=== PATIENT | female | born 1945 | race Caucasian/White ===

== ENCOUNTER 2017-12-26 02:15 | Outpatient (CLI) | payer MEDICARE, OTHER, SELFPAY ==
[2017-12-26 11:42] LABS: Cholesterol 213 mg/dL (50-200); HDL Cholesterol 80 mg/dL (40-60); LDL CHOLESTEROL 115 mg/dL (<100); Triglyceride 146 mg/dL (30-150)
== END 2017-12-26 02:35 ==
PROVIDERS: PCP Family Medicine; Visit Provider Family Medicine
DX: E78.5 Hyperlipidemia, unspecified (principal)
CPT/HCPCS: 36415; 80061; 83721

== ENCOUNTER 2018-02-16 02:15 | Outpatient (CLI) | payer MEDICARE, OTHER, SELFPAY ==
[2018-02-16 12:13] LABS: ALT 33 U/L (12-78); AST 18 U/L (15-37); Albumin 3.6 g/dL (3.4-5.0); Alkaline Phosphatase 65 U/L (46-116); Anion Gap 7.1 mmol/L (3-11); BUN 17 mg/dL (7-18); Bilirubin, Total 0.4 mg/dL (0.2-1.0); CO2 30.9 mmol/L (21.0-32.0); CREATININE 1.08 mg/dL (0.55-1.02); Calcium 9.1 mg/dL (8.5-10.1); Chloride 104 mmol/L (98-107); Estimated GFR 49.87 (mL/min/1.73m2); Glucose 92 mg/dL (70-100); Potassium 4.2 mmol/L (3.5-5.1); Sodium 142 mmol/L (136-145); Total Protein 6.9 g/dL (6.4-8.2)
[2018-02-19 10:58] LABS: Hepatitis C Ab w Rflx HCV PCR Negative (NEGAT)
== END 2018-02-16 02:35 ==
PROVIDERS: PCP Family Medicine; Visit Provider Family Medicine
DX: R73.9 Hyperglycemia, unspecified (principal); N81.9 Female genital prolapse, unspecified; Z11.59 Encounter for screening for other viral diseases
CPT/HCPCS: 36415; 80053; 86803

== ENCOUNTER 2018-03-12 10:12 | Outpatient (CLI) | payer MEDICARE, OTHER, SELFPAY | END 2018-03-12 10:32 | PROVIDERS: PCP Family Medicine; Visit Provider Internal Medicine Interventional Cardiology | DX: R07.9 Chest pain, unspecified (principal); I31.9 Disease of pericardium, unspecified; I51.9 Heart disease, unspecified; I27.20 Pulmonary hypertension, unspecified; G47.30 Sleep apnea, unspecified; R00.2 Palpitations; I11.9 Hypertensive heart disease without heart failure | CPT/HCPCS: 93005; 93010; 99213 ==

== ENCOUNTER 2018-06-25 10:44 | Outpatient (CLI) | payer MEDICARE, OTHER, SELFPAY ==
[2018-06-25 15:20] LABS: NT-proBNP 82 pg/mL
== END 2018-06-25 11:04 ==
PROVIDERS: PCP Family Medicine; Visit Provider Internal Medicine Interventional Cardiology
DX: I27.20 Pulmonary hypertension, unspecified; R07.9 Chest pain, unspecified; I31.9 Disease of pericardium, unspecified; I51.9 Heart disease, unspecified; R06.02 Shortness of breath; I11.9 Hypertensive heart disease without heart failure
CPT/HCPCS: 36415; 99214; 83880; 93005; 93010

== ENCOUNTER 2018-07-04 00:35 | Outpatient (CLI) | payer MEDICARE, OTHER, SELFPAY ==
--- NOTE | 2018-07-04 06:39 | MERGEMPI_ITS ---
*[facility]* *[facility]* [address] [place] [address] Myocardial Perfusion Imaging - SPECT Greg protocol Date of study: 07/04/2018 *PATIENT PRESENTATION* Height: 161.3cm (63.5in) Blood Pressure: Weight: 104.1kg (229lb) BSA: 2.21m^2 Referring physician: Toño Vaca Ordering physician: Javid Perez MD Impressions: Abnormal study after maximal exercise with reproduction of symptoms. The stress electrocardiography portion appears to be a false positive. Summary: 1. Myocardial perfusion imaging: There is a moderate sized, moderately intense, fully reversible defect involving the anterior wall(s). Since this defect resolves completely with attenuation correction and the wall motion is normal this is consistent with breast artifact rather than ischemia. 2. The calculated left ventricular ejection fraction after stress: 61%. LV global systolic function is normal. No left ventricular regional motion abnormality. 3. Stress ECG conclusions: The stress ECG is positive. The stress ECG is indeterminate due to baseline ST/T wave abnormality. 4. Stress: The target heart rate was achieved. The heart rate response to stress is normal. There is resting hypertension with an appropriate response to stress. Stress-induced chest pain which resolved spontaneously. Exercise capacity is average for age. 5. Baseline ECG: Nonspecific ST changes. 6. Treadmill exercise testing was performed using the Greg protocol. The patient exercised for 4 min 52 sec, to protocol stage 2, to a maximal work rate of 6.9mets. Exercise was terminated due to fatigue. Imaging information: gated. Image quality reduced due to breast attenuation. Attenuation correction used. Recommendations: Clinical correlation is recommended. Indication: I50.30. History: REASON FOR TESTING: PATIENT HERE TODAY FOR SURGICAL CLEARANCE FOR A PELVIC PROLAPSE PROCEDURE AT [facility] [place] [facility] FURTHER RISK STRATIFICATION FOR DIASTOLIC HEART DISEASE. SINCE LAST FALL PATIENT REPORTS MIDSTERNAL CHEST PAIN/PRESSURE (09/17) WITH WALKING UP STAIRS, SHOVELING SNOW, AND OCCASIONALLY AT REST. THIS CHEST PAIN/PRESSURE MAY LAST BETWEEN 5 TO 30 MINUTES. OCCASIONALLY HER CHEST PAIN IS ASSOCIATED WITH HORRIBLE MUSCLE YVETTE IN HER LEFT ARM. SHE ALSO NOTES COUGHING WITH CHEST PRESSURE WHEN WALKING UP AND DOWN STAIRS. PATIENT DENIES CHEST PAIN /PRESSURE UP ON ARRIVAL TO TESTING TODAY. SIGNIFICANT PAST MEDICAL HISTORY: DIASTOLIC DYSFUNCTION, PERICARDIAL EFFUSION WITH PERICARDIAL WINDOW, SJOGREN'S DISEASE. SMOKING STATUS: QUIT 2009. SMOKED FOR 50 YEARS, 1 PPD. EXERCISE ROUTINE: ACTIVE WITH DAILY ADL'S OF RUNNING HER INN. Risk factors: Family history of coronary artery disease. Hypertension. Obesity. Dyslipidemia. Cholesterol: 213mg/dl. HDL: 80mg/dl. LDL: 115mg/dl. Triglycerides: 146mg/dl. ALLERGIES: CODEINE, MORPHINE, OXYCODONE, LACTOSE, PENTAZOCINE, VARENICLINE, AUGMENTIN. MEDICATIONS: VITAMIN D 2000 UNITS DAILY, ASPIRIN 81 DAILY, MECLIZINE 12.5 TO 25 MG TID PRN, SUCRALFATE 1 GM DAILY, TRIAMCINOLONE OINTMENT BID, OMEPRRAZOLE 20 MG DAILY, SERTRALINE 25 MG DAILY, TRAMADOL 50 MG PRN, ESTRADOIL 0.01% VAGINAL CREAM PRN, ISOSORBIDE MONONITRATE ER 30 MG DAILY, SPIRONOLACTONE (UNSURE OF DOSE) DAILY. Imaging Technique: Protocol: Greg protocol. Acquisition: Gated SPECT; 1 day - rest/stress. The patient was imaged in the supine position. Attenuation correction used. Isotope administration: - Rest. Tc[99m]-sestamibi. Dose: 9.7mCi. Injection time: 08:30 AM. Injection to stress time: 00:45. - Stress. Tc[99m]-sestamibi. Dose: 31.3mCi. Injection time: 10:10 AM. 1-2 min before end of exercise Baseline ECG: SINUS RHYTHM. HR [address] changes. Stress protocol: + +---+ + !Stage !HR !BP (mmHg) ! + +---+ + !Baseline supine !60 !160/84 (109)! + +---+ + !Baseline standing !67 !160/90 (113)! + +---+ + !Stage I; 1.7mph, 10degrees; 3 min!124!160/80 (107)! + +---+ + !Peak stress !135! ! + +---+ + !Immediate post stress !110!180/80 (113)! + +---+ + !Recovery; 5 min !81 !160/78 (105)! + +---+ + !Recovery; 7 min !77 !150/80 (103)! + +---+ + !Recovery; 10 min !74 !148/80 (103)! + +---+ + * Stress results: STRESS TEST ENDED IN 4 MINUTES 52 SECONDS DUE TO FATIGUE. NORMAL HEART RATE AND BLOOD PRESSURE RESPONSE TO EXERCISE. MAX HEART RATE: 135. 91 % OF TARGET HEART RATE ACHIEVED. MET'S: 6.87. RARE PAC'S IN RECOVERY. HORIZONTAL ST SEGMENT DEPRESSIONS IN LEADS V4, V5 AND V6 AT 4 MINUTES 49 SECONDS OF EXERCISE, BECOMING DOWNWARD SLOPING AT 2 MINUTES [address] SEGMENT DEPRESSIONS RETURN TO BASELINE AT 10 MINUTES 1 SECOND OF RECOVERY. CHEST PRESSURE 6/10 AT PEAK EXERCISE. CHEST PRESSURE 3/10 AT 1 MINUTE OF RECOVERY. CHEST PRESSURE SUBSIDED BY 6 MINUTES OF RECOVERY. FUNCTIONAL CAPACITY: AVERAGE CAPACITY. Maximal heart rate during stress was 135bpm (91% of maximal predicted heart rate). The maximal predicted heart rate was 148bpm. The target heart rate was achieved. The heart rate response to stress is normal. There is resting hypertension with an appropriate response to stress. The rate-pressure product for the peak heart rate and blood pressure was 61171jn Hg/min. Stress-induced chest pain which resolved spontaneously. Exercise capacity is average for age. Stress ECG: The stress ECG is positive. The stress ECG is indeterminate due to baseline ST/T wave abnormality. Stress ECG change: horizontal depression. Severity: 2.0-3.0mm. In lead groups: II, III, aVF and V3 - V6. Myocardial perfusion: Imaging information: gated. Image quality reduced due to breast attenuation. Left ventricular size is normal. There is a moderate sized, moderately intense, fully reversible defect involving the anterior wall(s). Since this defect resolves completely with attenuation correction and the wall motion is normal this is consistent with breast artifact rather than ischemia. Ventricular Function (Wall Motion): The calculated left ventricular ejection fraction after stress: 61%. LV global systolic function is normal. No left ventricular regional motion abnormality. Study data: Toño Vaca MD supervised and was readily available during the procedure. This study was interpreted by [facility]. Study status: Routine. Consent: The risks, benefits, and alternatives to the procedure were explained to the patient and informed consent was obtained. Procedure: Initial setup. A baseline ECG was recorded. Surface ECG leads and manual cuff blood pressure measurements were monitored. Heart sounds: Normal. Lung sounds: Normal. Treadmill exercise testing was performed using the Greg protocol. The patient exercised for 4 min 52 sec, to protocol stage 2, to a maximal work rate of 6.9mets. Exercise was terminated due to fatigue. Study completion: All catheters inserted during the procedure were removed. The patient tolerated the procedure well and was discharged from the lab. Discharge: The patient left the laboratory in stable condition. Birthdate: Patient birthdate: 1945. Sex: Gender: female. Study date: Study date: 07/04/2018. Study time: 00:01 AM. Signature Documentation: - The imaging portion of this study was interpreted by Nuclear Crisis Counselor Toño Vaca MD. - The imaging portion of this study was interpreted by Nuclear Radiologist More Dalal MD. - The Stress ECG portion of this study was interpreted by Toño Vaca MD. Electronically signed by Toño Vaca 07/04/2018 14:58
== END 2018-07-04 00:55 ==
PROVIDERS: PCP Family Medicine; Visit Provider Internal Medicine Interventional Cardiology
DX: R07.89 Other chest pain (principal); I50.30 Unspecified diastolic (congestive) heart failure; R94.30 Abnormal result of cardiovascular function study, unspecified; Z01.810 Encounter for preprocedural cardiovascular examination
CPT/HCPCS: 78452; 93016; 93018; 93017

== ENCOUNTER 2018-07-09 00:44 | Outpatient (CLI) | payer MEDICARE, OTHER, SELFPAY ==
--- NOTE | 2018-07-09 13:55 | MERGE_ITS ---
*[facility]* *[facility]* [address] [place] [address] Date of study: 07/09/2018 Transthoracic Echocardiography M-mode, complete 2D, complete spectral Doppler, and color Doppler *STUDY CONCLUSIONS* Summary: 1. Left ventricle: The cavity size was normal. Systolic function was normal. The estimated ejection fraction was 60-65%. Diastolic parameters were normal for age. There was no evidence of elevated ventricular filling pressure by Doppler parameters. 2. Right ventricle: The cavity size was normal. Wall thickness was normal. Systolic function was normal. 3. Atrial septum: No defect or patent foramen ovale was identified. 4. Pulmonary arteries: Pulmonary systolic pressure was >= 25mm Hg. 5. Inferior vena cava: Poorly visualized. *PATIENT PRESENTATION* Height: 162.6cm ((64in) ) S/D Pressure: 132 / 78 Weight: 103.9kg ((228.5lb) ) BSA: 2.22m^2 Test start time: 01:55 PM. Test stop time: 02:50 PM. ORDERING Javid Perez MD REFERRING Javid Perez MD PERFORMING Unknown CONSULTING Loida Duarte PERFORMING [facility] ROD DRAWER RT Adrienne Montes)(ORDERICK)ANGELA *PROCEDURE DATA* Procedure information: The patient was identified by two identifiers. This study was interpreted by [facility]. Pertinent images and digital data are archived for permanent storage and are available for subsequent review. Comparison was made to the study of 11/19/2013. Study status: Routine. Transthoracic echocardiography. M-mode, complete 2D, complete spectral Doppler, and color Doppler. A Transthoracic Echocardiogram was performed. Scanning was performed from the parasternal, apical, subcostal, and suprasternal notch acoustic windows. Images were obtained using an [id number] cardiac ultrasound machine. Image quality was adequate. Study completion: The patient tolerated the procedure well. History: PMH: Diastolic congestive heart failure I50.30 *CARDIAC ANATOMY* Left ventricle: The cavity size was normal. Systolic function was normal. The estimated ejection fraction was 60-65%. The tissue Doppler parameters were abnormal. Diastolic parameters were normal for age. There was no evidence of elevated ventricular filling pressure by Doppler parameters. Aortic valve: Trileaflet. Doppler: There was no stenosis. There was no regurgitation. VTI ratio of LVOT to aortic valve: 0.71. Valve area (VTI): 1.8cm^2. Indexed valve area (VTI): 0.8cm^2/m^2. Peak velocity ratio of LVOT to aortic valve: 0.83. Valve area (Vmax): 2.1cm^2. Indexed valve area (Vmax): 0.9cm^2/m^2. Mean velocity ratio of LVOT to aortic valve: 0.7. Valve area (Vmean): 1.8cm^2. Indexed valve area (Vmean): 0.8cm^2/m^2. Mean gradient (S): 7.2mm Hg. Peak gradient (S): 13.1mm Hg. Aorta: Aortic root: The aortic root was normal in size. Ascending aorta: The ascending aorta was at upper normal limits. Mitral valve: Doppler: There was no evidence for stenosis. There was no significant regurgitation. Valve area by pressure half-time: 4.1cm^2. Indexed valve area by pressure half-time: 1.9cm^2/m^2. Peak gradient (D): 2.2mm Hg. Left atrium: The atrium was normal in size. Atrial septum: No defect or patent foramen ovale was identified. Right ventricle: The cavity size was normal. Wall thickness was normal. Systolic function was normal. Pulmonic valve: Doppler: There was no evidence for stenosis. There was mild regurgitation. Peak gradient (S): 3.3mm Hg. Tricuspid valve: Doppler: There was mild regurgitation. Pulmonary artery: Poorly visualized. Pulmonary systolic pressure was >= 25mm Hg. Right atrium: The atrium was normal in size. Pericardium: There was no pericardial effusion. Systemic veins: Inferior vena cava: Poorly visualized. Baseline ECG: Normal sinus rhythm. Measurements Left ventricle Value Reference LV ID, ED, PLAX 5.2 cm 3.5 - 6.0 LV ID, ES, PLAX 3.4 cm 2.1 - 4.0 LV PW thickness, ED, PLAX 1.1 cm LV end-diastolic volume, 1-p A2C 39 ml LV ejection fraction, 1-p A2C 62 % LV end-diastolic volume, 1-p A4C 49 ml LV ejection fraction, 1-p A4C 64 % LV e', lateral 0.093 m/sec LV E/e', lateral 8 LV e', medial 0.062 m/sec LV E/e', medial 12 LV e', average 0.078 m/sec LV E/e', average 10 Ventricular septum Value Reference IVS thickness, ED, PLAX 1.1 cm LVOT Value Reference LVOT ID, A-P 1.8 cm LVOT area 2.5 cm^2 LVOT peak velocity, S 1.5 m/sec LVOT mean velocity, S 0.89 m/sec LVOT VTI, S 27.0 cm LVOT peak gradient, S 9 mm Hg LVOT mean gradient, S 3.9 mm Hg Stroke volume (SV), LVOT DP 68 ml Stroke index (SV/bsa), LVOT DP 31 ml/m^2 Aortic valve Value Reference Aortic valve peak velocity, S 1.8 m/sec Aortic valve mean velocity, S 1.27 m/sec Aortic valve VTI, S 38.0 cm Aortic mean gradient, S 7.2 mm Hg Aortic peak gradient, S 13.1 mm Hg VTI ratio, LVOT/AV 0.71 Aortic valve area, VTI 1.8 cm^2 Velocity ratio, peak, LVOT/AV 0.83 Aortic valve area, peak velocity 2.1 cm^2 Velocity ratio, mean, LVOT/AV 0.7 Aortic valve area, mean velocity 1.8 cm^2 Aortic valve area/bsa, mean velocity 0.8 cm^2/m^2 Aorta Value Reference Aortic root ID, ED 2.7 cm Ascending aorta ID, A-P, S 3.1 cm Left atrium Value Reference LA ID, A-P, ES 4.3 cm LA ID/bsa, A-P 1.9 cm/m^2 <=2.2 LA area, ES, A4C 19.9 cm^2 8.8 - 23.4 LA area, ES, A2C 16 cm^2 LA volume/bsa, ES, 1-p A4C 30 ml/m^2 LA volume, ES, 2-p 47 ml LA volume/bsa, ES, 2-p 21 ml/m^2 LA/aortic root ratio 1.59 Mitral valve Value Reference Mitral E-wave peak velocity 0.74 m/sec Mitral A-wave peak velocity 0.88 m/sec Mitral deceleration time 183 ms 150 - 230 Mitral pressure half-time 53 ms Mitral peak gradient, D 2.2 mm Hg Mitral E/A ratio, peak 0.84 Mitral valve area, PHT, DP 4.1 cm^2 Pulmonary veins Value Reference Pulmonary vein peak velocity, S 0.52 m/sec Pulmonary vein peak velocity, D 0.52 m/sec Pulmonary vein velocity ratio, peak, 1.01 S/D Pulmonary vein A-wave reversal peak 0.35 m/sec velocity Pulmonary vein A-wave reversal 149 ms duration Tricuspid valve Value Reference Tricuspid regurg peak velocity 2.7 m/sec Tricuspid peak RV-RA gradient 30 mm Hg Right atrium Value Reference RA area, ES, A4C 14.4 cm^2 8.3 - 19.5 Pulmonic valve Value Reference Pulmonic peak gradient, S 3.3 mm Hg Legend: (L) and (H) juan carlos values outside specified reference range. I have personally reviewed the images and have reviewed and edited the reported findings. Electronically signed by Javid Perez MD 07/09/2018 18:12
== END 2018-07-09 01:04 ==
PROVIDERS: PCP Family Medicine; Visit Provider Internal Medicine Interventional Cardiology
DX: I50.30 Unspecified diastolic (congestive) heart failure (principal)
CPT/HCPCS: 93306

== ENCOUNTER 2018-07-20 10:04 | Outpatient (CLI) | payer MEDICARE, OTHER, SELFPAY ==
[2018-07-20 13:40] LABS: Anion Gap 10.3 mmol/L (3-11); BUN 20 mg/dL (7-18); CO2 29.7 mmol/L (21.0-32.0); CREATININE 1.08 mg/dL (0.55-1.02); Calcium 9.4 mg/dL (8.5-10.1); Chloride 102 mmol/L (98-107); Estimated GFR 49.87 (mL/min/1.73m2); Glucose 99 mg/dL (70-100); NT-proBNP 55 pg/mL; Potassium 3.8 mmol/L (3.5-5.1); Sodium 142 mmol/L (136-145)
== END 2018-07-20 10:24 ==
PROVIDERS: PCP Family Medicine; Visit Provider Internal Medicine Interventional Cardiology
DX: I50.30 Unspecified diastolic (congestive) heart failure (principal); I31.9 Disease of pericardium, unspecified
CPT/HCPCS: 36415; 80048; 83880

== ENCOUNTER 2018-07-23 09:41 | Outpatient (CLI) | payer MEDICARE, OTHER, SELFPAY | END 2018-07-23 10:01 | PROVIDERS: PCP Family Medicine; Visit Provider Internal Medicine Interventional Cardiology | DX: R07.9 Chest pain, unspecified (principal); I11.9 Hypertensive heart disease without heart failure; I31.9 Disease of pericardium, unspecified; I51.9 Heart disease, unspecified | CPT/HCPCS: 99214; 99215 ==

== ENCOUNTER 2018-09-10 08:38 | Outpatient (CLI) | payer MEDICARE, OTHER, SELFPAY | END 2018-09-10 08:58 | PROVIDERS: PCP Family Medicine; Visit Provider Internal Medicine Interventional Cardiology | DX: R07.9 Chest pain, unspecified (principal); I11.9 Hypertensive heart disease without heart failure; I31.9 Disease of pericardium, unspecified; I51.9 Heart disease, unspecified; I27.20 Pulmonary hypertension, unspecified; R11.0 Nausea | CPT/HCPCS: 99214; 99215 ==

== ENCOUNTER 2018-09-13 02:06 | Outpatient (CLI) | payer MEDICARE, OTHER, SELFPAY ==
[2018-09-13 11:06] LABS: Abs Immature Grans 0.01 k/cumm (0.0-0.09); Absolute Basophil Count 0.03 k/cumm (0.0-0.2); Absolute Eosinophil Count 0.15 k/cumm (0.0-0.7); Absolute Lymphocyte Count 2.17 k/cumm (1.2-3.4); Absolute Neutrophil Count 2.71 k/cumm (1.2-6.7); Basophils % 0.5; Eosinophils % 2.6; HCT 38.9 % (36.0-46.0); HGB 12.8 g/dL (12.0-15.5); Immature Grans % 0.2; Lymphocytes % 38.3; Mean Corp. HGB Concentration 32.9 g/dL (32.0-36.0); Mean Corpuscular Volume 97.3 fL (80-95); Mean Platelet Volume 9.6 fL (8.0-11.0); Monocytes % 10.6; Neutrophils % 47.8; Platelet Count 225 x1000/uL (130-400); RBC Distribution Width 12.9 % (11.7-14.6); White Blood Cell Count 5.67 k/cumm (4.4-10.8)
[2018-09-13 11:17] LABS: ALT 27 U/L (12-78); AST 16 U/L (15-37); Albumin 3.5 g/dL (3.4-5.0); Alkaline Phosphatase 68 U/L (46-116); Anion Gap 9.2 mmol/L (3-11); BUN 13 mg/dL (7-18); Bilirubin, Total 0.4 mg/dL (0.2-1.0); CO2 27.8 mmol/L (21.0-32.0); CREATININE 1.14 mg/dL (0.55-1.02); Calcium 8.6 mg/dL (8.5-10.1); Chloride 105 mmol/L (98-107); Estimated GFR 46.85 (mL/min/1.73m2); Glucose 101 mg/dL (70-100); Potassium 4.2 mmol/L (3.5-5.1); Sodium 142 mmol/L (136-145); Total Protein 6.5 g/dL (6.4-8.2)
[2018-09-13 11:18] LABS: Iron 85 ug/dL (50-175); Total Iron Binding Capacity 301 ug/dL (250-450); Transferrin Sat 28 % (15-50)
== END 2018-09-13 02:26 ==
PROVIDERS: PCP Family Medicine; Visit Provider Family Medicine
DX: R10.9 Unspecified abdominal pain (principal); Z86.2 Personal history of diseases of the blood and blood-forming organs and certain disorders involving the immune mechanism
CPT/HCPCS: 36415; 80053; 83540; 83550; 85025

== ENCOUNTER 2018-11-21 15:52 | Outpatient (CLI) | payer MEDICARE, OTHER, SELFPAY ==
--- NOTE | 2018-11-21 15:52 | DI.RAD_ITS ---
SYMPTOMS/DIAGNOSIS: LEFT FOOT PAIN WITH EDEMA/TENDERNESS, LATERAL FOOT, M79.672 LEFT FOOT: Comparison is made with December,. There is minimal deformity of the medial 1st metatarsal head, likely reflecting previous bunionectomy. There are mild degenerative changes at the 1st MTP joint. There are degenerative changes at the 1st tarsometatarsal joint and prior proximal 1st metatarsal osteotomy. The remaining MTP joints are unremarkable. No bony erosions are seen. IMPRESSION: Stable degenerative and postsurgical changes.
[2018-11-21 16:37] LABS: Abs Immature Grans 0.01 k/cumm (0.0-0.09); Absolute Basophil Count 0.03 k/cumm (0.0-0.2); Absolute Monocyte Count 1.01 k/cumm (0.11-0.7); Absolute Neutrophil Count 3.44 k/cumm (1.2-6.7); Basophils % 0.4; Eosinophils % 2.6; HCT 39.1 % (36.0-46.0); Immature Grans % 0.1; Mean Corp. HGB Concentration 33.2 g/dL (32.0-36.0); Mean Corpuscular Volume 96.3 fL (80-95); Mean Platelet Volume 9.1 fL (8.0-11.0); Monocytes % 13.1; Neutrophils % 44.8; Platelet Count 238 x1000/uL (130-400); RBC 4.06 m/cumm (4.00-5.20); RBC Distribution Width 12.6 % (11.7-14.6); White Blood Cell Count 7.69 k/cumm (4.4-10.8)
[2018-11-21 17:43] LABS: C-Reactive Protein 0.47 mg/dL (0.0-0.3); Uric Acid 5.4 mg/dL (2.6-6.0)
== END 2018-11-21 16:12 ==
PROVIDERS: PCP Family Medicine; Visit Provider Family Medicine
DX: M79.672 Pain in left foot (principal); M19.072 Primary osteoarthritis, left ankle and foot
CPT/HCPCS: 36415; 73630; 84550; 85025; 86140

== ENCOUNTER 2019-01-29 02:14 | Outpatient (CLI) | payer MEDICARE, SELFPAY ==
[2019-01-29 12:12] LABS: BUN 17 mg/dL (7-18); Calcium 9.5 mg/dL (8.5-10.1); Calculated LDL 129 mg/dL; Chloride 105 mmol/L (98-107); Cholesterol 230 mg/dL (50-200); Estimated GFR 44.04 (mL/min/1.73m2); Glucose 93 mg/dL (70-100); HDL Cholesterol 70 mg/dL (40-60); Potassium 4.2 mmol/L (3.5-5.1); Sodium 144 mmol/L (136-145); Triglyceride 155 mg/dL (30-150)
== END 2019-01-29 02:34 ==
PROVIDERS: PCP Family Medicine; Visit Provider Family Medicine
DX: E78.5 Hyperlipidemia, unspecified (principal)
CPT/HCPCS: 36415; 80048; 80061

== ENCOUNTER 2019-02-28 03:20 | Outpatient (CLI) | payer MEDICARE, SELFPAY ==
[2019-02-28 10:46] LABS: Iron 73 ug/dL (50-170)
[2019-02-28 11:01] LABS: Anion Gap 7.1 mmol/L (3-11); BUN 16 mg/dL (7-18); CO2 31.9 mmol/L (21.0-32.0); CREATININE 1.12 mg/dL (0.55-1.02); Calcium 9.5 mg/dL (8.5-10.1); Chloride 104 mmol/L (98-107); Estimated GFR 47.69 (mL/min/1.73m2); Ferritin 181 ng/mL (8-252); Glucose 101 mg/dL (74-106); Potassium 4.4 mmol/L (3.5-5.1); Sodium 143 mmol/L (136-145); TSH 4.85 uIU/mL (0.36-3.74)
== END 2019-02-28 03:40 ==
PROVIDERS: PCP Family Medicine; Visit Provider Family Medicine
DX: D12.6 Benign neoplasm of colon, unspecified (principal); F32.9 Major depressive disorder, single episode, unspecified; G25.81 Restless legs syndrome; R79.89 Other specified abnormal findings of blood chemistry
CPT/HCPCS: 36415; 80048; 82728; 83540; 84443

== ENCOUNTER → 2019-03-12 13:05 | Outpatient (BNVA) | payer MEDICARE, OTHER, SELFPAY | PROVIDERS: PCP Family Medicine; Referring Provider Family Medicine; Visit Provider Internal Medicine Cardiovascular Disease | DX: I31.9 Disease of pericardium, unspecified (principal); I51.9 Heart disease, unspecified; I10 Essential (primary) hypertension; F17.200 Nicotine dependence, unspecified, uncomplicated | CPT/HCPCS: 99205; 99215 ==

== ENCOUNTER 2019-03-14 01:16 | Outpatient (CLI) | payer MEDICARE, OTHER, SELFPAY ==
--- NOTE | 2019-03-14 12:15 | DI.MAMMO_ITS ---
EXAM: MAMMO SCREENING CLINICAL HISTORY: screening, Z12.39 TECHNIQUE: Mammograms were interpreted according to the usual protocol including computer analysis w [employer] CAD system, tomosynthesis and C-view imaging. COMPARISON: 2009 through 2017. FINDINGS: The breasts are composed of scattered fibroglandular densities, breast density category B. No suspic ious masses or suspicious microcalcifications are seen. There is a stable area of nodularity central ly in the inferior left breast. IMPRESSION: Category 2, negative mammogram with benign findings. Yearly screening mammography is recommended. BI-RADS Cat 2 - Benign Findings Breast Density - Category B - Scattered areas of fibroglandular density
== END 2019-03-14 01:36 ==
PROVIDERS: PCP Family Medicine; Visit Provider Family Medicine
DX: Z12.31 Encounter for screening mammogram for malignant neoplasm of breast (principal)
CPT/HCPCS: 77063; 77067

== ENCOUNTER 2019-05-27 14:49 | Outpatient (CLI) | payer MEDICARE, SELFPAY ==
--- NOTE | 2019-05-27 14:30 | DI.RAD_ITS ---
EXAM: XR CHEST 2V PA AND LATERAL INDICATION: SHORTNESS OF BREATH/HX OF PERICARDITIS, R06.02. COMPARISON: CHEST 2 VIEWS PA,LAT from 10/31/2012 TECHNIQUE: 2D digital imaging was performed. FINDINGS: The heart size and pulmonary vasculature are within normal limits. The lungs are clear. No pleural effusion or pneumothorax is present. Age-appropriate degenerative changes are seen in the spine. IMPRESSION: No acute pulmonary process.
[2019-05-27 15:42] LABS: Abs Immature Grans 0.02 k/cumm (0.0-0.09); Absolute Basophil Count 0.03 k/cumm (0.0-0.2); Absolute Eosinophil Count 0.21 k/cumm (0.0-0.7); Absolute Lymphocyte Count 3.15 k/cumm (1.2-3.4); Absolute Monocyte Count 0.98 k/cumm (0.11-0.7); Absolute Neutrophil Count 3.64 k/cumm (1.2-6.7); Basophils % 0.4; Eosinophils % 2.6; HCT 41.8 % (36.0-46.0); HGB 13.5 g/dL (12.0-15.5); Immature Grans % 0.2 %; Lymphocytes % 39.2; Mean Corp. HGB Concentration 32.3 g/dL (32.0-36.0); Mean Corpuscular Hemoglobin 30.8 pg (27.0-33.0); Mean Corpuscular Volume 95.2 fL (80-95); Monocytes % 12.2; Neutrophils % 45.4; Platelet Count 264 x1000/uL (130-400); RBC 4.39 m/cumm (4.00-5.20); White Blood Cell Count 8.03 k/cumm (4.4-10.8)
[2019-05-27 17:01] LABS: Magnesium 2.1 mg/dL (1.8-2.4); TSH 4.65 uIU/mL (0.36-3.74)
[2019-05-27 17:39] LABS: Anion Gap 9.5 mmol/L (3-11); BUN 17 mg/dL (7-18); CO2 28.5 mmol/L (21.0-32.0); CREATININE 1.04 mg/dL (0.55-1.02); Calcium 8.8 mg/dL (8.5-10.1); Chloride 104 mmol/L (98-107); Estimated GFR 51.94 (mL/min/1.73m2); Glucose 85 mg/dL (74-106); Potassium 4.1 mmol/L (3.5-5.1); Sodium 142 mmol/L (136-145)
== END 2019-05-27 15:09 ==
PROVIDERS: Internal Medicine Cardiovascular Disease; PCP Family Medicine; Visit Provider Family Medicine
DX: R06.02 Shortness of breath (principal); I10 Essential (primary) hypertension; E83.42 Hypomagnesemia; R79.89 Other specified abnormal findings of blood chemistry
CPT/HCPCS: 36415; 80048; 71046; 83735; 84443; 85025

== ENCOUNTER 2019-08-20 01:34 | Outpatient (CLI) | payer MEDICARE, SELFPAY ==
[2019-08-20 16:23] LABS: TSH (W/Ref FT4) 2.75 uIU/mL (0.36-3.74)
== END 2019-08-20 01:54 ==
PROVIDERS: PCP Family Medicine; Visit Provider Family Medicine
DX: E03.9 Hypothyroidism, unspecified (principal)
CPT/HCPCS: 36415; 84443

== ENCOUNTER → 2019-09-13 13:31 | Outpatient (BNVA) | payer MEDICARE, SELFPAY | PROVIDERS: PCP Family Medicine; Referring Provider Family Medicine; Visit Provider Internal Medicine Cardiovascular Disease | DX: R06.02 Shortness of breath (principal); I31.9 Disease of pericardium, unspecified | CPT/HCPCS: 99214 ==

== ENCOUNTER 2019-10-14 20:31 | Outpatient (REF) | payer MEDICARE, SELFPAY ==
[2019-10-14 21:34] LABS: Absolute Basophil Count 0.01 k/cumm (0.0-0.2); Absolute Eosinophil Count 0.16 k/cumm (0.0-0.7); Absolute Lymphocyte Count 2.99 k/cumm (1.2-3.4); Absolute Monocyte Count 0.84 k/cumm (0.11-0.7); Absolute Neutrophil Count 3.49 k/cumm (1.2-6.7); Basophils % 0.1; Eosinophils % 2.1; HCT 41.5 % (36.0-46.0); HGB 13.3 g/dL (12.0-15.5); Lymphocytes % 39.9; Mean Corpuscular Hemoglobin 30.7 pg (27.0-33.0); Mean Corpuscular Volume 95.8 fL (80-95); Mean Platelet Volume 10.4 fL (8.0-11.0); Monocytes % 11.2; Neutrophils % 46.7; Platelet Count 256 x1000/uL (130-400); RBC 4.33 m/cumm (4.00-5.20); RBC Distribution Width 13.4 % (11.7-14.6); White Blood Cell Count 7.49 k/cumm (4.4-10.8)
[2019-10-14 21:45] LABS: ALT 38 U/L (14-59); AST 25 U/L (15-37); Albumin 3.9 g/dL (3.4-5.0); Alkaline Phosphatase 67 U/L (46-116); Anion Gap 9.8 mmol/L (3-11); BUN 14 mg/dL (7-18); Bilirubin, Total 0.4 mg/dL (0.2-1.0); CO2 28.2 mmol/L (21.0-32.0); CREATININE 1.15 mg/dL (0.55-1.02); Calcium 8.9 mg/dL (8.5-10.1); Chloride 104 mmol/L (98-107); Estimated GFR 46.25 (mL/min/1.73m2); Glucose 97 mg/dL (74-106); NT-proBNP 81 pg/mL (<300); Potassium 3.7 mmol/L (3.5-5.1); Sodium 142 mmol/L (136-145); Total Protein 7.1 g/dL (6.4-8.2)
== END 2019-10-14 20:51 ==
LOC: LBN 20:31
PROVIDERS: PCP Family Medicine; Visit Provider Family Medicine
DX: R06.02 Shortness of breath (principal); H81.10 Benign paroxysmal vertigo, unspecified ear
CPT/HCPCS: 80053; 83880; 85025

== ENCOUNTER 2019-11-08 11:20 | Outpatient (CLI) | payer MEDICARE, SELFPAY ==
--- NOTE | 2019-11-08 11:15 | DI.RAD_ITS ---
EXAM: XR PELVIS AP CLINICAL HISTORY: eval bilateral R>L hip pain. TECHNIQUE: 2D digital imaging was performed. COMPARISON: No exams were available for comparison FINDINGS: BONES: No acute fracture is present. No bony destructive lesion is seen. There is sacralization of the right L5 transverse process. JOINTS: No dislocation present. No joint space narrowing is present. There is mild to moderate aceta bular spurring, greatest superiorly on the right. There is mild spurring of the SI joints. SOFT TISSUE: Normal. IMPRESSION: Mild degenerative changes, greater of the right hip. DATA REPOSITORY: RADIATION DOSE DELIVERED:
--- NOTE | 2019-11-08 11:15 | DI.RAD_ITS ---
EXAM: XR KNEE LT 3V AP,LAT,JUNIOR CLINICAL HISTORY: eval L knee pain. TECHNIQUE: 2D digital imaging was performed. COMPARISON: MR MRI L LOWER JOINT WO CONT from 03/13/2013 FINDINGS: BONES: No acute fracture is present. No bony destructive lesion is seen. JOINTS: There is moderate narrowing of the medial femoral tibial joint. There is mild periarticular spurring.. No joint effusion is seen. SOFT TISSUE: Normal. IMPRESSION: Moderate degenerative changes of the medial femoral tibial joint. DATA REPOSITORY: RADIATION DOSE DELIVERED:
--- NOTE | 2019-11-08 11:15 | DI.RAD_ITS ---
EXAM: XR KNEE RT 3V AP,LAT,JUNIOR CLINICAL HISTORY: eval R knee pain. TECHNIQUE: 2D digital imaging was performed. COMPARISON: CR XR KNEE LT 3V AP,LAT,JUNIOR from 11/08/2019 FINDINGS: BONES: No acute fracture is present. No bony destructive lesion is seen. JOINTS: The knee is normally aligned. No joint effusion is seen. There is moderate narrowing of the m edial femoral tibial joint space and mild periarticular spurring. There is spurring at the quadricep s insertion on the patella. SOFT TISSUE: Normal. IMPRESSION: Moderate degenerative changes. DATA REPOSITORY: RADIATION DOSE DELIVERED:
== END 2019-11-08 11:40 ==
PROVIDERS: PCP Family Medicine; Referring Provider Family Medicine; Visit Provider Student in an Organized Health Care Education/Training Program
DX: M25.561 Pain in right knee (principal); M25.562 Pain in left knee; M25.551 Pain in right hip; M25.552 Pain in left hip; M17.11 Unilateral primary osteoarthritis, right knee; M17.12 Unilateral primary osteoarthritis, left knee; M25.851 Other specified joint disorders, right hip; M25.852 Other specified joint disorders, left hip; M16.0 Bilateral primary osteoarthritis of hip
CPT/HCPCS: 20610; 73562; 99203; 99214; 72170; J1040

== ENCOUNTER 2019-11-13 03:12 | Outpatient (CLI) | payer MEDICARE, SELFPAY ==
--- NOTE | 2019-11-13 13:56 | DI.US_ITS ---
APPROVED REPORT EXAM: Comprehensive 2D, Doppler, and color-flow Echocardiogram Patient Location: Out-Patient [place] [facility] Repairer: Lexi Capellan RDCS (AE) Indications: SOB, Murmur Other Information Study Quality: Adequate Conclusion Left Ventricle : Left ventricle is borderline dilated. The left ventricular systolic function is norm al. The left ventricular ejection fraction is within the normal range. There is normal left ventricul ar wall thickness. There is normal LV segmental wall motion. The left ventricular diastolic function is normal. LVEF is 55-60%. Right Ventricle : The right ventricle is normal size. The right ventricular systolic function is norm al. The RVSP is 29.9 mmHg. Atria : The left atrium size is normal. The right atrium size is normal. Valves: There are no hemodynamically significant valvular lesions. Great Vessels : The aortic root is normal in size. The ascending aorta is mildly dilated. IVC is norm al in size and collapses >50% with inspiration. Compared to study from 07/09/2018, there is no significant change. Wall motion Left Ventricle Left ventricle is borderline dilated. The left ventricular systolic function is normal. The left vent ricular ejection fraction is within the normal range. There is normal left ventricular wall thickness . There is normal LV segmental wall motion. The left ventricular diastolic function is normal. There is no ventricular septal defect visualized. LVEF is 55-60%. Right Ventricle The right ventricle is normal size. The right ventricular systolic function is normal. The RVSP is 29 .9 mmHg. Atria The left atrium size is normal. The right atrium size is normal. The interatrial septum is intact wit h no evidence for an atrial septal defect. Aortic Valve Aortic valve is trileaflet. There is no aortic valvular stenosis. No aortic regurgitation is present. Mitral Valve The mitral valve is normal in structure. Mild mitral annular calcification. No evidence of mitral jolly ve stenosis. Trace to mild mitral regurgitation. Tricuspid Valve The tricuspid valve is normal in structure. There is no tricuspid valve stenosis. Trace tricuspid reg urgitation. Pulmonic Valve The pulmonary valve is normal in structure. There is no pulmonic valvular stenosis. Trace to mild pul riley regurgitation. Great Vessels The aortic root is normal in size. The ascending aorta is mildly dilated. IVC is normal in size and c ollapses >50% with inspiration. Pericardium There is no pericardial effusion. 2D Dimensions IVSD d PLAX 0.69 cm F: 0.6-1.0 LV Vol A2C d MOD 83.5 mL LVPW d PLAX 0.70 cm F: 0.6 - 1.0 LV Vol A4C d MOD 91.4 mL LVID d PLAX 5.40 cm F: 3.8 - 5.2 LA vol/ BSA A2C s A-L 22.5 mL/m2 LVDs 3.80 cm F: 2.2 - 3.5 LA vol/ BSA A4C s A-L 27.1 mL/m2 Ao Root d 2.23 cm F: 2.7 - 3.3 LA Vol/ BSA Biplane s A-L 24.9 mL/m2 RA Area A4C 10.57 cm2 LA Area A4C s MOD 19.08 cm2 RA Vol/ BSA A4C s A-L 10.2 mL/m2 LA Area A2C s MOD 17.25 cm2 Ao Asc Diam d 3.28 cm F: 2.3 - 3.1 LV EF A4C MOD 53.7 % LV EF Teichholz 55.6 % LV EF A2C MOD 59.7 % LVEF (Paz's) 54.58 % F: 54 - 74 LV EF Biplane MOD 54.6 % LV Volume 64.67 mL F: 46 - 106 SV 47.69 mL LV Volume Index 31.09 mL/m2 F: 29 - 61 SV Index 22.90 mL/m2 LV Vol Biplane MOD 87.4 mL FS 29.25 % M-Mode TAPSE 2.17 cm (M/F) >1.7 LV Diastology MV E' medial 0.067 (>0.07 m/s) E/A Ratio 0.8 LV E/e MED 10.20 (<14) MV E Vmax 0.69 (0.4-1.3 m/s) MV E' lateral 0.120 (>0.1 m/s) MV A Vmax 0.85 (0.4-1.3 m/s) LV E/e LAT 5.75 (<14) MV E/A Ratio 0.81 MV E/E' medial 10.25 MV E/E' lateral 5.75 Aortic Valve LVOT Area 2.88 cm2 AoV Area Vmax 2.75 cm2 LVOT Vmax 1.58 m/s AoV Area/ BSA (Vmax) 1.32 cm2/m2 LVOT Mean Smith. 0.86 m/s RASHIDA Mean Smith. 2.24 cm2 LVOT Peak Grad 10.0 mmHg RASHIDA Mean Smith. Index 1.08 cm2/m2 LVOT Mean Grad 3.8 mmHg LVOT VTI 0.318 m LVOT Diam s 1.90 cm AoV Vmax 1.65 m/s Velocity Ratio 0.95 AoV Mean Smith. 1.11 m/s AoV Peak Grad 10.9 mmHg LVOT SV 91.60 mL AoV Mean Grad 5.6 mmHg AoV VTI 0.349 m AoV Area VTI 2.62 cm2 AoV Area/ BSA (VTI) 1.26 cm/m2 Mitral Valve MV DT 173 (160-240 msec) MV PHT 50 msec MV Area PHT 4.39 cm2 Pulmonary Valve PV Vmax 0.96 (0.5-1.5 m/s) RVOT Peak Gr. 2.21 mmHg PV Peak Grad 3.7 mmHg RVOT Mean Gr. 1.15 mmHg PV Mean Grad 2.1 mmHg RVOT VTI 0.163 m PV VTI 0.212 m RVOT Vmax 0.74 m/s Tricuspid Valve TR Peak Grad 26.8 mmHg TR Vmax 2.59 m/s RA Pressure 3.00 mmHg RVSP (TR) 29.9 mmHg
== END 2019-11-13 03:32 ==
PROVIDERS: PCP Family Medicine; Visit Provider Family Medicine
DX: R06.02 Shortness of breath (principal); I77.810 Thoracic aortic ectasia; I34.0 Nonrheumatic mitral (valve) insufficiency
CPT/HCPCS: 93306

== ENCOUNTER 2019-12-11 18:22 | Outpatient (REF) | payer MEDICARE, SELFPAY ==
[2019-12-11 23:00] LABS: Abs Immature Grans 0.02 10^3/uL (0.0-0.06); Absolute Basophil Count 0.03 10^3/uL (0.0-0.2); Absolute Eosinophil Count 0.16 10^3/uL (0.0-0.7); Absolute Lymphocyte Count 3.44 10^3/uL (1.2-3.4); Absolute Monocyte Count 0.92 10^3/uL (0.1-0.8); Absolute Neutrophil Count 3.38 10^3/uL (1.2-6.7); Basophils % 0.4; HCT 42.2 % (36.0-46.0); HGB 13.6 g/dL (11.2-15.7); Immature Grans % 0.3; Lymphocytes % 43.3; MCHC 32.2 % (32.0-36.0); MCV 96.1 fL (80-95); MPV 10.4 fL (8.0-11.0); Monocytes % 11.6; Neutrophils % 42.4; Nucleated RBC 0 %; Platelet Count 243 10^3/uL (130-400); RBC 4.39 10^6/uL (3.93-5.22); RDW 12.7 % (11.7-14.6); WBC 7.95 10^3/uL (4.4-10.8)
[2019-12-11 23:28] LABS: ALT 45 U/L (14-59); AST 26 U/L (15-37); Albumin 3.7 g/dL (3.4-5.0); Alkaline Phosphatase 66 U/L (46-116); Amylase 46 U/L (25-115); Anion Gap 7.4 mmol/L (3-11); BUN 15 mg/dL (7-18); Bilirubin, Total 0.3 mg/dL (0.2-1.0); C-Reactive Protein 0.43 mg/dL (0.0-0.3); CO2 29.6 mmol/L (21.0-32.0); Calcium 9.1 mg/dL (8.5-10.1); Chloride 104 mmol/L (98-107); Estimated GFR 48.55 (mL/min/1.73m2); Glucose 85 mg/dL (74-106); Lipase 103 U/L (73-393); Potassium 4.3 mmol/L (3.5-5.1); Sodium 141 mmol/L (136-145); TSH 4.67 uIU/mL (0.36-3.74); Total Protein 7.1 g/dL (6.4-8.2)
== END 2019-12-11 18:42 ==
LOC: LBN 18:22
PROVIDERS: PCP Family Medicine; Visit Provider Family Medicine
DX: R10.9 Unspecified abdominal pain (principal); E03.9 Hypothyroidism, unspecified; R07.9 Chest pain, unspecified
CPT/HCPCS: 80053; 83690; 82150; 84443; 85025; 86140

== ENCOUNTER → 2019-12-31 11:20 | Outpatient (BNVA) | payer MEDICARE, SELFPAY | PROVIDERS: PCP Family Medicine; Referring Provider Family Medicine; Visit Provider Surgery | DX: K21.9 Gastro-esophageal reflux disease without esophagitis (principal); R13.10 Dysphagia, unspecified; R19.7 Diarrhea, unspecified; K44.9 Diaphragmatic hernia without obstruction or gangrene; M79.18 Myalgia, other site; M35.00 Sjogren syndrome, unspecified; Z11.59 Encounter for screening for other viral diseases | CPT/HCPCS: 99213 ==

== ENCOUNTER 2020-01-17 07:47 | Outpatient (CLI) | payer MEDICARE, SELFPAY ==
[2020-01-19 12:40] LABS: COVID-19 RT-PCR Result NEGATIVE (Negative)
== END 2020-01-17 08:07 ==
PROVIDERS: PCP Family Medicine; Visit Provider Surgery
DX: Z11.59 Encounter for screening for other viral diseases (principal); Z01.818 Encounter for other preprocedural examination
CPT/HCPCS: U0003

== ENCOUNTER 2020-01-22 06:23 | Day surgery (SDC) | payer MEDICARE, SELFPAY ==
--- NOTE | 2020-01-22 06:33 | W.PM.ENDDOP ---
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 Ibanez is a pleasant 74 year old female who is here today to discuss an upper endoscopy. She is known to have gastroesophageal reflux disease and has been on omeprazole 40 mg daily for quite some years. She tells me that she had a CT scan done in 2018 which showed a large hiatal hernia. Over the last month or so she has noted increased reflux symptoms. She has to sleep propped up otherwise she wakes up either burping or throwing up foam and bile. 2 weeks ago she was changed from omeprazole to pantoprazole 40 mg twice daily and she has not noted much difference in her symptoms. She tells me that she continues to throw up foam and bile sometimes tinged with a little bit of blood. She has been eating a bland diet. If she tries to eat anything fatty or spicy she will have worse heartburn and reflux type symptoms. She is able to eat chicken rice bread without any difficulty. She has not lost any weight. She also states that she feels like food even water sometimes gets stuck in her esophagus and she has to regurgitate them. She also notes increased episodes of diarrhea. She denies any melena or hematochezia. She has never had an upper endoscopy before. She did have a colonoscopy and is due for another 1 in the spring 2020. FINDINGS: duodenal mass- looks like a lipoma mild inflammation of the pylorus and antrum. Multiple <1 cm fundic gland polyps Hiatal hernia Mild inflammation of the GE junction PROCEDURE DESCRIPTION: After informed consent was obtained the patient was take to the procedure room and placed in a supine position. Monitors were applied and a time out was done. The patients name, date of , procedure type, allergies to medications and metal in their body was reviewed. A bite block was placed and the patient was sedated. Once sedated and comfortable the gastroscope was advanced through the oropharynx which was grossly normal into the esophagus. The proximal and mid-esophagus were normal. In the distal esophagus there was a Hiatal Hernia noted and mild inflammation noted. The scope was advanced into the stomach and through the pylorus into the 3rd portion of the duodenum. There was a well circumscribed, and soft mass in the 3rd portion of the duodenum. The mucosa was normal. This was consistent with a lipoma. Biopsies were done of the presumed lipoma. The scope was retracted back into the stomach. There was mild inflammation noted of the pylorus and body of the stomach. There were numerous small (<1 cm) benign appearing polyps. Biopsies were done of the pylorus and antrum to rule out H. pylori. There were no ulcers. The scope was retro-flexed. The cardia and fundus were noted to be normal. There was a hiatal hernia noted. The scope was retracted back into the esophagus and biopsies were done of the GE junction to rule out Schneider's. The Z line was irregular. The distal esophagus was tortuous. The GE junction was at 32 cm. The scope was removed and the patient was woken up and taken back to [facility] in stable condition. Follow up: 2 weeks. Will start on Carafate to see if this helps.
--- NOTE | 2020-01-22 06:35 | PDOC.DSDIS_ITS ---
Discharge Plan Disposition Patient Disposition: HOME Condition: Good Discharge Details Reason For Visit: EGD Attending Provider: Therese Smith Primary Care Provider: Loida Duarte Home Meds and New Rx's Prescriptions: New sucralfate [Carafate] 1 gram tablet 1 g PO TID Qty: 42 RF: 0 Continued halobetasol propionate 0.05 % ointment 1 applic TP BID RF: 0 triamcinolone acetonide 0.5 % ointment 1 applic TP BID Qty: 15 RF: 4 losartan 25 mg tablet 25 mg PO DAILY Qty: 90 RF: 4 tramadol 50 mg tablet 50 mg PO DAILY Qty: 30 RF: 4 furosemide 40 mg tablet 40 mg PO DAILY Qty: 90 RF: 3 sertraline 25 mg tablet 25 mg PO DAILY RF: 0 cholecalciferol (vitamin D3) [Vitamin D3] 2,000 UNIT capsule 2,000 unit PO DAILY RF: 0 meclizine 25 MG tablet 0.5 - 1 tab PO TID PRNQty: 30 RF: 2 isosorbide mononitrate 30 mg tablet extended release 24 hr 30 mg PO DAILY Qty: 90 RF: 4 ropinirole 2 mg tablet 2 mg PO QHS Qty: 90 RF: 2 pantoprazole 40 mg tablet,delayed release (DR/EC) 40 mg PO BID Qty: 60 RF: 1 levothyroxine 50 mcg tablet 50 mcg PO DAILY Qty: 30 RF: 2 aspirin [Aspir-81] 81 MG tablet,delayed release (DR/EC) 81 mg PO DAILY RF: 0 colchicine 0.6 mg tablet 0.6 mg PO BID RF: 0 Discontinued meloxicam 15 mg tablet 15 mg PO DAILY Qty: 30 RF: 2 Hold Instructions: Home Medication placed on hold at Doctor's office Discharge Instructions Instructions: Diet for Stomach Ulcers and Gastritis (ED), Gastritis (DC), Hiatal Hernia (DC) Additional Instructions: Findings: mild inflammation of the stomach and esophagus Small Hiatal Hernia Follow up: 2 weeks Please call if you develop: fevers >101.5 Nausea or Vomiting Abdominal pain that is not transient DAY SURGERY UNIT POST ENDOSCOPY INSTRUCTIONS 1. Because there will be medication in your system for the next 24 hours, you may feel a little sleepy. Your coordination will be affected. Therefore: a. Do not drive or operate dangerous equipment for 24 hours. b. Do not drink alcohol beverages for 24 hours (not even beer). c. Plan to go home and rest for the day. 2. Generally there are no restrictions on your activity after a day or so has gone by, but you may feel a bit fatigued for a few days. 3 After you arrive home you may have a light meal and return to a normal diet as you can tolerate it without feeling sick to your stomach. 4. After surgery, you may feel pain or discomfort. This should be only transient, but if it persists please contact your doctor. 5. If there are any questions regarding the findings of your procedure, please feel free to contact your doctor. 6. If you are unable to contact your doctor with a problem, contact the hospital at [phone]. 7. Continue all your regular medications unless directed otherwise. I understand the above instructions and have no questions. Signature of Patient or Responsible Adult Escort Date/Time Name of Responsible Adult Escort Signature of Nurse Date/Time Referrals: Therese Smith MD [ [facility] STAFF PHYSICIAN] - Activity:: Activity as Tolerated Diet:: low acid diet Discharge Orders Discharge Orders: Discharge Order (Routine); Ordered 01/22/20 Ordered By: Therese Smith
[2020-01-22 06:39] VITALS: BP 124/70; PULSE 66; RESP 16; TEMP 36.5; O2SAT 95
[2020-01-22] MEDS: Lactated Ringers 1,000 ML 80 ML IV (07:05)
--- NOTE | 2020-01-22 07:31 | STOM_PTH ---
PATIENT: Fe Ibanez LOC: [facility] U#:[id number] AGE/SX: 74/F ROOM: RE01/22/[address]: Therese Smith MD : 1945 BED: DIS: 01/22/2020 SPEC #: [id number] RECD: 01/22/20 12:32 STATUS: DEMIAN REQ #: [id number] MICHAEL: 01/22/20 07:[address]: Therese Smith DEPT: Surgical Specimen RECD BY: Kassy Gilmore ENTERED: 01/22/20 12:35 SP TYPE: STOMACH OTHR DR: Loida Duarte MD Tissues: 1 - BIOPSY BOWEL 2 - STOMACH BIOPSY 3 - STOMACH BIOPSY 4 - ESOPHAGUS BIOPSY Procedures: GROSS AND MICRO LEVEL 4 IMMUNOPEROXIDASE STAIN Comments: [id number]
[2020-01-22 08:16] VITALS: BP 105/67; PULSE 61; RESP 16; TEMP 36.3; O2SAT 96
== END 2020-01-22 09:23 | disposition home or self-care (01) ==
PROVIDERS: PCP Family Medicine; Visit Provider Surgery
PROC: 0DJ68ZZ Inspection of Stomach, Via Natural or Artificial Opening Endoscopic (ICD-10-PCS; CPT 43235; principal; 2020-01-22 07:30)
DX: K21.9 Gastro-esophageal reflux disease without esophagitis (principal); K31.7 Polyp of stomach and duodenum
CPT/HCPCS: 43239; 88305; 88361; J2001

== ENCOUNTER → 2020-02-04 10:23 | Outpatient (BNVA) | payer MEDICARE, SELFPAY | PROVIDERS: PCP Family Medicine; Referring Provider Family Medicine; Visit Provider Surgery | DX: K21.9 Gastro-esophageal reflux disease without esophagitis (principal); K29.50 Unspecified chronic gastritis without bleeding | CPT/HCPCS: 99212; 99213 ==

== ENCOUNTER → 2020-03-23 13:56 | Outpatient (BNVA) | payer MEDICARE, SELFPAY | PROVIDERS: PCP Family Medicine; Referring Provider Family Medicine; Visit Provider Student in an Organized Health Care Education/Training Program | DX: M17.12 Unilateral primary osteoarthritis, left knee (principal); M17.11 Unilateral primary osteoarthritis, right knee; R22.31 Localized swelling, mass and lump, right upper limb | CPT/HCPCS: 20610; 99213; J1040 ==

== ENCOUNTER 2020-03-25 02:34 | Outpatient (CLI) | payer MEDICARE, SELFPAY ==
[2020-03-31 09:50] LABS: COVID-19 RT-PCR UVMMC Result Negative (Negative)
== END 2020-03-25 02:54 ==
PROVIDERS: PCP Family Medicine; Visit Provider Family Medicine
DX: Z20.828 Contact with and (suspected) exposure to other viral communicable diseases (principal)
CPT/HCPCS: U0003

== ENCOUNTER 2020-04-21 02:05 | Outpatient (CLI) | payer MEDICARE, SELFPAY ==
[2020-04-21 13:01] LABS: TSH 3.04 uIU/mL (0.36-3.74)
== END 2020-04-21 02:25 ==
PROVIDERS: PCP Family Medicine; Visit Provider Family Medicine
DX: E03.9 Hypothyroidism, unspecified (principal)
CPT/HCPCS: 36415; 84443

== ENCOUNTER 2020-05-04 15:11 | Outpatient (CLI) | payer MEDICARE, SELFPAY ==
--- NOTE | 2020-05-04 14:45 | DI.RAD_ITS ---
EXAM: XR WRIST LT COMPLETE CLINICAL HISTORY: L wrist pain. TECHNIQUE: 2D digital imaging was performed. COMPARISON: No exams were available for comparison FINDINGS: Three views reveal the presence of a prosthesis at the articulation between the thumb metacarpal and distal carpal row, laterally.. The prosthesis is long stem into the level of the junction of the yuval physis and neck region of the thumb metacarpal. There is mild uniform lucency around the diaphysis c omponent, possibly significant. No radiographic evidence of osteomyelitis. There is also a 4.4 by 4 .3 millimeter calcification just lateral to the prostheSis component. Proximal carpal row appears un remarkable. Distal radius and ulna appear unremarkable. No significant ulnar variance. No osseous lesions. IMPRESSION: DATA REPOSITORY: RADIATION DOSE DELIVERED:
== END 2020-05-04 15:31 ==
PROVIDERS: PCP Family Medicine; Referring Provider Family Medicine; Visit Provider Student in an Organized Health Care Education/Training Program
DX: M25.532 Pain in left wrist (principal); Z96.692 Finger-joint replacement of left hand; G56.02 Carpal tunnel syndrome, left upper limb; R22.32 Localized swelling, mass and lump, left upper limb
CPT/HCPCS: 99214; 73110

== ENCOUNTER 2020-05-15 02:14 | Outpatient (CLI) | payer MEDICARE, SELFPAY ==
[2020-05-15 10:15] LABS: CREATININE 1.1 mg/dL (0.55-1.02); Estimated GFR 48.55 (mL/min/1.73m2)
[2020-05-15] MEDS: Normal Saline Flush 10 ML SYR IVP (10:20)
[2020-05-15] MEDS: Gadoterate meglumine 20 ML VIAL IVP (10:21)
--- NOTE | 2020-05-15 11:15 | DI.MRI_ITS ---
EXAM: MR UPPER JOINT LT WO/W CLINICAL HISTORY: LT WRIST PAIN, MASS LT WRIST,M25.532,R22.32. TECHNIQUE: Multiplanar multisequence MRI was performed. COMPARISON: None. FINDINGS: The examination is limited due to patient motion artifact. BONES: There is no fracture or contusion pattern. Postsurgical changes of a joint prosthesis at the 1 st [facility] joint is noted. JOINTS: The radiocarpal joint is unremarkable. The carpal joints are unremarkable. TENDONS: Flexors: Unremarkable. Extensors: Unremarkable. MUSCLES: Unremarkable. MEDIAN NERVE: Unremarkable on this noncontrast examination. ULNAR NERVE: Unremarkable on this noncontrast examination. SOFT TISSUES: There is a well-circumscribed fat density lesion on the dorsal medial aspect of the wri st in the subcutaneous tissues measuring 3.0 cm craniocaudad by 1.1 cm AP x 2.1 cm transverse. There is no enhancement following contrast administration. The finding is most consistent with a lipoma. There appears to be a similar lesion at the anterior medial aspect of the wrist measuring 1.1 cm cc by 0.6 cm AP x 2.1 cm transverse also consistent with a lipoma. There is a 3rd lesion lateral to the radius in the subcutaneous tissues. It measures 1.1 craniocaudad by 1.1 AP by 0.9 transverse cm. I t is fat density on all pulse sequences. Following contrast administration there does appear there d oes appear to be septal enhancement and enhancement of the periphery. Due to its enhancement pattern , a liposarcoma cannot be excluded. There is no involvement of the underlying bone tendons or muscle s. LIGAMENTS: Unremarkable. TRIANGULAR FIBROCARTILAGE: Unremarkable. OTHER: IMPRESSION: 1. Two fat density nonenhancing lesions, 1 in the dorsal medial soft tissues and 1 in the anterior me dial soft tissues, most consistent with lipomas. 2. Enhancing fat density lesion in the medial soft tissues measuring 1.1 x 1.1 x 0.9 cm. Due to it i ts enhancement pattern, a liposarcoma cannot be excluded. DATA REPOSITORY:
== END 2020-05-15 02:15 | disposition home or self-care (01) ==
LOC: DI 02:14
PROVIDERS: PCP Family Medicine; Visit Provider Student in an Organized Health Care Education/Training Program
DX: R22.32 Localized swelling, mass and lump, left upper limb (principal); M25.532 Pain in left wrist
CPT/HCPCS: 73223; 82565; 82575

== ENCOUNTER → 2020-06-16 11:32 | Outpatient (BNVA) | payer MEDICARE, SELFPAY | PROVIDERS: PCP Family Medicine; Referring Provider Student in an Organized Health Care Education/Training Program; Visit Provider Psychiatry & Neurology Neurology | DX: R20.2 Paresthesia of skin (principal) | CPT/HCPCS: 95909; 99213 ==

== ENCOUNTER 2020-08-20 02:05 | Outpatient (CLI) | payer MEDICARE, SELFPAY ==
[2020-08-20 13:03] LABS: ALT 42 U/L (14-59); AST 21 U/L (15-37); Albumin 3.7 g/dL (3.4-5.0); Alkaline Phosphatase 67 U/L (46-116); Anion Gap 7.6 mmol/L (3-11); BUN 15 mg/dL (7-18); Bilirubin, Total 0.4 mg/dL (0.2-1.0); CO2 30.4 mmol/L (21.0-32.0); CREATININE 1.1 mg/dL (0.55-1.02); Calcium 9.3 mg/dL (8.5-10.1); Chloride 106 mmol/L (98-107); Estimated GFR 48.55 (mL/min/1.73m2); Glucose 103 mg/dL (74-106); Potassium 4.2 mmol/L (3.5-5.1); Sodium 144 mmol/L (136-145); TSH (W/Ref FT4) 1.91 uIU/mL (0.36-3.74); Total Protein 6.9 g/dL (6.4-8.2)
== END 2020-08-20 02:06 | disposition home or self-care (01) ==
LOC: LOS 02:05
DX: E03.9 Hypothyroidism, unspecified (principal)
CPT/HCPCS: 36415; 80053; 84443

== ENCOUNTER 2020-11-13 10:40 | Outpatient (CLI) | payer MEDICARE, SELFPAY ==
--- NOTE | 2020-11-13 10:16 | DI.RAD_ITS ---
Exam(s) XR ANKLE LT COMPLETE EXAM: XR ANKLE LT COMPLETE CLINICAL HISTORY: left ankle pain TECHNIQUE: COMPARISON: CR LEFT ANKLE COMPLETE from 01/06/2014 FINDINGS: Three views were obtained. The ankle mortise appears fairly well maintained. Mild marginal osteophy te formation noted involving the tibiotalar joint and talofibular joint. No other bony or soft tissu e abnormality seen. IMPRESSION: Mild DJD tibiotalar joint. RADIATION DOSE DELIVERED: Total DLP
== END 2020-11-13 10:41 | disposition home or self-care (01) ==
LOC: DIORS 10:41
PROVIDERS: Visit Provider Student in an Organized Health Care Education/Training Program
DX: M25.572 Pain in left ankle and joints of left foot (principal); R22.32 Localized swelling, mass and lump, left upper limb
CPT/HCPCS: 99213; 73610

== ENCOUNTER 2020-11-23 02:04 | Outpatient (CLI) | payer MEDICARE, SELFPAY ==
--- NOTE | 2020-11-23 11:55 | DI.MRI_ITS ---
Exam(s) MR LOWER JOINT LT WO EXAM: MR LOWER JOINT LT WO CLINICAL HISTORY: Evaluate subtalar joint calcaneus,LT HEEL PAIN,M79.672 TECHNIQUE: Multiplanar multisequence MRI was performed without intravenous contrast. COMPARISON: No exams were available for comparison FINDINGS: SKIN: No evidence of ulcer nor subcutaneous tract. However, there is subcutaneous edema over both si antonio of the ankle evident. BONES/JOINTS: No evidence of fracture nor bone contusion. There is a small ankle joint effusion. Th e talar dome appears unremarkable. The ankle mortise is maintained. There is no evidence of para-ar ticular ganglion.There is no evidence of osseous tarsal coalition. Mild increased signal in the dist al calcaneus is noted. LIGAMENTS: The anterior and posterior tibiofibular and calcaneofibular ligaments are intact. The ante rior and posterior talofibular ligaments are intact. The deltoid ligament is intact. SINUS TARSI: There is no effacement of the normal fat signal in this space. Interosseous ligament is intact. There is no evidence of sinus tarsi ganglion cyst. ANTEROLATERAL GUTTER:Some fluid is seen in this region but this is from the ankle joint effusion. MUSCULOTENDINOUS STRUCTURES: Achilles tendon: Abnormal. There is fusiform thickening of the Achilles tendon which exhibits AP braulio surement of 8-9 millimeters and also exhibits intrasubstance signal abnormality consistent with parti al intrasubstance tearing. There is no full-thickness tear of this structure. There is no fluid in the pre Achilles-retrocalcaneal bursa. Mild increased signal in the pre Achilles fat pad noted. Plantar fascia: Abnormal. There is increased signal at the attachment of the dominant medial band to the inferior calcaneus consistent with plantar fasciitis-mild tearing. There is a small inferior ca lcaneal spur. No abnormal intraosseous signal. No evidence of fat pad fluid collection. Anterior Extensor tendons: Unremarkable. Medial Tendons: Posterior Tibialis: Mild increased signal at its attachment to the navicular tuberosity. No abnormal intraosseous signal within the navicular tuberosity itself. Also no evidence of sesamoid bone withi n the distal tendon at this level. Flexor Digitorum longus: Unremarkable. No tear or tenosynovitis evident. Flexor Hallicus longus: Unremarkable. No tear or tenosynovitis evident. Lateral Tendons: Peroneus longus: Unremarkable. No tear nor tenosynovitis evident. Peroneus brevis:Unremarkable. No tear nor tenosynovitis evident. SUBTALAR JOINT: APPEARS UNREMARKABLE. NO DEGENERATIVE SUBARTICULAR CYSTS. SINUS TARSI APPEARS UNREM ARKABLE. CALCANEOCUBOID JOINT: This articulation exhibits mild osteoarthritic degenerative changes. No joint effusion or para-articular ganglion noted. OTHER FINDINGS: Main Lisfranc ligament appears intact IMPRESSION: 1. Main findings here are related to the Achilles tendon and plantar fascia. There is thickening and signal abnormality in the Achilles tendon consistent with chronic tendinosis of the Achilles with so me intrasubstance high signal consistent with superimposed tendinitis and mild intrasubstance tearing . There is, however, no high-grade tear of this structure. 2. Abnormal signal in the posterior aspect of the medial band of the plantar fascia with slight thick ening, consistent with plantar fasciitis. 3. Subtalar joint appears unremarkable (as per request). Some mild degenerative changes noted in the calcaneocuboid joint. DATA REPOSITORY:
== END 2020-11-23 02:24 ==
PROVIDERS: PCP Student in an Organized Health Care Education/Training Program; Visit Provider Student in an Organized Health Care Education/Training Program
DX: M19.072 Primary osteoarthritis, left ankle and foot (principal)
CPT/HCPCS: 73721

== ENCOUNTER → 2020-12-18 09:54 | Outpatient (BNVA) | payer MEDICARE, SELFPAY | PROVIDERS: PCP Student in an Organized Health Care Education/Training Program; Visit Provider Student in an Organized Health Care Education/Training Program | DX: M17.12 Unilateral primary osteoarthritis, left knee (principal); M17.11 Unilateral primary osteoarthritis, right knee; M72.2 Plantar fascial fibromatosis | CPT/HCPCS: 20610; J1040 ==

== ENCOUNTER 2020-12-28 01:30 | Outpatient (CLI) | payer MEDICARE, SELFPAY ==
--- NOTE | 2020-12-28 08:15 | DI.CTLCSR_ITS ---
Exam(s) CT CHEST LUNG CANCER SCREEN EXAM: CT CHEST LUNG CANCER SCREEN CLINICAL HISTORY: Screening for lung cancer, former smoker, F17.210. TECHNIQUE: Imaging Protocol: Low Dose Technique CONTRAST MATERIAL: None COMPARISON: CT CHEST WITH CONTRAST from 07/07/2012 FINDINGS: CHEST: LUNGS:. Benign-appearing increased markings are noted in the anterior segment of the right upper lobe , unchanged. Also mild subpleural increased markings in the lateral segment of the right middle lobe . There is a 4 millimeter pleural-based nodule posteriorly over the right lower lobe which does not appear to have been present in 2013. No pleural effusion. Decreased left hemithoracic volume is again noted but the previously present pleural thickening and i nfiltrate has decreased when compared to 2013. Mild benign-appearing increased markings and atelecta sis are noted in the left lower lobe. No pleural effusions. MEDIASTINUM: There is no obvious hilar nor mediastinal adenopathy. Prominent retrocardiac hiatal her khloe noted, this 7 cm wide by 5 cm AP. Larger than previous. CARDIAC: Heart size is normal. There is no pericardial effusion.Caliber of the thoracic aorta is wit hin normal limits. OTHER: OSSEOUS: No significant osseous lesions.. IMPRESSION: 1. There is a 4 millimeter pleural base nodule in the right lower lobe which was not evident on the 2 [address]13 study. Follow-up CT scan 6 months recommended. 2. Other findings as above. No pleural effusions. No obvious adenopathy. Prominent retrocardiac hi atal hernia, larger than previous. 3. Lung RADS Cat 3 - Probably Benign: Probably benign finding(s) - short term follow-up suggested; in clude nodules with a low likelihood of becoming a clinically active cancer. Lung-RADS 1.0 CATEGORIES: Category 0 - Prior chest CT exam(s) being located for comparison. Category 1 - Annual screening in 12 months. No nodules or definitely benign nodules. Category 2 - Annual screening in 12 months. Benign appearance. Nodules with low likelihood of becomin g active cancer. Category 3 - 6-month follow-up. Probably benign. Short-term follow-up suggested. Nodules with low lik elihood of becoming active cancer. Category 4A - 3-month follow-up and CT/PET if >8 mm in size. Suspicious finding. Findings which requi re additional testing. Category 4B - Findings which require additional testing and tissue sampling. Modifier S- Potentially clinically significant findings (non lung cancer) RADIATION DOSE DELIVERED: 85.74mGy.cm Total DLP CTDIvol DATA REPOSITORY: All CT scans at this facility are submitted to the National Radiology Data Registry (NRDR) Dose Index Registry (DIR) with the [employer] ([employer]). RADIATION OPTIMIZATION: All CT scans at this facility use at least one of these dose optimization te chniques: automated exposure control; mA and/or kV adjustment per patient size (includes targeted exa ms where dose is matched to clinical indication); or iterative reconstruction.
== END 2020-12-28 01:50 ==
PROVIDERS: PCP Student in an Organized Health Care Education/Training Program; Visit Provider Student in an Organized Health Care Education/Training Program
DX: F17.210 Nicotine dependence, cigarettes, uncomplicated (principal); Z12.2 Encounter for screening for malignant neoplasm of respiratory organs; R91.1 Solitary pulmonary nodule; K44.9 Diaphragmatic hernia without obstruction or gangrene
CPT/HCPCS: 71271

== ENCOUNTER 2021-01-11 03:01 | Outpatient (CLI) | payer MEDICARE, SELFPAY ==
[2021-01-11 11:00] LABS: Source Nasal/Nares
[2021-01-11 15:41] LABS: COVID-19 PCR Negative (Negative)
== END 2021-01-11 03:02 | disposition home or self-care (01) ==
PROVIDERS: PCP Student in an Organized Health Care Education/Training Program; Visit Provider Student in an Organized Health Care Education/Training Program
DX: Z20.822 Contact with and (suspected) exposure to COVID-19 (principal); Z01.818 Encounter for other preprocedural examination
CPT/HCPCS: 87635

== ENCOUNTER 2021-01-12 11:22 | Day surgery (SDC) | payer MEDICARE, SELFPAY ==
--- NOTE | 2021-01-12 10:13 | W.PM.DSUDISC ---
Documented by User: Cyndi Gillis 01/12/21 10:17 Discharge Plan Disposition Patient Disposition: HOME Condition: Good Discharge Details Reason For Visit: Left wrist cyst Attending Provider: Guanako Bartholomew Primary Care Provider: Mariajose Cuenca Home Meds and New Rx's Prescriptions: New acetaminophen 500 mg tablet 1,000 mg PO Q8H PRN (Reason: pain) Qty: 60 RF: 3 ibuprofen 600 mg tablet 600 mg PO TID PRN (Reason: pain) Qty: 30 RF: 3 Continued isosorbide mononitrate 30 mg tablet extended release 24 hr 30 mg PO DAILY Qty: 90 RF: 4 triamcinolone acetonide 0.5 % ointment 1 applic TP BID Qty: 15 RF: 4 losartan 25 mg tablet 25 mg PO DAILY Qty: 90 RF: 3 nitroglycerin 0.4 mg tablet, sublingual 0.4 mg sublingual Q5M PRN (Reason: chest pain) Qty: 30 RF: 1 albuterol sulfate [ProAir HFA] 90 mcg/actuation HFA aerosol inhaler 2 puff inhalation Q6H PRN (Reason: shortness of breath or wheezing) Qty: 8.5 RF: 0 halobetasol propionate 0.05 % ointment 1 applic topical BID Qty: 50 RF: 4 cholecalciferol (vitamin D3) [Vitamin D3] 2,000 UNIT capsule 2,000 unit PO DAILY RF: 0 sertraline 25 mg tablet 25 mg PO DAILY Qty: 90 RF: 4 meclizine 25 mg tablet 12.5 - 25 mg PO TID PRN (Reason: dizziness) Qty: 30 RF: 4 levothyroxine 50 mcg tablet 50 mcg PO DAILY Qty: 90 RF: 1 ropinirole 2 mg tablet 2 mg PO QHS Qty: 90 RF: 2 tramadol 50 mg tablet 50 mg PO BID PRN (Reason: pain) Qty: 60 RF: 1 pantoprazole 40 mg tablet,delayed release (DR/EC) 40 mg PO BID Qty: 60 RF: 0 sucralfate 100 mg/mL suspension 10 ml PO QACHS Qty: 420 RF: 1 famotidine 40 mg tablet 40 mg PO QHS Qty: 30 RF: 1 aspirin [Aspir-81] 81 MG tablet,delayed release (DR/EC) 81 mg PO DAILY RF: 0 Discontinued meloxicam 15 mg tablet 15 mg PO DAILY MDD 15mg Qty: 90 RF: 3 Discharge Instructions Additional Instructions: Cyst Excision Discharge Instructions Activity: You may use your fingers for light activity. You should limit any excessive motion or forceful gripping until the sutures have been removed. Dressings: You should keep the initial surgical dressing in place for at least 3 days. You may remove your dressings and get the wound wet after 3 days. You should keep the dressings and the wound clean at all times. You may keep the initial dressing in place until your follow-up but keep the wound covered with light gauze until the sutures are removed. Medications: - You should take Tylenol and Ibuprofen around the clock as prescribed or per chemical dependency professional's recommendations. Follow-up: 7-10 days for wound check and suture removal. Referrals: Guanako Bartholomew MD [ [facility] STAFF PHYSICIAN] - Activity:: Elevate Remove Dressings/Wound Care:: 72 hours Shower/Bathe:: 72 hours Diet:: As Tolerated Discharge Orders Discharge Orders: Discharge Order (Routine); Ordered 01/12/21 Ordered By: Cyndi Gillis DS: Diagnosis Discharge Diagnosis (1) Mass of left wrist: Status: Acute Documented by User: Guanako Bartholomew MD 01/12/21 12:15 Discharge Plan Disposition Patient Disposition: HOME Condition: Good Discharge Details Reason For Visit: Left wrist cyst Attending Provider: Guanako Bartholomew Primary Care Provider: Mariajose Cuenca Home Meds and New Rx's Prescriptions: New acetaminophen 500 mg tablet 1,000 mg PO Q8H PRN (Reason: pain) Qty: 60 RF: 3 ibuprofen 600 mg tablet 600 mg PO TID PRN (Reason: pain) Qty: 30 RF: 3 Continued isosorbide mononitrate 30 mg tablet extended release 24 hr 30 mg PO DAILY Qty: 90 RF: 4 triamcinolone acetonide 0.5 % ointment 1 applic TP BID Qty: 15 RF: 4 losartan 25 mg tablet 25 mg PO DAILY Qty: 90 RF: 3 nitroglycerin 0.4 mg tablet, sublingual 0.4 mg sublingual Q5M PRN (Reason: chest pain) Qty: 30 RF: 1 albuterol sulfate [ProAir HFA] 90 mcg/actuation HFA aerosol inhaler 2 puff inhalation Q6H PRN (Reason: shortness of breath or wheezing) Qty: 8.5 RF: 0 halobetasol propionate 0.05 % ointment 1 applic topical BID Qty: 50 RF: 4 cholecalciferol (vitamin D3) [Vitamin D3] 2,000 UNIT capsule 2,000 unit PO DAILY RF: 0 sertraline 25 mg tablet 25 mg PO DAILY Qty: 90 RF: 4 meclizine 25 mg tablet 12.5 - 25 mg PO TID PRN (Reason: dizziness) Qty: 30 RF: 4 levothyroxine 50 mcg tablet 50 mcg PO DAILY Qty: 90 RF: 1 ropinirole 2 mg tablet 2 mg PO QHS Qty: 90 RF: 2 tramadol 50 mg tablet 50 mg PO BID PRN (Reason: pain) Qty: 60 RF: 1 pantoprazole 40 mg tablet,delayed release (DR/EC) 40 mg PO BID Qty: 60 RF: 0 sucralfate 100 mg/mL suspension 10 ml PO QACHS Qty: 420 RF: 1 famotidine 40 mg tablet 40 mg PO QHS Qty: 30 RF: 1 aspirin [Aspir-81] 81 MG tablet,delayed release (DR/EC) 81 mg PO DAILY RF: 0 Discontinued meloxicam 15 mg tablet 15 mg PO DAILY MDD 15mg Qty: 90 RF: 3 Discharge Instructions Additional Instructions: Cyst Excision Discharge Instructions Activity: You may use your fingers for light activity. You should limit any excessive motion or forceful gripping until the sutures have been removed. Dressings: You should keep the initial surgical dressing in place for at least 3 days. You may remove your dressings and get the wound wet after 3 days. You should keep the dressings and the wound clean at all times. You may keep the initial dressing in place until your follow-up but keep the wound covered with light gauze until the sutures are removed. Medications: - You should take Tylenol and Ibuprofen around the clock as prescribed or per chemical dependency professional's recommendations. Follow-up: 7-10 days for wound check and suture removal. Referrals: Guanako Bartholomew MD [ [facility] STAFF PHYSICIAN] - Activity:: Elevate Remove Dressings/Wound Care:: 72 hours Shower/Bathe:: 72 hours Diet:: As Tolerated Discharge Orders Discharge Orders: Discharge Order (Routine); Ordered 01/12/21 Ordered By: Cyndi Gillis
[2021-01-12 11:46] VITALS: BP 121/73; PULSE 75; RESP 18; TEMP 36.1; O2SAT 96
[2021-01-12] MEDS: Lactated Ringers 1,000 ML 80 ML IV (12:24)
--- NOTE | 2021-01-12 13:02 | W.PREOPHP ---
Date of service: 01/12/21 Time of Service: 13:02 Assessment and Plan Assessment and plan (1) Ganglion cyst of dorsum of left wrist: Status: Acute Assessment and plan: Fe is a 75-year-old cyst left wrist. She also has notable arthritis at this point. The cyst separately. I discussed that it would be difficult excision. Discussed the risk to include bleeding, infection, pain, stiffness, recurrent, damage to nerves and vessels. Despite these, she elects to proceed. History of Present Illness History of Present Illness Chief Complaint: Left dorsal wrist cyst Narrative: Fe is a 25-year-old who has a known cyst about the left wrist. She also has significant arthritis about the left wrist. The cyst has been bothering her and she therefore wants it removed. She has been evaluated by a hand surgeon for second opinion desires to have this left wrist cyst removed. Review of Systems All systems reviewed & are unremarkable except as noted in HPI and below PFSH Medical History Abnormal finding on imaging CT (Lung Ca Screen), 12/2020: Increased markings, 4mm RLL nodule, Dec volume, widened hiatal hernia. Achilles tendonitis Left, with plantar fasciitis Acute nonintractable headache BPPV (benign paroxysmal positional vertigo) Chronic renal insufficiency, stage II (mild) Mild-Mod, GFR 48, 08/2020 Colon cancer screening Diastolic dysfunction Per Cardio (Chris), 09/2018 ... June 29, 2010: LVEDP 23 mm mercury. January 31, 2000. LVEDP 7 mm mercury, rising to 21 mm mercury after 1 L normal saline over 10 minutes. Wedge pressure 19 mm mercury .. mild pulmonary hypertension on right heart catheterization (40-45 MmHG). Hx recurrent pericarditis/ pericardial effusion, Sjogren's syndrome. Fatigue Femoroacetabular impingement of both hips Former smoker Quit 05/2009 GERD (gastroesophageal reflux disease) Herpes simplex Hiatal hernia Widened retrocardiac hiatal hernia, 7cm x 5cm AP. Larger than 2012..Hx GERD, with possible new symptoms (12/2020). Surgery? Hyperlipidemia (07/23/12) Hypothyroidism Increased BMI (body mass index) (05/11/17) Lichen sclerosus et atrophicus Halbetasol per [facility], 01/2021. (2019. Patient advised to begin topical steroid to vulva) Localized osteoarthritis of right knee Low back pain Lung nodule < 6cm on CT 4mm, per 12/2020 CT (new since 2012).. 6 mo FU [ ] Neoplasm of uncertain behavior of skin (05/15/14) Left forehead, status post excision with primary closure. Seborrheic keratosis by final pathology. 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 Perez on 01/06/20 Pneumonia, organism unspecified Post-nasal drip Screening mammography declined Shortness of breath Sialoadenitis (10/31/13) Sjogren's disease Skin lesion of neck Snoring Stopped smoking with greater than 40 pack year history Tobacco dependence Tubular adenoma of colon (04/25/16) Unilateral primary osteoarthritis, left knee Surgical History Abdominal hysterectomy ENDOMETRIOSIS; ONE OVARY REMAINS Colonoscopy - IV Sedation (04/25/16) History of ankle surgery hardware present History of bunionectomy of both great toes History of carpal tunnel surgery of left wrist History of colpocleisis History of suburethral sling procedure 12/18/18 Vaginectomy/colpocleisis with Posterior colporrhapy and transobturator mid urethral sling at [facility] [place] Hx of appendectomy Hx of thumb surgery Prolapse of female pelvic organs Stage III post hysterectomy vaginal prolapse with stress incontinence. Rx at [facility] [place] 12/18/18. Status post abdominal hysterectomy Status post tonsillectomy 2018? Tonsillectomy Family History Mother , AGE 91 Alzheimer disease Father , AGE 86 Essential hypertension AAA (abdominal aortic aneurysm) Alzheimer disease Heart disease Hyperlipidemia Bladder cancer Sister No problems noted. Maternal Grandfather , SHOT AGE 35 No problems noted. Paternal Grandfather , AGE 93 Heart disease Maternal Grandmother , AGE 64 Uterine cancer Paternal Grandmother , AGE 73 AAA (abdominal aortic aneurysm) Stroke Son No problems noted. Son Asthma Son No problems noted. Social History Smoking/Tobacco Use Status: Former Tobacco Use Tobacco: How many years used: 45 Smoking risk assessment performed?: Yes Alcohol Intake: current Alcohol Intake frequency: holidays/special occasions only Alcohol type: beer and wine Drug use: Never Substance use type: does not use Counseling given: No Counseling provided: other Adopted: No Caregiver/Support person: No Foster care: No Household members: none Housing: house Number of Children: 3 number of grandchildren: 6 Communication Needs: None Education Level: college Details: Associate's Degree Do you need help understanding health information?: Never 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 on [employer] Pets and animals: No Sexually active: No Do you think of yourself as: straight/heterosexual Current gender identity: female What is your relationship status?: How often do you talk on the phone with friends or family?: three or more times per week How often do you get together with friends or relatives?: twice per week Do you belong to any clubs or organized social groups?: yes Panel score (0-1 are the most socially isolated patients): 2 What type of physical activity do you participate in: weight lifting and occasional exercise Duration: > 90 minutes/day Frequency: daily Any/Hoahaoism: Zoroastrianism Special any needs: No Seatbelt use: always Helmet use: No Drive intox or ride w/intox ups driver: No Do you feel safe at home: Yes Additional Social history: lives alone Female Reproductive History Menstrual Menopause type: surgical History History 3 Para Hx # Term Pregnancies 3 Multiple births Hx # Pregnancies Ectopic pregnancies AB induced Hx Number of Living Children AB spontaneous Meds Allergies and Home Medications Allergies Allergy/AdvReac Type Severity Reaction Status Date / Time codeine Allergy Severe Anaphylaxsi Verified 01/12/21 11:59 s morphine Allergy Severe Anaphylaxsi Verified 01/12/21 11:59 s oxycodone Allergy Severe Anaphylaxsi Verified 01/12/21 11:59 s amoxicillin [From Augmentin] AdvReac Intermediate Hives Verified 01/12/21 11:59 Swelling clavulanic acid AdvReac Intermediate Hives Verified 01/12/21 11:59 [From Augmentin] Swelling lisinopril AdvReac Intermediate cough Verified 01/12/21 11:59 pentazocine AdvReac Intermediate Other (See Verified 01/12/21 11:59 Comment) diphenhydramine AdvReac Mild Benadryl Verified 01/12/21 11:59 [From Benadryl] and Tylenol PM poorly tolerated, wound up. varenicline AdvReac Mild Other (See Verified 01/12/21 11:59 Comment) lactose AdvReac Diarrhea Verified 01/12/21 11:59 Home Medications Medication Instructions Recorded Confirmed Type cholecalciferol (vitamin D3) 2,000 unit PO DAILY 07/01/15 01/12/21 History [Vitamin D3] aspirin [Aspir-81] 81 mg PO DAILY 01/12/17 01/12/21 History sertraline 25 mg tablet 25 mg PO DAILY #90 tab 05/14/20 01/12/21 Rx meclizine 25 mg tablet 12.5 - 25 mg PO TID PRN #30 tab 06/16/20 01/12/21 Rx levothyroxine 50 mcg tablet 50 mcg PO DAILY #90 tab 07/13/20 01/12/21 Rx ropinirole 2 mg tablet 2 mg PO QHS #90 tab 07/20/20 01/12/21 Rx isosorbide mononitrate 30 mg 30 mg PO DAILY #90 tab-cap 08/25/20 01/12/21 Rx tablet,extended release 24 hr triamcinolone acetonide 0.5 % 1 applic TP BID #15 gm 08/25/20 01/12/21 Rx topical ointment tramadol 50 mg tablet 50 mg PO BID PRN #60 tab 12/05/20 01/12/21 Rx losartan 25 mg tablet 25 mg PO DAILY #90 tab 12/11/20 01/12/21 Rx nitroglycerin 0.4 mg sublingual 0.4 mg SUBLINGUAL Q5M PRN #30 tab 12/12/20 01/12/21 Rx tablet pantoprazole 40 mg tablet,delayed 40 mg PO BID #60 tab 01/04/21 01/12/21 Rx release halobetasol propionate 0.05 % 1 applic TOPICAL BID #50 g 01/05/21 01/12/21 Rx topical ointment albuterol sulfate 90 mcg/actuation 2 puff INHALATION Q6H PRN #8.5 g 01/11/21 01/11/21 Rx aerosol inhaler famotidine 40 mg tablet 40 mg PO QHS #30 tab 01/11/21 01/12/21 Rx sucralfate 100 mg/mL oral 10 ml PO QACHS #420 ml 01/11/21 01/12/21 Rx suspension acetaminophen 1,000 mg PO Q8H PRN #60 tab 01/12/21 Rx ibuprofen 600 mg PO TID PRN #30 tab 01/12/21 Rx Exam Resp Effort & Inspection: normal respiratory effort Auscultation: clear to auscultation bilaterally Cardio Rate: regular rate Rhythm: regular rhythm Results Last Vital Signs Temp 36.1 C L 01/12/21 11:46 Pulse 75 01/12/21 11:46 Resp 18 01/12/21 11:46 BP 121/73 01/12/21 11:46 Pulse Ox 96 01/12/21 11:46
[2021-01-12] MEDS: CLINDAMYCIN 900 MG/50 ML BAG 50 MG IVPB (13:07)
[2021-01-12] MEDS: Sodium Bicarbonate 50 MEQ/50 ML VIAL (13:47)
[2021-01-12 14:04] VITALS: BP 120/67; PULSE 72; RESP 17; TEMP 36.3; O2SAT 96
--- NOTE | 2021-01-12 15:34 | SOFT_PTH ---
PATIENT: eF Ibanez LOC: [facility] U#:[id number] AGE/SX: 75/F ROOM: RE01/12/[address]: Guanako Bartholomew MD : 1945 BED: DIS: 01/12/2021 SPEC #: [id number] RECD: 01/13/21 12:42 STATUS: DEMIAN REQ #: [id number] MICHAEL: 01/12/21 15:[address]: Guanako Bartholomew DEPT: Surgical Specimen RECD BY: Kassy Gilmore ENTERED: 01/13/21 12:43 SP TYPE: SOFT OTHR DR: Mariajose Cuenca DO Tissues: 1 - SOFT TISSUE-CYST(NOT LIPOMA) Procedures: GROSS AND MICRO LEVEL 4 Comments: [id number]
--- NOTE | 2021-01-12 21:54 | W.PM.OP ---
Date of service: 01/12/21 Time of Service: 13:37 Operative Note Operative Note DATE OF PROCEDURE: 01/12/21 PRE-OP DIAGNOSIS: Left Wrist Lipoma and Mass POST-OP DIAGNOSIS: same PROCEDURE: Excisional biopsy of left wrist mass and excision of left wrist lipoma SURGEON: Gaunako Bartholomew ANESTHESIA TYPE: Local By Surgeon Refer to Anesthesia Record ESTIMATED BLOOD LOSS: 5 PATHOLOGY: none sent TOURNIQUET TIME: 0 COMPLICATIONS: None Patient was transported to: PACU Patient's condition: stable Indications: Fe is a 75-year-old have seen for painful left wrist along with left wrist masses. She has been previously evaluated by hand specialist who did not see any benefit and proceeding with treatment of the arthritis itself but did agree with removal of the masses if problematic. Fe continues to be bothered by the size of the mass as well as pain. MRI detected to primary masses which correspond to her symptoms, dorsal wrist and radial wrist. The radial wrist had the appearance of a lipoma but did have some peripheral enhancement in the more dorsal lipoma no peripheral enhancement. Given the still cause her significant discomfort I did offer excisional biopsy of the radial base mass and excision of the dorsal lipoma. I discussed the risks to include bleeding, infection, pain, stiffness, damage to nerve and vessels, recurrence, need for repeat procedures. Despite these risks, she elects to proceed. Findings: There is a 12 mm well-circumscribed lesion over the radial aspect of the wrist buried within significant adiposity. It was easily dissected away from the surrounding tissues with no significant vascularity into or out of the lesion. The outer capsule was left intact and it was sent as a complete specimen to pathology. There was a irregularly shaped lipoma over the dorsum of the wrist which was able to be removed in whole. Procedure Description: Fe was greeted in the preoperative holding area. Identity was confirmed and the correct site was identified and marked. Consent was reviewed the patient and signed. History and physical was updated. The patient to take not to the operating room placed in supine position. All bony prominences were well-padded. The left arm was prepped with ChloraPrep and draped in a standard fashion. The surgical sites were marked on the skin and injected with 1% lidocaine with epinephrine buffered with sodium bicarbonate. Number incisions were planned, 1 over the radial aspect of the wrist and 1 over the dorsal ulnar aspect of the wrist by at least 6 cm. The sites were injected and given time to set up such that the skin was blanched and Fe had adequate anesthesia. Starting with the radial base mass, the skin was incised sharply. Deeper dissection was carried out with tenotomy scissors and careful attention to neurovascular branches in this area. There was significant adiposity seen in this area. Gentle dissection through the adiposity was continued until the symptomatic mass was encountered, identifying his location by palpation. The mass was identified and protected with dissection carried around. There was a well-circumscribed mass with a dense capsule. There is no significant vascularity seen entering or exiting this mass. The surrounding tissue was easily dissected away from the mass and the mass was removed in whole and sent to pathology. The wound was then thoroughly irrigated. The wound was dry. The deep layer was reapproximated with a 3-0 Vicryl. It was then turned to the dorsal wrist. A longitudinal incision was made over the dorsal ulnar aspect of the wrist. Sharp dissection was carried down through the skin. Neurovascular branches were protected and the lipoma was identified. The capsule lipoma was entered and the lipoma was expressed through the wound and with gentle traction the lipoma was pulled out of the distal wrist and any of its connection adhesions were sharply dissected away such that it was removed in whole. There was surrounding adiposity but no other lipoma identified. The wound was then thoroughly irrigated. The deep tissue was closed with a 3-0 Vicryl. The skin of both wounds were closed with a running 4-0 Monocryl followed by skin glue, gauze, and Barrett wrap. At the end the case all counts were correct. Fe was transferred back to the same-day surgery area in a stable condition. There were no noted complications.
--- NOTE | 2021-01-12 21:57 | HPE_ITS ---
Date of service: 01/12/21 Time of Service: 12:28 Assessment and Plan Assessment and plan (1) Mass of left wrist: Status: Acute (2) Lipoma of left upper extremity: Status: Acute Assessment and plan: Fe is a 75-year-old who has symptomatic masses about the left wrist. They both appear to be lipomas. However, the more radial mass does have some peripheral enhancement. I had a long discussion with Fe about treatment options. She did see Dr. Khan at [facility] suggested not treating some of the other issues about the left wrist with focusing on the masses if she feels her symptomatic. Due to convenience, I offered to take care of that appear. Rather than a imaging guided biopsy of the radial left wrist I did offer an excisional biopsy today given that the potential for this to be carcinoma is present and may require secondary procedure. I would also remove the lipoma over the dorsum of the left wrist as well. I reviewed all this with her. She desires these masses to be removed as they impinge motion and cause pain. I discussed the risk of the procedure to include bleeding, infection, pain, stiffness, recurrence, damage to nerves and vessels, need for repeat procedures. Despite these risk, she elects to proceed. History of Present Illness History of Present Illness Chief Complaint: Left Wrist Mass and Lipoma Narrative: Fe is a 75-year-old who I have seen for pain of the left wrist with masses. She has a complex history with persistent numbness and tingling about the left wrist as well as a silicone first CMC implant. MRI was performed which demonstrated what appeared to be a large lipoma over the dorsal aspect of the left wrist with a lipomatous mass about the radial aspect of the wrist with some slight enhancement. She was seen at [facility] who did not recommend any intervention for the first CMC joint or for other arthritis. It was suggested to have the masses removed potential biopsy of the enhancing lipomatous type mass. She contacted my office to see this could be performed locally which I agreed to do. In general, both the radial mass and the dorsal mass cause pain over the radial 1 is worse. She has no skin discoloration. The mass have been present for some time and may be slowly getting worse. She denies any skin changes. She does have some persistent numbness of the thumb, index, and middle finger. No skin discoloration or skin changes. Review of Systems All systems reviewed & are unremarkable except as noted in HPI and below PFSH Medical History Abnormal finding on imaging CT (Lung Ca Screen), 12/2020: Increased markings, 4mm RLL nodule, Dec volume, widened hiatal hernia. Achilles tendonitis Left, with plantar fasciitis Acute nonintractable headache BPPV (benign paroxysmal positional vertigo) Chronic renal insufficiency, stage II (mild) Mild-Mod, GFR 48, 08/2020 Colon cancer screening Diastolic dysfunction Per Cardio (Chris), 09/2018 ... June 29, 2010: LVEDP 23 mm mercury. January 31, 2000. LVEDP 7 mm mercury, rising to 21 mm mercury after 1 L normal saline over 10 minutes. Wedge pressure 19 mm mercury .. mild pulmonary hypertension on right heart catheterization (40-45 MmHG). Hx recurrent pericarditis/ pericardial effusion, Sjogren's syndrome. Fatigue Femoroacetabular impingement of both hips Former smoker Quit 05/2009 GERD (gastroesophageal reflux disease) Herpes simplex Hiatal hernia Widened retrocardiac hiatal hernia, 7cm x 5cm AP. Larger than 2013..Hx GERD, with possible new symptoms (12/2020). Surgery? Hyperlipidemia (07/23/12) Hypothyroidism Increased BMI (body mass index) (05/11/17) Lichen sclerosus et atrophicus Halbetasol per [facility], 01/2021. (2019. Patient advised to begin topical steroid to vulva) Localized osteoarthritis of right knee Low back pain Lung nodule < 6cm on CT 4mm, per 12/2020 CT (new since 2012).. 6 mo FU [ ] Neoplasm of uncertain behavior of skin (05/15/14) Left forehead, status post excision with primary closure. Seborrheic keratosis by final pathology. 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 Perez on 01/06/20 Pneumonia, organism unspecified Post-nasal drip Screening mammography declined Shortness of breath Sialoadenitis (10/31/13) Dr.Godfrey Sjogren's disease Skin lesion of neck Snoring Stopped smoking with greater than 40 pack year history Tobacco dependence Tubular adenoma of colon (04/25/16) Unilateral primary osteoarthritis, left knee Surgical History Abdominal hysterectomy ENDOMETRIOSIS; ONE OVARY REMAINS Colonoscopy - IV Sedation (04/25/16) History of ankle surgery hardware present History of bunionectomy of both great toes History of carpal tunnel surgery of left wrist History of colpocleisis History of suburethral sling procedure 12/18/18 Vaginectomy/colpocleisis with Posterior colporrhapy and transobturator mid urethral sling at [facility] Hx of appendectomy Hx of thumb surgery Prolapse of female pelvic organs Stage III post hysterectomy vaginal prolapse with stress incontinence. Rx at [facility] 12/18/18. Status post abdominal hysterectomy Status post tonsillectomy 2018? Tonsillectomy Family History Mother , AGE 91 Alzheimer disease Father , AGE 86 Essential hypertension AAA (abdominal aortic aneurysm) Alzheimer disease Heart disease Hyperlipidemia Bladder cancer Sister No problems noted. Maternal Grandfather , SHOT AGE 35 No problems noted. Paternal Grandfather , AGE 93 Heart disease Maternal Grandmother , AGE 64 Uterine cancer Paternal Grandmother , AGE 73 AAA (abdominal aortic aneurysm) Stroke Son No problems noted. Son Asthma Son No problems noted. Social History Smoking/Tobacco Use Status: Former Tobacco Use Tobacco: How many years used: 45 Smoking risk assessment performed?: Yes Alcohol Intake: current Alcohol Intake frequency: holidays/special occasions only Alcohol type: beer and wine Drug use: Never Substance use type: does not use Counseling given: No Counseling provided: other Adopted: No Caregiver/Support person: No Foster care: No Household members: none Housing: house Number of Children: 3 number of grandchildren: 6 Communication Needs: None Education Level: college Details: Associate's Degree Do you need help understanding health information?: Never 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[employer] Pets and animals: No Sexually active: No Do you think of yourself as: straight/heterosexual Current gender identity: female What is your relationship status?: How often do you talk on the phone with friends or family?: three or more times per week How often do you get together with friends or relatives?: twice per week Do you belong to any clubs or organized social groups?: yes Panel score (0-1 are the most socially isolated patients): 2 What type of physical activity do you participate in: weight lifting and occasional exercise Duration: > 90 minutes/day Frequency: daily Any/Confucianism: Confucianism Special any needs: No Seatbelt use: always Helmet use: No 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 Do you feel safe at home: Yes Additional Social history: lives alone Female Reproductive History Menstrual Menopause type: surgical History History 3 Para Hx # Term Pregnancies 3 Multiple births Hx # Pregnancies Ectopic pregnancies AB induced Hx Number of Living Children AB spontaneous Meds Allergies and Home Medications Allergies Allergy/AdvReac Type Severity Reaction Status Date / Time codeine Allergy Severe Anaphylaxsi Verified 01/12/21 11:59 s morphine Allergy Severe Anaphylaxsi Verified 01/12/21 11:59 s oxycodone Allergy Severe Anaphylaxsi Verified 01/12/21 11:59 s amoxicillin [From Augmentin] AdvReac Intermediate Hives Verified 01/12/21 11:59 Swelling clavulanic acid AdvReac Intermediate Hives Verified 01/12/21 11:59 [From Augmentin] Swelling lisinopril AdvReac Intermediate cough Verified 01/12/21 11:59 pentazocine AdvReac Intermediate Other (See Verified 01/12/21 11:59 Comment) diphenhydramine AdvReac Mild Benadryl Verified 01/12/21 11:59 [From Benadryl] and Tylenol PM poorly tolerated, wound up. varenicline AdvReac Mild Other (See Verified 01/12/21 11:59 Comment) lactose AdvReac Diarrhea Verified 01/12/21 11:59 Home Medications Medication Instructions Recorded Confirmed Type cholecalciferol (vitamin D3) 2,000 unit PO DAILY 07/01/15 01/12/21 History [Vitamin D3] aspirin [Aspir-81] 81 mg PO DAILY 01/12/17 01/12/21 History sertraline 25 mg tablet 25 mg PO DAILY #90 tab 05/14/20 01/12/21 Rx meclizine 25 mg tablet 12.5 - 25 mg PO TID PRN #30 tab 06/16/20 01/12/21 Rx levothyroxine 50 mcg tablet 50 mcg PO DAILY #90 tab 07/13/20 01/12/21 Rx ropinirole 2 mg tablet 2 mg PO QHS #90 tab 07/20/20 01/12/21 Rx isosorbide mononitrate 30 mg 30 mg PO DAILY #90 tab-cap 08/25/20 01/12/21 Rx tablet,extended release 24 hr triamcinolone acetonide 0.5 % 1 applic TP BID #15 gm 08/25/20 01/12/21 Rx topical ointment tramadol 50 mg tablet 50 mg PO BID PRN #60 tab 12/05/20 01/12/21 Rx losartan 25 mg tablet 25 mg PO DAILY #90 tab 12/11/20 01/12/21 Rx nitroglycerin 0.4 mg sublingual 0.4 mg SUBLINGUAL Q5M PRN #30 tab 12/12/20 01/12/21 Rx tablet pantoprazole 40 mg tablet,delayed 40 mg PO BID #60 tab 01/04/21 01/12/21 Rx release halobetasol propionate 0.05 % 1 applic TOPICAL BID #50 g 01/05/21 01/12/21 Rx topical ointment albuterol sulfate 90 mcg/actuation 2 puff INHALATION Q6H PRN #8.5 g 01/11/21 01/11/21 Rx aerosol inhaler famotidine 40 mg tablet 40 mg PO QHS #30 tab 01/11/21 01/12/21 Rx sucralfate 100 mg/mL oral 10 ml PO QACHS #420 ml 01/11/21 01/12/21 Rx suspension acetaminophen 1,000 mg PO Q8H PRN #60 tab 01/12/21 Rx ibuprofen 600 mg PO TID PRN #30 tab 01/12/21 Rx Exam Narrative Exam Narrative: Evaluation of the left wrist shows an obvious prominence to the dorsal aspect of the wrist. This is soft and well-circumscribed soft tissues over the dorsal aspect of the left wrist. There is also some prominence to the radial aspect of the left wrist with a firm well-circumscribed lesion which is mobile and causes pain to palpation. There is no sign of infection. No pain with passive range of motion of the left wrist. Resp Effort & Inspection: normal respiratory effort Auscultation: clear to auscultation bilaterally Cardio Rate: regular rate Rhythm: regular rhythm Results Imaging Imaging Studies: MRI of the left wrist demonstrate a large lipoma over the dorsal aspect of the left wrist. This is well-circumscribed and shows no enhancing lesion. There is a more linear and less distinct lipoma seen over the more volar aspect of the wrist on the ulnar side. There does appear to be a lipoma about the radial aspect of the wrist which is well-circumscribed but does have some slight enhancement peripherally. No other suspicious finding within it. Last Vital Signs Temp 36.3 C L 01/12/21 14:04 Pulse 72 01/12/21 14:04 Resp 17 01/12/21 14:04 BP 120/67 01/12/21 14:04 Pulse Ox 96 01/12/21 14:04
== END 2021-01-12 14:30 | disposition home or self-care (01) ==
LOC: SUR 11:23
PROVIDERS: PCP Student in an Organized Health Care Education/Training Program; Visit Provider Student in an Organized Health Care Education/Training Program
PROC: (CPT 11402; principal; 2021-01-12 13:30)
DX: D17.22 Benign lipomatous neoplasm of skin and subcutaneous tissue of left arm (principal); N18.2 Chronic kidney disease, stage 2 (mild)
CPT/HCPCS: 11402 ×2; 88305

== ENCOUNTER 2021-01-15 07:51 | Outpatient (CLI) | payer MEDICARE, SELFPAY ==
[2021-01-15] MEDS: Albuterol HFA 18 GM 200 PUFF INH IH (13:54)
[2021-01-15] MEDS: Inhaler, Assist Device 1 EACH MC (13:55)
--- NOTE | 2021-01-15 15:48 | W.PFT ---
Date of service: 01/15/21 Time of Service: 13:04 Pulmonary Function Test Result Requesting Provider Mariajose Cuenca Indications: Dyspnea Interpretation Spirometry: There is no airflow limitation. There is a restrictive pattern to the spirometry. There is no significant bronchodilator effect. Impression Restrictive pattern of spirometry. Can consider lung volumes to further evaluate for restrictive lung disease. Note: When compared to spirometry performed 02/23/2012 there is a significant decline in both the FVC and FEV1. Clinical Correlation therefore is recommended.
== END 2021-01-15 07:52 | disposition home or self-care (01) ==
LOC: RT 07:55
PROVIDERS: PCP Student in an Organized Health Care Education/Training Program; Visit Provider Student in an Organized Health Care Education/Training Program
DX: R91.1 Solitary pulmonary nodule (principal); Z87.891 Personal history of nicotine dependence; R06.09 Other forms of dyspnea; R94.2 Abnormal results of pulmonary function studies
CPT/HCPCS: 94060

== ENCOUNTER → 2021-01-21 10:37 | Outpatient (BNVA) | payer MEDICARE, SELFPAY | PROVIDERS: PCP Student in an Organized Health Care Education/Training Program; Visit Provider Student in an Organized Health Care Education/Training Program | DX: Z47.89 Encounter for other orthopedic aftercare (principal); D17.22 Benign lipomatous neoplasm of skin and subcutaneous tissue of left arm; R22.32 Localized swelling, mass and lump, left upper limb; M76.822 Posterior tibial tendinitis, left leg ==

== ENCOUNTER 2021-02-09 02:32 | Outpatient (CLI) | payer MEDICARE, SELFPAY ==
--- NOTE | 2021-02-19 10:36 | W.PFT ---
Date of service: 02/09/21 Time of Service: 09:59 Pulmonary Function Test Result Requesting Provider Duchene Indications: Restrictive lung disease Interpretation Spirometry: Muscle pressures are decreased Lung Volumes: There may be mild restrictive lung disease however only 2 efforts for plethymography were acceptable. Diffusion Capacity: With the diffusion is reduced. Airway Pressure: Airways resistance is normal. Impression Possible mild restrictive lung disease with decreased muscle pressures and a reduced diffusion. Note: When compared to 02/23/2012 the total lung capacity is reduced and the diffusion is reduced. Clinical Correlation therefore is recommended.
== END 2021-02-09 02:33 | disposition home or self-care (01) ==
LOC: RT 02:32
PROVIDERS: PCP Student in an Organized Health Care Education/Training Program; Visit Provider Student in an Organized Health Care Education/Training Program
DX: J98.4 Other disorders of lung (principal); R94.2 Abnormal results of pulmonary function studies
CPT/HCPCS: 94200; 94726; 94729

== ENCOUNTER 2021-02-10 00:33 | Outpatient (CLI) | payer MEDICARE, SELFPAY ==
--- NOTE | 2021-02-10 06:45 | DI.RAD_ITS ---
Exam(s) XR CHEST 2V PA LATERAL EXAM: XR CHEST 2V PA LATERAL CLINICAL HISTORY: PRE VQ LUNG SCAN,RESTRICTIVE LUNG DISEASE,J98.4. TECHNIQUE: 2D digital imaging was performed. COMPARISON: CR XR CHEST 2V PA LATERAL from 05/27/2019 CR XR CHEST 2V PA LATERAL from 05/27/[address] CHEST LUNG CANCER SCREEN from 12/28/[address] CHEST LUNG CANCER SCREEN from 12/28/2020 FINDINGS: Moderate size retrocardiac hiatal hernia is again noted. Heart size is upper normal, unchanged. Mediastinum not widened. Right lung is clear. There subsegm ental platelike atelectasis in the superior lingular segment of the left lung more evident than previ ous. No pleural effusions. IMPRESSION: Platelike atelectasis in the superior lingular segment of the left lung. No other pulmonary findings . Moderate size retrocardiac hiatal hernia again evident. DATA REPOSITORY: RADIATION DOSE DELIVERED:
--- NOTE | 2021-02-10 10:45 | DI.NM_ITS ---
Exam(s) NM LUNG SCAN VENT PERF GRP EXAM: NM LUNG SCAN VENT PERF GRP CLINICAL HISTORY: low DLCO, no PH, concern for CTED,RESTRICTIVE LUNG DISEASE,J98.4. TECHNIQUE: Injected Dose: Ventilation: 35 mCi Tc-99m DTPA via inhalation Perfusion: 4.8 mCi Tc-99m MAA via IV COMPARISON: CR XR CHEST 2V PA LATERAL from 02/10/2021 FINDINGS: There is a small matched defect in the superior segment of the left lower lobe. There are no promine nt V/Q mismatches. IMPRESSION: 1. By the PIOPED criteria this scan is low probability for the presence of recent hemodynamically sig nificant pulmonary emboli. Modified PIOPED II criteria Probability Criteria High Two or more segments of V/Q mismatch Low Normal Perfusion, Non segmental perfusion abnormalitie s, pleural effusion in at least 1/3 of pleural cavity with no other defect Radiograph/perfusion matched defect in mid to upper lung confined to segment, one to three small segmental perfusion defects (<25% of segment) Perfusion defect smaller than corresponding radiogra phic lesion. Intermediate All other findings DATA REPOSITORY:
== END 2021-02-10 00:53 ==
PROVIDERS: PCP Student in an Organized Health Care Education/Training Program; Visit Provider Student in an Organized Health Care Education/Training Program
DX: J98.4 Other disorders of lung (principal); J98.11 Atelectasis
CPT/HCPCS: 78582; 71046

== ENCOUNTER → 2021-03-18 10:38 | Outpatient (BNVA) | payer MEDICARE, SELFPAY | PROVIDERS: PCP Student in an Organized Health Care Education/Training Program; Referring Provider Student in an Organized Health Care Education/Training Program; Visit Provider Student in an Organized Health Care Education/Training Program | DX: M76.822 Posterior tibial tendinitis, left leg (principal); M17.12 Unilateral primary osteoarthritis, left knee | CPT/HCPCS: 99213 ==

== ENCOUNTER 2021-05-28 21:37 | Outpatient (CLI) | payer MEDICARE, SELFPAY ==
--- NOTE | 2021-05-28 11:15 | DI.CT_ITS ---
Exam(s) CT ABDOMEN PELVIS W EXAM: CT ABDOMEN PELVIS W CLINICAL HISTORY: right thigh pain, severe rt groin pain, R10.31, M79.651 TECHNIQUE: Imaging Protocol: Axial computed tomography images with coronal and sagittal reformatted images were created and reviewed CONTRAST MATERIAL: Intravenous: Omnipaque 350 Contrast volume:100 mL Oral: Yes COMPARISON: CT UPPER ABD WITH CONTRAST (P) from 05/09/2017 FINDINGS: ABDOMEN: Lung Bases: Normal where visualized. There is a large hiatal hernia. Liver: Normal density. No measurable mass. Portal, Superior Mesenteric, and Splenic Veins: Unremarkable. Gallbladder and Biliary Tract: There appear to be stones within the dependent portion of the gallblad joan. No biliary ductal dilatation. Pancreas: Normal density, no abnormal calcifications or inflammatory process. Spleen: Normal. Adrenals: There is a stable left adrenal nodule. The right adrenal gland is unremarkable. Kidneys: Normal size, contour and axis. No radiodense stones or obstructive uropathy. No masses seen. Note is made of a circum aortic left renal vein. Abdominal Aorta: Abdominal portion non-dilated. Atherosclerosis. Bowel: No obstruction or bowel wall thickening. No evidence of appendicitis. There is diverticulosis in the colon but no evidence of acute diverticulitis. Peritoneal Cavity: No ascites, collection or mesenteric inflammatory response. No free air. Lymph Nodes: Within normal limits. Bones: Within normal limits for the patient's age. Soft Tissues: No evidence of an inguinal hernia. PELVIS: Bladder: Symmetric distention, no gross wall thickening. Reproductive Organs: Status post hysterectomy. Lymph Nodes: Within normal limits. Bones: Within normal limits for the patient's age. IMPRESSION: No acute abdominal or pelvic process. RADIATION DOSE DELIVERED: 1,596.14mGy.cm Total DLP DATA REPOSITORY: All CT scans at this facility are submitted to the National Radiology Data Registry (NRDR) Dose Index Registry (DIR) with the [employer] (ACR). RADIATION OPTIMIZATION: All CT scans at this facility use at least one of these dose optimization te chniques: automated exposure control; mA and/or kV adjustment per patient size (includes targeted exa ms where dose is matched to clinical indication); or iterative reconstruction.
[2021-05-28 11:52] LABS: CREATININE 1.1 mg/dL (0.55-1.02); Estimated GFR 48.42 (mL/min/1.73m2)
[2021-05-28] MEDS: Breeza Beverage 473 ML BTL PO ×2 (11:53→11:54)
[2021-05-28] MEDS: Omnipaque 350 MG/ML 50 ML BTL PO (11:54)
[2021-05-28 11:59] LABS: Anion Gap 2.3 mmol/L (3-11); BUN 27 mg/dL (7-18); CO2 30.7 mmol/L (21.0-32.0); CREATININE 1.1 mg/dL (0.55-1.02); Calcium 8.8 mg/dL (8.5-10.1); Calculated LDL 89 mg/dL (<100); Chloride 103 mmol/L (98-107); Cholesterol 236 mg/dL (<200); Estimated GFR 48.42 (mL/min/1.73m2); Glucose 98 mg/dL (74-106); HDL Cholesterol 138 mg/dL (40-60); Potassium 4.4 mmol/L (3.5-5.1); Sodium 136 mmol/L (136-145); Triglyceride 45 mg/dL (<150)
[2021-05-28] MEDS: Omnipaque 350 MG/ML 100 ML BTL IJ (13:55)
== END 2021-05-28 21:57 ==
PROVIDERS: PCP Student in an Organized Health Care Education/Training Program; Visit Provider Obstetrics & Gynecology
DX: R10.31 Right lower quadrant pain (principal); K44.9 Diaphragmatic hernia without obstruction or gangrene; K80.20 Calculus of gallbladder without cholecystitis without obstruction; E03.9 Hypothyroidism, unspecified; R79.89 Other specified abnormal findings of blood chemistry
CPT/HCPCS: 80048; 80061; 74177; 82565; J3490; Q9967

== ENCOUNTER 2021-06-10 03:37 | Outpatient (CLI) | payer MEDICARE, SELFPAY ==
--- NOTE | 2021-06-10 07:00 | DI.MRI_ITS ---
Exam(s) MR LOWER EXTREMITY RT WO EXAM: MR LOWER EXTREMITY RT WO CLINICAL HISTORY: OUT OF PROPORTION leg pain,m79.606. TECHNIQUE: Multiplanar multisequence MRI was performed. Large [id number] implied extending from hip to knee. COMPARISON: None. FINDINGS: The exam is limited by patient body habitus and patient motion.. BONES/JOINTS: No evidence of fracture. No evidence of bone lesion. No joint space narrowing identifie d. A moderate-sized hip joint effusion is seen. SOFT TISSUES: Subcutaneous edema greater laterally, increasing distally. No muscle edema. No soft t issue mass. No drainable fluid collection.. IMPRESSION: Subcutaneous edema, greater disc greater laterally and distally. No evidence of soft tissue mass or hematoma. Moderate-sized hip joint effusion. DATA REPOSITORY:
== END 2021-06-10 03:57 ==
PROVIDERS: PCP Student in an Organized Health Care Education/Training Program; Visit Provider Family Medicine
DX: M79.604 Pain in right leg (principal); R60.9 Edema, unspecified; M25.451 Effusion, right hip
CPT/HCPCS: 73718

== ENCOUNTER → 2021-06-14 13:04 | Outpatient (BNVA) | payer MEDICARE, SELFPAY | PROVIDERS: PCP Student in an Organized Health Care Education/Training Program; Referring Provider Student in an Organized Health Care Education/Training Program; Visit Provider Student in an Organized Health Care Education/Training Program | DX: R69 Illness, unspecified (principal) ==

== ENCOUNTER 2021-06-14 16:36 | Outpatient (CLI) | payer MEDICARE, SELFPAY ==
--- NOTE | 2021-06-14 16:26 | DI.RAD_ITS ---
Exam(s) RF JOINT INJECTION FLUORO GUID EXAM: RF JOINT INJECTION FLUORO GUID CLINICAL HISTORY: Right hip pain M25.551. TECHNIQUE: Fluoroscopy was provided for the referring physician for guidance with performing injecti on procedure. COMPARISON: No exams were available for comparison FINDINGS: A single hard copy image shows a needle projecting at the margin of the right femoral head with injec tion of a small quantity of contrast. Please see procedure note for details. Fluoro time: 1 second RADIATION DOSE DELIVERED: maria Blunt=12.0 mGy
[2021-06-14] MEDS: Bupivacaine 0.5% Pres-Free 10 ML VIAL IJ (16:37)
[2021-06-14] MEDS: methylPREDNISolone ACETATE 80 MG/ML VIAL IM (16:38)
[2021-06-14] MEDS: Omnipaque 300 MG/ML 10 ML BTL IJ (16:38)
--- NOTE | 2021-06-14 18:12 | OPPNE_ITS ---
Date of service: 06/14/21 Time of Service: 16:20 Procedure Note Date of procedure: 06/14/21 Procedure: Right Hip Aspiration and Injection with Fluoroscopic Guidance Surgeon/Proceduralist/Physician: Guanako Bartholomew Procedure Diagnosis: Acute Right Hip Pain and Effusion Procedure Indications: Fe has had acute onset of debilitating pain of the RIGHT hip and groin. The pain has only worsened despite nonoperative treatments and recent MRI demonstrated a large effusion about the hip. To serve as both diagnostic and therapeutic, an aspiration and injection under fluoroscopy was recommended. I had discussed the risks of the procedure and the patient elected to proceed. Procedure Description: Fe was greeted in the flouroscopy room. The correct side was identified and the consent was reviewed with the patient and signed. The patient was then placed in the supine position on the fluoroscopy table. The RIGHT hip was then prepped with Chloraprep. The anterolateral injection starting point was identiifed by bony landmarks and fluoroscopy. The skin and soft tissue in the tract of the injection was anesthetized with 1% Lidocaine. A spinal needle was then inserted deep into the hip joint at the level of the lateral femoral neck under fluoroscopic guidance. Immediately, there was joint fluid which extravasated through the needle. I aspirated about 8cc of normal appearing joint fluid with some blood at the end of the aspiration. There was no gross purulence. A small amount of Omnipaque solution was injected to confirm intraarticular placement. Once confirmed, the hip was injected with 6cc of 0.5% Bupivicaine and 80mg of Depo-Medrol. A bandaid was placed on the injection site. The patient tolerated the procedure well and noted improvement in pre- injection pain.
== END 2021-06-14 16:56 ==
PROVIDERS: PCP Student in an Organized Health Care Education/Training Program; Visit Provider Student in an Organized Health Care Education/Training Program
DX: M25.551 Pain in right hip; M25.451 Effusion, right hip
CPT/HCPCS: 20610; 77002; J1040

== ENCOUNTER 2021-06-14 17:35 | Outpatient (REF) | payer MEDICARE, SELFPAY ==
[2021-06-14 17:17] LABS: Clarity Cloudy; Nucleated Cells 373 uL (0)
[2021-06-14 17:35] LABS: Mononuclear Cells 82 %; Polynuclear Cells 18 %
== END 2021-06-14 17:36 | disposition home or self-care (01) ==
LOC: LBN 17:35
PROVIDERS: PCP Student in an Organized Health Care Education/Training Program; Visit Provider Student in an Organized Health Care Education/Training Program
DX: M79.651 Pain in right thigh (principal); M25.551 Pain in right hip
CPT/HCPCS: 87070; 87205; 89051

== ENCOUNTER 2021-07-01 02:06 | Outpatient (CLI) | payer MEDICARE, SELFPAY ==
--- NOTE | 2021-07-01 07:30 | DI.CT_ITS ---
Exam(s) CT CHEST WO EXAM: CT CHEST WO CLINICAL HISTORY: abnl finding, nodule,r91.1,r93.89,z87.891. TECHNIQUE: Imaging protocol: Axial computed tomography images were obtained and coronal and sagittal reformatted images were created and reviewed. COMPARISON: CT CT CHEST LUNG CANCER SCREEN from 12/28/2020 FINDINGS: Tracheobronchial tree: Patent where visualized. Pulmonary parenchyma: There is a 3 mm nodule in the superior segment of the right lower lobe. There is a stable 4.3 mm nodule in the right lower lobe. There is a 2.5 mm nodule in the left upper lobe. No other pulmonary nodules are identified. There is scarring seen in the lingula, right middle lobe and left lower lobe. No focal consolidating infiltrates are present. No architectural distortion. Mediastinum and Chelsi: No dominant adenopathy or fluid collection. There is a large hiatal hernia. Thyroid gland: Unremarkable. Pleura: No effusion or pneumothorax. Heart: The heart is not dilated. Coronary artery calcification is present. No pericardial effusion. Aorta: Thoracic aorta non-dilated. Atherosclerosis. Upper abdomen: Hyperdense debris is seen in the gallbladder suspicious for cholelithiasis. There is a stable left adrenal nodule. Lymph nodes: Within normal limits. Soft tissues: Unremarkable. Bones:Within normal limits for the patient's age. IMPRESSION: 1. Right and left pulmonary nodules. The previously seen right lower lobe pulmonary nodule appears st able. 2. Lung RADS Cat 2 - Benign Appearance / Behavior: Nodules with a very low likelihood of becoming a clinically active cancer due to size or lack of growth RADIATION DOSE DELIVERED: 724.75mGy.cm Total DLP 724.75mGy.cm Total DLP DATA REPOSITORY: All CT scans at this facility are submitted to the National Radiology Data Registry (NRDR) Dose Index Registry (DIR) with the [employer] (ACR). RADIATION OPTIMIZATION: All CT scans at this facility use at least one of these dose optimization te chniques: automated exposure control; mA and/or kV adjustment per patient size (includes targeted exa ms where dose is matched to clinical indication); or iterative reconstruction.
== END 2021-07-01 02:26 ==
PROVIDERS: PCP Student in an Organized Health Care Education/Training Program; Visit Provider Student in an Organized Health Care Education/Training Program
DX: R91.1 Solitary pulmonary nodule (principal); R93.89 Abnormal findings on diagnostic imaging of other specified body structures; Z87.891 Personal history of nicotine dependence
CPT/HCPCS: 71250

== ENCOUNTER 2021-07-19 15:40 | Outpatient (CLI) | payer MEDICARE, SELFPAY ==
--- NOTE | 2021-07-19 15:30 | DI.RAD_ITS ---
Exam(s) XR LUMBAR SPINE AP, LAT EXAM: XR LUMBAR SPINE AP, LAT CLINICAL HISTORY: pain. TECHNIQUE: 2D digital imaging was performed. COMPARISON: No exams were available for comparison FINDINGS: Vertebral bodies are well maintained in height. The disc spaces are well maintained. There are endp late osteophytes throughout. No spondylolysis or spondylolisthesis. Facet degenerative changes are present, greatest at L5-S1. There is partial lumbarization S1. The SI joints show minimal degenerat bashir changes. Calcification is seen in the aorta. IMPRESSION: Mild degenerative disc changes. DATA REPOSITORY: RADIATION DOSE DELIVERED:
== END 2021-07-19 15:41 | disposition home or self-care (01) ==
LOC: DIORS 15:40
PROVIDERS: PCP Student in an Organized Health Care Education/Training Program; Referring Provider Student in an Organized Health Care Education/Training Program; Visit Provider Student in an Organized Health Care Education/Training Program
DX: M54.50 Low back pain, unspecified (principal); M16.0 Bilateral primary osteoarthritis of hip; M48.061 Spinal stenosis, lumbar region without neurogenic claudication
CPT/HCPCS: 99214; 72100

== ENCOUNTER 2021-07-20 03:15 | Outpatient (CLI) | payer MEDICARE, SELFPAY ==
[2021-07-20 14:11] LABS: Anion Gap 8.9 mmol/L (3-11); BUN 20 mg/dL (7-18); CO2 33.1 mmol/L (21.0-32.0); CREATININE 1.5 mg/dL (0.55-1.02); Calcium 9.4 mg/dL (8.5-10.1); Chloride 101 mmol/L (98-107); Estimated GFR 33.85 (mL/min/1.73m2); Glucose 95 mg/dL (74-106); Magnesium 2.2 mg/dL (1.8-2.4); Potassium 3.5 mmol/L (3.5-5.1); Sodium 143 mmol/L (136-145)
== END 2021-07-20 03:16 | disposition home or self-care (01) ==
LOC: LBO 03:15
PROVIDERS: PCP Student in an Organized Health Care Education/Training Program; Referring Provider Student in an Organized Health Care Education/Training Program; Visit Provider Student in an Organized Health Care Education/Training Program
DX: E87.6 Hypokalemia (principal); N18.2 Chronic kidney disease, stage 2 (mild)
CPT/HCPCS: 36415; 80048; 83735

== ENCOUNTER → 2021-07-29 01:33 | Outpatient (CLI) | payer MEDICARE, SELFPAY ==
--- NOTE | 2021-07-29 07:00 | DI.RAD_ITS ---
Exam(s) RF JOINT INJECTION FLUORO GUID EXAM: RF JOINT INJECTION FLUORO GUID CLINICAL HISTORY: L HIP INJ UNDER FLUORO, LT HIP PAIN,M25.552 TECHNIQUE: Fluoroscopy provided. Radiologist not present. CONTRAST MATERIAL: None COMPARISON: No exams were available for comparison FINDINGS: Fluoroscopy was provided for therapeutic left hip joint injection. Submitted image(s) reveal needle placement femoral head junction contrast injection into the intra-ar ticular space. Please refer to the procedure report for complete details. Cumulative Dose: maria Blunt=2.72 mGy IMPRESSION: RADIATION DOSE DELIVERED:
--- NOTE | 2021-07-29 13:40 | OPPNE_ITS ---
Date of service: 07/29/21 Time of Service: 13:25 Procedure Note Date of procedure: 07/29/21 Procedure: Left Hip Injection with Fluoroscopic Guidance Surgeon/Proceduralist/Physician: Guanako Bartholomew Procedure Diagnosis: Left Hip Pain Procedure Indications: Fe has had persistent pain of the LEFT hip and groin. Noninvasive measures have been tried. To serve as both diagnostic and therapeutic, an injection under fluoroscopy was recommended. I had discussed the risks of the procedure and the patient elected to proceed. Procedure Description: Fe was greeted in the flouroscopy room. The correct side was identified and the consent was reviewed with the patient and signed. The patient was then placed in the supine position on the fluoroscopy table. The LEFT hip was then prepped with Chloraprep. The anterolateral injection starting point was identiifed by bony landmarks and fluoroscopy. The skin and soft tissue in the tract of the injection was anesthetized with 1% Lidocaine. A spinal needle was then inserted deep into the hip joint at the level of the lateral femoral neck under fluoroscopic guidance. Immediately a reyes of clear synovial fluid came through the needle. I was able to aspirate about 5cc of clear, normal appearing joint fluid. Then, a small amount of Omnipaque solution was injected to confirm intraarticular placement. Once confirmed, the hip was injected with 6cc of 0.5% Bupivicaine and 80mg of Depo-Medrol. A bandaid was placed on the injection site. The patient tolerated the procedure well and noted improvement in pre- injection pain.
[2021-07-29] MEDS: Bupivacaine 0.5% Pres-Free 30 ML VIAL 5 ML IJ (13:54)
[2021-07-29] MEDS: methylPREDNISolone ACETATE 80 MG/ML VIAL IM (14:14)
[2021-07-29] MEDS: Omnipaque 300 MG/ML 10 ML BTL IJ (14:15)
== END ==
PROVIDERS: PCP Student in an Organized Health Care Education/Training Program; Visit Provider Student in an Organized Health Care Education/Training Program
DX: M25.552 Pain in left hip (principal)
CPT/HCPCS: 20610; 77002; J1040

== ENCOUNTER → 2021-08-03 04:13 | Outpatient (CLI) | payer MEDICARE, SELFPAY ==
--- NOTE | 2021-08-03 08:15 | DI.MRI_ITS ---
Exam(s) MR LUMBAR SPINE WO EXAM: MR LUMBAR SPINE WO CLINICAL HISTORY: BACK PAIN, LUMBAR RADICULOPATHY,M54.16. TECHNIQUE: Multiplanar multisequence MRI of the Lumbar spine was performed. COMPARISON: CR XR LUMBAR SPINE AP, LAT from 07/19/2021 FINDINGS: Bones: The last intervertebral disc space is designated the L5/S1 level for the numbering purpose of this examination. The vertebral body heights are well maintained. There is partial lumbarization o f S1. Alignment is satisfactory. Degenerative endplate signal changes and endplate osteophytes are se en at multiple levels of the lumbar spine. Cord: The conus tip ends at the L1-L2 level. It is of normal size and signal intensity. T12-L1: No disc herniations or bulges are present. No central spinal canal or neural foraminal stenos is. L1-2: There is a small right-sided disc herniation with extrusion posterior to the L2 vertebral body. No central spinal canal or neural foraminal stenosis. L2-3: There is a mild diffuse disc bulge. No central spinal canal or neural foraminal stenosis. L3-4: No disc herniations or bulges are present. No central spinal canal or neural foraminal stenosis . L4-5: There is a diffuse disc bulge. There is a left paracentral disc herniation with extrusion post erior to the L4 vertebral body. It causes left lateral recess stenosis with compression on the left L4 nerve root. There is mild narrowing of the central spinal canal. There is mild narrowing of the left neural foramen. The right neural foramen is unremarkable. L5-S1: There is a mild diffuse disc bulge. There are degenerative changes of the facets. No signifi cant central spinal canal stenosis is present. No significant neural foraminal stenosis is identifie d. Soft tissues: The visualized SI joints and sacrum are well maintained. The paraspinal soft tissues ar e unremarkable. IMPRESSION: 1. Multilevel degenerative changes in the lumbar spine resulting in central spinal canal neural yuki inal stenosis as described above. 2. Left paracentral disc herniation with extrusion posterior to the L4 vertebral body causing left la teral recess stenosis with compression of the left L4 nerve root. 3. Small right-sided L1-L2 disc herniation with extrusion posterior to L2. DATA REPOSITORY:
== END ==
PROVIDERS: PCP Student in an Organized Health Care Education/Training Program; Visit Provider Student in an Organized Health Care Education/Training Program
DX: M51.16 Intervertebral disc disorders with radiculopathy, lumbar region; M51.37 Other intervertebral disc degeneration, lumbosacral region; M99.83 Other biomechanical lesions of lumbar region
CPT/HCPCS: 72148

== ENCOUNTER 2021-08-10 02:32 | Outpatient (CLI) | payer MEDICARE, SELFPAY ==
[2021-08-10 12:50] LABS: Anion Gap 5.7 mmol/L (3-11); BUN 18 mg/dL (7-18); CO2 32.3 mmol/L (21.0-32.0); CREATININE 1.4 mg/dL (0.55-1.02); Chloride 103 mmol/L (98-107); Estimated GFR 36.66 (mL/min/1.73m2); Glucose 99 mg/dL (74-106); Potassium 3.9 mmol/L (3.5-5.1); Sodium 141 mmol/L (136-145)
== END 2021-08-10 02:33 | disposition home or self-care (01) ==
LOC: LBO 02:32
PROVIDERS: PCP Student in an Organized Health Care Education/Training Program; Visit Provider Student in an Organized Health Care Education/Training Program
DX: I50.9 Heart failure, unspecified (principal); N28.9 Disorder of kidney and ureter, unspecified; R79.89 Other specified abnormal findings of blood chemistry
CPT/HCPCS: 36415; 80048

== ENCOUNTER 2021-08-12 09:14 | Outpatient (CLI) | payer MEDICARE, SELFPAY ==
--- NOTE | 2021-08-12 06:00 | DI.RAD_ITS ---
Exam(s) XR PAIN CLINIC LUMBAR SP 2V EXAM: XR PAIN CLINIC LUMBAR SP 2V CLINICAL HISTORY: lumbar radiculopathy TECHNIQUE: 2D and realtime digital imaging was performed. COMPARISON: No exams were available for comparison FINDINGS: C-arm fluoroscopy was utilized by Dr. Macias during apparent lumbar epidural injection. Hard copy show s epidural injection at the midline at the L5-S1 level. IMPRESSION: RADIATION DOSE DELIVERED: maria Blunt=14.22 mGy
[2021-08-12 09:45] VITALS: BP 112/73; PULSE 76; RESP 22; TEMP 36.6; O2SAT 98
--- NOTE | 2021-08-12 10:38 | PDOC.PAIN ---
Pain Clinic Procedure Note Procedure Note Procedure Note: Lumbar Epidural Steroid Injection Procedure Note COMMENTS: I discussed her signs and symptoms with Dr. Bartholomew. She is having progressive pain and weakness to the bilateral legs. She has a new lumbar spine MRI with an L4-L5 disc herniation, which is likely contributing to her signs and symptoms. For this reason we did expedite her scheduling for this procedure. I did explain all of this to the patient and she understands and does consent. She apreciates the expedited appointment as she is in severe pain and has lots to do. Pre-procedure pain VAS = 10/10 Dx: Lumbosacral radiculopathy Fe Ibanez has been referred to the [facility] for lumbar epidural steroid injection. The patient was greeted by the nurse who verified patients name and . Patient was then taken to the fluoroscopy suite. The patient was interviewed and the medial record reviewed. There were no medical, pharmacologic, radiographic, or other structural contraindications to attempting fluoroscopically guided lumbar epidural steroid injection. Risks and expected side effects as well as potential benefits of the procedure were reviewed and voiced concerns expressed. The patient consent form was signed and witnessed. Standard patient time-out procedure was performed. The patient was placed in the prone position on the fluoroscopy table and automated blood pressure cuff and pulse oximeter applied. The skin entry point for entering/approaching the epidural space at L5-S1 and marked. Following thorough chlorhexadine preparation of the skin and draping and 1% lidocaine infiltration of the skin entry point and subcutaneous tissues, a 18 gauge Touhy needle was placed under fluoroscopic guidance and with loss of resistance technique into the epidural space. Needle tip placement and depth were aided and confirmed by fluoroscopy. There was no paresthesia or return of blood or CSF through the needle. 1 cc's of Omnipaque 240 was injected with clear epidural spread confirmed with fluoroscopy. 80mg depomedrol was injected. There was not any unusual discomfort expressed by Fe Ibanez. Patient's vital signs were stable throughout the procedure and were as recorded in nursing records. Follow up plans and appointments were discussed with patient. Post procedure instruction was given as documented in nursing records and having met discharge criteria and was discharged from the [facility]. COMMENTS: If this procedure is helpful, it can be completed up to 3 times per 12 months. Post-procedure pain VAS = 7/10. Kirby Macias DO, MPH [facility]
[2021-08-12] MEDS: methylPREDNISolone ACETATE 80 MG/ML VIAL IJ (10:42)
[2021-08-12] MEDS: Omnipaque 240 MG/ML 50 ML BTL IJ (10:42)
[2021-08-12 10:43] VITALS: BP 119/76; PULSE 87; RESP 19; O2SAT 100
== END 2021-08-12 09:15 | disposition home or self-care (01) ==
LOC: PC 09:15
PROVIDERS: PCP Student in an Organized Health Care Education/Training Program; Visit Provider Preventive Medicine Occupational Medicine
DX: M54.16 Radiculopathy, lumbar region (principal)
CPT/HCPCS: 62323; 72100; J1040; Q9967

== ENCOUNTER 2021-09-03 12:44 | Outpatient (CLI) | payer MEDICARE, SELFPAY ==
[2021-09-03 12:14] LABS: ALT 23 U/L (14-59); AST 16 U/L (15-37); Albumin 3.7 g/dL (3.4-5.0); Alkaline Phosphatase 85 U/L (46-116); Anion Gap 8.6 mmol/L (3-11); BUN 28 mg/dL (7-18); Bilirubin, Total 0.4 mg/dL (0.2-1.0); CO2 29.4 mmol/L (21.0-32.0); CREATININE 1.7 mg/dL (0.55-1.02); Calcium 9.7 mg/dL (8.5-10.1); Chloride 103 mmol/L (98-107); Glucose 100 mg/dL (74-106); Potassium 4.2 mmol/L (3.5-5.1); Sodium 141 mmol/L (136-145); Total Protein 7.3 g/dL (6.4-8.2)
--- OUTSIDE RECORDS SUMMARY | 2021-09-03 16:43 | XMS_ITS | Encounter Summary ---
:1945 Author Care Team Providers Name Role Phone Mariajose Cuenca Primary Care Provider [phone] Javid Perez MD Resident Associate [phone] Annia Cassidy NP Sleep Medicine Unavailable Reason for Visit None recorded. Assessment and Plan Assessment Note Pt came in this morning for IV lasix , patient lost a total of 6.5 pounds since yesterday. Her vitals were 146/ 74 P 88 . We will check in with her Monday morning to see how she is doing . Discussion Note: None recorded.Patient educational handouts: No information available. Plan of Care Reminders Provider Appointments Office 15 09/09/2021 3:00PM Nurse Cardio logy ? Follow up 10/18/2021 8:30AM Javid Perez MD ? Office 11/19/2021 10:00AM Annia garcia NP Lab None recorded. ? ? Referral None recorded. ? ? Procedures None recorded. ? ? Surgeries None recorded. ? ? Imaging None recorded. ? ? Medications Name Start Date ? ? albuterol sulfate HFA 90 mcg/actuation aerosol inhaler ? INHALE 2 PUFFS EVERY 6 HOURS NEEDED FOR SHORTNESS OF BREATH OR WHEEZING, TRAIL TWO TIMES A DAY FOR 1 WEEK FOR FOR SHORTNESS OF BREATH aspirin 81 mg tablet,delayed release ? Take 1 tablet every day by oral route. atorvastatin 40 mg tablet ? Take 1 tablet every day by oral route at bedtime. Entresto 97 mg-103 mg tablet ? Take 1 tablet twice a day by oral route. famotidine 40 mg tablet ? TAKE 1 TABLET BY MOUTH AT BEDTIME TO HELP WITH MORNIN G NAUSEA/REFLUX Farxiga 10 mg tablet ? Take 1 tablet every day by oral route. halobetasol propionate 0.05 % topical cream ? APPLY A THIN LAYER TO THE AFFECTED AREA (S) BY TOPICAL ROUTE ONCE DAILY DO NOT EXCEED 50 GRAMS PER WEEK OR 2 WEEKS DURATION halobetasol propionate 0.05 % topical ointment ? APPLY TINY AMOUNT TO VULVAR TWO TIMES A DAY FOR 2 WEEKS THEN DAILY FOR 2 WEEKS THEN TWICE WEEKLY ibuprofen 600 mg tablet ? TAKE ONE TABLET BY MOUTH THREE TIMES A DAY NEEDED isosorbide mononitrate ER 60 mg tablet,extended releas e 24 hr ? Take 1 tablet every day by oral route. levothyroxine 50 mcg tablet ? TAKE ONE TABLET BY MOUTH EVERY DAY meclizine 25 mg tablet ? TAKE 1/2 TO 1 TABLET BY MOUTH THREE TIMES A DAY NE EDED FOR DIZZINESS meloxicam 15 mg tablet ? TAKE 1 TABLET BY MOUTH DAILY MAX DAILY DOSE 15MG nitroglycerin 0.4 mg sublingual tablet ? PLACE ONE TABLET UNDER THE TONGUE EVERY 5 MINUTES FOR UP TO 3 DOSES NEEDED FOR CHEST PAIN. IF CHEST PAIN STILL PERSISTS CONTACT 911 pantoprazole 40 mg tablet,delayed release ? TAKE ONE TABLET BY MOUTH TWICE A DAY potassium chloride ER 20 mEq tablet,extended release ? Take 1 tablet every day by oral route. ropinirole 3 mg tablet ? TAKE ONE TABLET BY MOUTH 1-3 HOURS BEFORE BEDTIME (ST OP 2MG) sertraline 25 mg tablet ? TAKE 1 TABLET BY MOUTH DAILY sucralfate 1 gram tablet ? TAKE 1 TABLET BY MOUTH DIRECTED BEFORE MEALS AND A T BEDTIME torsemide 20 mg tablet ? Take 2 tablets every day by oral route. take 2 tablets in the morning to equal 40 MG tramadol 50 mg tablet ? TAKE ONE TABLET BY MOUTH TWICE A DAY NEEDED FOR PA IN triamcinolone acetonide 0.5 % topical ointment ? APPLY TINY AMOUNT TO VULVA TWO TIMES A DAY FOR 2 WEEKS THEN DAILY FOR 2 WEEKS THEN TWICE WEEKLY Vitamin D3 ? 1 tablet daily Medications Administered None recorded. Vitals None recorded. Results Lab Results None recorded. Allergies Code Code System Name Reaction Severity Onset 257112 RxNorm Augmentin Hives Moderate to Severe ? 2670 RxNorm Codeine ? ? ? 1311 RxNorm Lactose ? ? ? 1171 RxNorm Morphine Anaphylaxis Severe ? 1554 RxNorm Oxycodone ? ? ? 8431 RxNorm Pentazocine ? ? ? 754346 RxNorm Varenicline ? ? ? Notes: No seafood/contrast allergy. Problems Name Status Onset Date Source ? Snoring Active 04/30/2021 ? Restless Legs Active ? ? Benign Paroxysmal Positional Vertigo Active ? ? Hypertensive Disorder Active ? ? Pulmonary Hypertension Active ? ? Gastroesophageal Reflux Disease Active ? ? Sj?Gren's Syndrome Active ? ? Chest Pain Active ? History Lichen Sclerosus Et Atrophicus Active ? ? Procedures Date Name Performed by ? ? Cardiac Catheterization Information not available Notes: LHC 06/18 LHC/RHC ? Adenoidectomy Information not avai lable ? Appendectomy Information not avai lable ? Hysterectomy Information not avai lable ? Tonsillectomy Information not avai lable Vaccine List None recorded. Social History Tobacco Smoking Status Former Smoker Notes: QUIT 8 Animal exposure? N What is your level of alcohol Occasional Notes: b eer or wine on special consumption? occasions or holiday s only Live alone or with others? alone Are you currently employed? N Do you have any pets? N Are you blind or do you have N Notes: gl asses difficulty seeing? What is your code status? 0 Are you deaf or do you have serious N difficulty hearing? What was the date of your most 06/17/2020 recent tobacco screening? What is your level of caffeine Occasional Notes: 1 cup and 1-2 soda QD consumption? What is your occupation? Retired What is your exercise level? 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 Family History Relation Problem Onset Age of Age Notes Father Abdominal aortic aneurysm (No Information) N/A (No Notes) Father Coronary arteriosclerosis (No Information) N/A (No Notes) Father Hyperlipidemia (No Information) N/A (No Notes ) Functional Status No Impairment. Past Encounters 06/17/2021 Javid Perez MD: [address] [place] [address], Ph. 06/16/2021 Javid Perez MD: [address] [place] [address], Ph. History of Present Illness None recorded. Review of Systems None recorded. Physical Exam None recorded.
--- OUTSIDE RECORDS SUMMARY | 2021-09-03 16:43 | XMS_ITS | Encounter Summary ---
:1945 Author Care Team Providers Name Role Phone Mariajose Cuenca Primary Care Provider [phone] Javid Perez MD Extrusion Die Repair Manager [phone] Annia Cassidy NP Sleep Medicine Unavailable Reason for Visit None recorded. Assessment and Plan Assessment Note Called pt to check on weight and B/P . Her weight at home today was 253.5 which is 9.5 pounds less then last week . Patient states she is doing better on the Toresmide 20 Mg then she was on the lasix . Her B/ P today before medication was 152/88 and after medication was 140/78. Per s we will up her Entresto to the next level 49 mg-51 Mg and recheck labs and B/P in two weeks . Discussion Note: None recorded.Patient educational handouts: [...] Code Code System Name Reaction Severity Onset 529616 RxNorm Augmentin Hives Moderate to Severe ? 8840 RxNorm Codeine ? ? ? 3811 RxNorm Lactose ? ? ? 3975 RxNorm Morphine Anaphylaxis Severe ? 3642 RxNorm Oxycodone ? ? ? 9421 RxNorm Pentazocine ? ? ? 729409 RxNorm Varenicline ? ? ? Notes: No [...] your exercise level? 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 Family History Relation Problem Onset Age of Age Notes Father Abdominal aortic aneurysm (No Information) N/A (No Notes) Father Coronary arteriosclerosis (No Information) N/A (No Notes) Father Hyperlipidemia (No Information) N/A (No Notes ) Functional Status No Impairment. Past Encounters 06/21/2021 Javid Perez MD: [address] [place] [address], Ph. 06/17/2021 Javid Perez MD: [address] [place] [address], Ph. 06/16/2021 Javid Perze MD: [address] [place] [address], Ph. History of Present Illness None recorded. Review of Systems None recorded. Physical Exam None recorded.
--- OUTSIDE RECORDS SUMMARY | 2021-09-03 16:43 | XMS_ITS ---
:1945 Author Care Team Providers Name Role Phone TAMARA CASSIDY NP Sleep Medicine Unavailable JAVID TRAORE MD Law Firm Administrator [phone] SANDY WARD DO Primary Care Provider [phone] Allergies Code Code System Name Reaction Severity Status Onset 507389 RxNorm Augmentin Hives Moderate to Severe Active ? 2670 RxNorm Codeine ? ? Active ? 3811 RxNorm Lactose ? ? Active ? 0265 RxNorm Morphine Anaphylaxis Severe Active ? 5972 RxNorm Oxycodone ? ? Active ? 800 RxNorm Pentazocine ? ? Active ? [id number] RxNorm Varenicline ? ? Active ? Notes: No seafood/contrast allergy. Medications Name Status Start Date Stop Date ? ? albuterol sulfate HFA 90 mcg/actuation aerosol inhaler Active ? Not available INHALE 2 PUFFS EVERY 6 HOURS NEEDED FOR SHORTNESS OF BREATH OR WHEEZING, TRAIL TWO TIMES A DAY FOR 1 WEEK FOR FOR SHORTNESS OF BREATH aspirin 81 mg tablet,delayed release Active ? Not available Take 1 tablet every day by oral route. atorvastatin 40 mg tablet Active ? Not av ailable Take 1 tablet every day by oral route at bedtime. carvedilol 25 mg tablet Completed ? 08/10/19 22 Take 1 tablet twice a day by oral route. colchicine 0.6 mg tablet Completed ? 021 TAKE 1 TABLET BY MOUTH TWICE DAILY doxycycline monohydrate 100 mg capsule Completed ? 01/06/2020 Entresto 24 mg-26 mg tablet Completed ? 06/09 TAKE ONE TABLET BY MOUTH TWICE A DAY Entresto 49 mg-51 mg tablet Completed ? 07/09 Take 1 tablet twice a day by oral route. Entresto 97 mg-103 mg tablet Active ? Not available Take 1 tablet twice a day by oral route. famotidine 40 mg tablet Active ? Not avai lable TAKE 1 TABLET BY MOUTH AT BEDTIME TO HELP WITH MORNING NAUSEA/R EFLUX Farxiga 10 mg tablet Active ? Not availab le Take 1 tablet every day by oral route. Fish Oil Completed ? 05/03/2021 QD Flovent HFA 110 mcg/actuation aerosol inhaler Completed 04/23/2017 1 Puff(s): bid - twice daily furosemide 20 mg tablet Completed ? 01/06/20 20 furosemide 40 mg tablet Completed ? 06/18/19 22 Take 1 tablet every day by oral route. halobetasol propionate 0.05 % topical cream Active ? Not available APPLY A THIN LAYER TO THE AFFECTED AREA (S) BY TOPICAL ROUTE ONCE DAILY DO NOT EXCEED 50 GRAMS PER WEEK OR 2 WEEKS DURATION halobetasol propionate 0.05 % topical ointment Active ? Not available APPLY TINY AMOUNT TO VULVAR TWO TIMES A DAY FOR 2 WEEKS THEN DAILY FOR 2 WEEKS THEN TWICE WEEKLY ibuprofen 600 mg tablet Active ? Not avai lable TAKE ONE TABLET BY MOUTH THREE TIMES A DAY NEEDED isosorbide mononitrate ER 30 mg tablet,extended release 24 hr Co mpleted ? 04/22/2021 TAKE ONE TABLET BY MOUTH EVERY DAY isosorbide mononitrate ER 60 mg tablet,extended Active ? Not available release 24 hr Jardiance 10 mg tablet Completed ? 2 Take 1 tablet every day by oral route. levofloxacin 500 mg tablet Completed ? 01/05 levothyroxine 25 mcg tablet Completed ? 12/10 levothyroxine 50 mcg tablet Active ? Not available TAKE ONE TABLET BY MOUTH EVERY DAY losartan 25 mg tablet Completed ? 04/22/2021 meclizine 25 mg tablet Active ? Not avail able TAKE 1/2 TO 1 TABLET BY MOUTH THREE TIMES A DAY NEEDED FOR D IZZINESS meloxicam 15 mg tablet Active ? Not avail able TAKE 1 TABLET BY MOUTH DAILY MAX DAILY DOSE 15MG nitrofurantoin monohydrate/macrocrystals 100 mg Completed ? 01/06/2020 capsule nitroglycerin 0.4 mg sublingual tablet Active ? Not available PLACE ONE TABLET UNDER THE TONGUE EVERY 5 MINUTES FOR UP TO 3 DOSES NEEDED FOR CHEST PAIN. IF CHEST PAIN STILL PERSISTS CONTACT 911 omeprazole 20 mg capsule,delayed release Completed ? 01/06/2020 ondansetron 4 mg disintegrating tablet Completed ? 01/06/2020 pantoprazole 40 mg tablet,delayed release Active ? Not available TAKE ONE TABLET BY MOUTH TWICE A DAY potassium chloride ER 20 mEq tablet,extended release Active ? Not available Take 1 tablet every day by oral route. Pravachol 80 mg tablet Completed 04/06/2012 8 1 Tablet: qd - daily Prilosec OTC 20 mg tablet,delayed release Completed 201104/23/[address]: qd - daily ropinirole 0.5 mg tablet Completed ? 020 ropinirole 1 mg tablet Completed ? 0 ropinirole 2 mg tablet Completed ? 2 TAKE 1 TABLET BY MOUTH ONE TO THREE HOURS BEFORE BEDTIME ropinirole 3 mg tablet Active ? Not avail able TAKE ONE TABLET BY MOUTH 1-3 HOURS BEFORE BEDTIME (STOP 2MG) sertraline 25 mg tablet Active ? Not avai lable TAKE 1 TABLET BY MOUTH DAILY sucralfate 1 gram tablet Active ? Not denice ilable TAKE 1 TABLET BY MOUTH DIRECTED BEFORE MEALS AND AT BEDTIME torsemide 20 mg tablet Active ? Not avail able Take 2 tablets every day by oral route. take 2 tablets in the morning to equal 40 MG tramadol 50 mg tablet Active ? Not availa ble TAKE ONE TABLET BY MOUTH TWICE A DAY NEEDED FOR PAIN triamcinolone acetonide 0.5 % topical ointment Active ? Not available APPLY TINY AMOUNT TO VULVA TWO TIMES A DAY FOR 2 WEEKS THEN DAILY FOR 2 WEEKS THEN TWICE WEEKLY Vitamin D3 Active ? Not available 1 tablet daily Problems Name Status Onset Date Source ? [...] lable ? Tonsillectomy Information not avai lable 04/13/2021 US, Echocardiogram, Transthoracic, [facility] Radiology (Internal) Complete [address] [place] [address] (Work Place) Results Lab Results Date Name Specimen Result Interpretation Description Value Range Status Address ? 07/06/2021 CBC W/ Auto BLD ? Wbc 7.0 5.0-10.0 Final [place] Diff 10*3/uL 10*3/uL [facility] (Internal) : [address] ? ? BLD Low Rbc 3.89 4.10-5.30 Final [place] 10*6/uL 10*6/uL [facility] (Internal) : [address] t ? ? BLD ? Hgb 12.0 12.0-16.0 Final [place] g/dL g/dL [facility] L ab (Internal) : [address] t ? ? BLD Low Hct 36.6 % 37.0-47.0 Final [facility] L ab (Internal) : [address] t ? ? BLD ? Mcv 94.1 fL 80.0-96.0 Final [facility] L ab (Internal) : [address] ? ? BLD ? Mch 30.8 pg 26.0-32.0 Final [facility] (Internal) : [address] t ? ? BLD ? Mchc 32.8 31.0-35.0 Final [place] g/dL g/dL [facility] L ab (Internal) : [address] t ? ? BLD ? Rdw 14.2 % 11.5-14.5 Final [facility] L ab (Internal) : [address] t ? ? BLD ? Plt 253 130-450 Final [place] 10*3/uL 10*3/uL [facility] L ab (Internal) : [address] ? ? BLD ? Anc 3.60 ? Final [place] 10*3/uL [facility] L ab (Internal) : [address] t ? ? BLD ? Nlr 1.47 0.00-3.20 Final [facility] L ab (Internal) : [address] t ? ? BLD ? Neutro 51.6 % 40.0-75.0 Final [facility] L ab (Internal) : [address] ? ? BLD ? Lymph 35.2 % 20.0-50.0 Final [facility] [address] ? ? BLD High [place] 10.5 % 2.0-10.0 Final [facility] : [address] ? ? BLD ? Eos 2.2 % 1.0-6.0 % Final [facility] (Internal) : [address] ? ? BLD ? Baso 0.4 % 0.0-1.0 % Final [facility] (Internal) : [address] ? ? BLD ? Ig 0.1 % 0.0-0.9 % Final [facility] (Internal) : [address] 07/06/2021 BNP (B-type S ? Nt-bnp 70 pg/mL 0-450 Final [place] Natriuretic pg/mL Count ry Peptide), Hospita l Lab Prohormone (Inter nal): N-terminal, [address], [place] Immunoassay, Blood 07/06/2021 Renal S High g/r 115 74-106 Final [place] Function mg/dL mg/dL Country Panel, Serum Hosp ital Lab (Internal) : [address] ? ? S ? Bun 14 mg/dL 7-18 Final [place] mg/dL [facility] (Internal) : [address] t ? ? S High Crea 1.4 0.6-1.0 Final [facility] mg/dL mg/dL [facility] ([facility] : [address] t ? ? S ? Ca 9.2 8.5-10.1 Final [facility] mg/dL mg/dL [facility] ([facility] : [address] ? ? S Low Phos 2.3 2.6-4.7 Final [facility] mg/dL mg/dL [facility] (Internal) : [address] ? ? S ? Na 143 136-145 Final [facility] mmol/L mmol/L [facility] (Internal) : [address] ? ? S Low K 2.8 3.5-5.1 Final [facility] mmol/L mmol/L [facility] (Internal) : [address] t ? ? S ? Cl 101 98-107 Final [facility] mmol/l mmol/l [facility] (Internal) : [address] t ? ? S High Tco2 36.9 21.0-32.0 Final [facility] mmol/L mmol/L [facility] (Internal) : [address] t ? ? S ? Alb 3.4 g/dL 3.4-5.0 Final [facility] g/dL [facility] ([facility] : [address] ? ? S Low GFR (Calc) 36 >89 Final [facility] (Internal) : [address] 07/06/2021 BMP, Serum or S High g/r 116 74-106 Final [facility] Plasma mg/dL mg/dL [facility] (Internal) : [address] t ? ? S ? Bun 15 mg/dL 7-18 Final [facility] mg/dL [facility] ([facility]) : [address] t ? ? S High Crea 1.4 0.6-1.0 Final [facility] mg/dL mg/dL [facility] (Internal) : [address] t ? ? S ? Ca 9.3 8.5-10.1 Final [facility] mg/dL mg/dL [facility] (Internal) : [address] t ? ? S ? Na 145 136-145 Final [facility] mmol/L mmol/L [facility] ([facility]) : [address] t ? ? S Low K 2.9 3.5-5.1 Final [facility] mmol/L mmol/L [facility] ([facility]) : [address] t ? ? S ? Cl 101 98-107 Final [facility] mmol/l mmol/l [facility] (Internal) : [address] t ? ? S High Tco2 37.1 21.0-32.0 Final [facility] mmol/L mmol/L [facility] ([facility]) : [address] 07/06/2021 BNP (B-type S ? Nt-bnp 73 pg/mL 0-450 Final [facility] Natriuretic pg/mL Count ry Peptide), Hospita l Lab Prohormone (Inter nal): N-terminal, [address], [address] Immunoassay, Blood 07/06/2021 Hepatic S ? Tbil 0.40 0.20-1.00 Final No rth Function mg/dL mg/dL [facility] Panel, Serum Hosp ital Lab (Internal) : [address] t ? ? S ? Dbil 0.11 0.00-0.20 Final [place] mg/dL mg/dL [facility] (Internal) : [address] t ? ? S ? Alp 87 U/L 46-116 Final [place] U/L [facility] L ab (Internal) : [address] ? ? S ? Alt (Sgpt) 33 U/L 14-59 U/L Final No rth [facility] L ab (Internal) : [address] ? ? S ? Ast (Sgot) 18 U/L 15-37 U/L Final No rth [facility] (Internal) : [address] t ? ? S ? Ggt 27 U/L 5-55 U/L Final [facility] L ab (Internal) : [address] t ? ? S ? Tp 6.8 g/dL 6.4-8.2 Final [place] g/dL [facility] L ab (Internal) : [address] ? ? S ? Alb 3.4 g/dL 3.4-5.0 Final [place] g/dL [facility] (Internal) : [address] 06/17/2021 CBC W/ Auto BLD ? Wbc 9.1 5.0-10.0 Final [place] Diff 10*3/uL 10*3/uL [facility] : [address] ? ? BLD ? Rbc 4.35 4.10-5.30 Final [place] 10*6/uL 10*6/uL [facility] (Internal) : [address] ? ? BLD ? Hgb 13.5 12.0-16.0 Final [place] g/dL g/dL [facility] (Internal) : [address] ? ? BLD ? Hct 40.9 % 37.0-47.0 Final [facility] (Internal) : [address] [place] ? ? BLD ? Mcv 94.0 fL 80.0-96.0 Final [facility] (Internal) : [address] [place] ? ? BLD ? Mch 31.0 pg 26.0-32.0 Final [place] pg [facility] (Internal) : [address] [place] ? ? BLD ? Mchc 33.0 31.0-35.0 Final [place] g/dL g/dL [facility] (Internal) : [address] [place] ? ? BLD ? Rdw 13.5 % 11.5-14.5 Final [facility] (Internal) : [address] [place] ? ? BLD ? Plt 283 130-450 Final [place] 10*3/uL 10*3/uL [facility] (Internal) : [address] [place] ? ? BLD ? Anc 6.32 ? Final [place] 10*3/uL [facility] (Internal) : [address] [place] ? ? BLD ? Nlr 3.02 0.00-3.20 Final [facility] L ab (Internal) : [address] [place] ? ? BLD ? Neutro 69.5 % 40.0-75.0 Final [facility] (Internal) : [address] [place] ? ? BLD ? Lymph 22.9 % 20.0-50.0 Final [facility] (Internal) : [address] [place] ? ? BLD ? [place] 6.9 % 2.0-10.0 Final [facility] (Internal) : [address] [place] ? ? BLD Low Eos 0.1 % 1.0-6.0 % Final [facility] (Internal) : [address] [place] ? ? BLD ? Baso 0.1 % 0.0-1.0 % Final [facility] (Internal) : [address] [place] ? ? BLD ? Ig 0.5 % 0.0-0.9 % Final [facility] ([facility]) : [address] 06/17/2021 Renal S High g/r 115 74-106 Final [facility] Function mg/dL mg/dL [facility] Panel, Serum Hosp ital Lab (Internal) : [address] ? ? S High Bun 25 mg/dL 7-18 Final [facility] mg/dL [facility] ([facility] : [address] ? ? S High Crea 1.3 0.6-1.0 Final [facility] mg/dL mg/dL [facility] ([facility]) : [address] t ? ? S ? Ca 9.0 8.5-10.1 Final [facility] mg/dL mg/dL [facility] (Internal) : [address] ? ? S ? Phos 4.1 2.6-4.7 Final [facility] mg/dL mg/dL [facility] (Internal) : [address] ? ? S ? Na 141 136-145 Final [facility] mmol/L mmol/L [facility] (Internal) : [address] ? ? S Low K 3.4 3.5-5.1 Final [place] mmol/L mmol/L [facility] (Internal) : [address] ? ? S ? Cl 99 98-107 Final [facility] mmol/l mmol/l [facility] (Internal) : [address] ? ? S High Tco2 33.3 21.0-32.0 Final [facility] mmol/L mmol/L [facility] (Internal) : [address] ? ? S ? Alb 3.6 g/dL 3.4-5.0 Final [facility] g/dL [facility] (Internal) : [address] ? ? S Low GFR (Calc) 42 >89 Final [facility] (Internal) : [address] 06/17/2021 BMP, Serum or S High g/r 115 74-106 Final [facility] Plasma mg/dL mg/dL [facility] (Internal) : [address] ? ? S High Bun 25 mg/dL 7-18 Final [facility] mg/dL [facility] (Internal) : [address] ? ? S High Crea 1.3 0.6-1.0 Final [facility] mg/dL mg/dL [facility] (Internal) : [address] ? ? S ? Ca 9.0 8.5-10.1 Final [facility] mg/dL mg/dL [facility] (Internal) : [address] ? ? S ? Na 141 136-145 Final [place] mmol/L mmol/L [facility] (Internal) : [address] ? ? S Low K 3.4 3.5-5.1 Final [facility] mmol/L mmol/L [facility] (Internal) : [address] ? ? S ? Cl 99 98-107 Final [facility] mmol/l mmol/l [facility] (Internal) : [address] ? ? S High Tco2 33.3 21.0-32.0 Final [facility] mmol/L mmol/L [facility] (Internal) : [address] 06/17/2021 Lipid Panel, S High Chol 269 0-200 Final [facility] Serum mg/dL mg/dL [facility] (Internal) : [address] ? ? S ? Trig 64 mg/dL 0-150 Final [facility] mg/dL [facility] (Internal) : [address] ? ? S High Hdl 120 40-60 Final [facility] mg/dL mg/dL [facility] (Internal) : [address] ? ? S High Ldl 136 0-130 Final [facility] mg/dL mg/dL [facility] (Internal) : [address] 06/17/2021 Hepatic S ? Tbil 0.50 0.20-1.00 Final No rth Function mg/dL mg/dL [facility] Panel, Serum Hosp ital Lab (Internal) : [address] ? ? S ? Dbil 0.15 0.00-0.20 Final [facility] mg/dL mg/dL [facility] (Internal) : [address] ? ? S ? Alp 68 U/L 46-116 Final [place] U/L [facility] (Internal) : [address] ? ? S ? Alt (Sgpt) 45 U/L 14-59 U/L Final No rth [facility] L ab (Internal) : [address] ? ? S ? Ast (Sgot) 20 U/L 15-37 U/L Final No rth [facility] L ab (Internal) : [address] ? ? S ? Ggt 37 U/L 5-55 U/L Final [facility] L ab (Internal) : [address] ? ? S ? Tp 7.1 g/dL 6.4-8.2 Final [place] g/dL [facility] L ab (Internal) : [address] ? ? S ? Alb 3.6 g/dL 3.4-5.0 Final [place] g/dL [facility] (Internal) : [address] 01/07/2020 EKG Done by ? No ? ? ? N orth Lab observation Count ry recorded. Hospita l Lab (Internal) : [address] Past Encounters 08/09/2021 Javid Traore MD: [address], [place] [address], Ph. 07/21/2021 Javid Traore MD: [address], [place] [address], Ph. 07/05/2021 Javid Traore MD: [address], [place] [address], Ph. 06/21/2021 Javid Traore MD: [address], [place] [address], Ph. 06/17/2021 Javid Traore MD: [address], [place] [address], Ph. 06/16/2021 Javid Traore MD: [address], [place] [address], Ph. 05/03/2021 Snoring; Restless Legs Tamara Cassidy NP: [address] [place] [address], Ph. 04/22/2021 Javid Traore MD: [address] [place] [address], Ph. 04/15/2021 Javid Traore MD: [address] [place] [address], Ph. 04/13/2021 Javid Traore MD: [address] [place] [address], Ph. 06/17/2020 Javid Traore MD: [address] [place] [address], Ph. Social History Tobacco Smoking Status Former Smoker Notes: QUIT 8 Vaccine List None recorded. Plan of Care Reminders Provider Appointments None recorded. ? ? Lab None recorded. ? ? Referral None recorded. ? ? Procedures None recorded. ? ? Surgeries None recorded. ? ? Imaging None recorded. ? ? Vitals 05/03/2021 12:30PM New Patient 45 Height Weight BMI Blood Pressure 160.02 cm 115.85 kg 45.2 kg/m2 159/97 mm[Hg] 04/22/2021 10:00AM Office 15 Height 160.02 cm 04/13/2021 11:00AM Follow Up 30 Height Weight BMI Blood Pressure 160.02 cm 116 kg 45.3 kg/m2 149/77 mm[Hg] 06/17/2020 01:45PM Follow Up 30 Height Weight BMI Blood Pressure 160.02 cm 122/69 mm[Hg] 01/06/2020 10:00AM Follow Up 30 Height Weight BMI Blood Pressure 160.02 cm 110 kg 43 kg/m2 122/84 mm[Hg]
--- OUTSIDE RECORDS SUMMARY | 2021-09-03 16:43 | XMS_ITS | Encounter Summary ---
:1945 Author Care Team Providers Name Role Phone Mariajose Cuenca Primary Care Provider [phone] Javid Perez MD Cafeteria Team Leader [phone] Annia Cassidy NP Sleep Medicine Unavailable Reason for Visit None recorded. Assessment and Plan Assessment Note Called patient today to do a B/P check 135/79 weight of 253,per will up her Entresto to 97 mg-103 mg and we will recheck in 2 weeks . Discussion Note: None recorded.Patient educational [...] Code Code System Name Reaction Severity Onset 661116 RxNorm Augmentin Hives Moderate to Severe ? 2670 RxNorm Codeine ? ? ? 5211 RxNorm Lactose ? ? ? 2871 RxNorm Morphine Anaphylaxis Severe ? 8514 RxNorm Oxycodone ? ? ? 8001 RxNorm Pentazocine ? ? ? 365120 RxNorm Varenicline ? ? ? Notes: No [...] your exercise level? 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 Family History Relation Problem Onset Age of Age Notes Father Abdominal aortic aneurysm (No Information) N/A (No Notes) Father Coronary arteriosclerosis (No Information) N/A (No Notes) Father Hyperlipidemia (No Information) N/A (No Notes ) Functional Status No Impairment. Past Encounters 07/21/2021 Javid Perez MD: [address] [place] [address], Ph. 07/05/2021 Javid Perez MD: [address] [place] [address], Ph. 06/21/2021 Javid Perez MD: [address] [place] [address], Ph. History of Present Illness None recorded. Review of Systems None recorded. Physical Exam None recorded.
--- OUTSIDE RECORDS SUMMARY | 2021-09-03 16:43 | XMS_ITS | Encounter Summary ---
:1945 Author Care Team Providers Name Role Phone Mariajose Cuenca Primary Care Provider [phone] Javid Perez MD Raw Sampler [phone] Annia Cassidy NP Sleep Medicine Unavailable Reason for Visit None recorded. Assessment and Plan Assessment Note Pt called today for her nurse visit, sh e stated that her B/P was 135/104 with a pulse of [address] Perez she will ta ke Carvedilol 25 MG BID. We will recheck her numbers and she will get her labs done t his week . Her weight is down another pound to 252.0 . Discussion Note: None recorded.Patient educational handouts: [...] Code Code System Name Reaction Severity Onset 010029 RxNorm Augmentin Hives Moderate to Severe ? 7410 RxNorm Codeine ? ? ? 9965 RxNorm Lactose ? ? ? 1364 RxNorm Morphine Anaphylaxis Severe ? 4014 RxNorm Oxycodone ? ? ? 1861 RxNorm Pentazocine ? ? ? 174554 RxNorm Varenicline ? ? ? Notes: No [...] ? Cardiac Catheterization Information not available Notes: C 06/18 LHC/RHC ? Adenoidectomy Information not avai [...] your exercise level? 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 Family History Relation Problem Onset Age of Age Notes Father Abdominal aortic aneurysm (No Information) N/A (No Notes) Father Coronary arteriosclerosis (No Information) N/A (No Notes) Father Hyperlipidemia (No Information) N/A (No Notes ) Functional Status No Impairment. Past Encounters 07/05/2021 Javid Perez MD: [address] [place] [address], Ph. 06/21/2021 Javid Perez MD: [address] [place] [address], Ph. 06/17/2021 Javid Perez MD: [address] [place] [address], Ph. 06/16/2021 Javid Perez MD: [address] [facility] [address], Ph. History of Present Illness None recorded. Review of Systems None recorded. Physical Exam None recorded.
--- OUTSIDE RECORDS SUMMARY | 2021-09-03 16:43 | XMS_ITS | Encounter Summary ---
:1945 Author Care Team Providers Name Role Phone Mariajose Cuenca Primary Care Provider [phone] Javid Perez MD Surgical Services Manager [phone] Annia Cassidy NP Sleep Medicine Unavailable Reason for Visit Telehealth - Audio/Phone; BP check Assessment and Plan Assessment Note Patient was called for a telephone BP c heck today. Weight has been stable and recent at home BP was 139/78, pulse [address] Perez we will do another phone BP check in about a month and patient is to start Jardiance 10 mg QD, depending on affordability. Patient in agreement with plan. Discussion Note: None recorded.Patient educational handouts: No [...] Code Code System Name Reaction Severity Onset 457322 RxNorm Augmentin Hives Moderate to Severe ? 6680 RxNorm Codeine ? ? ? 7527 RxNorm Lactose ? ? ? 8310 RxNorm Morphine Anaphylaxis Severe ? 6823 RxNorm Oxycodone ? ? ? 2823 RxNorm Pentazocine ? ? ? 238193 RxNorm Varenicline ? ? ? Notes: No [...] ? Cardiac Catheterization Information not available Notes: [facility] 06/18 [facility] ? Adenoidectomy Information not avai [...] your exercise level? 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 Family History Relation Problem Onset Age of Age Notes Father Abdominal aortic aneurysm (No Information) N/A (No Notes) Father Coronary arteriosclerosis (No Information) N/A (No Notes) Father Hyperlipidemia (No Information) N/A (No Notes ) Functional Status No Impairment. Past Encounters 08/09/2021 Javid Perez MD: [address] [place] [address], Ph. 07/21/2021 Javid Perez MD: [address] [place] [address], Ph. History of Present Illness Note: This visit was performed virtually an audio connection via phone. As such, the physical examinationis necessarily limited. The risks and benefits of the use of this alternative platform were discussed with the patient and or guardian and verbal consent was obtained. My assessment and plans are basedon such examination. Further evaluation, including in-person examination, may be needed depending onthe response to management or today's recommendation.

The patient is home.

The provider is {{home in the office}}.

The patient has been positively identified and has consented to a phone visit.
I have determined that it was clinically appropriate to deliver health care services to the patient by audio-only telephone.

The time spent in counseling and coordination of care was

Patient is receiving audio-only care due to: {{Broadband Access / Reliability Concerns Technical Barrier Other than Broadband Patient Comfort or Preference Clinical Indication Other:}}
Review of Systems None recorded. Physical Exam None recorded.
--- OUTSIDE RECORDS SUMMARY | 2021-09-03 16:44 | XMS_ITS | Encounter Summary ---
:1945 Author Care Team Providers Name Role Phone Mariajose Cuenca Primary Care Provider [phone] Javid Perez MD Certified Social Workers In Health Care [phone] Annia Cassidy NP Sleep Medicine Unavailable Reason for Visit None recorded. Assessment and Plan Assessment Note Pt called and stated that her feet were lie footballs and her legs were very swollen as well , she also stated that her face and neck had fluid as well. Per Dr. Perez we had her come into [facility] and he ordered IV lasix . Pt came in weighing 262.5 and when she left she weighed 258.0 . Her vitals remained stable at 140/&8 with a pulse of 69 o2 97 on room air . we will repeat this tomorrow at 8 am . Discussion Note: None recorded.Patient educational handouts: [...] Code Code System Name Reaction Severity Onset 271952 RxNorm Augmentin Hives Moderate to Severe ? 7910 RxNorm Codeine ? ? ? 9001 RxNorm Lactose ? ? ? 8944 RxNorm Morphine Anaphylaxis Severe ? 3181 RxNorm Oxycodone ? ? ? 5521 RxNorm Pentazocine ? ? ? 096836 RxNorm Varenicline ? ? ? Notes: No [...] your exercise level? 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 Family History Relation Problem Onset Age of Age Notes Father Abdominal aortic aneurysm (No Information) N/A (No Notes) Father Coronary arteriosclerosis (No Information) N/A (No Notes) Father Hyperlipidemia (No Information) N/A (No Notes ) Functional Status No Impairment. Past Encounters 06/16/2021 Javid Perez MD: [address] [facility] [place] [address], Ph. History of Present Illness None recorded. Review of Systems None recorded. Physical Exam None recorded.
[2021-09-03 18:21] LABS: Lab Add On Test DONE
[2021-09-03 18:49] LABS: NT-proBNP 107 pg/mL (<300)
[2021-09-03 19:32] LABS: Lab Add On Test DONE
[2021-09-03 19:55] LABS: TSH (W/Ref FT4) 3.95 uIU/mL (0.36-3.74)
[2021-09-03 20:22] LABS: FREE T4 1.16 ng/dL (0.76-1.46)
== END 2021-09-03 12:45 | disposition home or self-care (01) ==
LOC: LBO 16:42
PROVIDERS: PCP Student in an Organized Health Care Education/Training Program; Visit Provider Student in an Organized Health Care Education/Training Program
DX: E03.9 Hypothyroidism, unspecified (principal); I50.9 Heart failure, unspecified; N28.9 Disorder of kidney and ureter, unspecified; R79.89 Other specified abnormal findings of blood chemistry
CPT/HCPCS: 36415; 80053; 83880; 84439; 84443

== ENCOUNTER 2021-09-09 16:27 | Inpatient (IN) | payer MEDICARE, SELFPAY ==
[2021-09-09] VITALS (44 sets, daily range): BP systolic 93–130; BP diastolic 62–110; PULSE 72–106; RESP 11–30; TEMP 36–36.2; O2SAT 83–100
--- NOTE | 2021-09-09 16:15 | RT.EKG_ITS ---
APPROVED REPORT Exam: Resting ECG Reason for Exam: HYPOXIC Patient Location: E HR:92 bpm ECG Measurements Heart Rate 92 AXIS LA 172 P 35 QRSd 102 QRS 41 QT 376 T -12 QTc 466 Conclusion Sinus rhythm...normal P axis, V-rate 60- 99
--- NOTE | 2021-09-09 16:45 | DI.RAD_ITS ---
Exam(s) XR CHEST 2V PA LATERAL EXAM: XR CHEST 2V PA LATERAL CLINICAL HISTORY: sob, EDEMA TECHNIQUE: 2D digital imaging was performed of the chest. Two images were obtained. PA and lateral views were obtained. COMPARISON: CR XR CHEST 2V PA LATERAL from 02/10/2021 FINDINGS: MEDIASTINUM: Normal. HEART: Normal. PULMONARY VASCULATURE: Normal. LUNGS: Clear. The lungs are hyperinflated suggesting underlying COPD. PLEURAL SPACE: No pleural effusion or pneumothorax. BONE:Within normal limits for the patient's age. OTHER FINDINGS:Normal. IMPRESSION: No acute pulmonary findings. DATA REPOSITORY: RADIATION DOSE DELIVERED:
--- NOTE | 2021-09-09 16:58 | W.ED.GENAD ---
Discharge Plan Disposition Patient Disposition: [facility] INPATIENT Condition: Stable Discharge Details Clinical Impression: Hypoxia, Edema of both lower legs Primary Care Provider: Mariajose Cuenca ED Provider: Kole Higgins Home Meds and New Rx's Prescriptions: No Action triamcinolone acetonide 0.5 % ointment 1 applic TP BID Qty: 15 4RF Rx Instructions: apply tiny amount to vulva twice daily for 2weeks then daily for two weeks then twice weekly. nitroglycerin 0.4 mg tablet, sublingual 0.4 mg sublingual Q5M PRN (Reason: chest pain) Qty: 30 1RF Rx Instructions: do not exceed 3 doses per episode halobetasol propionate 0.05 % ointment 1 applic topical BID Qty: 50 4RF Rx Instructions: apply tiny amount to vulvar bid for 2weeks then daily for 2weeks then twice weekly clotrimazole 1 % ointment 1 applic topical BID 14 Days Qty: 90 1RF Rx Instructions: apply to lower abdomen and upper thigh rash ammonium lactate 12 % cream 1 applic topical BID Qty: 385 1RF Rx Instructions: Trial for dry skin, edema Entresto 49-51 mg tablet 1 tab PO BID atorvastatin 40 mg tablet 40 mg PO DAILY isosorbide mononitrate 30 mg tablet extended release 24 hr 60 mg PO DAILY Label Comments: Pt states she takes 60mg daily (Dr. Perez - Cardiology) No [facility] hosp. 04/2021 EO Stiolto Respimat 2.5-2.5 mcg/actuation mist 2 puff inhalation DAILY Qty: 4 5RF gabapentin 300 mg capsule See Rx Instructions PO BID PRN (Reason: neuralgia) Qty: 60 1RF Rx Instructions: 300mg orally twice a day PRN; may hold daytime dose for drowsiness hydrocodone-acetaminophen 5-325 mg tablet 1 tab PO BID MDD 10mg hydrocodone PRN (Reason: pain) Qty: 10 0RF Rx Instructions: For severe hip pain, short-term torsemide 20 mg tablet See Rx Instructions PO DAILY MDD 60mg Qty: 90 1RF Rx Instructions: 40mg, 60mg for severe edema as per discussion with Cardiology or PCP orally daily; Increased dose for diuresis; may consider 60mg for severe edema. spironolactone 25 mg tablet 25 mg PO DAILY Qty: 30 0RF Rx Instructions: Trial for severe edema cholecalciferol (vitamin D3) [Vitamin D3] 2,000 UNIT capsule 2,000 unit PO DAILY Label Comments: 01/18/17-now takes 5000U/pps meclizine 25 mg tablet 12.5 - 25 mg PO TID PRN (Reason: dizziness) Qty: 30 4RF levothyroxine 50 mcg tablet 50 mcg PO DAILY Qty: 90 1RF Rx Instructions: take one tablet daily ropinirole 3 mg tablet 3 mg PO QHS Qty: 90 1RF Rx Instructions: 03-16-21 Increased dose/ take one tablet 1-3 hours before bedtime pantoprazole 40 mg tablet,delayed release (DR/EC) 40 mg PO BID Qty: 60 2RF sucralfate 100 mg/mL suspension 10 ml PO QACHS Qty: 420 1RF Rx Instructions: Trial for break-through reflux celecoxib 200 mg capsule 200 mg PO BID Qty: 60 0RF Hold Instructions: CHF levothyroxine 75 mcg tablet 75 mcg PO DAILY Qty: 90 1RF Rx Instructions: Increase based on 09/03/21 labs aspirin [Aspir-81] 81 MG tablet,delayed release (DR/EC) 81 mg PO DAILY Medical Decision Making <Mateo Dumont MD - Last Filed: 09/09/21 19:39> 75-year-old female presents from home with 2 weeks of progressive lower extremity edema and dyspnea which is primarily exertional. She also has been struggling with some L4-5 back pain and resultant sciatica-like symptoms for which she has been taking hydrocodone. Today she presented to the emergency department due to inability to perform her activities of daily living due to shortness of breath and lower extremity edema. Patient arrives with room air hypoxia approximately 85 to 88%. She is placed on a night monitor, given supplemental oxygen, IV access established, and for laboratory testing and chest x-ray. She has had persistent left sciatic type pain and is given hydrocodone and subsequently parenteral analgesia. Patient's labs reveal a white count of 6, hematocrit 33, platelets 246. Sodium 139 potassium 4.2, chloride 100, BUN 27, creatinine 1.7, GFR of 30. BNP is 47, troponin I less than 50. Chest x-ray reveals hyperinflation, no acute infiltrates or edema appreciated per report. Given the patient's lower extremity edema and hypoxia, must consider PE and D-dimer added to her laboratory profile. Patient will be signed out to Dr Higgins pending lab results and disposition. <Kole Higgins, DO - Last Filed: 09/09/21 22:39> 75-year-old female presents from home with 2 weeks of progressive lower extremity edema and dyspnea which is primarily exertional. She also has been struggling with some L4-5 back pain and resultant sciatica-like symptoms for which she has been taking hydrocodone. Today she presented to the emergency department due to inability to perform her activities of daily living due to shortness of breath and lower extremity edema. Patient arrives with room air hypoxia approximately 85 to 88%. She is placed on a night monitor, given supplemental oxygen, IV access established, and for laboratory testing and chest x-ray. She has had persistent left sciatic type pain and is given hydrocodone and subsequently parenteral analgesia. Patient's labs reveal a white count of 6, hematocrit 33, platelets 246. Sodium 139 potassium 4.2, chloride 100, BUN 27, creatinine 1.7, GFR of 30. BNP is 47, troponin I less than 50. Chest x-ray reveals hyperinflation, no acute infiltrates or edema appreciated per report. Given the patient's lower extremity edema and hypoxia, must consider PE and D-dimer added to her laboratory profile. Patient will be signed out to Dr Higgins pending lab results and disposition. Dr. Higgins's documentation 10:03 PM Case was signed out to me pending D-dimer and subsequent decision for CTA. D-dimer was notably elevated at 1776. CTA was ordered, demonstrates no evidence of pulmonary embolism or aneurysm. There is bronchiectasis, mild bronchial wall thickening suggestive of a component of bronchitis but no infiltrates. No effusion. Patient still remains notably short of breath with any activity or mobility. She does live at home alone and states that she does not even have the energy to get up the stairs to her apartment. Her symptoms have notably worsened over the last few days. Her lower extremities definitely demonstrate bilateral edema roughly +2. However her pro proBNP is only 47. COVID, flu, RSV are negative. There is some redness anteriorly bilaterally on her shins, it is slightly warm, the patient states that this is been there for quite some time. More likely a component of bilateral chronic venous stasis rather than cellulitis. Patient has no fever, white count, bandemia or left shift. Symptoms appearing clinically inconsistent with significant cellulitis clinically at this time. With the patient's persistent oxygen demand, subjective shortness of breath, I do feel that she would benefit from admission, additionally she could get an ultrasound tomorrow for further evaluation of her lower extremities for possible DVT. We will contact the hospitalist for admission. Discussed the case with Dr. Dowell, he agrees with the assessment and plan. He has requested that we start Levaquin antibiotics for potential infection and check blood cultures as well. We will do this. have extensively reviewed the treatment plan with the patient. I have addressed all patient concerns at this time. I have also discussed the plan with the admitting physician and they agree with the current assessment and plan and have agreed to assume responsibility for the patient. All parties demonstrate verbal understanding and agreement with our assessment and plan at this time. The documentation in this chart was dictated using Weeb[employer] dictation software. Please excuse any dictation errors. FINDINGS: Pulmonary arteries: Pulmonary arteries well opacified. No embolism. Aorta: Thoracic aorta without aneurysm or dissection. Atherosclerotic calcium. Lungs: Moderate bronchiectasis and mild bronchial wall thickening. These features are consistent with COPD. Cannot exclude acute bronchitis versus chronic bronchitis. The degree of bronchial wall thickening is slightly greater on current study in comparison with a previous exam 07/01/2021 which suggests a component of acute bronchial inflammation. No peripheral infiltrates or pneumonitis. Posterior lung base scarring. Pleural spaces: No pleural effusion. Heart: Normal heart size. No pericardial effusion. Mild coronary artery atherosclerotic calcium. Lymph nodes: Unremarkable. No enlarged lymph nodes. Diaphragm: Large hiatal hernia. No acute features. A small amount of fluid seen anterior to the hiatal hernia and distal esophagus is noted on series 4, images 28 through 37. Significance of this is uncertain. This was present 07/01/2021 and is essentially stable. 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 This has benign features. Liver: Liver with fatty infiltration. Bones/joints: Degenerative thoracic spine changes. No acute fracture. Soft tissues: Unremarkable. IMPRESSION: 1. Bronchiectasis consistent with COPD. 2. Mild bronchial wall thickening suggesting a component of bronchitis. No peripheral infiltrates. 3. No pleural effusion. 4. No pulmonary arterial embolism evident. 5. Thoracic aorta without aneurysm or dissection. 6. Moderate size hiatal hernia. No acute features. 7. Fatty liver change. Thank you for allowing us to participate in the care of your patient. Dictated and Authenticated by: Demetrius Shah MD 09/09/2021 9:43 PM Eastern Time ([place] & [place]) HPI <Mateo Dumont MD - Last Filed: 09/09/21 19:39> General Mode of arrival: ambulatory. Date/Time Provider Initiated Documentation: 09/09/21 16:39. Limitations to Documentation: no limitations. Information obtained by: patient. History of Present Illness 75 year old F presents to the emergency department with the chief complaint of Shortness of breath, lower extremity edema, chronic back pain, described as moderate, and is localized to the chest. Patient started experiencing this day(s) and it has been intermittent. Rest improves symptom(s), Movement worsens symptoms . Patient notes shortness of breath and other (Left low back pain radiating to buttock); denies chest pain, syncope and weakness. Patient did receive the following treatments prior to arrival, none Related Data Home Medications Medication Instructions Recorded Confirmed cholecalciferol (vitamin D3) 50 2,000 unit PO DAILY 07/01/15 09/09/21 mcg (2,000 unit) capsule (Vitamin D3) aspirin 81 mg tablet,delayed 81 mg PO DAILY 01/12/17 09/09/21 release (Aspir-) meclizine 25 mg tablet 12.5 - 25 mg PO TID PRN dizziness 06/16/20 09/09/21 #30 tabs triamcinolone acetonide 0.5 % 1 applic topical BID #15 grams 08/25/20 09/09/21 topical ointment nitroglycerin 0.4 mg sublingual 0.4 mg sublingual Q5M PRN chest 12/12/20 09/09/21 tablet pain #30 tabs halobetasol propionate 0.05 % 1 applic topical BID #50 grams 01/05/21 09/09/21 topical ointment levothyroxine 50 mcg tablet 50 mcg PO DAILY #90 tabs 03/16/21 09/09/21 ropinirole 3 mg tablet 3 mg PO QHS #90 tabs 03/16/21 09/09/21 isosorbide mononitrate 30 mg 60 mg PO DAILY 05/21/21 09/09/21 tablet,extended release 24 hr pantoprazole 40 mg tablet,delayed 40 mg PO BID #60 tabs 05/27/21 09/09/21 release sucralfate 100 mg/mL oral 10 ml PO QACHS #420 mL 05/27/21 09/09/21 suspension clotrimazole 1 % topical ointment 1 applic topical BID 2 weeks #90 06/17/21 09/09/21 grams atorvastatin 40 mg tablet 40 mg PO DAILY 06/25/21 09/09/21 sacubitril 49 mg-valsartan 51 mg 1 tab PO BID 06/25/21 09/09/21 tablet (Entresto) tiotropium 2.5 mcg-olodaterol 2.5 2 puff inhalation DAILY #4 grams 07/12/21 09/09/21 mcg/actuation mist for inhalation (Stiolto Respimat) ammonium lactate 12 % topical cream 1 applic topical BID #385 grams 07/15/21 09/09/21 celecoxib 200 mg capsule 200 mg PO BID #60 caps 07/30/21 09/09/21 gabapentin 300 mg capsule See Rx Instructions PO BID PRN 09/03/21 09/09/21 neuralgia #60 caps hydrocodone 5 mg-acetaminophen 325 1 tab PO BID PRN pain #10 tabs 09/03/21 09/09/21 mg tablet levothyroxine 75 mcg tablet 75 mcg PO DAILY #90 tabs 09/03/21 09/09/21 spironolactone 25 mg tablet 25 mg PO DAILY #30 tabs 09/03/21 09/09/21 torsemide 20 mg tablet See Rx Instructions PO DAILY #90 09/03/21 09/09/21 tabs Previous Rx's Medication Instructions Recorded meclizine 25 mg tablet 12.5 - 25 mg PO TID PRN dizziness 06/16/20 #30 tabs triamcinolone acetonide 0.5 % 1 applic topical BID #15 grams 08/25/20 topical ointment nitroglycerin 0.4 mg sublingual 0.4 mg sublingual Q5M PRN chest 12/12/20 tablet pain #30 tabs halobetasol propionate 0.05 % 1 applic topical BID #50 grams 01/05/21 topical ointment levothyroxine 50 mcg tablet 50 mcg PO DAILY #90 tabs 03/16/21 ropinirole 3 mg tablet 3 mg PO QHS #90 tabs 03/16/21 pantoprazole 40 mg tablet,delayed 40 mg PO BID #60 tabs 05/27/21 release sucralfate 100 mg/mL oral 10 ml PO QACHS #420 mL 05/27/21 suspension clotrimazole 1 % topical ointment 1 applic topical BID 2 weeks #90 06/17/21 grams tiotropium 2.5 mcg-olodaterol 2.5 2 puff inhalation DAILY #4 grams 07/12/21 mcg/actuation mist for inhalation (Stiolto Respimat) ammonium lactate 12 % topical cream 1 applic topical BID #385 grams 07/15/21 celecoxib 200 mg capsule 200 mg PO BID #60 caps 07/30/21 gabapentin 300 mg capsule See Rx Instructions PO BID PRN 09/03/21 neuralgia #60 caps hydrocodone 5 mg-acetaminophen 325 1 tab PO BID PRN pain #10 tabs 09/03/21 mg tablet levothyroxine 75 mcg tablet 75 mcg PO DAILY #90 tabs 09/03/21 spironolactone 25 mg tablet 25 mg PO DAILY #30 tabs 09/03/21 torsemide 20 mg tablet See Rx Instructions PO DAILY #90 09/03/21 tabs Allergies Allergy/AdvReac Type Severity Reaction Status Date / Time codeine Allergy Severe Anaphylaxsi Verified 09/09/21 16:37 s morphine Allergy Severe Anaphylaxsi Verified 09/09/21 16:37 s oxycodone Allergy Severe Anaphylaxsi Verified 09/09/21 16:37 s amoxicillin [From Augmentin] AdvReac Intermediate Hives Verified 09/09/21 16:37 Swelling budesonide AdvReac Intermediate thrush Verified 09/09/21 16:37 clavulanic acid AdvReac Intermediate Hives Verified 09/09/21 16:37 [From Augmentin] Swelling lisinopril AdvReac Intermediate cough Verified 09/09/21 16:37 pentazocine AdvReac Intermediate elevated Verified 09/09/21 16:37 LFT's diphenhydramine AdvReac Mild Benadryl Verified 09/09/21 16:37 [From Benadryl] and Tylenol PM poorly tolerated, wound up. fluconazole AdvReac Mild Nausea Verified 09/09/21 16:37 prednisone AdvReac Mild flu like Verified 09/09/21 16:37 illness varenicline AdvReac Mild I got Verified 09/09/21 16:37 ugly lactose AdvReac Diarrhea Verified 09/09/21 16:37 General Stated Complaint: [facility] TERESA: 2 Review of Systems <Mateo Dumont MD - Last Filed: 09/09/21 19:39> Narrative: Chronic back pain, reports 50 pound weight gain over months time, lower extremity edema. No syncope. No recent illness. 8 systems were reviewed and otherwise negative PFSH <Mateo Dumont MD - Last Filed: 09/09/21 19:39> All Active Problems (Updated 09/09/21 @ 19:42 by Mateo Dumont MD) Hypoxia (Acute) Edema of both lower legs (Acute) Bilateral groin pain (Acute) & buttock .. see PMR note, 08/2021. JOSTIN (acute kidney injury) (Acute) Cr 1.7 vs 1.5, 09/03/21 .. complicating diuresis. Chronic renal insufficiency, stage II (mild) (Chronic) Mild-Mod CKD G3a (GFR 48, 08/2020). Edema due to congestive heart failure (Acute) Acute on chronic, presumed CHF.. following diuresis per Dr. Perez direction, 06/2021. Diastolic dysfunction (Chronic) Per Cardio Avani), 09/2018 ... June 29, 2010: LVEDP 23 mm mercury. January 31, 2000. LVEDP 7 mm mercury, rising to 21 mm mercury after 1 L normal saline over 10 minutes. Wedge pressure 19 mm mercury .. mild pulmonary hypertension on right heart catheterization (40-45 MmHG). Hx recurrent pericarditis/ pericardial effusion, Sjogren's syndrome. Sacroiliac dysfunction (Acute) 08/23/21 [facility] Pain and spine note Displacement of lumbar intervertebral disc (Acute) 08/23/21 [facility] Pain and spine note Lumbar stenosis (Acute) with lumbosacral radiculopathy per [facility] Hiatal hernia (Chronic) General/Bariatric Surgery on HOLD 2' CHF, Hip Pain. Widened retrocardiac hiatal hernia, 7cm x 5cm AP. Larger than 2012..Hx GERD, with possible new symptoms (12/2020). Surgery? Osteoarthritis of hips, bilateral (Acute 06/03/21) [facility] xray Abnormal chest CT (Acute) [facility] 06/03/21: Recommendations to be discussed w/ pt; 1. F/u imaging of enlarged subcarinal node 3-6mo. 2. Correlating mammography or breast u/s for breast nodules (non-emergent). 3. Dedicated imaging for indeterminate splenic lesion. 4. Repeat Chest CT Q12mo to f/u on nodules bi-lat. Lung nodule < 6cm on CT (Acute) 4mm, per 12/2020 CT (new since 2012).. 6 mo FU [ ] Shrinking lung syndrome (Acute) Restrictive lung disease (Acute) PFT, 01/2021 (Spirometry: Muscle pressures are decreased.. diffusion [capacity] reduced.. Airway resistance normal...Possible mild restrictive lung disease with decreased muscle pressures and a reduced diffusion. (compared to 02/23/2012, total lung capacity & diffusion is reduced .. Clinical Correlation (?) ik Sjogren's disease (Chronic) GERD (gastroesophageal reflux disease) (Chronic) Tubular adenoma of colon (Chronic 04/25/16) Prediabetes (Acute) A1C 5.8 Hypothyroidism (Chronic) Medical History Abnormal finding on imaging CT (Lung Ca Screen), 12/2020: Increased markings, 4mm RLL nodule, Dec volume, widened hiatal hernia. Achilles tendonitis Left, with plantar fasciitis Acute nonintractable headache Anterior epistaxis BPPV (benign paroxysmal positional vertigo) Chronic antral gastritis Chronic pain Dysphagia Fatigue severe, sudden onset, napped x hours this week (2' fluconazole?) Femoroacetabular impingement of both hips Former smoker Quit 05/2009 Herpes simplex Hip effusion, right Aspirated, Ortho, 06/2021 Hyperlipidemia (07/23/12) Hx declining statin? Increased BMI (body mass index) (05/11/17) Morbid obesity per [facility] Gen Surge 04/21/21 note Left carpal tunnel syndrome Lichen sclerosus et atrophicus Halbetasol per [facility], 01/2021. (2019. Patient advised to begin topical steroid to vulva) Lipoma of left upper extremity Localized osteoarthritis of right knee Low back pain Neoplasm of uncertain behavior of skin (05/15/14) Left forehead, status post excision with primary closure. Seborrheic keratosis by final pathology. 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 TAYLER ([facility]) shows borderline/normal results. 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 Perez on 01/06/20 Posterior tibial tendon dysfunction, left Restless leg syndrome Screening mammography declined 12/2020 EO Severe obstructive sleep apnea 06/13/21 Sleep study note Severe right groin pain x 2 weeks, with Hx low grade discomfort x months. Hx UrSling. Rt thigh pain described. Shortness of breath Sialoadenitis (10/31/13) Skin lesion of neck Snoring Stopped smoking with greater than 40 pack year history Strain of muscle of right groin region Tobacco dependence Unilateral primary osteoarthritis, left knee Surgical History Abdominal hysterectomy ENDOMETRIOSIS; ONE OVARY REMAINS Colonoscopy - IV Sedation (04/25/16) History of ankle surgery hardware present History of arthroplasty of finger of left hand History of bunionectomy of both great toes History of carpal tunnel surgery of left wrist History of colpocleisis History of suburethral sling procedure 12/18/18 Vaginectomy/colpocleisis with Posterior colporrhapy and transobturator mid urethral sling at [facility] Hx of appendectomy Hx of thumb surgery Prolapse of female pelvic organs Stage III post hysterectomy vaginal prolapse with stress incontinence. Rx at [facility] 12/18/18. Status post abdominal hysterectomy Status post tonsillectomy 2017? Tonsillectomy Family History Mother , AGE 91 Alzheimer disease Father , AGE 86 Essential hypertension AAA (abdominal aortic aneurysm) Alzheimer disease Heart disease Hyperlipidemia Bladder cancer Sister No problems noted. Maternal Grandfather , SHOT AGE 35 No problems noted. Paternal Grandfather , AGE 93 Heart disease Maternal Grandmother , AGE 64 Uterine cancer Paternal Grandmother , AGE 73 AAA (abdominal aortic aneurysm) Stroke Son No problems noted. Son Asthma Son No problems noted. Social History Smoking/Tobacco Use Status: Former Tobacco Use Tobacco: How many years used: 45 Smoking risk assessment performed?: Yes Alcohol Intake: current Alcohol Intake frequency: holidays/special occasions only Alcohol type: beer and wine Drug use: Never Substance use type: does not use Counseling given: No Counseling provided: other Adopted: No Caregiver/Support person: No Foster care: No Household members: none Housing: house Number of Children: 3 number of grandchildren: 6 Communication Needs: None Education Level: college Details: Associate's Degree Do you need help understanding health information?: Never 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 [employer] Pets and animals: No Sexually active: No Do you think of yourself as: straight/heterosexual Current gender identity: female What is your relationship status?: How often do you talk on the phone with friends or family?: three or more times per week How often do you get together with friends or relatives?: twice per week Do you belong to any clubs or organized social groups?: yes Panel score (0-1 are the most socially isolated patients): 2 What type of physical activity do you participate in: weight lifting and occasional exercise Duration: > 90 minutes/day Frequency: daily Any/Taoism: Jewish Special any needs: No Seatbelt use: always Helmet use: No Drive intox or ride w/intox 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 Pleasant, well groomed, interactive. HEAD: Normocephalic, atraumatic ENT: Mucous membranes moist, oropharynx unremarkable, External ear exam unremarkable EYES: PERRL, EOMI NECK: Full ROM, no MARLEN, no menigismus CHEST/RESP: Nontender, rales at the bases although diminished by room background noise CARDIOVASCULAR: Distant RRR, no murmur, rub abel appreciated 2+ Rad pulse bilateral ABDOMEN: Soft, nontender, no mass. +Bowel sounds EXT: Full ROM, pitting tense edema to both lower extremities Neuro: Grossly normal neurologic exam, conversant, interactive. Psych: Speech fluent, thoughts congruent, affect normal Course <Mateo Dumont MD - Last Filed: 09/09/21 19:39> Vital Signs Vital signs: Vital Signs Temperature 36.0 C L 09/09/21 16:31 Pulse 94 H 09/09/21 16:31 Respiratory Rate 19 09/09/21 16:31 Blood Pressure 116/110 H 09/09/21 16:31 Pulse Oximetry 94 09/09/21 16:31 Temperature 36.0 C L 09/09/21 16:31 Temperature Source Temporal Artery Scan 09/09/21 16:31 Pulse 94 H 09/09/21 16:31 Respiratory Rate 19 09/09/21 16:31 Respiratory Effort 09/09/21 16:31 Blood Pressure 116/110 H 09/09/21 16:31 Blood Pressure Position Supine 09/09/21 16:31 Pulse Oximetry 94 09/09/21 16:31 Oxygen Delivery Method Room Air 09/09/21 16:31 Oxygen Flow Rate 0 09/09/21 16:31 Pain Level 7 09/09/21 16:31 Sign Out <Mateo Dumont MD - Last Filed: 09/09/21 19:39> Sign Out Data: Sign Out Comment: Followup DDimer, probable admission Last updated by Mateo Dumont MD at 09/09/21 19:46
[2021-09-09] MEDS: HYDROcodone 5/Acetaminophen 325 TAB PO (17:10)
--- NOTE | 2021-09-09 17:41 | DI.VRAD_ITS ---
PROCEDURE INFORMATION: Exam: XR Chest Exam date and time: 09/09/2021 5:19 PM Age: 75 years old Clinical indication: Shortness of breath TECHNIQUE: Imaging protocol: XR of the chest. Views: 2 views. COMPARISON: CT CHEST WO 07/01/2021 1:43 PM FINDINGS: Lungs: Hyperinflation consistent with emphysema/COPD. No acute infiltrates. No edema. Pleural spaces: No pleural effusion. No pneumothorax. Heart/Mediastinum: Normal heart size. Bones/joints: Degenerative thoracic spine disease. IMPRESSION: 1. Hyperinflation consistent with emphysema/COPD. 2. Degenerative thoracic spine disease. 3. No acute infiltrates, edema, or pleural disease. Dictated and Authenticated by: Demetrius Shah MD. Ordering:CHELSEA Galindo MD
[2021-09-09 18:00] LABS: COVID-19 PCR Negative (Negative); Influenza A PCR Negative (Negative); Influenza B PCR Negative (Negative); RSV PCR Negative (Negative)
[2021-09-09 18:03] LABS: Abs Immature Grans 0.01 10^3/uL (0.0-0.06); Absolute Basophil Count 0.03 10^3/uL (0.0-0.2); Absolute Eosinophil Count 0.17 10^3/uL (0.0-0.7); Absolute Lymphocyte Count 2.42 10^3/uL (1.2-3.4); Absolute Monocyte Count 0.59 10^3/uL (0.1-0.8); Absolute Neutrophil Count 3.45 10^3/uL (1.2-6.7); Basophils % 0.4; Eosinophils % 2.5; HCT 33.4 % (36.0-46.0); HGB 11.2 g/dL (11.2-15.7); Immature Grans % 0.1; Lymphocytes % 36.3; MCH 32.5 pg (27.0-33.0); MCHC 33.5 % (32.0-36.0); MCV 97 fL (80-95); MPV 9.2 fL (8.0-11.0); Monocytes % 8.8; Neutrophils % 51.9; Platelet Count 246 10^3/uL (130-400); RBC 3.45 10^6/uL (3.93-5.22); RDW 13.2 % (11.7-14.6); RDW-SD 46.7 fL; WBC 6.67 10^3/uL (4.4-10.8)
[2021-09-09 18:12] LABS: Source Nasopharynx
[2021-09-09 18:19] LABS: ALT 20 U/L (14-59); AST 16 U/L (15-37); Albumin 3.6 g/dL (3.4-5.0); Alkaline Phosphatase 78 U/L (46-116); Anion Gap 7.1 mmol/L (3-11); BUN 27 mg/dL (7-18); Bilirubin, Total 0.4 mg/dL (0.2-1.0); CO2 31.9 mmol/L (21.0-32.0); CREATININE 1.7 mg/dL (0.55-1.02); Calcium 9.9 mg/dL (8.5-10.1); Chloride 100 mmol/L (98-107); Glucose 89 mg/dL (74-106); Magnesium 2.3 mg/dL (1.8-2.4); NT-proBNP 47 pg/mL (<300); Potassium 4.2 mmol/L (3.5-5.1); Sodium 139 mmol/L (136-145); Total Protein 7.1 g/dL (6.4-8.2); Troponin I < 50 ng/L (<or=60)
[2021-09-09] MEDS: ACETAMINOPHEN 1,000 MG/100 ML BTL 400 MG IVPB (19:10)
[2021-09-09] MEDS: HYDROmorphone 2 MG/ML VIAL 0.5 MG IVP (19:11)
[2021-09-09 20:30] LABS: D-Dimer 1776 ng/mlFEU (<500)
--- NOTE | 2021-09-09 20:30 | DI.CT_ITS ---
Exam(s) CT CHEST PE CTA EXAM: CT CHEST PE CTA CLINICAL HISTORY: hypoxic, elevated dimer, r/o pe. TECHNIQUE: Imaging Protocol: Axial CT angiography was performed with multi-slice acquisition and mu lti-planar and/or 3D reconstructions. CONTRAST MATERIAL: Intravenous: Visipaque 320ml contrast volume:100 mL COMPARISON: CT CT CHEST WO from 07/01/2021 FINDINGS: The examination is limited due to patient motion artifact. Tracheobronchial tree: Patent where visualized. Pulmonary parenchyma: Atelectasis or scarring is seen in the lung bases. No focal consolidating infi ltrates are present. There are stable pulmonary nodules. No new pulmonary nodules are present. The re do appear to be a few cystic areas within the lungs suggesting COPD. Pulmonary Arteries: No evidence of filling defect to suggest pulmonary emboli. Mediastinum and Chelsi: No dominant adenopathy or fluid collection. The esophagus is unremarkable. Th ere is a large hiatal hernia. Visualized thyroid gland: Unremarkable. Pleura: No effusion or pneumothorax. Heart: Mild cardiomegaly. Coronary artery calcifications are present. No pericardial effusion. Aorta: Thoracic aorta non-dilated. No evidence of dissection. Atherosclerosis is present. Upper abdomen: Unremarkable. Soft tissues: Unremarkable. Bones: Within normal limits for the patient's age. IMPRESSION: 1. No evidence of pulmonary embolism, thoracic aortic dissection or aneurysm. 2. Mild COPD. 3. No focal consolidating infiltrates. RADIATION DOSE DELIVERED: 553.57mGy.cm Total DLP DATA REPOSITORY: All CT scans at this facility are submitted to the National Radiology Data Registry (NRDR) Dose Index Registry (DIR) with the [employer] (A[employer]). RADIATION OPTIMIZATION: All CT scans at this facility use at least one of these dose optimization te chniques: automated exposure control; mA and/or kV adjustment per patient size (includes targeted exa ms where dose is matched to clinical indication); or iterative reconstruction.
--- NOTE | 2021-09-09 21:43 | DI.VRAD_ITS ---
PROCEDURE INFORMATION: Exam: CTA Chest With Contrast Exam date and time: 09/09/2021 9:10 PM Age: 75 years old Clinical indication: Shortness of breath; Additional info: SOB, hypoxia, R/O pe TECHNIQUE: Imaging protocol: Computed tomographic angiography of the chest with contrast. 3D rendering (Not supervised by radiologist): MIP and/or 3D reconstructed images were created by the technologist. Radiation optimization: All CT scans at this facility use at least one of these dose optimization techniques: automated exposure control; mA and/or kV adjustment per patient size (includes targeted exams where dose is matched to clinical indication); or iterative reconstruction. Contrast material: VISIPAQUE 320; Contrast volume: 100 ml; Contrast route: INTRAVENOUS (IV); COMPARISON: CT CHEST WO 07/01/2021 1:43 PM FINDINGS: Pulmonary arteries: Pulmonary arteries well opacified. No embolism. Aorta: Thoracic aorta without aneurysm or dissection. Atherosclerotic calcium. Lungs: Moderate bronchiectasis and mild bronchial wall thickening. These features are consistent with COPD. Cannot exclude acute bronchitis versus chronic bronchitis. The degree of bronchial wall thickening is slightly greater on current study in comparison with a previous exam 07/01/2021 which suggests a component of acute bronchial inflammation. No peripheral infiltrates or pneumonitis. Posterior lung base scarring. Pleural spaces: No pleural effusion. Heart: Normal heart size. No pericardial effusion. Mild coronary artery atherosclerotic calcium. Lymph nodes: Unremarkable. No enlarged lymph nodes. Diaphragm: Large hiatal hernia. No acute features. A small amount of fluid seen anterior to the hiatal hernia and distal esophagus is noted on series 4, images 28 through 37. Significance of this is uncertain. This was present 07/01/2021 and is essentially stable. 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 This has benign features. Liver: Liver with fatty infiltration. Bones/joints: Degenerative thoracic spine changes. No acute fracture. Soft tissues: Unremarkable. IMPRESSION: 1. Bronchiectasis consistent with COPD. 2. Mild bronchial wall thickening suggesting a component of bronchitis. No peripheral infiltrates. 3. No pleural effusion. 4. No pulmonary arterial embolism evident. 5. Thoracic aorta without aneurysm or dissection. 6. Moderate size hiatal hernia. No acute features. 7. Fatty liver change. Dictated and Authenticated by: Demetrius Shah MD. Ordering:ALLYN Sharif MD
[2021-09-09] MEDS: Albuterol/Ipratropium 3 ML UPD VIAL UPD (22:13)
[2021-09-09] MEDS: levoFLOXacin 750 MG/150 ML BAG 100 MG IVPB (22:40)
[2021-09-09] MEDS: HYDROmorphone 2 MG/ML VIAL 1 MG IVP (22:48)
[2021-09-09] MEDS: Normal Saline Flush 10 ML SYR IVP (22:49)
--- NOTE | 2021-09-09 23:01 | HPE_ITS ---
Date of service: 09/09/21 Time of Service: 22:01 Assessment and Plan Assessment and plan (1) Hypoxia: Start date: 09/09/21 Status: Acute Assessment and plan: This is a 55-year-old lady who was not using home oxygen and required oxygen when she was further evaluated in the ED and alcohol oxygen supplement. She has no overt pneumonia but is on Levaquin for possible cellulitis over lower extremities with edema. Imaging was unrevealing except for chronic lung disease. Patient will have updated echocardiogram with a history of right-sided heart failure in the past and continue oral diuretics for now with patient having had increased oral diuretics for the last several days prior to admission without improvement of her swelling or progressive hypoxemia. (2) Edema of both lower legs: Status: Chronic Assessment and plan: Patient has had progressive lower extremity edema which is nonpitting most likely secondary to change in activity, obesity and right-sided heart failure by history. (3) Bilateral groin pain: Status: Chronic Assessment and plan: This pain is associated with her back mostly with his somewhat tender to range of motion but not the primary source of her pain according to patient. Consider imaging and follow-up with his evaluation in the future. (4) Edema due to congestive heart failure: Status: Chronic Assessment and plan: This is a chronic problem worsening with nonpitting edema and erythema with some concerns of early cellulitis. Patient will be placed on Levaquin. (5) Lumbar stenosis: Status: Chronic Assessment and plan: Patient had an MRI revealing lumbar stenosis or degenerative disc disease with radiculopathy on the left. Continue follow-up with [facility] [place] and pain clinic at [facility]. PT evaluation while inpatient. History of Present Illness History of Present Illness Chief Complaint: 4 weeks history of increased swelling and redness over legs with pain Narrative: This is a 75-year-old lady who had sudden onset of low back pain in May 2021 which went through her left hip. She had no specific injury but is overweight and sedentary. With her increased pain she has been gaining weight and slowly increasing swelling in her lower extremities which is nonpitting but becoming hard and red with erythema over the anterior legs along with atrophy of the skin but no breakdown. The patient's PCP has been increasing her oral intake for several days prior to presentation. This did not help her edema. The patient has had progressive discomfort in her left lower extremity with pain in the L4 nerve root region causing radicular symptoms. She has been seen by the pain clinic and has received an epidural with some relief for short time She did have an MRI prior to that procedure revealing degenerative disc disease with nerve root compression at the L4 level on the left. There is no plan for surgery at this time. She reported to the ED because of hypoxemia with a pulse oximeter in the mid 80% range and evaluation did not reveal acute pulmonary embolus and labs were fairly stable except for positive D-dimer which could be from inflammation. Because of the patient's erythema and tenderness over her legs she was started on Levaquin though the WBC was normal and no fever was reported. She did have tenderness which was noted. The patient does live alone and was difficult to perform ADL activity. Review of Systems Narrative: 13 point review of systems otherwise unrevealing or stable. Patient is gaining weight slowly since she has been less active in the last several months. PFSH All Active Problems (Updated 09/10/21 @ 13:21 by Kirby Dowell) Hypoxia (Acute) Edema of both lower legs (Chronic) Bilateral groin pain (Chronic) & buttock .. see PMR note, 08/2021. JOSTIN (acute kidney injury) (Acute) Cr 1.7 vs 1.5, 09/03/21 .. complicating diuresis. Chronic renal insufficiency, stage II (mild) (Chronic) Mild-Mod CKD G3a (GFR 48, 08/2020). Edema due to congestive heart failure (Chronic) Acute on chronic, presumed CHF.. following diuresis per Dr. Perez direction, 06/2021. Diastolic dysfunction (Chronic) Per Cardio (Chris), 09/2018 ... June 29, 2010: LVEDP 23 mm mercury. January 31, 2000. LVEDP 7 mm mercury, rising to 21 mm mercury after 1 L normal saline over 10 minutes. Wedge pressure 19 mm mercury .. mild pulmonary hypertension on right heart catheterization (40-45 MmHG). Hx recurrent pericarditis/ pericardial effusion, Sjogren's syndrome. Sacroiliac dysfunction (Acute) 08/23/21 [facility] Pain and spine note Displacement of lumbar intervertebral disc (Acute) 08/23/21 [facility] Pain and spine note Lumbar stenosis (Chronic) with lumbosacral radiculopathy per Pain Clinic Hiatal hernia (Chronic) General/Bariatric Surgery on HOLD 2' CHF, Hip Pain. Widened retrocardiac hiatal hernia, 7cm x 5cm AP. Larger than 2013..Hx GERD, with possible new symptoms (12/2020). Surgery? Osteoarthritis of hips, bilateral (Acute 06/03/21) [facility] xray Abnormal chest CT (Acute) [facility] 06/03/21: Recommendations to be discussed w/ pt; 1. F/u imaging of enlarged subcarinal node 3-6mo. 2. Correlating mammography or breast u/s for breast nodules (non-emergent). 3. Dedicated imaging for indeterminate splenic lesion. 4. Repeat Chest CT Q12mo to f/u on nodules bi-lat. Lung nodule < 6cm on CT (Acute) 4mm, per 12/2020 CT (new since 2012).. 6 mo FU [ ] Shrinking lung syndrome (Acute) Restrictive lung disease (Acute) PFT, 01/2021 (Spirometry: Muscle pressures are decreased.. diffusion [capacity] reduced.. Airway resistance normal...Possible mild restrictive lung disease with decreased muscle pressures and a reduced diffusion. (compared to 02/23/2012, total lung capacity & diffusion is reduced .. Clinical Correlation (?) ik Sjogren's disease (Chronic) GERD (gastroesophageal reflux disease) (Chronic) Tubular adenoma of colon (Chronic 04/25/16) Prediabetes (Acute) A1C 5.8 Hypothyroidism (Chronic) Medical History Abnormal finding on imaging CT (Lung Ca Screen), 12/2020: Increased markings, 4mm RLL nodule, Dec volume, widened hiatal hernia. Achilles tendonitis Left, with plantar fasciitis Acute nonintractable headache Anterior epistaxis BPPV (benign paroxysmal positional vertigo) Chronic antral gastritis Chronic pain Dysphagia Fatigue severe, sudden onset, napped x hours this week (2' fluconazole?) Femoroacetabular impingement of both hips Former smoker Quit 05/2009 Herpes simplex Hip effusion, right Aspirated, Ortho, 06/2021 Hyperlipidemia (07/23/12) Hx declining statin? Increased BMI (body mass index) (05/11/17) Morbid obesity per [facility] Gen Surge 04/21/21 note Left carpal tunnel syndrome Lichen sclerosus et atrophicus Halbetasol per [facility], 01/2021. (2019. Patient advised to begin topical steroid to vulva) Lipoma of left upper extremity Localized osteoarthritis of right knee Low back pain Neoplasm of uncertain behavior of skin (05/15/14) Left forehead, status post excision with primary closure. Seborrheic keratosis by final pathology. 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 TAYLER ([facility]) shows borderline/normal results. 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 Perez on 01/06/20 Posterior tibial tendon dysfunction, left Restless leg syndrome Screening mammography declined 12/2020 EO Severe obstructive sleep apnea 06/13/21 Sleep study note Severe right groin pain x 2 weeks, with Hx low grade discomfort x months. Hx UrSling. Rt thigh pain described. Shortness of breath Sialoadenitis (10/31/13) Skin lesion of neck Snoring Stopped smoking with greater than 40 pack year history Strain of muscle of right groin region Tobacco dependence Unilateral primary osteoarthritis, left knee Surgical History Abdominal hysterectomy ENDOMETRIOSIS; ONE OVARY REMAINS Colonoscopy - IV Sedation (04/25/16) History of ankle surgery hardware present History of arthroplasty of finger of left hand History of bunionectomy of both great toes History of carpal tunnel surgery of left wrist History of colpocleisis History of suburethral sling procedure 12/18/18 Vaginectomy/colpocleisis with Posterior colporrhapy and transobturator mid urethral sling at [facility] Hx of appendectomy Hx of thumb surgery Prolapse of female pelvic organs Stage III post hysterectomy vaginal prolapse with stress incontinence. Rx at [facility] 12/18/18. Status post abdominal hysterectomy Status post tonsillectomy 2018? Tonsillectomy Family History Mother , AGE 91 Alzheimer disease Father , AGE 86 Essential hypertension AAA (abdominal aortic aneurysm) Alzheimer disease Heart disease Hyperlipidemia Bladder cancer Sister No problems noted. Maternal Grandfather , SHOT AGE 35 No problems noted. Paternal Grandfather , AGE 93 Heart disease Maternal Grandmother , AGE 64 Uterine cancer Paternal Grandmother , AGE 73 AAA (abdominal aortic aneurysm) Stroke Son No problems noted. Son Asthma Son No problems noted. Social History Smoking/Tobacco Use Status: Former Tobacco Use Tobacco: How many years used: 45 Smoking risk assessment performed?: Yes Alcohol Intake: current Alcohol Intake frequency: holidays/special occasions only Alcohol type: beer and wine Drug use: Never Substance use type: does not use Counseling given: No Counseling provided: other Adopted: No Caregiver/Support person: No Foster care: No Household members: none Housing: house Number of Children: 3 number of grandchildren: 6 Communication Needs: None Education Level: college Details: Associate's Degree Do you need help understanding health information?: Never 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[employer] [place] Pets and animals: No Sexually active: No Do you think of yourself as: straight/heterosexual Current gender identity: female What is your relationship status?: How often do you talk on the phone with friends or family?: three or more times per week How often do you get together with friends or relatives?: twice per week Do you belong to any clubs or organized social groups?: yes Panel score (0-1 are the most socially isolated patients): 2 What type of physical activity do you participate in: weight lifting and occasional exercise Duration: > 90 minutes/day Frequency: daily Any/Lutheran: Shinto Special any needs: No Seatbelt use: always Helmet use: No Drive intox or ride w/intox otr hazmat 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 driver: No Do you feel safe at home: Yes Additional Social history: lives alone Female Reproductive History Menstrual Menopause type: surgical History History 3 Para Hx # Term Pregnancies 3 Multiple births Hx # Pregnancies Ectopic pregnancies AB induced Hx Number of Living Children AB spontaneous Meds Allergies and Home Medications Allergies Allergy/AdvReac Type Severity Reaction Status Date / Time codeine Allergy Severe Anaphylaxsi Verified 09/09/21 16:37 s morphine Allergy Severe Anaphylaxsi Verified 09/09/21 16:37 s oxycodone Allergy Severe Anaphylaxsi Verified 09/09/21 16:37 s amoxicillin [From Augmentin] AdvReac Intermediate Hives Verified 09/09/21 16:37 Swelling budesonide AdvReac Intermediate thrush Verified 09/09/21 16:37 clavulanic acid AdvReac Intermediate Hives Verified 09/09/21 16:37 [From Augmentin] Swelling lisinopril AdvReac Intermediate cough Verified 09/09/21 16:37 pentazocine AdvReac Intermediate elevated Verified 09/09/21 16:37 LFT's diphenhydramine AdvReac Mild Benadryl Verified 09/09/21 16:37 [From Benadryl] and Tylenol PM poorly tolerated, wound up. fluconazole AdvReac Mild Nausea Verified 09/09/21 16:37 prednisone AdvReac Mild flu like Verified 09/09/21 16:37 illness varenicline AdvReac Mild I got Verified 09/09/21 16:37 ugly lactose AdvReac Diarrhea Verified 09/09/21 16:37 Home Medications Medication Instructions Recorded Confirmed Type cholecalciferol (vitamin D3) 50 2,000 unit PO DAILY 07/01/15 09/09/21 History mcg (2,000 unit) capsule (Vitamin D3) aspirin 81 mg tablet,delayed 81 mg PO DAILY 01/12/17 09/09/21 History release (Aspir-) meclizine 25 mg tablet 12.5 - 25 mg PO TID PRN dizziness 06/16/20 09/09/21 Rx #30 tabs triamcinolone acetonide 0.5 % 1 applic topical BID #15 grams 08/25/20 09/09/21 Rx topical ointment nitroglycerin 0.4 mg sublingual 0.4 mg sublingual Q5M PRN chest 12/12/2006/01 Rx tablet pain #30 tabs halobetasol propionate 0.05 % 1 applic topical BID #50 grams 01/05/21 09/09/21 Rx topical ointment levothyroxine 50 mcg tablet 50 mcg PO DAILY #90 tabs 03/16/21 09/09/21 Rx ropinirole 3 mg tablet 3 mg PO QHS #90 tabs 03/16/21 09/09/21 Rx isosorbide mononitrate 30 mg 60 mg PO DAILY 05/21/21 09/09/21 History tablet,extended release 24 hr pantoprazole 40 mg tablet,delayed 40 mg PO BID #60 tabs 05/27/21 09/09/21 Rx release sucralfate 100 mg/mL oral 10 ml PO QACHS #420 mL 05/27/21 09/09/21 Rx suspension clotrimazole 1 % topical ointment 1 applic topical BID 2 weeks #90 06/17/21 09/09/21 Rx grams atorvastatin 40 mg tablet 40 mg PO DAILY 06/25/21 09/09/21 History sacubitril 49 mg-valsartan 51 mg 1 tab PO BID 06/25/21 09/09/21 History tablet (Entresto) tiotropium 2.5 mcg-olodaterol 2.5 2 puff inhalation DAILY #4 grams 07/12/21 09/09/21 Rx mcg/actuation mist for inhalation (Stiolto Respimat) ammonium lactate 12 % topical cream 1 applic topical BID #385 grams 07/15/21 09/09/21 Rx celecoxib 200 mg capsule 200 mg PO BID #60 caps 07/30/21 09/09/21 Rx gabapentin 300 mg capsule See Rx Instructions PO BID PRN 09/03/21 09/09/21 Rx neuralgia #60 caps hydrocodone 5 mg-acetaminophen 325 1 tab PO BID PRN pain #10 tabs 09/03/21 09/09/21 Rx mg tablet levothyroxine 75 mcg tablet 75 mcg PO DAILY #90 tabs 09/03/21 09/09/21 Rx spironolactone 25 mg tablet 25 mg PO DAILY #30 tabs 09/03/21 09/09/21 Rx torsemide 20 mg tablet See Rx Instructions PO DAILY #90 09/03/21 09/09/21 Rx tabs Exam Narrative Exam Narrative: General: Patient appears older than stated age, moderately obese and in no acute distress. She is very talkative. Alert and oriented x3. HEENT: Normocephalic, eyes with pupils equal and reactive to light symmetrically, extraocular movement intact and sclera anicteric. Oropharynx with moist mucosa. Neck: Supple without JVD. Back: Kyphotic without CVA tenderness. Lungs: Fair aeration with no focalizing rales or rhonchi. Bronchovesicular breath sounds diffusely. Breast: Exam deferred. Heart: Regular rate and rhythm with quiet systolic murmur over apex, no appreciable gallops or rubs. Abdomen: Obese contour, soft nontender to palpation with no palpable hepatosplenomegaly. Genitalia/rectal: Exam deferred. Extremities: Hips have decreased range of motion especially with rotation of the left more than right, straight leg test positive on the left, peripheral pulses decreased with good capillary refill, no clubbing, cyanosis or pitting edema with 3+ nonpitting edema both lower extremities below her feet and 2. Weight the knees with atrophic, shiny erythematous skin with increased warmth to touch over the anterior aspect of the legs. Negative Trever sign bilaterally. Joints have decreased range of motion with no acute joint swelling. Skin: Pale, warm dry skin changes over legs. Neuro: Cranial nerves II to XII grossly intact, no focal motor deficits and no t remor. Psych: Anxious with slightly pressured speech, mood normal though some rumination over somatic complaints. No abnormal thought processes. Remote and recent memory intact. Results Imaging Imaging Studies: EXAM:? XR CHEST 2V PA ? LATERAL CLINICAL HISTORY:? sob, EDEMA TECHNIQUE:? 2D digital imaging was performed of the chest.? Two images were obtained.? PA and lateral views were obtained. COMPARISON:? CR XR CHEST 2V PA ? LATERAL from 02/10/2021 FINDINGS: MEDIASTINUM: Normal.? HEART: Normal. PULMONARY VASCULATURE: Normal. LUNGS: Clear.? The lungs are hyperinflated suggesting underlying COPD. PLEURAL SPACE: No pleural effusion or pneumothorax. BONE:Within normal limits for the patient's age.? OTHER FINDINGS:Normal.? IMPRESSION: No acute pulmonary findings. CT CHEST PE CTA EXAM: ? CT CHEST PE CTA CLINICAL HISTORY: ? hypoxic, elevated dimer, r/o pe. TECHNIQUE:? Imaging Protocol:? Axial CT angiography was performed with multi- slice acquisition and multi-planar and/or 3D reconstructions. CONTRAST MATERIAL:? Intravenous: Visipaque 320ml contrast volume:100 mL COMPARISON:? CT CT CHEST WO from 07/01/2021 FINDINGS: The examination is limited due to patient motion artifact.? Tracheobronchial tree: Patent where visualized. Pulmonary parenchyma: Atelectasis or scarring is seen in the lung bases.? No focal consolidating infiltrates are present.? There are stable pulmonary nodules.? No new pulmonary nodules are present.? There do appear to be a few cystic areas within the lungs suggesting COPD.? Pulmonary Arteries: No evidence of filling defect to suggest pulmonary emboli. Mediastinum and Chelsi: No dominant adenopathy or fluid collection.? The esophagus is unremarkable.? There is a large hiatal hernia. Visualized thyroid gland: Unremarkable.? Pleura: No effusion or pneumothorax. Heart: Mild cardiomegaly.? Coronary artery calcifications are present.? No pericardial effusion.? Aorta: Thoracic aorta non-dilated. No evidence of dissection. Atherosclerosis is present. Upper abdomen:? Unremarkable. Soft tissues: Unremarkable.? Bones: Within normal limits for the patient's age. IMPRESSION: 1. No evidence of pulmonary embolism, thoracic aortic dissection or aneurysm. 2. Mild COPD. 3. No focal consolidating infiltrates Labs Result diagrams: 09/10/21 05:52 09/10/21 05:52 Labs: Laboratory Results - last 24 hr 09/09/21 09/09/21 09/09/21 17:15 17:50 17:50 WBC 6.67 RBC 3.45 L Hgb 11.2 Hct 33.4 L MCV 97 H MCH 32.5 MCHC 33.5 RDW 13.2 Plt Count 246 MPV 9.2 Immature Gran % 0.1 Neutrophils % 51.9 Lymphocytes % 36.3 Monocytes % 8.8 Eosinophils % 2.5 Basophils % 0.4 Nucleated RBC % 0.0 Absolute Neutrophils 3.45 Absolute Lymphocytes 2.42 Absolute Monocytes 0.59 Absolute Eosinophils 0.17 Absolute Basophils 0.03 D-Dimer Sodium 139 Potassium 4.2 Chloride 100 Carbon Dioxide 31.9 Anion Gap 7.1 BUN 27 H Creatinine 1.7 H Estimated GFR/1.73 m2 29.30 Glucose 89 Calcium 9.9 Magnesium 2.3 Total Bilirubin 0.4 AST 16 ALT 20 Alkaline Phosphatase 78 Troponin I < 50 NT-Pro-B Natriuret Pep 47 Total Protein 7.1 Albumin 3.6 COVID-19 Source Nasopharynx SARS-CoV-2 (PCR) Negative Influenza Type A (PCR) Negative Influenza Type B (PCR) Negative RSV (PCR) Negative 09/09/21 09/09/21 19:20 19:54 WBC RBC Hgb Hct MCV MCH MCHC RDW Plt Count MPV Immature Gran % Neutrophils % Lymphocytes % Monocytes % Eosinophils % Basophils % Nucleated RBC % Absolute Neutrophils Absolute Lymphocytes Absolute Monocytes Absolute Eosinophils Absolute Basophils D-Dimer 1776 H Sodium Potassium Chloride Carbon Dioxide Anion Gap BUN Creatinine Estimated GFR/1.73 m2 Glucose Calcium Magnesium Total Bilirubin AST ALT Alkaline Phosphatase Troponin I Cancelled NT-Pro-B Natriuret Pep Total Protein Albumin COVID-19 Source SARS-CoV-2 (PCR) Influenza Type A (PCR) Influenza Type B (PCR) RSV (PCR) Last Vital Signs Temp 36.0 C L 09/09/21 16:31 Pulse 94 H 09/09/21 22:13 Resp 12 09/09/21 22:50 BP 130/62 09/09/21 21:27 Pulse Ox 96 09/09/21 22:50
[2021-09-09 23:54] LABS: TSH (W/Ref FT4) 3.52 uIU/mL (0.36-3.74)
[2021-09-10] VITALS (8 sets, daily range): BP systolic 90–141; BP diastolic 62–70; PULSE 76–101; RESP 12–20; TEMP 36.1–36.7; O2SAT 93–100
[2021-09-10] MEDS: rOPINIRole 1 MG TAB 3 MG PO ×2 (00:17→22:11)
[2021-09-10] MEDS: Normal Saline Flush 10 ML SYR IVP ×3 (00:17→23:59)
[2021-09-10] MEDS: Albuterol/Ipratropium 3 ML UPD VIAL UPD (04:51)
[2021-09-10] MEDS: HYDROcodone 5/Acetaminophen 325 TAB PO ×2 (04:51→10:44)
[2021-09-10] MEDS: Gabapentin 300 MG CAP PO (04:51)
[2021-09-10] MEDS: Levothyroxine 75 MCG TAB PO (05:19)
[2021-09-10 06:13] LABS: Abs Immature Grans 0.01 10^3/uL (0.0-0.06); Absolute Basophil Count 0.02 10^3/uL (0.0-0.2); Absolute Eosinophil Count 0.17 10^3/uL (0.0-0.7); Absolute Lymphocyte Count 2.53 10^3/uL (1.2-3.4); Absolute Monocyte Count 0.86 10^3/uL (0.1-0.8); Absolute Neutrophil Count 2.84 10^3/uL (1.2-6.7); Basophils % 0.3; Eosinophils % 2.6; HCT 32.6 % (36.0-46.0); HGB 10.5 g/dL (11.2-15.7); Immature Grans % 0.2; Lymphocytes % 39.3; MCH 31.8 pg (27.0-33.0); MCHC 32.2 % (32.0-36.0); MCV 99 fL (80-95); Monocytes % 13.4; Neutrophils % 44.2; Platelet Count 221 10^3/uL (130-400); RDW-SD 47.1 fL; WBC 6.43 10^3/uL (4.4-10.8)
[2021-09-10 06:37] LABS: ALT 19 U/L (14-59); AST 17 U/L (15-37); Albumin 3.2 g/dL (3.4-5.0); Alkaline Phosphatase 75 U/L (46-116); Anion Gap 8.9 mmol/L (3-11); BUN 23 mg/dL (7-18); Bilirubin, Total 0.4 mg/dL (0.2-1.0); CO2 29.1 mmol/L (21.0-32.0); CREATININE 1.6 mg/dL (0.55-1.02); Calcium 9.6 mg/dL (8.5-10.1); Chloride 103 mmol/L (98-107); Estimated GFR 31.42 (mL/min/1.73m2); Glucose 100 mg/dL (74-106); Potassium 3.9 mmol/L (3.5-5.1); Sodium 141 mmol/L (136-145); Total Protein 6.6 g/dL (6.4-8.2)
--- NOTE | 2021-09-10 07:00 | DI.US_ITS ---
Exam(s) US EXTREMITY VENOUS BI EXAM: US EXTREMITY VENOUS BI CLINICAL HISTORY: Worsening lower extremity edema. TECHNIQUE: Bilateral lower extremity venous ultrasound performed using grayscale, color-flow, and sp ectral Doppler analysis. COMPARISON: No exams were available for comparison FINDINGS: The bilateral common femoral, femoral and popliteal veins demonstrate normal compressibility, augment ation, and color Doppler. The posterior tibial veins are patent. The saphenofemoral junctions are unr emarkable. There is no evidence of a Ambrose's cyst. The soft tissues are unremarkable. IMPRESSION: Right: Negative for DVT Left: Negative for DVT DATA REPOSITORY:
--- NOTE | 2021-09-10 07:00 | DI.US_ITS ---
APPROVED REPORT EXAM: Comprehensive 2D, Doppler, and color-flow Echocardiogram Patient Location: In-Patient Room/Bed: 229 Tobacco Stripper: Lexi Capellan RDCS (AE) Indications: Worsening CHF Other Information Study Quality: Fair. Technically limited study due to body habitus, inability to position patient sca n done supine on stetcher. Conclusion Normal left ventricular wall thickness and chamber size. Estimated ejection fraction is 60%. Wall m otion is normal Normal right ventricular size and systolic function The left atrium is mildly dilated. The right atrium is normal in size Normal aortic valve without stenosis or regurgitation Normal mitral valve with mild regurgitation Normal tricuspid valve, trace regurgitation. Right ventricular systolic pressure could not be estima tone Wall motion Left Ventricle The left ventricle is normal size. The left ventricular systolic function is normal. The left ventric ular ejection fraction is within the normal range. There is normal left ventricular wall thickness. T here is normal LV segmental wall motion. There is no ventricular septal defect visualized. LVEF is 60 %. Right Ventricle Right ventricle is grossly normal in size. Right ventricular systolic function is grossly normal. Atria Left atrium is mildly dilated. The right atrium size is normal. The interatrial septum is intact with no evidence for an atrial septal defect. Aortic Valve The aortic valve is normal in structure. Aortic valve is trileaflet. There is no aortic valvular sten osis. No aortic regurgitation is present. Mitral Valve The mitral valve is normal in structure. No evidence of mitral valve stenosis. Mild mitral regurgitat ion. Tricuspid Valve The tricuspid valve is normal in structure. There is no tricuspid valve stenosis. Trace tricuspid reg urgitation. Unable to assess PA pressure. Pulmonic Valve The pulmonary valve is normal in structure. There is no pulmonic valvular stenosis. Trace pulmonic re gurgitation. Great Vessels The aortic root is normal in size. The ascending aorta is normal in size. Aortic arch is normal in ca liber. IVC is normal in size and collapses >50% with inspiration. Pericardium There is no pericardial effusion. 2D Dimensions IVSD d PLAX 0.87 cm F: 0.6-1.0 LV Vol A2C d MOD 94.3 mL LVPW d PLAX 0.90 cm F: 0.6 - 1.0 LV Vol A4C d MOD 78.0 mL LVID d PLAX 5.15 cm F: 3.8 - 5.2 LA vol/ BSA A2C s A-L 25.3 mL/m2 LVDs 3.55 cm F: 2.2 - 3.5 LA vol/ BSA A4C s A-L 11.0 mL/m2 Ao Root d 2.39 cm F: 2.7 - 3.3 LA Vol/ BSA Biplane s A-L 20.5 mL/m2 RA Area A4C 12.79 cm2 LA Area A4C s MOD 10.49 cm2 RA Vol/ BSA A4C s A-L 13.0 mL/m2 LA Area A2C s MOD 19.55 cm2 Ao Asc Diam d 3.22 cm F: 2.3 - 3.1 LV EF A4C MOD 61.0 % LV EF Teichholz 57.0 % LV EF A2C MOD 61.0 % LVEF (Paz's) 60.49 % F: 54 - 74 LV EF Biplane MOD 60.5 % LV Volume 62.78 mL F: 46 - 106 SV 51.87 mL LV Volume Index 29.20 mL/m2 F: 29 - 61 SV Index 24.08 mL/m2 LV Vol Biplane MOD 85.7 mL FS 30.05 % M-Mode TAPSE 2.50 cm (M/F) >1.7 LV Diastology MV E' medial 0.135 (>0.07 m/s) E/A Ratio 1.0 LV E/e MED 7.05 (<14) MV E Vmax 0.96 (0.4-1.3 m/s) MV E' lateral 0.085 (>0.1 m/s) MV A Vmax 0.95 (0.4-1.3 m/s) LV E/e LAT 11.25 (<14) MV E/A Ratio 0.96 MV E/E' medial 7.06 MV E/E' lateral 11.27 Aortic Valve LVOT Area 2.93 cm2 AoV Area Vmax 2.53 cm2 LVOT Vmax 1.65 m/s AoV Area/ BSA (Vmax) 1.17 cm2/m2 LVOT Mean Smith. 0.99 m/s RASHIDA Mean Smith. 2.26 cm2 LVOT Peak Grad 10.9 mmHg RASHIDA Mean Smith. Index 1.05 cm2/m2 LVOT Mean Grad 4.8 mmHg LVOT VTI 0.311 m LVOT Diam s 1.90 cm AoV Vmax 1.91 m/s Velocity Ratio 0.86 AoV Mean Smith. 1.28 m/s AoV Peak Grad 14.6 mmHg LVOT SV 91.30 mL AoV Mean Grad 7.6 mmHg AoV VTI 0.312 m AoV Area VTI 2.93 cm2 AoV Area/ BSA (VTI) 1.36 cm/m2 Mitral Valve MV DT 210 (160-240 msec) MV PHT 61 msec MV Area PHT 3.61 cm2 MV VTI 0.306 m MV Area VTI 2.98 (4.0-6.0 cm2) Pulmonary Valve PV Vmax 1.12 (0.5-1.5 m/s) RVOT Peak Gr. 2.29 mmHg PV Peak Grad 5.1 mmHg RVOT Mean Gr. 1.10 mmHg PV Mean Grad 2.5 mmHg RVOT VTI 0.132 m PV VTI 0.200 m RVOT Vmax 0.76 m/s
[2021-09-10] MEDS: Aspirin E.C. 81 MG TABEC PO (08:22)
[2021-09-10] MEDS: Enoxaparin 30 MG/0.3 ML SYR SC (08:24)
[2021-09-10] MEDS: Clotrimazole 1% 15 GM TUBE TP ×2 (08:24→19:46)
[2021-09-10] MEDS: Cholecalciferol (Vitamin D3) 1,000 UNIT TAB 2000 UNITS PO (08:24)
[2021-09-10] MEDS: Sucralfate 1 GM TAB PO ×4 (08:25→22:12)
[2021-09-10] MEDS: Pantoprazole 40 MG TABCR PO ×2 (08:25→19:46)
[2021-09-10] MEDS: Isosorbide Mononitrate 30 MG TABCR 60 MG PO (08:25)
[2021-09-10] MEDS: Tiotropium/Olodaterol 10 PUFF INHALER 2 PUFF IH (08:28)
[2021-09-10] MEDS: Spironolactone 25 MG TAB PO (08:28)
[2021-09-10 08:33] LABS: Lab Add On Test DONE
[2021-09-10 08:47] LABS: C-Reactive Protein 1.01 mg/dL (0.0-0.3)
--- NOTE | 2021-09-10 09:00 | PDOC.CMIN ---
- If Service Date Differs Date of service: 09/10/21 Time of Service: 09:00 Care Management Initial Assess REASON FOR HOSPITALIZATION:: Hypoxia, LLE, Bilateral groin pain, CHF PAST MEDICAL HISTORY/PAST SURGICAL HISTORY:: All Active Problems (Updated 09/09/21 @ 19:42 by Mateo Dumont MD). Hypoxia (Acute). Edema of both lower legs (Acute). Bilateral groin pain (Acute). & buttock .. see PMR note, 08/2021. JOSTIN (acute kidney injury) (Acute). Cr 1.7 vs 1.5, 09/03/21 .. complicating diuresis. Chronic renal insufficiency, stage II (mild) (Chronic). Mild-Mod CKD G3a (GFR 48, 08/2020). Edema due to congestive heart failure (Acute). Acute on chronic, presumed CHF.. following diuresis per Dr. Perez direction, 06/2021. Diastolic dysfunction (Chronic). Per Cardio Avani), 09/2018 ... June 29, 2010: LVEDP 23 mm mercury. January 31, 2000. LVEDP 7 mm mercury, rising to 21 mm mercury after 1 L normal saline over 10 minutes. Wedge pressure 19 mm mercury .. mild pulmonary hypertension on right heart catheterization (40-45 MmHG). Hx recurrent pericarditis/ pericardial effusion, Sjogren's syndrome. Sacroiliac dysfunction (Acute). 08/23/21 [facility] Pain and spine note. Displacement of lumbar intervertebral disc (Acute). 08/23/21 [facility] Pain and spine note. Lumbar stenosis (Acute). with lumbosacral radiculopathy per Pain Clinic. Hiatal hernia (Chronic). General/Bariatric Surgery on HOLD 2' CHF, Hip Pain. Widened retrocardiac hiatal hernia, 7cm x 5cm AP. Larger than 2012..Hx GERD, with possible new symptoms (12/2020). Surgery? Osteoarthritis of hips, bilateral (Acute 06/03/21). [facility] xray. Abnormal chest CT (Acute). [facility] 06/03/21: Recommendations to be discussed w/ pt;. 1. F/u imaging of enlarged subcarinal node 3-6mo. 2. Correlating mammography or breast u/s for breast nodules (non-emergent). 3. Dedicated imaging for indeterminate splenic lesion. 4. Repeat Chest CT Q12mo to f/u on nodules bi-lat. Lung nodule < 6cm on CT (Acute). 4mm, per 12/2020 CT (new since 2012).. 6 mo FU [ ]. Shrinking lung syndrome (Acute). Restrictive lung disease (Acute). PFT, 01/2021 (Spirometry: Muscle pressures are decreased.. diffusion [capacity] reduced.. Airway resistance normal...Possible mild restrictive lung disease with decreased muscle pressures and a reduced diffusion. (compared to 02/23/2012, total lung capacity & diffusion is reduced .. Clinical Correlation (?) ik. Sjogren's disease (Chronic). GERD (gastroesophageal reflux disease) (Chronic). Tubular adenoma of colon (Chronic 04/25/16). Prediabetes (Acute). A1C 5.8. Hypothyroidism (Chronic). Medical History . Abnormal finding on imaging. CT (Lung Ca Screen), 12/2020: Increased markings, 4mm RLL nodule, Dec volume, widened hiatal hernia. Achilles tendonitis. Left, with plantar fasciitis. Acute nonintractable headache. Anterior epistaxis. BPPV (benign paroxysmal positional vertigo). Chronic antral gastritis. Chronic pain. Dysphagia. Fatigue. severe, sudden onset, napped x hours this week (2' fluconazole?). Femoroacetabular impingement of both hips. Former smoker. Quit 05/2009. Herpes simplex. Hip effusion, right. Aspirated, Ortho, 06/2021. Hyperlipidemia (07/23/12). Hx declining statin? Increased BMI (body mass index) (05/11/17). Morbid obesity per [facility] Gen Surge 04/21/21 note. Left carpal tunnel syndrome. Lichen sclerosus et atrophicus. Halbetasol per [facility], 01/2021. (2019. Patient advised to begin topical steroid to vulva). Lipoma of left upper extremity. Localized osteoarthritis of right knee. Low back pain. Neoplasm of uncertain behavior of skin (05/15/14). Left forehead, status post excision with primary closure. Seborrheic keratosis by final pathology. 05/22. 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 MILD, per 03/2021 Vascular Eval ([facility])(No intervention planned).. TAYLER ([facility]) shows borderline/normal results. Pericardial disease (07/23/12). 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 2012: recurrence - responded to indocin and colchicine. 2020: F/U with Dr. Perez on 01/06/20. Posterior tibial tendon dysfunction, left. Restless leg syndrome. Screening mammography declined. 12/2020 EO. Severe obstructive sleep apnea. 06/13/21 Sleep study note. Severe right groin pain. x 2 weeks, with Hx low grade discomfort x months. Hx UrSling. Rt thigh pain described. Shortness of breath. Sialoadenitis (10/31/13). . Skin lesion of neck. Snoring. Stopped smoking with greater than 40 pack year history. Strain of muscle of right groin region. Tobacco dependence. Unilateral primary osteoarthritis, left knee. Surgical History . Abdominal hysterectomy. ENDOMETRIOSIS; ONE OVARY REMAINS. Colonoscopy - IV Sedation (04/25/16). History of ankle surgery. hardware present. History of arthroplasty of finger of left hand. History of bunionectomy of both great toes. History of carpal tunnel surgery of left wrist. History of colpocleisis. History of suburethral sling procedure. 12/18/18 Vaginectomy/colpocleisis with Posterior colporrhapy and transobturator mid urethral sling at [facility]. Hx of appendectomy. Hx of thumb surgery. Prolapse of female pelvic organs. Stage III post hysterectomy vaginal prolapse with stress incontinence. Rx at [facility] 12/18/18. Status post abdominal hysterectomy. Status post tonsillectomy. 2018? Tonsillectomy PREVIOUS FUNCTIONAL STATUS/SOCIAL/FAMILY SUPPORTS:: Fe lives in [place] alone. 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 Fe uses a cane and drives and is independent at baseline. She has 3 sons that live out of State. Her friend Alisha Taveras is supportive and brings her groceries when she is unable to get to the grocery store herself. CURRENT FUNCTIONAL STATUS:: Fe was lying in bed when CM met with her. She is AAOX3 and talkative. Fe shares that her pain is currenlty a 10 out of 10. She is tearful. Provider came in and assessed, orders for lidocaine patch and vicoden were placed. Fe shares that she has been suffering with debilitating back pain, and recently had fluid from the bursa in her hips drained. She also reports having an epidural, without much relief. Fe reportedly had a helpful visit at [facility] pain clinic a couple weeks ago. The provider spent 2 hours with her and explained everything. Fe is scheduled to establish care with [facility] Cardiology mid-September. She had been seeing Dr. Perez in [facility]. ADVANCE DIRECTIVES:: [facility] is alt. Wil agent Timi Stone Has patient been provided with info about the portal/API?: Yes Did the patient sign up for the portal?: Yes (Prior to admission) CODE STATUS:: Full Code INSURANCE COVERAGE / FINANCIAL ISSUES:: Medicare. [place] CURRENT HOME/COMMUNITY SERVICES/EQUIPMENT:: Uses a cane and walker (PRN) PRIMARY CARE PHYSICIAN:: Mariajose Cates PATIENT/FAMILY EDUCATION NEEDS:: Review discharge instructions, limitations, medications and plan to follow up with community providers. ask me three. TRANSPORTATION:: Via private vehicle with family. PLAN:: Fe is on telemetry. Her sx are being closely monitored and treated. She is afebrile and her O2 Sat is 99% on RA. Anticipate, Fe will discharge home with [facility] services (if indicated) when medically ready. She will transport via private vehicle with family and follow up with her community providers and discharge plan of care as prescribed.
[2021-09-10 09:18] LABS: Procalcitonin < 0.1 ng/mL
[2021-09-10] MEDS: Sacubitril/Valsartan 49 mg/51 mg TAB 1 EACH PO ×2 (10:45→19:45)
--- NOTE | 2021-09-10 10:51 | IN_ITS ---
Date of service: 09/10/21 Time of Service: 10:51 PT Notes Visit Reasons: Hypoxemia, Pulmonary Hypertension, Edema Physical Therapy Inpatient Initial Evaluation Date: 09/10/2021 Referring Doctor: Azar Escobar MD PT Orders: PT CONSULT: Fall safety assessment Precautions: Fall. Standard. Activity as tolerated. Patient Profile/Admitting Diagnosis: Fe is a 75-year-old female who presented to the ED on 09/09/2021 due to worsening low back pain and sciatica-like symptoms, increasing shortness of breath, and lower extremity edema . Patient is diagnosed with hypoxia, edema of bilateral lower extremities, bilateral groin pain, congestive heart failure exacerbation, and lumbar stenosis. Lumbar spine MRI as of 08/03/2021 revealed : 1. Multilevel degenerative changes in the lumbar spine resulting in central spinal canal neural foraminal stenosis as described above. 2. Left paracentral disc herniation with extrusion posterior to the L4 vertebral body causing left lateral recess stenosis with compression of the left L4 nerve root. 3. Small right-sided L1-L2 disc herniation with extrusion posterior to L PMHX: All Active Problems?(Updated 09/10/21 @ 13:21 by Kirby Dowell) Hypoxia (Acute) Edema of both lower legs (Chronic) Bilateral groin pain (Chronic) & buttock .. see PMR note, 08/2021. JOSTIN (acute kidney injury) (Acute) Cr 1.7 vs 1.5, 09/03/21 .. complicating diuresis. Chronic renal insufficiency, stage II (mild) (Chronic) Mild-Mod CKD G3a (GFR 48, 08/2020). Edema due to congestive heart failure (Chronic) Acute on chronic, presumed CHF.. following diuresis per Dr. Perez direction, 06/2021. Diastolic dysfunction (Chronic) Per Cardio Avani), 09/2018 ... June 29, 2010: LVEDP 23 mm mercury. January 31, 2000. LVEDP 7 mm mercury, rising to 21 mm mercury after 1 L normal saline over 10 minutes. Wedge pressure 19 mm mercury .. mild pulmonary hypertension on right heart catheterization (40-45 MmHG). Hx recurrent pericarditis/ pericardial effusion Sjogren's syndrome. Sacroiliac dysfunction (Acute) 08/23/21 [facility] Pain and spine note Displacement of lumbar intervertebral disc (Acute) 08/23/21 [facility] Pain and spine noteLumbar stenosis (Chronic) with lumbosacral radiculopathy per Pain [facility] Hiatal hernia (Chronic) General/Bariatric Surgery on HOLD 2' CH Hip Pain Widened retrocardiac hiatal hernia, 7cm x 5cm AP. Larger than 2013 Hx GERD, with possible new symptoms (12/2020). Surgery? Osteoarthritis of hips, bilateral (Acute 06/03/21) [facility] xray Abnormal chest CT (Acute) [facility] 06/03/21:? Recommendations to be discussed w/ pt; 1.? F/u imaging of enlarged subcarinal node 3-6mo. 2.? Correlating mammography or breast u/s for breast nodules (non-emergent). 3.? Dedicated imaging for indeterminate splenic lesion. 4.? Repeat Chest CT Q12mo to f/u on nodules bi-lat.Lung nodule < 6cm on CT (Acute) 4mm, per 12/2020 CT (new since 2012).. 6 mo FU [ ]Shrinking lung syndrome (Acute) Restrictive lung disease (Acute) PFT, 01/2021 (Spirometry: Muscle pressures are decreased.. diffusion [capacity] reduced.. Airway resistance normal...Possible mild restrictive lung disease with decreased muscle pressures and a reduced diffusion. (compared to 02/23/2012, total lung capacity & diffusion is reduced .. Clinical Correlation (?) Sjogren's disease (Chronic) GERD (gastroesophageal reflux disease) (Chronic) Tubular adenoma of colon (Chronic 04/25/16) Prediabetes (Acute) A1C 5.8 Hypothyroidism (Chronic) Medical History? Abnormal finding on imaging CT (Lung Ca Screen), 12/2020: Increased markings, 4mm RLL nodule, Dec volume, widened hiatal hernia. Achilles tendonitis Left, with plantar fasciitis Acute nonintractable headache Anterior epistaxis BPPV (benign paroxysmal positional vertigo) Chronic antral gastritis Chronic pain Dysphagia Fatigue severe, sudden onset, napped x hours this week (2' fluconazole?) Femoroacetabular impingement of both hips Former smoker Quit 05/2009 Herpes simplex Hip effusion, right Aspirated, Ortho, 06/2021 Hyperlipidemia (07/23/12) Hx declining statin? Increased BMI (body mass index) (05/11/17) Morbid obesity per [facility] Gen Surge 04/21/21 note Left carpal tunnel syndrome Lichen sclerosus et atrophicus Halbetasol per [facility], 01/2021. (2019. Patient advised to begin topical steroid to vulva) Lipoma of left upper extremity Localized osteoarthritis of right knee Low back pain Neoplasm of uncertain behavior of skin (05/15/14) Left forehead, status post excision with primary closure. Seborrheic keratosis by final pathology. 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 [facility] ([facility]) shows borderline/normal results. 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 Perez on 01/06/20 Posterior tibial tendon dysfunction, left Restless leg syndrome Screening mammography declined 12/2020 EO Severe obstructive sleep apnea 06/13/21 Sleep study noteSevere right groin pain x 2 weeks, with Hx low grade discomfort x months. Hx UrSling. Rt thigh pain described. Shortness of breath Sialoadenitis (10/31/13) To Skin lesion of neck Snoring Stopped smoking with greater than 40 pack year history Strain of muscle of right groin region Tobacco dependence Unilateral primary osteoarthritis, left knee Surgical History? Abdominal hysterectomy ENDOMETRIOSIS; ONE OVARY REMAINS Colonoscopy - IV Sedation (04/25/16) History of ankle surgery hardware present History of arthroplasty of finger of left hand History of bunionectomy of both great toes History of carpal tunnel surgery of left wrist History of colpocleisis History of suburethral sling procedure 12/18/18 Vaginectomy/colpocleisis with Posterior colporrhapy and transobturator mid urethral sling at [facility] Hx of appendectomy Hx of thumb surgery Prolapse of female pelvic organs Stage III post hysterectomy vaginal prolapse with stress incontinence. Rx at [facility] 12/18/18. Status post abdominal hysterectomy Status post tonsillectomy 2018? Tonsillectomy Social History/Home Situation: Lives alone on the second floor of an apartment building with 15 steps to enter with rails on B sides. She states that however that she is planning on moving onto the first floor and will start working on it once she returns home. 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 Independent with [employer] for all mobility ADL tasks at baseline. Still drives. Has a friend who has been a great help to her with grocery shopping. Equipment Owned/DME: [employer] Subjective: Reports 8-9/10 pain in the low back area that radiates to the left side with certain positions and leg movements. Very cautious about how she moves due to pain. Objective: General Observation: In mild distress due to pain level. High BMI. B legs erythematous and shiny, non-pitting edema seen. Mental Status: Alert and oriented as to person, place, time, and purpose. Able to pay attention, focus, and respond appropriately. Pain: 8-9/10 in low back, bilateral groin, and pelvis ROM: Right Upper Extremity: Shoulder Flexion WFL. Shoulder abduction WFL. Elbow flexion WFL. Wrist flexion WFL. Functional opening and closing of hand WFL. Left Upper Extremity: Shoulder Flexion WFL. Shoulder abduction WFL. Elbow flexion WFL. Wrist flexion WFL. Functional opening and closing of hand WFL. Right Lower Extremity: Hip flexion WFL. Hip abduction WFL. Knee flexion WFL. Ankle dorsiflexion WFL. Ankle plantarflexion WFL. Left Lower Extremity: Unable to slide heel in supine due to pain but was able to bedn B knees with assistance from PT. Adducting at the hip caused more pain Strength: Right Upper Extremity: Shoulder flexors 4/5. Shoulder abductors 4/5. Elbow flexors 4/5. Elbow extensors 4/5. 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 Left Upper Extremity: Shoulder flexors 4/5. Shoulder abductors 4/5. Elbow flexors 4/5. Elbow extensors 4/5. 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 Right Lower Extremity: Hip flexors 4-/5. Hip abductors 4-/5. Knee flexors 4-/5. Knee extensors 4-/5. Ankle dorsiflexors 4-/5. Ankle plantarflexors 4-/5. Left Lower Extremity: Hip flexors 2--/5. Hip abductors unable due to pain. Knee flexors 2--/5. Knee extensors 2-/5. Ankle dorsiflexors 4-/5. Ankle plantarflexors 4-/5. Sensation: Denies numbness and tingling in B LE. Pain and light touch intact in B LE Palpation: TTP L lumbar paraspinals Bed Mobility/Transfers: Supine to sit minimal assist to L LE using leg coding specialist home health Sit to stand contact guard assist Stand to sit stand by assist using FWW Bed to wheelchair standby assist using FWW Gait: Instructed patient with level surface ambulation of 10 steps requiring stand by assist using FWW with step-to gait pattern. Gait antalgic. Balance: Static Sitting: Normal Dynamic Sittin: Good Static Standing: Fair Dynamic Standing: Fair Special Tests: Mobility Limitations Standardized Measure [facility] AM-PAC 6 clicks Basic Mobility Inpatient Short Form: Raw Score: 16 CMS Score: 54% deficit Other tests: SLR: positive for R and L ( L worse than R). Unable to raise L leg due to pain. ABle to raise R LE for about 20 degrees due to pain. Trunk mobility: Unable to do trunk motions in sitting or standing due to pain level Informed Consent/Education: Patient was instructed in purpose of PT consult and plan of care. Agreeable to proceed with established PT POC to achieve personal goals. Assessment: Assessment is limited by pain report at 8-10. Premedicate for pain for PT sessions. Patient demonstrates functional mobility decline now requiring a walker for all mobility appointments. Patient presents with clinical signs and symptoms consistent with current/admitting diagnoses that have resulted to mobility limitations, gait instability, generalized weakness, and overall ADL decline as demonstrated by the following impairment level findings: 1. Decreased strength to B LE major muscle groups 2. Impaired sitting/standing balance 3. Impaired activity tolerance 4. Limitation of joint range of motion in B LE joints 5. Shortness of breath 6. Swelling in B legs Impairments are contributing to the following functional limitations: 1. Decline in bed mobility skills 2. Decline in transfer skills 3. Difficulty with ambulation without assistive device and physical assistance 4. Increased completion time for mobility ADL performance 5. Increased risk for falls 6. Difficulty with managing steps alone safely Patient is assessed as a 01260 moderate complexity based on the following: History: 35-year-old femalewith past medical history as indicated above Examination: Demonstrable impairment in strength, balance, and mobility level with underlying impairments and functional limitations as exhibited above as well as deficit score of 54% utilizing the [facility] Mobility Inpatient Short Form Presentation: Evolving Decision Makin moderate complexity Goals: Goals X1 week 1. Supine-Sit independent 2. Sit-Supine independent 3. Sit-Stand independent 4. Stand-Sit independent with FWW 5. Bed-Chair independent with FWW 6. Chair-Bed independent with FWW 7. Independent gait on level surface with use of FWW for at least 300 feet without report of pain nor dyspnea 8. Independent stair negotiation while holding onto B rails for at least 15 steps without report of pain nor dyspnea THERA EX: Posterior pelvic tilt exacerbated pain. Patient responded better to anterior pelvic tilt x 5. Tolerated abdominal drawing-in maneuver held for 5 counts x 5 reps. Only completed x 3 bridging exercises due to pain increase. Plan of Care/Treatment Plan: 1-2x/day, 7 days/week x 1 week. Plan of care has been reviewed with the [employer] [facility] providing the service under Physical Therapy direction. 1. Gradually work on pelvic stabilization exercises as patient can tolerate. 2. Manual therapy to lumbar paraspinals with goal to down regulate muscle guarding to allow functional mobility progression. 3. Initiate Physical Therapy intervention for pain management as needed, strengthening, bed mobility, transfers, gait, stairs, balance training, and use of assistive device. DISCHARGE RECOMMENDATIONS: [] Home with no services [] [] Home with services [specify] [X] Home with outpatient PT. Home when medically cleared by hospitalist. Will benefit from outpatient physical therapy services to continue back rehabilitation to regain independent prior level of function. [] SNF for continued rehabilitation [] [] [facility] [] [] SNF versus LTC based on ability to participate and progress [] TREATMENT CODE/TIME: 75071 x 26 minutes beginning at 10:51 AM. Thank you for the opportunity to participate in the care of this patient. Ameena Miner PT, DPT, CLT [facility] [place], [place]
[2021-09-10] MEDS: Torsemide 20 MG TAB 40 MG PO (12:17)
[2021-09-10] MEDS: Lidocaine 5% Patch 1 PATCH TP (12:17)
--- NOTE | 2021-09-10 13:00 | PT.INTREAT ---
Date of service: 09/10/21 Time of Service: 12:34 PT Notes Visit Reasons: Hypoxemia, Pulmonary Hypertension, Edema Inpatient Physical Therapy Treatment Note [facility] Date: 09/10/2021 PRECAUTIONS: Activity as tolerated, WBAT B SUBJECTIVE: Fe is pleasant and agreeable to participating in PT. She reports that she has not been able to tolerate much ambulation due to significant groin and pelvic pain. OBJECTIVE: PAIN: Patient c/o groin pain, bilaterally, with transfers, gait training and ther ex BED MOBILITY/TRANSFERS Sit-supine: SBA with use of leg area field person Sit-stand: SBA Stand-sit: SBA Chair-bed: SBA GAIT Assistive Device: FWW Weight bearing: WBAT B Assist: SBA Distance: 20' Deviation: Antalgic gait, increased pain THEREX: Patient was instructed in a lower extremity strengthening and stabilization program, completed in a supine position, to include ankle pumps, quad sets and glute sets. Patient was unable to tolerate heel slide and hip abduction exercsie due to pain. ASSESSMENT: Patient tolerated session with complaint of increased groin pain, bilaterally with all activity. She was able to tolerate a slight progression in gait distance with use of FWW support, demonstrating antalgic gait. PLAN: Continue with global strengthening and mobility training for improved mobility and activity tolerance, as tolerated. TREATMENT CODE/TIME: 25 minutes; 74538 x2 (12:34)
--- NOTE | 2021-09-10 16:13 | PGE_ITS ---
Date of Service Date of service: 09/10/21 Time of Service: 15:13 Assessment and Plan Assessment and plan (1) Hypoxia: Start date: 09/10/21 Start time: 15:21 Status: Resolved Assessment and plan: Xray showed no overt pneumonia; she is on Levaquin for possible cellulitis of bilateral lower extremities with edema. Imaging was unrevealing except for chronic lung disease. Patient will have updated echocardiogram with a history of past right-sided heart failure and continue oral diuretics, patient having had increased oral diuretics for the last several days prior to admission without improvement of her swelling or progressive hypoxemia She is maintaing SPO2 >98% on RA. . (2) Edema of both lower legs: Status: Chronic Assessment and plan: Patient has had progressive lower extremity edema which is nonpitting most likely secondary to change in activity, obesity and right-sided heart failure by history. BLE US - no DVT- red 3/4 way up and very warm and painful to touch, +2 pitting edema (3) Bilateral groin pain: Status: Chronic Assessment and plan: This pain is associated with her back mostly with his somewhat tender to range of motion but not the primary source of her pain according to patient. Consider imaging and follow-up with his evaluation in the future. Vicodin for pain Later in the day states the pain is worse, c/o nausea which she reports she frequently has for no obvious reason - ondansetron and hyrdromorphone ordered prn (4) Edema due to congestive heart failure: Status: Chronic Assessment and plan: This is a chronic problem worsening with nonpitting edema and erythema with some concerns of early cellulitis. Continue Levoquin (5) Lumbar stenosis: Status: Chronic Assessment and plan: Patient had an MRI revealing lumbar stenosis or degenerative disc disease with radiculopathy on the left. Continue follow-up with spine [place] and pain clinic at [facility]. PT evaluation while inpatient. Subjective Subjective Patient reports: still having pain, tolerating liquids well, tolerating a regular diet, voiding w/o difficulty and bowel movement; denies diarrhea, vomiting, shortness of breath or fever Interval history since last seen: C/O left buttock pain going down leg usually improved with Gabapentin Exam Narrative Exam Narrative: General: Patient appears older than stated age, moderately obese and in no acute distress. She is very talkative. Alert and oriented x3. HEENT: Normocephalic, eyes with pupils equal and reactive to light symmetrically, extraocular movement intact and sclera anicteric. Oropharynx with moist mucosa. Neck: Supple without JVD. Back: Kyphotic without CVA tenderness. Lungs: Bronchovesicular breath sounds diffusely. Breast: Exam deferred. Heart: Regular rate and rhythm with quiet systolic murmur over apex, no appreciable gallops or rubs. Abdomen: Obese contour, soft nontender to palpation with no palpable hepatosplenomegaly. Genitalia/rectal: Exam deferred. Extremities: Hips have decreased range of motion especially with rotation of the left more than right, straight leg test positive on the left, peripheral pulses decreased with good capillary refill, no clubbing, cyanosis or pitting edema with 3+ nonpitting edema both lower extremities below her feet and 2. Weight the knees with atrophic, shiny erythematous skin with increased warmth to touch over the anterior aspect of the legs. Negative Trever sign bilaterally. Joints have decreased range of motion with no acute joint swelling. Skin: Pale, warm dry skin changes over legs. Neuro: Cranial nerves II to XII grossly intact, no focal motor deficits and no tremor. Psych: Mood normal. No abnormal thought processes. Remote and recent memory intact. Objective Last Vital Signs Temp 36.1 C L 09/10/21 15:05 Pulse 77 09/10/21 15:05 Resp 12 09/10/21 15:05 BP 106/68 09/10/21 15:05 Pulse Ox 100 09/10/21 15:05 Laboratory Results - last 24 hr 09/09/21 09/09/21 09/09/21 17:15 17:50 17:50 WBC 6.67 RBC 3.45 L Hgb 11.2 Hct 33.4 L MCV 97 H MCH 32.5 MCHC 33.5 RDW 13.2 Plt Count 246 MPV 9.2 Immature Gran % 0.1 Neutrophils % 51.9 Lymphocytes % 36.3 Monocytes % 8.8 Eosinophils % 2.5 Basophils % 0.4 Nucleated RBC % 0.0 Absolute Neutrophils 3.45 Absolute Lymphocytes 2.42 Absolute Monocytes 0.59 Absolute Eosinophils 0.17 Absolute Basophils 0.03 D-Dimer Sodium 139 Potassium 4.2 Chloride 100 Carbon Dioxide 31.9 Anion Gap 7.1 BUN 27 H Creatinine 1.7 H Estimated GFR/1.73 m2 29.30 Glucose 89 Calcium 9.9 Magnesium 2.3 Total Bilirubin 0.4 AST 16 ALT 20 Alkaline Phosphatase 78 Troponin I < 50 C-Reactive Protein NT-Pro-B Natriuret Pep 47 Total Protein 7.1 Albumin 3.6 Procalcitonin TSH COVID-19 Source Nasopharynx SARS-CoV-2 (PCR) Negative Influenza Type A (PCR) Negative Influenza Type B (PCR) Negative RSV (PCR) Negative Add-On Test Request 09/09/21 09/09/21 09/09/21 19:20 19:54 20:17 WBC RBC Hgb Hct MCV MCH MCHC RDW Plt Count MPV Immature Gran % Neutrophils % Lymphocytes % Monocytes % Eosinophils % Basophils % Nucleated RBC % Absolute Neutrophils Absolute Lymphocytes Absolute Monocytes Absolute Eosinophils Absolute Basophils D-Dimer 1776 H Sodium Potassium Chloride Carbon Dioxide Anion Gap BUN Creatinine Estimated GFR/1.73 m2 Glucose Calcium Magnesium Total Bilirubin AST ALT Alkaline Phosphatase Troponin I Cancelled C-Reactive Protein NT-Pro-B Natriuret Pep Total Protein Albumin Procalcitonin TSH 3.52 COVID-19 Source SARS-CoV-2 (PCR) Influenza Type A (PCR) Influenza Type B (PCR) RSV (PCR) Add-On Test Request 09/10/21 09/10/21 09/10/21 05:52 05:52 05:52 WBC 6.43 RBC 3.30 L Hgb 10.5 L Hct 32.6 L MCV 99 H MCH 31.8 MCHC 32.2 D RDW 13.0 Plt Count 221 MPV 9.0 Immature Gran % 0.2 Neutrophils % 44.2 Lymphocytes % 39.3 Monocytes % 13.4 Eosinophils % 2.6 Basophils % 0.3 Nucleated RBC % 0.0 Absolute Neutrophils 2.84 Absolute Lymphocytes 2.53 Absolute Monocytes 0.86 H Absolute Eosinophils 0.17 Absolute Basophils 0.02 D-Dimer Sodium 141 Potassium 3.9 Chloride 103 Carbon Dioxide 29.1 Anion Gap 8.9 BUN 23 H Creatinine 1.6 H Estimated GFR/1.73 m2 31.42 Glucose 100 Calcium 9.6 Magnesium Total Bilirubin 0.4 AST 17 ALT 19 Alkaline Phosphatase 75 Troponin I C-Reactive Protein NT-Pro-B Natriuret Pep Total Protein 6.6 Albumin 3.2 L Procalcitonin TSH COVID-19 Source SARS-CoV-2 (PCR) Influenza Type A (PCR) Influenza Type B (PCR) RSV (PCR) Add-On Test Request DONE 09/10/21 09/10/21 05:52 05:52 WBC RBC Hgb Hct MCV MCH MCHC RDW Plt Count MPV Immature Gran % Neutrophils % Lymphocytes % Monocytes % Eosinophils % Basophils % Nucleated RBC % Absolute Neutrophils Absolute Lymphocytes Absolute Monocytes Absolute Eosinophils Absolute Basophils D-Dimer Sodium Potassium Chloride Carbon Dioxide Anion Gap BUN Creatinine Estimated GFR/1.73 m2 Glucose Calcium Magnesium Total Bilirubin AST ALT Alkaline Phosphatase Troponin I C-Reactive Protein 1.01 H NT-Pro-B Natriuret Pep Total Protein Albumin Procalcitonin < 0.1 TSH COVID-19 Source SARS-CoV-2 (PCR) Influenza Type A (PCR) Influenza Type B (PCR) RSV (PCR) Add-On Test Request Reviewed Pertinent PMH: Yes
[2021-09-10] MEDS: Docusate Sodium 100 MG CAP PO (16:59)
[2021-09-10] MEDS: Ondansetron 4 MG/2 ML VIAL IVP (18:29)
[2021-09-10] MEDS: HYDROmorphone 2 MG/ML SYR 1 MG IVP ×2 (18:33→23:58)
[2021-09-11] VITALS (13 sets, daily range): BP systolic 92–118; BP diastolic 59–81; PULSE 62–107; RESP 8–19; TEMP 37–37.5; O2SAT 92–99
[2021-09-11] MEDS: Levothyroxine 75 MCG TAB PO (05:11)
[2021-09-11] MEDS: HYDROmorphone 2 MG/ML SYR 1 MG IVP ×2 (05:21→23:39)
[2021-09-11 06:18] LABS: Abs Immature Grans 0.02 10^3/uL (0.0-0.06); Absolute Basophil Count 0.04 10^3/uL (0.0-0.2); Absolute Eosinophil Count 0.14 10^3/uL (0.0-0.7); Absolute Lymphocyte Count 2.88 10^3/uL (1.2-3.4); Absolute Monocyte Count 0.87 10^3/uL (0.1-0.8); Absolute Neutrophil Count 4.16 10^3/uL (1.2-6.7); Basophils % 0.5; Eosinophils % 1.7; HCT 33.2 % (36.0-46.0); HGB 10.6 g/dL (11.2-15.7); Immature Grans % 0.2; Lymphocytes % 35.5; MCHC 31.9 % (32.0-36.0); MCV 100 fL (80-95); Monocytes % 10.7; Neutrophils % 51.4; Platelet Count 251 10^3/uL (130-400); RBC 3.31 10^6/uL (3.93-5.22); RDW 13.2 % (11.7-14.6); RDW-SD 49.2 fL; WBC 8.11 10^3/uL (4.4-10.8)
[2021-09-11 06:26] LABS: BUN 23 mg/dL (7-18); CREATININE 1.8 mg/dL (0.55-1.02); Calcium 9.7 mg/dL (8.5-10.1); Chloride 100 mmol/L (98-107); Estimated GFR 27.43 (mL/min/1.73m2); Glucose 121 mg/dL (74-106); Potassium 4.1 mmol/L (3.5-5.1); Sodium 139 mmol/L (136-145)
[2021-09-11] MEDS: Albuterol/Ipratropium 3 ML UPD VIAL UPD ×3 (07:47→17:38)
[2021-09-11] MEDS: Tiotropium/Olodaterol 10 PUFF INHALER 2 PUFF IH (07:49)
[2021-09-11] MEDS: Aspirin E.C. 81 MG TABEC PO (08:05)
[2021-09-11] MEDS: Clotrimazole 1% 15 GM TUBE TP ×2 (08:34→20:00)
[2021-09-11] MEDS: Normal Saline Flush 10 ML SYR IVP (08:35)
[2021-09-11] MEDS: Sucralfate 1 GM TAB PO ×4 (08:35→22:31)
[2021-09-11] MEDS: Torsemide 20 MG TAB 40 MG PO (08:35)
[2021-09-11] MEDS: Ondansetron 4 MG/2 ML VIAL IVP (08:35)
[2021-09-11] MEDS: Pantoprazole 40 MG TABCR PO ×2 (08:36→19:59)
[2021-09-11] MEDS: Sacubitril/Valsartan 49 mg/51 mg TAB 1 EACH PO ×2 (08:36→19:59)
[2021-09-11] MEDS: Spironolactone 25 MG TAB PO (08:36)
[2021-09-11] MEDS: Cholecalciferol (Vitamin D3) 1,000 UNIT TAB 2000 UNITS PO (08:36)
[2021-09-11] MEDS: Atorvastatin 40 MG TAB PO (08:36)
[2021-09-11] MEDS: Enoxaparin 30 MG/0.3 ML SYR SC (08:37)
[2021-09-11] MEDS: Isosorbide Mononitrate 30 MG TABCR 60 MG PO (08:44)
--- NOTE | 2021-09-11 10:48 | W.PM.PROGNOT ---
Date of Service Date of service: 09/11/21 Time of Service: 09:49 Assessment and Plan Assessment and plan (1) Hypoxia: Start date: 09/10/21 Start time: 15:21 Status: Resolved Assessment and plan: resolved, oxygenating well on room air will continue pulmonary toileting add incentive spirometer (2) Edema of both lower legs: Status: Chronic Assessment and plan: Patient has had progressive lower extremity edema which is nonpitting most likely secondary to change in activity, obesity and right-sided heart failure by history. BLE US - no DVT- red 3/4 way up and very warm and painful to touch, +2 pitting edema on diuresis add compression elevation continue levaquin day 2 (3) Bilateral groin pain: Status: Chronic Assessment and plan: improving and more chronic now. This pain is associated with her back mostly with his somewhat tender to range of motion but not the primary source of her pain according to patient. Consider imaging and follow-up with his evaluation in the future. she is followed by spine clinic. continue current pain regimen with no changes at this time. ondansetron and hyrdromorphone ordered prn (4) Edema due to congestive heart failure: Status: Chronic Assessment and plan: This is a chronic problem worsening with nonpitting edema and erythema with some concerns of early cellulitis. Continue Levoquin (5) Lumbar stenosis: Status: Chronic Assessment and plan: Patient had an MRI revealing lumbar stenosis or degenerative disc disease with radiculopathy on the left. Continue follow-up with spine [place] and [place] clinic [place] [facility] [place] PT evaluation while inpatient. discussed with DR Zhang (6) DVT prophylaxis: Status: Acute Assessment and plan: heparin in setting of CKD add tubigrips for compression (7) Discharge planning issues: Status: Acute Assessment and plan: anticipate discharge to [facility] discussed with Dr Zhang. Exam Const General: cooperative, comfortable, no acute distress and ill appearing chronically Nutritional Appearance: obese Orientation: alert, awake and oriented x3 HENMT Head: normal to inspection, normocephalic and atraumatic Mouth: oral mucosae normal Chest Chest: normal inspection of the chest Resp Effort & Inspection: normal respiratory effort Auscultation: diminished lung sounds bilaterally, no rhonchi and no wheezes Cardio Rate: regular rate Rhythm: regular rhythm GI Inspection: normal to inspection and obesity Palpation: soft Skin Lesions: no lesions Rashes: rashes noted (bilateral discoloration/erythema L>R, reports improved) Neuro General: patient alert, patient awake, patient oriented x3 and no focal motor deficits Extrem General: edema Laterality: bilateral Objective Last Vital Signs Temp 37.5 C 09/11/21 08:12 Pulse 62 09/11/21 08:12 Resp 16 09/11/21 08:12 BP 100/69 09/11/21 08:12 Pulse Ox 99 09/11/21 08:12 Laboratory Results - last 24 hr 09/11/21 09/11/21 05:57 05:57 WBC 8.11 RBC 3.31 L Hgb 10.6 L Hct 33.2 L MCV 100 H MCH 32.0 MCHC 31.9 L RDW 13.2 Plt Count 251 MPV 9.0 Immature Gran % 0.2 Neutrophils % 51.4 Lymphocytes % 35.5 Monocytes % 10.7 Eosinophils % 1.7 Basophils % 0.5 Nucleated RBC % 0.0 Absolute Neutrophils 4.16 Absolute Lymphocytes 2.88 Absolute Monocytes 0.87 H Absolute Eosinophils 0.14 Absolute Basophils 0.04 Sodium 139 Potassium 4.1 Chloride 100 Carbon Dioxide 33.0 H Anion Gap 6.0 BUN 23 H Creatinine 1.8 H Estimated GFR/1.73 m2 27.43 Glucose 121 H Calcium 9.7
[2021-09-11] MEDS: Lidocaine 5% Patch 1 PATCH TP (10:51)
[2021-09-11] MEDS: HYDROcodone 5/Acetaminophen 325 TAB PO ×2 (10:51→18:23)
--- NOTE | 2021-09-11 13:21 | PT.INTREAT ---
PT Notes Visit Reasons: Hypoxemia, Pulmonary Hypertension, Edema SUBJECTIVE: Pt in recliner when approached for therapy this afternoon, Pt reports groin pain, Pt agreed to participating with therapy despite discomfort. OBJECTIVE:? PAIN: Patient c/o groin pain, bilaterally, with transfers, gait training and ther ex ? TRANSFERS:? Sit-stand: SBA Stand-sit: SBA ? GAIT? Assistive Device: FWW Weight bearing: WBAT B Assist: SBA Distance: 30', 50', 30'? Deviation: Antalgic gait, Pt taking seated rest breaks in between distances. ? STAIRS: Step to 6 steps L/R 5x2set each with pt taking seated rest break in between set. ASSESSMENT: Pt able to complete gait training distance as well as stair activity given enough rest breaks to accommodate increase groin pain with activity. PLAN: Continue with global strengthening and mobility training for improved mobility and activity tolerance, as tolerated. TREATMENT CODE/TIME: 40 minutes; 10964 x3 (12:20 to 1:20)
[2021-09-11] MEDS: Gabapentin 300 MG CAP PO (19:59)
[2021-09-11] MEDS: Heparin 5,000 UNITS/ML VIAL 5000 UNITS SC (20:01)
[2021-09-11] MEDS: rOPINIRole 1 MG TAB 3 MG PO (22:30)
[2021-09-11] MEDS: levoFLOXacin 500 MG/100 ML BAG 100 MG IVPB (22:31)
[2021-09-12] VITALS (12 sets, daily range): BP systolic 94–105; BP diastolic 49–61; PULSE 72–90; RESP 8–18; TEMP 36.1–36.9; O2SAT 95–99
[2021-09-12] MEDS: Levothyroxine 75 MCG TAB PO (05:11)
[2021-09-12] MEDS: Tiotropium/Olodaterol 10 PUFF INHALER 2 PUFF IH (07:51)
[2021-09-12] MEDS: Sacubitril/Valsartan 49 mg/51 mg TAB 1 EACH PO ×2 (07:56→21:08)
[2021-09-12] MEDS: Spironolactone 25 MG TAB PO (07:56)
[2021-09-12] MEDS: Cholecalciferol (Vitamin D3) 1,000 UNIT TAB 2000 UNITS PO (07:56)
[2021-09-12] MEDS: Aspirin E.C. 81 MG TABEC PO (07:56)
[2021-09-12] MEDS: Torsemide 20 MG TAB 40 MG PO (07:57)
[2021-09-12] MEDS: Sucralfate 1 GM TAB PO ×4 (07:57→22:28)
[2021-09-12] MEDS: Atorvastatin 40 MG TAB PO (07:57)
[2021-09-12] MEDS: Pantoprazole 40 MG TABCR PO ×2 (07:57→21:08)
[2021-09-12] MEDS: Isosorbide Mononitrate 30 MG TABCR 60 MG PO (07:57)
[2021-09-12] MEDS: Heparin 5,000 UNITS/ML VIAL 5000 UNITS SC ×2 (07:58→21:08)
[2021-09-12] MEDS: Clotrimazole 1% 15 GM TUBE TP ×2 (07:59→21:08)
--- NOTE | 2021-09-12 09:57 | W.PM.PROGNOT ---
Date of Service Date of service: 09/12/21 Time of Service: 08:58 Assessment and Plan Assessment and plan (1) Hypoxia: Start date: 09/10/21 Start time: 15:21 Status: Resolved Assessment and plan: resolved, oxygenating well on room air will continue pulmonary toileting add incentive spirometer (2) Edema of both lower legs: Status: Chronic Assessment and plan: Patient has had progressive lower extremity edema which is nonpitting most likely secondary to change in activity, obesity and right-sided heart failure by history. BLE US - no DVT- red 3/4 way up and very warm and painful to touch, non pitting edema on diuretics and compression, elevation continue levaquin day 2 (3) Bilateral groin pain: Status: Chronic Assessment and plan: improving and more chronic now. This pain is associated with her back mostly. She is somewhat tender to range of motion but not the primary source of her pain according to patient. Consider imaging and follow-up with his evaluation in the future. she is followed by spine clinic. continue current pain regimen with no changes at this time. ondansetron and hyrdromorphone ordered prn (4) Edema due to congestive heart failure: Status: Chronic Assessment and plan: This is a chronic problem worsening with nonpitting edema and erythema with some concerns of early cellulitis. Continue Levoquin (5) Lumbar stenosis: Status: Chronic Assessment and plan: Patient had an MRI revealing lumbar stenosis or degenerative disc disease with radiculopathy on the left. Continue follow-up with spine [place] and pain clinic at [facility] [place]. PT evaluation while inpatient. discussed with Dr Zhang (6) DVT prophylaxis: Status: Deleted Assessment and plan: heparin in setting of CKD add tubigrips for compression (7) Discharge planning issues: Status: Deleted Assessment and plan: anticipate discharge to [facility] facility discussed with Dr Zhang. Subjective Subjective Patient reports: still having pain, tolerating liquids well, tolerating a regular diet, voiding w/o difficulty and bowel movement; denies diarrhea, vomiting, shortness of breath or fever Interval history since last seen: C/O left buttock pain going down leg usually improved with Gabapentin Exam Const General: cooperative, comfortable, no acute distress and ill appearing chronically Nutritional Appearance: obese Orientation: alert, awake and oriented x3 HENMT Head: normal to inspection, normocephalic and atraumatic Mouth: oral mucosae normal Chest Chest: normal inspection of the chest Resp Effort & Inspection: normal respiratory effort Auscultation: diminished lung sounds bilaterally, no rhonchi and no wheezes Cardio Rate: regular rate Rhythm: regular rhythm GI Inspection: normal to inspection and obesity Palpation: soft Skin Lesions: no lesions Rashes: rashes noted (bilateral discoloration/erythema L>R, reports improved) Neuro General: patient alert, patient awake, patient oriented x3 and no focal motor deficits Extrem General: edema Laterality: bilateral Objective Last Vital Signs Temp 36.9 C 09/12/21 08:13 Pulse 83 09/12/21 08:13 Resp 17 09/12/21 08:13 BP 105/49 L 09/12/21 08:13 Pulse Ox 95 09/12/21 08:13 Reviewed Pertinent PMH: Yes
[2021-09-12] MEDS: HYDROcodone 5/Acetaminophen 325 TAB PO ×3 (10:15→22:28)
[2021-09-12] MEDS: Polyethylene Glycol 3350 17 GM PACKET PO (10:20)
[2021-09-12] MEDS: Gabapentin 300 MG CAP PO ×2 (10:20→21:08)
[2021-09-12] MEDS: Lidocaine 5% Patch 1 PATCH TP (10:20)
[2021-09-12] MEDS: Docusate Sodium 100 MG CAP PO (10:20)
--- NOTE | 2021-09-12 11:29 | PT.INTREAT ---
PT Notes Visit Reasons: Hypoxemia, Pulmonary Hypertension, Edema SUBJECTIVE: Pt reports that she had a rough night, not able to sleep well due to groin/hip pain, Pt suspects that the step up activity from previous session might have brought about the pain, Pt agrees to participating with therapy session this morning. OBJECTIVE:? PAIN: Patient c/o groin pain, bilaterally, with transfers, gait training and ther ex ? TRANSFERS:? Sit-stand: SBA Stand-sit: SBA ? GAIT? Assistive Device: FWW Weight bearing: WBAT B Assist: SBA Distance: 70', 110' with WC follow and seated rest break in between distances.? Deviation: Antalgic gait, Pt requiring seated rest breaks in between distances. ASSESSMENT: Pt able to tolerate increased distance and duration with this session as long as pt takes enough rest period to accommodate SOB and pt groin discomfort. PLAN: Continue with global strengthening and mobility training for improved mobility and activity tolerance, as tolerated. TREATMENT CODE/TIME: 30 minutes; 66242 x2 (9:48 to 10:18)
[2021-09-12] MEDS: Albuterol/Ipratropium 3 ML UPD VIAL UPD ×3 (11:53→23:19)
[2021-09-12] MEDS: rOPINIRole 1 MG TAB 3 MG PO (22:28)
[2021-09-13] VITALS (13 sets, daily range): BP systolic 84–110; BP diastolic 56–69; PULSE 68–98; RESP 8–20; TEMP 36.4–37; O2SAT 95–100
[2021-09-13] MEDS: HYDROmorphone 2 MG/ML SYR 1 MG IVP ×2 (01:48→22:38)
[2021-09-13] MEDS: Albuterol/Ipratropium 3 ML UPD VIAL UPD ×3 (06:09→16:53)
[2021-09-13] MEDS: Levothyroxine 75 MCG TAB PO (06:09)
[2021-09-13] MEDS: Tiotropium/Olodaterol 10 PUFF INHALER 2 PUFF IH (08:31)
[2021-09-13] MEDS: Aspirin E.C. 81 MG TABEC PO (09:02)
[2021-09-13] MEDS: Sucralfate 1 GM TAB PO ×4 (09:02→21:20)
[2021-09-13] MEDS: Cholecalciferol (Vitamin D3) 1,000 UNIT TAB 2000 UNITS PO (09:02)
[2021-09-13] MEDS: Atorvastatin 40 MG TAB PO (09:03)
[2021-09-13] MEDS: Pantoprazole 40 MG TABCR PO ×2 (09:03→19:34)
[2021-09-13] MEDS: Heparin 5,000 UNITS/ML VIAL 5000 UNITS SC ×2 (09:03→19:36)
[2021-09-13] MEDS: Clotrimazole 1% 15 GM TUBE TP ×2 (09:04→19:35)
[2021-09-13] MEDS: Lidocaine 5% Patch 1 PATCH TP (10:33)
[2021-09-13] MEDS: Docusate Sodium 100 MG CAP PO ×2 (10:38→19:35)
[2021-09-13] MEDS: HYDROcodone 5/Acetaminophen 325 TAB PO ×2 (10:38→17:58)
[2021-09-13] MEDS: Polyethylene Glycol 3350 17 GM PACKET PO (10:38)
--- NOTE | 2021-09-13 10:50 | PTTR_ITS ---
Date of service: 09/13/21 Time of Service: 10:20 PT Notes Visit Reasons: Hypoxemia, Pulmonary Hypertension, Edema Inpatient Physical Therapy Treatment Note [facility] Date: 09/13/2021 PRECAUTIONS: LBP, Activity as tolerated SUBJECTIVE: Fe is pleasant and agreeable to participating in PT. She reports that she had been doing better with ambulation this weekend and feels that she could successfully discharge to home versus SNF. She states that she has help at home and would like services. OBJECTIVE: PAIN: Patient rates LBP as an 8/10 with ambulation with FWW BED MOBILITY/TRANSFERS Supine-sit: I with HOB at 50 degrees Sit-supine: SBA with HOB flat Sit-stand: I Stand-sit: I Bed-Chair: I Chair-bed: I GAIT Assistive Device: FWW Weight bearing: Full Assist: I in a.m.; S in p.m. Distance: 20' +15' in a.m.; 75' + 125' in p.m. Deviation: Slightly antalgic gait, seated rest (in p.m.) THEREX: Patient was instructed in an UE and LE strengthening program, completed in a seated position, to include: heel raises, ankle pumps, hip flexion, LAQ, hip aduction (with pain), shoulder flexion and shoulder horizontal abduction. TOILETING: Patient toileted independently STAIRS: Up/down 3x4 and 2x6 using B rails and a step-to pattern with supervision and cueing for sequence for pain management ASSESSMENT: Patient tolerated session with complaint of increased LBP with gait training and ther ex completion. She does demonstrate independence with short- distance ambulation with FWW support and with toileting at this time. PLAN: Continue with global strengthening and transfer training for improved mobility and activity tolerance. TREATMENT CODE/TIME: Session 1: 21 minutes; 64720 (10:20) Session 2: 21 minutes; [id number] x2 (13:53)
[2021-09-13] MEDS: Gabapentin 300 MG CAP PO ×2 (11:02→17:58)
[2021-09-13 12:32] LABS: Abs Immature Grans 0.01 10^3/uL (0.0-0.06); Absolute Basophil Count 0.02 10^3/uL (0.0-0.2); Absolute Eosinophil Count 0.22 10^3/uL (0.0-0.7); Absolute Lymphocyte Count 1.67 10^3/uL (1.2-3.4); Absolute Monocyte Count 0.49 10^3/uL (0.1-0.8); Absolute Neutrophil Count 3.42 10^3/uL (1.2-6.7); Basophils % 0.3; Eosinophils % 3.8; HCT 32.7 % (36.0-46.0); HGB 10.7 g/dL (11.2-15.7); Immature Grans % 0.2; Lymphocytes % 28.6; MCH 32.3 pg (27.0-33.0); MCHC 32.7 % (32.0-36.0); MCV 99 fL (80-95); MPV 8.9 fL (8.0-11.0); Monocytes % 8.4; Neutrophils % 58.7; Platelet Count 231 10^3/uL (130-400); RBC 3.31 10^6/uL (3.93-5.22); RDW-SD 46.5 fL; WBC 5.83 10^3/uL (4.4-10.8)
[2021-09-13 12:52] LABS: Anion Gap 7.9 mmol/L (3-11); BUN 33 mg/dL (7-18); CO2 32.1 mmol/L (21.0-32.0); CREATININE 2.1 mg/dL (0.55-1.02); Calcium 9.2 mg/dL (8.5-10.1); Chloride 99 mmol/L (98-107); Estimated GFR 22.96 (mL/min/1.73m2); Glucose 100 mg/dL (74-106); Potassium 4.5 mmol/L (3.5-5.1); Sodium 139 mmol/L (136-145)
--- NOTE | 2021-09-13 14:11 | PDOC.CMPRO ---
- If Service Date Differs Date of service: 09/13/21 Time of Service: 14:11 Care Management Progress Note S/O: Fe was sitting in her chair when CM met with her. She is alert, oriented and easy to engage in conversation. Fe became dizzy and hypotensive this morning and her vitals are being monitored. eF and PT discussed SNF for STR vs discharge home with full VNA services (with lift assist). Fe would like to discharge home when medically ready, PT agrees to this plan. A: 75 year old female admitted to [facility] on 09/09/21 for Hypoxemia, Pulmonary HTN, Edema P: Anticipate, Fe will discharge home with [facility] (RN, PT, OT, [employer]) when medically ready. She will transport via [facility] W/C van with LIFT assist. Fe will follow up with her community providers and discharge plan of care as prescribed.
--- NOTE | 2021-09-13 14:37 | PGE_ITS ---
Date of Service Date of service: 09/13/21 Time of Service: 13:37 Assessment and Plan Assessment and plan (1) Edema of both lower legs: Status: Chronic Assessment and plan: Patient has had progressive lower extremity edema which is nonpitting most likely secondary to change in activity, obesity and right-sided heart failure by history. BLE US - no DVT- red 3/4 way up and very warm and painful to touch, +2 pitting edema on diuresis add compression elevation continue levaquin day 07/15 (2) Bilateral groin pain: Status: Chronic Assessment and plan: improving and more chronic now. This pain is associated with her back mostly with his somewhat tender to range of motion but not the primary source of her pain according to patient. Consider imaging and follow-up with his evaluation in the future. she is followed by spine clinic. continue current pain regimen with no changes at this time. ondansetron and hyrdromorphone ordered prn (3) Edema due to congestive heart failure: Status: Chronic Assessment and plan: This is a chronic problem worsening with nonpitting edema and erythema with some concerns of early cellulitis. (4) Lumbar stenosis: Status: Chronic Assessment and plan: Patient had an MRI revealing lumbar stenosis or degenerative disc disease with radiculopathy on the left. Continue follow-up with spine [place] and [place] [facility] [place] PT evaluation while inpatient. (5) DVT prophylaxis: Status: Acute Assessment and plan: heparin in setting of CKD add tubigrips for compression (6) Discharge planning issues: Status: Acute Assessment and plan: anticipate discharge to home with new home health services. discussed with Dr Zhang. Subjective Subjective Patient reports: no new complaints, feels better, tolerating liquids well, tolerating a regular diet and afebrile Interval history since last seen: working with PT and now would prefer to go home Exam Const General: cooperative, comfortable, no acute distress and ill appearing chronically Nutritional Appearance: obese Orientation: alert, awake and oriented x3 HENMT Head: normal to inspection, normocephalic and atraumatic Mouth: oral mucosae normal Chest Chest: normal inspection of the chest Resp Effort & Inspection: normal respiratory effort Auscultation: diminished lung sounds bilaterally, no rhonchi and no wheezes Cardio Rate: regular rate Rhythm: regular rhythm GI Inspection: normal to inspection and obesity Palpation: soft Skin Lesions: no lesions Rashes: rashes noted (bilateral discoloration/erythema L>R, reports improved) Neuro General: patient alert, patient awake, patient oriented x3 and no focal motor deficits Extrem General: edema Laterality: bilateral Objective Last Vital Signs Temp 37 C 09/13/21 07:48 Pulse 98 H 09/13/21 12:54 Resp 18 09/13/21 07:48 BP 101/69 09/13/21 12:54 Pulse Ox 99 09/13/21 07:48 Laboratory Results - last 24 hr 09/13/21 09/13/21 12:05 12:05 WBC 5.83 RBC 3.31 L Hgb 10.7 L Hct 32.7 L MCV 99 H MCH 32.3 MCHC 32.7 D RDW 13.0 Plt Count 231 MPV 8.9 Immature Gran % 0.2 Neutrophils % 58.7 Lymphocytes % 28.6 Monocytes % 8.4 Eosinophils % 3.8 Basophils % 0.3 Nucleated RBC % 0.0 Absolute Neutrophils 3.42 Absolute Lymphocytes 1.67 Absolute Monocytes 0.49 Absolute Eosinophils 0.22 Absolute Basophils 0.02 Sodium 139 Potassium 4.5 Chloride 99 Carbon Dioxide 32.1 H Anion Gap 7.9 BUN 33 H Creatinine 2.1 H Estimated GFR/1.73 m2 22.96 Glucose 100 Calcium 9.2
[2021-09-13] MEDS: Sacubitril/Valsartan 49 mg/51 mg TAB 1 EACH PO (19:35)
[2021-09-13] MEDS: Acetaminophen 325 MG TAB 650 MG PO (19:35)
[2021-09-13] MEDS: levoFLOXacin 500 MG/100 ML BAG 100 MG IVPB (21:20)
[2021-09-13] MEDS: rOPINIRole 1 MG TAB 3 MG PO (21:20)
[2021-09-14] VITALS (10 sets, daily range): BP systolic 99–111; BP diastolic 54–73; PULSE 82–100; RESP 1–20; TEMP 36.5–36.6; O2SAT 93–99
[2021-09-14] MEDS: Albuterol/Ipratropium 3 ML UPD VIAL UPD ×3 (00:41→11:16)
[2021-09-14] MEDS: HYDROcodone 5/Acetaminophen 325 TAB PO (04:08)
[2021-09-14] MEDS: Levothyroxine 75 MCG TAB PO (06:05)
[2021-09-14 06:19] LABS: Platelet Count 204 10^3/uL (130-400)
[2021-09-14] MEDS: Tiotropium/Olodaterol 10 PUFF INHALER 2 PUFF IH (07:33)
[2021-09-14] MEDS: Spironolactone 25 MG TAB PO (07:52)
[2021-09-14] MEDS: Cholecalciferol (Vitamin D3) 1,000 UNIT TAB 2000 UNITS PO (07:52)
[2021-09-14] MEDS: Atorvastatin 40 MG TAB PO (07:52)
[2021-09-14] MEDS: Torsemide 20 MG TAB 40 MG PO (07:52)
[2021-09-14] MEDS: Aspirin E.C. 81 MG TABEC PO (07:52)
[2021-09-14] MEDS: Sucralfate 1 GM TAB PO ×2 (07:52→10:58)
[2021-09-14] MEDS: Heparin 5,000 UNITS/ML VIAL 5000 UNITS SC (07:53)
[2021-09-14] MEDS: Pantoprazole 40 MG TABCR PO (07:53)
[2021-09-14] MEDS: Sacubitril/Valsartan 49 mg/51 mg TAB 1 EACH PO (07:53)
[2021-09-14] MEDS: Isosorbide Mononitrate 30 MG TABCR 60 MG PO (07:53)
[2021-09-14] MEDS: Clotrimazole 1% 15 GM TUBE TP (08:01)
[2021-09-14] MEDS: Lidocaine 5% Patch 1 PATCH TP (10:58)
--- NOTE | 2021-09-14 11:22 | PDOC.CMDIS ---
- If Service Date Differs Date of service: 09/14/21 Time of Service: 11:22 LACE Index Scoring Tool - Questions: Length of Stay (in days): 4 - 6 Acuity (Admit via E.D.?): Yes Comorbidities: Any Tumor, Liver or Renal Disease E.D. Visits: 1 - Answers: Total Score: 13 Risk of Readmission: High Risk Care Management Discharge Reason for Hospitalization: Hypoxia, LLE, Bilateral groin pain, CHF Discharge Plan: Fe is discharged home via [facility] W[facility] Van, with lift assistance. Ryan Milian/Marilia MCGEE RN/PT/OT/BUSINESS CONTROL SPECIALIST services ordered.Fe will follow up with her community providers as scheduled and discharge plan of care as prescribed. Patient/Family Education Needs: Review discharge instructions, limitations, medications and plan to follow up with community providers. ask me three. Services Needed at Discharge: Home Health Care Services (Rukhsana MCGEE RN, PT, OT, BUSINESS CONTROL SPECIALIST. (CM faxed referral and notified VNA).), Transportation ([facility] with Lift Assist ([facility]) coordinated by JAIDEN)
--- NOTE | 2021-09-14 11:36 | W.PM.DS.N ---
Date of service: 09/14/21 Time of Service: 11:36 DS: Diagnosis Discharge Diagnosis (1) Edema of both lower legs: Status: Chronic Asessment and Plan: diuresed with improvement encourage compression, elevation (2) Bilateral groin pain: Status: Chronic Asessment and Plan: chronic, improved (3) Edema due to congestive heart failure: Status: Chronic Asessment and Plan: improved. [place] [facility] [place]4) Lumbar stenosis: Status: Chronic Asessment and Plan: followed by [place] [facility] [place] Plan Disposition Patient Disposition: HOME W/HOME HEALTH SERVICE Condition: Stable Discharge Details Reason For Visit: Hypoxemia, Pulmonary Hypertension, Edema Admit Date/Time: 09/09/21 22:40 Admit Provider: Kirby Dowell Attending Provider: Kirby Dowell Primary Care Provider: Mariajose Cuenca Hospital Course Hospital Course: This is a 75-year-old lady who had sudden onset of low back pain in May 2021 which went through her left hip.? She had no specific injury but is overweight and sedentary.? With her increased pain she has been gaining weight and slowly increasing swelling in her lower extremities which is nonpitting but becoming hard and red with erythema over the anterior legs along with atrophy of the skin but no breakdown.? The patient's PCP has been increasing her oral intake for several days prior to presentation.? This did not help her edema.? The patient has had progressive discomfort in her left lower extremity with pain in the L4 nerve root region causing radicular symptoms.? She has been seen by the pain clinic and has received an epidural with some relief for short time? She did have an MRI prior to that procedure revealing degenerative disc disease with nerve root compression at the L4 level on the left.? There is no plan for surgery at this time.? She reported to the ED because of hypoxemia with a pulse oximeter in the mid 80% range and evaluation did not reveal acute pulmonary embolus and labs were fairly stable except for positive D-dimer which could be from inflammation.? Because of the patient's erythema and tenderness over her legs she was started on Levaquin though the WBC was normal and no fever was reported.? She did have tenderness which was noted.? The patient does live alone and was difficult to perform ADL activity. She was admitted to med/surg for further monitoring and management. PT evaluated and she was reambulated safely. She was diuresed with good effect. and she completed 6 days of levaquin with improvement in all her symptoms. She initially was referred to skilled facility but now feels safe to be discharged home. case management has been following and she will be discharged to home with home health services. she should continue to follow up outpatient with [place] clinic [place] [facility] and cardiology as scheduled. discharge discussed with DR Flanagan Home Meds and New Rx's Prescriptions: Continued nitroglycerin 0.4 mg tablet, sublingual 0.4 mg sublingual Q5M PRN (Reason: chest pain) Qty: 30 1RF Rx Instructions: do not exceed 3 doses per episode halobetasol propionate 0.05 % ointment 1 applic topical BID Qty: 50 4RF Rx Instructions: apply tiny amount to vulvar bid for 2weeks then daily for 2weeks then twice weekly clotrimazole 1 % ointment 1 applic topical BID 14 Days Qty: 90 1RF Rx Instructions: apply to lower abdomen and upper thigh rash ammonium lactate 12 % cream 1 applic topical BID Qty: 385 1RF Rx Instructions: Trial for dry skin, edema Entresto 49-51 mg tablet 1 tab PO BID atorvastatin 40 mg tablet 40 mg PO DAILY isosorbide mononitrate 30 mg tablet extended release 24 hr 60 mg PO DAILY Label Comments: Pt states she takes 60mg daily (Dr. Perez - Cardiology) No country hosp. 04/2021 EO Stiolto Respimat 2.5-2.5 mcg/actuation mist 2 puff inhalation DAILY Qty: 4 5RF gabapentin 300 mg capsule See Rx Instructions PO BID PRN (Reason: neuralgia) Qty: 60 1RF Rx Instructions: 300mg orally twice a day PRN; may hold daytime dose for drowsiness torsemide 20 mg tablet See Rx Instructions PO DAILY MDD 60mg Qty: 90 1RF Rx Instructions: 40mg, 60mg for severe edema as per discussion with Cardiology or PCP orally daily; Increased dose for diuresis; may consider 60mg for severe edema. spironolactone 25 mg tablet 25 mg PO DAILY Qty: 30 0RF Rx Instructions: Trial for severe edema cholecalciferol (vitamin D3) [Vitamin D3] 2,000 UNIT capsule 2,000 unit PO DAILY Label Comments: 01/18/17-now takes 5000U/pps meclizine 25 mg tablet 12.5 - 25 mg PO TID PRN (Reason: dizziness) Qty: 30 4RF levothyroxine 50 mcg tablet 50 mcg PO DAILY Qty: 90 1RF Rx Instructions: take one tablet daily ropinirole 3 mg tablet 3 mg PO QHS Qty: 90 1RF Rx Instructions: 03-16-21 Increased dose/ take one tablet 1-3 hours before bedtime pantoprazole 40 mg tablet,delayed release (DR/EC) 40 mg PO BID Qty: 60 2RF sucralfate 100 mg/mL suspension 10 ml PO QACHS Qty: 420 1RF Rx Instructions: Trial for break-through reflux levothyroxine 75 mcg tablet 75 mcg PO DAILY Qty: 90 1RF Rx Instructions: Increase based on 09/03/21 labs aspirin [Aspir-81] 81 MG tablet,delayed release (DR/EC) 81 mg PO DAILY Changed hydrocodone-acetaminophen 5-325 mg tablet 1 tab PO Q4H PRN MDD 10mg hydrocodone PRN (Reason: pain) Qty: 16 0RF Rx Instructions: For severe hip pain, short-term Discharge Instructions Instructions: Chronic Back Pain (DC), Edema (DC) Stand Alone Forms: Nursing Discharge Form Referrals: Mariajose Cuenca DO [Primary Care Provider] - 09/24/21 3:00 pm Activity:: Activity as Tolerated Equipment/Supplies:: No Equipment Needed Diet:: Low Sodium Discharge Orders Discharge Orders: Discharge Order (Routine); Ordered 09/14/21 Ordered By: Yamile Estevez Discharge Data Discharge Date/Time-TO BE ENTERED AT DEPARTURE: 09/14/21 14:01 DS: Summary Time Spent with Patient providing and/or coordinating discharge services: Greater than 30 minutes Status at Discharge Functional status at discharge: uses cane/walker Overall status at discharge: patient is progressing back to baseline Mental Status: mental status grossly normal Speech and Movement: speech and movement normal Mood: congruent mood Affect: normal affect Exam Psych Mental Status: mental status grossly normal Speech and Movement: speech and movement normal Mood: congruent mood Affect: normal affect DS: Data Vitals/I&O Vitals and I&O: Vital Signs Temperature 36.5 C 09/14/21 11:27 Temperature Source Tympanic 09/14/21 11:27 Pulse 82 09/14/21 11:27 Pulse Rhythm Regular 09/14/21 10:17 Pulse 101 H 09/09/21 22:30 Respiratory Rate 18 09/14/21 11:27 Respiratory Effort Non-Labored 09/14/21 10:17 Respiratory Depth Normal 09/14/21 10:17 Respiratory Pattern Normal 09/14/21 10:17 Blood Pressure 108/73 09/14/21 11:27 Blood Pressure Mean 77 09/09/21 21:27 Blood Pressure Position Supine 09/09/21 16:31 Pulse Oximetry 93 09/14/21 11:27 Oxygen Delivery Method Room Air 09/14/21 11:27 Oxygen Flow Rate 0 09/14/21 11:27 Pain Level 0 09/14/21 11:27 Comment 09/13/21 15:19 Intake & Output 09/13/21 09/13/21 09/14/21 11:59 23:59 11:59 Intake Total 120 / 930 810 / 930 370 / 370 Output Total 1500 / 2300 800 / 2300 2575 / 2575 Balance -1380 / -1370 10 / -1370 -2205 / -2205 Weight 114.2 kg 113.3 kg Intake: IV 100 / 100 Oral 120 / 830 710 / 830 370 / 370 Output: Urine 1500 / 2300 800 / 2300 2575 / 2575 Other: Urine Color Yellow Yellow Yellow Urine Appearance Clear Clear Clear Urine Odor Normal None Normal Comment Void x1 in the toilet. Void x1 in the toilet. Pt. missed the hat; RN unable to determine urine amount. Stool Size Small Stool Characteristics Soft Brown Voiding Methods Toilet Toilet Toilet Data Completed and Pending Labs on day of discharge: Labs from last 24 hours 09/14/21 09/13/21 09/13/21 05:38 12:05 12:05 WBC 5.83 RBC 3.31 L Hgb 10.7 L Hct 32.7 L MCV 99 H MCH 32.3 MCHC 32.7 D RDW 13.0 Plt Count 204 231 MPV 8.9 Immature Gran % 0.2 Neutrophils % 58.7 Lymphocytes % 28.6 Monocytes % 8.4 Eosinophils % 3.8 Basophils % 0.3 Nucleated RBC % 0.0 Absolute Neutrophils 3.42 Absolute Lymphocytes 1.67 Absolute Monocytes 0.49 Absolute Eosinophils 0.22 Absolute Basophils 0.02 Sodium 139 Potassium 4.5 Chloride 99 Carbon Dioxide 32.1 H Anion Gap 7.9 BUN 33 H Creatinine 2.1 H Estimated GFR/1.73 m2 22.96 Glucose 100 Calcium 9.2 Preliminary micro results at discharge 09/09/21 22:40 Blood Culture - Preliminary Blood NO GROWTH 96 HOURS 09/09/21 22:50 Blood Culture - Preliminary Blood NO GROWTH 96 HOURS PFSH All Active Problems (Updated 09/11/21 @ 15:09 by Yamile Estevez NP) Discharge planning issues (Acute) DVT prophylaxis (Acute) Edema of both lower legs (Chronic) Bilateral groin pain (Chronic) & buttock .. see PMR note, 08/2021. JOSTIN (acute kidney injury) (Acute) Cr 1.7 vs 1.5, 09/03/21 .. complicating diuresis. Chronic renal insufficiency, stage II (mild) (Chronic) Mild-Mod CKD G3a (GFR 48, 08/2020). Edema due to congestive heart failure (Chronic) Acute on chronic, presumed CHF.. following diuresis per Dr. Perez direction, 06/2021. Diastolic dysfunction (Chronic) Per Cardio Avani), 09/2018 ... June 29, 2010: LVEDP 23 mm mercury. January 31, 2000. LVEDP 7 mm mercury, rising to 21 mm mercury after 1 L normal saline over 10 minutes. Wedge pressure 19 mm mercury .. mild pulmonary hypertension on right heart catheterization (40-45 MmHG). Hx recurrent pericarditis/ pericardial effusion, Sjogren's syndrome. Sacroiliac dysfunction (Acute) 08/23/21 [facility] [place] spine [place] Displacement of lumbar intervertebral disc (Acute) 08/23/21 [facility] [place] and spine note Lumbar stenosis (Chronic) with lumbosacral radiculopathy per Pain Clinic Hiatal hernia (Chronic) General/Bariatric Surgery on HOLD 2' CHF, Hip Pain. Widened retrocardiac hiatal hernia, 7cm x 5cm AP. Larger than 2012..Hx GERD, with possible new symptoms (12/2020). Surgery? Osteoarthritis of hips, bilateral (Acute 06/03/21) [facility] xray Abnormal chest CT (Acute) [facility] 06/03/21: Recommendations to be discussed w/ pt; 1. F/u imaging of enlarged subcarinal node 3-6mo. 2. Correlating mammography or breast u/s for breast nodules (non-emergent). 3. Dedicated imaging for indeterminate splenic lesion. 4. Repeat Chest CT Q12mo to f/u on nodules bi-lat. Lung nodule < 6cm on CT (Acute) 4mm, per 12/2020 CT (new since 2012).. 6 mo FU [ ] Shrinking lung syndrome (Acute) Restrictive lung disease (Acute) PFT, 01/2021 (Spirometry: Muscle pressures are decreased.. diffusion [capacity] reduced.. Airway resistance normal...Possible mild restrictive lung disease with decreased muscle pressures and a reduced diffusion. (compared to 02/23/2012, total lung capacity & diffusion is reduced .. Clinical Correlation (?) ik Sjogren's disease (Chronic) GERD (gastroesophageal reflux disease) (Chronic) Tubular adenoma of colon (Chronic 04/25/16) Prediabetes (Acute) A1C 5.8 Hypothyroidism (Chronic) Medical History Abnormal finding on imaging CT (Lung Ca Screen), 12/2020: Increased markings, 4mm RLL nodule, Dec volume, widened hiatal hernia. Achilles tendonitis Left, with plantar fasciitis Acute nonintractable headache Anterior epistaxis BPPV (benign paroxysmal positional vertigo) Chronic antral gastritis Chronic pain Dysphagia Fatigue severe, sudden onset, napped x hours this week (2' fluconazole?) Femoroacetabular impingement of both hips Former smoker Quit 05/2009 Herpes simplex Hip effusion, right Aspirated, Ortho, 06/2021 Hyperlipidemia (07/23/12) Hx declining statin? Increased BMI (body mass index) (05/11/17) Morbid obesity per [facility] Gen Surge 04/21/21 note Left carpal tunnel syndrome Lichen sclerosus et atrophicus Halbetasol per [facility], 01/2021. (2019. Patient advised to begin topical steroid to vulva) Lipoma of left upper extremity Localized osteoarthritis of right knee Low back pain Neoplasm of uncertain behavior of skin (05/15/14) Left forehead, status post excision with primary closure. Seborrheic keratosis by final pathology. 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 [facility] ([facility]) shows borderline/normal results. Pericardial disease (07/23/12) 2000: idiopathic pericarditis requiring pericardial window; 2013: recurrence - responded to indocin and colchicine 2020: F/U with Dr. Perez on 01/06/20 Posterior tibial tendon dysfunction, left Restless leg syndrome Screening mammography declined 12/2020 EO Severe obstructive sleep apnea 06/13/21 Sleep study note Severe right groin pain x 2 weeks, with Hx low grade discomfort x months. Hx UrSling. Rt thigh pain described. Shortness of breath Sialoadenitis (10/31/13) Skin lesion of neck Snoring Stopped smoking with greater than 40 pack year history Strain of muscle of right groin region Tobacco dependence Unilateral primary osteoarthritis, left knee Surgical History Abdominal hysterectomy ENDOMETRIOSIS; ONE OVARY REMAINS Colonoscopy - IV Sedation (04/25/16) History of ankle surgery hardware present History of arthroplasty of finger of left hand History of bunionectomy of both great toes History of carpal tunnel surgery of left wrist History of colpocleisis History of suburethral sling procedure 12/18/18 Vaginectomy/colpocleisis with Posterior colporrhapy and transobturator mid urethral sling [place] [facility] Hx of appendectomy Hx of thumb surgery Prolapse of female pelvic organs Stage III post hysterectomy vaginal prolapse with stress incontinence. Rx at [facility] 12/18/18. Status post abdominal hysterectomy Status post tonsillectomy 2018? Tonsillectomy Family History Mother , AGE 91 Alzheimer disease Father , AGE 86 Essential hypertension AAA (abdominal aortic aneurysm) Alzheimer disease Heart disease Hyperlipidemia Bladder cancer Sister No problems noted. Maternal Grandfather , SHOT AGE 35 No problems noted. Paternal Grandfather , AGE 93 Heart disease Maternal Grandmother , AGE 64 Uterine cancer Paternal Grandmother , AGE 73 AAA (abdominal aortic aneurysm) Stroke Son No problems noted. Son Asthma Son No problems noted. Social History Smoking/Tobacco Use Status: Former Tobacco Use Tobacco: How many years used: 45 Smoking risk assessment performed?: Yes Alcohol Intake: current Alcohol Intake frequency: holidays/special occasions only Alcohol type: beer and wine Drug use: Never Substance use type: does not use Counseling given: No Counseling provided: other Adopted: No Caregiver/Support person: No Foster care: No Household members: none Housing: house Number of Children: 3 number of grandchildren: 6 Communication Needs: None Education Level: college Details: Associate's Degree Do you need help understanding health information?: Never 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 [employer] Pets and animals: No Sexually active: No Do you think of yourself as: straight/heterosexual Current gender identity: female What is your relationship status?: How often do you talk on the phone with friends or family?: three or more times per week How often do you get together with friends or relatives?: twice per week Do you belong to any clubs or organized social groups?: yes Panel score (0-1 are the most socially isolated patients): 2 What type of physical activity do you participate in: weight lifting and occasional exercise Duration: > 90 minutes/day Frequency: daily Any/Sikhism: Yarsanism Special any needs: No Seatbelt use: always Helmet use: No Drive intox or ride w/intox 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
--- NOTE | 2021-09-14 11:38 | PT.INTREAT ---
Date of service: 09/14/21 Time of Service: 10:23 PT Notes Visit Reasons: Hypoxemia, Pulmonary Hypertension, Edema Inpatient Physical Therapy Treatment Note [facility] Date: 09/14/2021 PRECAUTIONS: LBP, Activity as tolerated SUBJECTIVE: Fe is pleasant and agreeable to participating in PT. She expresses concern regarding whether the pain management regimen that she is on here will transfer to home with her or not. (Concerns addressed with hospitalist, Yamile Estevez, post-session.) OBJECTIVE: Discussed concerns regarding upcoming discharge to home, potential barriers, and home supports with patient. PAIN: Patient c/o LBP with gait training BED MOBILITY/TRANSFERS Sit-stand: I Stand-sit: I Bed-Chair: I Chair-bed: I GAIT Assistive Device: FWW Weight bearing: Full Assist: I Distance: 200' Deviation: Slightly antalgic gait ASSESSMENT: Patient tolerated session with complaint of increased LBP with gait training. She does demonstrate independence with ambulation with FWW support and with toileting at this time. PLAN: Patient to discharge to home later today, per provider. Recommend follow up with PT and OT upon discharge. TREATMENT CODE/TIME: 24 minutes; [id number] x2 (10:23)
--- NOTE | 2021-09-14 13:02 | PDOC.HHF2F_ITS ---
Home Health Certification Home Health Certification: 1. Encounter Date and Reason I certify that Fe Ibanez was seen by Yamile Estevez on 09/14/21 and that I had a [id number] encounter with this patient that meets the physician face to face encounter requirements. 2. Clinical Findings Supporting Skilled Need and Homebound Status I certify that home health services are medically necessary, include either intermittent retirement and/or physical/speech therapy, and that this patie nt is homebound in that absences from the home require considerable and taxing effort and are infrequent or of short duration, or are attributable to the need to receive medical care. [X] (a) Attached documentation from encounter provides clinical findings supporting skilled need and homebound status (including what assistance patient requires to leave the home). The encounter with the patient was in whole, or in part, for the following medical condition, which is the primary reason for home health care: Hypoxemia, Pulmonary Hypertension, Edema Care Home: routine nursing evaluation, medication oversight Physical and Occupational Therapy: routine evaluation and treatment Homebound: patient unable to safely leave house unassisted and ambulation limited d/t pain and decreased strength and endurance. 3. Certification and Authentication I certify that I composed the above information based on my clinical judgment relating to this patient's medical condition and, if applicable, clinical findings communicated to me by the NPP or inpatient physician who performed the Home Health Referral. All further orders will be obtained through _Mariajose Cuenca DO_(Community Based Physician - PCP)
--- NOTE | 2021-09-14 15:30 | CHAPLAIN ---
Fe, a former [employer] employee, and I know each other from when she worked her. She told me about calling the ambulance because of shortness of breath and swelling in her legs. She lives in [place]. 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 Fe was pleasant, and less in pain today than yesterday, she said. Fe attends [employer] in [place], but has not attended since [facility].
--- NOTE | 2021-09-17 11:56 | PT.INDS ---
PT Notes Visit Reasons: Hypoxemia, Pulmonary Hypertension, Edema Inpatient Physical Therapy Discharge Summary Dates: 09/17/2021 Dates of Service: September 10 through 2021 SUBJECTIVE: Continues to have intermittent lumbago Referring Doctor: Azar Escobar MD PT Orders: PT CONSULT: Fall safety assessment Precautions: Fall. Standard. Activity as tolerated. Patient Profile/Admitting Diagnosis:? Fe is a 75-year-old female who presented to the ED on 09/09/2021 due to worsening low back pain and sciatica-like symptoms, increasing shortness of breath, and lower extremity edema .? Patient is diagnosed with hypoxia, edema of bilateral lower extremities, bilateral groin pain, congestive heart failure exacerbation, and lumbar stenosis.? Lumbar spine MRI as of 08/03/2021 revealed : 1. Multilevel degenerative changes in the lumbar spine resulting in central spinal canal neural foraminal stenosis as described above. 2. Left paracentral disc herniation with extrusion posterior to the L4 vertebral body causing left lateral recess stenosis with compression of? the left L4 nerve root. 3. Small right-sided L1-L2 disc herniation with extrusion posterior to L PMHX: All Active Problems? Hypoxia (Acute) Edema of both lower legs (Chronic) Bilateral groin pain (Chronic) & buttock .. see PMR note, 08/2021. JOSTIN (acute kidney injury) (Acute) Cr 1.7 vs 1.5, 09/03/21 .. complicating diuresis. Chronic renal insufficiency, stage II (mild) (Chronic) Mild-Mod CKD G3a (GFR 48, 08/2020). Edema due to congestive heart failure (Chronic) Acute on chronic, presumed CHF.. following diuresis per Dr. Perez direction, 06/2021. Diastolic dysfunction (Chronic) Per Cardio Avani), 09/2018 ... June 29, 2010: LVEDP 23 mm mercury. January 31, 2000. LVEDP 7 mm mercury, rising to 21 mm mercury after 1 L normal saline over 10 minutes. Wedge pressure 19 mm mercury .. mild pulmonary hypertension on right heart catheterization (40-45 MmHG). Hx recurrent pericarditis/ pericardial effusion Sjogren's syndrome. Sacroiliac dysfunction (Acute) 08/23/21 [facility] [place] Pain and spine note Displacement of lumbar intervertebral disc (Acute) 08/23/21 [facility] [place] Pain and spine noteLumbar stenosis (Chronic) with lumbosacral radiculopathy per [facility] Hiatal hernia (Chronic) General/Bariatric Surgery on HOLD 2' CH Hip Pain Widened retrocardiac hiatal hernia, 7cm x 5cm AP. Larger than 2013 Hx GERD, with possible new symptoms (12/2020). Surgery? Osteoarthritis of hips, bilateral (Acute 06/03/21) [facility] xray Abnormal chest CT (Acute) [facility] 06/03/21:? Recommendations to be discussed w/ pt; 1.? F/u imaging of enlarged subcarinal node 3-6mo. 2.? Correlating mammography or breast u/s for breast nodules (non-emergent). 3.? Dedicated imaging for indeterminate splenic lesion. 4.? Repeat Chest CT Q12mo to f/u on nodules bi-lat.Lung nodule < 6cm on CT (Acute) 4mm, per 12/2020 CT (new since 2012).. 6 mo FU [ ]Shrinking lung syndrome (Acute) Restrictive lung disease (Acute) PFT, 01/2021 (Spirometry: Muscle pressures are decreased.. diffusion [capacity] reduced.. Airway resistance normal...Possible mild restrictive lung disease with decreased muscle pressures and a reduced diffusion. (compared to 02/23/2012, total lung capacity & diffusion is reduced .. Clinical Correlation (?) Sjogren's disease (Chronic) GERD (gastroesophageal reflux disease) (Chronic) Tubular adenoma of colon (Chronic 04/25/16) Prediabetes (Acute) A1C 5.8 Hypothyroidism (Chronic) Medical History? Abnormal finding on imaging CT (Lung Ca Screen), 12/2020: Increased markings, 4mm RLL nodule, Dec volume, widened hiatal hernia. Achilles tendonitis Left, with plantar fasciitis Acute nonintractable headache Anterior epistaxis BPPV (benign paroxysmal positional vertigo) Chronic antral gastritis Chronic pain Dysphagia Fatigue severe, sudden onset, napped x hours this week (2' fluconazole?) Femoroacetabular impingement of both hips Former smoker Quit 05/2009 Herpes simplex Hip effusion, right Aspirated, Ortho, 06/2021 Hyperlipidemia (07/23/12) Hx declining statin? Increased BMI (body mass index) (05/11/17) Morbid obesity per [facility] [place] Gen Surge 04/21/21 note Left carpal tunnel syndrome Lichen sclerosus et atrophicus Halbetasol per [facility], 01/2021. (2019. Patient advised to begin topical steroid to vulva) Lipoma of left upper extremity Localized osteoarthritis of right knee Low back pain Neoplasm of uncertain behavior of skin (05/15/14) Left forehead, status post excision with primary closure. Seborrheic keratosis by final pathology. 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 [facility] ([facility]) shows borderline/normal results. 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 Perez on 01/06/20 Posterior tibial tendon dysfunction, left Restless leg syndrome Screening mammography declined 12/2020 EO Severe obstructive sleep apnea 06/13/21 Sleep study noteSevere right groin pain x 2 weeks, with Hx low grade discomfort x months. Hx UrSling. Rt thigh pain described. Shortness of breath Sialoadenitis (10/31/13) To Skin lesion of neck Snoring Stopped smoking with greater than 40 pack year history Strain of muscle of right groin region Tobacco dependence Unilateral primary osteoarthritis, left knee Surgical History? Abdominal hysterectomy ENDOMETRIOSIS; ONE OVARY REMAINS Colonoscopy - IV Sedation (04/25/16) History of ankle surgery hardware present History of arthroplasty of finger of left hand History of bunionectomy of both great toes History of carpal tunnel surgery of left wrist History of colpocleisis History of suburethral sling procedure 12/18/18 Vaginectomy/colpocleisis with Posterior colporrhapy and transobturator mid urethral sling at [facility] [place] Hx of appendectomy Hx of thumb surgery Prolapse of female pelvic organs Stage III post hysterectomy vaginal prolapse with stress incontinence. Rx at [facility] [place] 12/18/18. Status post abdominal hysterectomy Status post tonsillectomy 2018? Tonsillectomy Social History/Home Situation: Lives alone on the second floor of an apartment building with 15 steps to enter with rails on B sides. ? She states that however that she is planning on moving onto the first floor and will start working on it once she returns home. ? 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 Independent with SPC for all mobility ADL tasks at baseline.? Still drives.? Has a friend who has been a great help to her with grocery shopping. Equipment Owned/DME:? OBJECTIVE: Anemia (Chronic)Anemia Pain: 5/10 on the VAS BED MOBILITY/TRANSFERS: Independent with all bed mobility activities GAIT: Ambulates with a wheeled walker for approximately 200 feet with mildly antalgic gait BALANCE: Static sitting good Dynamic sitting good Static standing good Dynamic standing good ASSESSMENT: Continues to be symptomatic GOALS ( Not Met): Goals: Independent with all ADLs in a pain-free manner DISCHARGE PLAN/RECOMMENDATIONS: [] [] Home with no services [] [] Home with services [specify] [] Home with outpatient PT [] [x] SNF for continued rehabilitation [] [] [facility] [] [] SNF versus LTC based on ability to participate and progress This document serves as a summary care note. No PT services were provided on this day.
== END 2021-09-14 14:01 | disposition home health service (06) | DRG 206 ==
LOC: ER 22:09 → MS 09-10 07:51
PROVIDERS: Emergency Medicine; General Practice; Internal Medicine; Nurse Practitioner Acute Care; Nurse Practitioner Family; Admitting Provider Family Medicine; Emergency Provider Student in an Organized Health Care Education/Training Program; PCP Student in an Organized Health Care Education/Training Program; Visit Provider Family Medicine
DX: R09.02 Hypoxemia (principal); I50.32 Chronic diastolic (congestive) heart failure; L03.115 Cellulitis of right lower limb; N17.9 Acute kidney failure, unspecified; Z68.41 Body mass index [BMI] 40.0-44.9, adult; L03.116 Cellulitis of left lower limb; J44.9 Chronic obstructive pulmonary disease, unspecified; E66.01 Morbid (severe) obesity due to excess calories; M48.061 Spinal stenosis, lumbar region without neurogenic claudication; M51.16 Intervertebral disc disorders with radiculopathy, lumbar region; R10.30 Lower abdominal pain, unspecified; N18.2 Chronic kidney disease, stage 2 (mild); M53.3 Sacrococcygeal disorders, not elsewhere classified; K44.9 Diaphragmatic hernia without obstruction or gangrene; M16.0 Bilateral primary osteoarthritis of hip; R91.1 Solitary pulmonary nodule; M35.00 Sjogren syndrome, unspecified; K21.9 Gastro-esophageal reflux disease without esophagitis; E03.9 Hypothyroidism, unspecified; R73.03 Prediabetes; Z87.891 Personal history of nicotine dependence; R91.8 Other nonspecific abnormal finding of lung field; I27.20 Pulmonary hypertension, unspecified; J98.4 Other disorders of lung; G47.33 Obstructive sleep apnea (adult) (pediatric); M17.12 Unilateral primary osteoarthritis, left knee; I77.9 Disorder of arteries and arterioles, unspecified; R60.0 Localized edema; I50.810 Right heart failure, unspecified; Z60.2 Problems related to living alone; G25.81 Restless legs syndrome; I87.8 Other specified disorders of veins; J47.9 Bronchiectasis, uncomplicated
CPT/HCPCS: 36415; 71275; 80048; 80053; 84145; 87040; 87637; 93005; 93306; 94618; 94640; 97116; 97162; 97530; 71046; 83735; 83880; 84443; 84484; 85025; 85049; 85379; 86140; 93010; 93970; 99223; 99232; 99233; 99239; J0131; J1170; J1644; J1650; J1956; J2405; J3490; J7620

== ENCOUNTER 2021-10-03 22:09 | Inpatient (IN) | payer MEDICARE, SELFPAY ==
[2021-10-03] VITALS (13 sets, daily range): BP systolic 123–146; BP diastolic 46–56; PULSE 72–88; RESP 14–28; TEMP 36.9; O2SAT 96–99
--- NOTE | 2021-10-03 22:15 | RT.EKG_ITS ---
APPROVED REPORT Exam: Resting ECG Reason for Exam: sob Patient Location: E HR:75 bpm ECG Measurements Heart Rate 75 AXIS NE 164 P 51 QRSd 108 QRS 58 QT 349 T -14 QTc 390 Conclusion Sinus rhythm...normal P axis, V-rate 60- 99 Low voltage, precordial leads...precordial leads <1.0mV Minimal ST depression, diffuse leads...ST <-0.03mV, ant/lat/inf Physician: Sinus rhythm, rate 75, no significant ST elevation. Minimal ST depression in V4 V5 and V6 . No STEMI. Q wave in lead III. These findings are consistent with prior EKG from 09/09/21. Otherwi se unchanged
--- NOTE | 2021-10-03 22:22 | ED.GENADUL_ITS ---
Discharge Plan Disposition Patient Disposition: [facility] INPATIENT Condition: Stable Discharge Details Clinical Impression: Bilateral edema of lower extremity, Adult failure to thrive, Chronic pain of both lower extremities, Breath shortness, CHF (congestive heart failure) Primary Care Provider: Mariajose Cuenca ED Provider: Kole Higgins Home Meds and New Rx's Prescriptions: No Action nitroglycerin 0.4 mg tablet, sublingual 0.4 mg sublingual Q5M PRN (Reason: chest pain) Qty: 30 1RF Rx Instructions: do not exceed 3 doses per episode halobetasol propionate 0.05 % ointment 1 applic topical BID Qty: 50 4RF Rx Instructions: apply tiny amount to vulvar bid for 2weeks then daily for 2weeks then twice weekly ammonium lactate 12 % cream 1 applic topical BID Qty: 385 1RF Rx Instructions: Trial for dry skin, edema hydrocodone-acetaminophen 5-325 mg tablet 1 tab PO Q4H PRN MDD 10mg hydrocodone PRN (Reason: severe pain) Qty: 20 0RF Rx Instructions: For severe edema and hip/back pain, short-term isosorbide mononitrate 30 mg tablet extended release 24 hr 60 mg PO DAILY Label Comments: Pt states she takes 60mg daily (Dr. Perez - Cardiology) No country hosp. 04/2021 EO Stiolto Respimat 2.5-2.5 mcg/actuation mist 2 puff inhalation DAILY Qty: 4 5RF gabapentin 300 mg capsule See Rx Instructions PO BID PRN (Reason: neuralgia) Qty: 60 1RF Rx Instructions: 300mg orally twice a day PRN; may hold daytime dose for drowsiness torsemide 20 mg tablet See Rx Instructions PO DAILY MDD 60mg Qty: 90 1RF Rx Instructions: 40mg, 60mg for severe edema as per discussion with Cardiology or PCP orally daily; Increased dose for diuresis; may consider 60mg for severe edema. spironolactone 25 mg tablet 25 mg PO DAILY Qty: 30 0RF Rx Instructions: Trial for severe edema losartan 100 mg tablet 100 mg PO DAILY Rx Instructions: 09/23/21 started ropinirole 4 mg tablet 4 mg PO QHS Qty: 90 3RF Rx Instructions: administer 1-3 hours before bedtime (dose increase from 3mg to 4mg on 6/17/22) IK sertraline 50 mg tablet 50 mg PO QHS Qty: 90 3RF Rx Instructions: start with half-tab for 3 days, then increase to 1tab (50mg) daily. cholecalciferol (vitamin D3) [Vitamin D3] 2,000 UNIT capsule 2,000 unit PO DAILY Label Comments: 01/18/17-now takes 5000U/pps meclizine 25 mg tablet 12.5 - 25 mg PO TID PRN (Reason: dizziness) Qty: 30 4RF pantoprazole 40 mg tablet,delayed release (DR/EC) 40 mg PO BID Qty: 60 2RF sucralfate 100 mg/mL suspension 10 ml PO QACHS Qty: 420 1RF Rx Instructions: Trial for break-through reflux levothyroxine 75 mcg tablet 75 mcg PO DAILY Qty: 90 1RF Rx Instructions: Increase based on 09/03/21 labs docusate sodium [Colace] 100 mg capsule 100 mg PO BID polyethylene glycol 3350 [Miralax] 17 gram/dose powder 17 g PO BID PRN (Reason: constipation) Qty: 510 0RF aspirin [Aspir-81] 81 MG tablet,delayed release (DR/EC) 81 mg PO DAILY Medical Decision Making 75-year-old female with a past medical history of coronary artery disease, renal insufficiency, congestive heart failure and chronic lower extremity edema, chronic inguinal pain, Sjogren's syndrome, GERD, hypothyroidism, high cholesterol, previous hysterectomy, appendectomy, who presents today via [facility] for evaluation of shortness of breath. Patient has a long history of chronic lower extremity edema, chronic pain, is scheduled to have eventual MRI of her legs and hips and pelvis per the patient. She states that this chronic pain is continued and is now to the point where she does not feel like she can walk well without significant pain and does not feel like she can take care of herself at home. She does not have any additional help or assistance at home. In addition to this the patient states that today she became short of breath it developed a mild cough. She states this is why she called EMS. She denies any fever or chills. She denies any chest pain. She denies any change in her diet. She has been taking her diuretics as directed. No other complaints at this time. No other modifying factors. Exam demonstrates chronic venous stasis of the lower extremities, chronic edema, +3 pitting edema. No evidence of new cellulitis though clinically. Lungs demonstrate questionable small crackle in left lower lung field. No kiesha wheezes or rhonchi otherwise. Oxygenation stable. She certainly do has a component of chronic edema and there may be a component of acute fluid overload as well giving her the shortness of breath. We will evaluate for this, gently diurese, monitor closely and reassess 12:30 AM Laboratory work-up is returned, relatively stable. Electrolytes stable, proBNP is minimally high at 416, however it must be taken in the context that she chronically has a very very low proBNP level and this seems to be an acute ch biju in elevation. Patient is otherwise stable. Lasix has been given and she has been doing well with this. I did go reassess the patient she continues to feel that she is unable to care for self at home. She does have significant difficulty ambulating moving or rotating. Chest x-ray is negative for consolidation. I do feel that there is some mild increased vascularity that is noted and I think this is attributed to mild CHF currently. I did discuss potential help at home versus placement, and at this time although she was notably resistant to this before she does seem to be open to potential placement now. I discussed the case with the hospitalist Dr. Hansen and he agrees with plan. Patient will be admitted for mild CHF exacerbation in conjunction with failure to thrive at home and inability to care for herself. I have extensively reviewed the treatment plan with the patient. I have addressed all patient concerns at this time. I have also discussed the plan with the admitting physician and they agree with the current assessment and plan and have agreed to assume responsibility for the patient. All parties demonstrate verbal understanding and agreement with our assessment and plan at this time. The documentation in this chart was dictated using [employer] dictation software. Please excuse any dictation errors. EKG 22: 26 Sinus rhythm, rate 75, no significant ST elevation. Minimal ST depression in V4 V5 and V6. No STEMI. Q wave in lead III. These findings are consistent with prior EKG from 09/09/21. Otherwise unchanged. FINDINGS: Lungs: Lungs are adequately inflated. No focal consolidation. There is mild central pulmonary vascular congestion. Pleural spaces: No visible pleural effusion. No pneumothorax. Heart/Mediastinum: Cardiomediastinal contours at the upper limits of normal for size. Hiatal hernia shadow noted. Vasculature: Vascular calcifications of the aortic arch are present. Diaphragm: Mild asymmetric elevation of the right hemidiaphragm, similar to prior. Bones/joints: Mild thoracic spondylosis. No acute osseous finding. IMPRESSION: No focal consolidation. Thank you for allowing us to participate in the care of your patient. Dictated and Authenticated by: Scotty Islas MD 10/03/2021 11:37 PM Eastern Time ([place] & [place] HPI General Date/Time Provider Initiated Documentation: 10/03/21 22:17 . HPI Narrative: 75-year-old female with a past medical history of coronary artery disease, renal insufficiency, congestive heart failure and chronic lower extremity edema, chronic inguinal pain, Sjogren's syndrome, GERD, hypothyroidism, high cholesterol, previous hysterectomy, appendectomy, who presents today via [facility] for evaluation of shortness of breath. Patient has a long history of chronic lower extremity edema, chronic pain, is scheduled to have eventual MRI of her legs and hips and pelvis per the patient. She states that this chronic pain is continued and is now to the point where she does not feel like she can walk well without significant pain and does not feel like she can take care of herself at home. She does not have any additional help or assistance at home. In addition to this the patient states that today she became short of breath it developed a mild cough. She states this is why she called EMS. She denies any fever or chills. She denies any chest pain. She denies any change in her diet. She has been taking her diuretics as directed. No other complaints at this time. No other modifying factors Related Data Home Medications Medication Instructions Recorded Confirmed cholecalciferol (vitamin D3) 50 2,000 unit PO DAILY 07/01/15 10/03/21 mcg (2,000 unit) capsule (Vitamin D3) aspirin 81 mg tablet,delayed 81 mg PO DAILY 01/12/17 10/03/21 release (Aspir-) meclizine 25 mg tablet 12.5 - 25 mg PO TID PRN dizziness 06/16/20 10/03/21 #30 tabs nitroglycerin 0.4 mg sublingual 0.4 mg sublingual Q5M PRN chest 12/12/20 10/03/21 tablet pain #30 tabs halobetasol propionate 0.05 % 1 applic topical BID #50 grams 01/05/21 10/03/21 topical ointment isosorbide mononitrate 30 mg 60 mg PO DAILY 05/21/21 10/03/21 tablet,extended release 24 hr pantoprazole 40 mg tablet,delayed 40 mg PO BID #60 tabs 05/27/21 10/03/21 release sucralfate 100 mg/mL oral 10 ml PO QACHS #420 mL 05/27/21 10/03/21 suspension tiotropium 2.5 mcg-olodaterol 2.5 2 puff inhalation DAILY #4 grams 07/12/21 10/03/21 mcg/actuation mist for inhalation (Stiolto Respimat) ammonium lactate 12 % topical cream 1 applic topical BID #385 grams 07/15/21 10/03/21 gabapentin 300 mg capsule See Rx Instructions PO BID PRN 09/03/21 10/03/21 neuralgia #60 caps levothyroxine 75 mcg tablet 75 mcg PO DAILY #90 tabs 09/03/21 10/03/21 spironolactone 25 mg tablet 25 mg PO DAILY #30 tabs 09/03/21 10/03/21 torsemide 20 mg tablet See Rx Instructions PO DAILY #90 09/03/21 10/03/21 tabs docusate sodium 100 mg capsule 100 mg PO BID 09/15/21 10/03/21 (Colace) polyethylene glycol 3350 17 17 g PO BID PRN constipation #510 09/15/21 10/03/21 gram/dose oral powder (Miralax) grams losartan 100 mg tablet 100 mg PO DAILY 09/24/21 10/03/21 ropinirole 4 mg tablet 4 mg PO QHS #90 tabs 09/24/21 10/03/21 sertraline 50 mg tablet 50 mg PO QHS #90 tabs 09/24/21 10/03/21 hydrocodone 5 mg-acetaminophen 325 1 tab PO Q4H PRN PRN severe pain 10/03/21 10/03/21 mg tablet #20 tabs Previous Rx's Medication Instructions Recorded meclizine 25 mg tablet 12.5 - 25 mg PO TID PRN dizziness 06/16/20 #30 tabs nitroglycerin 0.4 mg sublingual 0.4 mg sublingual Q5M PRN chest 12/12/20 tablet pain #30 tabs halobetasol propionate 0.05 % 1 applic topical BID #50 grams 01/05/21 topical ointment pantoprazole 40 mg tablet,delayed 40 mg PO BID #60 tabs 05/27/21 release sucralfate 100 mg/mL oral 10 ml PO QACHS #420 mL 05/27/21 suspension tiotropium 2.5 mcg-olodaterol 2.5 2 puff inhalation DAILY #4 grams 07/12/21 mcg/actuation mist for inhalation (Stiolto Respimat) ammonium lactate 12 % topical cream 1 applic topical BID #385 grams 07/15/21 gabapentin 300 mg capsule See Rx Instructions PO BID PRN 09/03/21 neuralgia #60 caps levothyroxine 75 mcg tablet 75 mcg PO DAILY #90 tabs 09/03/21 spironolactone 25 mg tablet 25 mg PO DAILY #30 tabs 09/03/21 torsemide 20 mg tablet See Rx Instructions PO DAILY #90 09/03/21 tabs polyethylene glycol 3350 17 17 g PO BID PRN constipation #510 09/15/21 gram/dose oral powder (Miralax) grams ropinirole 4 mg tablet 4 mg PO QHS #90 tabs 09/24/21 sertraline 50 mg tablet 50 mg PO QHS #90 tabs 09/24/21 hydrocodone 5 mg-acetaminophen 325 1 tab PO Q4H PRN PRN severe pain 10/03/21 mg tablet #20 tabs Allergies Allergy/AdvReac Type Severity Reaction Status Date / Time codeine Allergy Severe Anaphylaxsi Verified 09/09/21 16:37 s morphine Allergy Severe Anaphylaxsi Verified 09/09/21 16:37 s oxycodone Allergy Severe Anaphylaxsi Verified 09/09/21 16:37 s amoxicillin [From Augmentin] AdvReac Intermediate Hives Verified 09/09/21 16:37 Swelling budesonide AdvReac Intermediate thrush Verified 09/09/21 16:37 clavulanic acid AdvReac Intermediate Hives Verified 09/09/21 16:37 [From Augmentin] Swelling lisinopril AdvReac Intermediate cough Verified 09/09/21 16:37 pentazocine AdvReac Intermediate elevated Verified 09/09/21 16:37 LFT's diphenhydramine AdvReac Mild Benadryl Verified 09/09/21 16:37 [From Benadryl] and Tylenol PM poorly tolerated, wound up. fluconazole AdvReac Mild Nausea Verified 09/09/21 16:37 prednisone AdvReac Mild flu like Verified 09/09/21 16:37 illness varenicline AdvReac Mild I got Verified 09/09/21 16:37 ugly lactose AdvReac Diarrhea Verified 09/13/21 10:28 General Stated Complaint: RespSymp TERESA: 3 Review of Systems All systems reviewed & are unremarkable except as noted in HPI and below PFSH All Active Problems (Updated 10/04/21 @ 00:16 by Kirby Hansen MD) Weakness (Acute) Bilateral edema of lower extremity (Acute) Adult failure to thrive (Acute) Chronic pain of both lower extremities (Acute) Breath shortness (Acute) CHF (congestive heart failure) (Chronic) Severe pain (Acute) Nodule of spleen (Acute) Dyspnea on exertion (Acute) Coronary artery disease involving [place] coronary artery of [place] heart without angina pectoris (Acute) Edema of both lower legs (Chronic) Bilateral groin pain (Chronic) & buttock .. see PMR note, 08/2021. JOSTIN (acute kidney injury) (Acute) Cr 1.7 vs 1.5, 09/03/21 .. complicating diuresis. Chronic renal insufficiency, stage II (mild) (Chronic) Mild-Mod CKD G3a (GFR 48, 08/2020). Edema due to congestive heart failure (Chronic) Acute on chronic, presumed CHF.. following diuresis per Dr. Perez direction, 06/2021. Diastolic dysfunction (Chronic) Per Cardio Avani), 09/2018 ... June 29, 2010: LVEDP 23 mm mercury. January 31, 2000. LVEDP 7 mm mercury, rising to 21 mm mercury after 1 L normal saline over 10 minutes. Wedge pressure 19 mm mercury .. mild pulmonary hypertension on right heart catheterization (40-45 MmHG). Hx recurrent pericarditis/ pericardial effusion, Sjogren's syndrome. Sacroiliac dysfunction (Acute) 08/23/21 [facility] Pain and spine note Displacement of lumbar intervertebral disc (Acute) 08/23/21 [facility] Pain and spine note Lumbar stenosis (Chronic) with lumbosacral radiculopathy per [facility] Hiatal hernia (Chronic) General/Bariatric Surgery on HOLD 2' CHF, Hip Pain. Widened retrocardiac hiatal hernia, 7cm x 5cm AP. Larger than 2013..Hx GERD, with possible new symptoms (12/2020). Surgery? Osteoarthritis of hips, bilateral (Acute 06/03/21) [facility] xray Abnormal chest CT (Acute) [facility] 06/03/21: Recommendations to be discussed w/ pt; 1. F/u imaging of enlarged subcarinal node 3-6mo. 2. Correlating mammography or breast u/s for breast nodules (non-emergent). 3. Dedicated imaging for indeterminate splenic lesion. 4. Repeat Chest CT Q12mo to f/u on nodules bi-lat. Lung nodule < 6cm on CT (Acute) 4mm, per 12/2020 CT (new since 2012).. 6 mo FU [ ] Shrinking lung syndrome (Acute) Restrictive lung disease (Acute) PFT, 01/2021 (Spirometry: Muscle pressures are decreased.. diffusion [capacity] reduced.. Airway resistance normal...Possible mild restrictive lung disease with decreased muscle pressures and a reduced diffusion. (compared to 02/23/2012, total lung capacity & diffusion is reduced .. Clinical Correlation (?) ik Sjogren's disease (Chronic) GERD (gastroesophageal reflux disease) (Chronic) Tubular adenoma of colon (Chronic 04/25/16) Prediabetes (Acute) A1C 5.8 Hypothyroidism (Chronic) Medical History Abnormal finding on imaging CT (Lung Ca Screen), 12/2020: Increased markings, 4mm RLL nodule, Dec volume, widened hiatal hernia. Achilles tendonitis Left, with plantar fasciitis Acute nonintractable headache Anterior epistaxis BPPV (benign paroxysmal positional vertigo) Chronic antral gastritis Chronic pain Dysphagia Fatigue severe, sudden onset, napped x hours this week (2' fluconazole?) Femoroacetabular impingement of both hips Former smoker Quit 05/2009 Herpes simplex Hip effusion, right Aspirated, Ortho, 06/2021 Hyperlipidemia (07/23/12) Hx declining statin? Increased BMI (body mass index) (05/11/17) Morbid obesity per [facility] Gen Surge 04/21/21 note Left carpal tunnel syndrome Lichen sclerosus et atrophicus Halbetasol per [facility], 01/2021. (2019. Patient advised to begin topical steroid to vulva) Lipoma of left upper extremity Localized osteoarthritis of right knee Low back pain Neoplasm of uncertain behavior of skin (05/15/14) Left forehead, status post excision with primary closure. Seborrheic keratosis by final pathology. 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 TAYLER ([facility]) shows borderline/normal results. 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 Perez on 01/06/20 Posterior tibial tendon dysfunction, left Restless leg syndrome Screening mammography declined 12/2020 EO Severe obstructive sleep apnea 06/13/21 Sleep study note Severe right groin pain x 2 weeks, with Hx low grade discomfort x months. Hx UrSling. Rt thigh pain described. Shortness of breath Sialoadenitis (10/31/13) Skin lesion of neck Snoring Stopped smoking with greater than 40 pack year history Strain of muscle of right groin region Tobacco dependence Unilateral primary osteoarthritis, left knee Surgical History Abdominal hysterectomy ENDOMETRIOSIS; ONE OVARY REMAINS Colonoscopy - IV Sedation (04/25/16) History of ankle surgery hardware present History of arthroplasty of finger of left hand History of bunionectomy of both great toes History of carpal tunnel surgery of left wrist History of colpocleisis History of suburethral sling procedure 12/18/18 Vaginectomy/colpocleisis with Posterior colporrhapy and transobturator mid urethral sling at [facility] Hx of appendectomy Hx of thumb surgery Prolapse of female pelvic organs Stage III post hysterectomy vaginal prolapse with stress incontinence. Rx at [facility] 12/18/18. Status post abdominal hysterectomy Status post tonsillectomy 2018? Tonsillectomy Family History Mother , AGE 91 Alzheimer disease Father , AGE 86 Essential hypertension AAA (abdominal aortic aneurysm) Alzheimer disease Heart disease Hyperlipidemia Bladder cancer Sister No problems noted. Maternal Grandfather , SHOT AGE 35 No problems noted. Paternal Grandfather , AGE 93 Heart disease Maternal Grandmother , AGE 64 Uterine cancer Paternal Grandmother , AGE 73 AAA (abdominal aortic aneurysm) Stroke Son No problems noted. Son Asthma Son No problems noted. Social History Smoking/Tobacco Use Status: Former Tobacco Use Tobacco: How many years used: 45 Smoking risk assessment performed?: Yes Alcohol Intake: current Alcohol Intake frequency: holidays/special occasions only Alcohol type: beer and wine Drug use: Never Substance use type: does not use Counseling given: No Counseling provided: other Adopted: No Caregiver/Support person: No Foster care: No Household members: none Housing: house Number of Children: 3 number of grandchildren: 6 Communication Needs: None Education Level: college Details: Associate's Degree Do you need help understanding health information?: Never 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 [place] Pets and animals: No Sexually active: No Do you think of yourself as: straight/heterosexual Current gender identity: female What is your relationship status?: How often do you talk on the phone with friends or family?: three or more times per week How often do you get together with friends or relatives?: twice per week Do you belong to any clubs or organized social groups?: yes Panel score (0-1 are the most socially isolated patients): 2 What type of physical activity do you participate in: weight lifting and occasional exercise Duration: > 90 minutes/day Frequency: daily Any/Mosque: Baptism Special any needs: No Seatbelt use: always Helmet use: No Drive intox or ride w/intox 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 3.ENT: Atraumatic external nose and ears. Moist MM. Neck: Symmetric, trachea midline, No thyromegaly. 4.CVS: +S1/S2, No murmurs or gallops. Peripheral pulses 2+ and equal in all extremities. Brisk capillary refill in all extremities. 5.RESP: Unlabored respiratory effort. Questionable small crackle in the left lower lung field. No rhonchi or rails otherwise. 6.GI: Soft, Nontender/Nondistended, No hepatosplenomegaly. No guarding or rebound. 7.MSK: Normocephalic/Atraumatic, chronic swelling and edema of the lower extremities with bilateral chronic venous stasis. +2 to +3 pitting edema bilaterally. Tenderness throughout with minimal palpation which per patient is at baseline. Notable difficulty ambulating secondary to chronic pain in the lower extremities and chronic weakness with some deconditioning 8.Skin: Warm, Dry. No rashes or lesions. 9.Neuro: pattern grader II-XII grossly intact. Sensation grossly intact, no focal neurologic deficits. 10.Psych: (AAO) x3. Appropriate mood and affect Course Vital Signs Vital signs: Vital Signs Temperature 36.9 C 10/03/21 22:06 Pulse 81 10/03/21 22:06 Respiratory Rate 17 10/03/21 22:06 Blood Pressure 123/46 L 10/03/21 22:06 Pulse Oximetry 97 10/03/21 22:06 Temperature 36.9 C 10/03/21 22:06 Temperature Source Temporal Artery Scan 10/03/21 22:06 Pulse 81 10/03/21 22:06 Respiratory Rate 17 10/03/21 22:06 Respiratory Effort Short of Breath 10/03/21 22:12 Respiratory Depth Normal 10/03/21 22:12 Blood Pressure 123/46 L 10/03/21 22:06 Blood Pressure Position Supine 10/03/21 22:06 Pulse Oximetry 97 10/03/21 22:06 Oxygen Delivery Method Room Air 10/03/21 22:06 Oxygen Flow Rate 0 10/03/21 22:06 Pain Level 9 10/03/21 22:06
[2021-10-03 22:54] LABS: Source Nasal/Nares
[2021-10-03 22:58] LABS: Abs Immature Grans 0.01 10^3/uL (0.0-0.06); Absolute Basophil Count 0.03 10^3/uL (0.0-0.2); Absolute Eosinophil Count 0.33 10^3/uL (0.0-0.7); Absolute Lymphocyte Count 2.28 10^3/uL (1.2-3.4); Absolute Monocyte Count 0.89 10^3/uL (0.1-0.8); Basophils % 0.4; Eosinophils % 3.9; HCT 31.3 % (36.0-46.0); HGB 10.3 g/dL (11.2-15.7); Immature Grans % 0.1; MCH 31.4 pg (27.0-33.0); MCHC 32.9 % (32.0-36.0); MCV 95 fL (80-95); MPV 8.7 fL (8.0-11.0); Monocytes % 10.5; Neutrophils % 58.1; Platelet Count 219 10^3/uL (130-400); RBC 3.28 10^6/uL (3.93-5.22); RDW 12.4 % (11.7-14.6); RDW-SD 43.6 fL; WBC 8.44 10^3/uL (4.4-10.8)
--- NOTE | 2021-10-03 22:58 | DI.RAD_ITS ---
Exam(s) XR PORTABLE CHEST AP EXAM: XR PORTABLE CHEST AP CLINICAL HISTORY: sob, hx of chf. TECHNIQUE: 2D digital imaging was performed. COMPARISON: CR,XR XR CHEST 2V PA LATERAL from 09/09/2021 FINDINGS: Single AP portable view. There is a prominent retrocardiac density which measures 10 cm wide by 8 cm craniocaudal. This is pr obably a large hiatal hernia. Heart size is upper normal. The mediastinum is not widened. There is platelike atelectasis in the mid left lung. Mild increased markings in the left lung base. No large infiltrates. No obvious pleural effusions. IMPRESSION: There is platelike atelectasis in the mid left lung field. Large retrocardiac density now evident. Suspect that this is a large hiatal hernia. If clinically i ndicated follow-up CT scan can be performed DATA REPOSITORY: RADIATION DOSE DELIVERED: All CT scans at this facility use at least one of these dose optimization techniques: automated exposure control; mA and/or kV adjustment per patient size (includes targeted e xams where dose is matched to clinical indication); or iterative reconstruction.
[2021-10-03] MEDS: ACETAMINOPHEN 1,000 MG/100 ML BTL 400 MG IVPB (23:03)
[2021-10-03] MEDS: Furosemide 40 MG/4 ML VIAL IVP (23:04)
[2021-10-03 23:14] LABS: ALT 22 U/L (14-59); AST 14 U/L (15-37); Albumin 3.6 g/dL (3.4-5.0); Alkaline Phosphatase 68 U/L (46-116); Anion Gap 9.5 mmol/L (3-11); BUN 23 mg/dL (7-18); Bilirubin, Total 0.3 mg/dL (0.2-1.0); CO2 29.5 mmol/L (21.0-32.0); CREATININE 1.4 mg/dL (0.55-1.02); Calcium 9.7 mg/dL (8.5-10.1); Chloride 101 mmol/L (98-107); Estimated GFR 36.66 (mL/min/1.73m2); Glucose 103 mg/dL (74-106); NT-proBNP 416 pg/mL (<300); Potassium 3.3 mmol/L (3.5-5.1); Sodium 140 mmol/L (136-145); Total Protein 7.1 g/dL (6.4-8.2); Troponin I < 50 ng/L (<or=60)
--- NOTE | 2021-10-03 23:38 | DI.VRAD_ITS ---
PROCEDURE INFORMATION: Exam: XR Chest Exam date and time: 10/03/2021 10:41 PM Age: 75 years old Clinical indication: Shortness of breath; Patient HX: SOB, HX of chf TECHNIQUE: Imaging protocol: Radiologic exam of the chest. Views: 1 view. COMPARISON: CR XR CHEST 2V PA LATERAL 09/09/2021 5:19 PM FINDINGS: Lungs: Lungs are adequately inflated. No focal consolidation. There is mild central pulmonary vascular congestion. Pleural spaces: No visible pleural effusion. No pneumothorax. Heart/Mediastinum: Cardiomediastinal contours at the upper limits of normal for size. Hiatal hernia shadow noted. Vasculature: Vascular calcifications of the aortic arch are present. Diaphragm: Mild asymmetric elevation of the right hemidiaphragm, similar to prior. Bones/joints: Mild thoracic spondylosis. No acute osseous finding. IMPRESSION: No focal consolidation. Dictated and Authenticated by: Scotty Islas MD. Ordering:ALLYN Sharif MD
[2021-10-03 23:44] LABS: COVID-19 PCR Negative (Negative)
--- NOTE | 2021-10-03 23:59 | W.PM.HP.N ---
Date of service: 10/03/21 Time of Service: 23:59 Assessment and Plan Assessment and plan (1) Weakness: Status: Acute Assessment and plan: Mulitfactorial weakness, factors include chronic pain, peripheral edema, possibly an element of CHF. It is also possible that the anemia is contributing, and there may well be a functional component as well as patient expresses that she is sick and tired of it all. For now I would advise admission, PT consult, anemia w/u, follow response to diuresis, and chronic pain management. Will also need f/u with NS regarding MRI findings as outlined above. History of Present Illness History of Present Illness Chief Complaint: weakness Narrative: 75 female with h/o chronic pain, chronic peripheral edema, CHF, chronic weakness and SOB, lives alone. States that over the past month she has felt progressively less able to manage at home and navigate on her own. No specific new issues, just an accumulation of her various chronic issues as specified above. States she came in tonight because she just felt she couldn't manage any longer. In ER findings of note for mild vascular congestion on CXR with BNP slightly elevated at 416, patient given 40 Lasix IVP. It was also noted that she required assist for transfers. Hct 31 noted, this was 42 last fall, has been in low 30s all this past month.. Patient denies melena. As to chronic pain, this is bilateral LE, and patient states she had MRI showing multiple disc herniations and compression left L4 nerve root. Had epidural x 1 in August with some improvement. Review of Systems Narrative: per HPI PFSH All Active Problems (Updated 10/04/21 @ 00:16 by Kirby Hansen MD) Weakness (Acute) Bilateral edema of lower extremity (Acute) Adult failure to thrive (Acute) Chronic pain of both lower extremities (Acute) Breath shortness (Acute) CHF (congestive heart failure) (Chronic) Severe pain (Acute) Nodule of spleen (Acute) Dyspnea on exertion (Acute) Coronary artery disease involving [place] coronary artery of [place] heart without angina pectoris (Acute) Edema of both lower legs (Chronic) Bilateral groin pain (Chronic) & buttock .. see PMR note, 08/2021. JOSTIN (acute kidney injury) (Acute) Cr 1.7 vs 1.5, 09/03/21 .. complicating diuresis. Chronic renal insufficiency, stage II (mild) (Chronic) Mild-Mod CKD G3a (GFR 48, 08/2020). Edema due to congestive heart failure (Chronic) Acute on chronic, presumed CHF.. following diuresis per Dr. Perez direction, 06/2021. Diastolic dysfunction (Chronic) Per Cardio Avani), 09/2018 ... June 29, 2010: LVEDP 23 mm mercury. January 31, 2000. LVEDP 7 mm mercury, rising to 21 mm mercury after 1 L normal saline over 10 minutes. Wedge pressure 19 mm mercury .. mild pulmonary hypertension on right heart catheterization (40-45 MmHG). Hx recurrent pericarditis/ pericardial effusion, Sjogren's syndrome. Sacroiliac dysfunction (Acute) 08/23/21 [facility] Pain and spine note Displacement of lumbar intervertebral disc (Acute) 08/23/21 [facility] Pain and spine note Lumbar stenosis (Chronic) with lumbosacral radiculopathy per [facility] Hiatal hernia (Chronic) General/Bariatric Surgery on HOLD 2' CHF, Hip Pain. Widened retrocardiac hiatal hernia, 7cm x 5cm AP. Larger than 2012..Hx GERD, with possible new symptoms (12/2020). Surgery? Osteoarthritis of hips, bilateral (Acute 06/03/21) [facility] xray Abnormal chest CT (Acute) [facility] 06/03/21: Recommendations to be discussed w/ pt; 1. F/u imaging of enlarged subcarinal node 3-6mo. 2. Correlating mammography or breast u/s for breast nodules (non-emergent). 3. Dedicated imaging for indeterminate splenic lesion. 4. Repeat Chest CT Q12mo to f/u on nodules bi-lat. Lung nodule < 6cm on CT (Acute) 4mm, per 12/2020 CT (new since 2012).. 6 mo FU [ ] Shrinking lung syndrome (Acute) Restrictive lung disease (Acute) PFT, 01/2021 (Spirometry: Muscle pressures are decreased.. diffusion [capacity] reduced.. Airway resistance normal...Possible mild restrictive lung disease with decreased muscle pressures and a reduced diffusion. (compared to 02/23/2012, total lung capacity & diffusion is reduced .. Clinical Correlation (?) ik Sjogren's disease (Chronic) GERD (gastroesophageal reflux disease) (Chronic) Tubular adenoma of colon (Chronic 04/25/16) Prediabetes (Acute) A1C 5.8 Hypothyroidism (Chronic) Medical History Abnormal finding on imaging CT (Lung Ca Screen), 12/2020: Increased markings, 4mm RLL nodule, Dec volume, widened hiatal hernia. Achilles tendonitis Left, with plantar fasciitis Acute nonintractable headache Anterior epistaxis BPPV (benign paroxysmal positional vertigo) Chronic antral gastritis Chronic pain Dysphagia Fatigue severe, sudden onset, napped x hours this week (2' fluconazole?) Femoroacetabular impingement of both hips Former smoker Quit 05/2009 Herpes simplex Hip effusion, right Aspirated, Ortho, 06/2021 Hyperlipidemia (07/23/12) Hx declining statin? Increased BMI (body mass index) (05/11/17) Morbid obesity per [facility] Gen Surge 04/21/21 note Left carpal tunnel syndrome Lichen sclerosus et atrophicus Halbetasol per [facility], 01/2021. (2019. Patient advised to begin topical steroid to vulva) Lipoma of left upper extremity Localized osteoarthritis of right knee Low back pain Neoplasm of uncertain behavior of skin (05/15/14) Left forehead, status post excision with primary closure. Seborrheic keratosis by final pathology. 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 [facility] ([facility]) shows borderline/normal results. 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 Perez on 01/06/20 Posterior tibial tendon dysfunction, left Restless leg syndrome Screening mammography declined 12/2020 EO Severe obstructive sleep apnea 06/13/21 Sleep study note Severe right groin pain x 2 weeks, with Hx low grade discomfort x months. Hx UrSling. Rt thigh pain described. Shortness of breath Sialoadenitis (10/31/13) Skin lesion of neck Snoring Stopped smoking with greater than 40 pack year history Strain of muscle of right groin region Tobacco dependence Unilateral primary osteoarthritis, left knee Surgical History Abdominal hysterectomy ENDOMETRIOSIS; ONE OVARY REMAINS Colonoscopy - IV Sedation (04/25/16) History of ankle surgery hardware present History of arthroplasty of finger of left hand History of bunionectomy of both great toes History of carpal tunnel surgery of left wrist History of colpocleisis History of suburethral sling procedure 12/18/18 Vaginectomy/colpocleisis with Posterior colporrhapy and transobturator mid urethral sling at [facility] Hx of appendectomy Hx of thumb surgery Prolapse of female pelvic organs Stage III post hysterectomy vaginal prolapse with stress incontinence. Rx at [facility] 12/18/18. Status post abdominal hysterectomy Status post tonsillectomy 2018? Tonsillectomy Family History Mother , AGE 91 Alzheimer disease Father , AGE 86 Essential hypertension AAA (abdominal aortic aneurysm) Alzheimer disease Heart disease Hyperlipidemia Bladder cancer Sister No problems noted. Maternal Grandfather , SHOT AGE 35 No problems noted. Paternal Grandfather , AGE 93 Heart disease Maternal Grandmother , AGE 64 Uterine cancer Paternal Grandmother , AGE 73 AAA (abdominal aortic aneurysm) Stroke Son No problems noted. Son Asthma Son No problems noted. Social History Smoking/Tobacco Use Status: Former Tobacco Use Tobacco: How many years used: 45 Smoking risk assessment performed?: Yes Alcohol Intake: current Alcohol Intake frequency: holidays/special occasions only Alcohol type: beer and wine Drug use: Never Substance use type: does not use Counseling given: No Counseling provided: other Adopted: No Caregiver/Support person: No Foster care: No Household members: none Housing: house Number of Children: 3 number of grandchildren: 6 Communication Needs: None Education Level: college Details: Associate's Degree Do you need help understanding health information?: Never 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 [place] Pets and animals: No Sexually active: No Do you think of yourself as: straight/heterosexual Current gender identity: female What is your relationship status?: How often do you talk on the phone with friends or family?: three or more times per week How often do you get together with friends or relatives?: twice per week Do you belong to any clubs or organized social groups?: yes Panel score (0-1 are the most socially isolated patients): 2 What type of physical activity do you participate in: weight lifting and occasional exercise Duration: > 90 minutes/day Frequency: daily Any/Nondenominational: Jehovah'[employer] Witness Special any needs: No Seatbelt use: always Helmet use: No Drive intox or ride w/intox water taxi driver: No Do you feel safe at home: Yes Do you feel safe in your relationship?: Yes Additional Social history: lives alone Female Reproductive History Menstrual Menopause type: surgical History History 3 Para Hx # Term Pregnancies 3 Multiple births Hx # Pregnancies Ectopic pregnancies AB induced Hx Number of Living Children AB spontaneous Meds Allergies and Home Medications Allergies Allergy/AdvReac Type Severity Reaction Status Date / Time codeine Allergy Severe Anaphylaxsi Verified 09/09/21 16:37 s morphine Allergy Severe Anaphylaxsi Verified 09/09/21 16:37 s oxycodone Allergy Severe Anaphylaxsi Verified 09/09/21 16:37 s amoxicillin [From Augmentin] AdvReac Intermediate Hives Verified 09/09/21 16:37 Swelling budesonide AdvReac Intermediate thrush Verified 09/09/21 16:37 clavulanic acid AdvReac Intermediate Hives Verified 09/09/21 16:37 [From Augmentin] Swelling lisinopril AdvReac Intermediate cough Verified 09/09/21 16:37 pentazocine AdvReac Intermediate elevated Verified 09/09/21 16:37 LFT's diphenhydramine AdvReac Mild Benadryl Verified 09/09/21 16:37 [From Benadryl] and Tylenol PM poorly tolerated, wound up. fluconazole AdvReac Mild Nausea Verified 09/09/21 16:37 prednisone AdvReac Mild flu like Verified 09/09/21 16:37 illness varenicline AdvReac Mild I got Verified 09/09/21 16:37 ugly lactose AdvReac Diarrhea Verified 09/13/21 10:28 Home Medications Medication Instructions Recorded Confirmed Type cholecalciferol (vitamin D3) 50 2,000 unit PO DAILY 07/01/15 10/03/21 History mcg (2,000 unit) capsule (Vitamin D3) aspirin 81 mg tablet,delayed 81 mg PO DAILY 01/12/17 10/03/21 History release (Aspir-) meclizine 25 mg tablet 12.5 - 25 mg PO TID PRN dizziness 06/16/20 10/03/21 Rx #30 tabs nitroglycerin 0.4 mg sublingual 0.4 mg sublingual Q5M PRN chest 12/12/20 10/03/21 Rx tablet pain #30 tabs halobetasol propionate 0.05 % 1 applic topical BID #50 grams 01/05/21 10/03/21 Rx topical ointment isosorbide mononitrate 30 mg 60 mg PO DAILY 05/21/21 10/03/21 History tablet,extended release 24 hr pantoprazole 40 mg tablet,delayed 40 mg PO BID #60 tabs 05/27/21 10/03/21 Rx release sucralfate 100 mg/mL oral 10 ml PO QACHS #420 mL 05/27/21 10/03/21 Rx suspension tiotropium 2.5 mcg-olodaterol 2.5 2 puff inhalation DAILY #4 grams 07/12/21 10/03/21 Rx mcg/actuation mist for inhalation (Stiolto Respimat) ammonium lactate 12 % topical cream 1 applic topical BID #385 grams 07/15/21 10/03/21 Rx gabapentin 300 mg capsule See Rx Instructions PO BID PRN 09/03/21 10/03/21 Rx neuralgia #60 caps levothyroxine 75 mcg tablet 75 mcg PO DAILY #90 tabs 09/03/21 10/03/21 Rx spironolactone 25 mg tablet 25 mg PO DAILY #30 tabs 09/03/21 10/03/21 Rx torsemide 20 mg tablet See Rx Instructions PO DAILY #90 09/03/21 10/03/21 Rx tabs docusate sodium 100 mg capsule 100 mg PO BID 09/15/21 10/03/21 History (Colace) polyethylene glycol 3350 17 17 g PO BID PRN constipation #510 09/15/21 10/03/21 Rx gram/dose oral powder (Miralax) grams losartan 100 mg tablet 100 mg PO DAILY 09/24/21 10/03/21 History ropinirole 4 mg tablet 4 mg PO QHS #90 tabs 09/24/21 10/03/21 Rx sertraline 50 mg tablet 50 mg PO QHS #90 tabs 09/24/21 10/03/21 Rx hydrocodone 5 mg-acetaminophen 325 1 tab PO Q4H PRN PRN severe pain 10/03/21 10/03/21 Rx mg tablet #20 tabs Exam Narrative Exam Narrative: 123/46, 75, 36.9, 19, 99% RA. HEENT atraumatic; neck supple; lungs clear (limited exam, anterior only); heart RRR; abdomen soft and NT; extremities 2+ pedal edma, mixed pitting and non-pitting, with bilateral warm erythema, non-tender; neuro Ox3, lucid, moves all 4s Results Labs Result diagrams: 10/03/21 20:48 10/03/21 20:48 Labs: Laboratory Results - last 24 hr 10/03/21 10/03/21 10/03/21 20:48 20:48 20:48 WBC 8.44 RBC 3.28 L Hgb 10.3 L Hct 31.3 L MCV 95 MCH 31.4 MCHC 32.9 RDW 12.4 Plt Count 219 MPV 8.7 Immature Gran % 0.1 Neutrophils % 58.1 Lymphocytes % 27.0 Monocytes % 10.5 Eosinophils % 3.9 Basophils % 0.4 Nucleated RBC % 0.0 Absolute Neutrophils 4.90 Absolute Lymphocytes 2.28 Absolute Monocytes 0.89 H Absolute Eosinophils 0.33 Absolute Basophils 0.03 Sodium 140 Potassium 3.3 L Chloride 101 Carbon Dioxide 29.5 Anion Gap 9.5 BUN 23 H Creatinine 1.4 H Estimated GFR/1.73 m2 36.66 Glucose 103 Calcium 9.7 Total Bilirubin 0.3 AST 14 L ALT 22 Alkaline Phosphatase 68 Troponin I < 50 NT-Pro-B Natriuret Pep 416 H Total Protein 7.1 Albumin 3.6 COVID-19 Source Nasal/Nares SARS-CoV-2 (PCR) Negative Last Vital Signs Temp 36.9 C 10/03/21 22:06 Pulse 72 10/03/21 22:21 Resp 19 10/03/21 23:10 BP 123/46 L 10/03/21 22:21 Pulse Ox 99 10/03/21 22:22
[2021-10-04] VITALS (18 sets, daily range): BP systolic 94–126; BP diastolic 47–77; PULSE 64–89; RESP 12–19; TEMP 36.2–36.5; O2SAT 92–99
[2021-10-04] MEDS: HYDROcodone 5/Acetaminophen 325 TAB PO ×2 (00:48→22:19)
[2021-10-04] MEDS: Gabapentin 300 MG CAP PO ×2 (02:21→22:19)
[2021-10-04] MEDS: Levothyroxine 75 MCG TAB PO (05:12)
[2021-10-04 07:03] LABS: HCT 31.2 % (36.0-46.0); HGB 10.2 g/dL (11.2-15.7); MCH 31.6 pg (27.0-33.0); MCHC 32.7 % (32.0-36.0); MCV 97 fL (80-95); MPV 8.8 fL (8.0-11.0); Platelet Count 198 10^3/uL (130-400); RBC 3.23 10^6/uL (3.93-5.22); RDW 12.3 % (11.7-14.6); RDW-SD 43.6 fL; Reticulocyte 1.3 % (0.5-2.4); WBC 6.21 10^3/uL (4.4-10.8)
[2021-10-04 07:10] LABS: Anion Gap 6.8 mmol/L (3-11); BUN 21 mg/dL (7-18); CO2 34.2 mmol/L (21.0-32.0); CREATININE 1.3 mg/dL (0.55-1.02); Calcium 9.2 mg/dL (8.5-10.1); Chloride 102 mmol/L (98-107); Estimated GFR 39.93 (mL/min/1.73m2); Glucose 104 mg/dL (74-106); Potassium 3.1 mmol/L (3.5-5.1); Sodium 143 mmol/L (136-145)
[2021-10-04 08:00] LABS: Iron 37 ug/dL (50-170); Total Iron Binding Capacity 302 ug/dL (250-450); Transferrin Sat 12 % (15-50)
[2021-10-04] MEDS: Isosorbide Mononitrate 30 MG TABCR 60 MG PO (08:01)
[2021-10-04] MEDS: Sucralfate 1 GM TAB PO ×4 (08:02→21:23)
[2021-10-04] MEDS: Acetaminophen 325 MG TAB 650 MG PO (08:02)
[2021-10-04] MEDS: Aspirin E.C. 81 MG TABEC PO (08:02)
[2021-10-04] MEDS: Potassium Chloride 20 MEQ TABCR 40 MEQ PO (08:02)
[2021-10-04] MEDS: Pantoprazole 40 MG TABCR PO ×2 (08:03→20:32)
[2021-10-04] MEDS: Losartan 50 MG TAB 100 MG PO (08:03)
[2021-10-04] MEDS: Docusate Sodium 100 MG CAP PO (08:03)
[2021-10-04] MEDS: Spironolactone 25 MG TAB PO (08:04)
--- NOTE | 2021-10-04 08:37 | PT.INIE ---
Date of service: 10/04/21 Time of Service: 07:55 PT Notes Visit Reasons: Weakness Inpatient Physical Therapy Evaluation Date: 10/04/21 Referring Doctor: Kirby Hansen PT Orders: PT CONSULT: Limited Ability Precautions: Standard Patient Profile/Admitting Diagnosis: 75 y.o. female with progressive weakness and L low back and LE radiculopathy since May, S/P epidural injection to lumbar spine in August with minimal relief. Presentation also suggesting components of CHF to her physical limitations. Presented to the ER herself due to her failing physical ability and pain. PMHX: All Active Problems?(Updated 10/04/21 @ 00:16 by Kirby Hansen MD) Weakness (Acute) Bilateral edema of lower extremity (Acute) Adult failure to thrive (Acute) Chronic pain of both lower extremities (Acute) Breath shortness (Acute) CHF (congestive heart failure) (Chronic) Severe pain (Acute) Nodule of spleen (Acute) Dyspnea on exertion (Acute) Coronary artery disease involving [place] coronary artery of [place] heart without angina pectoris (Acute) Edema of both lower legs (Chronic) Bilateral groin pain (Chronic) & buttock .. see PMR note, 08/2021.JOSTIN (acute kidney injury) (Acute) Cr 1.7 vs 1.5, 09/03/21 .. complicating diuresis.Chronic renal insufficiency, stage II (mild) (Chronic) Mild-Mod CKD G3a (GFR 48, 08/2020).Edema due to congestive heart failure (Chronic) Acute on chronic, presumed CHF.. following diuresis per Dr. Perez direction, 06/2021.Diastolic dysfunction (Chronic) Per Cardio Avani), 09/2018 ... June 29, 2010: LVEDP 23 mm mercury. January 31, 2000. LVEDP 7 mm mercury, rising to 21 mm mercury after 1 L normal saline over 10 minutes. Wedge pressure 19 mm mercury .. mild pulmonary hypertension on right heart catheterization (40-45 MmHG). Hx recurrent pericarditis/ pericardial effusion, Sjogren's syndrome.Sacroiliac dysfunction (Acute) 08/23/21 [facility] [place] [facility] Pain and spine noteDisplacement of lumbar intervertebral disc (Acute) 08/23/21 [facility] [place] [facility] Pain and spine noteLumbar stenosis (Chronic) with lumbosacral radiculopathy per Pain ClinicHiatal hernia (Chronic) General/Bariatric Surgery on HOLD 2' CHF, Hip Pain. Widened retrocardiac hiatal hernia, 7cm x 5cm AP. Larger than 2013..Hx GERD, with possible new symptoms (12/2020). Surgery?Osteoarthritis of hips, bilateral (Acute 06/03/21) [facility] xrayAbnormal chest CT (Acute) [facility] 06/03/21:? Recommendations to be discussed w/ pt; 1.? F/u imaging of enlarged subcarinal node 3-6mo. 2.? Correlating mammography or breast u/s for breast nodules (non-emergent). 3.? Dedicated imaging for indeterminate splenic lesion. 4.? Repeat Chest CT Q12mo to f/u on nodules bi-lat.Lung nodule < 6cm on CT (Acute) 4mm, per 12/2020 CT (new since 2012).. 6 mo FU [ ]Shrinking lung syndrome (Acute) Restrictive lung disease (Acute) PFT, 01/2021 (Spirometry: Muscle pressures are decreased.. diffusion [capacity] reduced.. Airway resistance normal...Possible mild restrictive lung disease with decreased muscle pressures and a reduced diffusion. (compared to 02/23/2012, total lung capacity & diffusion is reduced .. Clinical Correlation (?) ikSjogren's disease (Chronic) GERD (gastroesophageal reflux disease) (Chronic) Tubular adenoma of colon (Chronic 04/25/16) Prediabetes (Acute) A1C 5.8Hypothyroidism (Chronic) Medical History? Abnormal finding on imaging CT (Lung Ca Screen), 12/2020: Increased markings, 4mm RLL nodule, Dec volume, widened hiatal hernia.Achilles tendonitis Left, with plantar fasciitisAcute nonintractable headache Anterior epistaxis BPPV (benign paroxysmal positional vertigo) Chronic antral gastritis Chronic pain Dysphagia Fatigue severe, sudden onset, napped x hours this week (2' fluconazole?)Femoroacetabular impingement of both hips Former smoker Quit 05/2009Herpes simplex Hip effusion, right Aspirated, Ortho, 06/2021Hyperlipidemia (07/23/12) Hx declining statin?Increased BMI (body mass index) (05/11/17) Morbid obesity per [facility] Gen Surge 04/21/21 noteLeft carpal tunnel syndrome Lichen sclerosus et atrophicus Halbetasol per [facility], 01/2021. (2019. Patient advised to begin topical steroid to vulva)Lipoma of left upper extremity Localized osteoarthritis of right knee Low back pain Neoplasm of uncertain behavior of skin (05/15/14) Left forehead, status post excision with primary closure. Seborrheic keratosis by final pathology. 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 Perez on 01/06/20 Posterior tibial tendon dysfunction, left Restless leg syndrome Screening mammography declined 12/2020 EOSevere obstructive sleep apnea 06/13/21 Sleep study noteSevere right groin pain x 2 weeks, with Hx low grade discomfort x months. Hx UrSling. Rt thigh pain described.Shortness of breath Sialoadenitis (10/31/13) Skin lesion of neck Snoring Stopped smoking with greater than 40 pack year history Strain of muscle of right groin region Tobacco dependence Unilateral primary osteoarthritis, left knee Surgical History? Abdominal hysterectomy ENDOMETRIOSIS; ONE OVARY REMAINSColonoscopy - IV Sedation (04/25/16) History of ankle surgery hardware presentHistory of arthroplasty of finger of left hand History of bunionectomy of both great toes History of carpal tunnel surgery of left wrist History of colpocleisis History of suburethral sling procedure 12/18/18 Vaginectomy/colpocleisis with Posterior colporrhapy and transobturator mid urethral sling at [facility] [place] [facility] Hx of appendectomy Hx of thumb surgery Prolapse of female pelvic organs Stage III post hysterectomy vaginal prolapse with stress incontinence. Rx at [facility] 12/18/18. Status post abdominal hysterectomy Status post tonsillectomy 2018?Tonsillectomy Social History/Home Situation: Reports to live in a second floor apartment. She lives alone. Her apartment is small. She has a rail on the flight of stairs to enter. She does state she has nearby friend and family support. She has a son in [place] she has been invited to live with, but she does not want to move. Current Functional Limitations: Dependent on SPC of for ambulation, can not tolerate more than 5 min of weightbearing at a time, stairs are very difficult, struggling to get her minimal household duties done due to pain. She is not driving, because she can not push on the break with her leg without pain. Equipment Owned/DME: [facility] [place] [place] Subjective: Reporting pain in L low back, L groin, intermittent lack of motor control in L leg, but sometimes bilateral legs. She has had failing physical ability since May, and most recently worsening over the past two months, and she has been toughing it out. Objective: General Observation: Seated in recliner chair, legs elevated. Mental Status: A & O x 3 Pain: 9-10/10, L low back, L groin, L lateral hip Vital Signs: Bp 123/67, HR 69, O2 on room air 95% ROM: Right Upper Extremity: Grossly WNL Left Upper Extremity: Grossly WNL Right Lower Extremity: Hip flexion limited to 90 deg due to pain bilaterally, knee 0-90 limited by LE edema, ankles grossly WFL Left Lower Extremity: Hip flexion limited to 90 deg due to pain bilaterally, knee 0-90 limited by LE edema, ankles grossly WFL Strength: Right Upper Extremity: Grossly 4+/5 Left Upper Extremity: Grossly 4+/5 Right Lower Extremity: Hip flex 3/5 with pain in low back, knee flex and ext 4+/5, DF and PF 5/5 Left Lower Extremity: hip flex 3/5 with pain, knee flex and ext 4/5 with pain in low back, DF 4/5, PF 5/5 Sensation: WNL Bed Mobility/Transfers: Close supervision STS, at RW Close supervision stand to sit Gait: RW, close supervision, 20 ft pain throughout. Could ambulate more, but deferred for now due to pain. Balance: Not able to tolerate standardized testing due to pain with standing. Static Sitting: Good Dynamic Sitting: Good Static Standing: Fair, pain limiting Dynamic Standing: Poor, pain limiting Special Tests: Mobility Limitations Standardized Measure [facility] AM-PAC 6 clicks Basic Mobility Inpatient Short Form: 54% disability Informed Consent/Education: Patient instructed in purpose of PT consult and plan of care. Assessment: Patient is a 75 year old female referred to physical therapy services with the diagnosis of multifactoral weakness, chronic pain, peripheral edema likely of CHF component. 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 Groin may suggest hip DJD component as well, ortho should be consulted. Patient presents with clinical signs and symptoms consistent with LE weakness, LE edema, poor balance, contributing to the following functional limitations of poor ambulation tolerance, dependence on AD, fall risk, and progressive limitations with ability to complete household activities required to thrive. AMPAC score. Pain level limiting balance assessment - but fall risk can easily be assume due to AD dependence, reported episodic motor control dysfunction due to L radiculopathy, edema limiting proprioception and joint mobility needed for safe dynamic movement, and she is now loosing independence with driving. She will require skilled inpatient care to return to safe transfers, stair ambulation (deferred assessment at current time due to pain), ambulation tolerance, and dynamic movement ability. Patient is assessed as a Moderate 57712 complexity based on the following: History: See comorbidities Examination: See assessment for impairment and functional limitations Presentation: Evolving Decision Making: Easy Goals: Goals X1 week 1. Supine-Sit independent 2. Sit-Supine independent 3. Sit-Stand independnet 4. Stand-Sit independent 5. Bed-Chair independent 6. Chair-Bed independent 7. Gait 75 feet with SPC, steady and saf 8. Stairs full flight, independent, step over pattern, on rail 9. Independent with home exercise program 10. Balance Good with dynamic standing activities Plan of Care/Treatment Plan: 1-2x/day, 7 days/week x 1 week. Plan of care has been reviewed with the GREENSMAN providing the service under Physical Therapy direction. Initiate Physical Therapy intervention for strengthening, bed mobility, manual therapy, transfers, gait, stairs, balance training, use of assistive device. DISCHARGE RECOMMENDATIONS: Home with outpatient PT if able to ambulate stairs safely SNF for continued rehabilitation, if not able to safely ambulate stairs to her apartment. TREATMENT CODE/TIME: 7:55-8:25, 30 min, [id number] Thank you for this referral.
--- NOTE | 2021-10-04 08:41 | INITIAL_ITS ---
- If Service Date Differs Date of service: 10/04/21 Time of Service: 08:41 Care Management Initial Assess REASON FOR HOSPITALIZATION:: Weakness PAST MEDICAL HISTORY/PAST SURGICAL HISTORY:: Weakness (Acute). Bilateral edema of lower extremity (Acute). Adult failure to thrive (Acute). Chronic pain of both lower extremities (Acute). Breath shortness (Acute). CHF (congestive heart failure) (Chronic). Severe pain (Acute). Nodule of spleen (Acute). Dys pnea on exertion (Acute). Coronary artery disease involving [place] coronary artery of [place] heart without angina pectoris (Acute). Edema of both lower legs (Chronic). Bilateral groin pain (Chronic). & buttock .. see PMR note, 08/2021. JOSTIN (acute kidney injury) (Acute). Cr 1.7 vs 1.5, 09/03/21 .. complicating diuresis. Chronic renal insufficiency, stage II (mild) (Chronic). Mild-Mod CKD G3a (GFR 48, 08/2020). Edema due to congestive heart failure (Chronic). Acute on chronic, presumed CHF.. following diuresis per Dr. Perez direction, 06/2021. Diastolic dysfunction (Chronic). Per Cardio Avani), 09/2018 ... June 29, 2010: LVEDP 23 mm mercury. January 31, 2000. LVEDP 7 mm mercury, rising to 21 mm mercury after 1 L normal saline over 10 minutes. Wedge pressure 19 mm mercury .. mild pulmonary hypertension on right heart catheterization (40- 45 MmHG). Hx recurrent pericarditis/ pericardial effusion, Sjogren's syndrome. Sacroiliac dysfunction (Acute). 08/23/21 [facility] Pain and spine note. Displacement of lumbar intervertebral disc (Acute). 08/23/21 [facility] Pain and spine note. Lumbar stenosis (Chronic). with lumbosacral radiculopathy per [facility]. Hiatal hernia (Chronic). General/Bariatric Surgery on HOLD 2' CHF, Hip Pain. Widened retrocardiac hiatal hernia, 7cm x 5cm AP. Larger than 2012..Hx GERD, with possible new symptoms (12/2020). Surgery? Osteoarthritis of hips, bilateral (Acute 06/03/21). [facility] xray. Abnormal chest CT (Acute). [facility] 06/03/21: Recommendations to be discussed w/ pt;. 1. F/u imaging of enlarged subcarinal node 3-6mo. 2. Correlating mammography or breast u/s for breast nodules (non- emergent). 3. Dedicated imaging for indeterminate splenic lesion. 4. Repeat Chest CT Q12mo to f/u on nodules bi-lat. Lung nodule < 6cm on CT (Acute). 4mm, per 12/2020 CT (new since 2012).. 6 mo FU [ ]. Shrinking lung syndrome (Acute). Restrictive lung disease (Acute). PFT, 01/2021 (Spirometry: Muscle pressures are decreased.. diffusion [capacity] reduced.. Airway resistance normal...Possible mild restrictive lung disease with decreased muscle pressures and a reduced diffusion. (compared to 02/23/2012, total lung capacity & diffusion is reduced .. Clinical Correlation (?) ik. Sjogren's disease (Chronic). GERD (gastroesophageal reflux disease) (Chronic). Tubular adenoma of colon (Chronic 04/25/16). Prediabetes (Acute). A1C 5.8. Hypothyroidism (Chronic). Medical History . Abnormal finding on imaging. CT (Lung Ca Screen), 12/2020: Increased markings, 4mm RLL nodule, Dec volume, widened hiatal hernia. Achilles tendonitis. Left, with plantar fasciitis. Acute nonintractable headache. Anterior epistaxis. BPPV (benign paroxysmal positional vertigo). Chronic antral gastritis. Chronic pain. Dysphagia. Fatigue. severe, sudden onset, napped x hours this week (2' fluconazole?). Femoroacetabular impingement of both hips. Former smoker. Quit 05/2009. Herpes simplex. Hip effusion, right. Aspirated, Ortho, 06/2021. Hyperlipidemia (07/23/12). Hx declining statin? Increased BMI (body mass index) (05/11/17). Morbid obesity per [facility] Gen Surge 04/21/21 note. Left carpal tunnel syndrome. Lichen sclerosus et atrophicus. Halbetasol per [facility], 01/2021. (2019. Patient advised to begin topical steroid to vulva). Lipoma of left upper extremity. Localized osteoarthritis of right knee. Low back pain. Neoplasm of uncertain behavior of skin (05/15/14). Left forehead, status post excision with primary closure. Seborrheic keratosis by final pathology. 05/22. 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 MILD, per 03/2021 Vascular Eval ([facility]No intervention planned).. TAYLER ([facility]) shows borderline/normal results. Pericardial disease (07/23/12). 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 2012: recurrence - responded to indocin and colchicine. 2019: F/U with Dr. Perez on 01/06/20. Posterior tibial tendon dysfunction, left. Restless leg syndrome. Screening mammography declined. 12/2020 EO. Severe obstructive sleep apnea. 06/13/21 Sleep study note. Severe right groin pain. x 2 weeks, with Hx low grade discomfort x months. Hx UrSling. Rt thigh pain described. Shortness of breath. Sialoadenitis (10/31/13). . Skin lesion of neck. Snoring. Stopped smoking with greater than 40 pack year history. Strain of muscle of right groin region. Tobacco dependence. Unilateral primary osteoarthritis, left knee. Abdominal hysterectomy. ENDOMETRIOSIS; ONE OVARY REMAINS. Colonoscopy - IV Sedation (04/25/16). History of ankle surgery. hardware present. History of arthroplasty of finger of left hand. History of bunionectomy of both great toes. History of carpal tunnel surgery of left wrist. History of colpocleisis. History of suburethral sling procedure. 12/18/18 Vaginectomy/colpocleisis with Posterior colporrhapy and transobturator mid urethral sling at [facility]. Hx of appendectomy. Hx of thumb surgery. Prolapse of female pelvic organs. Stage III post hysterectomy vaginal prolapse with stress incontinence. Rx at [facility] 12/18/18. Status post abdominal hysterectomy. Status post tonsillectomy. 2018? Tonsillectomy PREVIOUS FUNCTIONAL STATUS/SOCIAL/FAMILY SUPPORTS:: Fe lives in [place] alone. 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 Fe uses a cane and drives and is independent at baseline. She has 3 sons that live out of State. Her friend Alisha Taveras is supportive and brings her groceries when she is unable to get to the grocery store herself. CURRENT FUNCTIONAL STATUS:: Fe was lying in bed when CM met with her. She is alert, oriented and easy to engage in conversation. Fe has found it difficult to manage at home due to increased pain and LE edema. Fe is agreeable to a SNF referral to [facility] for STR prior to discharging home. ADVANCE DIRECTIVES:: HCA from on file, HCA is Rosita Metcalf Has patient been provided with info about the portal/API?: Yes Did the patient sign up for the portal?: Yes (Prior to admission) CODE STATUS:: Full Code INSURANCE COVERAGE / FINANCIAL ISSUES:: [place]. Medicare CURRENT HOME/COMMUNITY SERVICES/EQUIPMENT:: MOW. [facility]-transportation. MARIO ALBERTOA RN, PT, OT, TECHNICAL DESIGNER. Celeste PRIMARY CARE PHYSICIAN:: Mariajose Cuenca POTENTIAL DISCHARGE NEEDS:: SNF for STR PATIENT/FAMILY EDUCATION NEEDS:: Review discharge instructions, limitations, medications and plan to follow up with community providers. ask me three. TRANSPORTATION:: Uses [facility] w/c van. PLAN:: Anticipate, Fe will discharge to SNF for STR prior to discharging home vs. Home with resumption of [facility] RN, PT, OT, TECHNICAL DESIGNER services. SNF referral pending [facility]. Transportation dependent on disposition. Readmission - Within the Past 30 Days Yes or No: Y - Date of First Admission Date of 1st Admission: 09/09/21 - Date of this Admission Date of Admission: 10/04/21 This admission was: Through ED - Office Visit Since 1st Admission Have you seen your PCP in the office since discharge?: Yes Date of PCP Appointment: 09/24/21 Had an appointment Been Scheduled?: Yes - Speicalist Appointments Have you seen any other specialist since your 1st Admission?: No - I. Interview patient and/or Family Difficulty reaching your doctor or getting an office appt?: No Have you had trouble purchasing/ or taking medication?: No How do you take your medications and set up your pills?: Self manages, per pt. Have you had trouble with getting meals at home?: No Describe your typical meals since you have been home: Has LYNs and her neighbor has been cooking her meals. Did you feel ready for discharge when you left the last time: Yes Were services received that you thought were set up on disch: Yes What services were received?: [facility] PT/OT Did you call your physician beore you came to the ED?: No (No, went to ER on Monday) Did your physician tell you to come in?: No (No, went to ER on Monday) How do you think you became sick enough to come back?: Fe reports that she became progressively weak with noted increased LE edema following her initial discharge. - If the patient had a VNA ordered Did the patient have a VNA order?: Yes Did you call the VNA before you came?: No Did the VNA tell you to come to the hospital?: No Do you know if the VNA called your physician?: No - Ask the Care Team Members: What do you think caused the patient to be readmitted: Per ER, Bilateral edema of lower extremity, Adult failure to thrive, Chronic pain of both lower extremities, Breath shortness, CHF (congestive heart failure) - ED visits How many ED visits in the past 12 months: 2 - Assessment for Readmission Summary of readmission circumstances, based upon interviews: Fe discharged home via [facility] W/C Van, with lift assistance on 09/14/21. Ryan Milian/Marilia [facility] RN/PT/OT/TECHNICAL DESIGNER services were ordered and per Fe services were received. Fe was able to follow up with her PCP on 09/20/21 and 09/24/21. Fe was receiving MOW and her neighbor was helpful. Fe became increasingly weak following discharge. Fe may have benefited from SNF for STR prior to returning home, but declined SNF on discharge.
[2021-10-04] MEDS: Normal Saline Flush 10 ML SYR IVP ×3 (09:05→20:33)
[2021-10-04] MEDS: Furosemide 40 MG/4 ML VIAL IVP ×2 (09:49→16:15)
[2021-10-04] MEDS: Lachydrin 12% LOTION 225 GM BTL TP ×2 (10:19→20:31)
[2021-10-04 11:20] LABS: Ferritin 188 ng/mL (8-252); Folate 17.4 ng/mL (8.6-20.0); Magnesium 2.3 mg/dL (1.8-2.4); TSH 5.46 uIU/mL (0.36-3.74); Troponin I < 50 ng/L (<or=60); Vitamin B12 221 pg/mL (193-986)
[2021-10-04] MEDS: Tiotropium/Olodaterol 10 PUFF INHALER 2 PUFF IH (11:36)
[2021-10-04] MEDS: Enoxaparin 40 MG/0.4 ML SYR SC (13:15)
--- NOTE | 2021-10-04 14:37 | W.PM.PROGNOT ---
Date of Service Date of service: 10/04/21 Time of Service: 14:37 Assessment and Plan Assessment and plan (1) Edema of both lower legs: Status: Chronic Assessment and plan: Patient has had progressive lower extremity edema which is nonpitting most likely secondary to change in activity, obesity and right-sided heart failure by history. Ultrasound BLE 09/10/2021 neg for DVT - her exam is similar to when she was here for that admission. Taking spironolactone daily. (2) Edema due to congestive heart failure: Status: Chronic Assessment and plan: This is a chronic problem - monitor (3) Lumbar stenosis: Status: Chronic Assessment and plan: Patient had an MRI revealing lumbar stenosis or degenerative disc disease with radiculopathy on the left. Continue follow-up with spine [place] [facility] [place] evaluation while [place]. Appt end of October discussed with DR Saleem (4) DVT prophylaxis: Status: Deleted Assessment and plan: enoxaparin add tubigrips for compression (5) Discharge planning issues: Status: Deleted Assessment and plan: anticipate discharge to [facility] level facility discussed with Dr Saleem Subjective Subjective Patient reports: still having pain, tolerating a regular diet and voiding w/o difficulty Interval history since last seen: Fe is complaining of pain in her lower back; she said she is [place] [facility] [place] third week of October. Her PCP has ordered some MRI's, I contacted radiology to see if they want to do them while she is here, they will get back to us. She does not have any new trauma. Her pain is unchanged from the usual, however she doesn't think tylenol is working well for her. Toradol prn was ordered. She still lives on the second floor. I asked her what she wanted to do to improve and she said she wants to start PT - she would like to go to the [facility] - that is close to where she lives. Objective Last Vital Signs Temp 36.3 C L 10/04/21 07:41 Pulse 69 10/04/21 07:41 Resp 18 10/04/21 07:41 BP 123/67 10/04/21 07:41 Pulse Ox 95 10/04/21 07:41 Laboratory Results - last 24 hr 10/03/21 10/03/21 10/03/21 20:48 20:48 20:48 WBC 8.44 RBC 3.28 L Hgb 10.3 L Hct 31.3 L MCV 95 MCH 31.4 MCHC 32.9 RDW 12.4 Plt Count 219 MPV 8.7 Reticulocyte % (Auto) Immature Gran % 0.1 Neutrophils % 58.1 Lymphocytes % 27.0 Monocytes % 10.5 Eosinophils % 3.9 Basophils % 0.4 Nucleated RBC % 0.0 Absolute Neutrophils 4.90 Absolute Lymphocytes 2.28 Absolute Monocytes 0.89 H Absolute Eosinophils 0.33 Absolute Basophils 0.03 Sodium 140 Potassium 3.3 L Chloride 101 Carbon Dioxide 29.5 Anion Gap 9.5 BUN 23 H Creatinine 1.4 H Estimated GFR/1.73 m2 36.66 Glucose 103 Calcium 9.7 Magnesium Iron TIBC Transferrin % Sat Ferritin Total Bilirubin 0.3 AST 14 L ALT 22 Alkaline Phosphatase 68 Troponin I < 50 NT-Pro-B Natriuret Pep 416 H Total Protein 7.1 Albumin 3.6 Vitamin B12 Folate TSH COVID-19 Source Nasal/Nares SARS-CoV-2 (PCR) Negative 10/04/21 10/04/21 10/04/21 05:35 05:35 06:45 WBC RBC Hgb Hct MCV MCH MCHC RDW Plt Count MPV Reticulocyte % (Auto) Immature Gran % Neutrophils % Lymphocytes % Monocytes % Eosinophils % Basophils % Nucleated RBC % Absolute Neutrophils Absolute Lymphocytes Absolute Monocytes Absolute Eosinophils Absolute Basophils Sodium 143 Potassium 3.1 L Chloride 102 Carbon Dioxide 34.2 H Anion Gap 6.8 BUN 21 H Creatinine 1.3 H Estimated GFR/1.73 m2 39.93 Glucose 104 Calcium 9.2 Magnesium 2.3 Iron 37 L TIBC 302 Transferrin % Sat 12 L Ferritin 188 Total Bilirubin AST ALT Alkaline Phosphatase Troponin I < 50 NT-Pro-B Natriuret Pep Total Protein Albumin Vitamin B12 221 Folate 17.4 TSH 5.46 H COVID-19 Source SARS-CoV-2 (PCR) 10/04/21 10/04/21 06:45 06:45 WBC 6.21 Cancelled RBC 3.23 L Cancelled Hgb 10.2 L Cancelled Hct 31.2 L Cancelled MCV 97 H Cancelled MCH 31.6 Cancelled MCHC 32.7 Cancelled RDW 12.3 Cancelled Plt Count 198 Cancelled MPV 8.8 Cancelled Reticulocyte % (Auto) 1.3 Immature Gran % Neutrophils % Lymphocytes % Monocytes % Eosinophils % Basophils % Nucleated RBC % Absolute Neutrophils Absolute Lymphocytes Absolute Monocytes Absolute Eosinophils Absolute Basophils Sodium Potassium Chloride Carbon Dioxide Anion Gap BUN Creatinine Estimated GFR/1.73 m2 Glucose Calcium Magnesium Iron TIBC Transferrin % Sat Ferritin Total Bilirubin AST ALT Alkaline Phosphatase Troponin I NT-Pro-B Natriuret Pep Total Protein Albumin Vitamin B12 Folate TSH COVID-19 Source SARS-CoV-2 (PCR) Reviewed Pertinent PMH: Yes
[2021-10-04] MEDS: Ketorolac 15 MG/ML VIAL IVP ×2 (14:54→20:31)
--- NOTE | 2021-10-04 15:06 | PT.INTREAT ---
Date of service: 10/04/21 Time of Service: 14:06 PT Notes Visit Reasons: Weakness Inpatient Physical Therapy Treatment Note [facility] Date: 10/04/2021 PRECAUTIONS: Activity as tolerated, LBP SUBJECTIVE: Fe is pleasant and agreeable to participating in PT. She reports that she continues to struggle with her LBP making it difficult to be home alone. She is agreeable to having a referral sent to [facility] for rehab prior to returning to home. OBJECTIVE: PAIN: Patient c/o B hip and groin pain and LBP with transfers and ther ex TRANSFERS/BED MOBILITY: Supine-sit: SBA Sit-supine: SBA MAUNAL THERAPY: With patient in side-lying on her R side, perform STM and TPR techniques throughout L paraspinals, glutes, and hip musculature. Also instruct patient in PPT, DKTC, forward reach in sitting, and trunk rotation to L/R. ASSESSMENT: Patient appears limited by LBP and referred pain into groin and B hips with movement. She requires cueing to avoid breath-holding with all movement. She also requires extra time to complete transfers and bed mobility at this time due to pain, although she is able to complete without assist. PLAN: Continue with manual therapy efforts for pain relief to improve activity and movement tolerance. Add stair training and continue with gait training tomorrow. TREATMENT CODE/TIME: 39 minutes; 39362 x3 (14:06)
[2021-10-04] MEDS: rOPINIRole 1 MG TAB 4 MG PO (21:23)
[2021-10-04] MEDS: Sertraline 50 MG TAB PO (21:24)
[2021-10-05] MEDS: Ketorolac 15 MG/ML VIAL IVP ×2 (05:08→13:48)
[2021-10-05] MEDS: Normal Saline Flush 10 ML SYR IVP ×3 (05:08→15:54)
[2021-10-05] MEDS: Levothyroxine 75 MCG TAB PO (05:08)
[2021-10-05 06:46] LABS: Abs Immature Grans 0.01 10^3/uL (0.0-0.06); Absolute Basophil Count 0.03 10^3/uL (0.0-0.2); Absolute Eosinophil Count 0.44 10^3/uL (0.0-0.7); Absolute Lymphocyte Count 2.14 10^3/uL (1.2-3.4); Absolute Monocyte Count 0.62 10^3/uL (0.1-0.8); Absolute Neutrophil Count 2.44 10^3/uL (1.2-6.7); Basophils % 0.5; Eosinophils % 7.7; HCT 31.4 % (36.0-46.0); HGB 10.1 g/dL (11.2-15.7); Immature Grans % 0.2; Lymphocytes % 37.7; MCH 31.3 pg (27.0-33.0); MCHC 32.2 % (32.0-36.0); MCV 97 fL (80-95); MPV 8.6 fL (8.0-11.0); Monocytes % 10.9; Platelet Count 205 10^3/uL (130-400); RBC 3.23 10^6/uL (3.93-5.22); RDW 12.6 % (11.7-14.6); RDW-SD 45.5 fL; WBC 5.68 10^3/uL (4.4-10.8)
[2021-10-05 07:05] VITALS: BP 121/68; PULSE 74; RESP 16; TEMP 36.2; O2SAT 94
[2021-10-05 07:05] LABS: Anion Gap 7.9 mmol/L (3-11); BUN 25 mg/dL (7-18); CO2 31.1 mmol/L (21.0-32.0); CREATININE 1.7 mg/dL (0.55-1.02); Calcium 8.8 mg/dL (8.5-10.1); Chloride 102 mmol/L (98-107); Glucose 104 mg/dL (74-106); Magnesium 2.1 mg/dL (1.8-2.4); Potassium 3.3 mmol/L (3.5-5.1); Sodium 141 mmol/L (136-145)
[2021-10-05] MEDS: Sucralfate 1 GM TAB PO ×4 (07:22→21:50)
[2021-10-05] MEDS: Tiotropium/Olodaterol 10 PUFF INHALER 2 PUFF IH (07:27)
[2021-10-05] MEDS: Isosorbide Mononitrate 30 MG TABCR 60 MG PO (08:17)
[2021-10-05] MEDS: Enoxaparin 40 MG/0.4 ML SYR SC (08:17)
[2021-10-05] MEDS: Aspirin E.C. 81 MG TABEC PO (08:17)
[2021-10-05] MEDS: Furosemide 40 MG/4 ML VIAL IVP (08:17)
[2021-10-05] MEDS: Pantoprazole 40 MG TABCR PO ×2 (08:18→20:18)
[2021-10-05] MEDS: Docusate Sodium 100 MG CAP PO (08:18)
[2021-10-05] MEDS: Spironolactone 25 MG TAB PO (08:18)
[2021-10-05] MEDS: Losartan 50 MG TAB 100 MG PO (08:18)
--- NOTE | 2021-10-05 09:09 | OT.INIE ---
Occupational Therapy Notes Inpatient Occupational Therapy Evaluation Date: 10/05/21 Referring Doctor:Dr. Saleem OT Orders: Non urgent Precautions: Fall, standard, Full PATIENT PROFILE/ADMITTING DIAGNOSIS: Pt is a 75 year old female admitted for the following diagnosis of weakness, (B) LE edema, adult failure to thrive, chronic pain, SOB, CHF, severe pain, nodule of spleen, dyspnea on exertion, hypoxia, JOSTIN, (B) groin pain, chronic renal insufficiency, displacement of lumbar intervertebral disc, osteoarthritis of (B) hips, abnormal chest CT, shrinking lung syndrome, Sjorgrens disease, GERD,prediabetes, hypothyroidism. Past Medical History: All Active Problems?(Updated 10/04/21 @ 00:16 by Kirby Hansen MD) Weakness (Acute) Bilateral edema of lower extremity (Acute) Adult failure to thrive (Acute) Chronic pain of both lower extremities (Acute) Breath shortness (Acute) CHF (congestive heart failure) (Chronic) Severe pain (Acute) Nodule of spleen (Acute) Dyspnea on exertion (Acute) Coronary artery disease involving [place] coronary artery of [place] heart without angina pectoris (Acute) Edema of both lower legs (Chronic) Bilateral groin pain (Chronic) & buttock .. see PMR note, 08/2021.JOSTIN (acute kidney injury) (Acute) Cr 1.7 vs 1.5, 09/03/21 .. complicating diuresis.Chronic renal insufficiency, stage II (mild) (Chronic) Mild-Mod CKD G3a (GFR 48, 08/2020).Edema due to congestive heart failure (Chronic) Acute on chronic, presumed CHF.. following diuresis per Dr. Perez direction, 06/2021.Diastolic dysfunction (Chronic) Per Cardio Avani), 09/2018 ... June 29, 2010: LVEDP 23 mm mercury. January 31, 2000. LVEDP 7 mm mercury, rising to 21 mm mercury after 1 L normal saline over 10 minutes. Wedge pressure 19 mm mercury .. mild pulmonary hypertension on right heart catheterization (40-45 MmHG). Hx recurrent pericarditis/ pericardial effusion, Sjogren's syndrome.Sacroiliac dysfunction (Acute) 08/23/21 [facility] [place] Pain and spine noteDisplacement of lumbar intervertebral disc (Acute) 08/23/21 [facility] Pain and spine noteLumbar stenosis (Chronic) with lumbosacral radiculopathy per Pain ClinicHiatal hernia (Chronic) General/Bariatric Surgery on HOLD 2' CHF, Hip Pain. Widened retrocardiac hiatal hernia, 7cm x 5cm AP. Larger than 2013..Hx GERD, with possible new symptoms (12/2020). Surgery?Osteoarthritis of hips, bilateral (Acute 06/03/21) [facility] xrayAbnormal chest CT (Acute) [facility] 06/03/21:? Recommendations to be discussed w/ pt; 1.? F/u imaging of enlarged subcarinal node 3-6mo. 2.? Correlating mammography or breast u/s for breast nodules (non-emergent). 3.? Dedicated imaging for indeterminate splenic lesion. 4.? Repeat Chest CT Q12mo to f/u on nodules bi-lat.Lung nodule < 6cm on CT (Acute) 4mm, per 12/2020 CT (new since 2012).. 6 mo FU [ ]Shrinking lung syndrome (Acute) Restrictive lung disease (Acute) PFT, 01/2021 (Spirometry: Muscle pressures are decreased.. diffusion [capacity] reduced.. Airway resistance normal...Possible mild restrictive lung disease with decreased muscle pressures and a reduced diffusion. (compared to 02/23/2012, total lung capacity & diffusion is reduced .. Clinical Correlation (?) ikSjogren's disease (Chronic) GERD (gastroesophageal reflux disease) (Chronic) Tubular adenoma of colon (Chronic 04/25/16) Prediabetes (Acute) A1C 5.8Hypothyroidism (Chronic) Medical History? Abnormal finding on imaging CT (Lung Ca Screen), 12/2020: Increased markings, 4mm RLL nodule, Dec volume, widened hiatal hernia.Achilles tendonitis Left, with plantar fasciitisAcute nonintractable headache Anterior epistaxis BPPV (benign paroxysmal positional vertigo) Chronic antral gastritis Chronic pain Dysphagia Fatigue severe, sudden onset, napped x hours this week (2' fluconazole?)Femoroacetabular impingement of both hips Former smoker Quit 05/2009Herpes simplex Hip effusion, right Aspirated, Ortho, 06/2021Hyperlipidemia (07/23/12) Hx declining statin?Increased BMI (body mass index) (05/11/17) Morbid obesity per [facility] Gen Surge 04/21/21 noteLeft carpal tunnel syndrome Lichen sclerosus et atrophicus Halbetasol per [facility], 01/2021. (2019. Patient advised to begin topical steroid to vulva)Lipoma of left upper extremity Localized osteoarthritis of right knee Low back pain Neoplasm of uncertain behavior of skin (05/15/14) Left forehead, status post excision with primary closure. Seborrheic keratosis by final pathology. 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 Perez on 01/06/20 Posterior tibial tendon dysfunction, left Restless leg syndrome Screening mammography declined 12/2020 EOSevere obstructive sleep apnea 06/13/21 Sleep study noteSevere right groin pain x 2 weeks, with Hx low grade discomfort x months. Hx UrSling. Rt thigh pain described.Shortness of breath Sialoadenitis (10/31/13) Skin lesion of neck Snoring Stopped smoking with greater than 40 pack year history Strain of muscle of right groin region Tobacco dependence Unilateral primary osteoarthritis, left knee Surgical History? Abdominal hysterectomy ENDOMETRIOSIS; ONE OVARY REMAINSColonoscopy - IV Sedation (04/25/16) History of ankle surgery hardware presentHistory of arthroplasty of finger of left hand History of bunionectomy of both great toes History of carpal tunnel surgery of left wrist History of colpocleisis History of suburethral sling procedure 12/18/18 Vaginectomy/colpocleisis with Posterior colporrhapy and transobturator mid urethral sling at [facility] Hx of appendectomy Hx of thumb surgery Prolapse of female pelvic organs Stage III post hysterectomy vaginal prolapse with stress incontinence. Rx at [facility] 12/18/18. Status post abdominal hysterectomy Status post tonsillectomy 2018?Tonsillectomy Social History/Home Situation: Pt lives in an apartment in [place]. She notes that she has services and notes that she is fairly (I) at her baseline level of function. She states that she is moving to the first floor apartment when she returns which will make it easier for her. She states that she has adaptive equipment, a tub shower and likes to be as (I) as possible. She has difficulty with her JANETT stockings. She also notes that she has 3 sons and multiple grandchildren although none local. Her sister lives nearby. Equipment owned/DME: grab bars, shower seat, raised toilet seat SUBJECTIVE: Pt states that she is doing well. She is feeling better today and states that her pain is so much better managed. OBJECTIVE: General Observation: Pleasant, IV in (R) hand Mental Status: A&Ox4 Pain: 05/20 ROM: RUE AROM WFL L UE AROM WFL FUNCTIONAL MOBILITY/ADLS: Transfers with FWW Sit-Stand (I) Stand-sit (I) Bed-Chair (I) Chair-bed (I) BATHING Pt was in the bathroom when OT arrived standing at sink Bathing UE (I) Bathing LE Min (A) DRESSING standing at sink Dressing UE (I) [facility] gown but requires rest breaks throughout due to fatigue BALANCE: Static sitting Normal Dynamic Sitting Normal Static Standing Good Dynamic Standing Good SPECIAL TESTS: Daily Activity Limitations Standardized Measure [facility] ?6 clicks? Daily Activity Inpatient Short Form: Raw score: 21 Standardized score: 44.27 CMS score: 32.79% INFORMED CONSENT/EDUCATION: Pt instructed in purpose of OT Consult and plan of care. ASSESSMENT: Patient is a 75-year-old female referred to occupational therapy services with diagnosis of weakness, (B) LE edema, adult failure to thrive, chronic pain, SOB, CHF, severe pain, nodule of spleen, dyspnea on exertion, hypoxia, JOSTIN, (B) groin pain, chronic renal insufficiency, displacement of lumbar intervertebral disc, osteoarthritis of (B) hips, abnormal chest CT, shrinking lung syndrome, Sjorgrens disease, GERD,prediabetes, hypothyroidism. Patient presents with clinical signs and symptoms consistent with dx, as demonstrated by the following impairment level findings/functional limitations: Impairments in ADLs/IADL and leisure activities, pain in back, decreased functional activity tolerance, decreased LE functional activity tolerance. [facility] score 21 Patient is assessed as a Low 63533 complexity based on the following: History: see above Examination: see functional limitations as noted above Presentation: evolving Decision Making: AMPAC score 21 GOALS Goals x1 week 1. Grooming standing at sink (I) with brushing teeth with ideal technique 2. Dressing sitting in chair (I) 3. Bathing standing at sink (I) with decreased fatigue 4. Toileting (I) on toilet 5. Eating (I) PLAN OF CARE/TREATMENT PLAN: 1x/day, 5 days/ week x 1week Initiate Occupational Therapy Services for bathing, dressing, grooming, toileting, eating, transfer training. DISCHARGE RECOMMENDATIONS OT recommends that pt return home with services when medically cleared per MD. TREATMENT TIME/MINUTES/CODES 60278, 20912, 20 minutes (08:35) [facility]
--- NOTE | 2021-10-05 09:12 | CMPROGNOTE_ITS ---
- If Service Date Differs Date of service: 10/05/21 Time of Service: 09:12 Care Management Progress Note S/O: Fe was sitting in her recliner when CM met with her. She is alert, oriented and easy to engage in conversation. Fe is agreeable to SNF for STR prior to returning home. SNF referrals are pending at [facility], [facility] and [facility]. A: 75 year old female admitted to [facility] on 10/03/21 for LE Edema, Adult failure to thrive, Chronic pain, SOB, CHF (congestive heart failure) P: Anticipate, Fe will discharge to SNF for STR prior to discharging home vs. Home with resumption of [facility] RN, PT, OT, [employer] services. SNF referrals are pending at [facility], [facility], [facility] and [facility]. Transportation dependent on disposition.
[2021-10-05] MEDS: Lachydrin 12% LOTION 225 GM BTL TP ×2 (09:26→20:19)
[2021-10-05] MEDS: HYDROcodone 5/Acetaminophen 325 TAB PO ×3 (09:34→23:27)
[2021-10-05] MEDS: Potassium Chloride 20 MEQ TABCR PO (09:34)
[2021-10-05] MEDS: POTASSIUM CHLORIDE 20 MEQ/100 ML BAG 50 MEQ IVPB (10:47)
[2021-10-05 11:33] LABS: Lyme Ab w Rflx to Lyme Confirm Negative (Negative)
--- NOTE | 2021-10-05 12:19 | PT.INTREAT ---
Date of service: 10/05/21 Time of Service: 09:55 PT Notes Visit Reasons: Weakness Inpatient Physical Therapy Treatment Note [facility] Date: 10/05/2021 PRECAUTIONS: Activity as tolerated, LBP SUBJECTIVE: Fe is pleasant and agreeable to participating in PT. She reports decreased discomfort and increased mobility following manual therapy and stretching techniques yesterday afternoon. She reports that she has been transferring and walking within her room independently with a FWW. She is agreeable to referrals being sent to local SNFs for ST rehab prior to returning to home. OBJECTIVE: PAIN: Patient c/o B hip and groin pain and LBP with transfers and ther ex TRANSFERS/BED MOBILITY: Supine-sit: I with HOB flat Sit-supine: I with HOB flat Sit-stand: I Stand-sit: I Bed-chair: I with FWW Chair-bed: I with HFWW GAIT: Assistive device: FWW Weight bearing: Full Assist: I Distance: 250' in a.m.; 10' in p.m. Deviation: Antalgic gait MANUAL THERAPY: With patient in side-lying on her R side, perform STM and TPR techniques throughout L paraspinals, glutes, and hip musculature. Also instruct patient in calf stretching, PPT, SKTC, bent-knee fallouts, forward reach in sitting, and trunk rotation to L/R. STAIRS: Up/down 6x4 and 4x6 using U rail/SPC and a step-to pattern independently without need for cueing for sequence. ASSESSMENT: Patient appears limited by LBP and referred pain into groin and B hips with movement. She requires cueing to avoid breath-holding with all movement. She also requires extra time to complete transfers and bed mobility at this time due to pain, although she is able to complete without assist. PLAN: Continue with manual therapy efforts for pain relief to improve activity and movement tolerance. Add stair training and continue with gait training tomorrow. TREATMENT CODE/TIME: Session 1: 25 minutes; [id number], [id number] (09:55) Session 2: 28 minutes; [id number], [id number] (14:12)
--- NOTE | 2021-10-05 12:20 | DSE_ITS ---
Date of service: 10/05/21 Time of Service: 12:21 DS: Diagnosis Discharge Diagnosis (1) CHF (congestive heart failure): Status: Chronic Asessment and Plan: Chronic HFpEF diastolic CHF Lasix IV (2) Edema of both lower legs: Status: Chronic Asessment and Plan: BLE 2+ pitting edema - apply tubigrips, elevate (3) Edema due to congestive heart failure: Status: Chronic Asessment and Plan: See above (4) Lumbar stenosis: Status: Chronic Asessment and Plan: Chronic lumbar pain - ketorelac IV, OT/PT (5) DVT prophylaxis: Status: Deleted (6) Discharge planning issues: Status: Deleted Discharge Plan Disposition Patient Disposition: SNF (LEVEL 1) [facility] Condition: Stable Discharge Details Reason For Visit: Bilateral lower leg edema and weakness Admit Date/Time: 10/04/21 00:22 Admit Provider: Kirby Hansen Attending Provider: Kirby Hansen Primary Care Provider: Mariajose Cuenca Hospital Course Hospital Course: ?Fe is a 75 year old woman that was admitted to [facility] on 09/09 for hypoxia and bilateral edema of lower extremity She was discharged home 09/15 with home health services. She presented to the [facility] emergency department with continued BLE edema and adult failure to thrive. She has chronic pain of both lower extremities, gets short of breath easily and is inquiring about going to rehab to get stronger. She saw her PCP 10/03 and there were diagnostic imaging orders. I inquired as to if they could be done while she is here. Radiology sa id no, they are reaching out to her PCP for more information. Fe states she continues to live on the second floor, although moving to the first floor in the near future, and feels she is unable to care for herself. She states she has nothing specific, it is everything piled up, her chronic conditions. She did present with an elevated proBNP and some pulmonary congestion. She is unable to transfer independently. She had an OT assessment here and they recommend she has services at home. As to chronic pain, this is bilateral LE, and patient states she had MRI showing multiple disc herniations and compression left L4 nerve root. Had epidural x 1 in August with some improvement. She is discharged to the [facility]. Discussed with Dr Saleem; Discharge planning and care of patient took 60 minutes Home Meds and New Rx's Prescriptions: New hydrocodone-acetaminophen 5-325 mg tablet 1 tab PO Q6H PRNQty: 14 0RF Continued nitroglycerin 0.4 mg tablet, sublingual 0.4 mg sublingual Q5M PRN (Reason: chest pain) Qty: 30 1RF Rx Instructions: do not exceed 3 doses per episode halobetasol propionate 0.05 % ointment 1 applic topical BID Qty: 50 4RF Rx Instructions: apply tiny amount to vulvar bid for 2weeks then daily for 2weeks then twice weekly ammonium lactate 12 % cream 1 applic topical BID Qty: 385 1RF Rx Instructions: Trial for dry skin, edema isosorbide mononitrate 30 mg tablet extended release 24 hr 60 mg PO DAILY Label Comments: Pt states she takes 60mg daily (Dr. Perez - Cardiology) No country hosp. 04/2021 EO Stiolto Respimat 2.5-2.5 mcg/actuation mist 2 puff inhalation DAILY Qty: 4 5RF gabapentin 300 mg capsule See Rx Instructions PO BID PRN (Reason: neuralgia) Qty: 60 1RF Rx Instructions: 300mg orally twice a day PRN; may hold daytime dose for drowsiness torsemide 20 mg tablet See Rx Instructions PO DAILY MDD 60mg Qty: 90 1RF Rx Instructions: 40mg, 60mg for severe edema as per discussion with Cardiology or PCP orally daily; Increased dose for diuresis; may consider 60mg for severe edema. spironolactone 25 mg tablet 25 mg PO DAILY Qty: 30 0RF Rx Instructions: Trial for severe edema losartan 100 mg tablet 100 mg PO DAILY Rx Instructions: 09/23/21 started ropinirole 4 mg tablet 4 mg PO QHS Qty: 90 3RF Rx Instructions: administer 1-3 hours before bedtime (dose increase from 3mg to 4mg on 09/24/21) IK sertraline 50 mg tablet 50 mg PO QHS Qty: 90 3RF Rx Instructions: start with half-tab for 3 days, then increase to 1tab (50mg) daily. cholecalciferol (vitamin D3) [Vitamin D3] 2,000 UNIT capsule 2,000 unit PO DAILY Label Comments: 01/18/17-now takes 5000U/pps meclizine 25 mg tablet 12.5 - 25 mg PO TID PRN (Reason: dizziness) Qty: 30 4RF pantoprazole 40 mg tablet,delayed release (DR/EC) 40 mg PO BID Qty: 60 2RF sucralfate 100 mg/mL suspension 10 ml PO QACHS Qty: 420 1RF Rx Instructions: Trial for break-through reflux levothyroxine 75 mcg tablet 75 mcg PO DAILY Qty: 90 1RF Rx Instructions: Increase based on 09/03/21 labs docusate sodium [Colace] 100 mg capsule 100 mg PO BID polyethylene glycol 3350 [Miralax] 17 gram/dose powder 17 g PO BID PRN (Reason: constipation) Qty: 510 0RF aspirin [Aspir-81] 81 MG tablet,delayed release (DR/EC) 81 mg PO DAILY Discontinued hydrocodone-acetaminophen 5-325 mg tablet 1 tab PO Q4H PRN MDD 10mg hydrocodone PRN (Reason: severe pain) Qty: 20 0RF Rx Instructions: For severe edema and hip/back pain, short-term Discharge Instructions Instructions: Heart Failure (DC), Edema (DC) Stand Alone Forms: Nursing Discharge Form Referrals: Mariajose Ceunca DO [Primary Care Provider] - Activity:: Activity as Tolerated Equipment/Supplies:: Walker Diet:: Low Sodium DS: Summary Time Spent with Patient providing and/or coordinating discharge services: Greater than 30 minutes Status at Discharge Functional status at discharge: uses cane/walker Overall status at discharge: patient is progressing back to baseline Mental Status: mental status grossly normal Speech and Movement: speech and movement normal Mood: congruent mood Affect: normal affect Exam Psych Mental Status: mental status grossly normal Speech and Movement: speech and movement normal Mood: congruent mood Affect: normal affect DS: Data Vitals/I&O Vitals and I&O: Vital Signs Temperature 36.2 C L 10/05/21 07:05 Temperature Source Tympanic 10/05/21 07:05 Pulse 74 10/05/21 07:05 Pulse Rhythm Regular 10/05/21 08:47 Pulse 73 10/04/21 01:30 Respiratory Rate 16 10/05/21 07:05 Respiratory Effort 10/05/21 08:47 Respiratory Depth Normal 10/05/21 08:47 Respiratory Pattern Normal 10/05/21 08:47 Blood Pressure 121/68 10/05/21 07:05 Blood Pressure Mean 67 10/04/21 01:40 Blood Pressure Position Supine 10/03/21 22:06 Pulse Oximetry 94 10/05/21 07:05 Oxygen Delivery Method Room Air 10/05/21 07:05 Oxygen Flow Rate 0 10/05/21 07:05 Pain Level 2 10/05/21 10:34 Intake & Output 10/04/21 10/05/21 10/05/21 23:59 11:59 23:59 Intake Total 240 / 615 277.5 / 277.5 Output Total 600 / 2950 501 / 501 Balance -360 / -2335 -223.5 / -223.5 Intake: IV 37.5 / 37.5 Oral 240 / 615 240 / 240 Output: Urine 600 / 2700 500 / 500 Stool Other: Urine Color Yellow Yellow Urine Appearance Clear Clear Urine Odor Normal None Stool Size Small Stool Characteristics Soft Voiding Methods Toilet Toilet Data Completed and Pending Labs on day of discharge: Labs from last 24 hours 10/05/21 10/05/21 10/04/21 06:37 06:37 18:45 WBC 5.68 RBC 3.23 L Hgb 10.1 L Hct 31.4 L MCV 97 H MCH 31.3 MCHC 32.2 RDW 12.6 Plt Count 205 MPV 8.6 Immature Gran % 0.2 Neutrophils % 43.0 Lymphocytes % 37.7 Monocytes % 10.9 Eosinophils % 7.7 Basophils % 0.5 Nucleated RBC % 0.0 Absolute Neutrophils 2.44 Absolute Lymphocytes 2.14 Absolute Monocytes 0.62 Absolute Eosinophils 0.44 Absolute Basophils 0.03 Sodium 141 Potassium 3.3 L Chloride 102 Carbon Dioxide 31.1 Anion Gap 7.9 BUN 25 H Creatinine 1.7 H Estimated GFR/1.73 m2 29.30 Glucose 104 Calcium 8.8 Magnesium 2.1 Stl Occult Bld Clinic Cancelled [facility] All Active Problems Weakness (Acute) Bilateral edema of lower extremity (Acute) Adult failure to thrive (Acute) Chronic pain of both lower extremities (Acute) Breath shortness (Acute) CHF (congestive heart failure) (Chronic) Severe pain (Acute) Nodule of spleen (Acute) Dyspnea on exertion (Acute) Coronary artery disease involving [place] coronary artery of [place] heart without angina pectoris (Acute) Edema of both lower legs (Chronic) Bilateral groin pain (Chronic) & buttock .. see PMR note, 08/2021. JOSTIN (acute kidney injury) (Acute) Cr 1.7 vs 1.5, 09/03/21 .. complicating diuresis. Chronic renal insufficiency, stage II (mild) (Chronic) Mild-Mod CKD G3a (GFR 48, 08/2020). Edema due to congestive heart failure (Chronic) Acute on chronic, presumed CHF.. following diuresis per Dr. Perez direction, 06/2021. Diastolic dysfunction (Chronic) Per Cardio (Chris), 09/2018 ... June 29, 2010: LVEDP 23 mm mercury. January 31, 2000. LVEDP 7 mm mercury, rising to 21 mm mercury after 1 L normal saline over 10 minutes. Wedge pressure 19 mm mercury .. mild pulmonary hypertension on right heart catheterization (40-45 MmHG). Hx recurrent pericarditis/ pericardial effusion, Sjogren's syndrome. Sacroiliac dysfunction (Acute) 08/23/21 [facility] Pain and spine note Displacement of lumbar intervertebral disc (Acute) 08/23/21 [facility] Pain and spine note Lumbar stenosis (Chronic) with lumbosacral radiculopathy per Pain Clinic Hiatal hernia (Chronic) General/Bariatric Surgery on HOLD 2' CHF, Hip Pain. Widened retrocardiac hiatal hernia, 7cm x 5cm AP. Larger than 2013..Hx GERD, with possible new symptoms (12/2020). Surgery? Osteoarthritis of hips, bilateral (Acute 06/03/21) [facility] xray Abnormal chest CT (Acute) [facility] 06/03/21: Recommendations to be discussed w/ pt; 1. F/u imaging of enlarged subcarinal node 3-6mo. 2. Correlating mammography or breast u/s for breast nodules (non-emergent). 3. Dedicated imaging for indeterminate splenic lesion. 4. Repeat Chest CT Q12mo to f/u on nodules bi-lat. Lung nodule < 6cm on CT (Acute) 4mm, per 12/2020 CT (new since 2012).. 6 mo FU [ ] Shrinking lung syndrome (Acute) Restrictive lung disease (Acute) PFT, 01/2021 (Spirometry: Muscle pressures are decreased.. diffusion [capacity] reduced.. Airway resistance normal...Possible mild restrictive lung disease with decreased muscle pressures and a reduced diffusion. (compared to 02/23/2012, total lung capacity & diffusion is reduced .. Clinical Correlation (?) ik Sjogren's disease (Chronic) GERD (gastroesophageal reflux disease) (Chronic) Tubular adenoma of colon (Chronic 04/25/16) Prediabetes (Acute) A1C 5.8 Hypothyroidism (Chronic) Medical History Abnormal finding on imaging CT (Lung Ca Screen), 12/2020: Increased markings, 4mm RLL nodule, Dec volume, widened hiatal hernia. Achilles tendonitis Left, with plantar fasciitis Acute nonintractable headache Anterior epistaxis BPPV (benign paroxysmal positional vertigo) Chronic antral gastritis Chronic pain Dysphagia Fatigue severe, sudden onset, napped x hours this week (2' fluconazole?) Femoroacetabular impingement of both hips Former smoker Quit 05/2009 Herpes simplex Hip effusion, right Aspirated, Ortho, 06/2021 Hyperlipidemia (07/23/12) Hx declining statin? Increased BMI (body mass index) (05/11/17) Morbid obesity per [facility] Gen Surge 04/21/21 note Left carpal tunnel syndrome Lichen sclerosus et atrophicus Halbetasol per [facility], 01/2021. (2019. Patient advised to begin topical steroid to vulva) Lipoma of left upper extremity Localized osteoarthritis of right knee Low back pain Neoplasm of uncertain behavior of skin (05/15/14) Left forehead, status post excision with primary closure. Seborrheic keratosis by final pathology. 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 TAYLER ([facility]) shows borderline/normal results. 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 Perez on 01/06/20 Posterior tibial tendon dysfunction, left Restless leg syndrome Screening mammography declined 12/2020 EO Severe obstructive sleep apnea 06/13/21 Sleep study note Severe right groin pain x 2 weeks, with Hx low grade discomfort x months. Hx UrSling. Rt thigh pain described. Shortness of breath Sialoadenitis (10/31/13) Skin lesion of neck Snoring Stopped smoking with greater than 40 pack year history Strain of muscle of right groin region Tobacco dependence Unilateral primary osteoarthritis, left knee Surgical History Abdominal hysterectomy ENDOMETRIOSIS; ONE OVARY REMAINS Colonoscopy - IV Sedation (04/25/16) History of ankle surgery hardware present History of arthroplasty of finger of left hand History of bunionectomy of both great toes History of carpal tunnel surgery of left wrist History of colpocleisis History of suburethral sling procedure 12/18/18 Vaginectomy/colpocleisis with Posterior colporrhapy and transobturator mid urethral sling at [facility] Hx of appendectomy Hx of thumb surgery Prolapse of female pelvic organs Stage III post hysterectomy vaginal prolapse with stress incontinence. Rx at [facility] 12/18/18. Status post abdominal hysterectomy Status post tonsillectomy 2018? Tonsillectomy Family History Mother , AGE 91 Alzheimer disease Father , AGE 86 Essential hypertension AAA (abdominal aortic aneurysm) Alzheimer disease Heart disease Hyperlipidemia Bladder cancer Sister No problems noted. Maternal Grandfather , SHOT AGE 35 No problems noted. Paternal Grandfather , AGE 93 Heart disease Maternal Grandmother , AGE 64 Uterine cancer Paternal Grandmother , AGE 73 AAA (abdominal aortic aneurysm) Stroke Son No problems noted. Son Asthma Son No problems noted. Social History Smoking/Tobacco Use Status: Former Tobacco Use Tobacco: How many years used: 45 Smoking risk assessment performed?: Yes Alcohol Intake: current Alcohol Intake frequency: holidays/special occasions only Alcohol type: beer and wine Drug use: Never Substance use type: does not use Counseling given: No Counseling provided: other Adopted: No Caregiver/Support person: No Foster care: No Household members: none Housing: house Number of Children: 3 number of grandchildren: 6 Communication Needs: None Education Level: college Details: Associate's Degree Do you need help understanding health information?: Never 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[employer] Pets and animals: No Sexually active: No Do you think of yourself as: straight/heterosexual Current gender identity: female What is your relationship status?: How often do you talk on the phone with friends or family?: three or more times per week How often do you get together with friends or relatives?: twice per week Do you belong to any clubs or organized social groups?: yes Panel score (0-1 are the most socially isolated patients): 2 What type of physical activity do you participate in: weight lifting and occasional exercise Duration: > 90 minutes/day Frequency: daily Any/Buddhism: Faith Special any needs: No Seatbelt use: always Helmet use: No Drive intox or ride w/intox retail delivery driver: No Do you feel safe at home: Yes Do you feel safe in your relationship?: Yes Additional Social history: lives alone Female Reproductive History Menstrual Menopause type: surgical History History 3 Para Hx # Term Pregnancies 3 Multiple births Hx # Pregnancies Ectopic pregnancies AB induced Hx Number of Living Children AB spontaneous
[2021-10-05 13:28] VITALS: BP 105/65; BP 114/71; BP 93/54; PULSE 71; PULSE 77; PULSE 80
--- NOTE | 2021-10-05 16:46 | PGE_ITS ---
Date of Service Date of service: 10/05/21 Time of Service: 16:46 Assessment and Plan Assessment and plan (1) Edema of both lower legs: Status: Chronic Assessment and plan: Patient has had progressive lower extremity edema which is nonpitting most likely secondary to change in activity, obesity and right-sided heart failure by history. Ultrasound BLE 09/10/2021 neg for DVT - her exam is similar to when she was here for that admission. Taking spironolactone and torsemide (held in hospital) daily. (2) Edema due to congestive heart failure: Status: Chronic Assessment and plan: This is a chronic problem - monitor Tubigrips, elevation (3) Lumbar stenosis: Status: Chronic Assessment and plan: Patient had an MRI revealing lumbar stenosis or degenerative disc disease with radiculopathy on the left. Continue follow-up with spine [facility] and pain clinic at [facility]. PT evaluation while inpatient. Appt end of October discussed with Dr Saleem (4) DVT prophylaxis: Status: Deleted Assessment and plan: enoxaparin add tubigrips for compression (5) Discharge planning issues: Status: Deleted Assessment and plan: DC to the [facility] 11:[address] Saleem Subjective Subjective Patient reports: no new complaints Exam Const General: cooperative, comfortable, no acute distress and ill appearing chronically Nutritional Appearance: obese Orientation: alert, awake and oriented x3 HENWY Head: normal to inspection, normocephalic and atraumatic Mouth: oral mucosae normal Chest Chest: normal inspection of the chest Resp Effort & Inspection: normal respiratory effort Auscultation: diminished lung sounds bilaterally, no rhonchi and no wheezes Cardio Rate: regular rate Rhythm: regular rhythm GI Inspection: normal to inspection and obesity Palpation: soft Skin Lesions: no lesions Rashes: rashes noted (bilateral discoloration/erythema L>R, reports improved) Neuro General: patient alert, patient awake, patient oriented x3 and no focal motor deficits Extrem General: edema Laterality: bilateral Objective Last Vital Signs Temp 36.2 C L 10/05/21 07:05 Pulse 71 10/05/21 13:28 Resp 16 10/05/21 07:05 BP 93/54 L 10/05/21 13:28 Pulse Ox 94 10/05/21 07:05 Laboratory Results - last 24 hr 10/04/21 10/04/21 10/05/21 05:35 18:45 06:37 WBC RBC Hgb Hct MCV MCH MCHC RDW Plt Count MPV Immature Gran % Neutrophils % Lymphocytes % Monocytes % Eosinophils % Basophils % Nucleated RBC % Absolute Neutrophils Absolute Lymphocytes Absolute Monocytes Absolute Eosinophils Absolute Basophils Sodium 141 Potassium 3.3 L Chloride 102 Carbon Dioxide 31.1 Anion Gap 7.9 BUN 25 H Creatinine 1.7 H Estimated GFR/1.73 m2 29.30 Glucose 104 Calcium 8.8 Magnesium 2.1 Stl Occult Bld Clinic Cancelled Lyme Disease Antibody Negative 10/05/21 06:37 WBC 5.68 RBC 3.23 L Hgb 10.1 L Hct 31.4 L MCV 97 H MCH 31.3 MCHC 32.2 RDW 12.6 Plt Count 205 MPV 8.6 Immature Gran % 0.2 Neutrophils % 43.0 Lymphocytes % 37.7 Monocytes % 10.9 Eosinophils % 7.7 Basophils % 0.5 Nucleated RBC % 0.0 Absolute Neutrophils 2.44 Absolute Lymphocytes 2.14 Absolute Monocytes 0.62 Absolute Eosinophils 0.44 Absolute Basophils 0.03 Sodium Potassium Chloride Carbon Dioxide Anion Gap BUN Creatinine Estimated GFR/1.73 m2 Glucose Calcium Magnesium Stl Occult Bld Clinic Lyme Disease Antibody
[2021-10-05] MEDS: Furosemide 40 MG TAB PO (17:16)
[2021-10-05 17:17] VITALS: BP 95/64; PULSE 64; RESP 16; TEMP 37; O2SAT 94
[2021-10-05 19:00] VITALS: BP 110/69; PULSE 72; RESP 18; TEMP 36.4; O2SAT 100
[2021-10-05] MEDS: Sertraline 50 MG TAB PO (21:50)
[2021-10-05] MEDS: rOPINIRole 1 MG TAB 4 MG PO (21:50)
[2021-10-05] MEDS: Gabapentin 300 MG CAP PO (21:50)
[2021-10-06] MEDS: HYDROcodone 5/Acetaminophen 325 TAB PO ×2 (03:17→09:40)
[2021-10-06 03:23] VITALS: BP 118/72; PULSE 72; RESP 16; TEMP 36; O2SAT 96
[2021-10-06] MEDS: Levothyroxine 75 MCG TAB PO (06:41)
[2021-10-06 06:51] LABS: Anion Gap 4.8 mmol/L (3-11); BUN 24 mg/dL (7-18); CO2 32.2 mmol/L (21.0-32.0); CREATININE 1.8 mg/dL (0.55-1.02); Calcium 9.1 mg/dL (8.5-10.1); Chloride 105 mmol/L (98-107); Estimated GFR 27.43 (mL/min/1.73m2); Glucose 103 mg/dL (74-106); Magnesium 2.1 mg/dL (1.8-2.4); Potassium 3.7 mmol/L (3.5-5.1); Sodium 142 mmol/L (136-145)
[2021-10-06 07:40] VITALS: BP 130/66; PULSE 63; RESP 18; TEMP 36.2; O2SAT 97
--- NOTE | 2021-10-06 07:55 | PT.INTREAT ---
Date of service: 10/06/21 Time of Service: 07:19 PT Notes Visit Reasons: Bilateral lower leg edema and weakness Inpatient Physical Therapy Treatment Note [facility] Date: 10/06/2021 PRECAUTIONS: Activity as tolerated, LBP SUBJECTIVE: Fe is pleasant and agreeable to participating in PT. She reports decreased discomfort and increased mobility following manual therapy and stretching techniques yesterday afternoon. She states that she twisted in the night which caused her significant pain in the night. OBJECTIVE: PAIN: Patient c/o B hip and groin pain and LBP with transfers and ther ex TRANSFERS/BED MOBILITY: Supine-sit: I with HOB flat Sit-supine: I with HOB flat Sit-stand: I Stand-sit: I Bed-chair: I with FWW Chair-bed: I with FWW GAIT: Assistive device: FWW Weight bearing: Full Assist: I Distance: 10 steps to chair Deviation: Antalgic gait MANUAL THERAPY: With patient in side-lying on her R side, perform STM and TPR techniques throughout L paraspinals, glutes, and hip musculature. Also instruct patient in PPT, SKTC, bent-knee fallouts, forward reach in sitting, and trunk rotation to L/R. Performed B leg pulls and calf stretching. ASSESSMENT: Patient appears limited by LBP and referred pain into groin and B hips with movement. She requires cueing to avoid breath-holding with all movement. She also requires extra time to complete transfers and bed mobility at this time due to pain, although she is able to complete without assist. PLAN: Patient to discharge to SNF-level rehab for continued strengthening and conditioning for improved mobility and activity tolerance prior to returning to home where she lives alone. TREATMENT CODE/TIME: 32 minutes; 94165 x2 (07:19)
[2021-10-06] MEDS: Tiotropium/Olodaterol 10 PUFF INHALER 2 PUFF IH (08:05)
[2021-10-06] MEDS: Potassium Chloride 10 MEQ CAPCR 20 MEQ PO (08:36)
[2021-10-06] MEDS: Losartan 50 MG TAB 100 MG PO (08:36)
[2021-10-06] MEDS: Pantoprazole 40 MG TABCR PO (08:37)
[2021-10-06] MEDS: Spironolactone 25 MG TAB PO (08:37)
[2021-10-06] MEDS: Isosorbide Mononitrate 30 MG TABCR 60 MG PO (08:37)
[2021-10-06] MEDS: Sucralfate 1 GM TAB PO (08:38)
[2021-10-06] MEDS: Docusate Sodium 100 MG CAP PO (08:38)
[2021-10-06] MEDS: Aspirin E.C. 81 MG TABEC PO (08:38)
[2021-10-06] MEDS: Torsemide 20 MG TAB PO (08:39)
[2021-10-06] MEDS: Enoxaparin 40 MG/0.4 ML SYR SC (08:42)
[2021-10-06] MEDS: Lachydrin 12% LOTION 225 GM BTL TP (08:43)
--- NOTE | 2021-10-06 09:26 | OTTR_ITS ---
Occupational Therapy Notes Occupational Therapy Inpatient Treatment Note Date: 10/06/21 PRECAUTIONS: Fall, standard, full SUBJECTIVE: Pt states that she is doing well and going to the [facility] today. She would like to take a shower. OBJECTIVE: PAIN:no c/o pain FUNCTIONAL MOBILITY Sit-stand: (I) Stand-sit: (I) Bed-Shower: (I) Shower-bed: (I) BATHING: in shower Upper Body: (I) face, (B) UE, abdomen, hair Lower Body: (I) (B) LE DRESSING: standing in shower Upper Extremity: (I) don and doffing night gown Lower Extremity: Mod (A) donning underwear ASSESSMENT/PLAN: Plan is for pt to be discharged today to [facility]. TREATMENT CODES/TIME: [id number], 36 minutes Germaine Dial OTR/L [facility]
--- NOTE | 2021-10-06 09:33 | CMDISCH_ITS ---
- If Service Date Differs Date of service: 10/06/21 Time of Service: 09:33 LACE Index Scoring Tool - Questions: Length of Stay (in days): 2 Acuity (Admit via E.D.?): Yes Comorbidities: Any Tumor E.D. Visits: 2 - Answers: Total Score: 9 Risk of Readmission: Low Risk Care Management Discharge Reason for Hospitalization: Bilateral LE Edema, CHF Discharge Plan: Fe is discharged to [facility] via [facility] W/C van for STR prior to returning home. Pt will follow up with her community providers and discharge plan of care as prescribed. Patient/Family Education Needs: Review discharge instructions, limitations, medications and plan to follow up with community providers. ask me three. Services Needed at Discharge: Long Term Facility ([facility]), Transportation ([facility] W[facility]C van)
--- NOTE | 2021-10-06 10:04 | W.PM.DS.N ---
Date of service: 10/06/21 Time of Service: 10:05 DS: Diagnosis Discharge Diagnosis (1) CHF (congestive heart failure): Status: Chronic (2) Edema of both lower legs: Status: Chronic (3) Edema due to congestive heart failure: Status: Chronic (4) Lumbar stenosis: Status: Chronic Discharge Plan Disposition Patient Disposition: SNF (LEVEL 1) [facility] REHAB Condition: Stable Discharge Details Reason For Visit: Bilateral lower leg edema and weakness Admit Date/Time: 10/04/21 00:22 Admit Provider: Kirby Hansen Attending Provider: Kirby Hansen Primary Care Provider: Mariajose Cuenca Hospital Course Hospital Course: ?Fe is a 75 year old woman that was admitted to [facility] on 09/09 for hypoxia and bilateral edema of lower extremity She was discharged home 09/15 with home health services. She presented to the [facility] emergency department with continued BLE edema and adult failure to thrive. She has chronic pain of both lower extremities, gets short of breath easily and is inquiring about going to rehab to get stronger. She saw her PCP 10/03 and there were diagnostic imaging orders. I inquired as to if they could be done while she is here. Radiology said no, they are reaching out to her PCP for more information. Fe states she continues to live on the second floor, although moving to the first floor in the near future, and feels she is unable to care for herself. She states she has nothing specific, it is everything piled up, her chronic conditions. She did present with an elevated proBNP and some pulmonary congestion. She is unable to transfer independently. She had an OT assessment here and they recommend she has services at home. As to chronic pain, this is bilateral LE, and patient states she had MRI showing multiple disc herniations and compression left L4 nerve root. Had epidural x 1 in August with some improvement. She is discharged to the [facility] [place]. Discussed with Dr Saleem; Discharge planning and care of patient took 60 minutes Home Meds and New Rx's Prescriptions: New hydrocodone-acetaminophen 5-325 mg tablet 1 tab PO Q6H PRNQty: 14 0RF Continued nitroglycerin 0.4 mg tablet, sublingual 0.4 mg sublingual Q5M PRN (Reason: chest pain) Qty: 30 1RF Rx Instructions: do not exceed 3 doses per episode halobetasol propionate 0.05 % ointment 1 applic topical BID Qty: 50 4RF Rx Instructions: apply tiny amount to vulvar bid for 2weeks then daily for 2weeks then twice weekly ammonium lactate 12 % cream 1 applic topical BID Qty: 385 1RF Rx Instructions: Trial for dry skin, edema isosorbide mononitrate 30 mg tablet extended release 24 hr 60 mg PO DAILY Label Comments: Pt states she takes 60mg daily (Dr. Perez - Cardiology) No [facility] hosp. 04/2021 EO Stiolto Respimat 2.5-2.5 mcg/actuation mist 2 puff inhalation DAILY Qty: 4 5RF gabapentin 300 mg capsule See Rx Instructions PO BID PRN (Reason: neuralgia) Qty: 60 1RF Rx Instructions: 300mg orally twice a day PRN; may hold daytime dose for drowsiness torsemide 20 mg tablet See Rx Instructions PO DAILY MDD 60mg Qty: 90 1RF Rx Instructions: 40mg, 60mg for severe edema as per discussion with Cardiology or PCP orally daily; Increased dose for diuresis; may consider 60mg for severe edema. spironolactone 25 mg tablet 25 mg PO DAILY Qty: 30 0RF Rx Instructions: Trial for severe edema losartan 100 mg tablet 100 mg PO DAILY Rx Instructions: 09/23/21 started ropinirole 4 mg tablet 4 mg PO QHS Qty: 90 3RF Rx Instructions: administer 1-3 hours before bedtime (dose increase from 3mg to 4mg on 09/24/21) IK sertraline 50 mg tablet 50 mg PO QHS Qty: 90 3RF Rx Instructions: start with half-tab for 3 days, then increase to 1tab (50mg) daily. cholecalciferol (vitamin D3) [Vitamin D3] 2,000 UNIT capsule 2,000 unit PO DAILY Label Comments: 01/18/17-now takes 5000U/pps meclizine 25 mg tablet 12.5 - 25 mg PO TID PRN (Reason: dizziness) Qty: 30 4RF pantoprazole 40 mg tablet,delayed release (DR/EC) 40 mg PO BID Qty: 60 2RF sucralfate 100 mg/mL suspension 10 ml PO QACHS Qty: 420 1RF Rx Instructions: Trial for break-through reflux levothyroxine 75 mcg tablet 75 mcg PO DAILY Qty: 90 1RF Rx Instructions: Increase based on 09/03/21 labs docusate sodium [Colace] 100 mg capsule 100 mg PO BID polyethylene glycol 3350 [Miralax] 17 gram/dose powder 17 g PO BID PRN (Reason: constipation) Qty: 510 0RF aspirin [Aspir-81] 81 MG tablet,delayed release (DR/EC) 81 mg PO DAILY Discontinued hydrocodone-acetaminophen 5-325 mg tablet 1 tab PO Q4H PRN MDD 10mg hydrocodone PRN (Reason: severe pain) Qty: 20 0RF Rx Instructions: For severe edema and hip/back pain, short-term Discharge Instructions Instructions: Heart Failure (DC), Edema (DC) Stand Alone Forms: Nursing Discharge Form [facility] [Outside] Activity:: Activity as Tolerated Equipment/Supplies:: Walker Diet:: Low Sodium Discharge Orders Discharge Orders: Discharge Order (Routine); Ordered 10/06/21 Ordered By: Yamile Estevez DS: Summary Time Spent with Patient providing and/or coordinating discharge services: Greater than 30 minutes Status at Discharge Functional status at discharge: uses cane/walker Overall status at discharge: patient is progressing back to baseline Mental Status: mental status grossly normal Speech and Movement: speech and movement normal Mood: congruent mood Affect: normal affect Exam Const General: cooperative, comfortable and no acute distress Nutritional Appearance: obese Orientation: alert, awake and oriented x3 HENMT Head: normal to inspection, normocephalic and atraumatic Mouth: oral mucosae normal Chest Chest: normal inspection of the chest Resp Effort & Inspection: normal respiratory effort Auscultation: diminished lung sounds bilaterally, no rhonchi and no wheezes Cardio Rate: regular rate Rhythm: regular rhythm GI Inspection: normal to inspection and obesity Palpation: soft Skin Lesions: no lesions Rashes: no rashes Neuro General: patient alert, patient awake, patient oriented x3 and no focal motor deficits Extrem General: edema Laterality: bilateral Psych Mental Status: mental status grossly normal Speech and Movement: speech and movement normal Mood: congruent mood Affect: normal affect DS: Data Vitals/I&O Vitals and I&O: Vital Signs Temperature 36.2 C L 10/06/21 07:40 Temperature Source Tympanic 10/06/21 07:40 Pulse 63 10/06/21 07:40 Pulse Rhythm Regular 10/06/21 09:42 Pulse 73 10/04/21 01:30 Respiratory Rate 18 10/06/21 07:40 Respiratory Effort Non-Labored 10/06/21 09:42 Respiratory Depth Normal 10/06/21 09:42 Respiratory Pattern Normal 10/06/21 09:42 Blood Pressure 130/66 10/06/21 07:40 Blood Pressure Mean 67 10/04/21 01:40 Blood Pressure Position Supine 10/03/21 22:06 Pulse Oximetry 97 10/06/21 07:40 Oxygen Delivery Method Room Air 10/06/21 07:40 Oxygen Flow Rate 0 10/06/21 07:40 Pain Level 6 10/06/21 09:40 Comment 10/05/21 17:17 Intake & Output 10/05/21 10/05/21 10/06/21 11:59 23:59 11:59 Intake Total 277.5 / 997.5 720 / 997.5 960 / 960 Output Total 501 / 1221 720 / 1221 1100 / 1100 Balance -223.5 / -223.5 0 / -223.5 -140 / -140 Intake: IV 37.5 / 37.5 Oral 240 / 960 720 / 960 960 / 960 Output: Urine 500 / 1220 720 / 1220 1100 / 1100 Stool 1 / Other: Urine Color Yellow Yellow Yellow Urine Appearance Clear Clear Clear Urine Odor None None None Stool Size Small Stool Characteristics Soft Soft Soft Formed Formed Voiding Methods Toilet Toilet Toilet Data Completed and Pending Labs on day of discharge: Labs from last 24 hours 10/06/21 10/04/21 06:32 05:35 Sodium 142 Potassium 3.7 Chloride 105 Carbon Dioxide 32.2 H Anion Gap 4.8 BUN 24 H Creatinine 1.8 H Estimated GFR/1.73 m2 27.43 Glucose 103 Calcium 9.1 Magnesium 2.1 Lyme Disease Antibody Negative PFSH All Active Problems Weakness (Acute) Bilateral edema of lower extremity (Acute) Adult failure to thrive (Acute) Chronic pain of both lower extremities (Acute) Breath shortness (Acute) CHF (congestive heart failure) (Chronic) Severe pain (Acute) Nodule of spleen (Acute) Dyspnea on exertion (Acute) Coronary artery disease involving [place] coronary artery of [place] heart without angina pectoris (Acute) Edema of both lower legs (Chronic) Bilateral groin pain (Chronic) & buttock .. see PMR note, 08/2021. JOSTIN (acute kidney injury) (Acute) Cr 1.7 vs 1.5, 09/03/21 .. complicating diuresis. Chronic renal insufficiency, stage II (mild) (Chronic) Mild-Mod CKD G3a (GFR 48, 08/2020). Edema due to congestive heart failure (Chronic) Acute on chronic, presumed CHF.. following diuresis per Dr. Perez direction, 06/2021. Diastolic dysfunction (Chronic) Per Cardio Avani), 09/2018 ... June 29, 2010: LVEDP 23 mm mercury. January 31, 2000. LVEDP 7 mm mercury, rising to 21 mm mercury after 1 L normal saline over 10 minutes. Wedge pressure 19 mm mercury .. mild pulmonary hypertension on right heart catheterization (40-45 MmHG). Hx recurrent pericarditis/ pericardial effusion, Sjogren's syndrome. Sacroiliac dysfunction (Acute) 08/23/21 [facility] Pain and spine note Displacement of lumbar intervertebral disc (Acute) 08/23/21 [facility] Pain and spine note Lumbar stenosis (Chronic) with lumbosacral radiculopathy per [facility] Hiatal hernia (Chronic) General/Bariatric Surgery on HOLD 2' CHF, Hip Pain. Widened retrocardiac hiatal hernia, 7cm x 5cm AP. Larger than 2012..Hx GERD, with possible new symptoms (12/2020). Surgery? Osteoarthritis of hips, bilateral (Acute 06/03/21) [facility] xray Abnormal chest CT (Acute) [facility] 06/03/21: Recommendations to be discussed w/ pt; 1. F/u imaging of enlarged subcarinal node 3-6mo. 2. Correlating mammography or breast u/s for breast nodules (non-emergent). 3. Dedicated imaging for indeterminate splenic lesion. 4. Repeat Chest CT Q12mo to f/u on nodules bi-lat. Lung nodule < 6cm on CT (Acute) 4mm, per 12/2020 CT (new since 2012).. 6 mo FU [ ] Shrinking lung syndrome (Acute) Restrictive lung disease (Acute) PFT, 01/2021 (Spirometry: Muscle pressures are decreased.. diffusion [capacity] reduced.. Airway resistance normal...Possible mild restrictive lung disease with decreased muscle pressures and a reduced diffusion. (compared to 02/23/2012, total lung capacity & diffusion is reduced .. Clinical Correlation (?) ik Sjogren's disease (Chronic) GERD (gastroesophageal reflux disease) (Chronic) Tubular adenoma of colon (Chronic 04/25/16) Prediabetes (Acute) A1C 5.8 Hypothyroidism (Chronic) Medical History Abnormal finding on imaging CT (Lung Ca Screen), 12/2020: Increased markings, 4mm RLL nodule, Dec volume, widened hiatal hernia. Achilles tendonitis Left, with plantar fasciitis Acute nonintractable headache Anterior epistaxis BPPV (benign paroxysmal positional vertigo) Chronic antral gastritis Chronic pain Dysphagia Fatigue severe, sudden onset, napped x hours this week (2' fluconazole?) Femoroacetabular impingement of both hips Former smoker Quit 05/2009 Herpes simplex Hip effusion, right Aspirated, Ortho, 06/2021 Hyperlipidemia (07/23/12) Hx declining statin? Increased BMI (body mass index) (05/11/17) Morbid obesity per [facility] Gen Surge 04/21/21 note Left carpal tunnel syndrome Lichen sclerosus et atrophicus Halbetasol per [facility], 01/2021. (2019. Patient advised to begin topical steroid to vulva) Lipoma of left upper extremity Localized osteoarthritis of right knee Low back pain Neoplasm of uncertain behavior of skin (05/15/14) Left forehead, status post excision with primary closure. Seborrheic keratosis by final pathology. 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 TAYLER ([facility]) shows borderline/normal results. 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 Perez on 01/06/20 Posterior tibial tendon dysfunction, left Restless leg syndrome Screening mammography declined 12/2020 EO Severe obstructive sleep apnea 06/13/21 Sleep study note Severe right groin pain x 2 weeks, with Hx low grade discomfort x months. Hx UrSling. Rt thigh pain described. Shortness of breath Sialoadenitis (10/31/13) Skin lesion of neck Snoring Stopped smoking with greater than 40 pack year history Strain of muscle of right groin region Tobacco dependence Unilateral primary osteoarthritis, left knee Surgical History Abdominal hysterectomy ENDOMETRIOSIS; ONE OVARY REMAINS Colonoscopy - IV Sedation (04/25/16) History of ankle surgery hardware present History of arthroplasty of finger of left hand History of bunionectomy of both great toes History of carpal tunnel surgery of left wrist History of colpocleisis History of suburethral sling procedure 12/18/18 Vaginectomy/colpocleisis with Posterior colporrhapy and transobturator mid urethral sling at [facility] Hx of appendectomy Hx of thumb surgery Prolapse of female pelvic organs Stage III post hysterectomy vaginal prolapse with stress incontinence. Rx at [facility] 12/18/18. Status post abdominal hysterectomy Status post tonsillectomy 2018? Tonsillectomy Family History Mother , AGE 91 Alzheimer disease Father , AGE 86 Essential hypertension AAA (abdominal aortic aneurysm) Alzheimer disease Heart disease Hyperlipidemia Bladder cancer Sister No problems noted. Maternal Grandfather , SHOT AGE 35 No problems noted. Paternal Grandfather , AGE 93 Heart disease Maternal Grandmother , AGE 64 Uterine cancer Paternal Grandmother , AGE 73 AAA (abdominal aortic aneurysm) Stroke Son No problems noted. Son Asthma Son No problems noted. Social History Smoking/Tobacco Use Status: Former Tobacco Use Tobacco: How many years used: 45 Smoking risk assessment performed?: Yes Alcohol Intake: current Alcohol Intake frequency: holidays/special occasions only Alcohol type: beer and wine Drug use: Never Substance use type: does not use Counseling given: No Counseling provided: other Adopted: No Caregiver/Support person: No Foster care: No Household members: none Housing: house Number of Children: 3 number of grandchildren: 6 Communication Needs: None Education Level: college Details: Associate's Degree Do you need help understanding health information?: Never 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[employer] [place] Pets and animals: No Sexually active: No Do you think of yourself as: straight/heterosexual Current gender identity: female What is your relationship status?: How often do you talk on the phone with friends or family?: three or more times per week How often do you get together with friends or relatives?: twice per week Do you belong to any clubs or organized social groups?: yes Panel score (0-1 are the most socially isolated patients): 2 What type of physical activity do you participate in: weight lifting and occasional exercise Duration: > 90 minutes/day Frequency: daily Any/Yazidi: Oriental Orthodox Special any needs: No Seatbelt use: always Helmet use: No Drive 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
--- NOTE | 2021-10-06 13:20 | CHAPLAIN ---
Fe is being discharged today to the [facility] for rehab. She hopes to be stronger in a week's time and return home. She is moving to a first floor apartment in the same building where she lives now. While she's at the [facility], she's having her car detailed and she's looking forward to driving again once she is home.
[2021-10-07 06:14] LABS: Anaplasma phagocytophilum Negative (Negative); B. miyamotoi PCR Negative (Negative); Babesia divergens/MO-1 Negative (Negative); Babesia duncani Negative (Negative); Babesia microti Negative (Negative); Ehrlichia chaffeensis Negative (Negative); Ehrlichia ewingii/canis Negative (Negative); Ehrlichia muris eauclairensis Negative (Negative)
--- NOTE | 2021-10-07 08:10 | PT.INDS ---
PT Notes Visit Reasons: Bilateral lower leg edema and weakness Inpatient Physical Therapy Discharge Summary Dates: 01/07/2022 Dates of Service: 10/04 to 10/06/2021 SUBJECTIVE: Patient complains of interval discomfort throughout the hips bilaterally and low back pain particular with movements OBJECTIVE: Pain: Discomfort throughout the hips bilaterally and low back pain with movement more than resting pain . STRENGTH: . Has full volitional movement throughout strength is generally rated as 4/5 TRANSFERS/BED MOBILITY: Supine-sit: I with HOB flat Sit-supine: I with HOB flat Sit-stand: I Stand-sit: I Bed-chair: I with FWW Chair-bed: I with FWW ? GAIT: Assistive device: FWW Weight bearing: Full Assist: I Distance: 10 steps to chair Deviation: Antalgic gait? BALANCE: Static sitting stable Dynamic sitting stable Static standing stable Dynamic standing stable . ASSESSMENT: Patient is complaining of spinal and hip pain which interferes with her functional status. She is currently not capable of taking care of her self at home GOALS . Not met . DISCHARGE PLAN/RECOMMENDATIONS: . SNF for continued rehabilitation This document serves as a summary of care. No PT services were provided on this date. Disclaimer: This note was created using [employer] voice recognition software. It was reviewed for major content. However, there may be multiple small discrepancies and errors due to the voice recognition aspects of the software.
[2021-11-08 13:56] LABS: Lab Add On Test DONE
== END 2021-10-06 11:00 | disposition skilled nursing facility (03) | DRG 292 ==
LOC: ER 10-04 00:55 → MS 10-04 01:54
PROVIDERS: Internal Medicine; Nurse Practitioner Family; Admitting Provider General Practice; Emergency Provider Student in an Organized Health Care Education/Training Program; PCP Student in an Organized Health Care Education/Training Program; Visit Provider General Practice
DX: I50.33 Acute on chronic diastolic (congestive) heart failure (principal); Z68.41 Body mass index [BMI] 40.0-44.9, adult; G89.29 Other chronic pain; I50.812 Chronic right heart failure; R53.1 Weakness; D64.9 Anemia, unspecified; M51.16 Intervertebral disc disorders with radiculopathy, lumbar region; R62.7 Adult failure to thrive; D73.89 Other diseases of spleen; I25.10 Atherosclerotic heart disease of native coronary artery without angina pectoris; N18.31 Chronic kidney disease, stage 3a; M48.061 Spinal stenosis, lumbar region without neurogenic claudication; M16.0 Bilateral primary osteoarthritis of hip; R91.1 Solitary pulmonary nodule; M35.00 Sjogren syndrome, unspecified; J98.4 Other disorders of lung; K21.9 Gastro-esophageal reflux disease without esophagitis; R73.03 Prediabetes; E03.9 Hypothyroidism, unspecified; Z87.891 Personal history of nicotine dependence; I87.2 Venous insufficiency (chronic) (peripheral)
CPT/HCPCS: 36415; 80048; 80053; 85027; 87635; 87798; 93005; 94640; 96365; 97110; 97140; 97162; 97165; 97530; 97535; 99285; J1650; 71045; 82270; 82607; 82728; 82746; 83540; 83550; 83735; 83880; 84443; 84484; 85025; 85045; 86618; 93010; 99222; 99232; 99239; J0131; J1885; J1940; J3480

== ENCOUNTER 2021-10-12 16:42 | Outpatient (REF) | payer MEDICARE, SELFPAY ==
[2021-10-12 17:57] LABS: Abs Immature Grans 0.01 10^3/uL (0.0-0.06); Absolute Basophil Count 0.03 10^3/uL (0.0-0.2); Absolute Eosinophil Count 0.26 10^3/uL (0.0-0.7); Absolute Lymphocyte Count 2.36 10^3/uL (1.2-3.4); Absolute Monocyte Count 0.64 10^3/uL (0.1-0.8); Absolute Neutrophil Count 3.43 10^3/uL (1.2-6.7); Basophils % 0.4; Eosinophils % 3.9; HCT 33.3 % (36.0-46.0); HGB 10.9 g/dL (11.2-15.7); Immature Grans % 0.1; Lymphocytes % 35.1; MCH 31.8 pg (27.0-33.0); MCHC 32.7 % (32.0-36.0); MCV 97 fL (80-95); MPV 9.5 fL (8.0-11.0); Monocytes % 9.5; Platelet Count 285 10^3/uL (130-400); RBC 3.43 10^6/uL (3.93-5.22); RDW 12.9 % (11.7-14.6); RDW-SD 46.2 fL; WBC 6.73 10^3/uL (4.4-10.8)
[2021-10-12 18:10] LABS: Iron 41 ug/dL (50-170); Total Iron Binding Capacity 343 ug/dL (250-450); Transferrin Sat 12 % (15-50)
[2021-10-12 18:15] LABS: ALT 22 U/L (14-59); AST 17 U/L (15-37); Albumin 3.6 g/dL (3.4-5.0); Alkaline Phosphatase 59 U/L (46-116); Anion Gap 9.2 mmol/L (3-11); BUN 22 mg/dL (7-18); Bilirubin, Total 0.3 mg/dL (0.2-1.0); CO2 31.8 mmol/L (21.0-32.0); CREATININE 1.9 mg/dL (0.55-1.02); Calcium 9.5 mg/dL (8.5-10.1); Chloride 100 mmol/L (98-107); Estimated GFR 25.77 (mL/min/1.73m2); Glucose 127 mg/dL (74-106); Magnesium 1.9 mg/dL (1.8-2.4); Potassium 3.6 mmol/L (3.5-5.1); Sodium 141 mmol/L (136-145); Total Protein 6.3 g/dL (6.4-8.2)
[2021-10-12 18:37] LABS: Hemoglobin A1C 5.7 % (<5.7)
[2021-10-12 18:38] LABS: Ferritin 151 ng/mL (8-252); Folate 13.9 ng/mL (8.6-20.0); TSH (W/Ref FT4) 3.09 uIU/mL (0.36-3.74); Vitamin B12 216 pg/mL (193-986)
[2021-10-14 05:03] LABS: Vitamin D 25 Total 37.9 ng/mL (30-100)
== END 2021-10-12 16:43 | disposition home or self-care (01) ==
LOC: LBN 16:42
PROVIDERS: PCP Student in an Organized Health Care Education/Training Program; Visit Provider Nurse Practitioner Gerontology
DX: T50.2X5A Adverse effect of carbonic-anhydrase inhibitors, benzothiadiazides and other diuretics, initial encounter (principal); I50.9 Heart failure, unspecified; R60.0 Localized edema; M62.81 Muscle weakness (generalized); K21.9 Gastro-esophageal reflux disease without esophagitis; J98.4 Other disorders of lung; N18.2 Chronic kidney disease, stage 2 (mild); I25.10 Atherosclerotic heart disease of native coronary artery without angina pectoris; G89.29 Other chronic pain
CPT/HCPCS: 80053; 82306; 82607; 82728; 82746; 83036; 83540; 83550; 83735; 84443; 85025

== ENCOUNTER → 2021-10-29 01:26 | Outpatient (CLI) | payer MEDICARE, SELFPAY ==
--- NOTE | 2021-10-29 07:45 | DI.CT_ITS ---
Exam(s) CT ABDOMEN PELVIS WO EXAM: CT ABDOMEN PELVIS WO CLINICAL HISTORY: unctlld edema; r/o retroperit path,bilat groin pain,r10.31,r10.32,r60.0. TECHNIQUE: Imaging Protocol: Axial computed tomography images with coronal and sagittal reformatted images were created and reviewed. Oral: yes / COMPARISON: CT CT ABDOMEN PELVIS W from 05/28/[address] CHEST PE CTA from 09/09/2021 FINDINGS: ABDOMEN: Lung Bases: Mild scarring versus atelectasis. Moderate size hiatal hernia. Mild cardiomegaly. Liver: Normal density. No measurable mass. Gallbladder and biliary tract: Gallbladder is contracted. No radiodense calculus or dilation. Pancreas: Mildly atrophic. No mass, no abnormal calcifications or inflammatory process. Spleen: Normal. Kidneys: Normal size, contour and axis. No radiodense stones or obstructive uropathy. No masses seen. Circumaortic left renal vein. Adrenal glands: Stable mild prominence of the or left adrenal gland. No masses seen. Lymph nodes: Within normal limits. Abdominal Aorta: Abdominal portion non-dilated. Atherosclerotic changes. PELVIS: Bladder: Symmetric distention, no gross wall thickening. Bowel: Mild sigmoid diverticulosis. No evidence of diverticulitis. No obstruction or bowel wall thi ckening. Peritoneal cavity: No ascites, collection or mesenteric inflammatory response. Soft tissues: No evid ence of inguinal or umbilical hernia. Reproductive organs: Status post hysterectomy. Bones: Degenerative changes in the spine.. IMPRESSION: No acute abnormality. No evidence of pelvic mass or adenopathy. A hiatal hernia is noted. RADIATION DOSE DELIVERED: 1,242.82mGy.cm Total DLP DATA REPOSITORY: All CT scans at this facility are submitted to the National Radiology Data Registry (NRDR) Dose Index Registry (DIR) with the [employer] (ACR). RADIATION OPTIMIZATION: All CT scans at this facility use at least one of these dose optimization te chniques: automated exposure control; mA and/or kV adjustment per patient size (includes targeted exa ms where dose is matched to clinical indication); or iterative reconstruction.
[2021-10-29] MEDS: Barium Sulfate 2% W/V-Creamy Vanilla Smoothie 450 ML BTL PO ×2 (12:40→12:41)
== END ==
PROVIDERS: PCP Student in an Organized Health Care Education/Training Program; Visit Provider Student in an Organized Health Care Education/Training Program
DX: D73.89 Other diseases of spleen (principal); R10.31 Right lower quadrant pain; R10.32 Left lower quadrant pain; R60.0 Localized edema; K44.9 Diaphragmatic hernia without obstruction or gangrene; Z90.710 Acquired absence of both cervix and uterus
CPT/HCPCS: 74176

== ENCOUNTER → 2021-11-23 01:07 | Outpatient (CLI) | payer MEDICARE, SELFPAY ==
--- NOTE | 2021-11-23 07:15 | DI.RAD_ITS ---
Exam(s) XR HIP PELVIS ADULT BL EXAM: XR HIP PELVIS ADULT BL CLINICAL HISTORY: bilateral groin pain - known B hip OA.COMPARE TO XR FROM 2020,M16.9. TECHNIQUE: 2D digital imaging was performed. COMPARISON: CR XR PELVIS AP from 11/08/2019 FINDINGS: 3 views No evidence of pelvic hip fracture. There are advanced osteoarthritic degenerative changes in both hips with significant bilateral hip layton int space narrowing, significantly progressed when compared to 2 years ago (11/08/2019). Sclerotic d ensity in femoral heads bilaterally may indicate an element of avascular necrosis bilaterally. There is, however, no loss of height of the femoral heads. Visualized SI joints unremarkable. IMPRESSION: Significant progression of osteoarthritic degenerative change in both hips when compared to 0. DATA REPOSITORY: RADIATION DOSE DELIVERED:
== END ==
PROVIDERS: PCP Student in an Organized Health Care Education/Training Program; Visit Provider Preventive Medicine Occupational Medicine
DX: M16.0 Bilateral primary osteoarthritis of hip (principal)
CPT/HCPCS: 73521

== ENCOUNTER 2021-11-29 03:59 | Outpatient (CLI) | payer MEDICARE, SELFPAY ==
[2021-11-29 11:02] LABS: HCT 35.6 % (36.0-46.0); HGB 11.7 g/dL (11.2-15.7); MCH 30.4 pg (27.0-33.0); MCHC 32.9 % (32.0-36.0); MCV 93 fL (80-95); MPV 8.5 fL (8.0-11.0); Platelet Count 262 10^3/uL (130-400); RBC 3.85 10^6/uL (3.93-5.22); RDW 12.8 % (11.7-14.6); RDW-SD 43.2 fL; WBC 8.57 10^3/uL (4.4-10.8)
[2021-11-29 11:55] LABS: ALT 28 U/L (14-59); AST 19 U/L (15-37); Albumin 3.7 g/dL (3.4-5.0); Alkaline Phosphatase 73 U/L (46-116); Anion Gap 7.8 mmol/L (3-11); BUN 22 mg/dL (7-18); Bilirubin, Total 0.4 mg/dL (0.2-1.0); CO2 33.2 mmol/L (21.0-32.0); CREATININE 1.6 mg/dL (0.55-1.02); Calcium 9.6 mg/dL (8.5-10.1); Chloride 100 mmol/L (98-107); Estimated GFR 31.34 (mL/min/1.73m2); Glucose 99 mg/dL (74-106); Sodium 141 mmol/L (136-145); Total Protein 7.6 g/dL (6.4-8.2)
== END 2021-11-29 04:00 | disposition home or self-care (01) ==
LOC: LBO 03:59
PROVIDERS: PCP Student in an Organized Health Care Education/Training Program; Visit Provider Student in an Organized Health Care Education/Training Program
DX: D64.9 Anemia, unspecified (principal); R18.8 Other ascites; N17.9 Acute kidney failure, unspecified; N18.2 Chronic kidney disease, stage 2 (mild); R53.1 Weakness
CPT/HCPCS: 36415; 80053; 85027

== ENCOUNTER → 2021-12-02 10:45 | Outpatient (BNVA) | payer MEDICARE, SELFPAY | PROVIDERS: PCP Student in an Organized Health Care Education/Training Program; Referring Provider Student in an Organized Health Care Education/Training Program; Visit Provider Student in an Organized Health Care Education/Training Program | DX: M16.11 Unilateral primary osteoarthritis, right hip (principal); M16.12 Unilateral primary osteoarthritis, left hip; M25.561 Pain in right knee; M25.562 Pain in left knee | CPT/HCPCS: 99215 ==

== ENCOUNTER → 2021-12-14 00:59 | Outpatient (CLI) | payer MEDICARE, SELFPAY ==
--- NOTE | 2021-12-14 08:00 | DI.MRI_ITS ---
Exam(s) MR PELVIS WO EXAM: MR PELVIS WO CLINICAL HISTORY: eval inguinal ligament tenderness (becomes hard),PELVIC SOMATIC DYSFUNCTI TECHNIQUE: Multiplanar multisequence MRI of Pelvis was performed COMPARISON: CR XR HIP PELVIS ADULT BL from 11/23/2021 FINDINGS: Bones: There is no fracture or contusion pattern. No bone marrow edema is seen. The SI joints and s ymphysis pubis are well maintained. There is a small amount of fluid lateral to both greater trochan ters. Hip joints: Both hip joints show complete loss of the joint space, subchondral edema and bony hypertr ophy. Small bilateral joint effusions are seen in the hips. There are no findings to suggest an occ ult fracture. There is linear hypointense signal seen along subchondral bone in the superior aspects of both femoral heads raising the question of avascular necrosis. There is also loss of volume of t he superior aspects of the femoral heads. There is also moderate edema (right greater than left) kirsten ng the acetabular component of the joint spaces. Musculotendinous structures: Musculotendinous structures demonstrate no abnormality. Intrapelvic str uctures demonstrate no significant abnormality. Soft tissues: Note is made of diverticulosis in the sigmoid colon. There is no evidence of an inguin al hernia. No significant inguinal adenopathy is present. The patient is status post hysterectomy. IMPRESSION: 1. Findings of marked osteoarthritis of the hips bilaterally. Findings raising the question of bilat eral hip avascular necrosis. 2. No evidence of an inguinal hernia or inguinal adenopathy. 3. Small amount of fluid lateral to both greater trochanters which may represent bursitis. DATA REPOSITORY:
== END ==
PROVIDERS: PCP Student in an Organized Health Care Education/Training Program; Visit Provider Student in an Organized Health Care Education/Training Program
DX: M99.05 Segmental and somatic dysfunction of pelvic region (principal); R10.31 Right lower quadrant pain; R10.32 Left lower quadrant pain; M16.0 Bilateral primary osteoarthritis of hip
CPT/HCPCS: 72195

== ENCOUNTER 2021-12-24 15:36 | Outpatient (CLI) | payer MEDICARE, SELFPAY ==
--- NOTE | 2021-12-24 15:30 | RT.EKG_ITS ---
APPROVED REPORT Exam: Resting ECG Reason for Exam: pre-op for upcoming bilateral hip replacements Patient Location: O HR:85 bpm ECG Measurements Heart Rate 85 AXIS NM 149 P 41 QRSd 103 QRS 39 QT 393 T 34 QTc 468 Conclusion Sinus rhythm...normal P axis, V-rate 50- 99 Normal Electrocardiogram
== END 2021-12-24 15:37 | disposition home or self-care (01) ==
LOC: DI.KIM 15:37
PROVIDERS: PCP Student in an Organized Health Care Education/Training Program; Visit Provider Student in an Organized Health Care Education/Training Program
DX: Z01.818 Encounter for other preprocedural examination (principal)
CPT/HCPCS: 93010

== ENCOUNTER 2021-12-28 01:31 | Outpatient (CLI) | payer MEDICARE, SELFPAY ==
[2021-12-28 14:16] LABS: Abs Immature Grans 0.02 10^3/uL (0.0-0.06); Absolute Basophil Count 0.04 10^3/uL (0.0-0.2); Absolute Eosinophil Count 0.26 10^3/uL (0.0-0.7); Absolute Lymphocyte Count 3.46 10^3/uL (1.2-3.4); Absolute Neutrophil Count 4.72 10^3/uL (1.2-6.7); Basophils % 0.4; Eosinophils % 2.8; HCT 36.4 % (36.0-46.0); HGB 11.5 g/dL (11.2-15.7); Immature Grans % 0.2; Lymphocytes % 36.8; MCH 29.6 pg (27.0-33.0); MCHC 31.6 % (32.0-36.0); MCV 94 fL (80-95); MPV 8.8 fL (8.0-11.0); Monocytes % 9.6; Neutrophils % 50.2; Platelet Count 301 10^3/uL (130-400); RBC 3.89 10^6/uL (3.93-5.22); RDW 13.2 % (11.7-14.6); RDW-SD 45.2 fL
[2021-12-28 14:59] LABS: ALT 25 U/L (14-59); AST 17 U/L (15-37); Albumin 3.7 g/dL (3.4-5.0); Alkaline Phosphatase 76 U/L (46-116); Anion Gap 3.7 mmol/L (3-11); BUN 21 mg/dL (7-18); Bilirubin, Total 0.3 mg/dL (0.2-1.0); CO2 36.3 mmol/L (21.0-32.0); CREATININE 1.6 mg/dL (0.55-1.02); Calcium 9.9 mg/dL (8.5-10.1); Chloride 101 mmol/L (98-107); Estimated GFR 33.22 (mL/min/1.73m2); Glucose 117 mg/dL (74-106); Magnesium 2.1 mg/dL (1.8-2.4); Potassium 3.9 mmol/L (3.5-5.1); Sodium 141 mmol/L (136-145); Total Protein 7.6 g/dL (6.4-8.2)
[2021-12-28 15:04] LABS: Albumin 3.8 g/dL (3.4-5.0); BUN 21 mg/dL (7-18); CREATININE 1.5 mg/dL (0.55-1.02); Calcium 9.9 mg/dL (8.5-10.1); Chloride 101 mmol/L (98-107); Estimated GFR 35.89 (mL/min/1.73m2); Glucose 115 mg/dL (74-106); NT-proBNP 346 pg/mL (<300); PHOSPHORUS 3.9 mg/dL (2.6-4.7); Potassium 3.8 mmol/L (3.5-5.1); Sodium 142 mmol/L (136-145)
== END 2021-12-28 01:32 | disposition home or self-care (01) ==
LOC: LBO 01:31
PROVIDERS: Internal Medicine Interventional Cardiology; PCP Student in an Organized Health Care Education/Training Program; Visit Provider Student in an Organized Health Care Education/Training Program
DX: K29.70 Gastritis, unspecified, without bleeding (principal); N28.9 Disorder of kidney and ureter, unspecified; Z86.2 Personal history of diseases of the blood and blood-forming organs and certain disorders involving the immune mechanism; I50.9 Heart failure, unspecified; N17.9 Acute kidney failure, unspecified; N18.2 Chronic kidney disease, stage 2 (mild); Z91.89 Other specified personal risk factors, not elsewhere classified; I51.9 Heart disease, unspecified
CPT/HCPCS: 36415; 80053; 80069; 83735; 83880; 85025

== ENCOUNTER 2022-01-06 04:08 | Outpatient (CLI) | payer MEDICARE, SELFPAY ==
[2022-01-06 14:10] LABS: HCT 35.7 % (36.0-46.0); HGB 11.7 g/dL (11.2-15.7); MCH 30.2 pg (27.0-33.0); MCHC 32.8 % (32.0-36.0); MCV 92 fL (80-95); MPV 8.7 fL (8.0-11.0); Platelet Count 311 10^3/uL (130-400); RBC 3.87 10^6/uL (3.93-5.22); RDW 13.2 % (11.7-14.6); RDW-SD 44.8 fL; WBC 9.79 10^3/uL (4.4-10.8)
[2022-01-06 14:34] LABS: Anion Gap 6.2 mmol/L (3-11); BUN 15 mg/dL (7-18); CO2 33.8 mmol/L (21.0-32.0); CREATININE 1.4 mg/dL (0.55-1.02); Calcium 9.8 mg/dL (8.5-10.1); Chloride 101 mmol/L (98-107); Estimated GFR 38.99 (mL/min/1.73m2); Glucose 94 mg/dL (74-106); Potassium 3.7 mmol/L (3.5-5.1); Sodium 141 mmol/L (136-145)
== END 2022-01-06 04:09 | disposition home or self-care (01) ==
LOC: LBO 04:08
PROVIDERS: PCP Student in an Organized Health Care Education/Training Program; Visit Provider Student in an Organized Health Care Education/Training Program
DX: M16.0 Bilateral primary osteoarthritis of hip (principal); Z01.818 Encounter for other preprocedural examination
CPT/HCPCS: 36415; 80048; 85027; 86850; 86900; 86901

== ENCOUNTER 2022-01-14 10:12 | Inpatient (IN) | payer MEDICARE, SELFPAY ==
[2022-01-14] VITALS (13 sets, daily range): BP systolic 105–130; BP diastolic 43–90; PULSE 53–91; RESP 10–20; TEMP 35–36.6; O2SAT 94–100; BMI 41.1
--- NOTE | 2022-01-14 10:42 | W.ANESPRE ---
General Info Date of Service Date Performed: 01/14/22 Height: 5 ft 4 in Weight: 108.862 kg Body Mass Index (BMI): 41.1 Surgical Procedure: Operation Date: 01/14/22 12:15 Proposed Procedure Side Surgeon p Hip Total Hip Anterior Bilateral Bilateral Guanako Bartholomew MD Meds Allergies and Home Medications Allergies Allergy/AdvReac Type Severity Reaction Status Date / Time codeine Allergy Severe Anaphylaxsi Verified 01/14/22 11:00 s morphine Allergy Severe Anaphylaxsi Verified 01/14/22 11:00 s oxycodone Allergy Severe Anaphylaxsi Verified 01/14/22 11:00 s amoxicillin [From Augmentin] AdvReac Intermediate Hives Verified 01/14/22 11:00 Swelling budesonide AdvReac Intermediate thrush Verified 01/14/22 11:00 clavulanic acid AdvReac Intermediate Hives Verified 01/14/22 11:00 [From Augmentin] Swelling lisinopril AdvReac Intermediate cough Verified 01/14/22 11:00 pentazocine AdvReac Intermediate elevated Verified 01/14/22 11:00 LFT's diphenhydramine AdvReac Mild Benadryl Verified 01/14/22 11:00 [From Benadryl] and Tylenol PM poorly tolerated, wound up. fluconazole AdvReac Mild Nausea Verified 01/14/22 11:00 prednisone AdvReac Mild flu like Verified 01/14/22 11:00 illness varenicline AdvReac Mild I got Verified 01/14/22 11:00 ugly Home Medication Medication Instructions Recorded cholecalciferol (vitamin D3) 50 2,000 unit PO DAILY 07/01/15 mcg (2,000 unit) capsule (Vitamin D3) meclizine 25 mg tablet 12.5 - 25 mg PO TID PRN dizziness 06/16/20 #30 tabs nitroglycerin 0.4 mg sublingual 0.4 mg sublingual Q5M PRN chest 12/12/20 tablet pain #30 tabs halobetasol propionate 0.05 % 1 applic topical BID #50 grams 01/05/21 topical ointment tiotropium 2.5 mcg-olodaterol 2.5 2 puff inhalation DAILY #4 grams 07/12/21 mcg/actuation mist for inhalation (Stiolto Respimat) ammonium lactate 12 % topical cream 1 applic topical BID #385 grams 07/15/21 spironolactone 25 mg tablet 25 mg PO DAILY #30 tabs 09/03/21 docusate sodium 100 mg capsule 100 mg PO BID 09/15/21 (Colace) polyethylene glycol 3350 17 17 g PO BID PRN constipation #510 09/15/21 gram/dose oral powder (Miralax) grams losartan 100 mg tablet 100 mg PO DAILY 09/24/21 sertraline 50 mg tablet 50 mg PO QHS #90 tabs 09/24/21 gabapentin 600 mg tablet 600 mg PO DAILY 10/25/21 vitamin B complex (B 1 tab PO DAILY 10/26/21 Complex-Vitamin B12 tablet) isosorbide mononitrate 30 mg 60 mg PO DAILY #180 tab-caps 10/27/21 tablet,extended release 24 hr levothyroxine 75 mcg tablet 75 mcg PO DAILY #90 tabs 10/27/21 ropinirole 2 mg tablet 2 mg PO QHS #90 tabs 10/28/21 pantoprazole 40 mg tablet,delayed 40 mg PO BID #60 tabs 10/29/21 release sucralfate 100 mg/mL oral 10 ml PO QACHS #420 mL 10/29/21 suspension torsemide 20 mg tablet 40 mg PO DAILY #180 tabs 11/03/21 cyclobenzaprine 10 mg tablet 10 mg PO HS #20 tabs 11/15/21 hydrocodone 5 mg-acetaminophen 325 1 tab PO Q6H PRN severe pain 12/16/21 mg tablet (scale score 7-10) #30 tabs fluorometholone 0.1 % eye 1 drp ophthalmic (eye) BID 01/14/22 drops,suspension Current Visit Medications: Current Medications Generic Name Dose Route Start Last Admin Trade Name Freq PRN Reason Stop Dose Admin Acetaminophen 1,000 mg 01/14/22 06:00 Acetaminophen 500 Mg Tab PO 01/14/22 18:00 PREOP GISELLA Celecoxib 400 mg 01/14/22 06:00 Celecoxib 200 Mg Cap PO 01/14/22 18:00 PREOP GISELLA Tranexamic Acid 1,000 mg/ 60 mls @ 360 mls/hr 01/14/22 06:00 Sodium Chloride IV 01/14/22 18:00 PREOP GISELLA Tranexamic Acid 1,000 mg/ 60 mls @ 360 mls/hr 01/13/22 06:00 Sodium Chloride IV 01/14/22 18:00 DIRECTED GISELLA Ringer's Solution 1,000 mls @ 80 mls/hr 01/14/22 06:00 IV 02/12/22 23:59 INFUSION GISELLA Cefazolin Sodium 3,000 mg/ 100 mls @ 200 mls/hr 01/14/22 06:00 Sodium Chloride IVPB 01/14/22 16:00 PREOP GISELLA IV Miscellaneous Supplies 1 each 01/14/22 06:00 Iv Access IV 02/12/22 23:59 DIRECTED GISELLA Sodium Chloride 0 ml 01/14/22 06:00 Normal Saline Flush 10 Ml Syr IV 02/12/22 23:59 PRN PRN Sodium Chloride 0 ml 01/14/22 06:00 Normal Saline 10 Ml Vial IJ 02/12/22 23:59 DIRECTED PRN Sterile Water 0 ml 01/14/22 06:00 Water,Injection,Sterile 10 Ml Vial IJ 02/12/22 23:59 DIRECTED PRN PFSH Active Problems Active Problems: Problem Status Onset Code Avascular necrosis of bone of hip M87.059 Adult BMI 40.0-44.9 kg/sq m Z68.41 Bilateral groin pain R10.31, R10.32 Hip osteoarthritis M16.9 Sacroiliac dysfunction M53.3 Displacement of lumbar intervertebral disc M51.26 Lumbar stenosis M48.061 Pelvic somatic dysfunction M99.05 Pelvic floor dysfunction M62.89 Back pain M54.9 Weakness R53.1 Bilateral edema of lower extremity R60.0 Adult failure to thrive R62.7 Chronic pain of both lower extremities M79.604, M79.605, G89.29 Breath shortness R06.02 CHF (congestive heart failure) I50.9 Edema due to congestive heart failure I50.9 Nodule of spleen D73.89 Dyspnea on exertion R06.00 Coronary artery disease involving [place] coronary artery of [place] heart without angina pectoris I25.10 Hypoxia R09.02 Bilateral groin pain R10.31, R10.32 JOSTIN (acute kidney injury) N17.9 Chronic renal insufficiency, stage II (mild) N18.2 Hiatal hernia K44.9 Osteoarthritis of hips, bilateral 06/03/[address] R93.89 Lung nodule < 6cm on CT R91.1 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 Achilles tendonitis Left, with plantar fasciitis Acute nonintractable headache Anterior epistaxis BPPV (benign paroxysmal positional vertigo) Chronic antral gastritis Chronic pain Diastolic dysfunction New Cardio disagrees, 09/2021. Per Cardio ([facility]), 09/2018 ... June 29, 2010: LVEDP 23 mm mercury. January 31, 2000. LVEDP 7 mm mercury, rising to 21 mm mercury after 1 L normal saline over 10 minutes. Wedge pressure 19 mm mercury .. mild pulmonary hypertension on right heart catheterization (40-45 MmHG). Hx recurrent pericarditis/ pericardial effusion, Sjogren's syndrome. Dysphagia Edema of thigh resolved with [facility] admission/care Fatigue severe, sudden onset, napped x hours this week (2' fluconazole?) Femoroacetabular impingement of both hips Former smoker Quit 05/2009 Herpes simplex Hip effusion, right Aspirated, Ortho, 06/2021 Hyperlipidemia (07/23/12) Hx declining statin? Increased BMI (body mass index) (05/11/17) [place] [facility]21 note Left carpal tunnel syndrome Lichen sclerosus et atrophicus Halbetasol per [facility], 01/2021. (2019. Patient advised to begin topical steroid to vulva) Lipoma of left upper extremity Localized osteoarthritis of right knee Low back pain Neoplasm of uncertain behavior of skin (05/15/14) Left forehead, status post excision with primary closure. Seborrheic keratosis by final pathology. 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 [facility] ([facility]) shows borderline/normal results. 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 Perez on 01/06/20 Posterior tibial tendon dysfunction, left Restless leg syndrome Screening mammography declined 12/2020 EO Severe obstructive sleep apnea 06/13/21 Sleep study note Severe right groin pain x 2 weeks, with Hx low grade discomfort x months. Hx UrSling. Rt thigh pain described. Shortness of breath Sialoadenitis (10/31/13) Skin lesion of neck Snoring Stopped smoking with greater than 40 pack year history Strain of muscle of right groin region Tobacco dependence Unilateral primary osteoarthritis, left knee Surgical History Surgical History Abdominal hysterectomy ENDOMETRIOSIS; ONE OVARY REMAINS Colonoscopy - IV Sedation (04/25/16) History of ankle surgery hardware present History of arthroplasty of finger of left hand History of bunionectomy of both great toes History of carpal tunnel surgery of left wrist History of colpocleisis History of suburethral sling procedure 12/18/18 Vaginectomy/colpocleisis with Posterior colporrhapy and transobturator [place] [facility] [place]x of appendectomy Hx of thumb surgery Prolapse of female pelvic organs Stage III post hysterectomy vaginal prolapse with stress incontinence. [place] [facility] [place]. Status post abdominal hysterectomy Status post tonsillectomy 2018? Tonsillectomy Tobacco Smoking/Tobacco Use Status: Former Tobacco Use Passive smoking exposure: No Alcohol Alcohol Intake: current Alcohol intake frequency: holidays/special occasions only Alcohol type: beer and wine Substance Use Substance use: Never Substance use type: does not use Counseling provided: other Prental History History 3 Para Hx # Term Pregnancies 3 Multiple births Hx # Pregnancies Ectopic pregnancies AB induced Hx Number of Living Children AB spontaneous Vital Signs and Lab Results Vital Signs Most Recent Vital Signs in EMR: Temp Pulse Resp BP Pulse Ox 36.6 C 91 H 18 118/57 L 97 01/14/22 10:22 01/14/22 10:22 01/14/22 10:22 01/14/22 10:22 01/14/22 10:22 Lab Results Blood Type / Crossmatch: Patient ABO/Rh O Negative 01/06/22 Antibody Screen NEGATIVE 01/06/22 Complete Blood Count: White Blood Count 9.79 10^3/uL (4.4-10.8) 01/06/22 13:55 Red Blood Count 3.87 10^6/uL (3.93-5.22) L 01/06/22 13:55 Hemoglobin 11.7 g/dL (11.2-15.7) 01/06/22 13:55 Hematocrit 35.7 % (36.0-46.0) L 01/06/22 13:55 Platelet Count 311 10^3/uL (130-400) 01/06/22 13:55 Complete Metabolic Panel: Sodium Level 141 mmol/L (136-145) 01/06/22 13:55 Potassium Level 3.7 mmol/L (3.5-5.1) 01/06/22 13:55 Chloride Level 101 mmol/L (98-107) 01/06/22 13:55 Carbon Dioxide Level 33.8 mmol/L (21.0-32.0) H 01/06/22 13:55 Blood Urea Nitrogen 15 mg/dL (7-18) 01/06/22 13:55 Creatinine 1.4 mg/dL (0.55-1.02) H 01/06/22 13:55 Magnesium Level 2.1 mg/dL (1.8-2.4) 12/28/21 13:45 Calcium Level 9.8 mg/dL (8.5-10.1) 01/06/22 13:55 Albumin 3.7 g/dL (3.4-5.0) 12/28/21 13:45 Glucose Level 94 mg/dL (74-106) 01/06/22 13:55 Liver Function Panel: Alanine Aminotransferase (ALT/SGPT) 25 U/L (14-59) 12/28/21 13:45 Aspartate Amino Transf (AST/SGOT) 17 U/L (15-37) 12/28/21 13:45 Coagulation Panel: No Data to Display Cardiac Panel: [id number]-Vnx-N-Type Natriuretic Peptide 346 pg/mL (<300) H 12/28/21 Arterial Blood Gas: No Data to Display Venous Blood Gas: No Data to Display Pancreas Panel: No Data to Display Thyroid Panel: No Data to Display Infectious Disease: Coronavirus 2019 Source Nasal/Nares 01/14/22 11:35 Blood Cultures: No Data to Display Toxicology Panel: No Data to Display Imaging and Studies Imaging and Studies Study information below may be from another EMR and interpreted by another provider. Please see original notes in EMR for more complete details. EKG Summary: Conclusion Sinus rhythm...normal P axis, V-rate 50- 99 Normal Electrocardiogram 12/24/21 Stress Test Summary: Stress results: STRESS TEST ENDED IN 4 MINUTES 52 SECONDS DUE TO FATIGUE. NORMAL HEART RATE AND BLOOD PRESSURE RESPONSE TO EXERCISE. MAX HEART RATE: 135. 91 % OF TARGET HEART RATE ACHIEVED. MET'S: 6.87. RARE PAC'S IN RECOVERY. HORIZONTAL ST SEGMENT DEPRESSIONS IN LEADS V4, V5 AND V6 AT 4 MINUTES 49 SECONDS OF EXERCISE, BECOMING DOWNWARD SLOPING AT 2 MIN[address]ES [address] SEGMENT DEPRESSIONS RETURN TO BASELINE AT 10 MINUTES 1 SECOND OF RECOVERY. CHEST PRESSURE 6/10 AT PEAK EXERCISE. CHEST PRESSURE 3/10 AT 1 MINUTE OF RECOVERY. CHEST PRESSURE SUBSIDED BY 6 MINUTES OF RECOVERY. FUNCTIONAL CAPACITY: AVERAGE CAPACITY. Maximal heart rate during stress was 135bpm (91% of maximal predicted heart rate). The maximal predicted heart rate was 148bpm. The target heart rate was achieved. The heart rate response to stress is normal. There is resting hypertension with an appropriate response to stress. The rate-pressure product for the peak heart rate and blood pressure was 46599qs Hg/min. Stress-induced chest pain which resolved spontaneously. Exercise capacity is average for age. Stress ECG: The stress ECG is positive. The stress ECG is indeterminate due to baseline ST/T wave abnormality. Stress ECG change: horizontal depression. Severity: 2.0-3.0mm. In lead groups: II, III, aVF and V3 - V6. Myocardial perfusion: Imaging information: gated. Image quality reduced due to breast attenuation. Left ventricular size is normal. There is a moderate sized, moderately intense, fully reversible defect involving the anterior wall(s). Since this defect resolves completely with attenuation correction and the wall motion is normal this is consistent with breast artifact rather than ischemia. Ventricular Function (Wall Motion): The calculated left ventricular ejection fraction after stress: 61%. LV global systolic function is normal. No left ventricular regional motion abnormality. 07/04/18 Echocardiogram Summary: Conclusion Normal left ventricular wall thickness and chamber size. Estimated ejection fraction is 60%. Wall motion is normal Normal right ventricular size and systolic function The left atrium is mildly dilated. The right atrium is normal in size Normal aortic valve without stenosis or regurgitation Normal mitral valve with mild regurgitation Normal tricuspid valve, trace regurgitation. Right ventricular systolic pressure could not be estimated 09/10/21 Pulmonary Function Summary: Impression Possible mild restrictive lung disease with decreased muscle pressures and a reduced diffusion. Note: When compared to 02/23/2012 the total lung capacity is reduced and the diffusion is reduced. Clinical Correlation therefore is recommended. 02/19/21 Anesthesia Assessment and Plan Anesthesia History Personal History: No History of Anesthesia Complications Family History: No Family History of Anesthesia Complications Exercise Tolerance Exercise Tolerance: Metabolic Equivalents<4 Pertinent Negatives Pertinent Negatives: No Major Cardiovascular Symptoms or Complaints, No Major Pulmonary Symptoms or Complaints, No History of CVA/TIA and Other (Occ GERD, no recent chest pain. ) Cardiac & Pulmonary Exam Cardiac Exam: Normal S1/S2 Heart Sounds Pulmonary Exam: Clear Bilateral Breath Sounds Cardiac and Pulmonary Comment:: [place] [facility] [place]24[place], note in system Implantable Cardiac Device Does patient have a Pacemaker or an ICD?: No Airway Exam Known Difficult Airway: No Mallampati Class: 2 Mouth Opening: Normal (> 3cm) Thyromental Distance: Greater than 3 cm Neck Range of Motion: Full ROM Neck Circumference: Thick Teeth Condition: Removable Dentures/Plates Upper and Edentulous ASA Classification ASA Score: ASA 3 Emergency Case?: No NPO Status NPO Status: NPO Clears >2 hours, Solids >8 hours Anesthesia Plan Resuscitation Status: Full Code Anesthesia Technique: Spinal Anesthesia Airway Planned: Natural Airway Monitors Used: Standard Monitors Preoperative Comments:: MRI spine 07/2021 MPRESSION: 1. Multilevel degenerative changes in the lumbar spine resulting in central spinal canal neural foraminal stenosis as described above. 2. Left paracentral disc herniation with extrusion posterior to the L4 vertebral body causing left lateral recess stenosis with compression of the left L4 nerve root. 3. Small right-sided L1-L2 disc herniation with extrusion posterior to L2. Patient is requesting spinal. Will attempt at L2-3 or L3-4 to avoid stenotic areas. If technically difficult will proceed to General ETT.
[2022-01-14 11:47] LABS: Source Nasal/Nares
[2022-01-14] MEDS: Acetaminophen 500 MG TAB 1000 MG PO (11:54)
[2022-01-14] MEDS: Celecoxib 200 MG CAP 400 MG PO (11:54)
[2022-01-14] MEDS: Lactated Ringers 1,000 ML 80 ML IV ×2 (12:07→22:26)
--- NOTE | 2022-01-14 12:08 | DSE_ITS ---
Date of service: 01/17/22 Time of Service: 12:10 DS: Diagnosis Discharge Diagnosis (1) Avascular necrosis of bone of hip: Status: Acute Discharge Plan Disposition Patient Disposition: HOME W/HOME HEALTH SERVICE Condition: Good Discharge Details Reason For Visit: Bilateral hip DJD Admit Date/Time: 01/14/22 10:12 Admit Provider: Guanako Bartholomew Attending Provider: Guanako Bartholomew Primary Care Provider: Mariajose Cuenca Hospital Course Hospital Course: Patient was admitted to the medical/surgical floor following the procedure. The surgery was tolerated well without any notable medical, surgical, or anesthetic complications. Mobilization began postoperatively. She was voiding spontaneously. Vitals were stable. Physical therapy worked with the patient and was cleared for discharge home. Labs did show some acute postoperative blood loss anemia which was stable at 9-9.3. She also had an acute worsening of her kidney function with a creatinine up to 2.2 back down to 1.9 on the day of discharge which was within the range of her normal values. No other acute medical issues. Pain was controlled on oral regimen. Home Meds and New Rx's Prescriptions: New celecoxib 200 mg capsule 200 mg PO DAILY Qty: 30 1RF acetaminophen 500 mg tablet 500 mg PO Q6H PRN PRN (Reason: pain) Qty: 40 3RF rivaroxaban 10 mg tablet 10 mg PO QPM Qty: 30 0RF Continued nitroglycerin 0.4 mg tablet, sublingual 0.4 mg sublingual Q5M PRN (Reason: chest pain) Qty: 30 1RF Rx Instructions: do not exceed 3 doses per episode halobetasol propionate 0.05 % ointment 1 applic topical BID Qty: 50 4RF Rx Instructions: apply tiny amount to vulvar bid for 2weeks then daily for 2weeks then twice weekly ammonium lactate 12 % cream 1 applic topical BID Qty: 385 1RF Rx Instructions: Trial for dry skin, edema Stiolto Respimat 2.5-2.5 mcg/actuation mist 2 puff inhalation DAILY Qty: 4 5RF spironolactone 25 mg tablet 25 mg PO DAILY Qty: 30 0RF Rx Instructions: Trial for severe edema losartan 100 mg tablet 100 mg PO DAILY Rx Instructions: 09/23/21 started sertraline 50 mg tablet 50 mg PO QHS Qty: 90 3RF Rx Instructions: start with half-tab for 3 days, then increase to 1tab (50mg) daily. vitamin B complex [B Complex-Vitamin B12] Tablet 1 tab PO DAILY levothyroxine 75 mcg tablet 75 mcg PO DAILY Qty: 90 1RF isosorbide mononitrate 30 mg tablet extended release 24 hr 60 mg PO DAILY Qty: 180 3RF cholecalciferol (vitamin D3) [Vitamin D3] 2,000 UNIT capsule 2,000 unit PO DAILY Label Comments: 01/18/17-now takes 5000U/pps meclizine 25 mg tablet 12.5 - 25 mg PO TID PRN (Reason: dizziness) Qty: 30 4RF docusate sodium [Colace] 100 mg capsule 100 mg PO BID polyethylene glycol 3350 [Miralax] 17 gram/dose powder 17 g PO BID PRN (Reason: constipation) Qty: 510 0RF ropinirole 2 mg tablet 2 mg PO QHS Qty: 90 3RF Rx Instructions: administer 1-3 hours before bedtime sucralfate 100 mg/mL suspension 10 ml PO QACHS Qty: 420 1RF Rx Instructions: Continue for break-through reflux pantoprazole 40 mg tablet,delayed release (DR/EC) 40 mg PO BID Qty: 60 2RF torsemide 20 mg tablet 40 mg PO DAILY MDD 60mg Qty: 180 3RF fluorometholone 0.1 % drops,suspension 1 drp ophthalmic (eye) BID Label Comments: INSTILL 1 DROP INTO BOTH EYES TWICE A DAY DIRECTED FOR 2 WEEKS THEN STOP Changed gabapentin 600 mg tablet 600 mg PO HS Qty: 0 0RF hydrocodone-acetaminophen 5-325 mg tablet 1 tab PO Q4H PRN MDD 15mg hydrocodone PRN (Reason: severe pain (scale score 7-10)) Qty: 30 0RF Rx Instructions: Severe pelvic/back pain, awaiting ortho/PT. Discontinued cyclobenzaprine 10 mg tablet 10 mg PO HS MDD 10mg Qty: 20 2RF Rx Instructions: Continue for pelvic mm spasms; use with caution. Discharge Instructions Additional Instructions: Total Hip Discharge Instructions Activity: The most important activity is to walk. You should try to take short walks a few times a day. You have no restrictions on movement or positioning, but do not try to force what you do. You will find some stiffness and weakness with hip flexion (lifting your knee). Do not try to strengthen this too early, continue to practice walking and stairs and this will come. - Home Health physical therapy will be ordered to help return you to a normal gait and improve your strength. - You should wear the JANETT hose on both legs for 2 weeks. Dressing: Keep the surgical dressing in place for at least one week. After the first week it may be removed and replace with light gauze and tape or nothing. It may get wet after 3 days but avoid soaking the dressing. If it gets wet, just lightly pat dry. It is important to always keep some gauze between skin folds, especially when you are sitting. Spend some time with the wound exposed when you are lying flat as the incision does wrinkle onto itself. Medications: - You should take Tylenol and an anti-inflammatory Celebrex as your primary pain control medications. If the Celebrex is too expensive or not covered, please call the office for another alternative (Advil/Ibuprofen or Naproxen/Aleve). - You have been prescribed a stronger pain medication Hydrocodone for breakthrough pain, take as needed as prescribed. - You will continue your stomach acid reduction agent Pantoprozole to help reduce stomach acid and reflux. - You will be taking Rivaroxaban 10mg daily for DVT prevention unless instructed otherwise. - If you have constipation you should take Colace (which was prescribed) or Miralax (which is [id number]). It takes most people 3-4 days to have a bowel movement. Follow-up: 2 weeks If you have any acute concerns or questions, please do not hesitate to contact the office at [phone]. You may contact Dr. Bartholomew with any questions after hours through the hospital at [phone] or on his cell phone at [phone]. 1. Encounter Date and Reason I certify that Fe Ibanez was seen by Guanako Bartholomew MD on 01/17/22 and that I had a [id number] encounter with this patient that meets the physician face to face encounter requirements. 2. Clinical Findings Supporting Skilled Need and Homebound Status I certify that home health services are medically necessary, include either intermittent custodial and/or physical/speech therapy, and that this patient is homebound in that absences from the home require considerable and taxing effort and are infrequent or of short duration, or are attributable to the need to receive medical care. [X] (a) Attached documentation from encounter provides clinical findings supporting skilled need and homebound status (including what assistance patient requires to leave the home). The encounter with the patient was in whole, or in part, for the following medical condition, which is the primary reason for home health care: Bilateral hip DJD Residential: Physical Therapy: Fe will benefit from HHPT to recover from bilateral hip replacements with associated gait abnormalities and weakness. She has no positioning requirements and is WBAT. Speech Therapy: Homebound: Fe is unable to leave her home unassisted due to recent surgery, gait abnormalities, and weakness. 3. Certification and Authentication I certify that I composed the above information based on my clinical judgement relating to this patient's medical condition and, if applicable, clinical findings communicated to me by the NPP or inpatient physician who performed the Home Health Referral. All further orders will be obtained through Dr. Bartholomew Referrals: Guanako Bartholomew MD [ [facility] STAFF PHYSICIAN] - Activity:: Activity as Tolerated Equipment/Supplies:: Walker Diet:: As Tolerated Discharge Orders Discharge Orders: Discharge Order (Routine); Ordered 01/17/22 Ordered By: Guanako Bartholomew DS: Summary Time Spent with Patient providing and/or coordinating discharge services: Less than 30 minutes Status at Discharge Functional status at discharge: uses cane/walker Overall status at discharge: patient is progressing back to baseline Mental Status: mental status grossly normal Speech and Movement: speech and movement normal Mood: congruent mood Affect: normal affect Exam Narrative Exam Narrative: Sitting up in the chair. No acute distress. Alert and orient x3. Bilateral hips show some mild ecchymosis around the incision sites but dressings are clean dry and intact. Decree sensation posterior to the incision but no decree sensation over the lateral from cutaneous nerve. She is able to actively dorsiflex and plantarflex as well as bennie both ankles as well as extend both knees. Psych Mental Status: mental status grossly normal Speech and Movement: speech and movement normal Mood: congruent mood Affect: normal affect DS: Data Vitals/I&O Vitals and I&O: Vital Signs Temperature 97.9 F 01/14/22 10:22 Pulse 91 H 01/14/22 10:22 Pulse Rhythm Regular 01/14/22 10:22 Respiratory Rate 18 01/14/22 10:22 Respiratory Depth Normal 01/14/22 10:22 Blood Pressure 118/57 L 01/14/22 10:22 Pulse Oximetry 97 01/14/22 10:22 Oxygen Delivery Method Room Air 01/14/22 10:22 Oxygen Flow Rate 0 01/14/22 10:22 Intake & Output 01/13/22 01/14/22 01/14/22 23:59 11:59 23:59 Weight 239 lb 15.994 oz Data Completed and Pending Labs on day of discharge: Labs from last 24 hours 01/14/22 11:35 COVID-19 Source Nasal/Nares SARS-CoV-2 (PCR) Pending [facility] All Active Problems Acute kidney injury superimposed on chronic kidney disease (Acute) Acute postoperative anemia due to expected blood loss (Acute) Avascular necrosis of bone of hip (Acute) s/p bilateral RACHEL (01/14/22) Adult BMI 40.0-44.9 kg/sq m (Acute) Bilateral groin pain (Acute) Inguinal Ligament Pain & Stiffness .. becomes hard, like a bone Hip osteoarthritis (Acute) Sacroiliac dysfunction (Acute) 08/23/21 [facility] Pain and spine note Displacement of lumbar intervertebral disc (Acute) 08/23/21 [facility] Pain and spine note Lumbar stenosis (Chronic) with lumbosacral radiculopathy per Pain Clinic Pelvic somatic dysfunction (Acute) Per PMR/Spine ... severe pain of SI Joint, Lower Back, Buttocks. Pelvic floor dysfunction (Acute) Presumed, [ ] P.PT Back pain (Acute) Weakness (Acute) Bilateral edema of lower extremity (Acute) Adult failure to thrive (Acute) Chronic pain of both lower extremities (Acute) Breath shortness (Acute) CHF (congestive heart failure) (Chronic) mild-mod per new cardio eval (not as severe as originally thought)(not responsible for degree of edema observed, 09/2021) Edema due to congestive heart failure (Chronic) Doubting CHF as full reason for edema (New Cardio, 09/2021).Acute on chronic, presumed CHF.. following diuresis per Dr. Perez direction, 06/2021. Nodule of spleen (Acute) Dyspnea on exertion (Acute) Coronary artery disease involving [place] coronary artery of [place] heart without angina pectoris (Acute) Bilateral groin pain (Chronic) & buttock .. see PMR note, 08/2021. JOSTIN (acute kidney injury) (Acute) Cr 1.7 vs 1.5, 09/03/21 .. complicating diuresis. Chronic renal insufficiency, stage II (mild) (Chronic) Mild-Mod CKD G3a (GFR 48, 08/2020). Hiatal hernia (Chronic) General/Bariatric Surgery on HOLD 2' CHF, Hip Pain. Widened retrocardiac hiatal hernia, 7cm x 5cm AP. Larger than 2013..Hx GERD, with possible new symptoms (12/2020). Surgery? Osteoarthritis of hips, bilateral (Acute 06/03/21) [facility] xray Abnormal chest CT (Acute) [facility] 06/03/21: Recommendations to be discussed w/ pt; 1. F/u imaging of enlarged subcarinal node 3-6mo. 2. Correlating mammography or breast u/s for breast nodules (non-emergent). 3. Dedicated imaging for indeterminate splenic lesion. 4. Repeat Chest CT Q12mo to f/u on nodules bi-lat. Lung nodule < 6cm on CT (Acute) 4mm, per 12/2020 CT (new since 2012).. 6 mo FU [ ] Shrinking lung syndrome (Acute) Restrictive lung disease (Acute) PFT, 01/2021 (Spirometry: Muscle pressures are decreased.. diffusion [capacity] reduced.. Airway resistance normal...Possible mild restrictive lung disease with decreased muscle pressures and a reduced diffusion. (compared to 02/23/2012, total lung capacity & diffusion is reduced .. Clinical Correlation (?) ik Sjogren's disease (Chronic) GERD (gastroesophageal reflux disease) (Chronic) Tubular adenoma of colon (Chronic 04/25/16) Prediabetes (Acute) A1C 5.8 Hypothyroidism (Chronic) Medical History Abnormal finding on imaging CT (Lung Ca Screen), 12/2020: Increased markings, 4mm RLL nodule, Dec volume, widened hiatal hernia. Achilles tendonitis Left, with plantar fasciitis Acute nonintractable headache Anterior epistaxis BPPV (benign paroxysmal positional vertigo) Chronic antral gastritis Chronic pain Diastolic dysfunction New Cardio disagrees, 09/2021. Per Cardio (Chris), 09/2018 ... June 29, 2010: LVEDP 23 mm mercury. January 31, 2000. LVEDP 7 mm mercury, rising to 21 mm mercury after 1 L normal saline over 10 minutes. Wedge pressure 19 mm mercury .. mild pulmonary hypertension on right heart catheterization (40-45 MmHG). Hx recurrent pericarditis/ pericardial effusion, Sjogren's syndrome. Dysphagia Edema of thigh resolved with [facility] admission/care Fatigue severe, sudden onset, napped x hours this week (2' fluconazole?) Femoroacetabular impingement of both hips Former smoker Quit 05/2009 Herpes simplex Hip effusion, right Aspirated, Ortho, 06/2021 Hyperlipidemia (07/23/12) Hx declining statin? Increased BMI (body mass index) (05/11/17) Morbid obesity per [facility] Gen Surge 04/21/21 note Left carpal tunnel syndrome Lichen sclerosus et atrophicus Halbetasol per [facility], 01/2021. (2019. Patient advised to begin topical steroid to vulva) Lipoma of left upper extremity Localized osteoarthritis of right knee Low back pain Neoplasm of uncertain behavior of skin (05/15/14) Left forehead, status post excision with primary closure. Seborrheic keratosis by final pathology. 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 TAYLER ([facility]) shows borderline/normal results. 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 Perez on 01/06/20 Posterior tibial tendon dysfunction, left Restless leg syndrome Screening mammography declined 12/2020 EO Severe obstructive sleep apnea 06/13/21 Sleep study note Severe right groin pain x 2 weeks, with Hx low grade discomfort x months. Hx UrSling. Rt thigh pain described. Shortness of breath Sialoadenitis (10/31/13) Skin lesion of neck Snoring Stopped smoking with greater than 40 pack year history Strain of muscle of right groin region Tobacco dependence Unilateral primary osteoarthritis, left knee Surgical History Abdominal hysterectomy ENDOMETRIOSIS; ONE OVARY REMAINS Colonoscopy - IV Sedation (04/25/16) History of ankle surgery hardware present History of arthroplasty of finger of left hand History of bunionectomy of both great toes History of carpal tunnel surgery of left wrist History of colpocleisis History of suburethral sling procedure 12/18/18 Vaginectomy/colpocleisis with Posterior colporrhapy and transobturator mid urethral sling at [facility] Hx of appendectomy Hx of thumb surgery Prolapse of female pelvic organs Stage III post hysterectomy vaginal prolapse with stress incontinence. Rx at [facility] 12/18/18. Status post abdominal hysterectomy Status post tonsillectomy 2018? Tonsillectomy Family History Mother , AGE 91 Alzheimer disease Father , AGE 86 Essential hypertension AAA (abdominal aortic aneurysm) Alzheimer disease Heart disease Hyperlipidemia Bladder cancer Sister No problems noted. Maternal Grandfather , SHOT AGE 35 No problems noted. Paternal Grandfather , AGE 93 Heart disease Maternal Grandmother , AGE 64 Uterine cancer Paternal Grandmother , AGE 73 AAA (abdominal aortic aneurysm) Stroke Son No problems noted. Son Asthma Son No problems noted. Social History Smoking/Tobacco Use Status: Former Tobacco Use Tobacco: How many years used: 45 Smoking risk assessment performed?: Yes Alcohol Intake: current Alcohol Intake frequency: holidays/special occasions only Alcohol type: beer and wine Drug use: Never Substance use type: does not use Counseling given: No Counseling provided: other Adopted: No Caregiver/Support person: No Foster care: No Household members: none Housing: house Number of Children: 3 number of grandchildren: 6 Communication Needs: None Education Level: college Details: Associate's Degree Do you need help understanding health information?: Never 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 [employer] Pets and animals: No Sexually active: No Do you think of yourself as: straight/heterosexual Current gender identity: female What is your relationship status?: How often do you talk on the phone with friends or family?: three or more times per week How often do you get together with friends or relatives?: twice per week Do you belong to any clubs or organized social groups?: yes Panel score (0-1 are the most socially isolated patients): 2 What type of physical activity do you participate in: weight lifting and occasional exercise Duration: > 90 minutes/day Frequency: daily Any/Mandaen: Mormon Special any needs: No Seatbelt use: always Helmet use: No Drive intox or ride w/intox 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
[2022-01-14 12:18] LABS: COVID-19 PCR Negative (Negative)
[2022-01-14] MEDS: ceFAZolin 3,000 MG in Normal Saline 100 ML 200 MG IVPB (12:23)
--- NOTE | 2022-01-14 13:41 | DI.RAD_ITS ---
Exam(s) XR HIP RT IN OR EXAM: XR HIP RT IN OR CLINICAL HISTORY: AVASCULAR NECROSIS RIGHT HIP. TECHNIQUE: 2D digital imaging was performed. COMPARISON: No exams were available for comparison FINDINGS: Fluoroscopy was provided during procedure on hip See procedure report for details. Total fluoroscopy time 36 seconds. Cumulative dose= 5.3346mGy IMPRESSION: DATA REPOSITORY: RADIATION DOSE DELIVERED:
--- NOTE | 2022-01-14 15:01 | DI.RAD_ITS ---
Exam(s) XR HIP LT IN OR EXAM: XR HIP LT IN OR CLINICAL HISTORY: AVASCULAR NECROSIS LEFT HIP. TECHNIQUE: 2D digital imaging was performed. COMPARISON: No exams were available for comparison FINDINGS: Fluoroscopy was provided during hip procedure. See procedure report for details. Total fluoroscopy time 36 seconds. Cumulative dose= 6.5587mGy IMPRESSION: DATA REPOSITORY: RADIATION DOSE DELIVERED:
--- NOTE | 2022-01-14 15:31 | W.PM.OP ---
Date of service: 01/14/22 Time of Service: 15:31 Operative Note Operative Note DATE OF PROCEDURE: 01/14/22 PRE-OP DIAGNOSIS: Bilateral Hip Osteoarthritis POST-OP DIAGNOSIS: same PROCEDURE: Bilateral Anterior Total Hip Arthroplasty with Intraoperative Navigation SURGEON: Guanako Bartholomew FITNESS CLUB MANAGER: Cyndi Gillis ANESTHESIA TYPE: Spinal Refer to Anesthesia Record ESTIMATED BLOOD LOSS: 300 PATHOLOGY: none sent COMPLICATIONS: None Patient was transported to: PACU Patient's condition: stable Implants: RIGHT: 1. Depuy [place] Acetabular Component, 52mm 2. Depuy Acetabular Liner, [id number] 3. Depuy Corail Standard 125 degree Collared Femoral Stem, Size 12 4. Depuy Altrx Ceramic Femoral Head, Size 36+1.5mm LEFT: 1. Depuy [place] Acetabular Component, 52mm 2. Depuy Acetabular Liner, [id number] 3. Depuy Corail Standard 125 degree Collared Femoral Stem, Size 12 4. Depuy Altrx Ceramic Femoral Head, Size 36+5mm Indications: I have seen Fe in clinic for symptoms of hip pain, confirmed with radiographic findings to be aggressive arthritis with some avascular necrosis. Fe has exhausted nonoperative methods and was having significant limitations in daily function and desired better function and less pain. I discussed the technical details of a hip replacement. I explained the risks of the procedure to include, but not limited to, bleeding, infection, pain, stiffness, fracture, damage to nerves and vessels, damage to muscles and tendons, loosening, instability, leg length inequality, need for repeat procedure, blood clot and cardiopulmonary demise. Despite these risks, she elected to proceed. Findings: There was significant signs of arthritis throughout both hips. Both femoral heads had soft spots with obviously necrotic sections. THere was notable synovitis and fluid within both hips and debris throughout. Procedure Description: Fe was greeted in the preoperative holding area where the correct side was identified and marked. The consent was reviewed with the patient and signed. The history and physical was updated. All questions were answered. Fe was taken back to the operating room. A spinal anesthestic was then administered. The patient was placed into the supine position on the HANA table. Both feet were wrapped with [place] cotton wrap along with Coban. RIGHT Side The feet were placed in specialized boots for the HANA table, well seated within the boot and secured. SCDs were applied. The patient was then slid down onto a peroneal post. A preoperative AP hip was obtained to serve as a reference for determining leg lengths. Prophylactic antibiotics in the form of Cefazolin were administered. 1g of Tranxemic Acid was given intravenously within 30 minutes of incision. The right leg was then prepped with Chloraprep and draped in a standard fashion. A second prep with Chloraprep was performed prior to placement of a shower-curtain type drape with Iodine impregnated skin protection. A timeout to confirm correct identity, side and site, procedure, allergies, anesthesia, and medical concerns was performed. An obliquely oriented incision was made starting lateral to the ASIS and running distal over the Tensor Fascia Janee (TFL) muscle belly toward the fibular head, approximately 10cm. The skin and soft tissue was dissected sharply, through Wilma?s fascia, and to the fascia of the TFL. With the fascia and superior border of the IT band identified, the fascia was incised with a new knife just above any perforators from the IT band. The TFL muscle belly was bluntly dissected away from the fascia and moved laterally. The fat between TFL and rectus was identified to ensure the dissection was not within the TFL. Blunt dissection created space between abductors and the capsule and retractor was placed over the lateral femoral neck. The fibers of the rectus femoris tendon were identified and these were freed from the anterior capsule. A second cobra retractor was placed around the medial femoral neck. The TFL was further retracted laterally to show the deep fascia. Careful dissection through this layer identified three main crossing vessels of the lateral femoral circumflex. These were cauterized in multiple locations and then cut without any noticeable bleeding. The TFL was further released bluntly from the deep fascia to expose anterior hip capsule and fat The Brennon orthopaedic retractor was then placed beneath the TFL and against sartorius and medial soft tissues to protect and retract the soft tissues. A T-capsulotomy was then performed starting at the superior lateral acetabulum and moving distally to the intertrochanteric ridge. These capsular flaps were tagged with a No. 1 Ethibond and elevated from within. The capsular flaps were released to the shoulder of the lateral neck and to the lesser trochanter to give excellent visualization of the proximal femur. There is significant synovitis in this region as well as significant mount of joint fluid. Voluminous and redundant synovium was resected for better visualization. A neck osteotomy was performed using an oscillating saw based on preoperative templates. This cut started in the shoulder and of the lateral neck and exited medially. The saw was at all times directed medially to avoid injury to the greater trochanter. Gentle traction was applied to the leg and the osteotomy opened. The femoral head was removed with a corkscrew, making sure to protect the TFL on its exit. This was measured on the back table to determing the starting reamer size. There were portions of the femoral head centrally and superiorly that were soft and necrotic. Portions of the rectus obscuring visualization were minimally elevated off the superior acetabulum. An anterior retractor was placed over the anterior wall between capsule and labrum and attached to the Gripper retraction system. A posterior retractor was placed similarly. This provided excellent visualization. The contents of the cotyloid fossa were removed with electrocautery and the labrum was removed with a knife. There was a notable floor osteophyte. Acetabular reaming began with a 46mm reamer. This first reaming was directed anterior to posterior and medial to get down to the true floor. This was inspected and reamed until the true floor was reached. The anterior retractor was then released and entry and exit was provided by traction on the capsular flaps. I then reamed sequentially up to a 52mm reamer where good fit was obtained. The larger reamers were oriented based on anatomical reference of the anterior and lateral kim to ensure proper abduction and anteversion. Positioning and size was confirmed with the fluoroscopy. A 52mm Depuy [place] acetabular component was selected. The acetabulum was reamed around the periphery with the selected acetabular size to prevent a rim fit. The deep tissues were irrigated. The acetabular component was then impacted in a position of about 40-45 degrees of abduction and 15-20 degrees of anteversion, using the patient?s anatomy as the ultimate landmark. Fluoroscopy was used to confirm this. There was excellent body technician/painter of the acetabular component and the inserting handle was removed. The acetabular liner, Depuy [id number] polyethylene liner, was inserted and lined up with the tines of the acetabular component. There was no soft tissue interposition. The liner was then impacted into position and confirmed to be well-seated. A portion of the garrett-articular cocktail was then injected around the acetabulum into the capsule and periosteum. This cocktail consisted of 123mg of Ropivacaine, 0.25mg of Epinephrine, 0.04mg of Clonidine, and 15mg of Ketorolac, diluted to 50cc. Traction was released from the femur. The leg was rotated to 120 degrees. Any remaining medial capsule was released until the lesser trochanter was easily palpable. A Vazquez retractor was placed medially. The lateral capsule was further released into the shoulder to allow access to the greater trochanter. A Vazquez retractor was placed over the greater trochanter which allowed the trochanter to flip in front of the capsule for excellent exposure. The leg was brought down into maximal extension and 20 degrees of adduction while ensuring there was no impingement on the acetabulum. Any remnant capsule within the trochanter was released. Piriformis and obturator externis were identified and protected. There was excellent access to the proximal femur. The lateral neck remnant was removed with a rongeur. A blunt canal probe was used to identify the canal and trajectory for later broaching. A box osteotome initiated the broach course. A small curved rasp and a curved curette were used to work laterally. Broaching then began with a size 8 Corail broach. This was inserted manually around the trochanter and into the canal before mallet blows. The broach was seated to a few millimeters below the cut level based on the neck cut and the preoperative template. Sequential broaching was continued until a tight fit was obtained with good rotational control of the femur. A trial standard 125 neck was inserted along with a +1.5 trial head. The leg was brought out of extension and adduction and then reduced with traction and internal rotation. The leg was stable anteriorly in a position of 30 degrees of extension and 90 degrees of external rotation. Fluoroscopy was used to ensure there was no fracture and the stem was seated well. Leg lengths were checked with an AP pelvis and pelvic reference points. [employer] navigation system was used to confirm appropriate positioning and leg length and offset. Once content with the desired offset and leg lengths, the leg was brought back into extension, external rotation and adduction. The periosteum and surrounding tissue was injected with remaining portion of the garrett-articular cocktail. The proximal femur was irrigated as well as the deep tissues. The [employer] Corail standard 125 degree collared stem, size 12, was then manually inserted into the proximal femur making sure to control rotation. It was then malleted into position with light blows, giving breaks to allow bone expansion and decrease risk of fracture. The selected Depuy Altrx Ceramic Head, size 36+1.5mm, was then placed onto the clean and dry trunnion and secured with impaction onto the tapered fit. The leg was brought back out of extension and adduction and reduced with traction and internal rotation. Stability was confirmed with no shuck at 90 degrees of external rotation and 30 degrees of extension. No impingement through range of motion arc. Final x-ray images were obtained with fluoroscopy to confirm adequate positioning and no intraoperative fracture. The deep tissues were thoroughly irrigated with Irrisept chlorhexadine solution. The second dose of TXA 1g was administered intravenously.The capsule was then reapproximated with the previously placed Ethibond sutures. The TFL fascia was finally closed with a No. 2 Stratafix, barbed suture. Deep tissues were then reapproximated with 0 Vicryl and a running 2-0 Vicryl. The skin was closed with a running 4-0 Monocryl in a subcuticular fashion. This was reinforced with skin glue. A Mepilex silver dressing was applied. LEFT Side Keeping the back table sterile, the drapes were removed, light handles changed, and fluoroscopy switched rooms sides. Once again, a AP hip was obtained to serve as a reference for determining leg lengths. The left leg was then prepped with Chloraprep and draped in a standard fashion. A second prep with Chloraprep was performed prior to placement of a shower-curtain type drape with Iodine impregnated skin protection. A timeout was once again performed to ensure that there were no issues to proceed. An obliquely oriented incision was made starting lateral to the ASIS and running distal over the Tensor Fascia Janee (TFL) muscle belly toward the fibular head, approximately 10cm. The skin and soft tissue was dissected sharply, through Wilma?s fascia, and to the fascia of the TFL. With the fascia and superior border of the IT band identified, the fascia was incised with a new knife just above any perforators from the IT band. The TFL muscle belly was bluntly dissected away from the fascia and moved laterally. The fat between TFL and rectus was identified to ensure the dissection was not within the TFL. Blunt dissection created space between abductors and the capsule and retractor was placed over the lateral femoral neck. The fibers of the rectus femoris tendon were identified and these were freed from the anterior capsule. A second cobra retractor was placed around the medial femoral neck. The TFL was further retracted laterally to show the deep fascia. Careful dissection through this layer identified three main crossing vessels of the lateral femoral circumflex. These were cauterized in multiple locations and then cut without any noticeable bleeding. The TFL was further released bluntly from the deep fascia to expose anterior hip capsule and fat The Brennon orthopaedic retractor was then placed beneath the TFL and against sartorius and medial soft tissues to protect and retract the soft tissues. A T-capsulotomy was then performed starting at the superior lateral acetabulum and moving distally to the intertrochanteric ridge. These capsular flaps were tagged with a No. 1 Ethibond and elevated from within. The capsular flaps were released to the shoulder of the lateral neck and to the lesser trochanter to give excellent visualization of the proximal femur. Much like the other fabrice ethere was abundant synovium from synovitis and a large effusion. A neck osteotomy was performed using an oscillating saw based on preoperative templates. This cut started in the shoulder and of the lateral neck and exited medially. The saw was at all times directed medially to avoid injury to the greater trochanter. Gentle traction was applied to the leg and the osteotomy opened. The femoral head was removed with a corkscrew, making sure to protect the TFL on its exit. This was measured on the back table to determing the starting reamer size. Portions of the rectus obscuring visualization were minimally elevated off the superior acetabulum. An anterior retractor was placed over the anterior wall between capsule and labrum and attached to the Gripper retraction system. A posterior retractor was placed similarly. This provided excellent visualization. The contents of the cotyloid fossa were removed with electrocautery and the labrum was removed with a knife. Excessive synovium from around the acetabulum was also removed. Acetabular reaming began with a 46mm reamer. This first reaming was directed anterior to posterior and medial to get down to the true floor. This was inspected and reamed until the true floor was reached. The anterior retractor was then released and entry and exit was provided by traction on the capsular flaps. I then reamed sequentially up to a 52mm reamer where good fit was obtained. The larger reamers were oriented based on anatomical reference of the anterior and lateral kim to ensure proper abduction and anteversion. Positioning and size was confirmed with the fluoroscopy. A 52mm Depuy [place] acetabular component was selected. The acetabulum was reamed around the periphery with the selected acetabular size to prevent a rim fit. The deep tissues were irrigated. The acetabular component was then impacted in a position of about 40-45 degrees of abduction and 15-20 degrees of anteversion, using the patient?s anatomy as the ultimate landmark. Fluoroscopy was used to confirm this. There was excellent body technician/painter of the acetabular component and the inserting handle was removed. The acetabular liner, Depuy [id number] polyethylene liner, was inserted and lined up with the tines of the acetabular component. There was no soft tissue interposition. The liner was then impacted into position and confirmed to be well-seated. A portion of the garrett-articular cocktail was then injected around the acetabulum into the capsule and periosteum. This cocktail consisted of 123mg of Ropivacaine, 0.25mg of Epinephrine, 0.04mg of Clonidine, and 15mg of Ketorolac, diluted to 50cc. Traction was released from the femur. The leg was rotated to 120 degrees. Any remaining medial capsule was released until the lesser trochanter was easily palpable. A Vazquez retractor was placed medially. The lateral capsule was further released into the shoulder to allow access to the greater trochanter. A Vazquez retractor was placed over the greater trochanter which allowed the trochanter to flip in front of the capsule for excellent exposure. The leg was brought down into maximal extension and 20 degrees of adduction while ensuring there was no impingement on the acetabulum. Any remnant capsule within the trochanter was released. Piriformis and obturator externis were identified and protected. There was excellent access to the proximal femur. The lateral neck remnant was removed with a rongeur. A blunt canal probe was used to identify the canal and trajectory for later broaching. A box osteotome initiated the broach course. A small curved rasp and a curved curette were used to work laterally. Broaching then began with a size 8 Corail broach. This was inserted manually around the trochanter and into the canal before mallet blows. The broach was seated to a few millimeters below the cut level based on the neck cut and the preoperative template. Sequential broaching was continued until a tight fit was obtained with good rotational control of the femur. A trial standard 125 degree neck was inserted along with a +1.5 trial head. The leg was brought out of extension and adduction and then reduced with traction and internal rotation. The leg was stable anteriorly in a position of 30 degrees of extension and 90 degrees of external rotation. Fluoroscopy was used to ensure there was no fracture and the stem was seated well. Leg lengths were checked with an AP pelvis and pelvic reference points. [employer] navigation system was used to confirm appropriate positioning and leg length and offset. Once content with the desired offset and leg lengths, the leg was brought back into extension, external rotation and adduction. The periosteum and surrounding tissue was injected with remaining portion of the garrett-articular cocktail. The proximal femur was irrigated as well as the deep tissues. The Depuy [place] standard 125 degree collared stem, size 12, was then manually inserted into the proximal femur making sure to control rotation. It was then malleted into position with light blows, giving breaks to allow bone expansion and decrease risk of fracture. The selected Depuy Altrx Ceramic Head, size 36+5mm, was then placed onto the clean and dry trunnion and secured with impaction onto the tapered fit. The leg was brought back out of extension and adduction and reduced with traction and internal rotation. Stability was confirmed with no shuck at 90 degrees of external rotation and 30 degrees of extension. No impingement through range of motion arc. Final x-ray images were obtained with fluoroscopy to confirm adequate positioning and no intraoperative fracture. The deep tissues were thoroughly irrigated with Irrisept chlorhexadine solution. The capsule was then reapproximated with the previously placed Ethibond sutures. The TFL fascia was finally closed with a No. 2 Stratafix, barbed suture. Deep tissues were then reapproximated with 0 Vicryl and a running 2-0 Vicryl. The skin was closed with a running 4-0 Monocryl in a subcuticular fashion. This was reinforced with skin glue. A Mepilex silver dressing was applied. At the end of the case, all counts were correct. Fe was transferred to the hospital bed without difficulty and suffering no apparent complication. Jayna has a good prognosis. Physical therapy will start today and without restrictions, weight-bearing as tolerated. Rivaroxaban 10mg daily will be used for DVT prophylaxis.
--- NOTE | 2022-01-14 16:04 | W.ANESPOSTOP ---
Postoperative Evaluation Date, Time and Location Date Performed: 01/14/22 Time Performed: 16:04 Patient Location: PACU Vital Signs Most Recent Imported Vital Signs: Most Recent Vital Signs Temp Pulse Resp BP Pulse Ox 36.3 C L 56 L 13 109/70 100 01/14/22 15:46 01/14/22 15:46 01/14/22 15:46 01/14/22 15:46 01/14/22 15:46 Assessment Mental Status: Awake (Alert & Oriented to Patient Baseline) Airway and Respiratory Function: Patent airway with normal (patient baseline) respiratory exam Cardiovascular Function: Hemodynamically Stable Hydration Status: Adequately Hydrated Nausea & Vomiting: No Nausea or Vomiting Pain: Pt. Denies Any Pain Peripheral Nerve Block: Patient did not receive a nerve block
[2022-01-14] MEDS: Sucralfate 1 GM TAB PO ×2 (16:41→21:30)
[2022-01-14] MEDS: rOPINIRole 1 MG TAB 2 MG PO (19:10)
[2022-01-14] MEDS: Pantoprazole 40 MG TABCR PO (19:11)
[2022-01-14] MEDS: Acetaminophen 500 MG TAB PO (19:11)
[2022-01-14] MEDS: Celecoxib 200 MG CAP PO (19:12)
[2022-01-14] MEDS: ceFAZolin 1 GM/50 ML BAG IVPB (19:13)
[2022-01-14] MEDS: Sertraline 50 MG TAB PO (21:30)
[2022-01-14] MEDS: Rivaroxaban 10 MG TABLET PO (21:30)
[2022-01-14] MEDS: fentaNYL 100 MCG/2 ML VIAL 50 MCG IVP (22:20)
[2022-01-15] VITALS (8 sets, daily range): BP systolic 91–140; BP diastolic 52–78; PULSE 75–89; RESP 16–18; TEMP 36.4–36.9; O2SAT 95–98
[2022-01-15] MEDS: ceFAZolin 1 GM/50 ML BAG IVPB ×2 (04:29→12:07)
[2022-01-15] MEDS: Levothyroxine 75 MCG TAB PO (05:46)
[2022-01-15 06:49] LABS: HCT 27.6 % (36.0-46.0); MCH 29.6 pg (27.0-33.0); MCHC 32.6 % (32.0-36.0); MCV 91 fL (80-95); MPV 9.2 fL (8.0-11.0); Platelet Count 216 10^3/uL (130-400); RBC 3.04 10^6/uL (3.93-5.22); RDW 12.9 % (11.7-14.6); RDW-SD 42.5 fL
[2022-01-15 07:10] LABS: Anion Gap 5.2 mmol/L (3-11); BUN 22 mg/dL (7-18); CO2 30.8 mmol/L (21.0-32.0); CREATININE 1.6 mg/dL (0.55-1.02); Chloride 102 mmol/L (98-107); Estimated GFR 33.22 (mL/min/1.73m2); Glucose 131 mg/dL (74-106); Sodium 138 mmol/L (136-145)
--- NOTE | 2022-01-15 07:45 | IN_ITS ---
PT Notes Visit Reasons: Bilateral hip DJD Inpatient Physical Therapy Evaluation Date: [] Referring Doctor: Guanako Bartholomew DATE OF PROCEDURE: 01/14/22 PRE-OP DIAGNOSIS: Bilateral Hip Osteoarthritis POST-OP DIAGNOSIS: same PROCEDURE: Bilateral Anterior Total Hip Arthroplasty with Intraoperative Navigation SURGEON: Guanako Bartholomew [employer]UMAN [employer]OURCES DISTRICT MANAGER: Cyndi Gillis PT Orders: PT CONSULT: [] Precautions: [] Patient Profile/Admitting Diagnosis: [] PMHX: [] Social History/Home Situation: [] Current Functional Limitations: [] Equipment Owned/DME: [] Subjective: [] Objective: [] General Observation: [] Mental Status: [] Pain: [] Vital Signs: [] ROM: Right Upper Extremity: [] Left Upper Extremity: [] Right Lower Extremity: [] Left Lower Extremity: [] Strength: Right Upper Extremity: [] Left Upper Extremity: [] Right Lower Extremity: [] Left Lower Extremity: [] Sensation: [] Bed Mobility/Transfers: [] Gait: [] Balance: [] Static Sitting: [] Dynamic Sitting: [] Static Standing: [] Dynamic Standing: [] Special Tests: Mobility Limitations Standardized Measure [facility] 6 clicks Basic Mobility Inpatient Short Form: Raw Score: [] Standardized Score: [] CMS Score: [] Informed Consent/Education: Patient instructed in purpose of PT consult and plan of care. Assessment: Patient is a [] year old [] referred to physical therapy services with the diagnosis of []. Patient presents with clinical signs and symptoms consistent with [], as demonstrated by the following impairment level findings: []. Impairments are contributing to the following functional limitations: AMPAC score. Patient is assessed as a [] Low 14982 [] Moderate 75345 [] High 48248 complexity based on the following: History: [] Examination: [] Presentation: [] Decision Making: [] Goals: Goals X1 week 1. Supine-Sit [] 2. Sit-Supine [] 3. Sit-Stand [] 4. Stand-Sit [] 5. Bed-Chair [] 6. Chair-Bed [] 7. Gait [] 8. Stairs [] 9. Independent with home exercise program [] 10. Balance [] Plan of Care/Treatment Plan: 1-2x/day, Plan of care has been reviewed with the OPERATING ROOM TECHNOLOGIST providing the service under Physical Therapy direction. Initiate Physical Therapy intervention for strengthening, bed mobility, transfers, gait, stairs, balance training, use of assistive device. DISCHARGE RECOMMENDATIONS: [] [] Home with no services [] [] Home with services [specify] [] Home with outpatient PT [] [] SNF for continued rehabilitation [] [] Custodial Care [] [] SNF versus LTC based on ability to participate and progress [] TREATMENT CODE/TIME: []
--- NOTE | 2022-01-15 07:51 | IN_ITS ---
PT Notes Visit Reasons: Bilateral hip DJD Inpatient Physical Therapy Evaluation Date: 01/15/2022 Referring Doctor: Guanako Bartholomew DATE OF PROCEDURE: 01/14/22 PRE-OP DIAGNOSIS: Bilateral Hip Osteoarthritis POST-OP DIAGNOSIS: same PROCEDURE: Bilateral Anterior Total Hip Arthroplasty with Intraoperative Navigation SURGEON: Guanako Bartholomew ECOLOGIST TECHNICIAN: Cyndi Gillis PT Orders: PT CONSULT: WBAT Precautions: standard, WBAT Patient Profile/Admitting Diagnosis: Pt. is a 76 yo female, s/p Bilateral Anterior Total Hip Arthroplasty 01/14/2022, Pt was still in surgery as of 2:45 01/14/2022 thus admitted overnight. PMHX: All Active Problems?(Updated 11/26/21 @ 09:07 by Mariajose Cuenca DO) S/p bilateral RACHEL 01/14/2022 Bilateral groin pain (Acute) Inguinal Ligament Pain & Stiffness .. becomes hard, like a boneHip osteoarthritis (Acute) Sacroiliac dysfunction (Acute) [place] [facility] [place] noteDisplacement of lumbar intervertebral disc (Acute) 08/23/21 [facility] [place] and spine noteLumbar stenosis (Chronic) with lumbosacral radiculopathy per Pain ClinicPelvic somatic dysfunction (Acute) Per PMR/Spine ... severe pain of SI Joint, Lower Back, Buttocks.Pelvic floor dysfunction (Acute) Presumed, [ ] P.PTBack pain (Acute) Weakness (Acute) Bilateral edema of lower extremity (Acute) Adult failure to thrive (Acute) Chronic pain of both lower extremities (Acute) Breath shortness (Acute) CHF (congestive heart failure) (Chronic) mild-mod per new cardio eval (not as severe as originally thought)(not responsible for degree of edema observed, 09/2021)Edema due to congestive heart failure (Chronic) Doubting CHF as full reason for edema (New Cardio, 09/2021).Acute on chronic, presumed CHF.. following diuresis per Dr. Perez direction, 06/2021.Nodule of spleen (Acute) Dyspnea on exertion (Acute) Coronary artery disease involving [place] coronary artery of [place] heart without angina pectoris (Acute) Bilateral groin pain (Chronic) & buttock .. see PMR note, 08/2021.JOSTIN (acute kidney injury) (Acute) Cr 1.7 vs 1.5, 09/03/21 .. complicating diuresis.Chronic renal insufficiency, stage II (mild) (Chronic) Mild-Mod CKD G3a (GFR 48, 08/2020).Hiatal hernia (Chronic) General/Bariatric Surgery on HOLD 2' CHF, Hip Pain. Widened retrocardiac hiatal hernia, 7cm x 5cm AP. Larger than 2013..Hx GERD, with possible new symptoms (12/2020). Surgery?Osteoarthritis of hips, bilateral (Acute 06/03/21) [facility] xrayAbnormal chest CT (Acute) [facility] 06/03/21:? Recommendations to be discussed w/ pt; 1.? F/u imaging of enlarged subcarinal node 3-6mo. 2.? Correlating mammography or breast u/s for breast nodules (non-emergent). 3.? Dedicated imaging for indeterminate splenic lesion. 4.? Repeat Chest CT Q12mo to f/u on nodules bi-lat.Lung nodule < 6cm on CT (Acute) 4mm, per 12/2020 CT (new since 2012).. 6 mo FU [ ]Shrinking lung syndrome (Acute) Restrictive lung disease (Acute) PFT, 01/2021 (Spirometry: Muscle pressures are decreased.. diffusion [capacity] reduced.. Airway resistance normal...Possible mild restrictive lung disease with decreased muscle pressures and a reduced diffusion. (compared to 02/23/2012, total lung capacity & diffusion is reduced .. Clinical Correlation (?) ikSjogren's disease (Chronic) GERD (gastroesophageal reflux disease) (Chronic) Tubular adenoma of colon (Chronic 04/25/16) Prediabetes (Acute) A1C 5.8Hypothyroidism (Chronic) Medical History? Abnormal finding on imaging CT (Lung Ca Screen), 12/2020: Increased markings, 4mm RLL nodule, Dec volume, widened hiatal hernia.Achilles tendonitis Left, with plantar fasciitisAcute nonintractable headache Anterior epistaxis BPPV (benign paroxysmal positional vertigo) Chronic antral gastritis Chronic pain Diastolic dysfunction New Cardio disagrees, 09/2021. Per Cardio (Chris), 09/2018 ... June 29, 2010: LVEDP 23 mm mercury. January 31, 2000. LVEDP 7 mm mercury, rising to 21 mm mercury after 1 L normal saline over 10 minutes. Wedge pressure 19 mm mercury .. mild pulmonary hypertension on right heart catheterization (40-45 MmHG). Hx recurrent pericarditis/ pericardial effusion, Sjogren's syndrome.Dysphagia Edema of thigh resolved with [facility] admission/careFatigue severe, sudden onset, napped x hours this week (2' fluconazole?)Femoroacetabular impingement of both hips Former smoker Quit 05/2009Herpes simplex Hip effusion, right Aspirated, Ortho, 06/2021Hyperlipidemia (07/23/12) Hx declining statin?Increased BMI (body mass index) (05/11/17) Morbid obesity per [facility] Gen Surge 04/21/21 noteLeft carpal tunnel syndrome Lichen sclerosus et atrophicus Halbetasol per [facility], 01/2021. (2019. Patient advised to begin topical steroid to vulva)Lipoma of left upper extremity Localized osteoarthritis of right knee Low back pain Neoplasm of uncertain behavior of skin (05/15/14) Left forehead, status post excision with primary closure. Seborrheic keratosis by final pathology. 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 Perez on 01/06/20 Posterior tibial tendon dysfunction, left Restless leg syndrome Screening mammography declined 12/2020 EOSevere obstructive sleep apnea 06/13/21 Sleep study noteSevere right groin pain x 2 weeks, with Hx low grade discomfort x months. Hx UrSling. Rt thigh pain described.Shortness of breath Sialoadenitis (10/31/13) Skin lesion of neck Snoring Stopped smoking with greater than 40 pack year history Strain of muscle of right groin region Tobacco dependence Unilateral primary osteoarthritis, left knee Surgical History? Abdominal hysterectomy ENDOMETRIOSIS; ONE OVARY REMAINSColonoscopy - IV Sedation (04/25/16) History of ankle surgery hardware presentHistory of arthroplasty of finger of left hand History of bunionectomy of both great toes History of carpal tunnel surgery of left wrist History of colpocleisis History of suburethral sling procedure 12/18/18 Vaginectomy/colpocleisis with Posterior colporrhapy and transobturator mid urethral sling [place] [facility] [place]x of appendectomy Hx of thumb surgery Prolapse of female pelvic organs Stage III post hysterectomy vaginal prolapse with stress incontinence. Rx at [facility] [place]/18/18. Status post abdominal hysterectomy Status post tonsillectomy 2018?Tonsillectomy Social History/Home Situation: Lives alone in senior housing 1 floor living. Needs stepstool to get into bed 2 inch, 4 inch with arm hold. Current Functional Limitations: Needs walker for ambulation. Needs stepstool to get in and out of bed. Needs headboard at home to be able to go supine to sit in bed. In hospital utilizes head elevation to go supine to sit. Equipment Owned/DME: Rolling walker. Unable to find walker the patient had from home in surgical day has green sliders on the back feet. Subjective: The doctor said that I will be going home on Monday and I will be getting home services. I cannot believe how much better I feel postoperatively than he did preoperatively and felt Objective: General Observation: Patient appears comfortable, sitting up in bed with Daniels no IV. Mental Status: A&O x3 pleasant and cooperative Pain: 2/10 Vital Signs: NT ROM: Right Upper Extremity: WNL Left Upper Extremity: WNL Right Lower Extremity: WNL, 95 hip flexion Left Lower Extremity: WNL, 95 hip flexion Strength: Right Upper Extremity: WFL Left Upper Extremity: WFL Right Lower Extremity: Q4/5 H 4/5 DF 5/5 hip flexion 3/5 Left Lower Extremity:Q4/5 H 4/5 DF 5/5 hip flexion 3/5 Sensation: LE intact light touch Bed Mobility/Transfers: Patient needs use of head elevation and hospital bed to be able to go supine to sit, unable to roll side to side status post RACHEL, independent but slow with being able to swing legs to edge of bed. Able to position at edge of bed independently. Sit to stand from bed independent, guarded as first time. Sit to stand and stand to sit to chair with arms from rolling walker independent x4. Patient reports bed at home is high off the ground she has a 2 inch step onto a 4 inch step with a rail and use of walker to get into bed we perform a 4 inch step up on stairs to mimic this and patient is able to do with assist of 2 rails 1 time each leg. Gait: Ambulation with rolling walker with supervision 4 x 10 feet including turning. Balance: Static Sitting: Good Dynamic Sitting: Good Static Standing: Good at walker if needed Dynamic Standing: NT Special Tests: Mobility Limitations Standardized Measure [facility] AM-PAC 6 clicks Basic Mobility Inpatient Short Form: Raw Score: 17 Standardized Score: 42.13 CMS Score: 50.57 Informed Consent/Education: Patient instructed in purpose of PT consult and plan of care. Assessment: Patient is a 76 year old female referred to physical therapy services with the diagnosis of s/p Bilateral Anterior Total Hip Cfjdsixcunev60/7/2022. Patient presents with clinical signs and symptoms consistent with Bilateral Anterior Total Hip Zchtamvyxzru75/7/2022 . Pt. lives alone single level living, states there is a small rise in her threshold. States she has no assistance. We are unable to locate her RW with green sliders on rear left in surgical day. She reports having step up and down into her bed at home and potential difficulty getting supine to sit at home based on clinical exam today. She is doing well with transfers from sit to stand and stand to sit into both bed and chair within the hospital. She ambulates with rolling walker with supervision and performs well with verbal cueing to bend her knees but appears safe and stable. Patient will benefit from skilled physical therapy to progress lower extremity strength, improve ability to transfer on and off the bed and from supine to sit and sit to supine while in hospital. Patient also issued exercise program to be performed every hour of quad sets, glutes squeezes, pelvic tilts, ankle pumps. Also to perform if sitting leg extensions, heel toe raises, standing small range hip abduction. Handout issued to patient at bedside. Patient should have skilled physical therapy with SUSTAINABILITY EXECUTIVE DIRECTOR while in hospital to improve ability to transfer and promote independence once at home. Once discharged it would be beneficial for her to have home health to perform home assessment especially transfer in and out of her bed at home. Patient is assessed as a Low 69661 complexity based on the following: Goals: Goals X1 week 1. Supine-Sit I 2. Sit-Supine I 3. Sit-Stand I 4. Stand-Sit I 5. Bed-Chair I 6. Chair-Bed I 7. Gait I WITH RW 8. Stairs with 2 rails I 9. Independent with home exercise program 10. Balance good dynamic standing Plan of Care/Treatment Plan: 1-2x/day, 7 days/week x 1 week. Plan of care has been reviewed with the SUSTAINABILITY EXECUTIVE DIRECTOR providing the service under Physical Therapy direction. Initiate Physical Therapy intervention for strengthening, bed mobility, transfers, gait, stairs, balance training, use of assistive device. DISCHARGE RECOMMENDATIONS: Home with services , PT for home assessment, bed mobility TREATMENT CODE/TIME: [id number], [id number], [id number]
[2022-01-15] MEDS: Tiotropium/Olodaterol 10 PUFF INHALER 2 PUFF IH (07:58)
--- NOTE | 2022-01-15 08:38 | INITIAL_ITS ---
- If Service Date Differs Date of service: 01/15/22 Time of Service: 08:38 Care Management Initial Assess REASON FOR HOSPITALIZATION:: Bilateral hip DJD. PAST MEDICAL HISTORY/PAST SURGICAL HISTORY:: All Active Problems: Avascular necrosis of bone of hip (Acute) - per MRI, 12/2021, BILATERAL, Adult BMI 40.0- 44.9 kg/sq m (Acute), Bilateral groin pain (Acute), Inguinal Ligament Pain & Stiffness .. becomes hard, like a bone, Hip osteoarthritis (Acute), Sacroiliac dysfunction (Acute) - 08/23/21 [facility] Pain and spine note, Displacement of lumbar intervertebral disc (Acute) - 08/23/21 [facility] Pain and spine note, Lumbar stenosis (Chronic). with lumbosacral radiculopathy per Pain Clinic, Pelvic somatic dysfunction (Acute) - Per PMR/Spine ... severe pain of SI Joint, Lower Back, Buttocks,. Pelvic floor dysfunction (Acute) - Presumed, P.PT, Back pain (Acute), Weakness (Acute), Bilateral edema of lower extremity (Acute), Adult failure to thrive (Acute), Chronic pain of both lower extremities (Acute),. Breath shortness (Acute), CHF (congestive heart failure) (Chronic) -. mild-mod per new cardio eval (not as severe as originally thought)(not responsible for degree of edema observed, 09/2021), Edema due to congestive heart failure (Chronic) - Doubting CHF as full reason for edema (New Cardio, 09/2021). Acute on chronic, presumed CHF.. following diuresis per Dr. Perez direction, 06/2021, Nodule of spleen (Acute), Dyspnea on exertion (Acute), Coronary artery disease involving [place] coronary artery of [place] heart without angina pectoris (Acute), Bilateral groin pain (Chronic) & buttock .. see PMR note, 08/2021, JOSTIN (acute kidney injury) (Acute) - Cr 1.7 vs 1.5, 09/03/21 .. complicating diuresis, Chronic renal insufficiency, stage II (mild) (Chronic) - Mild-Mod CKD G3a (GFR 48, 08/2020), Hiatal hernia (Chronic), General/Bariatric Surgery on HOLD 2' CHF, Hip Pain. Widened retrocardiac hiatal hernia, 7cm x 5cm AP. Larger than 2013..Hx GERD, with possible new symptoms (12/2020). Surgery?,. Osteoarthritis of hips, bilateral (Acute 06/03/21) - [facility] xray, Abnormal chest CT (Acute) - [facility] 06/03/21: Recommendations to be discussed w/ pt; 1. F/u imaging of enlarged subcarinal node 3-6mo, 2. Correlating mammography or breast u/s for breast nodules (non- emergent),. 3. Dedicated imaging for indeterminate splenic lesion, 4. Repeat Chest CT Q12mo to f/u on nodules bi-lat, Lung nodule < 6cm on CT (Acute) -. 4mm, per 12/2020 CT (new since 2012).. 6 mo FU, Shrinking lung syndrome (Acute), Restrictive lung disease (Acute) - PFT, 01/2021 (Spirometry: Muscle pressures are decreased.. diffusion [capacity] reduced.. Airway resistance normal...Possible mild restrictive lung disease with decreased muscle pressures and a reduced diffusion. (compared to 02/23/2012, total lung capacity & diffusion is reduced .. Clinical Correlation (?) ik, Sjogren's disease (Chronic), GERD (gastroesophageal reflux disease) (Chronic),. Tubular adenoma of colon (Chronic 04/25/16), Prediabetes (Acute) - A1C 5.8, and Hypothyroidism (Chronic). Medical History: Abnormal finding on imaging - CT (Lung Ca Screen), 12/2020: Increased markings, 4mm RLL nodule, Dec volume, widened hiatal hernia, Achilles tendonitis - Left, with plantar fasciitis, Acute nonintractable head ache, Anterior epistaxis, BPPV (benign paroxysmal positional vertigo), Chronic antral gastritis, Chronic pain, Diastolic dysfunction - New Cardio disagrees, 09/2021. Per Cardio (Chris), 09/2018 ... June 29, 2010: LVEDP 23 mm mercury. January 31, 2000. LVEDP 7 mm mercury, rising to 21 mm mercury after 1 L normal saline over 10 minutes. Wedge pressure 19 mm mercury .. mild pulmonary hypertension on right heart catheterization (40-45 MmHG). Hx recurrent pericarditis/ pericardial effusion, Sjogren's syndrome, Dysphagia, Edema of thigh - resolved with [facility] admission/care, Fatigue - severe, sudden onset, napped x hours this week (2' fluconazole?), Femoroacetabular impingement of both hips, Former smoker - Quit 05/2009, Herpes simplex, Hip effusion, right - Aspirated, Ortho, 06/2021, Hyperlipidemia (07/23/12) - Hx declining statin?, Increased BMI (body mass index) (05/11/17) - Morbid obesity per [facility] Gen Surge 04/21/21 note, Left carpal tunnel syndrome, Lichen sclerosus et atrophicus - Halbetasol per [facility], 01/2021. (2019. Patient advised to begin topical steroid to vulva), Lipoma of left upper extremity, Localized osteoarthritis of right knee, Low back pain, Neoplasm of uncertain behavior of skin (05/15/14) - Left forehead, status post excision with primary closure. Seborrheic keratosis by final pathology. 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 Perez on 01/06/20, Posterior tibial tendon dysfunction, left, Restless leg syndrome, Screening mammography declined - 12/2020 EO, Severe obstructive sleep apnea - 06/13/21 Sleep study note, Severe right groin pain - x 2 weeks, with Hx low grade discomfort x months. Hx UrSling. Rt thigh pain described, Shortness of breath, Sialoadenitis (10/31/13) - Dr. Hernandez, Skin lesion of neck, Snoring, Stopped smoking with greater than 40 pack year history,. Strain of muscle of right groin region, Tobacco dependence, and Unilateral primary osteoarthritis, left knee. Surgical History: Abdominal hysterectomy - ENDOMETRIOSIS; ONE OVARY REMAINS, Colonoscopy - IV Sedation (04/25/16), History of ankle surgery -. hardware present, History of arthroplasty of finger of left hand, History of bunionectomy of both great toes, History of carpal tunnel surgery of left wrist, History of colpocleisis, History of suburethral sling procedure - 12/18/18 Vaginectomy/colpocleisis with Posterior colporrhapy and transobturator mid urethral sling at [facility], Hx of appendectomy, Hx of thumb surgery, Prolapse of female pelvic organs - Stage III post hysterectomy vaginal prolapse with stress incontinence. Rx at [facility] 12/18/18, Status post abdominal hysterectomy, Status post tonsillectomy. 2018?, and Tonsillectomy. PREVIOUS FUNCTIONAL STATUS/SOCIAL/FAMILY SUPPORTS:: Fe lives alone in a Senior Housing apartment in [place]. 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 She has 3 adult sons, all of whom reside out [employer] [facility] ([place], [place] and [place]). Her sister, Rosita, is supportive and she lives nearby in [place]. Her friend, Alisha, is also supportive and she does her grocery shopping when Fe is unable to get to the store. Fe is independent at baseline. CURRENT FUNCTIONAL STATUS:: Fe is lying in bed when CM enters her room. She is pleasant and talkative. She talks about her grandchildren, great grandchildren, and how much she enjoys going to [place], [place], to visit her son and his family. Fe shares she lived in [place], [place], for several years before returning to [place] where she grew up. ADVANCE DIRECTIVES:: Appointment of a Health Care Agent form on file; Rosita Jhonkwaku is appointed as HCA. Has patient been provided with info about the portal/API?: Yes Did the patient sign up for the portal?: Yes (Previously enrolled.) CODE STATUS:: Full Code INSURANCE COVERAGE / FINANCIAL ISSUES:: [employer] Senior Supplemental Insurance and Medicare. CURRENT HOME/COMMUNITY SERVICES/EQUIPMENT:: Cane and walker. PRIMARY CARE PHYSICIAN:: Mariajose Cuenca DO ([facility]). POTENTIAL DISCHARGE NEEDS:: Follow up appointments with PCP and orthopedic surgeon and new Home Health services. PATIENT/FAMILY EDUCATION NEEDS:: Review of discharge instructions re medications, limitations and follow up plan of care. ANTICIPATED BARRIERS TO DISCHARGE:: None identified at this time. TRANSPORTATION:: Via private vehicle with her sister. PLAN:: Fe will likely be discharged home with new Home Health RN and PT services. She will follow up with her PCP, orthopedic surgeon and plan of care as prescribed. She will be transported home by her sister via private vehicle when ready. CM will continue to follow.
[2022-01-15] MEDS: Torsemide 20 MG TAB 40 MG PO (08:45)
[2022-01-15] MEDS: Isosorbide Mononitrate 30 MG TABCR 60 MG PO (08:45)
[2022-01-15] MEDS: Celecoxib 200 MG CAP PO ×2 (08:46→19:37)
[2022-01-15] MEDS: Cholecalciferol (Vitamin D3) 1,000 UNIT TAB 1000 UNITS PO (08:46)
[2022-01-15] MEDS: Pantoprazole 40 MG TABCR PO ×2 (08:47→19:36)
[2022-01-15] MEDS: Dexamethasone 4 MG TAB PO (08:47)
[2022-01-15] MEDS: Acetaminophen 500 MG TAB PO ×3 (08:47→19:39)
[2022-01-15] MEDS: Sucralfate 1 GM TAB PO ×4 (08:48→21:39)
[2022-01-15] MEDS: Losartan 50 MG TAB 100 MG PO (08:48)
--- NOTE | 2022-01-15 10:25 | W.PM.PROGNOT ---
Date of Service Date of service: 01/15/22 Time of Service: 10:26 Assessment and Plan Assessment and plan (1) Avascular necrosis of bone of hip: Status: Acute Assessment and plan: Fe is a 76-year-old. Alivia 1 from bilateral hip replacements. She is doing well. We will start mobilization today physical therapy. When she therapy we will discontinue the Daniels catheter. Continue with pain management using hydrocodone and as needed fentanyl. She is quite sensitive to narcotics. She did have a slight increase in her creatinine today so I will recheck a BMP tomorrow. Additionally, she has had some drop in her hemoglobin which is to be expected following the surgery. This acute blood loss anemia is unlikely to pose a major issue but I will check hemoglobin tomorrow. Weightbearing as tolerated with assistive device. Continue rivaroxaban for DVT prophylaxis. Subjective Subjective Interval history since last seen: Fe reports been doing well. She denies any chest pain or shortness of breath. No nausea or vomiting. She did have some pain last night and is getting better. She is been draining urine from the catheter. No other acute issues. Exam Narrative Exam Narrative: Sitting up in the bed. No acute distress. Alert and orient x3. Both hips show clean dry and intact dressings. There is a mild amount of ecchymosis seen around the distal aspect of the wounds bilaterally, slightly worse on the right. Mild decrease in sensation just posterior to the incisions but no dysesthesias or numbness over the lateral femoral cutaneous nerve. She tolerates internal and external rotation without crepitus and without pain. Sensation intact light touch over the femoral and sciatic nerve distributions. Active ankle dorsiflexion, plantarflexion, great toe extension, great toe flexion intact bilaterally. Palpable DP and PT pulses bilaterally. Objective Last Vital Signs Temp 36.6 C 01/15/22 07:28 Pulse 86 01/15/22 07:28 Resp 16 01/15/22 07:28 BP 122/70 01/15/22 07:28 Pulse Ox 97 01/15/22 07:28 Laboratory Results - last 24 hr 01/14/22 01/15/22 01/15/22 11:35 06:15 06:15 WBC 11.50 H RBC 3.04 L Hgb 9.0 L Hct 27.6 L MCV 91 MCH 29.6 MCHC 32.6 RDW 12.9 Plt Count 216 MPV 9.2 Sodium 138 Potassium 4.0 Chloride 102 Carbon Dioxide 30.8 Anion Gap 5.2 BUN 22 H Creatinine 1.6 H Est GFR (CKD-EPI 2020) 33.22 Glucose 131 H Calcium 9.0 COVID-19 Source Nasal/Nares SARS-CoV-2 (PCR) Negative
[2022-01-15] MEDS: Lachydrin 12% LOTION 225 GM BTL TP (10:49)
[2022-01-15] MEDS: Normal Saline Flush 10 ML SYR IV ×5 (12:08→22:33)
[2022-01-15] MEDS: fentaNYL 100 MCG/2 ML VIAL 50 MCG IVP ×3 (14:32→22:33)
[2022-01-15] MEDS: rOPINIRole 1 MG TAB 2 MG PO (20:26)
[2022-01-15] MEDS: Gabapentin 300 MG CAP 600 MG PO (21:39)
[2022-01-15] MEDS: Sertraline 50 MG TAB PO (21:39)
[2022-01-15] MEDS: Rivaroxaban 10 MG TABLET PO (21:40)
[2022-01-16 03:13] VITALS: BP 116/58; PULSE 91; RESP 17; TEMP 36.6; O2SAT 96
[2022-01-16] MEDS: fentaNYL 100 MCG/2 ML VIAL 50 MCG IVP ×2 (03:38→05:46)
[2022-01-16] MEDS: Levothyroxine 75 MCG TAB PO (05:46)
[2022-01-16 06:21] LABS: HCT 28.9 % (36.0-46.0); HGB 9.3 g/dL (11.2-15.7)
[2022-01-16 06:38] LABS: Anion Gap 7.4 mmol/L (3-11); BUN 31 mg/dL (7-18); CO2 31.6 mmol/L (21.0-32.0); CREATININE 2.2 mg/dL (0.55-1.02); Calcium 8.9 mg/dL (8.5-10.1); Chloride 102 mmol/L (98-107); Estimated GFR 22.67 (mL/min/1.73m2); Glucose 96 mg/dL (74-106); Potassium 3.6 mmol/L (3.5-5.1); Sodium 141 mmol/L (136-145)
[2022-01-16 07:11] VITALS: BP 124/74; PULSE 92; RESP 18; TEMP 36.4; O2SAT 93
[2022-01-16] MEDS: Tiotropium/Olodaterol 10 PUFF INHALER 2 PUFF IH (07:56)
[2022-01-16] MEDS: Sucralfate 1 GM TAB PO ×4 (08:33→21:26)
[2022-01-16] MEDS: Acetaminophen 500 MG TAB PO ×3 (08:33→19:53)
[2022-01-16] MEDS: Losartan 50 MG TAB 100 MG PO (08:34)
[2022-01-16] MEDS: Isosorbide Mononitrate 30 MG TABCR 60 MG PO (08:35)
[2022-01-16] MEDS: Cholecalciferol (Vitamin D3) 1,000 UNIT TAB 1000 UNITS PO (08:35)
[2022-01-16] MEDS: Dexamethasone 4 MG TAB PO (08:35)
[2022-01-16] MEDS: Celecoxib 200 MG CAP PO ×2 (08:35→19:51)
[2022-01-16] MEDS: Pantoprazole 40 MG TABCR PO ×2 (08:36→19:51)
[2022-01-16] MEDS: Torsemide 20 MG TAB 40 MG PO (08:36)
[2022-01-16] MEDS: Normal Saline Flush 10 ML SYR IV ×2 (08:41→19:50)
--- NOTE | 2022-01-16 09:34 | PT.INTREAT ---
PT Notes Visit Reasons: Bilateral hip DJD Inpatient Physical Therapy Treatment Note [facility] Date: 01/16/22 SUBJECTIVE: Fe states that she is hoping to go home today. She feels ready. Has been compliant with HEP. No problems. Reports moving about her room independently, going to toilet as well as getting herself in/OOB. OBJECTIVE: [] BED MOBILITY/TRANSFERS already in recliner Sit-stand: I Stand-sit: I GAIT Assistive Device: FWW Weight bearing: AT Assist: S Distance: 225' THEREX: seated LE strength and stabilizations. LAQ, hip flex and abd, GS and SQ. She was given HR, standing hip PRE's and SSH. ASSESSMENT: independent with transfers. No safety issues noted. PLAN: will continue to progress her strength and endurance to tolerance following PT POC. TREATMENT CODE/TIME: 20 min. [id number]
[2022-01-16 11:08] VITALS: BP 120/68; PULSE 85; RESP 18; TEMP 36.3; O2SAT 93
[2022-01-16 15:07] VITALS: BP 102/60; PULSE 70; RESP 18; TEMP 36.5; O2SAT 96
--- NOTE | 2022-01-16 15:28 | W.PM.PROGNOT ---
Date of Service Date of service: 01/16/22 Time of Service: 09:00 Assessment and Plan Assessment and plan (1) Avascular necrosis of bone of hip: Status: Acute Assessment and plan: Fe is status post bilateral hip replacements. She is doing very well. She started to mobilize almost independently. She is requiring minimal assistance and I encouraged her to continue to work on independent mobilization within the room so she may be likely discharged to home with home health services. She will continue to work with nursing today and then physical therapy in the morning with hopeful discharge tomorrow pending labs. (2) Acute postoperative anemia due to expected blood loss: Status: Acute Assessment and plan: Appropriate drop in hemoglobin status post bilateral hip replacements. Stable this morning with hemoglobin of 9.3. (3) Acute kidney injury superimposed on chronic kidney disease: Status: Acute Assessment and plan: Slight worsening of kidney function this morning with a creatinine bump to 2.2. Her baseline usually is in the mid to upper 1 and therefore not drastically off of her normal from her chronic failure. However, will check creatinine in the morning to make sure its not continuing to worsen. If it does worsen then we will need to discontinue Celebrex, potentially redosed the rivaroxaban, and hydrate to see if we can normalize her kidney function before discharge home. Subjective Subjective Interval history since last seen: Fe reports to be doing well. She has been able to get out of the bed with minimal assistance. She is feeling better about her hips each day. She does report crampy sensation which is where most of her pain is coming from. She no longer is having sharper pain within the pelvis or hips. She reports some numbness posterior to the incision but none down the leg. Exam Narrative Exam Narrative: Sitting up in the chair. No acute distress. Alert and orient x3. Bilateral hips show some mild ecchymosis around the incision sites but dressings are clean dry and intact. Decree sensation posterior to the incision but no decree sensation over the lateral from cutaneous nerve. She is able to actively dorsiflex and plantarflex as well as bennie both ankles as well as extend both knees. 2+ pitting edema in the legs, appears similar to baseline. Objective Laboratory Results - last 24 hr 01/16/22 01/16/22 05:30 05:30 Hgb 9.3 L Hct 28.9 L Sodium 141 Potassium 3.6 Chloride 102 Carbon Dioxide 31.6 Anion Gap 7.4 BUN 31 H Creatinine 2.2 H Est GFR (CKD-EPI 2020) 22.67 Glucose 96 Calcium 8.9
[2022-01-16 19:00] VITALS: BP 93/61; PULSE 76; RESP 17; TEMP 37; O2SAT 93
[2022-01-16] MEDS: rOPINIRole 1 MG TAB 2 MG PO (19:51)
[2022-01-16] MEDS: Rivaroxaban 10 MG TABLET PO (21:26)
[2022-01-16] MEDS: Sertraline 50 MG TAB PO (21:26)
[2022-01-16] MEDS: Gabapentin 300 MG CAP 600 MG PO (21:26)
[2022-01-16 23:52] VITALS: BP 107/67; PULSE 70; RESP 14; TEMP 35.9; O2SAT 97
[2022-01-17 03:31] VITALS: BP 132/79; PULSE 68; RESP 14; TEMP 36.2; O2SAT 92
[2022-01-17] MEDS: Levothyroxine 75 MCG TAB PO (06:45)
[2022-01-17] MEDS: Pantoprazole 40 MG TABCR PO (06:45)
[2022-01-17 06:54] LABS: Anion Gap 5.8 mmol/L (3-11); BUN 34 mg/dL (7-18); CO2 31.2 mmol/L (21.0-32.0); CREATININE 1.9 mg/dL (0.55-1.02); Chloride 102 mmol/L (98-107); Estimated GFR 27.03 (mL/min/1.73m2); Glucose 104 mg/dL (74-106); Potassium 3.8 mmol/L (3.5-5.1); Sodium 139 mmol/L (136-145)
[2022-01-17] MEDS: Cholecalciferol (Vitamin D3) 1,000 UNIT TAB 1000 UNITS PO (07:55)
[2022-01-17] MEDS: Losartan 50 MG TAB 100 MG PO (07:55)
[2022-01-17] MEDS: Isosorbide Mononitrate 30 MG TABCR 60 MG PO (07:56)
[2022-01-17] MEDS: Acetaminophen 500 MG TAB PO ×2 (07:56→13:28)
[2022-01-17] MEDS: Sucralfate 1 GM TAB PO ×2 (07:56→11:29)
[2022-01-17] MEDS: Torsemide 20 MG TAB 40 MG PO (07:56)
[2022-01-17 08:06] VITALS: BP 127/66; PULSE 77; RESP 18; TEMP 36; O2SAT 92
[2022-01-17] MEDS: Tiotropium/Olodaterol 10 PUFF INHALER 2 PUFF IH (08:09)
--- NOTE | 2022-01-17 08:58 | PDOC.CMPRO ---
- If Service Date Differs Date of service: 01/17/22 Time of Service: 08:58 Care Management Progress Note S/O: Fe's discharge home was delayed, per Dr. Bartholomew Fe requires additional hydration to see if her kidney function can be normalized before discharge home. A: 76 year old female admitted to [facility] for Bilateral hip DJD. P: Fe will likely be discharged home with new Home Health RN and PT services. She will follow up with her PCP, orthopedic surgeon and plan of care as prescribed. She will be transported home by her sister via private vehicle when ready. CM will continue to follow.
--- NOTE | 2022-01-17 09:08 | PT.INTREAT ---
Date of service: 01/17/22 Time of Service: 08:40 PT Notes Visit Reasons: Bilateral hip DJD Inpatient Physical Therapy Treatment Note [facility] Date: 01/17/2022 PRECAUTIONS: WBAT B, activity as tolerated SUBJECTIVE: Fe is pleasant and agreeable to participating in PT. She reports that she is feeling much better and hopes to go home. She reports that she has been transferring and ambulating independently within her room, and feels she is doing well with that. OBJECTIVE: PAIN: Patient c/o discomfort in B anterior thigh with seated marching exercise BED MOBILITY/TRANSFERS Supine-sit: I with HOB flat Sit-supine: I with HOB flat Sit-stand: I Stand-sit: I Bed-Chair: I Chair-bed: I GAIT Assistive Device: FWW Weight bearing: WBAT B Assist: I Distance: 200' Deviation: None THEREX: Patient was instructed in a LE strengthening and stabilization program, completed in both seated and standing positions, to include: ankle pumps, quad sets, glute sets, LAQ, hip abduction and seated marching. STAIRS: Patient declines the need to practice stair training again at this point. ASSESSMENT: Patient tolerated session well with minimal complaint of B anterior thigh discomfort with seated marching exercise. She demonstrates independence with transfers and ambulation with FWW at this time. PLAN: Patient cleared to be independent with transfers and ambulation with FWW at this time. Patient no longer requires inpatient PT services. TREATMENT CODE/TIME: 30 minutes; 28226, 60093 (08:40)
[2022-01-17 11:06] VITALS: BP 108/71; PULSE 72; RESP 18; TEMP 36; O2SAT 96
--- NOTE | 2022-01-17 16:21 | CMDISCH_ITS ---
- If Service Date Differs Date of service: 01/17/22 Time of Service: 13:00 LACE Index Scoring Tool - Questions: Length of Stay (in days): 2 Acuity (Admit via E.D.?): No Comorbidities: Liver or Renal Disease E.D. Visits: 2 - Answers: Total Score: 9 Risk of Readmission: Low Risk Care Management Discharge Reason for Hospitalization: Bilateral hip DJD. Discharge Plan: Fe is discharged home via private vehicle with family. New [facility] PT services are ordered. New RX's are transmitted to [facility]. Fe will follow her discharge plan of care as prescribed and follow up with Dr. Bartholomew on 01/28/22 at 11:00am, as scheduled. Patient/Family Education Needs: Review discharge instructions, limitations, medications and plan to follow up with community providers. Review ask me three. Services Needed at Discharge: Home Health Care Services ([facility] PT services, CM notified agency.)
--- NOTE | 2022-01-18 08:17 | INDS_ITS ---
PT Notes Visit Reasons: Bilateral hip DJD Inpatient Physical Therapy Discharge Summary Treatment Dates: 01/15/2022 - 01/17/22 Referring Doctor: Guanako Bartholomew DATE OF PROCEDURE: 01/14/22 PRE-OP DIAGNOSIS: Bilateral Hip Osteoarthritis POST-OP DIAGNOSIS: same PROCEDURE: Bilateral Anterior Total Hip Arthroplasty with Intraoperative Navigation SURGEON: Guanako Bartholomew MACHINE OPERATOR ASSISTANT: Cyndi Gillis PT Orders: PT CONSULT: WBAT This document serves as a summary of care. No PT services were provided on this date. Patient Profile/Admitting Diagnosis: Pt. is a 76 yo female, s/p Bilateral Anterior Total Hip Arthroplasty 01/14/2022. She participated in 3 PT sessions over the course of 3 days, with improvements in safety and mobility sufficient to allow for safe return home. Social History/Home Situation: Lives alone in senior housing 1 floor living. Needs stepstool to get into bed 2 inch, 4 inch with arm hold. Current Functional Limitations: Needs walker for ambulation. Needs stepstool to get in and out of bed. Needs headboard at home to be able to go supine to sit in bed. In hospital utilizes head elevation to go supine to sit. Equipment Owned/DME: Rolling walker. Unable to find walker the patient had from home in surgical day has green sliders on the back feet. Subjective: none obtained Objective: ROM: Right Upper Extremity: WNL Left Upper Extremity: WNL Right Lower Extremity: WNL, 95 hip flexion Left Lower Extremity: WNL, 95 hip flexion Strength: Right Upper Extremity: WFL Left Upper Extremity: WFL Right Lower Extremity: Q4/5 H 4/5 DF 5/5 hip flexion 3/5 Left Lower Extremity:Q4/5 H 4/5 DF 5/5 hip flexion 3/5 BED MOBILITY/TRANSFERS? Supine-sit: I with HOB flat? Sit-supine: I with HOB flat ? Sit-stand: I? Stand-sit: I ? Bed-Chair: I ? Chair-bed: I ? GAIT? Assistive Device: FWW? Weight bearing: WBAT B Assist: I ? Distance:? 200' ? Deviation: None ? ? Balance: Static Sitting: Good Dynamic Sitting: Good Static Standing: Good at walker if needed Dynamic Standing: Fair Assessment: Patient is a 76 year old female referred to physical therapy services with the diagnosis of s/p Bilateral Anterior Total Hip Qumcvczzkprs03/7/2022. She participated in 3 PT sessions over the course of 3 days, with improvements in safety and mobility sufficient to allow for safe return home. Appropriate for d/c from PT in acute care setting with recommendation for further PT intervention via HH services. Goals: Goals X1 week 1. Supine-Sit I (MET) 2. Sit-Supine I(MET) 3. Sit-Stand I(MET) 4. Stand-Sit I(MET) 5. Bed-Chair I(MET) 6. Chair-Bed I(MET) 7. Gait I WITH RW(MET) 8. Stairs with 2 rails I (not assessed- patient declines) 9. Independent with home exercise program (MET) 10. Balance good dynamic standing(MET) Plan of Care/Treatment Plan: DISCHARGE RECOMMENDATIONS: D/C from PT in acute care setting with recommendation for further PT intervention via services. TREATMENT CODE/TIME: none Cintia Vivas, PT, DPT [facility]
--- NOTE | 2022-01-25 09:50 | PT.INDS ---
PT Notes Visit Reasons: Bilateral hip DJD Inpatient Physical Therapy Evaluation Date: 01/15/2022 Referring Doctor: Guanako Bartholomew DATE OF PROCEDURE: 01/14/22 PRE-OP DIAGNOSIS: Bilateral Hip Osteoarthritis POST-OP DIAGNOSIS: same PROCEDURE: Bilateral Anterior Total Hip Arthroplasty with Intraoperative Navigation SURGEON: Guanako Bartholomew BINDING MACHINE OPERATOR: Cyndi Gillis PT Orders: PT CONSULT: WBAT Precautions: standard, WBAT Patient Profile/Admitting Diagnosis:?Pt. is a 76 yo female, s/p??Bilateral Anterior Total Hip Arthroplasty 01/14/2022, Pt was still in surgery as of 2:45 01/14/2022 thus admitted overnight. PMHX:?All Active Problems?(Updated 11/26/21 @ 09:07 by Mariajose Cuenca DO) S/p bilateral RACHEL 01/14/2022 Bilateral groin pain (Acute) Inguinal Ligament Pain & Stiffness .. becomes hard, like a boneHip osteoarthritis (Acute) Sacroiliac dysfunction (Acute) 08/23/21 [facility] Pain and spine noteDisplacement of lumbar intervertebral disc (Acute) 08/23/21 [facility] Pain and spine noteLumbar stenosis (Chronic) with lumbosacral radiculopathy per Pain ClinicPelvic somatic dysfunction (Acute) Per PMR/Spine ... severe pain of SI Joint, Lower Back, Buttocks.Pelvic floor dysfunction (Acute) Presumed, [ ] P.PTBack pain (Acute) Weakness (Acute) Bilateral edema of lower extremity (Acute) Adult failure to thrive (Acute) Chronic pain of both lower extremities (Acute) Breath shortness (Acute) CHF (congestive heart failure) (Chronic) mild-mod per new cardio eval (not as severe as originally thought)(not responsible for degree of edema observed, 09/2021)Edema due to congestive heart failure (Chronic) Doubting CHF as full reason for edema (New Cardio, 09/2021).Acute on chronic, presumed CHF.. following diuresis per Dr. Perez direction, 06/2021.Nodule of spleen (Acute) Dyspnea on exertion (Acute) Coronary artery disease involving wilton coronary artery of wilton heart without angina pectoris (Acute) Bilateral groin pain (Chronic) & buttock .. see PMR note, 08/2021.JOSTIN (acute kidney injury) (Acute) Cr 1.7 vs 1.5, 09/03/21 .. complicating diuresis.Chronic renal insufficiency, stage II (mild) (Chronic) Mild-Mod CKD G3a (GFR 48, 08/2020).Hiatal hernia (Chronic) General/Bariatric Surgery on HOLD 2' CHF, Hip Pain. Widened retrocardiac hiatal hernia, 7cm x 5cm AP. Larger than 2013..Hx GERD, with possible new symptoms (12/2020). Surgery?Osteoarthritis of hips, bilateral (Acute 06/03/21) [facility] xrayAbnormal chest CT (Acute) [facility] 06/03/21:? Recommendations to be discussed w/ pt; 1.? F/u imaging of enlarged subcarinal node 3-6mo. 2.? Correlating mammography or breast u/s for breast nodules (non-emergent). 3.? Dedicated imaging for indeterminate splenic lesion. 4.? Repeat Chest CT Q12mo to f/u on nodules bi-lat.Lung nodule < 6cm on CT (Acute) 4mm, per 12/2020 CT (new since 2012).. 6 mo FU [ ]Shrinking lung syndrome (Acute) Restrictive lung disease (Acute) PFT, 01/2021 (Spirometry: Muscle pressures are decreased.. diffusion [capacity] reduced.. Airway resistance normal...Possible mild restrictive lung disease with decreased muscle pressures and a reduced diffusion. (compared to 02/23/2012, total lung capacity & diffusion is reduced .. Clinical Correlation (?) ikSjogren's disease (Chronic) GERD (gastroesophageal reflux disease) (Chronic) Tubular adenoma of colon (Chronic 04/25/16) Prediabetes (Acute) A1C 5.8Hypothyroidism (Chronic) Medical History? Abnormal finding on imaging CT (Lung Ca Screen), 12/2020: Increased markings, 4mm RLL nodule, Dec volume, widened hiatal hernia.Achilles tendonitis Left, with plantar fasciitisAcute nonintractable headache Anterior epistaxis BPPV (benign paroxysmal positional vertigo) Chronic antral gastritis Chronic pain Diastolic dysfunction New Cardio disagrees, 09/2021. Per Cardio (Chris), 09/2018 ... June 29, 2010: LVEDP 23 mm mercury. January 31, 2000. LVEDP 7 mm mercury, rising to 21 mm mercury after 1 L normal saline over 10 minutes. Wedge pressure 19 mm mercury .. mild pulmonary hypertension on right heart catheterization (40-45 MmHG). Hx recurrent pericarditis/ pericardial effusion, Sjogren's syndrome.Dysphagia Edema of thigh resolved with [facility] admission/careFatigue severe, sudden onset, napped x hours this week (2' fluconazole?)Femoroacetabular impingement of both hips Former smoker Quit 05/2009Herpes simplex Hip effusion, right Aspirated, Ortho, 06/2021Hyperlipidemia (07/23/12) Hx declining statin?Increased BMI (body mass index) (05/11/17) Morbid obesity per [facility] Gen Surge 04/21/21 noteLeft carpal tunnel syndrome Lichen sclerosus et atrophicus Halbetasol per [facility], 01/2021. (2019. Patient advised to begin topical steroid to vulva)Lipoma of left upper extremity Localized osteoarthritis of right knee Low back pain Neoplasm of uncertain behavior of skin (05/15/14) Left forehead, status post excision with primary closure. Seborrheic keratosis by final pathology. 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No intervention planned).. 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 Perez on 01/06/20 Posterior tibial tendon dysfunction, left Restless leg syndrome Screening mammography declined 12/2020 EOSevere obstructive sleep apnea 06/13/21 Sleep study noteSevere right groin pain x 2 weeks, with Hx low grade discomfort x months. Hx UrSling. Rt thigh pain described.Shortness of breath Sialoadenitis (10/31/13) Skin lesion of neck Snoring Stopped smoking with greater than 40 pack year history Strain of muscle of right groin region Tobacco dependence Unilateral primary osteoarthritis, left knee Surgical History? Abdominal hysterectomy ENDOMETRIOSIS; ONE OVARY REMAINSColonoscopy - IV Sedation (04/25/16) History of ankle surgery hardware presentHistory of arthroplasty of finger of left hand History of bunionectomy of both great toes History of carpal tunnel surgery of left wrist History of colpocleisis History of suburethral sling procedure 12/18/18 Vaginectomy/colpocleisis with Posterior colporrhapy and transobturator mid urethral sling at [facility] Hx of appendectomy Hx of thumb surgery Prolapse of female pelvic organs Stage III post hysterectomy vaginal prolapse with stress incontinence. Rx at [facility] 12/18/18. Status post abdominal hysterectomy Status post tonsillectomy 2018?Tonsillectomy Social History/Home Situation: Lives alone in senior housing 1 floor living.? Needs stepstool to get into bed 2 inch, 4 inch with arm hold.? Current Functional Limitations: Needs walker for ambulation.? Needs stepstool to get in and out of bed.? Needs headboard at home to be able to go supine to sit in bed.? In hospital utilizes head elevation to go supine to sit. Equipment Owned/DME: Rolling walker.? Unable to find walker the patient had from home in surgical day has green sliders on the back feet. Subjective:?The doctor said that I will be going home on Monday and I will be getting home services.? I cannot believe how much better I feel postoperatively than he did preoperatively and felt Objective:? General Observation: Patient appears comfortable, sitting up in bed with Daniels no IV. Mental Status: A&O x3 pleasant and cooperative Pain: 2/10 Vital Signs: NT ROM: Right Upper Extremity: WNL Left Upper Extremity: WNL Right Lower Extremity: WNL, 95 hip flexion Left Lower Extremity: WNL, 95 hip flexion Strength: Right Upper Extremity: WFL Left Upper Extremity: WFL Right Lower Extremity: Q4/5? H 4/5 DF 5/5 hip flexion 3/5 Left Lower Extremity:Q4/5? H 4/5 DF 5/5 hip flexion 3/5 Sensation:?LE intact light touch Bed Mobility/Transfers:?Patient needs use of head elevation and hospital bed to be able to go supine to sit, unable to roll side to side status post RACHEL, independent but slow with being able to swing legs to edge of bed.? Able to position at edge of bed independently.? Sit to stand from bed independent, guarded as first time.? Sit to stand and stand to sit to chair with arms from rolling walker independent x4.? Patient reports bed at home is high off the ground she has a 2 inch step onto a 4 inch step with a rail and use of walker to get into bed we perform a 4 inch step up on stairs to mimic this and patient is able to do with assist of 2 rails 1 time each leg. Gait:?Ambulation with rolling walker with supervision 4 x 10 feet including turning. Balance:? Static Sitting: Good Dynamic Sitting: Good Static Standing: Good at walker if needed Dynamic Standing: NT Special Tests: Mobility Limitations Standardized Measure [facility] 6 clicks Basic Mobility Inpatient Short Form: Raw Score: 17? Standardized Score: 42.13? CMS Score: 50.57 ? ? ? Informed Consent/Education:? Patient instructed in purpose of PT consult and plan of care. Assessment:??Patient is a 76? year old female referred to physical therapy services with the diagnosis of s/p Bilateral Anterior Total Hip Wwdrwvomrzcr98/7/2022.? Patient presents with clinical signs and symptoms consistent with Bilateral Anterior Total Hip Osrqgbempzfj31/7/2022 . Pt. lives alone single level living, states there is a small rise in her threshold.? States she has no assistance.? We are unable to locate her RW with green sliders on rear left in surgical day.? She reports having step up and down into her bed at home and potential difficulty getting supine to sit at home based on clinical exam today.? She is doing well with transfers from sit to stand and stand to sit into both bed and chair within the hospital.? She ambulates with rolling walker with supervision and performs well with verbal cueing to bend her knees but appears safe and stable.? Patient will benefit from skilled physical therapy to progress lower extremity strength, improve ability to transfer on and off the bed and from supine to sit and sit to supine while in hospital.? Patient also issued exercise program to be performed every hour of quad sets, glutes squeezes, pelvic tilts, ankle pumps.? Also to perform if sitting leg extensions, heel toe raises, standing small range hip abduction.? Handout issued to patient at bedside.? Patient should have skilled physical therapy with [facility] while in hospital to improve ability to transfer and promote independence once at home.? Once discharged it would be beneficial for her to have home health to perform home assessment especially transfer in and out of her bed at home. Patient is assessed as a? Low 67304? complexity based on the following: Goals: Goals X1 week 1. Supine-Sit I 2. Sit-Supine I 3. Sit-Stand I 4. Stand-Sit I 5. Bed-Chair I 6. Chair-Bed I 7. Gait I WITH RW 8. Stairs with 2 rails I 9. Independent with home exercise program 10. Balance good dynamic standing Plan of Care/Treatment Plan: 1-2x/day, 7 days/week x 1 week. Plan of care has been reviewed with the [facility] providing the service under Physical Therapy direction. Initiate Physical Therapy intervention for strengthening, bed mobility, transfers, gait, stairs, balance training, use of assistive device. DISCHARGE RECOMMENDATIONS: ? ?? Home with services , PT for home assessment, bed mobility TREATMENT CODE/TIME: 68523, [id number], [id number]
== END 2022-01-17 14:32 | disposition home health service (06) | DRG 462 ==
LOC: PDS 12:11 → MS 16:30
PROVIDERS: Admitting Provider Student in an Organized Health Care Education/Training Program; PCP Student in an Organized Health Care Education/Training Program; Visit Provider Student in an Organized Health Care Education/Training Program
PROC: 0SR90JZ Replacement of Right Hip Joint with Synthetic Substitute, Open Approach (ICD-10-PCS; CPT 27130; principal; 2022-01-14 11:45)
DX: M16.0 Bilateral primary osteoarthritis of hip (principal); M87.051 Idiopathic aseptic necrosis of right femur; Z68.41 Body mass index [BMI] 40.0-44.9, adult; D62 Acute posthemorrhagic anemia; N17.9 Acute kidney failure, unspecified; M87.852 Other osteonecrosis, left femur; M87.851 Other osteonecrosis, right femur; R73.03 Prediabetes; E03.9 Hypothyroidism, unspecified; K21.9 Gastro-esophageal reflux disease without esophagitis; M35.00 Sjogren syndrome, unspecified; M53.3 Sacrococcygeal disorders, not elsewhere classified; M54.9 Dorsalgia, unspecified; I50.9 Heart failure, unspecified; I25.10 Atherosclerotic heart disease of native coronary artery without angina pectoris; N18.2 Chronic kidney disease, stage 2 (mild); M48.061 Spinal stenosis, lumbar region without neurogenic claudication; Z87.891 Personal history of nicotine dependence; E78.5 Hyperlipidemia, unspecified; E66.01 Morbid (severe) obesity due to excess calories; I77.9 Disorder of arteries and arterioles, unspecified; G47.33 Obstructive sleep apnea (adult) (pediatric); K44.9 Diaphragmatic hernia without obstruction or gangrene; J98.4 Other disorders of lung; M87.052 Idiopathic aseptic necrosis of left femur
CPT/HCPCS: 27130; 20985; C1776; 36415; 80048; 85027; 87635; 94640; 97110; 97530; 73501; 85014; 85018; J0690; J1100; J2250; J2370; J2405; J2704; J3010; J8540

== ENCOUNTER 2022-01-28 11:36 | Outpatient (CLI) | payer MEDICARE, SELFPAY ==
--- NOTE | 2022-01-28 11:00 | DI.RAD_ITS ---
Exam(s) XR HIP RT 1V EXAM: XR HIP RT 1V CLINICAL HISTORY: s/p rtha. TECHNIQUE: 2D digital imaging was performed. COMPARISON: CR XR HIP LT COMPLETE AP PELVIS from 01/28/2022 FINDINGS: Single lateral view of the right hip Satisfactory position alignment of the components of the right hip prosthesis no evidence of fracture or loosening. IMPRESSION: DATA REPOSITORY: RADIATION DOSE DELIVERED:
--- NOTE | 2022-01-28 11:00 | DI.RAD_ITS ---
Exam(s) XR HIP LT COMPLETE AP PELVIS EXAM: XR HIP LT COMPLETE AP PELVIS CLINICAL HISTORY: f/u RACHEL. TECHNIQUE: 2D digital imaging was performed. COMPARISON: CR XR HIP PELVIS ADULT BL from 11/23/2021 FINDINGS: Two views: There are now bilateral hip prostheses which appear to be in satisfactory position alignment. Additi onal lateral view the left hip reveals no hardware loosening. No radiographic evidence osteomyelitis . IMPRESSION: Bilateral hip prosthesis which appears satisfactory. DATA REPOSITORY: RADIATION DOSE DELIVERED:
== END 2022-01-28 11:37 | disposition home or self-care (01) ==
LOC: DIORS 11:36
PROVIDERS: PCP Student in an Organized Health Care Education/Training Program; Referring Provider Student in an Organized Health Care Education/Training Program; Visit Provider Student in an Organized Health Care Education/Training Program
DX: Z47.1 Aftercare following joint replacement surgery; Z96.643 Presence of artificial hip joint, bilateral
CPT/HCPCS: 73501; 73502

== ENCOUNTER 2022-02-03 03:50 | Outpatient (CLI) | payer MEDICARE, SELFPAY ==
[2022-02-03 14:01] LABS: Abs Immature Grans 0.01 10^3/uL (0.0-0.06); Absolute Basophil Count 0.04 10^3/uL (0.0-0.2); Absolute Eosinophil Count 0.45 10^3/uL (0.0-0.7); Absolute Lymphocyte Count 2.09 10^3/uL (1.2-3.4); Absolute Monocyte Count 0.78 10^3/uL (0.1-0.8); Absolute Neutrophil Count 3.19 10^3/uL (1.2-6.7); Basophils % 0.6; Eosinophils % 6.9; HCT 33.1 % (36.0-46.0); HGB 10.6 g/dL (11.2-15.7); Immature Grans % 0.2; Lymphocytes % 31.9; MCH 29.4 pg (27.0-33.0); MCV 92 fL (80-95); MPV 8.8 fL (8.0-11.0); Monocytes % 11.9; Neutrophils % 48.5; Platelet Count 324 10^3/uL (130-400); RBC 3.61 10^6/uL (3.93-5.22); RDW 13.8 % (11.7-14.6); RDW-SD 46.5 fL; WBC 6.56 10^3/uL (4.4-10.8)
[2022-02-03 14:30] LABS: Anion Gap 6.4 mmol/L (3-11); BUN 16 mg/dL (7-18); CO2 30.6 mmol/L (21.0-32.0); CREATININE 1.4 mg/dL (0.55-1.02); Calcium 9.6 mg/dL (8.5-10.1); Chloride 105 mmol/L (98-107); Estimated GFR 38.99 (mL/min/1.73m2); Glucose 105 mg/dL (74-106); Potassium 3.5 mmol/L (3.5-5.1); Sodium 142 mmol/L (136-145)
== END 2022-02-03 03:51 | disposition home or self-care (01) ==
PROVIDERS: PCP Student in an Organized Health Care Education/Training Program; Visit Provider Student in an Organized Health Care Education/Training Program
DX: D62 Acute posthemorrhagic anemia (principal); N17.9 Acute kidney failure, unspecified; N18.9 Chronic kidney disease, unspecified
CPT/HCPCS: 36415; 80048; 85025

== ENCOUNTER 2022-02-05 10:45 | Emergency (ER) | payer MEDICARE, SELFPAY ==
[2022-02-05 10:47] VITALS: BP 159/88; PULSE 82; RESP 18; TEMP 37; O2SAT 99
[2022-02-05 10:54] VITALS: RESP 17
[2022-02-05 11:44] LABS: Abs Immature Grans 0.01 10^3/uL (0.0-0.06); Absolute Basophil Count 0.05 10^3/uL (0.0-0.2); Absolute Eosinophil Count 0.48 10^3/uL (0.0-0.7); Absolute Lymphocyte Count 2.38 10^3/uL (1.2-3.4); Absolute Monocyte Count 0.61 10^3/uL (0.1-0.8); Absolute Neutrophil Count 3.22 10^3/uL (1.2-6.7); Basophils % 0.7; Eosinophils % 7.1; HCT 31.9 % (36.0-46.0); Immature Grans % 0.1; Lymphocytes % 35.3; MCH 29.5 pg (27.0-33.0); MCHC 31.3 % (32.0-36.0); MCV 94 fL (80-95); MPV 8.6 fL (8.0-11.0); Neutrophils % 47.8; Platelet Count 287 10^3/uL (130-400); RBC 3.39 10^6/uL (3.93-5.22); RDW 13.6 % (11.7-14.6); RDW-SD 46.7 fL; WBC 6.75 10^3/uL (4.4-10.8)
[2022-02-05 12:08] LABS: ALT 16 U/L (14-59); AST 13 U/L (15-37); Albumin 3.7 g/dL (3.4-5.0); Alkaline Phosphatase 99 U/L (46-116); Anion Gap 7.8 mmol/L (3-11); BUN 14 mg/dL (7-18); Bilirubin, Total 0.3 mg/dL (0.2-1.0); CO2 28.2 mmol/L (21.0-32.0); CREATININE 1.3 mg/dL (0.55-1.02); Calcium 9.4 mg/dL (8.5-10.1); Chloride 106 mmol/L (98-107); Estimated GFR 42.62 (mL/min/1.73m2); Glucose 90 mg/dL (74-106); Potassium 3.8 mmol/L (3.5-5.1); Sodium 142 mmol/L (136-145); Total Protein 7.7 g/dL (6.4-8.2)
--- NOTE | 2022-02-05 12:39 | ED.GENADUL_ITS ---
Discharge Plan Disposition Patient Disposition: HOME Condition: Stable Discharge Details Clinical Impression: Surgical site infection Primary Care Provider: Mariajose Cuenca ED Provider: Reji Cochran Home Meds and New Rx's Prescriptions: New cephalexin 500 mg tablet 500 mg PO QID 5 Days Qty: 20 0RF Continued nitroglycerin 0.4 mg tablet, sublingual 0.4 mg sublingual Q5M PRN (Reason: chest pain) Qty: 30 1RF Rx Instructions: do not exceed 3 doses per episode halobetasol propionate 0.05 % ointment 1 applic topical BID Qty: 50 4RF Rx Instructions: apply tiny amount to vulvar bid for 2weeks then daily for 2weeks then twice weekly ammonium lactate 12 % cream 1 applic topical BID Qty: 385 1RF Rx Instructions: Trial for dry skin, edema Stiolto Respimat 2.5-2.5 mcg/actuation mist 2 puff inhalation DAILY Qty: 4 5RF spironolactone 25 mg tablet 25 mg PO DAILY Qty: 30 0RF Rx Instructions: Trial for severe edema losartan 100 mg tablet 100 mg PO DAILY Rx Instructions: 09/23/21 started sertraline 50 mg tablet 50 mg PO QHS Qty: 90 3RF Rx Instructions: start with half-tab for 3 days, then increase to 1tab (50mg) daily. vitamin B complex [B Complex-Vitamin B12] Tablet 1 tab PO DAILY levothyroxine 75 mcg tablet 75 mcg PO DAILY Qty: 90 1RF isosorbide mononitrate 30 mg tablet extended release 24 hr 60 mg PO DAILY Qty: 180 3RF cholecalciferol (vitamin D3) [Vitamin D3] 2,000 UNIT capsule 2,000 unit PO DAILY Label Comments: 01/18/17-now takes 5000U/pps meclizine 25 mg tablet 12.5 - 25 mg PO TID PRN (Reason: dizziness) Qty: 30 4RF docusate sodium [Colace] 100 mg capsule 100 mg PO BID polyethylene glycol 3350 [Miralax] 17 gram/dose powder 17 g PO BID PRN (Reason: constipation) Qty: 510 0RF ropinirole 2 mg tablet 2 mg PO QHS Qty: 90 3RF Rx Instructions: administer 1-3 hours before bedtime pantoprazole 40 mg tablet,delayed release (DR/EC) 40 mg PO BID Qty: 60 2RF torsemide 20 mg tablet 40 mg PO DAILY MDD 60mg Qty: 180 3RF sucralfate 100 mg/mL suspension 10 ml PO QACHS Qty: 420 1RF Rx Instructions: Continue for break-through reflux hydrocodone-acetaminophen 5-325 mg tablet 1 tab PO Q4H PRN MDD 15mg hydrocodone PRN (Reason: severe pain (scale score 7-10)) Qty: 15 0RF fluorometholone 0.1 % drops,suspension 1 drp ophthalmic (eye) BID Label Comments: INSTILL 1 DROP INTO BOTH EYES TWICE A DAY DIRECTED FOR 2 WEEKS THEN STOP celecoxib 200 mg capsule 200 mg PO DAILY Qty: 30 1RF acetaminophen 500 mg tablet 500 mg PO Q6H PRN PRN (Reason: pain) Qty: 40 3RF rivaroxaban 10 mg tablet 10 mg PO QPM Qty: 30 0RF Discharge Instructions Instructions: Wound Infection (ED) Additional Instructions: Continue to monitor sites and if you notice any severe worsening of symptoms return immediately to the emergency department for reassessment. Otherwise follow-up with orthopedics on Monday for further reassessment and monitoring as needed. Referrals: [facility] [Provider Group] Discharge Data Discharge Date/Time-TO BE ENTERED AT DEPARTURE: 02/05/22 12:55 Medical Decision Making Patient presenting to the emergency department for evaluation of surgical wounds. She states her right incision on the anterior hip is slightly sore and red but doing okay but the left one has opened up significantly more and having drainage. She states subjective fever and chills and malaise for the past week but denies any other symptoms physical exam shows very slight redness at the anterior aspect of the right anterior hip incision site the left 1 does have slight dehiscence at the superior aspect of the incision with some drainage noted but no severe surrounding cellulitis no palpable fluctuance and slight induration around the site with tenderness. Exam is otherwise unremarkable. We will plan on checking labs and patient denies any need for pain medication at this time. Labs were reviewed and show a chronic ongoing anemia but improved from labs that were performed a couple days ago, no significant leukocytosis or shift. I feel this is reassuring so patient will be discharged on Keflex to cover for surgical site dehiscence with possible infection and encouraged to call orthopedics on Monday which she was supposed to do yesterday for follow-up purposes anyways. After discussion of diagnosis and plan of care patient has no further needs, questions, or concerns and states clear understanding to return to the emergency department for any worsening symptoms. This documentation was generated using [employer] dictation system, please disregard any oddities of phrase or misspellings. Lab Data Lab results reviewed: Yes I reviewed the patient's lab results. HPI General Mode of arrival: ambulatory . Date/Time Provider Initiated Documentation: 02/05/22 10:56 . Limitations to Documentation: no limitations . Information obtained by: patient and RN notes reviewed . History of Present Illness 76 year old F presents to the emergency department with the chief complaint of Postop wound infection, described as moderate, with intensity rated at 4. and is localized to the lower extremity. Patient started experiencing this day(s) (2) and it has been constant. No relieving factors improve symptom(s), No exacerbating factors reported . Patient did receive the following treatments prior to arrival, none Related Data Home Medications Medication Instructions Recorded Confirmed cholecalciferol (vitamin D3) 50 2,000 unit PO DAILY 07/01/15 02/05/22 mcg (2,000 unit) capsule (Vitamin D3) meclizine 25 mg tablet 12.5 - 25 mg PO TID PRN dizziness 06/16/20 02/05/22 #30 tabs nitroglycerin 0.4 mg sublingual 0.4 mg sublingual Q5M PRN chest 12/12/20 02/05/22 tablet pain #30 tabs halobetasol propionate 0.05 % 1 applic topical BID #50 grams 01/05/21 02/05/22 topical ointment tiotropium 2.5 mcg-olodaterol 2.5 2 puff inhalation DAILY #4 grams 07/12/21 02/05/22 mcg/actuation mist for inhalation (Stiolto Respimat) ammonium lactate 12 % topical cream 1 applic topical BID #385 grams 07/15/21 02/05/22 spironolactone 25 mg tablet 25 mg PO DAILY #30 tabs 09/03/21 02/05/22 docusate sodium 100 mg capsule 100 mg PO BID 09/15/21 02/05/22 (Colace) polyethylene glycol 3350 17 17 g PO BID PRN constipation #510 09/15/21 02/05/22 gram/dose oral powder (Miralax) grams losartan 100 mg tablet 100 mg PO DAILY 09/24/21 02/05/22 sertraline 50 mg tablet 50 mg PO QHS #90 tabs 09/24/21 02/05/22 vitamin B complex (B 1 tab PO DAILY 10/26/21 02/05/22 Complex-Vitamin B12 tablet) isosorbide mononitrate 30 mg 60 mg PO DAILY #180 tab-caps 10/27/21 02/05/22 tablet,extended release 24 hr levothyroxine 75 mcg tablet 75 mcg PO DAILY #90 tabs 10/27/21 02/05/22 ropinirole 2 mg tablet 2 mg PO QHS #90 tabs 10/28/21 02/05/22 pantoprazole 40 mg tablet,delayed 40 mg PO BID #60 tabs 10/29/21 02/05/22 release torsemide 20 mg tablet 40 mg PO DAILY #180 tabs 11/03/21 02/05/22 fluorometholone 0.1 % eye 1 drp ophthalmic (eye) BID 01/14/22 02/05/22 drops,suspension acetaminophen 500 mg tablet 500 mg PO Q6H PRN PRN pain #40 tabs 01/17/22 02/05/22 celecoxib 200 mg capsule 200 mg PO DAILY #30 caps 01/17/22 02/05/22 rivaroxaban 10 mg tablet 10 mg PO QPM #30 tabs 01/17/22 02/05/22 sucralfate 100 mg/mL oral 10 ml PO QACHS #420 mL 01/20/22 02/05/22 suspension hydrocodone 5 mg-acetaminophen 325 1 tab PO Q4H PRN PRN severe pain 02/04/22 02/05/22 mg tablet (scale score 7-10) #15 tabs cephalexin 500 mg tablet 500 mg PO QID 5 days #20 tabs 02/05/22 Previous Rx's Medication Instructions Recorded meclizine 25 mg tablet 12.5 - 25 mg PO TID PRN dizziness 06/16/20 #30 tabs nitroglycerin 0.4 mg sublingual 0.4 mg sublingual Q5M PRN chest 12/12/20 tablet pain #30 tabs halobetasol propionate 0.05 % 1 applic topical BID #50 grams 01/05/21 topical ointment tiotropium 2.5 mcg-olodaterol 2.5 2 puff inhalation DAILY #4 grams 07/12/21 mcg/actuation mist for inhalation (Stiolto Respimat) ammonium lactate 12 % topical cream 1 applic topical BID #385 grams 07/15/21 spironolactone 25 mg tablet 25 mg PO DAILY #30 tabs 09/03/21 polyethylene glycol 3350 17 17 g PO BID PRN constipation #510 09/15/21 gram/dose oral powder (Miralax) grams sertraline 50 mg tablet 50 mg PO QHS #90 tabs 09/24/21 isosorbide mononitrate 30 mg 60 mg PO DAILY #180 tab-caps 10/27/21 tablet,extended release 24 hr levothyroxine 75 mcg tablet 75 mcg PO DAILY #90 tabs 10/27/21 ropinirole 2 mg tablet 2 mg PO QHS #90 tabs 10/28/21 pantoprazole 40 mg tablet,delayed 40 mg PO BID #60 tabs 10/29/21 release torsemide 20 mg tablet 40 mg PO DAILY #180 tabs 11/03/21 acetaminophen 500 mg tablet 500 mg PO Q6H PRN PRN pain #40 tabs 01/17/22 celecoxib 200 mg capsule 200 mg PO DAILY #30 caps 01/17/22 rivaroxaban 10 mg tablet 10 mg PO QPM #30 tabs 01/17/22 sucralfate 100 mg/mL oral 10 ml PO QACHS #420 mL 01/20/22 suspension hydrocodone 5 mg-acetaminophen 325 1 tab PO Q4H PRN PRN severe pain 02/04/22 mg tablet (scale score 7-10) #15 tabs cephalexin 500 mg tablet 500 mg PO QID 5 days #20 tabs 02/05/22 Allergies Allergy/AdvReac Type Severity Reaction Status Date / Time codeine Allergy Severe Anaphylaxsi Verified 02/05/22 10:52 s morphine Allergy Severe Anaphylaxsi Verified 02/05/22 10:52 s oxycodone Allergy Severe Anaphylaxsi Verified 02/05/22 10:52 s amoxicillin [From Augmentin] AdvReac Intermediate Hives Verified 02/05/22 10:52 Swelling budesonide AdvReac Intermediate thrush Verified 02/05/22 10:52 clavulanic acid AdvReac Intermediate Hives Verified 10/29/22 10:52 [From Augmentin] Swelling lisinopril AdvReac Intermediate cough Verified 02/05/22 10:52 pentazocine AdvReac Intermediate elevated Verified 02/05/22 10:52 LFT's diphenhydramine AdvReac Mild Benadryl Verified 02/05/22 10:52 [From Benadryl] and Tylenol PM poorly tolerated, wound up. fluconazole AdvReac Mild Nausea Verified 02/05/22 10:52 prednisone AdvReac Mild flu like Verified 02/05/22 10:52 illness varenicline AdvReac Mild I got Verified 02/05/22 10:52 ugly General Stated Complaint: GenMedical TERESA: 3 Review of Systems Narrative: 6 systems reviewed and unremarkable except what is marked below. Constitutional Constitutional: Reports chills and Reports malaise Musculoskeletal Musculoskeletal: Denies arthralgias, Denies joint swelling and Denies limited range of motion Integumentary/Breasts Skin/Breast: Reports as per HPI PFSH All Active Problems (Updated 02/05/22 @ 12:41 by Reji Cochran NP) Surgical site infection (Acute) Status post bilateral total hip replacement (Acute 01/14/22) Acute kidney injury superimposed on chronic kidney disease (Acute) Acute postoperative anemia due to expected blood loss (Acute) Adult BMI 40.0-44.9 kg/sq m (Acute) Bilateral groin pain (Acute) Inguinal Ligament Pain & Stiffness .. becomes hard, like a bone Sacroiliac dysfunction (Acute) 08/23/21 [facility] Pain and spine note Displacement of lumbar intervertebral disc (Acute) 08/23/21 [facility] Pain and spine note Lumbar stenosis (Chronic) with lumbosacral radiculopathy per Pain Clinic Pelvic somatic dysfunction (Acute) Per PMR/Spine ... severe pain of SI Joint, Lower Back, Buttocks. Pelvic floor dysfunction (Acute) Presumed, [ ] P.PT Back pain (Acute) Weakness (Acute) Bilateral edema of lower extremity (Acute) Adult failure to thrive (Acute) Chronic pain of both lower extremities (Acute) Breath shortness (Acute) CHF (congestive heart failure) (Chronic) mild-mod per new cardio eval (not as severe as originally thought)(not responsible for degree of edema observed, 09/2021) Edema due to congestive heart failure (Chronic) Doubting CHF as full reason for edema (New Cardio, 09/2021).Acute on chronic, presumed CHF.. following diuresis per Dr. Perez direction, 06/2021. Nodule of spleen (Acute) Dyspnea on exertion (Acute) Coronary artery disease involving [place] coronary artery of [place] heart without angina pectoris (Acute) Bilateral groin pain (Chronic) & buttock .. see PMR note, 08/2021. JOSTIN (acute kidney injury) (Acute) Cr 1.7 vs 1.5, 09/03/21 .. complicating diuresis. Chronic renal insufficiency, stage II (mild) (Chronic) Mild-Mod CKD G3a (GFR 48, 08/2020). Hiatal hernia (Chronic) General/Bariatric Surgery on HOLD 2' CHF, Hip Pain. Widened retrocardiac hiatal hernia, 7cm x 5cm AP. Larger than 2013..Hx GERD, with possible new symptoms (12/2020). Surgery? Abnormal chest CT (Acute) [facility] 06/03/21: Recommendations to be discussed w/ pt; 1. F/u imaging of enlarged subcarinal node 3-6mo. 2. Correlating mammography or breast u/s for breast nodules (non-emergent). 3. Dedicated imaging for indeterminate splenic lesion. 4. Repeat Chest CT Q12mo to f/u on nodules bi-lat. Lung nodule < 6cm on CT (Acute) 4mm, per 12/2020 CT (new since 2012).. 6 mo FU [ ] Shrinking lung syndrome (Acute) Restrictive lung disease (Acute) PFT, 01/2021 (Spirometry: Muscle pressures are decreased.. diffusion [capacity] reduced.. Airway resistance normal...Possible mild restrictive lung disease with decreased muscle pressures and a reduced diffusion. (compared to 02/23/2012, total lung capacity & diffusion is reduced .. Clinical Correlation (?) ik Sjogren's disease (Chronic) GERD (gastroesophageal reflux disease) (Chronic) Tubular adenoma of colon (Chronic 04/25/16) Prediabetes (Acute) A1C 5.8 Hypothyroidism (Chronic) Medical History Abnormal finding on imaging CT (Lung Ca Screen), 12/2020: Increased markings, 4mm RLL nodule, Dec volume, widened hiatal hernia. Achilles tendonitis Left, with plantar fasciitis Acute nonintractable headache Anterior epistaxis BPPV (benign paroxysmal positional vertigo) Chronic antral gastritis Chronic pain Diastolic dysfunction New Cardio disagrees, 09/2021. Per Cardio (Chris), 09/2018 ... June 29, 2010: LVEDP 23 mm mercury. January 31, 2000. LVEDP 7 mm mercury, rising to 21 mm mercury after 1 L normal saline over 10 minutes. Wedge pressure 19 mm mercury .. mild pulmonary hypertension on right heart catheterization (40-45 MmHG). Hx recurrent pericarditis/ pericardial effusion, Sjogren's syndrome. Dysphagia Edema of thigh resolved with [facility] admission/care Fatigue severe, sudden onset, napped x hours this week (2' fluconazole?) Femoroacetabular impingement of both hips Former smoker Quit 05/2009 Herpes simplex Hip effusion, right Aspirated, Ortho, 06/2021 Hyperlipidemia (07/23/12) Hx declining statin? Increased BMI (body mass index) (05/11/17) Morbid obesity per [facility] Gen Surge 04/21/21 note Left carpal tunnel syndrome Lichen sclerosus et atrophicus Halbetasol per [facility], 01/2021. (2019. Patient advised to begin topical steroid to vulva) Lipoma of left upper extremity Localized osteoarthritis of right knee Low back pain Neoplasm of uncertain behavior of skin (05/15/14) Left forehead, status post excision with primary closure. Seborrheic keratosis by final pathology. 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 TAYLER ([facility]) shows borderline/normal results. 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 Perez on 01/06/20 Posterior tibial tendon dysfunction, left Restless leg syndrome Screening mammography declined 12/2020 EO Severe obstructive sleep apnea 06/13/21 Sleep study note Severe right groin pain x 2 weeks, with Hx low grade discomfort x months. Hx UrSling. Rt thigh pain described. Shortness of breath Sialoadenitis (10/31/13) Skin lesion of neck Snoring Stopped smoking with greater than 40 pack year history Strain of muscle of right groin region Tobacco dependence Unilateral primary osteoarthritis, left knee Surgical History Abdominal hysterectomy ENDOMETRIOSIS; ONE OVARY REMAINS Colonoscopy - IV Sedation (04/25/16) History of ankle surgery hardware present History of arthroplasty of finger of left hand History of bunionectomy of both great toes History of carpal tunnel surgery of left wrist History of colpocleisis History of suburethral sling procedure 12/18/18 Vaginectomy/colpocleisis with Posterior colporrhapy and transobturator mid urethral sling at [facility] Hx of appendectomy Hx of thumb surgery Prolapse of female pelvic organs Stage III post hysterectomy vaginal prolapse with stress incontinence. Rx at [facility] 12/18/18. Status post abdominal hysterectomy Status post tonsillectomy 2018? Tonsillectomy Family History Mother , AGE 91 Alzheimer disease Father , AGE 86 Essential hypertension AAA (abdominal aortic aneurysm) Alzheimer disease Heart disease Hyperlipidemia Bladder cancer Sister No problems noted. Maternal Grandfather , SHOT AGE 35 No problems noted. Paternal Grandfather , AGE 93 Heart disease Maternal Grandmother , AGE 64 Uterine cancer Paternal Grandmother , AGE 73 AAA (abdominal aortic aneurysm) Stroke Son No problems noted. Son Asthma Son No problems noted. Social History Smoking/Tobacco Use Status: Former Tobacco Use Tobacco: How many years used: 45 Smoking risk assessment performed?: Yes Alcohol Intake: current Alcohol Intake frequency: holidays/special occasions only Alcohol type: beer and wine Drug use: Never Substance use type: does not use Counseling given: No Counseling provided: other Adopted: No Caregiver/Support person: No Foster care: No Household members: none Housing: house Number of Children: 3 number of grandchildren: 6 Communication Needs: None Education Level: college Details: Associate's Degree Do you need help understanding health information?: Never 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 Pets and animals: No Sexually active: No Do you think of yourself as: straight/heterosexual Current gender identity: female What is your relationship status?: How often do you talk on the phone with friends or family?: three or more times per week How often do you get together with friends or relatives?: twice per week Do you belong to any clubs or organized social groups?: yes Panel score (0-1 are the most socially isolated patients): 2 What type of physical activity do you participate in: weight lifting and occasional exercise Duration: > 90 minutes/day Frequency: daily Any/Christianity: Denominational Special any needs: No Seatbelt use: always Helmet use: No Drive intox or ride w/intox driver messenger: No Do you feel safe at home: Yes Do you feel safe in your relationship?: Yes Additional Social history: lives alone Female Reproductive History Menstrual Menopause type: surgical History History 3 Para Hx # Term Pregnancies 3 Multiple births Hx # Pregnancies Ectopic pregnancies AB induced Hx Number of Living Children AB spontaneous Exam Const General: cooperative, no acute distress and not ill appearing Orientation: alert, awake and oriented x3 Resp Effort & Inspection: normal respiratory effort, able to speak in complete sentences and no respiratory distress Auscultation: clear to auscultation bilaterally Cardio Rate: regular rate Rhythm: regular rhythm Heart Sounds: S1 normal and S2 normal Neuro General: patient alert, patient awake, patient oriented x3, moves all extremities and no focal motor deficits Sensory Exam: no sensory deficits noted Extrem Right lower extremity: hip/thigh Details: other (Mild erythema to the surgical incision) Left lower extremity: hip/thigh (Dehiscence and drainage to superior aspect of incision ) Course Vital Signs Vital signs: Vital Signs Temperature 37.0 C 02/05/22 10:47 Pulse 82 02/05/22 10:47 Respiratory Rate 18 02/05/22 10:47 Blood Pressure 159/88 H 02/05/22 10:47 Pulse Oximetry 99 02/05/22 10:47 Temperature 37.0 C 02/05/22 10:47 Temperature Source Temporal Artery Scan 02/05/22 10:47 Pulse 82 02/05/22 10:47 Respiratory Rate 17 02/05/22 10:54 Respiratory Effort Non-Labored 02/05/22 10:54 Respiratory Depth Normal 02/05/22 10:54 Respiratory Pattern Normal 02/05/22 10:54 Blood Pressure 159/88 H 02/05/22 10:47 Blood Pressure Position Sitting 02/05/22 10:47 Pulse Oximetry 99 02/05/22 10:47 Oxygen Delivery Method Room Air 02/05/22 10:47 Oxygen Flow Rate 0 02/05/22 10:47 Pain Level 4 02/05/22 10:47 Lab/Test Results Lab/Test Results: Laboratory Tests Range/Units 02/05/22 02/05/22 11:38 11:38 WBC (4.4-10.8) 10^3/uL 6.75 RBC (3.93-5.22) 10^6/uL 3.39 L Hgb (11.2-15.7) g/dL 10.0 L Hct (36.0-46.0) % 31.9 L MCV (80-95) fL 94 MCH (27.0-33.0) pg 29.5 MCHC (32.0-36.0) % 31.3 L RDW (11.7-14.6) % 13.6 Plt Count (130-400) 10^3/uL 287 MPV (8.0-11.0) fL 8.6 Immature Gran % 0.1 Neutrophils % 47.8 Lymphocytes % 35.3 Monocytes % 9.0 Eosinophils % 7.1 Basophils % 0.7 Nucleated RBC % (0.0-0.3) % 0.0 Absolute Neutrophils (1.2-6.7) 10^3/uL 3.22 Absolute Lymphocytes (1.2-3.4) 10^3/uL 2.38 Absolute Monocytes (0.1-0.8) 10^3/uL 0.61 Absolute Eosinophils (0.0-0.7) 10^3/uL 0.48 Absolute Basophils (0.0-0.2) 10^3/uL 0.05 Sodium (136-145) mmol/L 142 Potassium (3.5-5.1) mmol/L 3.8 Chloride (98-107) mmol/L 106 Carbon Dioxide (21.0-32.0) mmol/L 28.2 Anion Gap (3-11) mmol/L 7.8 BUN (7-18) mg/dL 14 Creatinine (0.55-1.02) mg/dL 1.3 H Est GFR (CKD-EPI 2020) (mL/min/1.73m2) 42.62 Glucose (74-106) mg/dL 90 Calcium (8.5-10.1) mg/dL 9.4 Total Bilirubin (0.2-1.0) mg/dL 0.3 AST (15-37) U/L 13 L ALT (14-59) U/L 16 Alkaline Phosphatase (46-116) U/L 99 Total Protein (6.4-8.2) g/dL 7.7 Albumin (3.4-5.0) g/dL 3.7
[2022-02-05 12:43] VITALS: BP 168/89; PULSE 74; RESP 14; O2SAT 100
[2022-02-05] MEDS: Cephalexin 500 MG CAP PO (12:53)
== END 2022-02-05 12:55 | disposition home or self-care (01) ==
PROVIDERS: Emergency Provider Nurse Practitioner Family; PCP Student in an Organized Health Care Education/Training Program
DX: T81.49XA Infection following a procedure, other surgical site, initial encounter (principal); D64.9 Anemia, unspecified
CPT/HCPCS: 36415; 80053; 99283; 85025

== ENCOUNTER → 2022-02-10 10:18 | Outpatient (BNVA) | payer MEDICARE, SELFPAY | PROVIDERS: PCP Student in an Organized Health Care Education/Training Program; Referring Provider Student in an Organized Health Care Education/Training Program; Visit Provider Student in an Organized Health Care Education/Training Program | DX: Z96.643 Presence of artificial hip joint, bilateral (principal); T81.89XA Other complications of procedures, not elsewhere classified, initial encounter ==

== ENCOUNTER 2022-02-18 15:58 | Outpatient (CLI) | payer MEDICARE, SELFPAY ==
--- NOTE | 2022-02-18 15:45 | RT.EKG_ITS ---
APPROVED REPORT Exam: Resting ECG Reason for Exam: sob Patient Location: O HR:93 bpm ECG Measurements Heart Rate 93 AXIS IL 146 P 45 QRSd 97 QRS 54 QT 364 T 20 QTc 453 Conclusion Sinus rhythm...normal P axis, V-rate 50- 99 Probable left atrial enlargement...P >50mS, <-0.10mV V1 Otherwise normal
== END 2022-02-18 15:59 | disposition home or self-care (01) ==
LOC: DI.KIM 16:01
PROVIDERS: PCP Student in an Organized Health Care Education/Training Program; Visit Provider Student in an Organized Health Care Education/Training Program
DX: R06.02 Shortness of breath (principal); R07.9 Chest pain, unspecified
CPT/HCPCS: 93010

== ENCOUNTER 2022-02-18 16:49 | Emergency (ER) | payer MEDICARE, SELFPAY ==
[2022-02-18] VITALS (14 sets, daily range): BP systolic 115–163; BP diastolic 56–87; PULSE 79–105; RESP 12–21; TEMP 36.1–36.7; O2SAT 95–100
--- NOTE | 2022-02-18 16:45 | RT.EKG_ITS ---
APPROVED REPORT Exam: Resting ECG Reason for Exam: chest pain Patient Location: E HR:96 bpm ECG Measurements Heart Rate [address] 139 P 37 QRSd 99 QRS 47 QT 369 T 28 QTc 466 Conclusion Sinus rhythm...normal P axis, V-rate 60- 99 Probable left atrial enlargement...P >50mS, <-0.10mV V1 Minimal ST depression, diffuse leads...ST <-0.03mV, ant/lat/inf sinus rhythm, normal axis
--- NOTE | 2022-02-18 17:15 | DI.RAD_ITS ---
Exam(s) XR PORTABLE CHEST AP EXAM: XR PORTABLE CHEST AP CLINICAL HISTORY: SOB. TECHNIQUE: 2D digital imaging was performed. COMPARISON: CR,XR XR PORTABLE CHEST AP from 10/03/2021 FINDINGS: Single AP portable view. Heart size is upper normal. The upper mediastinum is not widened. Moderate size hiatal hernia is ag ain noted. Lungs are clear. No infiltrates nor obvious pleural effusions. IMPRESSION: No acute pulmonary findings on this single AP portable view of the chest. Moderate size hiatal hernia is again noted. DATA REPOSITORY: RADIATION DOSE DELIVERED:
--- NOTE | 2022-02-18 17:25 | ED.GENADUL_ITS ---
Discharge Plan Disposition Patient Disposition: HOME Condition: Stable Discharge Details Clinical Impression: Dyspnea Primary Care Provider: Mariajose Cuenca ED Provider: Kylee Palma Home Meds and New Rx's Prescriptions: Continued nitroglycerin 0.4 mg tablet, sublingual 0.4 mg sublingual Q5M PRN (Reason: chest pain) Qty: 30 1RF Rx Instructions: do not exceed 3 doses per episode halobetasol propionate 0.05 % ointment 1 applic topical BID Qty: 50 4RF Rx Instructions: apply tiny amount to vulvar bid for 2weeks then daily for 2weeks then twice weekly ammonium lactate 12 % cream 1 applic topical BID Qty: 385 1RF Rx Instructions: Trial for dry skin, edema Stiolto Respimat 2.5-2.5 mcg/actuation mist 2 puff inhalation DAILY Qty: 4 5RF losartan 100 mg tablet 100 mg PO DAILY Rx Instructions: 09/23/21 started sertraline 50 mg tablet 50 mg PO QHS Qty: 90 3RF Rx Instructions: start with half-tab for 3 days, then increase to 1tab (50mg) daily. vitamin B complex [B Complex-Vitamin B12] Tablet 1 tab PO DAILY levothyroxine 75 mcg tablet 75 mcg PO DAILY Qty: 90 1RF isosorbide mononitrate 30 mg tablet extended release 24 hr 60 mg PO DAILY Qty: 180 3RF spironolactone 25 mg tablet 25 mg PO DAILY PRN Rx Instructions: Trial for severe edema cholecalciferol (vitamin D3) [Vitamin D3] 2,000 UNIT capsule 2,000 unit PO DAILY Label Comments: 01/18/17-now takes 5000U/pps meclizine 25 mg tablet 12.5 - 25 mg PO TID PRN (Reason: dizziness) Qty: 30 4RF docusate sodium [Colace] 100 mg capsule 100 mg PO BID ropinirole 2 mg tablet 2 mg PO QHS Qty: 90 3RF Rx Instructions: administer 1-3 hours before bedtime torsemide 20 mg tablet 40 mg PO DAILY MDD 60mg Qty: 180 3RF sucralfate 100 mg/mL suspension 10 ml PO QACHS Qty: 420 1RF Rx Instructions: Continue for break-through reflux hydrocodone-acetaminophen 5-325 mg tablet 1 tab PO Q4H PRN MDD 15mg hydrocodone PRN (Reason: severe pain (scale score 7-10)) Qty: 15 0RF pantoprazole 40 mg tablet,delayed release (DR/EC) 40 mg PO BID Qty: 60 0RF celecoxib 200 mg capsule 200 mg PO DAILY Qty: 30 1RF acetaminophen 500 mg tablet 500 mg PO Q6H PRN PRN (Reason: pain) Qty: 40 3RF aspirin 81 mg Tablet,Delayed Release (Dr/Ec) 81 mg PO DAILY Discharge Instructions Instructions: Dyspnea (ED) Additional Instructions: At this time the cardiac work-up is within normal limits. EKG shows no changes, troponin is within normal limits. I did recommend a CT of your chest to rule out a blood clot. Please follow-up with your primary care provider return to the ER for any worsening shortness of breath chest pain or any concerns. Thank you for allowing us to care for you today. Follow up with primary care provider in 3-5 days. Return to ED sooner if any worsening or concerns. Increase oral fluids. Referrals: Mariajose Cuenca DO [Primary Care Provider] - 3 days Medical Decision Making 76-year-old female with past medical history of CHF, Sjogren's syndrome, restrictive lung disease presents with dyspnea, chest pressure, nausea and back pain x3 to 4 days. Sent here by her primary care provider. She is also status post bilateral replacement on January 10. Work-up ordered including serial troponins, EKG, proBNP due to bilateral lower extremity leg swelling. Will consider chest CT to rule out PE due to her recent surgery. Chest x-ray also ordered to rule out pneumonia. Other differential diagnosis includes but not limited to coronary artery disease, STEMI, NSTEMI, CHF exacerbation. CBC shows no leukocytosis, CMP shows slightly elevated carbon dioxide level 32.4, BUN 20 creatinine 1.7 GFR 30 troponin less than 50 which is within normal limits, pro BN P also within normal limits. 1838: Work-up is largely unremarkable. I did discuss lab results with patient who verbalized understanding. I did recommend a chest CT to rule out PE patient declines at this time she reports that she would rather go home at this point. She feels well enough to go home she is satting 94% on room air. Did encourage her to follow-up with her PCP. Also due to her borderline GFR, CTA was not done at this time This text was generated using DinnDinnation system, please disregard any oddities of phrase or misspellings. Medical Records Medical records reviewed: Yes I reviewed the patient's medical records. Imaging Data Radiologic Study: Imaging: X-Ray Radiologist's impression: Imaging protocol: Radiologic exam of the chest. Views: 1 view. COMPARISON: CR XR PORTABLE CHEST AP 10/03/2021 10:41 PM FINDINGS: Lungs: Hyperexpanded lung holloway consistent with COPD Pleural spaces: Unremarkable. No pleural effusion. No pneumothorax. Heart/Mediastinum: Unremarkable. No cardiomegaly. Bones/joints: Unremarkable. IMPRESSION: Hyperexpanded lung holloway consistent with COPD Lab Data Lab results reviewed: Yes I reviewed the patient's lab results. Labs: Laboratory Tests Range/Units 02/18/22 02/18/22 02/18/22 17:29 17:29 17:29 WBC (4.4-10.8) 10^3/uL 9.25 RBC (3.93-5.22) 10^6/uL 3.89 L Hgb (11.2-15.7) g/dL 11.4 Hct (36.0-46.0) % 35.7 L MCV (80-95) fL 92 MCH (27.0-33.0) pg 29.3 MCHC (32.0-36.0) % 31.9 L RDW (11.7-14.6) % 13.9 Plt Count (130-400) 10^3/uL 259 MPV (8.0-11.0) fL 8.7 Immature Gran % 0.3 Neutrophils % 53.2 Lymphocytes % 32.8 Monocytes % 9.1 Eosinophils % 4.3 Basophils % 0.3 Nucleated RBC % (0.0-0.3) % 0.0 Absolute Neutrophils (1.2-6.7) 10^3/uL 4.92 Absolute Lymphocytes (1.2-3.4) 10^3/uL 3.03 Absolute Monocytes (0.1-0.8) 10^3/uL 0.84 H Absolute Eosinophils (0.0-0.7) 10^3/uL 0.40 Absolute Basophils (0.0-0.2) 10^3/uL 0.03 Sodium (136-145) mmol/L 142 Potassium (3.5-5.1) mmol/L 3.5 Chloride (98-107) mmol/L 101 Carbon Dioxide (21.0-32.0) mmol/L 32.4 H Anion Gap (3-11) mmol/L 8.6 BUN (7-18) mg/dL 20 H Creatinine (0.55-1.02) mg/dL 1.7 H Est GFR (CKD-EPI 2020) (mL/min/1.73m2) 30.89 Glucose (74-106) mg/dL 104 Calcium (8.5-10.1) mg/dL 9.5 Magnesium (1.8-2.4) mg/dL 1.8 Total Bilirubin (0.2-1.0) mg/dL 0.4 AST (15-37) U/L 19 ALT (14-59) U/L 21 Alkaline Phosphatase (46-116) U/L 97 Troponin I (<or=60) ng/L < 50 NT-Pro-B Natriuret Pep (<300) pg/mL 166 Total Protein (6.4-8.2) g/dL 8.1 Albumin (3.4-5.0) g/dL 4.0 Range/Units 02/18/22 20:17 WBC (4.4-10.8) 10^3/uL RBC (3.93-5.22) 10^6/uL Hgb (11.2-15.7) g/dL Hct (36.0-46.0) % MCV (80-95) fL MCH (27.0-33.0) pg MCHC (32.0-36.0) % RDW (11.7-14.6) % Plt Count (130-400) 10^3/uL MPV (8.0-11.0) fL Immature Gran % Neutrophils % Lymphocytes % Monocytes % Eosinophils % Basophils % Nucleated RBC % (0.0-0.3) % Absolute Neutrophils (1.2-6.7) 10^3/uL Absolute Lymphocytes (1.2-3.4) 10^3/uL Absolute Monocytes (0.1-0.8) 10^3/uL Absolute Eosinophils (0.0-0.7) 10^3/uL Absolute Basophils (0.0-0.2) 10^3/uL Sodium (136-145) mmol/L Potassium (3.5-5.1) mmol/L Chloride (98-107) mmol/L Carbon Dioxide (21.0-32.0) mmol/L Anion Gap (3-11) mmol/L BUN (7-18) mg/dL Creatinine (0.55-1.02) mg/dL Est GFR (CKD-EPI 2020) (mL/min/1.73m2) Glucose (74-106) mg/dL Calcium (8.5-10.1) mg/dL Magnesium (1.8-2.4) mg/dL Total Bilirubin (0.2-1.0) mg/dL AST (15-37) U/L ALT (14-59) U/L Alkaline Phosphatase (46-116) U/L Troponin I (<or=60) ng/L Cancelled NT-Pro-B Natriuret Pep (<300) pg/mL Total Protein (6.4-8.2) g/dL Albumin (3.4-5.0) g/dL HPI General Mode of arrival: ambulatory . Date/Time Provider Initiated Documentation: 02/18/22 17:00 . Limitations to Documentation: no limitations . Information obtained by: patient, RN/MD (PCP MD), RN notes reviewed and old records reviewed . HPI Narrative: 76-year-old female presents to the ER after being seen at her primary care provider's office today with a chief complaint of dyspnea x3 to 4 days some back pain which has resolved, chest pressure and nausea which she reports occurred earlier today. Upon arrival to the ER her symptoms have somewhat resolved she is complaining of shortness of breath however. She is status post bilateral hip replacement on January 10. She also has a history of CHF,Sjorgen disease, restrictive lung disease shrinking lung syndrome chronic renal insufficiency stage II coronary artery disease obesity hypothyroidism Related Data Home Medications Medication Instructions Recorded Confirmed cholecalciferol (vitamin D3) 50 2,000 unit PO DAILY 07/01/15 02/18/22 mcg (2,000 unit) capsule (Vitamin D3) meclizine 25 mg tablet 12.5 - 25 mg PO TID PRN dizziness 06/16/20 02/18/22 #30 tabs nitroglycerin 0.4 mg sublingual 0.4 mg sublingual Q5M PRN chest 12/12/20 02/18/22 tablet pain #30 tabs halobetasol propionate 0.05 % 1 applic topical BID #50 grams 01/05/21 02/18/22 topical ointment tiotropium 2.5 mcg-olodaterol 2.5 2 puff inhalation DAILY #4 grams 07/12/21 02/18/22 mcg/actuation mist for inhalation (Stiolto Respimat) ammonium lactate 12 % topical cream 1 applic topical BID #385 grams 07/15/21 02/18/22 docusate sodium 100 mg capsule 100 mg PO BID 09/15/21 02/18/22 (Colace) losartan 100 mg tablet 100 mg PO DAILY 09/24/21 02/18/22 sertraline 50 mg tablet 50 mg PO QHS #90 tabs 09/24/21 02/18/22 vitamin B complex (B 1 tab PO DAILY 10/26/21 02/18/22 Complex-Vitamin B12 tablet) isosorbide mononitrate 30 mg 60 mg PO DAILY #180 tab-caps 10/27/21 02/18/22 tablet,extended release 24 hr levothyroxine 75 mcg tablet 75 mcg PO DAILY #90 tabs 10/27/21 02/18/22 ropinirole 2 mg tablet 2 mg PO QHS #90 tabs 10/28/21 02/18/22 torsemide 20 mg tablet 40 mg PO DAILY #180 tabs 11/03/21 02/18/22 acetaminophen 500 mg tablet 500 mg PO Q6H PRN PRN pain #40 tabs 01/17/22 02/18/22 celecoxib 200 mg capsule 200 mg PO DAILY #30 caps 01/17/22 02/18/22 sucralfate 100 mg/mL oral 10 ml PO QACHS #420 mL 01/20/22 02/18/22 suspension hydrocodone 5 mg-acetaminophen 325 1 tab PO Q4H PRN PRN severe pain 02/04/22 02/18/22 mg tablet (scale score 7-10) #15 tabs pantoprazole 40 mg tablet,delayed 40 mg PO BID #60 tabs 02/09/22 02/18/22 release aspirin 81 mg tablet,delayed 81 mg PO DAILY 02/18/22 02/18/22 release spironolactone 25 mg tablet 25 mg PO DAILY PRN 11/11/22 11/11/22 Previous Rx's Medication Instructions Recorded meclizine 25 mg tablet 12.5 - 25 mg PO TID PRN dizziness 06/16/20 #30 tabs nitroglycerin 0.4 mg sublingual 0.4 mg sublingual Q5M PRN chest 12/12/20 tablet pain #30 tabs halobetasol propionate 0.05 % 1 applic topical BID #50 grams 01/05/21 topical ointment tiotropium 2.5 mcg-olodaterol 2.5 2 puff inhalation DAILY #4 grams 07/12/21 mcg/actuation mist for inhalation (Stiolto Respimat) ammonium lactate 12 % topical cream 1 applic topical BID #385 grams 07/15/21 sertraline 50 mg tablet 50 mg PO QHS #90 tabs 09/24/21 isosorbide mononitrate 30 mg 60 mg PO DAILY #180 tab-caps 10/27/21 tablet,extended release 24 hr levothyroxine 75 mcg tablet 75 mcg PO DAILY #90 tabs 10/27/21 ropinirole 2 mg tablet 2 mg PO QHS #90 tabs 10/28/21 torsemide 20 mg tablet 40 mg PO DAILY #180 tabs 11/03/21 acetaminophen 500 mg tablet 500 mg PO Q6H PRN PRN pain #40 tabs 01/17/22 celecoxib 200 mg capsule 200 mg PO DAILY #30 caps 01/17/22 sucralfate 100 mg/mL oral 10 ml PO QACHS #420 mL 01/20/22 suspension hydrocodone 5 mg-acetaminophen 325 1 tab PO Q4H PRN PRN severe pain 02/04/22 mg tablet (scale score 7-10) #15 tabs pantoprazole 40 mg tablet,delayed 40 mg PO BID #60 tabs 02/09/22 release Allergies Allergy/AdvReac Type Severity Reaction Status Date / Time codeine Allergy Severe Anaphylaxsi Verified 02/18/22 17:08 s morphine Allergy Severe Anaphylaxsi Verified 02/18/22 17:08 s oxycodone Allergy Severe Anaphylaxsi Verified 02/18/22 17:08 s amoxicillin [From Augmentin] AdvReac Intermediate Hives Verified 02/18/22 17:08 Swelling budesonide AdvReac Intermediate thrush Verified 02/18/22 17:08 clavulanic acid AdvReac Intermediate Hives Verified 02/18/22 17:08 [From Augmentin] Swelling lisinopril AdvReac Intermediate cough Verified 02/18/22 17:08 pentazocine AdvReac Intermediate elevated Verified 02/18/22 17:08 LFT's diphenhydramine AdvReac Mild Benadryl Verified 02/18/22 17:08 [From Benadryl] and Tylenol PM poorly tolerated, wound up. fluconazole AdvReac Mild Nausea Verified 02/18/22 17:08 prednisone AdvReac Mild flu like Verified 02/18/22 17:08 illness varenicline AdvReac Mild I got Verified 02/18/22 17:08 ugly General Stated Complaint: SOB TERESA: 2 Review of Systems All systems reviewed & are unremarkable except as noted in HPI and below Cardiovascular Cardiovascular: Reports chest pain (Chest pressure, resolved), Reports leg edema and Reports dyspnea Respiratory Respiratory: Denies change in phlegm color, Reports cough, Denies hemoptysis, Denies excessive phlegm production and Reports dyspnea Gastrointestinal Gastrointestinal: Denies diarrhea, Reports nausea and Denies vomiting Musculoskeletal Musculoskeletal: Reports back pain PFSH All Active Problems (Updated 02/18/22 @ 18:41 by Kylee Palma NP) Dyspnea (Acute) Delayed surgical wound healing (Acute) Status post bilateral total hip replacement (Acute 01/14/22) Acute kidney injury superimposed on chronic kidney disease (Acute) Acute postoperative anemia due to expected blood loss (Acute) Adult BMI 40.0-44.9 kg/sq m (Acute) Bilateral groin pain (Acute) Inguinal Ligament Pain & Stiffness .. becomes hard, like a bone Sacroiliac dysfunction (Acute) 08/23/21 [facility] [place] Pain and spine note Displacement of lumbar intervertebral disc (Acute) 08/23/21 [facility] [place] Pain and spine note Lumbar stenosis (Chronic) with lumbosacral radiculopathy per [facility] Pelvic somatic dysfunction (Acute) Per PMR/Spine ... severe pain of SI Joint, Lower Back, Buttocks. Pelvic floor dysfunction (Acute) Presumed, [ ] P.PT Back pain (Acute) Weakness (Acute) Bilateral edema of lower extremity (Acute) Adult failure to thrive (Acute) Breath shortness (Acute) Nodule of spleen (Acute) Dyspnea on exertion (Acute) Coronary artery disease involving [place] coronary artery of [place] heart without angina pectoris (Acute) Bilateral groin pain (Chronic) & buttock .. see PMR note, 08/2021. JOSTIN (acute kidney injury) (Acute) Cr 1.7 vs 1.5, 09/03/21 .. complicating diuresis. Chronic renal insufficiency, stage II (mild) (Chronic) Mild-Mod CKD G3a (GFR 48, 08/2020). Hiatal hernia (Chronic) General/Bariatric Surgery on HOLD 2' CHF, Hip Pain. Widened retrocardiac hiatal hernia, 7cm x 5cm AP. Larger than 2013..Hx GERD, with possible new symptoms (12/2020). Surgery? Abnormal chest CT (Acute) [facility] 06/03/21: Recommendations to be discussed w/ pt; 1. F/u imaging of enlarged subcarinal node 3-6mo. 2. Correlating mammography or breast u/s for breast nodules (non-emergent). 3. Dedicated imaging for indeterminate splenic lesion. 4. Repeat Chest CT Q12mo to f/u on nodules bi-lat. Lung nodule < 6cm on CT (Acute) 4mm, per 12/2020 CT (new since 2012).. 6 mo FU [ ] Shrinking lung syndrome (Acute) Restrictive lung disease (Acute) PFT, 01/2021 (Spirometry: Muscle pressures are decreased.. diffusion [capacity] reduced.. Airway resistance normal...Possible mild restrictive lung disease with decreased muscle pressures and a reduced diffusion. (compared to 02/23/2012, total lung capacity & diffusion is reduced .. Clinical Correlation (?) ik Sjogren's disease (Chronic) GERD (gastroesophageal reflux disease) (Chronic) Tubular adenoma of colon (Chronic 04/25/16) Prediabetes (Acute) A1C 5.8 Hypothyroidism (Chronic) Medical History Abnormal finding on imaging CT (Lung Ca Screen), 12/2020: Increased markings, 4mm RLL nodule, Dec volume, widened hiatal hernia. Achilles tendonitis Left, with plantar fasciitis Acute nonintractable headache Anterior epistaxis BPPV (benign paroxysmal positional vertigo) CHF (congestive heart failure) mild-mod per new cardio eval (not as severe as originally thought)(not responsible for degree of edema observed, 09/2021) Chronic antral gastritis Chronic pain Chronic pain of both lower extremities Diastolic dysfunction New Cardio disagrees, 09/2021. Per Cardio (Chris), 09/2018 ... June 29, 2010: LVEDP 23 mm mercury. January 31, 2000. LVEDP 7 mm mercury, rising to 21 mm mercury after 1 L normal saline over 10 minutes. Wedge pressure 19 mm mercury .. mild pulmonary hypertension on right heart catheterization (40-45 MmHG). Hx recurrent pericarditis/ pericardial effusion, Sjogren's syndrome. Dysphagia Edema due to congestive heart failure Doubting CHF as full reason for edema ([facility], 09/2021).Acute on chronic, presumed CHF.. following diuresis per Dr. Perez direction, 06/2021. Edema of thigh resolved with [facility] admission/care Fatigue severe, sudden onset, napped x hours this week (2' fluconazole?) Femoroacetabular impingement of both hips Former smoker Quit 05/2009 Herpes simplex Hip effusion, right Aspirated, Ortho, 06/2021 Hyperlipidemia (07/23/12) Hx declining statin? Increased BMI (body mass index) (05/11/17) Morbid obesity per [facility] Gen Surge 04/21/21 note Left carpal tunnel syndrome Lichen sclerosus et atrophicus Halbetasol per [facility], 01/2021. (2019. Patient advised to begin topical steroid to vulva) Lipoma of left upper extremity Localized osteoarthritis of right knee Low back pain Neoplasm of uncertain behavior of skin (05/15/14) Left forehead, status post excision with primary closure. Seborrheic keratosis by final pathology. 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 TAYLER ([facility]) shows borderline/normal results. 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 Perez on 01/06/20 Posterior tibial tendon dysfunction, left Restless leg syndrome Screening mammography declined 12/2020 EO Severe obstructive sleep apnea 06/13/21 Sleep study note Severe right groin pain x 2 weeks, with Hx low grade discomfort x months. Hx UrSling. Rt thigh pain described. Shortness of breath Sialoadenitis (10/31/13) Skin lesion of neck Snoring Stopped smoking with greater than 40 pack year history Strain of muscle of right groin region Tobacco dependence Unilateral primary osteoarthritis, left knee Surgical History Abdominal hysterectomy ENDOMETRIOSIS; ONE OVARY REMAINS Colonoscopy - IV Sedation (04/25/16) History of ankle surgery hardware present History of arthroplasty of finger of left hand History of bunionectomy of both great toes History of carpal tunnel surgery of left wrist History of colpocleisis History of suburethral sling procedure 12/18/18 Vaginectomy/colpocleisis with Posterior colporrhapy and transobturat or mid urethral sling at [facility] [place] Hx of appendectomy Hx of thumb surgery Prolapse of female pelvic organs Stage III post hysterectomy vaginal prolapse with stress incontinence. Rx at [facility] [place] 12/18/18. Status post abdominal hysterectomy Status post tonsillectomy 2018? Tonsillectomy Family History Mother , AGE 91 Alzheimer disease Father , AGE 86 Essential hypertension AAA (abdominal aortic aneurysm) Alzheimer disease Heart disease Hyperlipidemia Bladder cancer Sister No problems noted. Maternal Grandfather , SHOT AGE 35 No problems noted. Paternal Grandfather , AGE 93 Heart disease Maternal Grandmother , AGE 64 Uterine cancer Paternal Grandmother , AGE 73 AAA (abdominal aortic aneurysm) Stroke Son No problems noted. Son Asthma Son No problems noted. Social History Smoking/Tobacco Use Status: Former Tobacco Use Tobacco: How many years used: 45 Smoking risk assessment performed?: Yes Alcohol Intake: current Alcohol Intake frequency: holidays/special occasions only Alcohol type: beer and wine Drug use: Never Substance use type: does not use Counseling given: No Counseling provided: other Adopted: No Caregiver/Support person: No Foster care: No Household members: none Housing: house Number of Children: 3 number of grandchildren: 6 Communication Needs: None Education Level: college Details: Associate's Degree Do you need help understanding health information?: Never 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[place] Pets and animals: No Sexually active: No Do you think of yourself as: straight/heterosexual Current gender identity: female What is your relationship status?: How often do you talk on the phone with friends or family?: three or more times per week How often do you get together with friends or relatives?: twice per week Do you belong to any clubs or organized social groups?: yes Panel score (0-1 are the most socially isolated patients): 2 What type of physical activity do you participate in: weight lifting and occasional exercise Duration: > 90 minutes/day Frequency: daily Any/Protestant: Sikhism Special any needs: No Seatbelt use: always Helmet use: No Drive intox or ride w/intox entry driver operator: No Do you feel safe at home: Yes Do you feel safe in your relationship?: Yes Additional Social history: lives alone Female Reproductive History Menstrual Menopause type: surgical History History 3 Para Hx # Term Pregnancies 3 Multiple births Hx # Pregnancies Ectopic pregnancies AB induced Hx Number of Living Children AB spontaneous Exam Narrative Exam Narrative: Constitutional: Alert and oriented x3. Appears stated age. Obese body habitus. Head: Normocephalic, no trauma. Eyes: Pupils PERRL, Red reflex noted, EOM's intact. Eyelids symmetrical without lesions, discharge, or swelling. ENT: Bilateral TM's WNL, External ear normal to inspection, no mastoid TTP, swelling, or erythema, Nasal turbinates WNL, no nasal discharge. Normal dentition, Posterior pharynx WNL, no exudate. Chest: RRR, Normal S1, S2, distal pulses intact. Resp: Mild scattered rhonchi with auscultation Abdomen: Soft, non-distended, Normoactive bowel sounds all 4 quads. Musculoskeletal: Normal gait, 5/5 strength to all four extremities. 2+ pitting edema noted to bilateral lower extremities. Skin: No suspicious rashes or lesions. Capillary refill less than 2 sec. Neurologic: Cranial nerves II-XII intact. Alert and oriented x 3. Motor: No deficits noted. Sensory: Intact bilaterally all 4 extremities. Reflexes: DTR's intact bilaterally.. Hematologic/Lymphatic: No ecchymosis, no lymphadenopathy. Course Vital Signs Vital signs: Vital Signs Temperature 36.7 C 02/18/22 16:59 Pulse 92 H 02/18/22 16:59 Respiratory Rate 17 02/18/22 16:59 Blood Pressure 163/75 H 02/18/22 16:59 Pulse Oximetry 96 02/18/22 16:59 Temperature 36.7 C 02/18/22 16:59 Temperature Source Skin 02/18/22 16:59 Pulse 92 H 02/18/22 16:59 Respiratory Rate 16 02/18/22 17:11 Respiratory Effort 02/18/22 17:11 Respiratory Depth Normal 02/18/22 17:11 Blood Pressure 163/75 H 02/18/22 16:59 Pulse Oximetry 96 02/18/22 16:59 Oxygen Delivery Method Room Air 02/18/22 16:59 Oxygen Flow Rate 0 02/18/22 16:59 Pain Level 0 02/18/22 16:59
[2022-02-18 17:40] LABS: Abs Immature Grans 0.03 10^3/uL (0.0-0.06); Absolute Basophil Count 0.03 10^3/uL (0.0-0.2); Absolute Lymphocyte Count 3.03 10^3/uL (1.2-3.4); Absolute Monocyte Count 0.84 10^3/uL (0.1-0.8); Absolute Neutrophil Count 4.92 10^3/uL (1.2-6.7); Basophils % 0.3; Eosinophils % 4.3; HCT 35.7 % (36.0-46.0); HGB 11.4 g/dL (11.2-15.7); Immature Grans % 0.3; Lymphocytes % 32.8; MCH 29.3 pg (27.0-33.0); MCHC 31.9 % (32.0-36.0); MCV 92 fL (80-95); MPV 8.7 fL (8.0-11.0); Monocytes % 9.1; Neutrophils % 53.2; Platelet Count 259 10^3/uL (130-400); RBC 3.89 10^6/uL (3.93-5.22); RDW 13.9 % (11.7-14.6); RDW-SD 46.8 fL; WBC 9.25 10^3/uL (4.4-10.8)
[2022-02-18 17:55] LABS: ALT 21 U/L (14-59); AST 19 U/L (15-37); Alkaline Phosphatase 97 U/L (46-116); Anion Gap 8.6 mmol/L (3-11); BUN 20 mg/dL (7-18); Bilirubin, Total 0.4 mg/dL (0.2-1.0); CO2 32.4 mmol/L (21.0-32.0); CREATININE 1.7 mg/dL (0.55-1.02); Calcium 9.5 mg/dL (8.5-10.1); Chloride 101 mmol/L (98-107); Estimated GFR 30.89 (mL/min/1.73m2); Glucose 104 mg/dL (74-106); Magnesium 1.8 mg/dL (1.8-2.4); Potassium 3.5 mmol/L (3.5-5.1); Sodium 142 mmol/L (136-145); Total Protein 8.1 g/dL (6.4-8.2); Troponin I < 50 ng/L (<or=60)
[2022-02-18 18:00] LABS: NT-proBNP 166 pg/mL (<300)
--- NOTE | 2022-02-18 18:24 | DI.VRAD_ITS ---
PROCEDURE INFORMATION: Exam: XR Chest Exam date and time: 02/18/2022 5:38 PM Age: 76 years old Clinical indication: Shortness of breath TECHNIQUE: Imaging protocol: Radiologic exam of the chest. Views: 1 view. COMPARISON: CR XR PORTABLE CHEST AP 10/03/2021 10:41 PM FINDINGS: Lungs: Hyperexpanded lung holloway consistent with COPD Pleural spaces: Unremarkable. No pleural effusion. No pneumothorax. Heart/Mediastinum: Unremarkable. No cardiomegaly. Bones/joints: Unremarkable. IMPRESSION: Hyperexpanded lung holloway consistent with COPD Dictated and Authenticated by: Sonu Kenny MD. Ordering:STEWART Pichardo MD
== END 2022-02-18 18:58 | disposition home or self-care (01) ==
PROVIDERS: Emergency Provider Registered Nurse Emergency; PCP Student in an Organized Health Care Education/Training Program
DX: R06.00 Dyspnea, unspecified (principal); I50.9 Heart failure, unspecified; E66.9 Obesity, unspecified; R79.81 Abnormal blood-gas level
CPT/HCPCS: 36415; 80053; 93005; 99284; 71045; 83735; 83880; 84484; 85025; 93010; 99285

== ENCOUNTER 2022-02-24 11:06 | Emergency (ER) | payer MEDICARE, SELFPAY ==
[2022-02-24] VITALS (33 sets, daily range): BP systolic 109–136; BP diastolic 49–98; PULSE 87–136; RESP 16–27; TEMP 36.7–36.8; O2SAT 90–98
--- NOTE | 2022-02-24 11:00 | RT.EKG_ITS ---
APPROVED REPORT Exam: Resting ECG Reason for Exam: tachycardia, sob Patient Location: E HR:103 bpm ECG Measurements Heart Rate 103 AXIS AK 169 P 34 QRSd 109 QRS 72 QT 374 T -50 QTc 489 Conclusion Sinus tachycardia...rate> 99 Probable left atrial enlargement...P >50mS, <-0.10mV V1 Nonspecific repol abnormality, diffuse leads...ST dep, T flat/neg, ant/lat/inf S1Q3T3 Abnormal Electrocardiogram
--- NOTE | 2022-02-24 11:30 | DI.CT_ITS ---
Exam(s) CT CHEST PE CTA EXAM: CT CHEST PE CTA CLINICAL HISTORY: chest pain, sob x 2weeks, tachycardic. TECHNIQUE: Imaging Protocol: Axial CT angiography was performed with multi-slice acquisition and mu lti-planar and/or 3D reconstructions. CONTRAST MATERIAL: Intravenous: Omnipaque 350 Contrast volume:structured data in ml COMPARISON: CT CT ABDOMEN PELVIS WO from 10/29/2021 FINDINGS: CT angiography of the chest was performed with intravenous infusion of 100 cc of Omnipaque 350. Moderate-sized hiatal hernia noted. The lungs are predominantly clear with mild areas of atelectasis period. No pleural effusion. Trache obronchial tree appears intact. There are multiple pulmonary emboli, involving lobar segmental and subsegmental pulmonary arterial cy st circulation in all pulmonary lobes period no central embolus identified. There is evidence of mil d right heart strain with slight prominence of right ventricle and mild reflux into hepatic veins per iod. Thoracic aorta is of normal diameter, no thoracic aortic aneurysm or dissection, major branch v essels appear intact. No mediastinal or hilar adenopathy. Images obtained through the upper abdomen show unremarkable appearance of the visualized portions of the liver, spleen, pancreas, adrenals, and kidneys. IMPRESSION: Extensive pulmonary embolic disease as described above with evidence of mild right heart strain.. RADIATION DOSE DELIVERED: Total DLP Total DLP DATA REPOSITORY: All CT scans at this facility are submitted to the National Radiology Data Registry (NRDR) Dose Index Registry (DIR) with the [employer] (ACR). RADIATION OPTIMIZATION: All CT scans at this facility use at least one of these dose optimization te chniques: automated exposure control; mA and/or kV adjustment per patient size (includes targeted exa ms where dose is matched to clinical indication); or iterative reconstruction.
--- NOTE | 2022-02-24 11:49 | W.ED.GENAD ---
Discharge Plan Disposition Patient Disposition: Transfer-Acute Inpatient Care Specific Acute Inpt Facility: [facility] Condition: Critical Discharge Details Clinical Impression: Acute pulmonary embolism Primary Care Provider: Mariajose Cuenca ED Provider: Eduardo Campos Home Meds and New Rx's Prescriptions: No Action nitroglycerin 0.4 mg tablet, sublingual 0.4 mg sublingual Q5M PRN (Reason: chest pain) Qty: 30 1RF Rx Instructions: do not exceed 3 doses per episode halobetasol propionate 0.05 % ointment 1 applic topical BID Qty: 50 4RF Rx Instructions: apply tiny amount to vulvar bid for 2weeks then daily for 2weeks then twice weekly ammonium lactate 12 % cream 1 applic topical BID Qty: 385 1RF Rx Instructions: Trial for dry skin, edema Stiolto Respimat 2.5-2.5 mcg/actuation mist 2 puff inhalation DAILY Qty: 4 5RF losartan 100 mg tablet 100 mg PO DAILY Rx Instructions: 09/23/21 started sertraline 50 mg tablet 50 mg PO QHS Qty: 90 3RF Rx Instructions: start with half-tab for 3 days, then increase to 1tab (50mg) daily. vitamin B complex [B Complex-Vitamin B12] Tablet 1 tab PO DAILY levothyroxine 75 mcg tablet 75 mcg PO DAILY Qty: 90 1RF isosorbide mononitrate 30 mg tablet extended release 24 hr 60 mg PO DAILY Qty: 180 3RF spironolactone 25 mg tablet 25 mg PO DAILY PRN Rx Instructions: Trial for severe edema cholecalciferol (vitamin D3) [Vitamin D3] 2,000 UNIT capsule 2,000 unit PO DAILY Label Comments: 01/18/17-now takes 5000U/pps meclizine 25 mg tablet 12.5 - 25 mg PO TID PRN (Reason: dizziness) Qty: 30 4RF docusate sodium [Colace] 100 mg capsule 100 mg PO BID ropinirole 2 mg tablet 2 mg PO QHS Qty: 90 3RF Rx Instructions: administer 1-3 hours before bedtime torsemide 20 mg tablet 40 mg PO DAILY MDD 60mg Qty: 180 3RF sucralfate 100 mg/mL suspension 10 ml PO QACHS Qty: 420 1RF Rx Instructions: Continue for break-through reflux hydrocodone-acetaminophen 5-325 mg tablet 1 tab PO Q4H PRN MDD 15mg hydrocodone PRN (Reason: severe pain (scale score 7-10)) Qty: 15 0RF pantoprazole 40 mg tablet,delayed release (DR/EC) 40 mg PO BID Qty: 60 0RF celecoxib 200 mg capsule 200 mg PO DAILY Qty: 30 1RF acetaminophen 500 mg tablet 500 mg PO Q6H PRN PRN (Reason: pain) Qty: 40 3RF aspirin 81 mg Tablet,Delayed Release (Dr/Ec) 81 mg PO DAILY Discharge Data Discharge Date/Time-TO BE ENTERED AT DEPARTURE: 02/24/22 15:45 Medical Decision Making 1211 --76-year-old female with multiple medical problems including history of restrictive lung disease, recent bilateral hip replacement in January, here with progressive shortness of exertion over the past 2 weeks. Patient is hypoxic off oxygen and improved on nasal cannula 2 L she is tachycardic with normal blood pressure. Patient was here on 02/18 and had nondiagnostic work-up. Patient had refused CT of the chest at that time. I am concerned about the potential for acute pulmonary embolism. Plan to obtain CT of the chest. Consider ACS and CHF. EKG was reviewed and interpreted by me please see report, sinus tachycardia 103 bpm, S1Q3T3 is present, there is ST depressions present even to V6. 1315 --CT of the chest was interpreted by radiology: Bilateral pulmonary emboli, mild right heart strain noted. Will initiate treatment with Lovenox 1 mg/kg subcutaneous. Labs reviewed and troponin is elevated as is BNP. I called the hospitalist, spoke with Dr. Flanagan, discussed ED presentation course, she requests call to tertiary care to see if there is capacity accept in transfer. [facility] transfer center contacted. -- [facility] return: Noted unable to accept patient due to capacity. I contacted [facility] transfer center requested transfer awaiting callback [phone] --[facility] Dr. Hays will accept patient in transfer. IR reviewed CT and feels could potentially intervene. I spoke with Sterling the critical care fellow and discussed ED presentation course and he will accept patient behalf of Dr. Mulligan. Lab Data Lab results reviewed: Yes I reviewed the patient's lab results. Labs: Laboratory Tests Range/Units 02/24/22 02/24/22 02/24/22 11:48 11:55 11:55 WBC (4.4-10.8) 10^3/uL 9.12 RBC (3.93-5.22) 10^6/uL 3.94 Hgb (11.2-15.7) g/dL 11.5 Hct (36.0-46.0) % 36.4 MCV (80-95) fL 92 MCH (27.0-33.0) pg 29.2 MCHC (32.0-36.0) % 31.6 L RDW (11.7-14.6) % 13.9 Plt Count (130-400) 10^3/uL 251 MPV (8.0-11.0) fL 8.8 Immature Gran % 0.2 Neutrophils % 65.1 Lymphocytes % 27.1 Monocytes % 6.6 Eosinophils % 0.7 Basophils % 0.3 Nucleated RBC % (0.0-0.3) % 0.0 Absolute Neutrophils (1.2-6.7) 10^3/uL 5.94 Absolute Lymphocytes (1.2-3.4) 10^3/uL 2.47 Absolute Monocytes (0.1-0.8) 10^3/uL 0.60 Absolute Eosinophils (0.0-0.7) 10^3/uL 0.06 Absolute Basophils (0.0-0.2) 10^3/uL 0.03 Sodium (136-145) mmol/L 143 Potassium (3.5-5.1) mmol/L 3.8 Chloride (98-107) mmol/L 103 Carbon Dioxide (21.0-32.0) mmol/L 28.1 Anion Gap (3-11) mmol/L 11.9 H BUN (7-18) mg/dL 15 Creatinine (0.55-1.02) mg/dL 1.3 H Est GFR (CKD-EPI 2020) (mL/min/1.73m2) 42.62 Glucose (74-106) mg/dL 99 Calcium (8.5-10.1) mg/dL 9.6 Magnesium (1.8-2.4) mg/dL 2.1 Total Bilirubin (0.2-1.0) mg/dL 0.4 AST (15-37) U/L 22 ALT (14-59) U/L 28 Alkaline Phosphatase (46-116) U/L 95 Troponin I (<or=60) ng/L 394 H* NT-Pro-B Natriuret Pep (<300) pg/mL 6875 H Total Protein (6.4-8.2) g/dL 7.8 Albumin (3.4-5.0) g/dL 3.8 COVID-19 Source Nasopharynx SARS-CoV-2 (PCR) (Negative) Negative Influenza Type A (PCR) (Negative) Negative Influenza Type B (PCR) (Negative) Negative RSV (PCR) (Negative) Negative Sign Out No HPI General Mode of arrival: ambulatory. Date/Time Provider Initiated Documentation: 02/24/22 11:33. Limitations to Documentation: no limitations. Information obtained by: patient. HPI Narrative: 76-year-old female with history of multiple medical problems including history of Sjogren's disease, restrictive lung disease, coronary artery disease, presents with chief complaint of shortness of breath. Patient has shortness of breath progressive over the past 2 weeks. Symptoms not severe. Worse with any exertion. She denies associated chest pain. Related Data Home Medications Medication Instructions Recorded Confirmed cholecalciferol (vitamin D3) 50 2,000 unit PO DAILY 07/01/15 02/24/22 mcg (2,000 unit) capsule (Vitamin D3) meclizine 25 mg tablet 12.5 - 25 mg PO TID PRN dizziness 06/16/20 02/24/22 #30 tabs nitroglycerin 0.4 mg sublingual 0.4 mg sublingual Q5M PRN chest 12/12/20 02/24/22 tablet pain #30 tabs halobetasol propionate 0.05 % 1 applic topical BID #50 grams 01/05/21 02/24/22 topical ointment tiotropium 2.5 mcg-olodaterol 2.5 2 puff inhalation DAILY #4 grams 07/12/21 02/24/22 mcg/actuation mist for inhalation (Stiolto Respimat) ammonium lactate 12 % topical cream 1 applic topical BID #385 grams 07/15/21 02/24/22 docusate sodium 100 mg capsule 100 mg PO BID 09/15/21 02/24/22 (Colace) losartan 100 mg tablet 100 mg PO DAILY 09/24/21 02/24/22 sertraline 50 mg tablet 50 mg PO QHS #90 tabs 09/24/21 02/24/22 vitamin B complex (B 1 tab PO DAILY 10/26/21 02/24/22 Complex-Vitamin B12 tablet) isosorbide mononitrate 30 mg 60 mg PO DAILY #180 tab-caps 10/27/21 02/24/22 tablet,extended release 24 hr levothyroxine 75 mcg tablet 75 mcg PO DAILY #90 tabs 10/27/21 02/24/22 ropinirole 2 mg tablet 2 mg PO QHS #90 tabs 10/28/21 02/24/22 torsemide 20 mg tablet 40 mg PO DAILY #180 tabs 11/03/21 02/24/22 acetaminophen 500 mg tablet 500 mg PO Q6H PRN PRN pain #40 tabs 01/17/22 02/24/22 celecoxib 200 mg capsule 200 mg PO DAILY #30 caps 01/17/22 02/24/22 sucralfate 100 mg/mL oral 10 ml PO QACHS #420 mL 01/20/22 02/24/22 suspension hydrocodone 5 mg-acetaminophen 325 1 tab PO Q4H PRN PRN severe pain 02/04/22 02/24/22 mg tablet (scale score 7-10) #15 tabs pantoprazole 40 mg tablet,delayed 40 mg PO BID #60 tabs 02/09/22 02/24/22 release aspirin 81 mg tablet,delayed 81 mg PO DAILY 02/18/22 02/24/22 release spironolactone 25 mg tablet 25 mg PO DAILY PRN 02/18/22 02/24/22 Previous Rx's Medication Instructions Recorded meclizine 25 mg tablet 12.5 - 25 mg PO TID PRN dizziness 06/16/20 #30 tabs nitroglycerin 0.4 mg sublingual 0.4 mg sublingual Q5M PRN chest 12/12/20 tablet pain #30 tabs halobetasol propionate 0.05 % 1 applic topical BID #50 grams 01/05/21 topical ointment tiotropium 2.5 mcg-olodaterol 2.5 2 puff inhalation DAILY #4 grams 07/12/21 mcg/actuation mist for inhalation (Stiolto Respimat) ammonium lactate 12 % topical cream 1 applic topical BID #385 grams 07/15/21 sertraline 50 mg tablet 50 mg PO QHS #90 tabs 09/24/21 isosorbide mononitrate 30 mg 60 mg PO DAILY #180 tab-caps 10/27/21 tablet,extended release 24 hr levothyroxine 75 mcg tablet 75 mcg PO DAILY #90 tabs 10/27/21 ropinirole 2 mg tablet 2 mg PO QHS #90 tabs 10/28/21 torsemide 20 mg tablet 40 mg PO DAILY #180 tabs 11/03/21 acetaminophen 500 mg tablet 500 mg PO Q6H PRN PRN pain #40 tabs 01/17/22 celecoxib 200 mg capsule 200 mg PO DAILY #30 caps 01/17/22 sucralfate 100 mg/mL oral 10 ml PO QACHS #420 mL 01/20/22 suspension hydrocodone 5 mg-acetaminophen 325 1 tab PO Q4H PRN PRN severe pain 02/04/22 mg tablet (scale score 7-10) #15 tabs pantoprazole 40 mg tablet,delayed 40 mg PO BID #60 tabs 02/09/22 release Allergies Allergy/AdvReac Type Severity Reaction Status Date / Time codeine Allergy Severe Anaphylaxsi Verified 02/24/22 11:31 s morphine Allergy Severe Anaphylaxsi Verified 02/24/22 11:31 s oxycodone Allergy Severe Anaphylaxsi Verified 02/24/22 11:31 s amoxicillin [From Augmentin] AdvReac Intermediate Hives Verified 02/24/22 11:31 Swelling budesonide AdvReac Intermediate thrush Verified 02/24/22 11:31 clavulanic acid AdvReac Intermediate Hives Verified 02/24/22 11:31 [From Augmentin] Swelling lisinopril AdvReac Intermediate cough Verified 02/24/22 11:31 pentazocine AdvReac Intermediate elevated Verified 02/24/22 11:31 LFT's diphenhydramine AdvReac Mild Benadryl Verified 02/24/22 11:31 [From Benadryl] and Tylenol PM poorly tolerated, wound up. fluconazole AdvReac Mild Nausea Verified 02/24/22 11:31 prednisone AdvReac Mild flu like Verified 02/24/22 11:31 illness varenicline AdvReac Mild I got Verified 02/24/22 11:31 ugly General Stated Complaint: RespSymp TERESA: 3 Review of Systems All systems reviewed & are unremarkable except as noted in HPI and below Constitutional Constitutional: Denies fever(s) Cardiovascular Cardiovascular: Reports dyspnea Respiratory Respiratory: Reports cough (chronic) and Reports dyspnea Gastrointestinal Gastrointestinal: Denies abdominal pain ON LICENSE OF [facility] All Active Problems (Updated 02/24/22 @ 14:48 by Eduardo Campos MD) Acute pulmonary embolism (Acute) Dyspnea (Acute) Delayed surgical wound healing (Acute) Status post bilateral total hip replacement (Acute 01/14/22) Acute kidney injury superimposed on chronic kidney disease (Acute) Acute postoperative anemia due to expected blood loss (Acute) Adult BMI 40.0-44.9 kg/sq m (Acute) Bilateral groin pain (Acute) Inguinal Ligament Pain & Stiffness .. becomes hard, like a bone Sacroiliac dysfunction (Acute) 08/23/21 [facility] Pain and spine note Displacement of lumbar intervertebral disc (Acute) 08/23/21 [facility] Pain and spine note Lumbar stenosis (Chronic) with lumbosacral radiculopathy per Pain Clinic Pelvic somatic dysfunction (Acute) Per PMR/Spine ... severe pain of SI Joint, Lower Back, Buttocks. Pelvic floor dysfunction (Acute) Presumed, [ ] P.PT Back pain (Acute) Weakness (Acute) Bilateral edema of lower extremity (Acute) Adult failure to thrive (Acute) Breath shortness (Acute) Nodule of spleen (Acute) Dyspnea on exertion (Acute) Coronary artery disease involving [place] coronary artery of [place] heart without angina pectoris (Acute) Bilateral groin pain (Chronic) & buttock .. see PMR note, 08/2021. JOSTIN (acute kidney injury) (Acute) Cr 1.7 vs 1.5, 09/03/21 .. complicating diuresis. Chronic renal insufficiency, stage II (mild) (Chronic) Mild-Mod CKD G3a (GFR 48, 08/2020). Hiatal hernia (Chronic) General/Bariatric Surgery on HOLD 2' CHF, Hip Pain. Widened retrocardiac hiatal hernia, 7cm x 5cm AP. Larger than 2012..Hx GERD, with possible new symptoms (12/2020). Surgery? Abnormal chest CT (Acute) [facility] 06/03/21: Recommendations to be discussed w/ pt; 1. F/u imaging of enlarged subcarinal node 3-6mo. 2. Correlating mammography or breast u/s for breast nodules (non-emergent). 3. Dedicated imaging for indeterminate splenic lesion. 4. Repeat Chest CT Q12mo to f/u on nodules bi-lat. Lung nodule < 6cm on CT (Acute) 4mm, per 12/2020 CT (new since 2012).. 6 mo FU [ ] Shrinking lung syndrome (Acute) Restrictive lung disease (Acute) PFT, 01/2021 (Spirometry: Muscle pressures are decreased.. diffusion [capacity] reduced.. Airway resistance normal...Possible mild restrictive lung disease with decreased muscle pressures and a reduced diffusion. (compared to 02/23/2012, total lung capacity & diffusion is reduced .. Clinical Correlation (?) ik Sjogren's disease (Chronic) GERD (gastroesophageal reflux disease) (Chronic) Tubular adenoma of colon (Chronic 04/25/16) Prediabetes (Acute) A1C 5.8 Hypothyroidism (Chronic) Medical History Abnormal finding on imaging CT (Lung Ca Screen), 12/2020: Increased markings, 4mm RLL nodule, Dec volume, widened hiatal hernia. Achilles tendonitis Left, with plantar fasciitis Acute nonintractable headache Anterior epistaxis BPPV (benign paroxysmal positional vertigo) CHF (congestive heart failure) mild-mod per new cardio eval (not as severe as originally thought)(not responsible for degree of edema observed, 09/2021) Chronic antral gastritis Chronic pain Chronic pain of both lower extremities Diastolic dysfunction New Cardio disagrees, 09/2021. Per Cardio (Chris), 09/2018 ... June 29, 2010: LVEDP 23 mm mercury. January 31, 2000. LVEDP 7 mm mercury, rising to 21 mm mercury after 1 L normal saline over 10 minutes. Wedge pressure 19 mm mercury .. mild pulmonary hypertension on right heart catheterization (40-45 MmHG). Hx recurrent pericarditis/ pericardial effusion, Sjogren's syndrome. Dysphagia Edema due to congestive heart failure Doubting CHF as full reason for edema (New Cardio, 09/2021).Acute on chronic, presumed CHF.. following diuresis per Dr. Perez direction, 06/2021. Edema of thigh resolved with [facility] admission/care Fatigue severe, sudden onset, napped x hours this week (2' fluconazole?) Femoroacetabular impingement of both hips Former smoker Quit 05/2009 Herpes simplex Hip effusion, right Aspirated, Ortho, 06/2021 Hyperlipidemia (07/23/12) Hx declining statin? Increased BMI (body mass index) (05/11/17) Morbid obesity per [facility] Gen Surge 04/21/21 note Left carpal tunnel syndrome Lichen sclerosus et atrophicus Halbetasol per [facility], 01/2021. (2019. Patient advised to begin topical steroid to vulva) Lipoma of left upper extremity Localized osteoarthritis of right knee Low back pain Neoplasm of uncertain behavior of skin (05/15/14) Left forehead, status post excision with primary closure. Seborrheic keratosis by final pathology. 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 TALYER ([facility]) shows borderline/normal results. 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 Perez on 01/06/20 Posterior tibial tendon dysfunction, left Restless leg syndrome Screening mammography declined 12/2020 EO Severe obstructive sleep apnea 06/13/21 Sleep study note Severe right groin pain x 2 weeks, with Hx low grade discomfort x months. Hx UrSling. Rt thigh pain described. Shortness of breath Sialoadenitis (10/31/13) Skin lesion of neck Snoring Stopped smoking with greater than 40 pack year history Strain of muscle of right groin region Tobacco dependence Unilateral primary osteoarthritis, left knee Surgical History Abdominal hysterectomy ENDOMETRIOSIS; ONE OVARY REMAINS Colonoscopy - IV Sedation (04/25/16) History of ankle surgery hardware present History of arthroplasty of finger of left hand History of bunionectomy of both great toes History of carpal tunnel surgery of left wrist History of colpocleisis History of suburethral sling procedure 12/18/18 Vaginectomy/colpocleisis with Posterior colporrhapy and transobturator mid urethral sling at [facility] Hx of appendectomy Hx of thumb surgery Prolapse of female pelvic organs Stage III post hysterectomy vaginal prolapse with stress incontinence. Rx at [facility] 12/18/18. Status post abdominal hysterectomy Status post tonsillectomy 2018? Tonsillectomy Family History Mother , AGE 91 Alzheimer disease Father , AGE 86 Essential hypertension AAA (abdominal aortic aneurysm) Alzheimer disease Heart disease Hyperlipidemia Bladder cancer Sister No problems noted. Maternal Grandfather , SHOT AGE 35 No problems noted. Paternal Grandfather , AGE 93 Heart disease Maternal Grandmother , AGE 64 Uterine cancer Paternal Grandmother , AGE 73 AAA (abdominal aortic aneurysm) Stroke Son No problems noted. Son Asthma Son No problems noted. Social History Smoking/Tobacco Use Status: Former Tobacco Use Tobacco: How many years used: 45 Smoking risk assessment performed?: Yes Alcohol Intake: current Alcohol Intake frequency: holidays/special occasions only Alcohol type: beer and wine Drug use: Never Substance use type: does not use Counseling given: No Counseling provided: other Adopted: No Caregiver/Support person: No Foster care: No Household members: none Housing: house Number of Children: 3 number of grandchildren: 6 Communication Needs: None Education Level: college Details: Associate's Degree Do you need help understanding health information?: Never 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 [employer] Pets and animals: No Sexually active: No Do you think of yourself as: straight/heterosexual Current gender identity: female What is your relationship status?: How often do you talk on the phone with friends or family?: three or more times per week How often do you get together with friends or relatives?: twice per week Do you belong to any clubs or organized social groups?: yes Panel score (0-1 are the most socially isolated patients): 2 What type of physical activity do you participate in: weight lifting and occasional exercise Duration: > 90 minutes/day Frequency: daily Any/Judaism: Yazidism Special any needs: No Seatbelt use: always Helmet use: No Drive intox or ride w/intox furniture mover driver: No Do you feel safe at home: Yes Do you feel safe in your relationship?: Yes Additional Social history: lives alone Female Reproductive History Menstrual Menopause type: surgical History History 3 Para Hx # Term Pregnancies 3 Multiple births Hx # Pregnancies Ectopic pregnancies AB induced Hx Number of Living Children AB spontaneous Exam Const General: cooperative HENMT Mouth: moist mucous membranes Eyes Conjunctivae: normal conjunctivae Sclera: normal sclerae Neck Neck: trachea midline and supple Resp Effort & Inspection: tachypneic Auscultation: clear to auscultation bilaterally, no rales, no rhonchi and no wheezes Cardio Rate: tachycardic Rhythm: regular rhythm GI Palpation: soft, not firm, no guarding, no masses, not rigid and nontender Skin General skin exam: no rashes or lesions noted Neuro General: patient alert, patient awake, patient oriented x3 and tone normal Extrem General: no calf tenderness and no edema Psych Appearance: grossly normal Mental Status: mental status grossly normal Speech and Movement: speech and movement normal Course Vital Signs Vital signs: Vital Signs Temperature 36.7 C 02/24/22 11:18 Pulse 107 H 02/24/22 11:18 Respiratory Rate 26 H 02/24/22 11:18 Blood Pressure 136/98 H 02/24/22 11:18 Pulse Oximetry 90 L 02/24/22 11:18 Temperature 36.7 C 02/24/22 11:18 Temperature Source Temporal Artery Scan 02/24/22 11:18 Pulse 107 H 02/24/22 11:18 Respiratory Rate 26 H 02/24/22 11:18 Respiratory Effort Incrsd Work of Breathing 02/24/22 11:32 Blood Pressure 136/98 H 02/24/22 11:18 Pulse Oximetry 90 L 02/24/22 11:18 Oxygen Delivery Method Nasal Cannula 02/24/22 11:18 Oxygen Flow Rate 2 02/24/22 11:18 Critical Care Time Critical Care Time Critical Care Time: Yes Total Critical Care Time: 50 Attestation: I spent greater than 50 minutes addressing this patient's immediate life threats. Please see MDM section of note. This time was spent engaged in work directly related to the patient's care, exclusive of separate procedures, and failure to initiate these interventions would have likely resulted in clinically significant or life threatening deterioration in the patient's condition.
[2022-02-24 12:06] LABS: Abs Immature Grans 0.02 10^3/uL (0.0-0.06); Absolute Basophil Count 0.03 10^3/uL (0.0-0.2); Absolute Eosinophil Count 0.06 10^3/uL (0.0-0.7); Absolute Lymphocyte Count 2.47 10^3/uL (1.2-3.4); Absolute Neutrophil Count 5.94 10^3/uL (1.2-6.7); Basophils % 0.3; Eosinophils % 0.7; HCT 36.4 % (36.0-46.0); HGB 11.5 g/dL (11.2-15.7); Immature Grans % 0.2; Lymphocytes % 27.1; MCH 29.2 pg (27.0-33.0); MCHC 31.6 % (32.0-36.0); MCV 92 fL (80-95); MPV 8.8 fL (8.0-11.0); Monocytes % 6.6; Neutrophils % 65.1; Platelet Count 251 10^3/uL (130-400); RBC 3.94 10^6/uL (3.93-5.22); RDW 13.9 % (11.7-14.6); RDW-SD 47.3 fL; WBC 9.12 10^3/uL (4.4-10.8)
[2022-02-24 12:28] LABS: ALT 28 U/L (14-59); AST 22 U/L (15-37); Albumin 3.8 g/dL (3.4-5.0); Alkaline Phosphatase 95 U/L (46-116); Anion Gap 11.9 mmol/L (3-11); BUN 15 mg/dL (7-18); Bilirubin, Total 0.4 mg/dL (0.2-1.0); CO2 28.1 mmol/L (21.0-32.0); CREATININE 1.3 mg/dL (0.55-1.02); Calcium 9.6 mg/dL (8.5-10.1); Chloride 103 mmol/L (98-107); Estimated GFR 42.62 (mL/min/1.73m2); Glucose 99 mg/dL (74-106); Magnesium 2.1 mg/dL (1.8-2.4); NT-proBNP 6875 pg/mL (<300); Potassium 3.8 mmol/L (3.5-5.1); Sodium 143 mmol/L (136-145); Total Protein 7.8 g/dL (6.4-8.2)
[2022-02-24 12:30] LABS: Troponin I 394 ng/L (<or=60)
[2022-02-24 12:36] LABS: COVID-19 PCR Negative (Negative); Influenza A PCR Negative (Negative); Influenza B PCR Negative (Negative); RSV PCR Negative (Negative)
[2022-02-24 12:40] LABS: Source Nasopharynx
[2022-02-24] MEDS: Omnipaque 350 MG/ML 100 ML BTL IJ (12:51)
[2022-02-24] MEDS: Enoxaparin 100 MG/ML SYR SC (13:30)
[2022-02-24 15:28] LABS: Troponin I 331 ng/L (<or=60)
== END 2022-02-24 15:45 | disposition short-term general hospital (02) ==
PROVIDERS: Emergency Provider Student in an Organized Health Care Education/Training Program; PCP Student in an Organized Health Care Education/Training Program
DX: I26.99 Other pulmonary embolism without acute cor pulmonale (principal); I50.9 Heart failure, unspecified; I25.10 Atherosclerotic heart disease of native coronary artery without angina pectoris; Z20.822 Contact with and (suspected) exposure to COVID-19; Z79.82 Long term (current) use of aspirin
CPT/HCPCS: 71275; 80053; 87637; 93005; 96372; 99291; 83735; 83880; 84484; 85025; 93010; J1650; J3490

== ENCOUNTER 2022-03-04 23:06 | Emergency (ER) | payer MEDICARE, SELFPAY ==
[2022-03-04] VITALS (8 sets, daily range): BP systolic 121–142; BP diastolic 59–97; PULSE 72–76; RESP 19–23; TEMP 36.3; O2SAT 97–98
--- NOTE | 2022-03-04 23:15 | DI.CT_ITS ---
Exam(s) CT BRAIN NECK CTA EXAM: CT BRAIN NECK CTA CLINICAL HISTORY: neck pain, occipital headache. TECHNIQUE: Imaging Protocol: Axial CT angiography was performed with multi-slice acquisition and mu lti-planar and 3D reconstructions. CONTRAST MATERIAL: Intravenous: Omnipaque 350 Contrast volume:structured data in ml COMPARISON: CT CT CHEST PE CTA from 02/24/2022 FINDINGS: CT Head W/O and W contrast: Ventricles and Extra axial spaces: Normal in size and morphology for the patient's age. Hemorrhage: None. Cerebral parenchyma: Mild atrophy. Midline shift: None. Brainstem/Cerebellum: Normal. Calvarium: Normal. Visualized Paranasal sinuses/Mastoids: Clear. Soft Tissues: Unremarkable. Enhancement: Normal. CTA Brain W: Internal Carotid Arteries: Petrous: Normal. Cavernous: Normal. Cerebral: Normal. Middle Cerebral Arteries: Right: No aneurysm, occlusion or significant stenosis. Left: No aneurysm, occlusion or significant stenosis. Anterior Cerebral Arteries: Right: No aneurysm, occlusion or significant stenosis. Left: No aneurysm, occlusion or significant stenosis. Posterior cerebral Arteries: Right: No aneurysm, occlusion or significant stenosis. Left: No aneurysm, occlusion or significant stenosis. Vertebral Arteries: Right: No aneurysm, occlusion or significant stenosis. Left: No aneurysm, occlusion or significant stenosis. Basilar Artery: No aneurysm, occlusion or significant stenosis. CTA Neck W: Common Carotid: Right: No aneurysm, occlusion or significant stenosis. Left: No aneurysm, occlusion or significant stenosis. External Carotid: Right: No aneurysm, occlusion or significant stenosis. Left: No aneurysm, occlusion or significant stenosis. Internal Carotid: Right: No aneurysm, occlusion or significant stenosis. Left: Minimal calcific plaque proximal. No aneurysm, occlusion or significant stenosis. Vertebral Artery: Right: No aneurysm, occlusion or significant stenosis. Left: No aneurysm, occlusion or significant stenosis. Lung Apices: Normal. Bones: Degenerative changes in the cervical spine. Soft Tissues: Normal. IMPRESSION: 1. Normal CTA examination of the [place]. 2. Unremarkable CT Head. 3. Minimal atherosclerotic changes. No evidence of dissection or significant stenosis. RADIATION DOSE DELIVERED: 1,951.61mGy.cm Total DLP DATA REPOSITORY: All CT scans at this facility are submitted to the National Radiology Data Registry (NRDR) Dose Index Registry (DIR) with the [employer] (ACR). RADIATION OPTIMIZATION: All CT scans at this facility use at least one of these dose optimization te chniques: automated exposure control; mA and/or kV adjustment per patient size (includes targeted exa ms where dose is matched to clinical indication); or iterative reconstruction.
[2022-03-04 23:48] LABS: Abs Immature Grans 0.03 10^3/uL (0.0-0.06); Absolute Basophil Count 0.03 10^3/uL (0.0-0.2); Absolute Eosinophil Count 0.26 10^3/uL (0.0-0.7); Absolute Lymphocyte Count 2.66 10^3/uL (1.2-3.4); Absolute Monocyte Count 0.86 10^3/uL (0.1-0.8); Absolute Neutrophil Count 4.86 10^3/uL (1.2-6.7); Basophils % 0.3; HCT 30.7 % (36.0-46.0); HGB 9.6 g/dL (11.2-15.7); Immature Grans % 0.3; Lymphocytes % 30.6; MCH 28.7 pg (27.0-33.0); MCHC 31.3 % (32.0-36.0); MCV 92 fL (80-95); MPV 8.6 fL (8.0-11.0); Monocytes % 9.9; Neutrophils % 55.9; Platelet Count 292 10^3/uL (130-400); RBC 3.34 10^6/uL (3.93-5.22); RDW 13.8 % (11.7-14.6); RDW-SD 46.4 fL
--- NOTE | 2022-03-04 23:48 | W.ED.GENAD ---
Discharge Plan Disposition Patient Disposition: Home Condition: Stable Discharge Details Clinical Impression: Neck pain Primary Care Provider: Mariajose Cuenca ED Provider: Jim Tay Home Meds and New Rx's Prescriptions: New cyclobenzaprine 5 mg tablet 5 mg PO QHS PRN (Reason: muscle spasm) Qty: 7 0RF lidocaine [Lidoderm] 5 % adhesive patch,medicated 1 patch topical DAILY PRNQty: 15 0RF Rx Instructions: leave on most painful area for up to 12 hrs No Action nitroglycerin 0.4 mg tablet, sublingual 0.4 mg sublingual Q5M PRN (Reason: chest pain) Qty: 30 1RF Rx Instructions: do not exceed 3 doses per episode halobetasol propionate 0.05 % ointment 1 applic topical BID Qty: 50 4RF Rx Instructions: apply tiny amount to vulvar bid for 2weeks then daily for 2weeks then twice weekly ammonium lactate 12 % cream 1 applic topical BID Qty: 385 1RF Rx Instructions: Trial for dry skin, edema Stiolto Respimat 2.5-2.5 mcg/actuation mist 2 puff inhalation DAILY Qty: 4 5RF losartan 100 mg tablet 100 mg PO DAILY Rx Instructions: 09/23/21 started sertraline 50 mg tablet 50 mg PO QHS Qty: 90 3RF Rx Instructions: start with half-tab for 3 days, then increase to 1tab (50mg) daily. vitamin B complex [B Complex-Vitamin B12] Tablet 1 tab PO DAILY levothyroxine 75 mcg tablet 75 mcg PO DAILY Qty: 90 1RF isosorbide mononitrate 30 mg tablet extended release 24 hr 60 mg PO DAILY Qty: 180 3RF spironolactone 25 mg tablet 25 mg PO DAILY PRN Rx Instructions: Trial for severe edema cholecalciferol (vitamin D3) [Vitamin D3] 2,000 UNIT capsule 2,000 unit PO DAILY Label Comments: 01/18/17-now takes 5000U/pps meclizine 25 mg tablet 12.5 - 25 mg PO TID PRN (Reason: dizziness) Qty: 30 4RF docusate sodium [Colace] 100 mg capsule 100 mg PO BID ropinirole 2 mg tablet 2 mg PO QHS Qty: 90 3RF Rx Instructions: administer 1-3 hours before bedtime torsemide 20 mg tablet 40 mg PO DAILY MDD 60mg Qty: 180 3RF sucralfate 100 mg/mL suspension 10 ml PO QACHS Qty: 420 1RF Rx Instructions: Continue for break-through reflux hydrocodone-acetaminophen 5-325 mg tablet 1 tab PO Q4H PRN MDD 15mg hydrocodone PRN (Reason: severe pain (scale score 7-10)) Qty: 15 0RF pantoprazole 40 mg tablet,delayed release (DR/EC) 40 mg PO BID Qty: 60 0RF celecoxib 200 mg capsule 200 mg PO DAILY Qty: 30 1RF acetaminophen 500 mg tablet 500 mg PO Q6H PRN PRN (Reason: pain) Qty: 40 3RF aspirin 81 mg Tablet,Delayed Release (Dr/Ec) 81 mg PO DAILY Discharge Instructions Instructions: Neck Pain (ED) Additional Instructions: Please follow-up with your primary care physician. Use ice or heat as needed for discomfort on neck. Please return to the emergency department if you develop any worsening symptoms. Medical Decision Making 76-year-old female recently started on anticoagulation for massive PE, presents with atraumatic neck pain and occipital headache over the past 2 days gradual in onset, discomfort mainly along trapezius, no midline spinal tenderness, cranial nerves intact 5/5 strength, alert oriented afebrile nontoxic nonmeningeal. Likely tension type headache versus musculoskeletal discomfort of neck however given age and recent anticoagulation with new onset headache must assess for intracranial hemorrhage. Less likely vertebral dissection or carotid dissection. Will obtain CT CTA head neck. Analgesia anti-inflammatory disposition pending results 01: 25 resting comfortably no acute distress. CT and labs unremarkable. Likely muscle spasm/strain. Given home care instructions and return precautions Sign Out No HPI General Date/Time Provider Initiated Documentation: 03/04/22 23:20. HPI Narrative: 76-year-old female recent diagnosis of PE, status post thrombectomy started on anticoagulation, presents with atraumatic posterior neck pain and headache over the past 2 days Related Data Home Medications Medication Instructions Recorded Confirmed cholecalciferol (vitamin D3) 50 2,000 unit PO DAILY 07/01/15 03/04/22 mcg (2,000 unit) capsule (Vitamin D3) meclizine 25 mg tablet 12.5 - 25 mg PO TID PRN dizziness 06/16/20 03/04/22 #30 tabs nitroglycerin 0.4 mg sublingual 0.4 mg sublingual Q5M PRN chest 12/12/20 03/04/22 tablet pain #30 tabs halobetasol propionate 0.05 % 1 applic topical BID #50 grams 01/05/21 03/04/22 topical ointment tiotropium 2.5 mcg-olodaterol 2.5 2 puff inhalation DAILY #4 grams 07/12/21 03/04/22 mcg/actuation mist for inhalation (Stiolto Respimat) ammonium lactate 12 % topical cream 1 applic topical BID #385 grams 07/15/21 03/04/22 docusate sodium 100 mg capsule 100 mg PO BID 09/15/21 03/04/22 (Colace) losartan 100 mg tablet 100 mg PO DAILY 09/24/21 03/04/22 sertraline 50 mg tablet 50 mg PO QHS #90 tabs 09/24/21 03/04/22 vitamin B complex (B 1 tab PO DAILY 10/26/21 03/04/22 Complex-Vitamin B12 tablet) isosorbide mononitrate 30 mg 60 mg PO DAILY #180 tab-caps 10/27/21 03/04/22 tablet,extended release 24 hr levothyroxine 75 mcg tablet 75 mcg PO DAILY #90 tabs 10/27/21 03/04/22 ropinirole 2 mg tablet 2 mg PO QHS #90 tabs 10/28/21 03/04/22 torsemide 20 mg tablet 40 mg PO DAILY #180 tabs 11/03/21 03/04/22 acetaminophen 500 mg tablet 500 mg PO Q6H PRN PRN pain #40 tabs 01/17/22 03/04/22 celecoxib 200 mg capsule 200 mg PO DAILY #30 caps 01/17/22 03/04/22 sucralfate 100 mg/mL oral 10 ml PO QACHS #420 mL 01/20/22 03/04/22 suspension hydrocodone 5 mg-acetaminophen 325 1 tab PO Q4H PRN PRN severe pain 02/04/22 03/04/22 mg tablet (scale score 7-10) #15 tabs pantoprazole 40 mg tablet,delayed 40 mg PO BID #60 tabs 02/09/22 03/04/22 release aspirin 81 mg tablet,delayed 81 mg PO DAILY 02/18/22 03/04/22 release spironolactone 25 mg tablet 25 mg PO DAILY PRN 02/18/22 03/04/22 cyclobenzaprine 5 mg tablet 5 mg PO QHS PRN muscle spasm #7 03/05/22 tabs lidocaine 5 % topical patch 1 patch topical DAILY PRN #15 ea 03/05/22 (Lidoderm) Previous Rx's Medication Instructions Recorded meclizine 25 mg tablet 12.5 - 25 mg PO TID PRN dizziness 06/16/20 #30 tabs nitroglycerin 0.4 mg sublingual 0.4 mg sublingual Q5M PRN chest 12/12/20 tablet pain #30 tabs halobetasol propionate 0.05 % 1 applic topical BID #50 grams 01/05/21 topical ointment tiotropium 2.5 mcg-olodaterol 2.5 2 puff inhalation DAILY #4 grams 07/12/21 mcg/actuation mist for inhalation (Stiolto Respimat) ammonium lactate 12 % topical cream 1 applic topical BID #385 grams 07/15/21 sertraline 50 mg tablet 50 mg PO QHS #90 tabs 09/24/21 isosorbide mononitrate 30 mg 60 mg PO DAILY #180 tab-caps 10/27/21 tablet,extended release 24 hr levothyroxine 75 mcg tablet 75 mcg PO DAILY #90 tabs 10/27/21 ropinirole 2 mg tablet 2 mg PO QHS #90 tabs 10/28/21 torsemide 20 mg tablet 40 mg PO DAILY #180 tabs 11/03/21 acetaminophen 500 mg tablet 500 mg PO Q6H PRN PRN pain #40 tabs 01/17/22 celecoxib 200 mg capsule 200 mg PO DAILY #30 caps 01/17/22 sucralfate 100 mg/mL oral 10 ml PO QACHS #420 mL 01/20/22 suspension hydrocodone 5 mg-acetaminophen 325 1 tab PO Q4H PRN PRN severe pain 02/04/22 mg tablet (scale score 7-10) #15 tabs pantoprazole 40 mg tablet,delayed 40 mg PO BID #60 tabs 02/09/22 release cyclobenzaprine 5 mg tablet 5 mg PO QHS PRN muscle spasm #7 03/05/22 tabs lidocaine 5 % topical patch 1 patch topical DAILY PRN #15 ea 03/05/22 (Lidoderm) Allergies Allergy/AdvReac Type Severity Reaction Status Date / Time codeine Allergy Severe Anaphylaxsi Verified 03/04/22 23:19 s morphine Allergy Severe Anaphylaxsi Verified 03/04/22 23:19 s oxycodone Allergy Severe Anaphylaxsi Verified 03/04/22 23:19 s amoxicillin [From Augmentin] AdvReac Intermediate Hives Verified 03/04/22 23:19 Swelling budesonide AdvReac Intermediate thrush Verified 03/04/22 23:19 clavulanic acid AdvReac Intermediate Hives Verified 03/04/22 23:19 [From Augmentin] Swelling lisinopril AdvReac Intermediate cough Verified 03/04/22 23:19 pentazocine AdvReac Intermediate elevated Verified 03/04/22 23:19 LFT's diphenhydramine AdvReac Mild Benadryl Verified 03/04/22 23:19 [From Benadryl] and Tylenol PM poorly tolerated, wound up. fluconazole AdvReac Mild Nausea Verified 03/04/22 23:19 prednisone AdvReac Mild flu like Verified 03/04/22 23:19 illness varenicline AdvReac Mild I got Verified 03/04/22 23:19 ugly General Stated Complaint: GenMedical TERESA: 3 Review of Systems Narrative: Review of Systems Constitutional: negative Eyes: negative ENT: negative Cardiovascular: negative Respiratory: negative Gastrointestinal: negative : negative Musculoskeletal: Neck pain Skin: negative Neurologic: Headache Psych: negative PFSH All Active Problems (Updated 03/05/22 @ 01:46 by Jim Tay MD) Acute pulmonary embolism (Acute) Neck pain (Acute) Dyspnea (Acute) Delayed surgical wound healing (Acute) Status post bilateral total hip replacement (Acute 01/14/22) Acute kidney injury superimposed on chronic kidney disease (Acute) Acute postoperative anemia due to expected blood loss (Acute) Adult BMI 40.0-44.9 kg/sq m (Acute) Bilateral groin pain (Acute) Inguinal Ligament Pain & Stiffness .. becomes hard, like a bone Sacroiliac dysfunction (Acute) [place] [facility] [place] Displacement of lumbar intervertebral disc (Acute) 08[place]23/21 [facility] [place] Lumbar stenosis (Chronic) with lumbosacral radiculopathy per [facility] Pelvic somatic dysfunction (Acute) Per PMR/Spine ... severe pain of SI Joint, Lower Back, Buttocks. Pelvic floor dysfunction (Acute) Presumed, [ ] P.PT Back pain (Acute) Weakness (Acute) Bilateral edema of lower extremity (Acute) Adult failure to thrive (Acute) Breath shortness (Acute) Nodule of spleen (Acute) Dyspnea on exertion (Acute) Coronary artery disease involving [place] coronary artery of [place] heart without angina pectoris (Acute) Bilateral groin pain (Chronic) & buttock .. see PMR note, 08/2021. JOSTIN (acute kidney injury) (Acute) Cr 1.7 vs 1.5, 09/03/21 .. complicating diuresis. Chronic renal insufficiency, stage II (mild) (Chronic) Mild-Mod CKD G3a (GFR 48, 08/2020). Hiatal hernia (Chronic) General/Bariatric Surgery on HOLD 2' CHF, Hip Pain. Widened retrocardiac hiatal hernia, 7cm x 5cm AP. Larger than 2013..Hx GERD, with possible new symptoms (12/2020). Surgery? Abnormal chest CT (Acute) [facility] 06/03/21: Recommendations to be discussed w/ pt; 1. F/u imaging of enlarged subcarinal node 3-6mo. 2. Correlating mammography or breast u/s for breast nodules (non-emergent). 3. Dedicated imaging for indeterminate splenic lesion. 4. Repeat Chest CT Q12mo to f/u on nodules bi-lat. Lung nodule < 6cm on CT (Acute) 4mm, per 12/2020 CT (new since 2012).. 6 mo FU [ ] Shrinking lung syndrome (Acute) Restrictive lung disease (Acute) PFT, 01/2021 (Spirometry: Muscle pressures are decreased.. diffusion [capacity] reduced.. Airway resistance normal...Possible mild restrictive lung disease with decreased muscle pressures and a reduced diffusion. (compared to 02/23/2012, total lung capacity & diffusion is reduced .. Clinical Correlation (?) ik Sjogren's disease (Chronic) GERD (gastroesophageal reflux disease) (Chronic) Tubular adenoma of colon (Chronic 04/25/16) Prediabetes (Acute) A1C 5.8 Hypothyroidism (Chronic) Medical History Abnormal finding on imaging CT (Lung Ca Screen), 12/2020: Increased markings, 4mm RLL nodule, Dec volume, widened hiatal hernia. Achilles tendonitis Left, with plantar fasciitis Acute nonintractable headache Anterior epistaxis BPPV (benign paroxysmal positional vertigo) CHF (congestive heart failure) mild-mod per new cardio eval (not as severe as originally thought)(not responsible for degree of edema observed, 09/2021) Chronic antral gastritis Chronic pain Chronic pain of both lower extremities Diastolic dysfunction New Cardio disagrees, 09/2021. Per Cardio (Chris), 09/2018 ... June 29, 2010: LVEDP 23 mm mercury. January 31, 2000. LVEDP 7 mm mercury, rising to 21 mm mercury after 1 L normal saline over 10 minutes. Wedge pressure 19 mm mercury .. mild pulmonary hypertension on right heart catheterization (40-45 MmHG). Hx recurrent pericarditis/ pericardial effusion, Sjogren's syndrome. Dysphagia Edema due to congestive heart failure Doubting CHF as full reason for edema (New Cardio, 09/2021).Acute on chronic, presumed CHF.. following diuresis per Dr. Perez direction, 06/2021. Edema of thigh resolved with [facility] admission/care Fatigue severe, sudden onset, napped x hours this week (2' fluconazole?) Femoroacetabular impingement of both hips Former smoker Quit 05/2009 Herpes simplex Hip effusion, right Aspirated, Ortho, 06/2021 Hyperlipidemia (07/23/12) Hx declining statin? Increased BMI (body mass index) (05/11/17) Morbid [place] [facility] [place] [facility] 04/21/21 note Left carpal tunnel syndrome Lichen sclerosus et atrophicus Halbetasol per [facility], 01/2021. (2019. Patient advised to begin topical steroid to vulva) Lipoma of left upper extremity Localized osteoarthritis of right knee Low back pain Neoplasm of uncertain behavior of skin (05/15/14) Left forehead, status post excision with primary closure. Seborrheic keratosis by final pathology. 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 T[facility] ([facility]) shows borderline/normal results. 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 Perez on 01/06/20 Posterior tibial tendon dysfunction, left Restless leg syndrome Screening mammography declined 12/2020 EO Severe obstructive sleep apnea 06/13/21 Sleep study note Severe right groin pain x 2 weeks, with Hx low grade discomfort x months. Hx UrSling. Rt thigh pain described. Shortness of breath Sialoadenitis (10/31/13) Skin lesion of neck Snoring Stopped smoking with greater than 40 pack year history Strain of muscle of right groin region Tobacco dependence Unilateral primary osteoarthritis, left knee Surgical History Abdominal hysterectomy ENDOMETRIOSIS; ONE OVARY REMAINS Colonoscopy - IV Sedation (04/25/16) History of ankle surgery hardware present History of arthroplasty of finger of left hand History of bunionectomy of both great toes History of carpal tunnel surgery of left wrist History of colpocleisis History of suburethral sling procedure 12/18/18 Vaginectomy/colpocleisis with Posterior colporrhapy and transobturator [place] [facility] [place]x of appendectomy Hx of thumb surgery Prolapse of female pelvic organs Stage III post hysterectomy vaginal prolapse with stress incontinence. [place] [facility] [place] Status post abdominal hysterectomy Status post tonsillectomy 2017? Tonsillectomy Family History Mother , AGE 91 Alzheimer disease Father , AGE 86 Essential hypertension AAA (abdominal aortic aneurysm) Alzheimer disease Heart disease Hyperlipidemia Bladder cancer Sister No problems noted. Maternal Grandfather , SHOT AGE 35 No problems noted. Paternal Grandfather , AGE 93 Heart disease Maternal Grandmother , AGE 64 Uterine cancer Paternal Grandmother , AGE 73 AAA (abdominal aortic aneurysm) Stroke Son No problems noted. Son Asthma Son No problems noted. Social History Smoking/Tobacco Use Status: Former Tobacco Use Tobacco: How many years used: 45 Smoking risk assessment performed?: Yes Alcohol Intake: current Alcohol Intake frequency: holidays/special occasions only Alcohol type: beer and wine Drug use: Never Substance use type: does not use Counseling given: No Counseling provided: other Adopted: No Caregiver/Support person: No Foster care: No Household members: none Housing: house Number of Children: 3 number of grandchildren: 6 Communication Needs: None Education Level: college Details: Associate's Degree Do you need help understanding health information?: Never 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[place] Pets and animals: No Sexually active: No Do you think of yourself as: straight/heterosexual Current gender identity: female What is your relationship status?: How often do you talk on the phone with friends or family?: three or more times per week How often do you get together with friends or relatives?: twice per week Do you belong to any clubs or organized social groups?: yes Panel score (0-1 are the most socially isolated patients): 2 What type of physical activity do you participate in: weight lifting and occasional exercise Duration: > 90 minutes/day Frequency: daily Any/Mandaeism: Yazidi Special any needs: No Seatbelt use: always Helmet use: No Drive intox or ride w/intox sprinkler driver: No Do you feel safe at home: Yes Do you feel safe in your relationship?: Yes Additional Social history: lives alone Female Reproductive History Menstrual Menopause type: surgical History History 3 Para Hx # Term Pregnancies 3 Multiple births Hx # Pregnancies Ectopic pregnancies AB induced Hx Number of Living Children AB spontaneous Exam Narrative Exam Narrative: Physical Examination General: alert, awake, cooperative, resting comfortably, no acute distress HEENT: normocephalic, atraumatic; PERRL, EOM intact, conjunctiva normal; no nasal discharge; moist mucous membranes, oral and pharyngeal mucosa normal, tolerating secretions Neck: supple, trachea midline; discomfort along trapezius, no midline spinal tenderness Chest: normal to inspection Respiratory: normal respiratory effort, speaking in full sentences, clear to auscultation, no wheezing, rales or rhonchi Cardiac: regular rate, regular rhythm, S1S2 intact, no murmurs rubs or gallops GI: abdomen soft, non-tender, non-distended; no palpable mass or hepatosplenomegaly Skin: no lesions, rashes or trauma appreciated Neuro: AAOx3, normal speech, moving all extremities; cranial nerves II through XII intact, 5 out of 5 strength upper and lower extremities Psych: Appropriate mood and affect Course Vital Signs Vital signs: Vital Signs Temperature 36.3 C L 03/04/22 23:14 Pulse 76 03/04/22 23:14 Respiratory Rate 21 11/25/22 23:14 Blood Pressure 121/97 H 03/04/22 23:14 Pulse Oximetry 98 03/04/22 23:14 Temperature 36.3 C L 03/04/22 23:14 Temperature Source Temporal Artery Scan 03/04/22 23:14 Pulse 76 03/04/22 23:14 Respiratory Rate 21 03/04/22 23:14 Respiratory Effort 03/04/22 23:14 Blood Pressure 121/97 H 03/04/22 23:14 Blood Pressure Position Supine 03/04/22 23:14 Pulse Oximetry 98 03/04/22 23:14 Oxygen Delivery Method Room Air 03/04/22 23:14 Oxygen Flow Rate 0 03/04/22 23:14 Pain Level 10 03/04/22 23:14
[2022-03-05] VITALS (16 sets, daily range): BP systolic 135–179; BP diastolic 61–124; PULSE 68–83; RESP 14–24; TEMP 36.3; O2SAT 88–99
[2022-03-05] MEDS: LORazepam 2 MG/ML VIAL 0.5 MG IVP
[2022-03-05] MEDS: Lidocaine 5% Patch 1 PATCH TP
[2022-03-05 00:03] LABS: ALT 19 U/L (14-59); AST 12 U/L (15-37); Albumin 3.3 g/dL (3.4-5.0); Alkaline Phosphatase 73 U/L (46-116); Anion Gap 5.8 mmol/L (3-11); BUN 15 mg/dL (7-18); Bilirubin, Total 0.3 mg/dL (0.2-1.0); CO2 30.2 mmol/L (21.0-32.0); CREATININE 1.5 mg/dL (0.55-1.02); Calcium 8.9 mg/dL (8.5-10.1); Chloride 103 mmol/L (98-107); Estimated GFR 35.89 (mL/min/1.73m2); Glucose 92 mg/dL (74-106); Potassium 3.6 mmol/L (3.5-5.1); Sodium 139 mmol/L (136-145); Total Protein 7.1 g/dL (6.4-8.2)
[2022-03-05] MEDS: Omnipaque 350 MG/ML 100 ML BTL IJ (00:08)
[2022-03-05] MEDS: Normal Saline - Diluent 50 ML VIAL IJ (00:09)
[2022-03-05] MEDS: ACETAMINOPHEN 1,000 MG/100 ML BTL 400 MG IVPB (00:21)
--- NOTE | 2022-03-05 00:56 | DI.VRAD_ITS ---
PROCEDURE INFORMATION: Exam: CTA Head Without And With Contrast, Arteriography Exam date and time: 03/05/2022 12:00 AM Age: 76 years old Clinical indication: Neck pain, occipital headache; Recent surg to remove pulmonary emboli TECHNIQUE: Imaging protocol: Computed tomographic angiography of the head without and with contrast. Exam focused on the arteries. 3D rendering (Not supervised by radiologist): MIP and/or 3D reconstructed images were created by the technologist. Radiation optimization: All CT scans at this facility use at least one of these dose optimization techniques: automated exposure control; mA and/or kV adjustment per patient size (includes targeted exams where dose is matched to clinical indication); or iterative reconstruction. Contrast material: OMNI 350; Contrast volume: 100 ml; Contrast route: INTRAVENOUS (IV); COMPARISON: CT SINUS WO 11/14/2019 7:51 AM FINDINGS: ANTERIOR CIRCULATION: Right internal carotid artery: Intracranial segment is patent with no significant stenosis or occlusion. No aneurysm. Right middle cerebral artery: No occlusion or significant stenosis. No aneurysm. Right anterior cerebral artery: No occlusion or significant stenosis. No aneurysm. Left internal carotid artery: Intracranial segment is patent with no significant stenosis. No aneurysm. Left middle cerebral artery: No occlusion or significant stenosis. No aneurysm. Left anterior cerebral artery: No occlusion or significant stenosis. No aneurysm. POSTERIOR CIRCULATION: Right vertebral artery: No occlusion or significant stenosis. No aneurysm. Left vertebral artery: No occlusion or significant stenosis. No aneurysm. Basilar artery: No occlusion or significant stenosis. No aneurysm. Right posterior cerebral artery: No occlusion or significant stenosis. No aneurysm. Left posterior cerebral artery: No occlusion or significant stenosis. No aneurysm. HEAD: Brain: No acute intracranial hemorrhage. Mild diffuse cerebral atrophy. No mass effect or midline shift. No extra-axial fluid collection. Cerebral ventricles: Ventricular prominence in this patient with mild diffuse cerebral atrophy. Bones/joints: Unremarkable. No acute fracture. Paranasal sinuses: No significant disease of the paranasal sinuses. Mastoid air cells: No mastoiditis. Soft tissues: Unremarkable. IMPRESSION: 1. No acute intracranial findings on initial unenhanced images. 2. CTA head within normal limits. No large vessel occlusion. No aneurysm. PROCEDURE INFORMATION: Exam: CTA Neck Without And With Contrast Exam date and time: 03/05/2022 12:00 AM Age: 76 years old Clinical indication: Neck pain, occipital headache; Recent surg to remove pulmonary emboli TECHNIQUE: Imaging protocol: Computed tomographic angiography of the neck without and with contrast. 3D rendering (Not supervised by radiologist): MIP and/or 3D reconstructed images were created by the technologist. Radiation optimization: All CT scans at this facility use at least one of these dose optimization techniques: automated exposure control; mA and/or kV adjustment per patient size (includes targeted exams where dose is matched to clinical indication); or iterative reconstruction. Contrast material: OMNI 350; Contrast volume: 100 ml; Contrast route: INTRAVENOUS (IV); COMPARISON: CT CHEST PE CTA 02/24/2022 12:47 PM FINDINGS: Right common carotid artery: No stenosis. No dissection or occlusion. Right internal carotid artery: No stenosis of the extracranial segment. No dissection or occlusion. Right external carotid artery: No occlusion or stenosis of the origin. Left common carotid artery: No stenosis. No dissection or occlusion. Left internal carotid artery: Small amount of calcific plaque in the origin of the left internal carotid artery without stenosis or occlusion. Left external carotid artery: No occlusion or stenosis of the origin. Right vertebral artery: No stenosis. No dissection or occlusion. Left vertebral artery: No stenosis. No dissection or occlusion. Soft tissues: No significant soft tissue swelling. Bones/joints: No acute fracture. IMPRESSION: No arterial dissection, arterial occlusion, or significant arterial stenosis. REFERENCES: NASCET CRITERIA. The degree of stenosis in the cervical segment of the internal carotid artery is based on NASCET criteria. Normal is no stenosis. Mild is less than 50% stenosis. Moderate is 50-69% stenosis. Severe is 70% to 99% stenosis. Total occlusion is no detectable patent lumen. Dictated and Authenticated by: Rocael Wheeler MD. Ordering:MARIFER Fernandez MD
== END 2022-03-05 02:10 | disposition home or self-care (01) ==
PROVIDERS: Emergency Provider Emergency Medicine; PCP Student in an Organized Health Care Education/Training Program
DX: M54.2 Cervicalgia (principal); R51.9 Headache, unspecified; I50.9 Heart failure, unspecified; I26.99 Other pulmonary embolism without acute cor pulmonale; Z79.01 Long term (current) use of anticoagulants
CPT/HCPCS: 36415; 70496; 70498; 80053; 96374; 96375; 99285; 85025; 99284; J0131; J2060; J3490

== ENCOUNTER 2022-03-07 03:21 | Outpatient (CLI) | payer MEDICARE, SELFPAY ==
[2022-03-07 14:18] LABS: HGB 10.7 g/dL (11.2-15.7)
[2022-03-07 14:56] LABS: Anion Gap 6.4 mmol/L (3-11); BUN 16 mg/dL (7-18); CO2 31.6 mmol/L (21.0-32.0); CREATININE 1.2 mg/dL (0.55-1.02); Calcium 9.4 mg/dL (8.5-10.1); Chloride 102 mmol/L (98-107); Estimated GFR 46.91 (mL/min/1.73m2); Glucose 80 mg/dL (74-106); Potassium 3.4 mmol/L (3.5-5.1); Sodium 140 mmol/L (136-145)
[2022-03-10 14:04] LABS: Lab Add On Test DONE
[2022-03-10 14:21] LABS: Magnesium 2.2 mg/dL (1.8-2.4)
== END 2022-03-07 03:22 | disposition home or self-care (01) ==
LOC: LBO 03:21
PROVIDERS: PCP Student in an Organized Health Care Education/Training Program; Visit Provider Student in an Organized Health Care Education/Training Program
DX: D62 Acute posthemorrhagic anemia (principal); R07.89 Other chest pain; N18.9 Chronic kidney disease, unspecified; N17.9 Acute kidney failure, unspecified
CPT/HCPCS: 36415; 80048; 83735; 85018

== ENCOUNTER 2022-03-17 01:35 | Outpatient (CLI) | payer MEDICARE, SELFPAY ==
[2022-03-17 11:59] LABS: HGB 11.1 g/dL (11.2-15.7)
[2022-03-17 12:14] LABS: Calcium 9.5 mg/dL (8.5-10.1)
[2022-03-17 12:15] LABS: Anion Gap 9.2 mmol/L (3-11); BUN 15 mg/dL (7-18); CO2 28.8 mmol/L (21.0-32.0); CREATININE 1.3 mg/dL (0.55-1.02); Chloride 105 mmol/L (98-107); Estimated GFR 42.62 (mL/min/1.73m2); Glucose 95 mg/dL (74-106); Sodium 143 mmol/L (136-145)
--- NOTE | 2022-03-17 15:15 | DI.US_ITS ---
Exam(s) US HERNIA EXAM: US HERNIA CLINICAL HISTORY: Rt groin pain, R10.31, eval for hernia POST groin access for thrombectomy. TECHNIQUE: Ultrasound was performed using standard protocol. COMPARISON: No exams were available for comparison FINDINGS: Sonographic assessment utilizing grayscale and color Doppler imaging was performed and targeted to th e area of clinical concern. The right inguinal region was evaluated sonographically. The right renal artery and vein are unremar kable with normal waveforms. No findings to suggest a pseudoaneurysm or fistula are seen. There is a fluid tract extending from the skin surface corresponding to the arterial access site. There is no internal blood flow. This may represent a small hematoma. It does not appear to communicate with e ither the artery or vein. IMPRESSION: 1. No evidence of a pseudoaneurysm or fistula. 2. Linear fluid tract from the skin surface at the arterial access site in the right inguinal region. This may represent a small hematoma. 3. Findings were discussed with Dr. Maldonado at 3:45 p.m. on 03/17/2022. DATA REPOSITORY:
== END 2022-03-17 01:36 | disposition home or self-care (01) ==
PROVIDERS: PCP Student in an Organized Health Care Education/Training Program; Visit Provider Student in an Organized Health Care Education/Training Program
DX: D62 Acute posthemorrhagic anemia (principal); N17.9 Acute kidney failure, unspecified; N18.9 Chronic kidney disease, unspecified; R10.31 Right lower quadrant pain
CPT/HCPCS: 36415; 76857; 80048; 85018

== ENCOUNTER 2022-03-17 15:35 | Outpatient (REF) | payer MEDICARE, SELFPAY | END 2022-03-17 15:36 | disposition home or self-care (01) | LOC: LBN 15:35 | PROVIDERS: PCP Student in an Organized Health Care Education/Training Program; Visit Provider Student in an Organized Health Care Education/Training Program | DX: I97.638 Postprocedural hematoma of a circulatory system organ or structure following other circulatory system procedure; R10.31 Right lower quadrant pain; Z79.01 Long term (current) use of anticoagulants; Z86.711 Personal history of pulmonary embolism | CPT/HCPCS: 87070 ==

== ENCOUNTER → 2022-03-18 09:18 | Outpatient (BNVA) | payer MEDICARE, SELFPAY | PROVIDERS: PCP Student in an Organized Health Care Education/Training Program; Referring Provider Student in an Organized Health Care Education/Training Program; Visit Provider Surgery | DX: R10.31 Right lower quadrant pain (principal); I97.638 Postprocedural hematoma of a circulatory system organ or structure following other circulatory system procedure; Z98.890 Other specified postprocedural states; Z79.01 Long term (current) use of anticoagulants; I26.99 Other pulmonary embolism without acute cor pulmonale | CPT/HCPCS: 99214; 99243 ==

== ENCOUNTER 2022-04-07 02:23 | Outpatient (CLI) | payer MEDICARE, SELFPAY ==
[2022-04-07 13:20] LABS: Abs Immature Grans 0.02 10^3/uL (0.0-0.06); Absolute Basophil Count 0.04 10^3/uL (0.0-0.2); Absolute Eosinophil Count 0.26 10^3/uL (0.0-0.7); Absolute Lymphocyte Count 3.14 10^3/uL (1.2-3.4); Absolute Monocyte Count 0.89 10^3/uL (0.1-0.8); Absolute Neutrophil Count 3.63 10^3/uL (1.2-6.7); Basophils % 0.5; Eosinophils % 3.3; HCT 35.3 % (36.0-46.0); HGB 10.9 g/dL (11.2-15.7); Immature Grans % 0.3; Lymphocytes % 39.3; MCHC 30.9 % (32.0-36.0); MCV 91 fL (80-95); MPV 8.9 fL (8.0-11.0); Monocytes % 11.2; Neutrophils % 45.4; Platelet Count 255 10^3/uL (130-400); RBC 3.89 10^6/uL (3.93-5.22); WBC 7.98 10^3/uL (4.4-10.8)
[2022-04-07 14:00] LABS: Albumin 3.7 g/dL (3.4-5.0); Anion Gap 6.2 mmol/L (3-11); BUN 17 mg/dL (7-18); CO2 29.8 mmol/L (21.0-32.0); CREATININE 1.3 mg/dL (0.55-1.02); Calcium 9.1 mg/dL (8.5-10.1); Chloride 103 mmol/L (98-107); Estimated GFR 42.62 (mL/min/1.73m2); Glucose 88 mg/dL (74-106); Potassium 4.1 mmol/L (3.5-5.1); Sodium 139 mmol/L (136-145); TSH (W/Ref FT4) 1.82 uIU/mL (0.36-3.74)
== END 2022-04-07 02:24 | disposition home or self-care (01) ==
LOC: LBO 02:24
PROVIDERS: PCP Student in an Organized Health Care Education/Training Program; Visit Provider Student in an Organized Health Care Education/Training Program
DX: E46 Unspecified protein-calorie malnutrition (principal); R53.1 Weakness; R60.0 Localized edema; R62.7 Adult failure to thrive; R79.89 Other specified abnormal findings of blood chemistry; E03.9 Hypothyroidism, unspecified; R53.83 Other fatigue; R93.89 Abnormal findings on diagnostic imaging of other specified body structures
CPT/HCPCS: 36415; 80048; 82040; 84443; 85025

== ENCOUNTER 2022-04-18 03:07 | Outpatient (CLI) | payer MEDICARE, SELFPAY ==
[2022-04-18 10:09] LABS: HCT 36.8 % (36.0-46.0); HGB 11.5 g/dL (11.2-15.7); MCHC 31.3 % (32.0-36.0); MCV 90 fL (80-95); MPV 8.5 fL (8.0-11.0); Platelet Count 236 10^3/uL (130-400); RBC 4.11 10^6/uL (3.93-5.22); WBC 7.05 10^3/uL (4.4-10.8)
[2022-04-18 10:56] LABS: Anion Gap 5.7 mmol/L (3-11); BUN 20 mg/dL (7-18); CO2 31.3 mmol/L (21.0-32.0); CREATININE 1.4 mg/dL (0.55-1.02); Calcium 9.6 mg/dL (8.5-10.1); Calculated LDL 127 mg/dL (<100); Chloride 103 mmol/L (98-107); Cholesterol 230 mg/dL (<200); Estimated GFR 38.99 (mL/min/1.73m2); Glucose 106 mg/dL (74-106); HDL Cholesterol 76 mg/dL (40-60); Potassium 4.3 mmol/L (3.5-5.1); Sodium 140 mmol/L (136-145); Triglyceride 136 mg/dL (<150)
== END 2022-04-18 03:08 | disposition home or self-care (01) ==
LOC: LBO 03:07
PROVIDERS: PCP Student in an Organized Health Care Education/Training Program; Visit Provider Student in an Organized Health Care Education/Training Program
DX: D64.9 Anemia, unspecified (principal); R09.02 Hypoxemia; N18.30 Chronic kidney disease, stage 3 unspecified; I25.10 Atherosclerotic heart disease of native coronary artery without angina pectoris; Z13.220 Encounter for screening for lipoid disorders
CPT/HCPCS: 36415; 80048; 80061; 85027

== ENCOUNTER 2022-05-16 01:44 | Outpatient (CLI) | payer MEDICARE, SELFPAY ==
--- NOTE | 2022-05-16 07:30 | DI.CT_ITS ---
Exam(s) CT ABDOMEN PELVIS WO EXAM: CT ABDOMEN PELVIS WO CLINICAL HISTORY: evaluate hernia,ruq abd pain, r10.11,k44.9. TECHNIQUE: Imaging Protocol: Axial computed tomography images with coronal and sagittal reformatted images were created and reviewed. COMPARISON: CT CT ABDOMEN PELVIS WO from 10/29/[address] CHEST PE CTA from 02/24/[address] BRAIN NECK CTA from 03/05/2022 FINDINGS: ABDOMEN: Lung Bases: There is a large hiatal hernia. Liver: Normal density. No measurable mass. Gallbladder and biliary tract: There are gallstones present. There is no biliary ductal dilatation. Pancreas: Normal density, no abnormal calcifications or inflammatory process. Spleen: Normal. Kidneys: Normal size, contour and axis.No radiodense stones or obstructive uropathy. No masses seen. Adrenal glands: There is a stable left adrenal nodule. The right adrenal gland is unremarkable. Lymph nodes: Within normal limits. Abdominal Aorta: Abdominal portion non-dilated. Atherosclerosis is present. PELVIS: Bladder:Grossly unremarkable, however portions of the urinary bladder not well visualized due to the artifact from the bilateral total hip replacements. Bowel: There is diverticulosis seen in the colon but no evidence of acute diverticulitis. There is n o evidence of bowel obstruction or bowel wall thickening. No evidence of appendicitis. Peritoneal cavity: No ascites, collection or mesenteric inflammatory response. No free air. Reproductive organs: Status post hysterectomy. Bones: Within normal limits. There are bilateral total hip arthroplasties. Soft Tissues: There is no evidence of an anterior abdominal wall hernia. No evidence of an inguinal hernia. IMPRESSION: 1. No evidence of an anterior abdominal wall hernia. 2. Cholelithiasis. No biliary ductal dilatation. 3. Colonic diverticulosis but no evidence of acute diverticulitis. RADIATION DOSE DELIVERED: 1,301.54mGy.cm Total DLP DATA REPOSITORY: All CT scans at this facility are submitted to the National Radiology Data Registry (NRDR) Dose Index Registry (DIR) with the [employer] (ACR). RADIATION OPTIMIZATION: All CT scans at this facility use at least one of these dose optimization te chniques: automated exposure control; mA and/or kV adjustment per patient size (includes targeted exa ms where dose is matched to clinical indication); or iterative reconstruction.
== END 2022-05-16 02:04 ==
LOC: DI 01:45
PROVIDERS: PCP Student in an Organized Health Care Education/Training Program; Visit Provider Student in an Organized Health Care Education/Training Program
DX: R10.11 Right upper quadrant pain (principal); K44.9 Diaphragmatic hernia without obstruction or gangrene; K80.20 Calculus of gallbladder without cholecystitis without obstruction; K57.32 Diverticulitis of large intestine without perforation or abscess without bleeding
CPT/HCPCS: 74176

== ENCOUNTER 2022-06-09 01:52 | Outpatient (CLI) | payer MEDICARE, SELFPAY ==
--- NOTE | 2022-06-09 08:00 | DI.MAMMO_ITS ---
Exam(s) MAMMO SCREENING EXAM: MAMMO SCREENING CLINICAL HISTORY: screening,z12.39 TECHNIQUE: Bilateral full field digital CC and MLO mammographic images were obtained with 3D tomosyn thesis and utilizing computer aided detection (CAD). COMPARISON: Available for comparison. FINDINGS: Masses/Architectural Distortion: There is a new focal small nodule posterior to the nipple on the rig ht CC view 5.4 cm from the nipple. There is stable nodule seen in the left breast. No suspicious ar eas of architectural distortion are present. Microcalcifications: No suspicious pleomorphic-type are seen. Skin Thickening/Nipple Retraction: None. IMPRESSION: 1. New small nodule posterior to the nipple on the CC view. 2. This area should be further evaluated with a spot compression view. Complete right breast ultraso und may be obtained at that time. BI-RADS Category 0 - Assessment Incomplete: Need additional imaging evaluation Breast Density - Category B - Scattered areas of fibroglandular density Breast density category C or D implies that the patient has dense breast tissue. Dense breast tissue is very common and is not abnormal but dense breast tissue can make it harder to find cancer on a ma mmogram. Also, dense breast tissue may increase their breast cancer risk. This information about the result of the mammogram report was provided to the patient to raise their awareness. Use this report when you speak with the patient about their risks for breast cancer, which includes their family hist ory. At that time, you may recommend for more screening tests (Ultrasound or MRI) as they might be us eful based on their risk. A negative radiographic report should not delay biopsy if a dominant or clinically suspicious mass is present. Up to ten percent of cancers are not identified on mammography. A negative report may reinforce clinical impression. Adenosis and dense breasts may obscure an underlying neoplasm. False positive reports average 6 to 10%. Patient will receive a letter notifying them of these results.
== END 2022-06-09 02:12 ==
LOC: DI 01:53
PROVIDERS: PCP Student in an Organized Health Care Education/Training Program; Visit Provider Student in an Organized Health Care Education/Training Program
DX: Z12.31 Encounter for screening mammogram for malignant neoplasm of breast (principal); R92.8 Other abnormal and inconclusive findings on diagnostic imaging of breast
CPT/HCPCS: 77063; 77067

== ENCOUNTER 2022-06-14 02:09 | Outpatient (CLI) | payer MEDICARE, SELFPAY ==
--- NOTE | 2022-06-14 07:30 | DI.US_ITS ---
Exam(s) US ABDOMEN LIMITED EXAM: US ABDOMEN LIMITED CLINICAL HISTORY: RUQ pain, tenderness. eval GB path,hiatal hernia,k44.9,h/o hepatic lesion TECHNIQUE: Ultrasound abdomen performed using standard protocol. COMPARISON: Prior CT scan 05/16/2022 FINDINGS: There is no ascites evident. LIVER: There are no hepatic lesions evident nor dilatation of intrahepatic ducts. GALLBLADDER/BILIARY: Small mobile gallstones noted. No gallbladder wall edema nor pericholecystic fl uid. The common hepatic duct isnot dilated, measuring 3-4mm at the level of jayashree hepatis. PANCREAS: There is no evidence of pancreatic mass nor dilatation of the pancreatic duct. RIGHT KIDNEY:No evidence of solid mass, calculus, nor hydronephrosis. No cortical cysts evident. IMPRESSION: 1. Cholelithiasis. There are few small shadowing mobile gallstones noted. No gallbladder wall gifty a. Common hepatic duct not dilated. 2. No other significant ultrasound findings in the right upper quadrant. 3. There is no ascites. DATA REPOSITORY:
== END 2022-06-14 02:29 ==
LOC: DI 02:12
PROVIDERS: PCP Student in an Organized Health Care Education/Training Program; Visit Provider Student in an Organized Health Care Education/Training Program
DX: R10.11 Right upper quadrant pain (principal); K44.9 Diaphragmatic hernia without obstruction or gangrene; K80.20 Calculus of gallbladder without cholecystitis without obstruction
CPT/HCPCS: 76705

== ENCOUNTER 2022-06-14 02:12 | Outpatient (CLI) | payer MEDICARE, SELFPAY ==
--- NOTE | 2022-06-14 | DI.US_ITS ---
Exam(s) MG MAMMO SCREEN CALL BACK UNI US BREAST RT COMPLETE EXAM: MG MAMMO SCREEN CALL BACK UNI-RIGHT AND COMPLETE RIGHT BREAST ULTRASOUND CLINICAL HISTORY: F/U MAMMO, NEW SMALL NODULE POSTERIOR TO NIPPLE RT BREAST, R92.8. TECHNIQUE: Unilateral RIGHT BREAST spot mammographic images obtained with 3D tomosynthesisand utiliz ing computer aided detection (CAD). . Complete RIGHT breast Ultrasound was also performed, including all 4 quadrants, the retroareolar vandana on, and the ipsilateral axilla. COMPARISON: Prior mammograms were reviewed. This additional imaging was performed due to findings described on the recent screening mammogram of 223. FINDINGS: DIAGNOSTIC MAMMOGRAM: Additional mammographic views performed todayrender this area less concerning.Finding has appearance of a probable benign intramammary lymph node. COMPLETE RIGHT BREAST ULTRASOUND: Ultrasound performed today reveals no evidence of solid or significant cystic lesions in all 4 quadra nts. This implies that the finding on the mammogram is probably a benign intramammary lymph node.. Scanning of the ipsilateral axilla reveals no significant adenopathy. IMPRESSION: 1. Benign findings, as described above. Appropriate follow-up as discussed by myself with the patient today is repeat right breast mammogram in 6 months. The patient was informed of these findings and recommendations by myself prior to leaving the departm ent today. BI-RADS Category 3 - 6 month - Probably Benign Finding: Recommend follow-up mammography in 6 months Breast Density - Category B - Scattered areas of fibroglandular density Breast density Category C or D implies that the patient has dense breast tissue. Dense breast tissue can make it harder to find cancer on a mammogram. Dense breast tissue is also associated with an incr eased risk of breast cancer. This information about the result of the mammogram report was provided to the patient to raise their awareness. Use this report when you speak with the patient about their risks for breast cancer, which includes their family history. At that time, you may recommend additional screening tests (Ultrasoun d or MRI) as these tests may add significant information. A negative radiographic report should not delay biopsy if a dominant or clinically suspicious mass is present. Up to ten percent of cancers are not identified on mammography. A negative report may reinforce clinical impression. Adenosis and dense breasts may obscure an underlying neoplasm. False positive reports average 6 to 10%. Patient will receive a letter notifying them of these results.
== END 2022-06-14 02:32 ==
LOC: DI 02:13
PROVIDERS: PCP Student in an Organized Health Care Education/Training Program; Visit Provider Student in an Organized Health Care Education/Training Program
DX: Z12.31 Encounter for screening mammogram for malignant neoplasm of breast (principal); R92.8 Other abnormal and inconclusive findings on diagnostic imaging of breast; N64.59 Other signs and symptoms in breast
CPT/HCPCS: 76642; 77063; 77067

== ENCOUNTER 2022-07-28 02:47 | Outpatient (CLI) | payer MEDICARE, SELFPAY ==
--- NOTE | 2022-07-28 13:00 | DI.CT_ITS ---
Exam(s) CT CHEST WO EXAM: CT CHEST WO CLINICAL HISTORY: f/u nodule, LUNG NODULE < [address], R91.1. TECHNIQUE: Imaging protocol: Axial computed tomography images were obtained and coronal and sagittal reformatted images were created and reviewed. CONTRAST MATERIAL: Noncontrast COMPARISON: CT CT CHEST PE CTA from 02/24/[address] ABDOMEN PELVIS WO from 05/16/2022 FINDINGS: Pulmonary parenchyma: No consolidation. No suspicious nodules. Emphysema: None. Tracheobronchial tree: No mucous plugging. No bronchiectasis . Interstitial changes: Mild linear left basilar scarring. Mild scarring or atelectasis infero medial right middle lobe and lingula. Mild apical scarring. Pleura: No effusion or pneumothorax. Heart: The heart is not dilated. The coronary arteries show mildcalcifications. Aorta: Thoracic aorta non-dilated. Mildatherosclerotic changes. Lymph nodes: No enlarged lymph nodes. Bones: Degenerative changes are seen. No evidence of compression fracture. Upper abdomen: Large hiatal hernia. Fatty liver. Cholelithiasis. Some pancreatic atrophy. Stable prominence of left adrenal gland. IMPRESSION: No evidence of suspicious pulmonary nodules. No acute abnormality. RADIATION DOSE DELIVERED: 822.61mGy.cm Total DLP 822.61mGy.cm Total DLP DATA REPOSITORY: All CT scans at this facility are submitted to the National Radiology Data Registry (NRDR) Dose Index Registry (DIR) with the [employer] (ACR). RADIATION OPTIMIZATION: All CT scans at this facility use at least one of these dose optimization te chniques: automated exposure control; mA and/or kV adjustment per patient size (includes targeted exa ms where dose is matched to clinical indication); or iterative reconstruction.
== END 2022-07-28 03:07 ==
LOC: DI 02:47
PROVIDERS: PCP Student in an Organized Health Care Education/Training Program; Visit Provider Student in an Organized Health Care Education/Training Program
DX: R91.1 Solitary pulmonary nodule (principal)
CPT/HCPCS: 71250

== ENCOUNTER 2022-08-08 13:36 | Outpatient (CLI) | payer MEDICARE, SELFPAY ==
--- NOTE | 2022-08-08 14:56 | DI.US_ITS ---
APPROVED REPORT EXAM: Comprehensive 2D, Doppler, and color-flow Echocardiogram Patient Location: Out-Patient Activity Therapy Teacher: Lexi Capellan RDCS (AE) Indications: Evaluate heart function, post PE, CAD Other Information Study Quality: Adequate Conclusion Normal left ventricular wall thickness and chamber size. Estimated ejection fraction is 60%. Wall m otion is normal Normal right ventricular size and systolic function Both atria are normal in size There is no structural or hemodynamically significant valvular disease Wall motion Left Ventricle The left ventricle is normal size. The left ventricular systolic function is normal. The left ventric ular ejection fraction is within the normal range. There is normal left ventricular wall thickness. T here is normal LV segmental wall motion. There is no ventricular septal defect visualized. LVEF is 60 %. Right Ventricle The right ventricle is normal size. The right ventricular systolic function is normal. Atria The left atrium size is normal. The right atrium size is normal. The interatrial septum is intact wit h no evidence for an atrial septal defect. Aortic Valve The aortic valve is normal in structure. Aortic valve is trileaflet. There is no aortic valvular sten osis. No aortic regurgitation is present. Mitral Valve The mitral valve is normal in structure. No evidence of mitral valve stenosis. Trace to mild mitral r egurgitation. Tricuspid Valve The tricuspid valve is normal in structure. There is no tricuspid valve stenosis. Trace tricuspid reg urgitation. Unable to assess PA pressure. Pulmonic Valve The pulmonary valve is normal in structure. There is no pulmonic valvular stenosis. Trace pulmonic re gurgitation. Great Vessels The aortic root is normal in size. The ascending aorta is normal in size. Aortic arch is not well vis ualized. IVC is normal in size and collapses >50% with inspiration. Pericardium There is no pericardial effusion. Prominent anterior epicardial fat pad is present. 2D Dimensions IVSD d PLAX 0.94 cm F: 0.6-1.0 LV Vol A2C d MOD 96.9 mL LVPW d PLAX 0.96 cm F: 0.6 - 1.0 LV Vol A4C d MOD 105.4 mL LVID d PLAX 4.88 cm F: 3.8 - 5.2 LA vol/ BSA A2C s A-L 22.2 mL/m2 LVDs 3.35 cm F: 2.2 - 3.5 LA vol/ BSA A4C s A-L 28.7 mL/m2 Ao Root d 2.40 cm F: 2.7 - 3.3 LA Vol/ BSA Biplane s A-L 27.7 mL/m2 RA Area A4C 11.87 cm2 LA Area A4C s MOD 20.61 cm2 RA Vol/ BSA A4C s A-L 12.2 mL/m2 LA Area A2C s MOD 16.49 cm2 Ao Asc Diam d 3.35 cm F: 2.3 - 3.1 LV EF A4C MOD 59.3 % LV EF Teichholz 58.5 % LV EF A2C MOD 60.8 % LVEF (Paz's) 58.24 % F: 54 - 74 LV EF Biplane MOD 58.2 % LV Volume 75.66 mL F: 46 - 106 SV 59.67 mL LV Volume Index 36.02 mL/m2 F: 29 - 61 SV Index 28.46 mL/m2 LV Vol Biplane MOD 102.5 mL FS 30.90 % M-Mode TAPSE 2.61 cm (M/F) >1.7 LV Diastology MV E' medial 0.109 (>0.07 m/s) E/A Ratio 1.0 LV E/e MED 7.85 (<14) MV E Vmax 0.86 (0.4-1.3 m/s) MV E' lateral 0.112 (>0.1 m/s) MV A Vmax 0.90 (0.4-1.3 m/s) LV E/e LAT 7.65 (<14) MV E/A Ratio 0.94 MV E/E' medial 7.89 MV E/E' lateral 7.66 Aortic Valve LVOT Area 2.96 cm2 AoV Area Vmax 2.51 cm2 LVOT Vmax 1.62 m/s AoV Area/ BSA (Vmax) 1.20 cm2/m2 LVOT Mean Smith. 1.02 m/s RASHIDA Mean Smith. 2.66 cm2 LVOT Peak Grad 10.5 mmHg RASHIDA Mean Smith. Index 1.27 cm2/m2 LVOT Mean Grad 4.9 mmHg LVOT VTI 0.328 m LVOT Diam s 1.90 cm AoV Vmax 1.91 m/s Velocity Ratio 0.85 AoV Mean Smith. 1.13 m/s AoV Peak Grad 14.5 mmHg LVOT SV 97.16 mL AoV Mean Grad 6.1 mmHg AoV VTI 0.351 m AoV Area VTI 2.77 cm2 AoV Area/ BSA (VTI) 1.32 cm/m2 Mitral Valve MV DT 155 (160-240 msec) MV PHT 45 msec MV Area PHT 4.90 cm2 MV VTI 0.423 m MV Area VTI 2.30 (4.0-6.0 cm2) Pulmonary Valve PV Vmax 1.01 (0.5-1.5 m/s) RVOT Peak Gr. 2.23 mmHg PV Peak Grad 4.1 mmHg RVOT Mean Gr. 1.20 mmHg PV Mean Grad 2.3 mmHg RVOT VTI 0.167 m PV VTI 0.237 m RVOT Vmax 0.75 m/s
== END 2022-08-08 13:56 ==
PROVIDERS: PCP Student in an Organized Health Care Education/Training Program; Visit Provider Student in an Organized Health Care Education/Training Program
DX: I25.10 Atherosclerotic heart disease of native coronary artery without angina pectoris (principal)
CPT/HCPCS: 93306

== ENCOUNTER → 2022-08-11 08:46 | Outpatient (BNVA) | payer MEDICARE, SELFPAY | PROVIDERS: PCP Student in an Organized Health Care Education/Training Program; Referring Provider Student in an Organized Health Care Education/Training Program; Visit Provider Student in an Organized Health Care Education/Training Program | DX: M70.62 Trochanteric bursitis, left hip (principal) | CPT/HCPCS: 20610; J1040 ==

== ENCOUNTER 2022-10-14 02:15 | Outpatient (CLI) | payer MEDICARE, SELFPAY ==
[2022-10-14 12:29] LABS: Anion Gap 6.5 mmol/L (3-11); BUN 18 mg/dL (7-18); CO2 32.5 mmol/L (21.0-32.0); CREATININE 1.4 mg/dL (0.55-1.02); Calcium 9.6 mg/dL (8.5-10.1); Chloride 105 mmol/L (98-107); Estimated GFR 38.99 (mL/min/1.73m2); Glucose 94 mg/dL (74-106); Hemoglobin A1C 5.6 % (<5.7); Magnesium 2.1 mg/dL (1.8-2.4); Potassium 4.2 mmol/L (3.5-5.1); Sodium 144 mmol/L (136-145)
[2022-10-14 12:56] LABS: Calculated LDL 144 mg/dL (<100); Cholesterol 238 mg/dL (<200); Ferritin 44 ng/mL (8-252); Glucose 94 mg/dL (74-106); HDL Cholesterol 76 mg/dL (40-60); Triglyceride 93 mg/dL (<150); Vitamin B12 240 pg/mL (193-986)
[2022-10-14 13:10] LABS: Vitamin D 25 Total 53.5 ng/mL (30-100)
[2022-10-17 09:40] LABS: Insulin 18.4 uIU/mL (<29.0)
== END 2022-10-14 02:16 | disposition home or self-care (01) ==
PROVIDERS: PCP Student in an Organized Health Care Education/Training Program; Visit Provider Surgery
DX: R73.03 Prediabetes (principal); E66.01 Morbid (severe) obesity due to excess calories; N18.30 Chronic kidney disease, stage 3 unspecified
CPT/HCPCS: 36415; 80048; 80061; 82306; 82947; 82607; 82728; 83036; 83525; 83735; 84443

== ENCOUNTER 2022-12-01 12:39 | Outpatient (CLI) | payer MEDICARE, SELFPAY ==
[2022-12-01 12:45] LABS: Abs Immature Grans 0.01 10^3/uL (0.0-0.06); Absolute Basophil Count 0.03 10^3/uL (0.0-0.2); Absolute Eosinophil Count 0.15 10^3/uL (0.0-0.7); Absolute Lymphocyte Count 2.84 10^3/uL (1.2-3.4); Absolute Monocyte Count 0.68 10^3/uL (0.1-0.8); Absolute Neutrophil Count 3.34 10^3/uL (1.2-6.7); Basophils % 0.4; Eosinophils % 2.1; HCT 40.3 % (36.0-46.0); HGB 12.7 g/dL (11.2-15.7); Immature Grans % 0.1; Lymphocytes % 40.3; MCH 29.6 pg (27.0-33.0); MCHC 31.5 % (32.0-36.0); MCV 94 fL (80-95); MPV 8.3 fL (8.0-11.0); Monocytes % 9.6; Neutrophils % 47.5; Platelet Count 234 10^3/uL (130-400); RBC 4.29 10^6/uL (3.93-5.22); RDW-SD 44.5 fL; WBC 7.05 10^3/uL (4.4-10.8)
[2022-12-01 12:56] LABS: Lipase 34 U/L (16-77)
[2022-12-01 13:02] LABS: ALT 25 U/L (14-59); AST 17 U/L (15-37); Albumin 3.8 g/dL (3.4-5.0); Alkaline Phosphatase 77 U/L (46-116); Anion Gap 6.2 mmol/L (3-11); BUN 18 mg/dL (7-18); Bilirubin, Direct 0.1 mg/dL (0.0-0.2); Bilirubin, Total 0.3 mg/dL (0.2-1.0); CO2 32.8 mmol/L (21.0-32.0); CREATININE 1.5 mg/dL (0.55-1.02); Calcium 9.5 mg/dL (8.5-10.1); Chloride 101 mmol/L (98-107); Estimated GFR 35.67 (mL/min/1.73m2); Glucose 94 mg/dL (74-106); Sodium 140 mmol/L (136-145); Total Protein 7.5 g/dL (6.4-8.2)
[2022-12-01 21:37] LABS: Iron 53 ug/dL (50-170)
== END 2022-12-01 12:40 | disposition home or self-care (01) ==
LOC: LBO 12:39
PROVIDERS: PCP Student in an Organized Health Care Education/Training Program; Visit Provider Student in an Organized Health Care Education/Training Program
DX: R09.02 Hypoxemia; G25.81 Restless legs syndrome; K90.9 Intestinal malabsorption, unspecified; N18.2 Chronic kidney disease, stage 2 (mild); Z79.899 Other long term (current) drug therapy; Z86.2 Personal history of diseases of the blood and blood-forming organs and certain disorders involving the immune mechanism
CPT/HCPCS: 36415; 80048; 80076; 83690; 83540; 83550; 85025

== ENCOUNTER → 2022-12-02 00:21 | Outpatient (CLI) | payer MEDICARE, SELFPAY ==
--- NOTE | 2022-12-02 06:30 | DI.US_ITS ---
Exam(s) US ABDOMEN RENAL EXAM: US ABDOMEN RENAL CLINICAL HISTORY: evaluate GB, Gallstones; ? hydronephrosis,RT FLANK TENDERNESS,PAIN,ABD PAIN TECHNIQUE: Ultrasound abdomen performed using standard protocol. COMPARISON: CT CT ABDOMEN PELVIS WO from 05/16/2022 FINDINGS: ABDOMINAL AORTA AND IVC: Visualized portions normal caliber. PANCREAS: Normal where visualized. LIVER: There is diffuse fatty infiltration of the liver. The liver measures 17.4 cm long. No hepati c mass is seen sonographically. Hepatopedal flow in the Portal Vein. GALLBLADDER: Mobile gallstones are present. No evidence of wall thickening. No pericholecystic fluid identified. BILIARY SYSTEM: Common bile duct measures < 7 mm. No intrahepatic biliary ductal dilation. FARRIS'S SIGN: Negative. SPLEEN: Not enlarged. ASCITES: None seen. Renal size in cm: Right: 9.7. Left: 10.7. Echogenicity: Normal. Hydronephrosis: No. Cyst or mass: No. Nephrolithiasis: No. Other findings: None. Bladder:Normal. Ureteral jets: Right: Visualized and unremarkable. Left: Visualized and unremarkable. Prevoid vol:70 cc Postvoid vol:0 cc Renal color flow: Symmetric and within normal limits. IMPRESSION: 1. Fatty infiltration of the liver. 2. Cholelithiasis. No evidence of acute cholecystitis. 3. No evidence of nephrolithiasis or hydronephrosis. DATA REPOSITORY:
== END ==
PROVIDERS: PCP Student in an Organized Health Care Education/Training Program; Visit Provider Student in an Organized Health Care Education/Training Program
DX: K76.0 Fatty (change of) liver, not elsewhere classified (principal); K80.00 Calculus of gallbladder with acute cholecystitis without obstruction
CPT/HCPCS: 76770; 76700

== ENCOUNTER → 2022-12-16 00:20 | Outpatient (CLI) | payer MEDICARE, SELFPAY ==
--- NOTE | 2022-12-16 07:30 | DI.MAMMO_ITS ---
Exam(s) MAMMO DIAGNOSTIC UNI EXAM: MAMMO DIAGNOSTIC UNI CLINICAL HISTORY: diagnostic, 6 mo f/u, r93.89. TECHNIQUE: Craniocaudal and mediolateral oblique Full Field Digital Mammography views of the right b reast with Computer Aided Diagnosis followed by Tomosynthesis. COMPARISON: Comparison is made with prior examinations. FINDINGS: Mammography/Tomosynthesis: Masses/Architectural Distortion: None seen. Microcalcifictions: No suspicious pleomorphic-type are seen. Skin Thickening/Nipple Retraction: None. IMPRESSION: 1. No evidence of malignancy is noted. 2. Unless there is more urgent need, follow-up screening mammography is recommended, as per [employer] guidelines. 3. The findings were discussed with the patient on the date of the examination. BI-RADS Category 1 - Negative Breast Density - Category B - Scattered areas of fibroglandular density Breast density Category C or D implies that the patient has dense breast tissue. Dense breast tissue can make it harder to find cancer on a mammogram. Dense breast tissue is also associated with an incr eased risk of breast cancer. This information about the result of the mammogram report was provided to the patient to raise their awareness. Use this report when you speak with the patient about their risks for breast cancer, which includes their family history. At that time, you may recommend additional screening tests (Ultrasoun d or MRI) as these tests may add significant information. A negative radiographic report should not delay biopsy if a dominant or clinically suspicious mass is present. Up to ten percent of cancers are not identified on mammography. A negative report may reinforce clinical impression. Adenosis and dense breasts may obscure an underlying neoplasm. False positive reports average 6 to 10%. Patient will receive a letter notifying them of these results.
== END ==
PROVIDERS: PCP Student in an Organized Health Care Education/Training Program; Visit Provider Student in an Organized Health Care Education/Training Program
DX: R93.89 Abnormal findings on diagnostic imaging of other specified body structures (principal); Z12.31 Encounter for screening mammogram for malignant neoplasm of breast
CPT/HCPCS: 77061; 77065; G0279

== ENCOUNTER 2023-01-16 15:30 | Outpatient (CLI) | payer MEDICARE, SELFPAY ==
--- NOTE | 2023-01-16 12:45 | DI.RAD_ITS ---
Exam(s) XR HIP PELVIS ADULT BL EXAM: XR HIP PELVIS ADULT BL CLINICAL HISTORY: annual f/u s/p BILAT THAs. TECHNIQUE: 2D digital imaging was performed. Three views. COMPARISON: CR XR HIP RT 1V from 01/28/2022 CR XR HIP LT COMPLETE AP PELVIS from 01/28/2022 FINDINGS: BONES: No acute fracture is present. No bony destructive lesion is seen. JOINTS: No dislocation present. There has been no change in the alignment of the of the bilateral hi p prostheses. SOFT TISSUE: Normal. IMPRESSION: Stable appearance of bilateral hip prostheses. DATA REPOSITORY: RADIATION DOSE DELIVERED:
== END 2023-01-16 15:31 | disposition home or self-care (01) ==
LOC: DIORS 02-09 13:02
PROVIDERS: PCP Student in an Organized Health Care Education/Training Program; Visit Provider Student in an Organized Health Care Education/Training Program
DX: Z96.643 Presence of artificial hip joint, bilateral (principal); Z47.1 Aftercare following joint replacement surgery
CPT/HCPCS: 73521; 99213

== ENCOUNTER → 2023-02-07 12:53 | Outpatient (BNVA) | payer MEDICARE, SELFPAY | PROVIDERS: PCP Student in an Organized Health Care Education/Training Program; Referring Provider Student in an Organized Health Care Education/Training Program; Visit Provider Surgery | DX: L98.9 Disorder of the skin and subcutaneous tissue, unspecified (principal) | CPT/HCPCS: 99213 ==

== ENCOUNTER 2023-03-15 02:41 | Outpatient (CLI) | payer MEDICARE, SELFPAY ==
[2023-03-15 11:12] LABS: HCT 40.6 % (36.0-46.0); HGB 12.7 g/dL (11.2-15.7)
[2023-03-15 11:22] LABS: Prothrombin Time 10.5 sec (9.1-11.1)
[2023-03-15 11:36] LABS: Anion Gap 7.2 mmol/L (3-11); BUN 22 mg/dL (7-18); CO2 29.8 mmol/L (21.0-32.0); CREATININE 1.5 mg/dL (0.55-1.02); Calcium 9.3 mg/dL (8.5-10.1); Chloride 102 mmol/L (98-107); Estimated GFR 35.67 (mL/min/1.73m2); Glucose 88 mg/dL (74-106); Potassium 4.3 mmol/L (3.5-5.1); Sodium 139 mmol/L (136-145)
== END 2023-03-15 02:42 | disposition home or self-care (01) ==
LOC: LBO 02:41
PROVIDERS: Absent Provider Student in an Organized Health Care Education/Training Program; PCP Student in an Organized Health Care Education/Training Program; Referring Provider Student in an Organized Health Care Education/Training Program; Visit Provider Student in an Organized Health Care Education/Training Program
DX: N18.30 Chronic kidney disease, stage 3 unspecified (principal); D64.9 Anemia, unspecified; Z79.01 Long term (current) use of anticoagulants
CPT/HCPCS: 36415; 80048; 85014; 85018; 85610

== ENCOUNTER 2023-04-17 14:48 | Outpatient (CLI) | payer MEDICARE, SELFPAY ==
--- NOTE | 2023-04-17 13:15 | DI.RAD_ITS ---
Exam(s) XR TIB/FIB RT EXAM: XR TIB/FIB RT CLINICAL HISTORY: right leg pain. TECHNIQUE: 2D digital imaging was performed of the right tibia and fibula. Two images were obtained. AP and lateral views were obtained. COMPARISON: CR XR KNEE RT 3V AP,LAT,JUNIOR from 11/08/2019 FINDINGS: BONES: No acute fracture is present. No bony destructive lesion is seen. Moderate degenerative change s are seen in the medial femoral tibial joint with joint space narrowing and osteophytes present. Th ere are 2 orthopedic screws seen in the distal fibula. No suspicious lucencies are seen in or about the orthopedic hardware. SOFT TISSUE: Normal. IMPRESSION: No acute abnormality. DATA REPOSITORY: RADIATION DOSE DELIVERED:
== END 2023-04-17 14:49 | disposition home or self-care (01) ==
LOC: DIORS 14:48
PROVIDERS: PCP Student in an Organized Health Care Education/Training Program; Visit Provider Student in an Organized Health Care Education/Training Program
DX: M70.62 Trochanteric bursitis, left hip; G57.31 Lesion of lateral popliteal nerve, right lower limb; Z96.643 Presence of artificial hip joint, bilateral
CPT/HCPCS: 99213; 73590

== ENCOUNTER 2023-06-15 15:51 | Outpatient (CLI) | payer MEDICARE, SELFPAY ==
--- NOTE | 2023-06-15 15:15 | DI.RAD_ITS ---
Exam(s) XR KNEE LT 3V AP,LAT,JUNIOR EXAM: XR KNEE LT 3V AP,LAT,JUNIOR CLINICAL HISTORY: LEFT KNEE PAIN. TECHNIQUE: 2D digital imaging was performed. Three views. COMPARISON: Left knee 08 November 2019 FINDINGS: BONES: No acute fracture is present. No bony destructive lesion is seen. JOINTS: Moderate to severe narrowing of the medial femoral tibial joint space with some worsening sin ce the prior exam. Increased sclerosis in the medial femoral condyle. Mild periarticular spurring. Lateral femoral tibial joint is maintained. No joint effusion is seen. SOFT TISSUE: Normal. IMPRESSION: Moderate severe degenerative changes medial femoral tibial joint. DATA REPOSITORY: RADIATION DOSE DELIVERED:
== END 2023-06-15 15:52 | disposition home or self-care (01) ==
LOC: DIORS 15:52
PROVIDERS: PCP Student in an Organized Health Care Education/Training Program; Referring Provider Student in an Organized Health Care Education/Training Program; Visit Provider Student in an Organized Health Care Education/Training Program
DX: M17.12 Unilateral primary osteoarthritis, left knee
CPT/HCPCS: 20610; 73562; J1040

== ENCOUNTER → 2023-07-20 04:25 | Outpatient (CLI) | payer MEDICARE, SELFPAY ==
--- NOTE | 2023-07-20 08:00 | DI.RAD_ITS ---
Exam(s) XR CERVICAL SP COMP W FLEX/EXT EXAM: XR CERVICAL SP COMP W FLEX/EXT CLINICAL HISTORY: eval spacing, bony path, curvature,neck pain, m54.2. TECHNIQUE: 2D digital imaging was performed. Eight images were obtained. AP, odontoid, lateral, flex ion, extension and bilateral oblique images were obtained. COMPARISON: CR CERV SP.WITH OBL OR FLEX/EXT from 12/24/2012 FINDINGS: The odontoid is intact. The lateral masses are well aligned. There is straightening of the normal ce rvical lordosis. The alignment of the cervical spine is unchanged compared to the prior examination. There is minimal anterolisthesis of C3 on C4 which is stable. There is disc space narrowing at C5- 6 and C6-C7. Endplate osteophytes are seen from C4-5 through C7-T1. Multilevel degenerative changes of the facets are present. No acute fracture or subluxation is present. No significant subluxation is seen with flexion or extension. No significant neural foraminal stenosis is present. The cervical thoracic junction is well maintained. The prevertebral soft tissues are unremarkable. Lung apices a re clear. IMPRESSION: Moderate degenerative changes seen in the cervical spine as described above. DATA REPOSITORY: RADIATION DOSE DELIVERED:
== END ==
PROVIDERS: PCP Student in an Organized Health Care Education/Training Program; Visit Provider Student in an Organized Health Care Education/Training Program
DX: M50.322 Other cervical disc degeneration at C5-C6 level; M50.323 Other cervical disc degeneration at C6-C7 level; M47.812 Spondylosis without myelopathy or radiculopathy, cervical region
CPT/HCPCS: 36415; 80048; 72052

== ENCOUNTER 2023-07-20 05:37 | Outpatient (CLI) | payer MEDICARE, SELFPAY ==
[2023-07-20 13:16] LABS: BUN 21 mg/dL (7-18); CREATININE 1.4 mg/dL (0.55-1.02); Calcium 9.5 mg/dL (8.5-10.1); Chloride 103 mmol/L (98-107); Estimated GFR 38.75 (mL/min/1.73m2); Glucose 82 mg/dL (74-106); Potassium 4.2 mmol/L (3.5-5.1); Sodium 142 mmol/L (136-145)
== END 2023-07-20 05:38 | disposition home or self-care (01) ==
LOC: LBO 05:37
PROVIDERS: PCP Student in an Organized Health Care Education/Training Program; Visit Provider Student in an Organized Health Care Education/Training Program
DX: I10 Essential (primary) hypertension (principal)
CPT/HCPCS: 36415; 80048

== ENCOUNTER → 2023-08-14 13:29 | Outpatient (BNVA) | payer MEDICARE, SELFPAY | PROVIDERS: PCP Student in an Organized Health Care Education/Training Program; Referring Provider Student in an Organized Health Care Education/Training Program; Visit Provider Student in an Organized Health Care Education/Training Program | DX: M17.12 Unilateral primary osteoarthritis, left knee (principal); M70.61 Trochanteric bursitis, right hip | CPT/HCPCS: 20610; J1010; J7318 ==

== ENCOUNTER 2023-08-22 13:33 | Outpatient (REF) | payer MEDICARE, SELFPAY ==
--- NOTE | 2023-08-22 13:50 | LABIA_PTH ---
PATIENT: Fe Ibanez LOC: [facility] U#:[id number] AGE/SX: 77/F ROOM: RE08/22/[address]: Emeli Tavares : 1945 BED: DIS: 08/22/2023 SPEC #: [id number] RECD: 08/22/23 17:26 STATUS: DEMIAN RELouis #: [id number] MICHAEL: 08/22/23 13:[address]: Emeli Tavares DEPT: Surgical Specimen RECD BY: Kassy Gilmore ENTERED: 08/22/23 17:26 SP TYPE: LABIA OTHR DR: Mariajose Cuenca DO Tissues: 1 - LABIA BX 2 - LABIA BX Procedures: GROSS AND MICRO LEVEL 4 Comments: [id number]
== END 2023-08-22 13:34 | disposition home or self-care (01) ==
LOC: LBN 13:33
PROVIDERS: PCP Student in an Organized Health Care Education/Training Program; Visit Provider Obstetrics & Gynecology Gynecology
DX: L90.0 Lichen sclerosus et atrophicus (principal); M35.00 Sjogren syndrome, unspecified
CPT/HCPCS: 88305

== ENCOUNTER → 2023-10-03 01:55 | Outpatient (CLI) | payer MEDICARE, SELFPAY ==
--- NOTE | 2023-10-03 07:30 | DI.MRI_ITS ---
Exam(s) MR LOWER JOINT RT WO EXAM: MR LOWER JOINT RT WO CLINICAL HISTORY: RT KNEE PAIN,M25.561. TECHNIQUE: Multiplanar multisequence MRI was performed. COMPARISON: CR XR KNEE LT 3V AP,LAT,JUNIOR from 06/15/2023 FINDINGS: BONES: There is no fracture or contusion pattern. JOINTS: Moderate-sized joint effusion is present. Articular cartilage: Patellofemoral joint: Cartilage thinning and irregularity at the lateral patell ar femoral joint. Mild lateral patellar subluxation. Medial femoral tibial joint: Thinning of the cartilage extending down to involving underlying bone. Periarticular spurring. Mild spurring at the lateral femoral condyle. Lateral femoral tibial joint: Mild cartilage irregularity TENDONS: Extensor mechanism: Unremarkable. Medial retinaculum: Unremarkable. Lateral retinaculum: Unremarkable. Popliteus: Unremarkable. MUSCLES: Unremarkable. MENISCI: The menisci are peripherally displaced consistent with degenerative changes. Medial meniscus appears diminutive. Degenerative intrasubstance signal. No focal tear visible. SOFT TISSUES: Edema anterior to patellar tendon. LIGAMENTS: Anterior Cruciate: Unremarkable. Posterior Cruciate: Unremarkable. Medial Collateral:Unremarkable. Lateral Collateral: Unremarkable. IMPRESSION: Advanced degenerative changes of the medial femoral tibial joint. Moderate degenerative changes of t he lateral patellofemoral joint. Degenerative changes of both menisci, medial greater than lateral. DATA REPOSITORY:
== END ==
PROVIDERS: PCP Student in an Organized Health Care Education/Training Program; Visit Provider Student in an Organized Health Care Education/Training Program
DX: M25.561 Pain in right knee (principal)
CPT/HCPCS: 73721

== ENCOUNTER → 2023-10-05 15:51 | Outpatient (CLI) | payer MEDICARE, SELFPAY ==
--- NOTE | 2023-10-05 12:15 | DI.RAD_ITS ---
Exam(s) XR CHEST 2V PA LATERAL EXAM: XR CHEST 2V PA LATERAL CLINICAL HISTORY: Ongoing cough J20.9 BRONCHITIS R05.9 COUGH TECHNIQUE: 2D digital imaging was performed of the chest. Two images were obtained. PA and lateral views were obtained. COMPARISON: CR,XR XR CHEST 2V PA LATERAL from 09/09/2021 CR,XR XR PORTABLE CHEST AP from 02/18/2022 FINDINGS: MEDIASTINUM: Normal. HEART: Normal. PULMONARY VASCULATURE: Normal. LUNGS: No focal consolidating infiltrates. PLEURAL SPACE: No pleural effusion or pneumothorax. BONE:Within normal limits for the patient's age. OTHER FINDINGS:Normal. IMPRESSION: No acute pulmonary findings. DATA REPOSITORY: RADIATION DOSE DELIVERED:
== END ==
PROVIDERS: PCP Student in an Organized Health Care Education/Training Program; Visit Provider Nurse Practitioner Adult Health
DX: J20.9 Acute bronchitis, unspecified (principal); R05.9 Cough, unspecified
CPT/HCPCS: 71046

== ENCOUNTER 2023-10-09 10:58 | Outpatient (CLI) | payer MEDICARE, SELFPAY ==
--- NOTE | 2023-10-09 10:45 | DI.RAD_ITS ---
Exam(s) XR SHOULDER RT COMPLETE 2+V EXAM: XR SHOULDER RT COMPLETE 2+V CLINICAL HISTORY: eval R shoulder pain. TECHNIQUE: 2D digital imaging was performed of the right shoulder. Three images were obtained. Gra hanane, Y-view and axillary views were obtained. COMPARISON: CR RIGHT SHOULDER COMPLETE from 03/27/2012 FINDINGS: BONES: No acute fracture is present. No bony destructive lesion is seen. JOINTS: No dislocation present. The joint spaces are well maintained. SOFT TISSUE: Normal. IMPRESSION: Unremarkable radiographs of the right shoulder. DATA REPOSITORY: RADIATION DOSE DELIVERED:
== END 2023-10-09 10:59 | disposition home or self-care (01) ==
LOC: DIORS 10:58
PROVIDERS: PCP Student in an Organized Health Care Education/Training Program; Referring Provider Student in an Organized Health Care Education/Training Program; Visit Provider Student in an Organized Health Care Education/Training Program
DX: M75.81 Other shoulder lesions, right shoulder (principal); M17.12 Unilateral primary osteoarthritis, left knee; M17.11 Unilateral primary osteoarthritis, right knee
CPT/HCPCS: 20610; J1010; 73030

== ENCOUNTER → 2023-10-18 00:17 | Outpatient (CLI) | payer MEDICARE, SELFPAY ==
--- NOTE | 2023-10-18 08:00 | DI.US_ITS ---
Exam(s) US EXTREMITY VENOUS BI EXAM: US EXTREMITY VENOUS BI CLINICAL HISTORY: edema, tenderness, ? lymphadenopathy,? lipidema,r60.9. TECHNIQUE: Bilateral lower extremity venous ultrasound performed using grayscale, color-flow, and sp ectral Doppler analysis. COMPARISON: No exams were available for comparison FINDINGS: The bilateral common femoral, femoral and popliteal veins demonstrate normal compressibility, augment ation, and color Doppler. The posterior tibial veins are patent. IMPRESSION: Right: Negative for DVT Left: Negative for DVT DATA REPOSITORY:
--- NOTE | 2023-10-18 08:00 | DI.US_ITS ---
Exam(s) US SOFT TISS EXTREMITY/GROIN EXAM: US SOFT TISS EXTREMITY/GROIN CLINICAL HISTORY: evaluate tenderness; possibly lymph node?,? lipidema vs adipose tissue,. TECHNIQUE: Ultrasound was performed using standard protocol. COMPARISON: No exams were available for comparison FINDINGS: Sonographic assessment utilizing grayscale and color Doppler imaging was performed and targeted to th e area of clinical concern. Adipose tissue is noted. There is no evidence of lymph node, focal lipoma or fluid collection. IMPRESSION: No abnormalities are identified . DATA REPOSITORY:
== END ==
PROVIDERS: PCP Student in an Organized Health Care Education/Training Program; Visit Provider Student in an Organized Health Care Education/Training Program
DX: R59.1 Generalized enlarged lymph nodes (principal); M79.669 Pain in unspecified lower leg; R60.9 Edema, unspecified; R60.0 Localized edema
CPT/HCPCS: 36415; 76882; 80053; 85027; 83880; 84443; 93970

== ENCOUNTER 2023-10-18 02:25 | Outpatient (CLI) | payer MEDICARE, SELFPAY ==
[2023-10-18 14:09] LABS: HCT 42.1 % (36.0-46.0); HGB 13.5 g/dL (11.2-15.7); MCH 31.5 pg (27.0-33.0); MCHC 32.1 % (32.0-36.0); MCV 98 fL (80-95); MPV 8.3 fL (8.0-11.0); Platelet Count 235 10^3/uL (130-400); RBC 4.29 10^6/uL (3.93-5.22); RDW 13.4 % (11.7-14.6); RDW-SD 48.6 fL
[2023-10-18 15:20] LABS: ALT 22 U/L (14-59); AST 20 U/L (15-37); Albumin 3.7 g/dL (3.4-5.0); Alkaline Phosphatase 72 U/L (46-116); Anion Gap 6.5 mmol/L (3-11); BUN 25 mg/dL (7-18); CO2 32.5 mmol/L (21.0-32.0); CREATININE 1.7 mg/dL (0.55-1.02); Chloride 105 mmol/L (98-107); Glucose 118 mg/dL (74-106); Sodium 144 mmol/L (136-145); TSH (W/Ref FT4) 1.95 uIU/mL (0.36-3.74); Total Protein 7.4 g/dL (6.4-8.2)
[2023-10-18 16:40] LABS: NT-proBNP 133 pg/mL (<300)
== END 2023-10-18 02:26 | disposition home or self-care (01) ==
LOC: LBO 02:25
PROVIDERS: PCP Student in an Organized Health Care Education/Training Program; Visit Provider Student in an Organized Health Care Education/Training Program
DX: E03.9 Hypothyroidism, unspecified (principal); J98.4 Other disorders of lung; R68.89 Other general symptoms and signs; R53.83 Other fatigue; N18.9 Chronic kidney disease, unspecified; R06.02 Shortness of breath
CPT/HCPCS: 36415; 80053; 85027; 83880; 84443

== ENCOUNTER → 2023-10-30 14:58 | Outpatient (BNVA) | payer MEDICARE, SELFPAY | PROVIDERS: PCP Student in an Organized Health Care Education/Training Program; Referring Provider Student in an Organized Health Care Education/Training Program; Visit Provider Student in an Organized Health Care Education/Training Program | DX: M75.81 Other shoulder lesions, right shoulder (principal) | CPT/HCPCS: 20610; J1010 ==

== ENCOUNTER 2023-11-17 00:35 | Outpatient (CLI) | payer MEDICARE, SELFPAY ==
--- NOTE | 2023-11-17 07:30 | DI.MRI_ITS ---
Exam(s) MR UPPER JOINT RT WO EXAM: MR UPPER JOINT RT WO CLINICAL HISTORY: right rotator cuff tendinitis,m75.81 TECHNIQUE: Multiplanar multisequence MRI of the shoulder was performed. COMPARISON: MR MRI R UPPER JOINT WO CONT from 04/12/2012 CR XR SHOULDER RT COMPLETE 2+V from 10/09/2023 FINDINGS: Motion artifact evident on few sequences. MARROW:There is no evidence of fracture, Hill-Sachs deformity, nor ominous osseous lesions. GLENOHUMERAL JOINT: There is a moderate size glenohumeral joint effusion. Some synovial thickening i s evident posteriorly. There is significant articular cartilage loss in the glenoid fossa. Also ove r the humeral head. There are no degenerative subarticular cysts in the osseous glenoid and humeral head. ROTATOR CUFF MECHANISM: AC JOINT/ACROMIUM: Only mild degenerative changes evident in the AC joint... There is no evidence of os acromiale. Supraspinatus: There is an area of signal abnormality in the supraspinatus tendon consistent with par tial articular side surface tearing. Fluid signal at this level does not appear to completely jabari se the tendon thickness although there does appear to be a sliver of fluid in the overlying subacromi al bursa. There is no retraction of the musculotendinous junction. No obvious muscle atrophy. Infraspinatus: Mild tendinitis signal. No tear. No atrophy. Teres Minor: Intact. No evidence of tear nor muscle atrophy. Subscapularis/anterior cuff: Significant tendinosis signal. There is some partial-thickness tearing as well as a small area of full-thickness tearing. No abnormal intraosseous signal in the coracoid p rocess nor in the lesser tuberosity. BICEPS TENDON: Exhibits normal position within the intertubercular groove. No tenosynovitis. LABRUM: Blunting of the superior labrum noted consistent with superficial tearing. Also blunting of the posterior labrum. Anterior labrum appears relatively intact. Inferior labrum and inferior gleno humeral ligament appears somewhat attenuated. QUADRILATERAL SPACE: No evidence of mass in the region of the axillary nerve and dorsal circumflex hu meral vessels. Visualized triceps muscle at this level appears unremarkable. IMPRESSION: 1. Study interpretation is limited by motion artifact. 2. There is partial thickness articular side tearing of the supraspinatus and there is both high-grad e partial tearing and some full-thickness tearing of the anterior cuff-subscapularis. There is some tendinitis signal evident in the infraspinatus but no tear of the infraspinatus. 3. Multilevel labral abnormalities but difficult to assess accurately with the amount of motion artif act here. 4. Moderate size joint effusion. Synovial thickening. Moderate degenerative changes in the glenohu meral joint. Other findings as above. DATA REPOSITORY:
== END 2023-11-17 00:55 ==
LOC: DI 00:36
PROVIDERS: PCP Student in an Organized Health Care Education/Training Program; Visit Provider Student in an Organized Health Care Education/Training Program
DX: M75.81 Other shoulder lesions, right shoulder (principal)
CPT/HCPCS: 73221

== ENCOUNTER → 2023-11-23 10:35 | Outpatient (BNVA) | payer MEDICARE, SELFPAY | PROVIDERS: PCP Student in an Organized Health Care Education/Training Program; Referring Provider Student in an Organized Health Care Education/Training Program; Visit Provider Student in an Organized Health Care Education/Training Program | DX: M19.011 Primary osteoarthritis, right shoulder (principal) | CPT/HCPCS: 20611; J1010 ==

== ENCOUNTER 2023-12-20 03:49 | Outpatient (CLI) | payer MEDICARE, SELFPAY ==
[2023-12-20 13:38] LABS: HGB 12.8 g/dL (11.2-15.7)
[2023-12-20 14:11] LABS: ALT 18 U/L (14-59); AST 15 U/L (15-37); Albumin 3.6 g/dL (3.4-5.0); Alkaline Phosphatase 76 U/L (46-116); Anion Gap 5.3 mmol/L (3-11); BUN 21 mg/dL (7-18); Bilirubin, Total 0.35 mg/dL (0.2-1.0); CO2 32.7 mmol/L (21.0-32.0); CREATININE 1.4 mg/dL (0.55-1.02); Calcium 9.6 mg/dL (8.5-10.1); Chloride 103 mmol/L (98-107); Estimated GFR 38.51 (mL/min/1.73m2); Glucose 111 mg/dL (74-106); Magnesium 2.1 mg/dL (1.8-2.4); PHOSPHORUS 3.7 mg/dL (2.6-4.7); Potassium 3.8 mmol/L (3.5-5.1); Sodium 141 mmol/L (136-145); Total Protein 7.4 g/dL (6.4-8.2)
== END 2023-12-20 03:50 | disposition home or self-care (01) ==
LOC: LBO 03:49
PROVIDERS: PCP Student in an Organized Health Care Education/Training Program; Visit Provider Student in an Organized Health Care Education/Training Program
DX: I25.10 Atherosclerotic heart disease of native coronary artery without angina pectoris (principal); N18.9 Chronic kidney disease, unspecified; Z91.89 Other specified personal risk factors, not elsewhere classified
CPT/HCPCS: 36415; 80053; 83735; 84100; 85018

== ENCOUNTER 2024-01-03 01:50 | Outpatient (CLI) | payer MEDICARE, SELFPAY ==
--- NOTE | 2024-01-03 07:30 | DI.CT_ITS ---
Exam(s) CT UPPER EXTREMITY RT WO EXAM: CT UPPER EXTREMITY RT WO CLINICAL HISTORY: SURGICAL PLANNING,ARTHRITIS RT GLENOHUMERAL JOINT,M19.011. TECHNIQUE: Imaging Protocol: Axial computed tomography images with coronal and sagittal reformatted images were created and reviewed. COMPARISON: CR XR SHOULDER RT COMPLETE 2+V from 10/09/2023 MR MR UPPER JOINT RT WO from 11/17/2023 FINDINGS: Bones: There is narrowing of the glenohumeral joint. Mild degenerative changes are seen at the acro mioclavicular joint. Degenerative changes are seen in the visualized portions of the cervical and th oracic spine. No cellulitic or osteomyelitic changes are identified. The bones are normally mineral ized. No lytic or sclerotic lesions are identified. Soft Tissues: Normal. IMPRESSION: Narrowing of the glenohumeral joint and mild degenerative changes seen at the acromioclavicular joint . RADIATION DOSE DELIVERED: 343.36mGy.cm Total DLP 343.36mGy.cm Total DLP DATA REPOSITORY: All CT scans at this facility are submitted to the National Radiology Data Registry (NRDR) Dose Index Registry (DIR) with the [employer] ([employer]). RADIATION OPTIMIZATION: All CT scans at this facility use at least one of these dose optimization te chniques: automated exposure control; mA and/or kV adjustment per patient size (includes targeted exa ms where dose is matched to clinical indication); or iterative reconstruction.
== END 2024-01-03 02:10 ==
LOC: DI 01:51
PROVIDERS: PCP Student in an Organized Health Care Education/Training Program; Visit Provider Student in an Organized Health Care Education/Training Program
DX: M19.011 Primary osteoarthritis, right shoulder (principal)
CPT/HCPCS: 73200

== ENCOUNTER 2024-01-03 10:57 | Outpatient (CLI) | payer MEDICARE, SELFPAY ==
--- NOTE | 2024-01-03 | DI.US_ITS ---
Exam(s) US RENAL EXAM: US RENAL CLINICAL HISTORY: STAGE 3 CHRONIC KIDNEY DISEASE, N18.30, CARDIORENAL DISEASE, I13.10. TECHNIQUE: Guillaume scale, color and spectral Doppler were used. COMPARISON: US US ABDOMEN RENAL from 12/02/2022 US POCUS EXAM from 11/23/2023 FINDINGS: Renal size in cm: Right: 10.9. Left: 11.1. Echogenicity: Normal. Hydronephrosis: No. Cyst or mass: No. Nephrolithiasis: No. Other findings: There is bilateral renal cortical atrophy. Bladder:The bladder was incompletely distended. The bladder wall measured 6 mm. This may be due to underdistention. Ureteral jets: Right: Visualized and unremarkable. Left: Visualized and unremarkable. Prevoid vol:75 cc Postvoid vol:0 cc Renal color flow: Symmetric and within normal limits. IMPRESSION: 1. Bilateral renal cortical atrophy. 2. Diffuse thickening of the urinary bladder wall. This may be due to underdistention. Chronic blad joan outlet obstruction or cystitis may also have this appearance. Please correlate clinically and fo llow-up accordingly. DATA REPOSITORY:
== END 2024-01-03 11:17 ==
LOC: DI 11:06
PROVIDERS: PCP Student in an Organized Health Care Education/Training Program; Visit Provider Internal Medicine Nephrology
DX: M19.011 Primary osteoarthritis, right shoulder (principal)
CPT/HCPCS: 76770; 73200

== ENCOUNTER 2024-03-04 02:58 | Outpatient (CLI) | payer MEDICARE, SELFPAY ==
[2024-03-04] MEDS: Inhaler, Assist Device 1 EACH MC (13:59)
[2024-03-04] MEDS: Levalbuterol HFA 15 GM INH 4 PUFF IH (13:59)
--- NOTE | 2024-03-11 14:57 | W.PFT ---
Date of service: 03/04/24 Time of Service: 12:53 Pulmonary Function Test Result Indications: Restrictive lung disease Interpretation Spirometry: No airflow limitation. No bronchodilator response. Lung Volumes: Normal lung volumes Diffusion Capacity: Normal diffusion Airway Pressure: Normal airways resistance Impression Normal pulmonary function testing Clinical Correlation therefore is recommended.
== END 2024-03-04 02:59 | disposition home or self-care (01) ==
LOC: RT 02:58
PROVIDERS: PCP Student in an Organized Health Care Education/Training Program; Visit Provider Student in an Organized Health Care Education/Training Program
DX: R06.00 Dyspnea, unspecified (principal); J98.4 Other disorders of lung
CPT/HCPCS: 94060; 94726; 94729

== ENCOUNTER → 2024-03-18 14:29 | Outpatient (BNVA) | payer MEDICARE, SELFPAY | PROVIDERS: PCP Student in an Organized Health Care Education/Training Program; Referring Provider Student in an Organized Health Care Education/Training Program; Visit Provider Student in an Organized Health Care Education/Training Program | DX: M70.61 Trochanteric bursitis, right hip (principal); Z96.692 Finger-joint replacement of left hand | CPT/HCPCS: 20610; J1010 ==

== ENCOUNTER 2024-06-04 02:40 | Outpatient (CLI) | payer MEDICARE, SELFPAY ==
[2024-06-04 11:19] LABS: HCT 38.3 % (36.0-46.0); HGB 12.1 g/dL (11.2-15.7); MCH 30.9 pg (27.0-33.0); MCHC 31.6 % (32.0-36.0); MCV 98 fL (80-95); Platelet Count 214 10^3/uL (130-400); RBC 3.92 10^6/uL (3.93-5.22); RDW 13.2 % (11.7-14.6); RDW-SD 47.3 fL; WBC 6.82 10^3/uL (4.4-10.8)
[2024-06-04 11:54] LABS: ALT 19 U/L (14-59); AST 16 U/L (15-37); Albumin 3.6 g/dL (3.4-5.0); Alkaline Phosphatase 80 U/L (46-116); Anion Gap 3.8 mmol/L (3-11); BUN 19 mg/dL (7-18); Bilirubin, Total 0.36 mg/dL (0.2-1.0); CO2 32.2 mmol/L (21.0-32.0); CREATININE 1.3 mg/dL (0.55-1.02); Calcium 9.4 mg/dL (8.5-10.1); Chloride 106 mmol/L (98-107); Estimated GFR 42.09 (mL/min/1.73m2); Glucose 98 mg/dL (74-106); Potassium 4.3 mmol/L (3.5-5.1); Sodium 142 mmol/L (136-145); Total Protein 7.4 g/dL (6.4-8.2)
== END 2024-06-04 02:41 | disposition home or self-care (01) ==
PROVIDERS: PCP Nurse Practitioner; Referring Provider Nurse Practitioner; Visit Provider Nurse Practitioner
DX: R06.02 Shortness of breath (principal); R73.03 Prediabetes; E03.9 Hypothyroidism, unspecified; N18.32 Chronic kidney disease, stage 3b
CPT/HCPCS: 36415; 80053; 85027

== ENCOUNTER → 2024-07-11 09:50 | Outpatient (BNVA) | payer MEDICARE, SELFPAY | PROVIDERS: PCP Nurse Practitioner; Referring Provider Nurse Practitioner; Visit Provider Student in an Organized Health Care Education/Training Program | DX: M17.12 Unilateral primary osteoarthritis, left knee (principal) | CPT/HCPCS: 20610; 99213; J1010 ==

== ENCOUNTER 2024-10-07 15:41 | Outpatient (CLI) | payer MEDICARE, SELFPAY ==
--- NOTE | 2024-10-07 15:15 | DI.RAD_ITS ---
Exam(s) XR ANKLE RT COMPLETE EXAM: XR ANKLE RT COMPLETE CLINICAL HISTORY: right ankle pain. TECHNIQUE: 2D digital imaging was performed. Three views. COMPARISON: None FINDINGS: BONES: No acute fracture is present. No bony destructive lesion is seen. There are 2 screws in the distal fibula. There is mild spurring at the malleoli. Minimal enthesophyte at the Achilles insertion. JOINTS: The ankle mortise is normally aligned. The tibiotalar joint space is maintained. SOFT TISSUE: Lower leg edema. IMPRESSION: Lower leg edema. Mild degenerative changes at the malleoli. DATA REPOSITORY: RADIATION DOSE DELIVERED:
== END 2024-10-07 15:42 | disposition home or self-care (01) ==
PROVIDERS: PCP Nurse Practitioner; Referring Provider Nurse Practitioner; Visit Provider Student in an Organized Health Care Education/Training Program
DX: M25.571 Pain in right ankle and joints of right foot (principal); M70.61 Trochanteric bursitis, right hip; Z96.643 Presence of artificial hip joint, bilateral
CPT/HCPCS: 99213; 73610

== ENCOUNTER → 2024-10-14 13:14 | Outpatient (BNVA) | payer MEDICARE, SELFPAY | PROVIDERS: PCP Nurse Practitioner; Referring Provider Nurse Practitioner; Visit Provider Student in an Organized Health Care Education/Training Program | DX: M17.12 Unilateral primary osteoarthritis, left knee (principal) | CPT/HCPCS: 20610; J1010 ==

== ENCOUNTER 2024-10-23 14:13 | Outpatient (CLI) | payer MEDICARE, SELFPAY ==
--- NOTE | 2024-10-23 13:45 | DI.RAD_ITS ---
Exam(s) XR HIP RT COMPLETE AP PELVIS EXAM: XR HIP RT COMPLETE AP PELVIS CLINICAL HISTORY: RIGHT HIP PAIN. TECHNIQUE: 2D digital imaging was performed. COMPARISON: CR XR HIP PELVIS ADULT BL from 01/16/2023 FINDINGS: 3 views No evidence of pelvic fracture. Sacroiliac joints appear unremarkable. There are bilateral hip prostheses again noted. No evidence of fracture nor loosening of the prosthesis. Additional views of right hip prosthesis also appear unremarkable and unchanged. IMPRESSION: Stable satisfactory appearance of right hip prostheses. No fracture or loosening. Left hip prosthesis also again noted. The lower femoral stem component of the left hip prosthesis is not included in the field of view of these images. DATA REPOSITORY: RADIATION DOSE DELIVERED:
== END 2024-10-23 14:14 | disposition home or self-care (01) ==
LOC: DIORS 14:14
PROVIDERS: PCP Nurse Practitioner; Referring Provider Nurse Practitioner; Visit Provider Student in an Organized Health Care Education/Training Program
DX: M70.61 Trochanteric bursitis, right hip (principal); M76.31 Iliotibial band syndrome, right leg; Z96.643 Presence of artificial hip joint, bilateral; I10 Essential (primary) hypertension; Z79.01 Long term (current) use of anticoagulants; N18.30 Chronic kidney disease, stage 3 unspecified; Z79.85 Long-term (current) use of injectable non-insulin antidiabetic drugs
CPT/HCPCS: 99214; 73502

== ENCOUNTER 2024-11-14 10:20 | Day surgery (SDC) | payer MEDICARE, SELFPAY ==
[2024-11-14] VITALS (22 sets, daily range): BP systolic 110–145; BP diastolic 42–79; PULSE 58–76; RESP 11–18; TEMP 36.1–36.8; O2SAT 95–100; BMI 41.0
--- NOTE | 2024-11-14 07:20 | W.PM.DSUDISC ---
Date of service: 11/14/24 Discharge Plan Disposition Patient Disposition: Home Condition: Stable Discharge Details Attending Provider: Ellis Mabry Primary Care Provider: Elba Swartz Home Meds and New Rx's Prescriptions: New tramadol 50 mg tablet 50 mg PO Q8H PRN (Reason: severe pain) Qty: 12 0RF Continued ammonium lactate 12 % cream 1 applic topical BID Qty: 385 1RF Rx Instructions: Trial for dry skin, edema torsemide 20 mg tablet 40 mg PO DAILY MDD 60mg Qty: 180 3RF Patient Comments: pt only taking when she notices swelling because of her dislike of urinary frequency with this enoxaparin [Lovenox] 150 mg/mL syringe 150 mg subcut DAILY Qty: 3 0RF triamcinolone acetonide 0.5 % ointment 1 applic TP BID Qty: 15 4RF Rx Instructions: apply tiny amount to vulva twice daily for 2weeks then daily for two weeks then twice weekly. nitroglycerin 0.4 mg tablet, sublingual 0.4 mg sublingual Q5M PRN (Reason: chest pain) Qty: 30 1RF Rx Instructions: do not exceed 3 doses per episode losartan 100 mg tablet 100 mg PO DAILY Qty: 90 3RF Eliquis 5 mg tablet 5 mg PO BID Qty: 180 3RF Rx Instructions: Re-starting Eliquis vs warfarin per direction d/w PCP ropinirole 2 mg tablet 2 mg PO QHS Qty: 90 3RF Rx Instructions: administer 1-3 hours before bedtime sertraline 50 mg tablet 50 mg PO QHS Qty: 90 3RF Rx Instructions: Continue with 1 tab (50mg) daily. magnesium 250 mg tablet 250 mg PO DAILY Qty: 90 3RF Ozempic 1 mg/dose (4 mg/3 mL) pen injector 1 mg subcut QWEEK tramadol 50 mg tablet 50 mg PO DAILY PRN (Reason: pain) Qty: 20 2RF montelukast 10 mg tablet 10 mg PO DAILY Qty: 120 0RF cholecalciferol (vitamin D3) [Vitamin D3] 2,000 UNIT capsule 2,000 unit PO DAILY Patient Comments: 01/18/17-now takes 5000U/pps meclizine 25 mg tablet 12.5 - 25 mg PO TID PRN (Reason: dizziness) Qty: 30 4RF acetaminophen 500 mg tablet 500 mg PO Q6H PRN PRN (Reason: pain) Qty: 40 3RF Rx Instructions: [facility] recommended 1000 mg bid 01/26/22 halobetasol propionate 0.05 % ointment 1 applic topical BID Qty: 50 4RF Rx Instructions: apply tiny amount to vulvar bid for 2weeks then daily for 2weeks then twice weekly clobetasol 0.05 % solution See Rx Instructions topical BID PRN (Reason: active flaking itching scalp lesions) Qty: 200 1RF Rx Instructions: Approx 4 FTUs topically twice a day PRN all over scalp ciclopirox 1 % shampoo 10 ml topical .q3 days Qty: 300 1RF Rx Instructions: Continue for scalp lesions, x 4 weeks w/ 1 week off (restart prn) estradiol 0.01 % (0.1 mg/gram) cream 1 appful vaginal DAILY Patient Comments: 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 Rx Instructions: apply pea sized amount, alternating with ultravate oint to vulvar area levothyroxine 75 mcg tablet 75 mcg PO DAILY Qty: 90 3RF sennosides-docusate sodium [Senna with Docusate Sodium] 8.6-50 mg tablet 2 tab-cap PO BID ondansetron HCl 4 mg tablet 4 mg PO Q8H PRN (Reason: nausea and vomiting) Qty: 60 1RF Rx Instructions: Tab/Disintegrating Tab as best dispensed/covered baclofen 10 mg tablet See Rx Instructions .ROUTE .COMPLEX Qty: 30 2RF Dose Instruction: TAKE ONE TABLET BY MOUTH EVERY DAY FOR NECK MUSCLE SPASM Rx Instructions: TAKE ONE TABLET BY MOUTH EVERY DAY FOR NECK MUSCLE SPASM Discharge Instructions Additional Instructions: Surgery: Right hip endoscopy with iliotibial band release and trochanteric bursectomy 11/14/24 Activity: Weightbearing as tolerated. May use crutches or walker as needed for a few days. Gradually advance to full range of motion and activity over the next few weeks. Physical therapy prescription will be sent to start in a few weeks. Prescriptions: Resume home Eliquis this evening Tramadol 50 mg take 1 every 8 hours as needed for severe pain You may use [id number] Tylenol (acetaminophen) as needed for mild pain. These pain medications may be taken all at once or in different combinations as needed. Also, recommend Colace (docusate) as a stool softener as surgery and pain medicine cause constipation. You may try [id number] diphenhydramine (Benadryl) 25-50 mg nightly as a sleep aid Dressings: Leave dressing in place for 3 days. May then remove and leave open to air or cover incisions with Band-Aids. Leave the sticky Steri-Strips in place until they fall off or remove them after you shower. May shower after 5 days. Follow-up: 10-[address] Mabry You may take off the leg compression stockings this evening at home. You may also leave them on a few days longer if you have a history of leg swelling or edema. Let us know right away if you develop any redness, drainage, fevers, chest pain, or trouble breathing. Do not drink alcohol or drive for at least 24 hours after anesthesia. Please call the office during business hours with any questions or concerns. Discharge Orders Discharge Orders: Discharge Order (Routine); Ordered 11/14/24 Ordered By: Victoria Myles DS: Diagnosis Discharge Diagnosis (1) Trochanteric bursitis, right hip: Status: Acute (2) Iliotibial band syndrome of right side: Status: Acute
--- NOTE | 2024-11-14 07:29 | W.PM.OP ---
Operative Note Operative Note PRE-OP DIAGNOSIS: Right hip 1. Iliotibial band syndrome 2. Trochanteric bursitis POST-OP DIAGNOSIS: same PROCEDURE: Right hip endoscopic 1. Iiliotibial band release, CPT# 96595 2. Trochanteric bursectomy, CPT# 24407 SURGEON: Ellis Mabry AQUATIC HABITAT BIOLOGIST: Victoria Myles ANESTHESIA TYPE: Local By Surgeon and General LMA/ETT Refer to Anesthesia Record ESTIMATED BLOOD LOSS: 5 COMPLICATIONS: None Patient was transported to: PACU Patient's condition: stable Indications: Please see complete medical record for details. Findings: Thickened and relatively taut iliotibial band. Abundant trochanteric bursitis. Intact gluteal tendons. Procedure Description: In the operating room, general anesthesia was induced. The patient was positioned supine on the [facility] operating room table. All bony prominences were well-padded. Preoperative antibiotics were administered. The hip was prepped and draped in the usual sterile fashion. The correct patient, procedure, and side of the procedure were all verified prior to incision. 30 cc of 0.25% bupivacaine containing epinephrine was infiltrated about the subcutaneous tissues for the planned anterior lateral and distal anterolateral portals as well as deeply over the greater trochanter. A knife was used to incise the skin for the anterior lateral and distal anterolateral portals followed by blunt dissection subcutaneously. Under fluoroscopic guidance, a switching stick and arthroscope were inserted localizing the iliotibial band over the greater trochanter. Blunt dissection and the mechanical shaver were used to resect fat and overlying tissue about the center of the iliotibial band and carefully expose the anterior and posterior margins. Once there was adequate exposure of the IT band, the greater trochanter was again localized under fluoroscopic guidance with a spinal needle inserted through the skin down to bone. This central area was marked using the radiofrequency ablator. The radiofrequency ablator was then used to create a 2 cm longitudinal incision in line with the IT band fibers as well as extending it in a cruciate fashion with 2 cm incisions anteriorly and posteriorlyand used to achieve hemostasis. The mechanical shaver was then used to debride the IT band released edges exposing the trochanteric bursa. The mechanical shaver was then used to excise the trochanteric bursa taking care to protect musculature about the margins of the greater trochanter as well as neurovascular structures especially posteriorly. There was excellent visualization of the vastus lateralis as well as gluteus medius confirming appropriate bursa excision. The hip was brought through range of motion including internal and external rotation and there was no impinging iliotibial band tissue or remaining pathologic bursa. The viewing and working portals were switched and appropriate IT band release, trochanteric bursa excision, and hemostasis confirmed. Suction was used to remove fluid from the endoscopic space. The portals were closed using 3-0 Monocryl in a buried fashion. Steri-Strips were applied over the incisions followed by Xeroform, 4 x 4 gauze, an ABD pad, and secured with tape. The patient awoke from anesthesia without complication and was transferred to the recovery room in a stable condition. Date of Procedure: 11/14/24
[2024-11-14] MEDS: Lactated Ringers 1,000 ML 30 ML IV (11:45)
--- NOTE | 2024-11-14 11:45 | DI.RAD_ITS ---
Exam(s) XR HIP RT IN OR EXAM: XR HIP RT IN OR CLINICAL HISTORY: Iliotibial band syndrome of right side TECHNIQUE: 2D and realtime digital imaging was performed. CONTRAST MATERIAL: Refer to procedure report. COMPARISON: CR XR HIP RT COMPLETE AP PELVIS from 10/23/2024 FINDINGS: Fluoroscopy was provided for Dr. Mabry during the treatment of right iliotibial band syndrome. Please refer to the procedure report for complete details. Ka,r=1.28 mGy IMPRESSION: RADIATION DOSE DELIVERED: 0.0 0.0 0
--- NOTE | 2024-11-14 12:41 | W.ANESPRE ---
General Info Date of Service Date Performed: 11/14/24 Height: 5 ft 3.5 in Weight: 106.7 kg Body Mass Index (BMI): 41.0 Surgical Procedure: Operation Date: 11/14/24 12:05 Proposed Procedure Side Surgeon p Endoscopic Iliotibial Band Release w/Trochanteric Bursectomy, Possible Gluteal Tendon Repair Right Ellis Mabry MD Meds Allergies and Home Medications Allergies Allergy/AdvReac Type Severity Reaction Status Date / Time codeine Allergy Severe Anaphylaxsi Verified 11/12/24 10:54 s morphine Allergy Severe Anaphylaxsi Verified 11/12/24 10:54 s oxycodone Allergy Severe Anaphylaxsi Verified 11/12/24 10:54 s amoxicillin (From Augmentin) AdvReac Intermediate Hives Verified 11/12/24 10:54 Swelling budesonide AdvReac Intermediate thrush Verified 11/12/24 10:54 clavulanic acid (From AdvReac Intermediate Hives Verified 11/12/24 10:54 Augmentin) Swelling lisinopril AdvReac Intermediate cough Verified 11/12/24 10:54 pentazocine AdvReac Intermediate elevated Verified 11/12/24 10:54 LFT's diphenhydramine (From AdvReac Mild Benadryl Verified 11/12/24 10:54 Benadryl) and Tylenol PM poorly tolerated, wound up. fluconazole AdvReac Mild Nausea Verified 11/12/24 10:54 prednisone AdvReac Mild flu like Verified 11/12/24 10:54 illness varenicline AdvReac Mild I got Verified 11/12/24 10:54 ugly Home Medication ?Medication ?Instructions ?Recorded cholecalciferol (vitamin D3) 50 2,000 unit PO DAILY 07/01/15 mcg (2,000 unit) capsule (Vitamin D3) meclizine 25 mg tablet 12.5 - 25 mg (0.5 - 1 x 25 mg) PO 06/16/20 TID PRN dizziness #30 tabs ammonium lactate 12 % topical cream 1 applic topical BID #385 grams 07/15/21 acetaminophen 500 mg tablet 500 mg PO Q6H PRN PRN pain #40 tabs 03/30/22 triamcinolone acetonide 0.5 % 1 applic topical BID #15 grams 07/28/22 topical ointment halobetasol propionate 0.05 % 1 applic topical BID #50 grams 09/01/23 topical ointment nitroglycerin 0.4 mg sublingual 0.4 mg sublingual Q5M PRN chest 10/13/23 tablet pain #30 tabs ciclopirox 1 % shampoo 10 ml topical .q3 days #300 mL 01/31/24 clobetasol 0.05 % scalp solution See Rx Instructions topical BID 01/31/24 PRN active flaking itching scalp lesions #200 mL estradiol 0.01% (0.1 mg/gram) 1 appful vaginal DAILY 02/08/24 vaginal cream levothyroxine 75 mcg tablet 75 mcg PO DAILY #90 tabs 02/22/24 torsemide 20 mg tablet 40 mg (2 x 20 mg) PO DAILY #180 02/27/24 tabs sennosides 8.6 mg-docusate sodium 2 tab-cap PO BID 04/23/24 50 mg tablet (Senna with Docusate Sodium) apixaban 5 mg tablet (Eliquis) 5 mg PO BID #180 tabs 05/22/24 losartan 100 mg tablet 100 mg PO DAILY #90 tabs 05/22/24 ropinirole 2 mg tablet 2 mg PO QHS #90 tabs 05/22/24 sertraline 50 mg tablet 50 mg PO QHS #90 tabs 05/22/24 magnesium 250 mg tablet 250 mg PO DAILY #90 tabs 07/17/24 ondansetron HCl 4 mg tablet 4 mg PO Q8H PRN nausea and 09/05/24 vomiting #60 tabs montelukast 10 mg tablet 10 mg PO DAILY #120 tabs 09/27/24 tramadol 50 mg tablet 50 mg PO DAILY PRN pain #20 tabs 09/27/24 semaglutide 1 mg/dose (4 mg/3 mL) 1 mg subcut QWEEK 10/07/24 subcutaneous pen injector (Ozempic) enoxaparin 150 mg/mL subcutaneous 150 mg subcut DAILY #3 SYRGS 11/06/24 syringe (Lovenox) baclofen 10 mg tablet See Rx Instructions .Route 11/07/24 .COMPLEX #30 tabs Current Visit Medications: Current Medications Generic Name Dose Route Start Last Admin Trade Name Freq PRN Reason Stop Dose Admin Ringer's Solution 1,000 mls @ 30 mls/hr 11/14/24 06:00 11/14/24 11:45 IV 12/13/24 23:59 30 mls/hr INFUSION GISELLA Administration Cefazolin Sodium 3,000 mg/ 100 mls @ 200 mls/hr 11/14/24 06:00 Sodium Chloride IV 12/13/24 23:59 PREOP GISELLA IV Miscellaneous Supplies 1 each 11/14/24 06:00 Iv Access IV 12/13/24 23:59 DIRECTED GISELLA Sodium Chloride 0 ml 11/14/24 06:00 Normal Saline Flush 10 Ml Syr IV 12/13/24 23:59 PRN PRN Sodium Chloride 0 ml 11/14/24 06:00 Normal Saline 10 Ml Vial IJ 12/13/24 23:59 DIRECTED PRN Sterile Water 0 ml 11/14/24 06:00 Water,Injection,Sterile 10 Ml Vial IJ 12/13/24 23:59 DIRECTED PRN Tramadol HCl 50 mg 11/14/24 07:19 Tramadol 50 Mg Tab PO 12/14/24 07:18 Q6H PRN PRN PFSH Active Problems Active Problems: Problem Status Onset Code Iliotibial band syndrome of right side Acute M76.31 Trochanteric bursitis, right hip Acute M70.61 Right ankle pain Chronic M25.571 Essential hypertension Acute I10 Obstructive sleep apnea Chronic G47.33 Bilateral renal atrophy Acute N26.1 Bladder wall thickening Acute N32.89 Arthritis of right glenohumeral joint Acute M19.011 Lymphadenopathy Acute R59.1 Right rotator cuff tendinitis Acute M75.81 Lichen sclerosus et atrophicus Acute L90.0 Seborrheic dermatitis Acute L21.9 Seborrheic keratoses Acute L82.1 Lipoma of arm Acute D17.20 Lipoedema Acute R60.9 Pulmonary embolism Chronic I26.99 Fatty infiltration of liver Acute K76.0 Osteoarthritis of left knee Acute M17.12 Back pain of thoracolumbar region Acute M54.50, M54.6 Scalp lesion Acute L98.9 Antiphospholipid antibody positive Acute 11/21/22 R76.0 Dyslipidemia Acute E78.5 Unspecified essential hypertension Chronic I10 Class 3 severe obesity with serious comorbidity and body mass index (BMI) of 40.0 to 44.9 in adult Acute E66.01, Z68.41 Screening mammography declined Acute Z53.20 Balance problem Acute R26.89 Neck pain on right side Acute M54.2 RUQ abdominal pain Acute R10.11 CKD (chronic kidney disease) stage 3, GFR 30-59 ml/min Chronic N18.30 Anticoagulation therapy continued upon discharge Acute Z79.01 Displacement of lumbar intervertebral disc Acute M51.26 Lumbar stenosis Chronic M48.061 Bilateral edema of lower extremity Acute R60.0 Nodule of spleen Acute D73.89 Dyspnea on exertion Acute R06.00 Coronary artery disease involving [place] coronary artery of [place] heart without angina pectoris Acute I25.10 Lung nodule < 6cm on CT Acute R91.1 Shrinking lung syndrome Acute 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 has same respiratory sickness she has this spring. Apr 17, total shoulder. Coughs all night long x 12 days, better last noc, but was coughing this morning- head/chest.General/Bariatric Surgery on HOLD 2' CHF, Hip Pain. Widened retrocardiac hiatal hernia, 7cm x 5cm AP. Larger than 2012..Hx GERD, with possible new symptoms (12/2020). Surgery? Leg pain, diffuse lipidema? Trochanteric bursitis, right hip DEPO-MEDROL 08/14/23; 03/18/24 Entrapment of right superficial peroneal nerve improved/post surgery ? 10/2023, ik Right flank pain ~ T9-T10 levels, side/wrapping to mid-back (TTP @ T9-10-11-12, ok @ lumbar) Trochanteric bursitis, left hip DEPO MEDROL 08/11/22 Acute kidney injury superimposed on chronic kidney disease Acute postoperative anemia due to expected blood loss JOSTIN (acute kidney injury) Cr 1.7 vs 1.5, 09/03/21 .. complicating diuresis. Chronic renal insufficiency, stage II (mild) Mild-Mod CKD G3a (GFR 48, 08/2020). 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 s/p hip replacement, 02/2022. Inguinal Ligament Pain & Stiffness .. becomes hard, like a bone. Hx PMR Eval, 08/2021 Pelvic somatic dysfunction Partial resolution s/p b.l hip repl, 02/2022 Per PMR/Spine ... severe pain of SI Joint, Lower Back, Buttocks. Edema of thigh resolved with [facility] admission/care CHF (congestive heart failure) mild-mod per new cardio eval (not as severe as originally thought)(not responsible for degree of edema observed, 09/2021) Chronic pain of both lower extremities Sacroiliac dysfunction TBD post b/l hip replacements, . 08/23/21 [facility] [place] [place] Pain and spine note Fatigue severe, sudden onset, napped x hours this week (2' fluconazole?) Hip effusion, right Aspirated, Ortho, 06/2021 Edema due to congestive heart failure Doubting CHF as full reason for edema (New Cardio, 09/2021).Acute on chronic, presumed CHF.. following diuresis per Dr. Perez direction, 06/2021. Abnormal chest CT [facility] 06/03/21: Recommendations to be discussed w/ pt; 1. F/u imaging of enlarged subcarinal node 3-6mo. 2. Correlating mammography or breast u/s for breast nodules (non-emergent). 3. Dedicated imaging for indeterminate splenic lesion. 4. Repeat Chest CT Q12mo to f/u on nodules bi-lat. Severe obstructive sleep apnea 06/13/21 Sleep study note Occlusive disease of artery of lower extremity MILD, per 03/2021 Vascular Eval ([facility] [place] [place])(No intervention planned).. TAYLER ([facility]) shows borderline/normal results. Chronic pain Strain of muscle of right groin region Severe right groin pain x 2 weeks, with Hx low grade discomfort x months. Hx UrSling. Rt thigh pain described. Restless leg syndrome Posterior tibial tendon dysfunction, left Lipoma of left upper extremity Diastolic dysfunction NEW CARD DISAGREES, 09/2021. Per Silvia Varma), 09/2018 ... June 29, 2010: LVEDP 23 mm mercury. January 31, 2000. LVEDP 7 mm mercury, rising to 21 mm mercury after 1 L normal saline over 10 minutes. Wedge pressure 19 mm mercury .. mild pulmonary hypertension on right heart catheterization (40-45 MmHG). Hx recurrent pericarditis/ pericardial effusion, Sjogren's syndrome. Abnormal finding on imaging CT (Lung Ca Screen), 12/2020: Increased markings, 4mm RLL nodule, Dec volume, widened hiatal hernia. 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 ePrez on 01/06/20 Neoplasm of uncertain behavior of skin (05/15/14) Left forehead, status post excision with primary closure. Seborrheic keratosis by final pathology. 05/22 Increased BMI (body mass index) (05/11/17) Morbid obesity per [facility] [place] [place] Gen Surge 04/21/21 note Hyperlipidemia (07/23/12) Hx declining statin? BPPV (benign paroxysmal positional vertigo) Tobacco dependence Surgical History Surgical History Status post reverse total arthroplasty of right shoulder (~04/17/24) 05/27/24 f/u at Ortho 08/06/24 F/u Ortho - pt having pain issues S/P biopsy (~08/22/23) L and R labia minora [facility] S/P repair of paraesophageal hernia At [facility] [place] [place] 02/20/2023-Dr.Sarah Waller History of embolectomy access thru rt groin, for PE February 2022, [facility] Status post bilateral total hip replacement (01/14/22) History of carpal tunnel surgery of left wrist History of suburethral sling procedure 12/18/18 Vaginectomy/colpocleisis with Posterior colporrhapy and transobturator mid urethral sling at [facility] [place] [place] History of colpocleisis History of arthroplasty of finger of left hand Hx of appendectomy Hx of thumb surgery History of ankle surgery hardware present History of bunionectomy of both great toes Status post abdominal hysterectomy Status post tonsillectomy 2017? Prolapse of female pelvic organs Stage III post hysterectomy vaginal prolapse with stress incontinence. Rx at [facility] [place] [place] 12/18/18. Tonsillectomy Abdominal hysterectomy ENDOMETRIOSIS; ONE OVARY REMAINS Colonoscopy - IV Sedation (04/25/16) Tobacco Smoking/Tobacco Use Status: Former Tobacco Use Passive smoking exposure: No Alcohol Alcohol Intake: current Alcohol intake frequency: holidays/special occasions only Alcohol type: beer and wine Substance Use Substance use: Never Substance use type: does not use Counseling provided: other Prental History History 3 Para Hx # Term Pregnancies 3 Multiple births Hx # Pregnancies Ectopic pregnancies AB induced Hx Number of Living Children AB spontaneous Vital Signs and Lab Results Vital Signs Most Recent Vital Signs in EMR: Most Recent Vital Signs Temp Pulse Resp BP Pulse Ox 36.1 C L 65 16 145/72 H 100 11/14/24 11:10 11/14/24 11:10 11/14/24 11:10 11/14/24 11:10 11/14/24 11:10 Imaging and Studies Imaging and Studies Study information below may be from another EMR and interpreted by another provider. Please see original notes in EMR for more complete details. EKG Summary: Conclusion Sinus rhythm...normal P axis, V-rate 50- 99 Normal Electrocardiogram 12/24/21 Stress Test Summary: Stress results: STRESS TEST ENDED IN 4 MINUTES 52 SECONDS DUE TO FATIGUE. NORMAL HEART RATE AND BLOOD PRESSURE RESPONSE TO EXERCISE. MAX HEART RATE: 135. 91 % OF TARGET HEART RATE ACHIEVED. MET'S: 6.87. RARE PAC'S IN RECOVERY. HORIZONTAL ST SEGMENT DEPRESSIONS IN LEADS V4, V5 AND V6 AT 4 MINUTES 49 SECONDS OF EXERCISE, BECOMING DOWNWARD SLOPING AT 2 MIN[address] SEGMENT DEPRESSIONS RETURN TO BASELINE AT 10 MINUTES 1 SECOND OF RECOVERY. CHEST PRESSURE 6/10 AT PEAK EXERCISE. CHEST PRESSURE 3/10 AT 1 MINUTE OF RECOVERY. CHEST PRESSURE SUBSIDED BY 6 MINUTES OF RECOVERY. FUNCTIONAL CAPACITY: AVERAGE CAPACITY. Maximal heart rate during stress was 135bpm (91% of maximal predicted heart rate). The maximal predicted heart rate was 148bpm. The target heart rate was achieved. The heart rate response to stress is normal. There is resting hypertension with an appropriate response to stress. The rate-pressure product for the peak heart rate and blood pressure was 48853ec Hg/min. Stress-induced chest pain which resolved spontaneously. Exercise capacity is average for age. Stress ECG: The stress ECG is positive. The stress ECG is indeterminate due to baseline ST/T wave abnormality. Stress ECG change: horizontal depression. Severity: 2.0-3.0mm. In lead groups: II, III, aVF and V3 - V6. Myocardial perfusion: Imaging information: gated. Image quality reduced due to breast attenuation. Left ventricular size is normal. There is a moderate sized, moderately intense, fully reversible defect involving the anterior wall(s). Since this defect resolves completely with attenuation correction and the wall motion is normal this is consistent with breast artifact rather than ischemia. Ventricular Function (Wall Motion): The calculated left ventricular ejection fraction after stress: 61%. LV global systolic function is normal. No left ventricular regional motion abnormality. 07/04/18 Echocardiogram Summary: Conclusion Normal left ventricular wall thickness and chamber size. Estimated ejection fraction is 60%. Wall motion is normal Normal right ventricular size and systolic function The left atrium is mildly dilated. The right atrium is normal in size Normal aortic valve without stenosis or regurgitation Normal mitral valve with mild regurgitation Normal tricuspid valve, trace regurgitation. Right ventricular systolic pressure could not be estimated 09/10/21 Pulmonary Function Summary: Impression Possible mild restrictive lung disease with decreased muscle pressures and a reduced diffusion. Note: When compared to 02/23/2012 the total lung capacity is reduced and the diffusion is reduced. Clinical Correlation therefore is recommended. 02/19/21 Anesthesia Assessment and Plan Anesthesia History Personal History: No History of Anesthesia Complications Family History: No Family History of Anesthesia Complications Exercise Tolerance Exercise Tolerance: Metabolic Equivalents<4 Pertinent Negatives Pertinent Negatives: No Symptoms of GERD, No Major Cardiovascular Symptoms or Complaints, No Major Pulmonary Symptoms or Complaints and No History of CVA/TIA Cardiac & Pulmonary Exam Cardiac Exam: Normal S1/S2 Heart Sounds Pulmonary Exam: Clear Bilateral Breath Sounds Implantable Cardiac Device Does patient have a Pacemaker or an ICD?: No Airway Exam Known Difficult Airway: No Mallampati Class: 2 Mouth Opening: Normal (> 3cm) Thyromental Distance: Greater than 3 cm Neck Range of Motion: Limited ROM Neck Circumference: Thick Teeth Condition: Removable Dentures/Plates Upper and Edentulous ASA Classification ASA Score: ASA 3 Emergency Case?: No NPO Status NPO Status: NPO Clears >2 hours, Solids >8 hours Anesthesia Plan Resuscitation Status: Full Code Anesthesia Technique: General Anesthesia Airway Planned: Endotracheal Tube Monitors Used: Standard Monitors Preoperative Comments:: discussed increased risk of adverse events r/t Sjogrens; pt verbalised understanding
[2024-11-14] MEDS: ceFAZolin 3,000 MG in Normal Saline 100 ML 200 MG IV (13:39)
[2024-11-14] MEDS: Bupivacaine 0.25% Pres-Free W/EPI 30 ML VIAL (14:20)
[2024-11-14] MEDS: EPINEPHrine 10 MG/10 ML ML (14:30)
[2024-11-14] MEDS: fentaNYL 100 MCG/2 ML VIAL IVP ×4 (15:10→15:31)
--- NOTE | 2024-11-14 15:23 | W.ANESPOSTOP ---
Postoperative Evaluation Date, Time and Location Date Performed: 11/14/24 Time Performed: 15:24 Patient Location: PACU Vital Signs Most Recent Imported Vital Signs: Most Recent Vital Signs Temp Pulse Resp BP Pulse Ox 36.8 C 59 L 16 110/60 100 11/14/24 15:17 11/14/24 15:21 11/14/24 15:21 11/14/24 15:21 11/14/24 15:21 Pain Score Most Recent Pain Score: Most Recent Pain Score Pain Level 0 11/14/24 11:10 Assessment Mental Status: Awake (Alert & Oriented to Patient Baseline) Airway and Respiratory Function: Patent airway with normal (patient baseline) respiratory exam Cardiovascular Function: Hemodynamically Stable Hydration Status: Adequately Hydrated Nausea & Vomiting: No Nausea or Vomiting Pain: Pain is tolerable per patient (receiving PRN pain meds; see mar ) Peripheral Nerve Block: Patient did not receive a nerve block
== END 2024-11-14 16:38 | disposition home or self-care (01) ==
LOC: SUR 10:20
PROVIDERS: PCP Nurse Practitioner; Visit Provider Student in an Organized Health Care Education/Training Program
PROC: (CPT 29863; principal; 2024-11-14 11:45)
DX: M70.61 Trochanteric bursitis, right hip (principal); M76.31 Iliotibial band syndrome, right leg; M35.00 Sjogren syndrome, unspecified
CPT/HCPCS: 27062; 27305; 73501; J0131; J0690; J1100; J2003; J2371; J2405; J2704; J3010

== ENCOUNTER 2024-11-21 11:10 | Outpatient (CLI) | payer MEDICARE, SELFPAY ==
--- NOTE | 2024-11-21 11:10 | RT.EKG_ITS ---
APPROVED REPORT Exam: Resting ECG Reason for Exam: chest heaviness Patient Location: O HR:72 bpm ECG Measurements Heart Rate 72 AXIS NC 161 P 53 QRSd 122 QRS 24 QT 398 T 32 QTc 436 Conclusion Sinus rhythm...normal P axis, V-rate 50- 99 Normal Electrocardiogram
== END 2024-11-21 11:11 | disposition home or self-care (01) ==
LOC: DI.KIM 11:11
PROVIDERS: PCP Nurse Practitioner; Visit Provider Family Medicine
DX: R07.89 Other chest pain (principal)
CPT/HCPCS: 93010

== ENCOUNTER 2024-11-21 11:44 | Emergency (ER) | payer MEDICARE, SELFPAY ==
[2024-11-21] VITALS (14 sets, daily range): BP systolic 124–156; BP diastolic 56–87; PULSE 69–78; RESP 10–22; TEMP 36.9–37; O2SAT 94–96
--- NOTE | 2024-11-21 11:45 | RT.EKG_ITS ---
APPROVED REPORT Exam: Resting ECG Reason for Exam: chest pain Patient Location: E HR:75 bpm ECG Measurements Heart Rate 75 AXIS CO 131 P 35 QRSd 108 QRS 39 QT 391 T 51 QTc 438 Conclusion Sinus rhythm...normal P axis, V-rate 60- 99
--- NOTE | 2024-11-21 12:24 | ED.GENADUL_ITS ---
Discharge Plan Disposition Patient Disposition: Home Condition: Stable Discharge Details Clinical Impression: Fatigue, Chest pain Primary Care Provider: Elba Swartz ED Provider: Javid Cho Home Meds and New Rx's Prescriptions: Continued nitroglycerin 0.4 mg tablet, sublingual 0.4 mg sublingual Q5M PRN (Reason: chest pain) Qty: 30 1RF Rx Instructions: do not exceed 3 doses per episode losartan 100 mg tablet 100 mg PO DAILY Qty: 90 3RF Eliquis 5 mg tablet 5 mg PO BID Qty: 180 3RF Rx Instructions: Re-starting Eliquis vs warfarin per direction d/w PCP ropinirole 2 mg tablet 2 mg PO QHS Qty: 90 3RF Rx Instructions: administer 1-3 hours before bedtime sertraline 50 mg tablet 50 mg PO QHS Qty: 90 3RF Rx Instructions: Continue with 1 tab (50mg) daily. magnesium 250 mg tablet 250 mg PO DAILY Qty: 90 3RF Ozempic 1 mg/dose (4 mg/3 mL) pen injector 1 mg subcut QWEEK tramadol 50 mg tablet 50 mg PO DAILY PRN (Reason: pain) Qty: 20 2RF montelukast 10 mg tablet 10 mg PO DAILY Qty: 120 0RF cholecalciferol (vitamin D3) [Vitamin D3] 2,000 UNIT capsule 2,000 unit PO DAILY Patient Comments: 01/18/17-now takes 5000U/pps meclizine 25 mg tablet 12.5 - 25 mg PO TID PRN (Reason: dizziness) Qty: 30 4RF acetaminophen 500 mg tablet 500 mg PO Q6H PRN PRN (Reason: pain) Qty: 40 3RF Rx Instructions: [facility] 1000 mg bid 01/26/22 halobetasol propionate 0.05 % ointment 1 applic topical BID Qty: 50 4RF Rx Instructions: apply tiny amount to vulvar bid for 2weeks then daily for 2weeks then twice weekly clobetasol 0.05 % solution See Rx Instructions topical BID PRN (Reason: active flaking itching scalp lesions) Qty: 200 1RF Rx Instructions: Approx 4 FTUs topically twice a day PRN all over scalp ciclopirox 1 % shampoo 10 ml topical .q3 days Qty: 300 1RF Rx Instructions: Continue for scalp lesions, x 4 weeks w/ 1 week off (restart prn) estradiol 0.01 % (0.1 mg/gram) cream 1 appful vaginal DAILY Patient Comments: 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/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 Rx Instructions: apply pea sized amount, alternating with ultravate oint to vulvar area levothyroxine 75 mcg tablet 75 mcg PO DAILY Qty: 90 3RF sennosides-docusate sodium [Senna with Docusate Sodium] 8.6-50 mg tablet 2 tab-cap PO BID ondansetron HCl 4 mg tablet 4 mg PO Q8H PRN (Reason: nausea and vomiting) Qty: 60 1RF Rx Instructions: Tab/Disintegrating Tab as best dispensed/covered baclofen 10 mg tablet See Rx Instructions .ROUTE .COMPLEX Qty: 30 2RF Dose Instruction: TAKE ONE TABLET BY MOUTH EVERY DAY FOR NECK MUSCLE SPASM Rx Instructions: TAKE ONE TABLET BY MOUTH EVERY DAY FOR NECK MUSCLE SPASM tramadol 50 mg tablet 50 mg PO Q8H PRN (Reason: severe pain) Qty: 12 0RF magnesium oxide 250 mg magnesium tablet 250 mg PO ONCE Patient Comments: TAKE ONE TABLET BY MOUTH EVERY DAY torsemide 20 mg tablet 40 mg PO DAILY MDD 60mg PRN Patient Comments: pt only taking when she notices swelling because of her dislike of urinary frequency with this No Action ammonium lactate 12 % cream 1 applic topical BID Qty: 385 1RF Rx Instructions: Trial for dry skin, edema triamcinolone acetonide 0.5 % ointment 1 applic TP BID Qty: 15 4RF Rx Instructions: apply tiny amount to vulva twice daily for 2weeks then daily for two weeks then twice weekly. Discharge Instructions Additional Instructions: Your blood work and x-ray did not show concerning findings at this time. Follow-up with your primary care provider especially if your symptoms are continuing. If you feel more ill or have new symptoms such as severe worsening pain or persistent vomiting return to the emergency department for reevaluation. HPI General Mode of arrival: wheelchair . Date/Time Provider Initiated Documentation: 11/21/24 11:47 . Limitations to Documentation: no limitations . Information obtained by: patient . History of Present Illness 78 year old F presents to the emergency department with the chief complaint of fatigue, hoarse throat, chest pain, described as moderate, Quality is described as aching, Patient started experiencing this day(s) (7) and it has been constant. No relieving factors improve symptom(s), No exacerbating factors reported . Patient notes no other symptoms.. Patient did receive the following treatments prior to arrival, none Related Data Home Medications ?Medication ?Instructions ?Recorded ?Confirmed cholecalciferol (vitamin D3) 50 2,000 unit PO DAILY 11/21/24 mcg (2,000 unit) capsule (Vitamin D3) meclizine 25 mg tablet 12.5 - 25 mg (0.5 - 1 x 25 m g) PO 06/16/20 11/21/24 TID PRN dizziness #30 tabs ammonium lactate 12 % topical cream 1 applic topical B ID #[id number] grams 07/15/21 Held on 11/21/24. Instructions: Pt Stopped/Never Started acetaminophen 500 mg tablet 500 mg PO Q6H PRN PRN pain #40 tabs 03/30/22 11/21/24 triamcinolone acetonide 0.5 % 1 applic topical BID #15 grams 07/28/22 11/21/24 topical ointment Held on 11/21/24. Instructions: Pt Stopped/Never Started halobetasol propionate 0.05 % 1 applic topical BID #50 grams 09/01/23 11/21/24 topical ointment nitroglycerin 0.4 mg sublingual 0.4 mg sublingual Q5M PRN chest 10/13/23 11/21/24 tablet pain #30 tabs ciclopirox 1 % shampoo 10 ml topical .q3 days #300 mL 01/31/24 11/21/24 clobetasol 0.05 % scalp solution See Rx Instructions t opical BID 01/31/24 11/21/24 PRN active flaking itching scalp lesions #200 mL estradiol 0.01% (0.1 mg/gram) 1 appful vaginal DAILY 1 11/21/24 vaginal cream levothyroxine 75 mcg tablet 75 mcg PO DAILY #90 tabs 1 04/23/23 11/21/24 sennosides 8.6 mg-docusate sodium 2 tab-cap PO BID 11/21/24 50 mg tablet (Senna with Docusate Sodium) apixaban 5 mg tablet (Eliquis) 5 mg PO BID #180 tabs 0 05/22/24 11/21/24 losartan 100 mg tablet 100 mg PO DAILY #90 tabs 04/0311/21/24 ropinirole 2 mg tablet 2 mg PO QHS #90 tabs 5 11/21/24 sertraline 50 mg tablet 50 mg PO QHS #90 tabs 11/21/24 magnesium 250 mg tablet 250 mg PO DAILY #90 tabs 01/0211/21/24 ondansetron HCl 4 mg tablet 4 mg PO Q8H PRN nausea and 09/05/24 11/21/24 vomiting #60 tabs montelukast 10 mg tablet 10 mg PO DAILY #120 tabs 11/21/24 tramadol 50 mg tablet 50 mg PO DAILY PRN pain #20 tabs 09/27/24 11/21/24 semaglutide 1 mg/dose (4 mg/3 mL) 1 mg subcut QWEEK 11/21/24 subcutaneous pen injector (Ozempic) baclofen 10 mg tablet See Rx Instructions .Route 0 11/07/24 11/21/24 .COMPLEX #30 tabs tramadol 50 mg tablet 50 mg PO Q8H PRN severe pain #12 11/14/24 11/21/24 tabs magnesium oxide 250 mg PO ONCE 11/21/2411/08 torsemide 20 mg tablet 40 mg PO DAILY PRN 11/21/24 11/21/24 Previous Rx's ?Medication ?Instructions ?Recorded meclizine 25 mg tablet 12.5 - 25 mg (0.5 - 1 x 25 m g) PO 06/16/20 TID PRN dizziness #30 tabs ammonium lactate 12 % topical cream 1 applic topical B ID #385 grams 07/15/21 Held on 11/21/24. Instructions: Pt Stopped/Never Started acetaminophen 500 mg tablet 500 mg PO Q6H PRN PRN pain #40 tabs 03/30/22 triamcinolone acetonide 0.5 % 1 applic topical BID #15 grams 07/28/22 topical ointment Held on 11/21/24. Instructions: Pt Stopped/Never Started halobetasol propionate 0.05 % 1 applic topical BID #50 grams 09/01/23 topical ointment nitroglycerin 0.4 mg sublingual 0.4 mg sublingual Q5M PRN chest 10/13/23 tablet pain #30 tabs ciclopirox 1 % shampoo 10 ml topical .q3 days #300 mL 01/31/24 clobetasol 0.05 % scalp solution See Rx Instructions t opical BID 01/31/24 PRN active flaking itching scalp lesions #200 mL levothyroxine 75 mcg tablet 75 mcg PO DAILY #90 tabs 1 04/23/23 apixaban 5 mg tablet (Eliquis) 5 mg PO BID #180 tabs 0 05/22/24 losartan 100 mg tablet 100 mg PO DAILY #90 tabs 04/03 ropinirole 2 mg tablet 2 mg PO QHS #90 tabs 5 sertraline 50 mg tablet 50 mg PO QHS #90 tabs magnesium 250 mg tablet 250 mg PO DAILY #90 tabs 01/02 ondansetron HCl 4 mg tablet 4 mg PO Q8H PRN nausea and 09/05/24 vomiting #60 tabs montelukast 10 mg tablet 10 mg PO DAILY #120 tabs tramadol 50 mg tablet 50 mg PO DAILY PRN pain #20 tabs 09/27/24 baclofen 10 mg tablet See Rx Instructions .Route 0 11/07/24 .COMPLEX #30 tabs tramadol 50 mg tablet 50 mg PO Q8H PRN severe pain #12 11/14/24 tabs Allergies Allergy/AdvReac Type Severity Reaction Status Date / Time codeine Allergy Severe Anaphylaxsi Verified 11/21/24 13:53 s morphine Allergy Severe Anaphylaxsi Verified 11/21/24 13:53 s oxycodone Allergy Severe Anaphylaxsi Verified 11/21/24 13:53 s amoxicillin (From Augmentin) AdvReac Intermediate Hives Verified 11/21/24 13:53 Swelling budesonide AdvReac Intermediate thrush Verified 11/21/24 13:53 clavulanic acid (From AdvReac Intermediate Hives Verified 11/21/24 13:53 Augmentin) Swelling lisinopril AdvReac Intermediate cough Verified 11/21/24 13:53 pentazocine AdvReac Intermediate elevated Verified 11/21/24 13:53 LFT's diphenhydramine (From AdvReac Mild Benadryl Verified 11/21/24 13:53 Benadryl) and Tylenol PM poorly tolerated, wound up. fluconazole AdvReac Mild Nausea Verified 11/21/24 13:53 prednisone AdvReac Mild flu like Verified 11/21/24 13:53 illness varenicline AdvReac Mild I got Verified 11/21/24 13:53 ugly General Stated Complaint: Chest Pain TERESA: 3 Review of Systems All systems reviewed & are unremarkable except as noted in HPI and below Constitutional Constitutional: Denies chills, Denies fever(s) and Reports weakness Cardiovascular Cardiovascular: Reports chest pain and Denies dyspnea Respiratory Respiratory: Reports cough and Denies dyspnea Gastrointestinal Gastrointestinal: Denies abdominal pain, Denies nausea and Denies vomiting Neurologic Neurologic: Reports weakness Exam Const General: no acute distress Orientation: alert HENMT Head: normal to inspection Ears: external ears normal General nose exam: external nose normal Mouth: moist mucous membranes Eyes General: appearance normal, both eyes and all related structures Neck Neck: normal visual inspection Resp Effort & Inspection: normal respiratory effort and able to speak in complete sentences Auscultation: clear to auscultation bilaterally Cardio Jugular venous pressure: no JVD Rate: regular rate Skin General skin exam: no rashes or lesions noted Neuro General: patient alert and patient oriented x3 Extrem General: normal to inspection Psych Mental Status: mental status grossly normal Course Vital Signs Vital signs: Vital Signs Temperature 37.0 C 11/21/24 11:56 Pulse 76 11/21/24 11:56 Respiratory Rate 18 11/21/24 11:56 Blood Pressure 143/87 H 11/21/24 11:56 Pulse Oximetry 95 11/21/24 11:56 Temperature 37.0 C 11/21/24 11:56 Temperature Source Oral 11/21/24 11:56 Pulse 76 11/21/24 11:56 Respiratory Rate 18 11/21/24 11:56 Blood Pressure 143/87 H 11/21/24 11:56 Pulse Oximetry 95 11/21/24 11:56 Oxygen Delivery Method Room Air 11/21/24 11:56 Oxygen Flow Rate 0 11/21/24 11:56 Pain Level 3 11/21/24 11:56 Medical Decision Making 78-year-old female with a history of prior PE on Eliquis, CKD, who comes in with chief complaint of fatigue for a week and intermittent chest discomfort. She says she also has a cough and raspy voice. She denies any high fevers. She is speaking in full sentences in no stress. She denies having any pain now and denies any pain with exertion, she says that show right away have the chest pain and will take a nitro when she gets it in the past but has not since last week. She has clear lung sounds, no abdominal tenderness. Unclear etiology for her fatigue, cough and chest pain, will check a CBC, CMP, troponins and a chest x- ray. Given she is already on anticoagulation I doubt PE. Labs and x-ray showed no concerning findings or changes from baseline, two negative troponins. She is requesting discharge home as she says she feels well and I feel this is reasonable given her reassuring workup. She will follow-up with PCP and return precautions given Differential Diagnosis Differential Diagnosis: pna, electorlyte abnormality, nstemi Lab Data Lab results reviewed: Yes I reviewed the patient's lab results. ECG Data Attestation: I personally reviewed and interpreted this ECG (s) as follows: Prior ECG tracings: available for review Interpretation: sinus rate of 75 no stemi PFSH All Active Problems (Updated 11/21/24 @ 14:21 by Javid Cho MD) Chest pain (Acute) Fatigue (Acute) Iliotibial band syndrome of right side (Acute) Trochanteric bursitis, right hip (Acute) s/p Right hip endoscopy with iliotibial band release and trochanteric bursectomy 11/14/24 Right ankle pain (Chronic) previous ankle surgery by Dr. Tran many years ago [address] along distal fibula Essential hypertension (Acute) Obstructive sleep apnea (Chronic) Bilateral renal atrophy (Acute) per 12/2023 US Bladder wall thickening (Acute) per 12/2023 renal US Arthritis of right glenohumeral joint (Acute) POCUS 11/23/23 Lymphadenopathy (Acute) Right rotator cuff tendinitis (Acute) DEPO MEDROL 10/09/23 Lichen sclerosus et atrophicus (Acute) Halbetasol per [facility], 01/2021. (2019. Patient advised to begin topical steroid to vulva) Seborrheic dermatitis (Acute) Seborrheic keratoses (Acute) Lipoma of arm (Acute) Lipoedema (Acute) Pulmonary embolism (Chronic) July 2022 [facility] [place] Keep on LT anticoagulant per Hem/Onc.HE Heme work-up in process, probable long-term anticoagulation despite etiology of extended recovery post hip replacement. February 2022. Status post embolectomy at [facility]. Fatty infiltration of liver (Acute) per US, Nov US Osteoarthritis of left knee (Acute) DURLOLANE 08/14/23 DEPO MEDROL 07/11/24; 10/14/24 Back pain of thoracolumbar region (Acute) Scalp lesion (Acute) Antiphospholipid antibody positive (Acute 11/21/22) Dyslipidemia (Acute) Unspecified essential hypertension (Chronic) Class 3 severe obesity with serious comorbidity and body mass index (BMI) of 40.0 to 44.9 in adult (Acute) Screening mammography declined (Acute) 12/2020 EO .. Pt agreed today 2' daughter in law! 04/29/22, ik Balance problem (Acute) 2' neck stiffness? Neck pain on right side (Acute) due to ambulance ride post PE (?) RUQ abdominal pain (Acute) re-starting, 11/2022 CKD (chronic kidney disease) stage 3, GFR 30-59 ml/min (Chronic) Mild-Mod CKD G3a (GFR 48, 08/2020)... .Cr 1.4, 2022.. Cr @ 1.2-1.3 with GFR 42-46 (Fall 2021), so CKD Stg 3. Pt is hydrating and recovering from difficult medical/surgical year (2021) with expectations of improved renal function, but guarded. IK Anticoagulation therapy continued upon discharge (Acute) Eliquis 07/11/23 2' Ins Cvrg avble..Warfarin started February 2023 due to cost ..due to PE, s/p IR Thrombectomy @ [facility], 02/25/22.. [facility] Heme recomm cont'd Eliquis, with FU incl Echo @ [facility] [place] (Echo TBD June 2022 for CTEPH) .. Hx being OUT of the [id number] window DOUBTED Displacement of lumbar intervertebral disc (Acute) 08/23/21 [facility] [place] Pain and spine note Lumbar stenosis (Chronic) with lumbosacral radiculopathy per Pain Clinic Bilateral edema of lower extremity (Acute) Nodule of spleen (Acute) Dyspnea on exertion (Acute) Coronary artery disease involving [place] coronary artery of [place] heart without angina pectoris (Acute) Lung nodule < 6cm on CT (Acute) 4mm, per 12/2020 CT (new since 2012).. 6 mo FU [ ] Shrinking lung syndrome (Acute) Restrictive lung disease (Acute) PFT, 01/2021 (Spirometry: Muscle pressures are decreased.. diffusion [capacity] reduced.. Airway resistance normal...Possible mild restrictive lung disease with decreased muscle pressures and a reduced diffusion. (compared to 02/23/2012, total lung capacity & diffusion is reduced .. Clinical Correlation (?) ik Sjogren's disease (Chronic) GERD (gastroesophageal reflux disease) (Chronic) Prediabetes (Acute) A1C 5.8 Hypothyroidism (Chronic) Medical History Hiatal hernia Pt here today for: 3 mo chronic condition and controlled RX refill-Tramadol... has same respiratory sickness she has this spring. Apr 17, total shoulder. Coughs all night long x 12 days, better last noc, but was coughing this morning- head/chest.General/Bariatric Surgery on HOLD 2' CHF, Hip Pain. Widened retrocardiac hiatal hernia, 7cm x 5cm AP. Larger than 2012..Hx GERD, with possible new symptoms (12/2020). Surgery? Leg pain, diffuse lipidema? Trochanteric bursitis, right hip DEPO-MEDROL 08/14/23; 03/18/24 Entrapment of right superficial peroneal nerve improved/post surgery ? 10/2023, ik Right flank pain ~ T9-T10 levels, side/wrapping to mid-back (TTP @ T9-10-11-12, ok @ lumbar) Trochanteric bursitis, left hip DEPO MEDROL 08/11/22 Acute kidney injury superimposed on chronic kidney disease Acute postoperative anemia due to expected blood loss JOSTIN (acute kidney injury) Cr 1.7 vs 1.5, 09/03/21 .. complicating diuresis. Chronic renal insufficiency, stage II (mild) Mild-Mod CKD G3a (GFR 48, 08/2020). 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 s/p hip replacement, 02/2022. Inguinal Ligament Pain & Stiffness .. becomes hard, like a bone. Hx PMR Eval, 08/2021 Pelvic somatic dysfunction Partial resolution s/p b.l hip repl, 02/2022 Per PMR/Spine ... severe pain of SI Joint, Lower Back, Buttocks. Edema of thigh resolved with [facility] admission/care CHF (congestive heart failure) mild-mod per new cardio eval (not as severe as originally thought)(not responsible for degree of edema observed, 09/2021) Chronic pain of both lower extremities Sacroiliac dysfunction TBD post b/l hip replacements, . 08/23/21 [facility] [place] Pain and spine note Fatigue severe, sudden onset, napped x hours this week (2' fluconazole?) Hip effusion, right Aspirated, Ortho, 06/2021 Edema due to congestive heart failure Doubting CHF as full reason for edema (New Cardio, 09/2021).Acute on chronic, presumed CHF.. following diuresis per Dr. Perez direction, 06/2021. Abnormal chest CT [facility] 06/03/21: Recommendations to be discussed w/ pt; 1. F/u imaging of enlarged subcarinal node 3-6mo. 2. Correlating mammography or breast u/s for breast nodules (non-emergent). 3. Dedicated imaging for indeterminate splenic lesion. 4. Repeat Chest CT Q12mo to f/u on nodules bi-lat. Severe obstructive sleep apnea 06/13/21 Sleep study note Occlusive disease of artery of lower extremity MILD, per 03/2021 Vascular Eval ([facility]No intervention planned).. TAYLER ([facility]) shows borderline/normal results. Chronic pain Strain of muscle of right groin region Severe right groin pain x 2 weeks, with Hx low grade discomfort x months. Hx UrSling. Rt thigh pain described. Restless leg syndrome Posterior tibial tendon dysfunction, left Lipoma of left upper extremity Diastolic dysfunction NEW CARD DISAGREES, 09/2021. Per Cardio Avani), 09/2018 ... June 29, 2010: LVEDP 23 mm mercury. January 31, 2000. LVEDP 7 mm mercury, rising to 21 mm mercury after 1 L normal saline over 10 minutes. Wedge pressure 19 mm mercury .. mild pulmonary hypertension on right heart catheterization (40-45 MmHG). Hx recurrent pericarditis/ pericardial effusion, Sjogren's syndrome. Abnormal finding on imaging CT (Lung Ca Screen), 12/2020: Increased markings, 4mm RLL nodule, Dec volume, widened hiatal hernia. 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 Perez on 01/06/20 Neoplasm of uncertain behavior of skin (05/15/14) Left forehead, status post excision with primary closure. Seborrheic keratosis by final pathology. 05/22 Increased BMI (body mass index) (05/11/17) Morbid obesity per [facility] Gen Surge 04/21/21 note Hyperlipidemia (07/23/12) Hx declining statin? BPPV (benign paroxysmal positional vertigo) Tobacco dependence Surgical History Status post reverse total arthroplasty of right shoulder (~04/17/24) 05/27/24 f/u at Ortho 08/06/24 F/u Ortho - pt having pain issues S/P biopsy (~08/22/23) L and R labia minora [facility] S/P repair of paraesophageal hernia At [facility] 02/20/2023-Dr.Sarah Waller History of embolectomy access thru rt groin, for PE February 2022, [facility] Status post bilateral total hip replacement (01/14/22) History of carpal tunnel surgery of left wrist History of suburethral sling procedure 12/18/18 Vaginectomy/colpocleisis with Posterior colporrhapy and transobturator mid urethral sling at [facility] History of colpocleisis History of arthroplasty of finger of left hand Hx of appendectomy Hx of thumb surgery History of ankle surgery hardware present History of bunionectomy of both great toes Status post abdominal hysterectomy Status post tonsillectomy 2017? Prolapse of female pelvic organs Stage III post hysterectomy vaginal prolapse with stress incontinence. Rx at [facility] 12/18/18. Tonsillectomy Abdominal hysterectomy ENDOMETRIOSIS; ONE OVARY REMAINS Colonoscopy - IV Sedation (04/25/16) Family History Mother , AGE 91 Alzheimer disease Father , AGE 86 Essential hypertension AAA (abdominal aortic aneurysm) Alzheimer disease Heart disease Hyperlipidemia Bladder cancer Sister No problems noted. Maternal Grandfather , SHOT AGE 35 No problems noted. Paternal Grandfather , AGE 93 Heart disease Maternal Grandmother , AGE 64 Uterine cancer Paternal Grandmother , AGE 73 AAA (abdominal aortic aneurysm) Stroke Son No problems noted. Son Asthma Son No problems noted. 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 [facility] Housing: house Number of Children: 3 number of grandchildren: 6 Communication Needs: None Education Level: college Details: Associate's Degree Do you need help understanding health information?: Never 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 [facility] Pets and animals: No Sexually active: No Do you think of yourself as: straight/heterosexual Current gender identity: female What is your relationship status?: How often do you talk on the phone with friends or family?: three or more times per week How often do you get together with friends or relatives?: twice per week Do you belong to any clubs or organized social groups?: yes Panel score (0-1 are the most socially isolated patients): 2 What type of physical activity do you participate in: weight lifting and occasional exercise Duration: > 90 minutes/day Frequency: daily Any/Jainism: Islam Special any needs: No Seatbelt use: always Helmet use: No Drive intox or ride w/intox boat driver: No Do you feel safe at home: Yes Do you feel safe in your relationship?: Yes Additional Social history: lives alone Female Reproductive History Menstrual Menopause type: surgical History History 3 Para Hx # Term Pregnancies 3 Multiple births Hx # Pregnancies Ectopic pregnancies AB induced Hx Number of Living Children AB spontaneous
[2024-11-21 12:31] LABS: BE (Venous) 5 mmol/L (-2-3); HCO3 (Venous) 30 mmol/L (23-28); O2 Sat (Venous) 79 %; TCO2 (Venous) 27 mmol/L (24-29); pCO2 (Venous) 51 mmHg (41-51); pO2 (Venous) 41 mmHg
[2024-11-21 12:33] LABS: Abs Immature Grans 0.02 10^3/uL (0.0-0.06); HCT 41.2 % (36.0-46.0); HGB 13.3 g/dL (11.2-15.7); Immature Grans % 0.3 %; MCH 30.8 pg (27.0-33.0); MCHC 32.3 % (32.0-36.0); MCV 95 fL (80-95); MPV 8.6 fL (8.0-11.0); Platelet Count 254 10^3/uL (130-400); RBC 4.32 10^6/uL (3.93-5.22); RDW 12.8 % (11.7-14.6); RDW-SD 45.7 fL; WBC 7.20 10^3/uL (4.4-10.8)
[2024-11-21 12:58] LABS: INR 1.0 (0.9-1.1); PTT Activated 28.7 sec (20.6-30.2); Prothrombin Time 10.3 sec (9.1-11.1)
[2024-11-21 13:19] LABS: ALT 21 U/L (14-59); AST 17 U/L (15-37); Albumin 3.8 g/dL (3.4-5.0); Alkaline Phosphatase 71 U/L (46-116); Anion Gap 8.4 mmol/L (3-11); BUN 13 mg/dL (7-18); Bilirubin, Total 0.4 mg/dL (0.2-1.0); CO2 30.6 mmol/L (21.0-32.0); Calcium 9.8 mg/dL (8.5-10.1); Chloride 103 mmol/L (98-107); Estimated GFR 46.33 (mL/min/1.73m2); Glucose 95 mg/dL (74-106); Magnesium 2.1 mg/dL (1.8-2.4); NT-proBNP 103 pg/mL (<300); Potassium 4.4 mmol/L (3.5-5.1); Sodium 142 mmol/L (136-145); TSH (W/Ref FT4) 2.42 uIU/mL (0.36-3.74); Total Protein 7.7 g/dL (6.4-8.2)
[2024-11-21 13:23] LABS: Troponin I < 4 ng/L (<or=51)
[2024-11-21 13:30] LABS: Glucose Negative (Negative)
--- NOTE | 2024-11-21 13:33 | DI.RAD_ITS ---
Exam(s) XR CHEST 2V PA LATERAL EXAM: XR CHEST 2V PA LATERAL CLINICAL HISTORY: cough, ?pneumonia TECHNIQUE: 2D digital imaging was performed. Two views. COMPARISON: CR XR CHEST 2V PA LATERAL from 10/05/2023 FINDINGS: HEART: Mildly enlarged. Aorta: Not dilated. PULMONARY VASCULATURE: Normal. MEDIASTINUM: Unremarkable. LUNGS: Clear. PLEURAL SPACE: No pleural effusion or pneumothorax. BONE:Right shoulder prosthesis. SOFT TISSUES: Unremarkable. IMPRESSION: No acute abnormality. DATA REPOSITORY: RADIATION DOSE DELIVERED:
[2024-11-21 14:04] LABS: Troponin I < 4 ng/L (<or=51)
--- NOTE | 2024-11-23 08:45 | NUR.NOTE ---
Access chart to reconcile EKG's in [facility] with EKG orders, duplicate order cancelled. Nursing Note:
== END 2024-11-21 14:38 | disposition home or self-care (01) ==
PROVIDERS: Emergency Provider Emergency Medicine; PCP Nurse Practitioner
DX: R07.9 Chest pain, unspecified (principal); R53.83 Other fatigue; N18.9 Chronic kidney disease, unspecified
CPT/HCPCS: 99285; 99284; 36415; 80053; 82805; 93005; 71046; 81003; 83735; 83880; 84443; 84484; 85025; 85610; 85730; 93010

== ENCOUNTER 2024-11-26 01:33 | Outpatient (CLI) | payer MEDICARE, SELFPAY ==
--- NOTE | 2024-11-26 07:00 | DI.MRI_ITS ---
Exam(s) MR LUMBAR SPINE WO EXAM: MR LUMBAR SPINE WO CLINICAL HISTORY: WORSENING PAIN,DISPLACEMENT LUMBAR INTERVERTEBRAL DISC,M51.26. TECHNIQUE: Multiplanar multisequence MRI of the Lumbar spine was performed. COMPARISON: MR MR LUMBAR SPINE WO from 08/03/[address] ABDOMEN PELVIS WO from 05/16/2022 FINDINGS: Conus medullaris is at L2 level. There is no evidence of conus mass nor subjacent clumping of intrathecal nerve roots to suggest arachnoiditis. The distal thecal sac appears unremarkable.There is no evidence of Tarlov intrasacral cysts nor other significant findings within the sacral canal Bones:There are no fractures nor ominous osseous lesions in the lumbar vertebral bodies and visualized sacrum. With respect to the individual levels... T12-L1: Unremarkable L1-2: Normal disc height and signal. However, there is a small focal right paracentral disc protrusion at this level which is more prominent thin on the MRI scan of 2021. This is a focal small protrusion which extends posteriorly 2 mm and is approximately 5 mm wide. It slightly indents the anterior right side of the thecal sac. Central canal dimensions are otherwise within normal limits at this level. There is no foraminal stenosis on either side. No significant facet arthropathy. L2-3: This level exhibits preserved disc height. There is broad annular bulging at this level which is relatively symmetrical. There is no central canal stenosis. The annular bulging extends into the floor of both exiting neural foramina, slightly more so on the left side. However, there is no significant foraminal stenosis, this related to the preserved disc height at this level. Facet joints appear unremarkable at this level. L3-4: This level exhibits mild-moderate uniform disc space narrowing. Posteriorly there is broad relatively symmetrical annular bulging without a dominant disc herniation. Central canal dimensions are lower normal. There is mild foraminal stenosis on the right side. No significant foraminal stenosis on the left side. Facet joints at this level appear unremarkable. L4-5: This level exhibits some further height loss of the disc space when compared to 2022 images. Posteriorly there is broad annular bulging which is most prominent on the central-right paracentral and extending into the exiting right neural foramen, more so than previous. This disc herniation extends posteriorly 9 mm and is approximately 25 mm wide. This results in significant compression of the anterior aspect of the thecal sac/central canal stenosis. There is moderate foraminal stenosis on the right side at this level as the disc extends into the floor of the exiting right neural foramen. This represents significant change when compared to 2021. There is only minimal foraminal narrowing on the left side at this level. There are mild-moderate degenerative changes in the facet joints at this level. L5-S1: This level exhibits preserved disc space height. There is anterior osseous lipping at this level noted. Posteriorly there is symmetrical mild annular bulging. Central canal dimensions are within normal limits. There is no significant foraminal stenosis on either side. There are moderate deg enerative changes in both facet joints at this level. Soft tissues: paraspinal soft tissues appear unremarkable. IMPRESSION: 1. Multilevel findings as described individually above. 2. However, the most significant change when compared to the MRI of July 2021 is at the L4-5 level where there is been some further disc height loss and the amount of annular bulging and disc protrusion has increased, resulting in more prominent compression of the thecal sac as well as moderate right-sided foraminal stenosis at this level. This is due to the asymmetry in the annular bulging as well as the asymmetry in the amount of disc height loss at this level which is more prominent on the right side. 3. Other level findings as described individually above. DATA REPOSITORY:
== END 2024-11-26 01:53 ==
PROVIDERS: PCP Family Medicine; Visit Provider Family Medicine
DX: M51.26 Other intervertebral disc displacement, lumbar region (principal)
CPT/HCPCS: 72148

== ENCOUNTER → 2024-11-27 09:33 | Outpatient (BNVA) | payer MEDICARE, SELFPAY | PROVIDERS: PCP Nurse Practitioner; Referring Provider Nurse Practitioner; Visit Provider Student in an Organized Health Care Education/Training Program | DX: Z47.89 Encounter for other orthopedic aftercare (principal); M76.31 Iliotibial band syndrome, right leg; M70.61 Trochanteric bursitis, right hip | CPT/HCPCS: 99024 ==

== ENCOUNTER 2025-02-03 10:14 | Outpatient (CLI) | payer MEDICARE, SELFPAY ==
--- NOTE | 2025-02-03 06:30 | DI.RAD_ITS ---
Exam(s) XR PAIN CLINIC LUMBAR SP 2V EXAM: XR PAIN CLINIC LUMBAR SP 2V CLINICAL HISTORY: Dx: Lumbar Radiculopathy TECHNIQUE: 2D and realtime digital imaging was performed. CONTRAST MATERIAL: Refer to procedure report. COMPARISON: No exams were available for comparison FINDINGS: Fluoroscopy was provided for Dr. Harrington during the performance of a lumbar epidural steroid injection. Please refer to the procedure report for complete details. Ka,r=16.6 mGy IMPRESSION: RADIATION DOSE DELIVERED: 0.0 0.0 0
[2025-02-03 10:29] VITALS: BP 107/50; PULSE 70; RESP 18; TEMP 36.8; O2SAT 96
--- NOTE | 2025-02-03 11:02 | PDOC.PAIN ---
Date of service: 02/03/25 Time of Service: 11:24 Pain Managment Procedure Note Procedure Note Procedure Note: Lumbar Interlaminar Epidural Steroid Injection Location: L5-S1 Pre-procedure Diagnosis: M54.16- Radiculopathy, LUMBAR region Post-procedure Diagnosis: The same as above Sedation: None Medication: Depo-Medrol 80 mg, Omnipaque 1 mL Estimated blood loss: less than 2 ml Surgeon: Mo Harrington MD COMMENT: severe spinal stenosis L4-5 with neurogenic claudication Procedure Detail: The procedure and potential risks were explained to the patient and informed written consent was obtained. The patient was escorted to the procedure room and placed in the prone position. Pillows were utilized for proper positioning and comfort. Time out was performed in the procedure room with nursing staff confirming the patient's identity, procedure to be performed, allergies, and any blood thinning or anti-platelet medications. The patient's neck and upper back was prepped with ChloraPrep and draped in a sterile fashion. Sterile technique was maintained throughout the procedure. Sterile gloves were used, a face mask was worn, and new single dose vials of all medications were used with the top being swabbed with alcohol and given time to dry prior to withdrawal of medication. Lidocane 1% was used to anesthetize the skin.Using a 25-gauge 1.5 inch needle, 1% lidocaine was instilled into the superficial soft tissue overlying the targeted area to provide local anesthesia. With fluoroscopic guidance, a 17 -gauge Tuohy needle was advanced toward the interlaminar space of L5-S1. The needle was then advance through the ligamentum flavum and into the posterior epidural space using the loss of resistance technique. Correct needle placement was confirmed through review of the AP and lateral fluoroscopic views. A 19-gauge arrow catheter was threaded cephalad Following negative aspiration, 1 ml of Omnipaque 240 contrast was injected which confirmed good flow throughout the epidural space and no evidence of vascular flow or flow into adjacent compartments. Next, following negative aspiration, 1 ml of normal saline and 80mg of Depo-Medrol was injected. The needle was gently removed. The patient tolerated the procedure well and was transported to the recovery area for observation and discharge instructions. Permanent images saved and recorded. PAIN PRE-PROCEDURE 8/10 POST-PROCEDURE 0/10 Plan: Follow up prn. COMMENT: could repeat if patient gets good long-lasting relief. Consider surgical eval if claudication symptoms worsen. Consider medial branch blocks and radiofrequency ablation if patient has mostly axial pain Coding Conscious Sedation used for procedure: No CPT Codes: Inj Spine L/S w/Imaging - [id number] ([id number] ~G) Additional Codes: Date of Service (11745) Diagnoses: M54.16- Radiculopathy, LUMBAR region
[2025-02-03 11:05] VITALS: PULSE 73; O2SAT 90
[2025-02-03 11:10] VITALS: PULSE 76; O2SAT 94
[2025-02-03] MEDS: Omnipaque 240 MG/ML 50 ML BTL IJ (11:22)
[2025-02-03] MEDS: Epidural Tray 1 EACH MC (11:22)
[2025-02-03] MEDS: methylPREDNISolone ACETATE 40 MG/ML VIAL IJ (11:22)
== END 2025-02-03 10:15 | disposition home or self-care (01) ==
LOC: PC 10:15
PROVIDERS: Visit Provider Anesthesiology Pain Medicine
DX: M54.50 Low back pain, unspecified (principal); M54.16 Radiculopathy, lumbar region
CPT/HCPCS: 62323; 72100; J1010; Q9967

== ENCOUNTER → 2025-02-04 09:52 | Outpatient (BNVA) | payer MEDICARE, SELFPAY | PROVIDERS: Referring Provider Nurse Practitioner; Visit Provider Student in an Organized Health Care Education/Training Program | DX: Z47.89 Encounter for other orthopedic aftercare (principal); M76.31 Iliotibial band syndrome, right leg; M70.61 Trochanteric bursitis, right hip | CPT/HCPCS: 99024 ==

== ENCOUNTER → 2025-02-04 10:23 | Outpatient (BNVA) | payer MEDICARE, SELFPAY | PROVIDERS: Visit Provider Internal Medicine Pulmonary Disease | DX: J98.4 Other disorders of lung (principal); I26.09 Other pulmonary embolism with acute cor pulmonale; G47.33 Obstructive sleep apnea (adult) (pediatric); M35.00 Sjogren syndrome, unspecified; E66.9 Obesity, unspecified; Z23 Encounter for immunization; Z87.891 Personal history of nicotine dependence | CPT/HCPCS: 99214; 90471; 90684 ==